=== PATIENT | female | born 1970 | race Caucasian/White ===

== ENCOUNTER 2016-12-03 06:58 | Day surgery (SDC) | payer OTHER ==
--- NOTE | 2016-11-29 01:25 | PREOPHP ---
DATE OF ADMISSION: 12/03/2016 The patient is coming in for surgery on 12/03/2016. HISTORY OF PRESENT ILLNESS: A 46-year-old female 4, para 2, abortions 2; with 3 living nirmall jedn, as she had twins. This patient has a history of having abnormal bleeding, repeated abnormal P ap smears, and she has been referred to me by her clinic due to endometrial hyperplasia. She had an endometrial biopsy with negative results. Her last period was 4 years ago and has started bleeding again heavily recently. She has lost 60 pounds. PAST MEDICAL HISTORY: She had 2 C-sections, left knee surgery, breast augmentation, gallbladder sanya mendy, 3 laparoscopies, liver biopsy, GI problems, brain surgery as she head trauma with bleeding, ps oriasis, and there is fatty liver, diverticulosis, and hiatal hernia. ALLERGIES: THE PATIENT IS NOT ALLERGIC TO ANY MEDICATIONS. The patient is to see her primary doctor for approval for this procedure due to abnormal INR. She h ad recently been treated with antibiotics due to a UTI. MEDICATIONS: She has been on different medications, given by her clinic. I do not have the list of medication that she has been on at this present time. The patient has been on: 1. Nortriptyline. 2. Benadryl. 3. Metoprolol. 4. Digitek. 5. Potassium. 6. Gabapentin. PAST SURGICAL HISTORY: The patient also has a history of 2 C-sections, tonsillectomy, LEEP cone, an d brain surgery in 2015. The patient is scheduled for a D and C to rule out malignancy. She is status post brain surgery. T here was cervical stenosis, abnormal uterine bleeding, and early fibroid. The patient will be place d on control pills after the D and C and the biopsy is negative for malignancy. SOCIAL HISTORY: She does smoke 3 cigarettes a day for the last 20 years. She drinks socially and p ossibly more than she is able to accept. FAMILY HISTORY: Hypertension. PHYSICAL EXAMINATION: VITAL SIGNS: Blood pressure 110/60, pulse is 80, she is afebrile, she weighs 183, she is 5 feet 2 i nches. HEAD AND NECK: Normal. BREASTS: With implants. HEART: Normal sinus rhythm with mild murmur. BACK: Normal. ABDOMEN: Soft, nontender, no masses. SKIN: With disseminated psoriatic lesions. GENITOURINARY: Genitalia is normal with atrophy. Uterus is retroverted and painful. Adnexa are ne gative. RECTAL: Negative. NEUROLOGIC: Negative. DIAGNOSES: 1. Abnormal uterine bleeding. 2. Previous section x2. 3. Endometrial hyperplasia. 4. Cervical stenosis. 5. Fibroid uterus. 6. Psoriasis. She is undergoing a fractional D and C to assess her endometrium and to further give her treatment f or her bleeding. She has been advised of the possible risks and possible complications of the surge ry with her alternatives and options. Written information was provided. She had no more questions and agreed to go ahead with the procedure with full understanding and no more questions. Dictated By: TERRENCE KRUSE/NTS Conf#: [id number] DID#: [id number]
[2016-12-02 09:38] VITALS: BMI 34.3
[~2016-12-03] VITALS: Ht 157.5 cm; Wt 82.0 kg
[2016-12-03] VITALS (20 sets, daily range): BP systolic 76–127; BP diastolic 42–74; PULSE 88–110; RESP 14–27; Ht 157.5 cm; Wt 82.0 kg
[~2016-12-03 06:58] MED LIST: AMIT50TA3 PO; DIAZ-90 PO; FURO20TA3 PO; IBUP400T22 PO; IBUP800T25 PO; LACT20SO2 PO; ONDA4TAB35 PO; OXYC5CAP17 PO; PANT40TA4 PO; POTA20TA8 PO; SPIR50TA PO; TRAM50TA2 PO
[2016-12-03] MEDS ORDERED: CEFAZOLIN 2 GM/50 ML (PMX) 50 ML IVPB ONE (07:00)
[2016-12-03] MEDS ORDERED: DIGO250T PO (08:01)
[2016-12-03] MEDS ORDERED: DOCU-159 PO (08:02)
[2016-12-03] MEDS ORDERED: GABA300C16 PO (08:03)
[2016-12-03] MEDS ORDERED: NORT50CA PO (08:03)
[2016-12-03] MEDS ORDERED: OMEP40CA6 PO (08:04)
[2016-12-03] MEDS ORDERED: LIDO15CR9 TP (08:05)
[2016-12-03] MEDS ORDERED: BEN50 PO (08:05)
[2016-12-03] MEDS ORDERED: DICL100G37 TOP (08:05)
[2016-12-03] MEDS ORDERED: KETOROLAC 30 MG INJ ONE (09:08)
[2016-12-03] MEDS ORDERED: METOCLOPRAMIDE 10 MG INJ ONE (09:08)
[2016-12-03] MEDS ORDERED: PROPOFOL 20 ML ONE (09:08)
[2016-12-03] MEDS ORDERED: MIDAZOLAM 1 MG/ML 2 ML INJ ONE (09:08)
--- NOTE | 2016-12-03 09:17 | HPN ---
Date/Time of Note Date/Time of Note DATE: 12/03/16 TIME: 09:16 Interval H&P Admission Note Pt. seen H&P reviewed: No system changes TERRENCE COLBERT MD Dec 03, 2016 09:17
[2016-12-03] MEDS ORDERED: CEFAZOLIN 1 GM INJ ONE (09:29)
[2016-12-03] MEDS ORDERED: FENTAnyl 50 MCG/ML VIAL ONE (09:30)
[2016-12-03] MEDS ORDERED: OXYCODONE/ACETAMINOPHEN (5/325) TAB PO PRN ×2 (10:00)
[2016-12-03] MEDS ORDERED: HYDROmorphONE (0.2 MG/ML) 10ML SYG IV PRN ×3 (10:00)
[2016-12-03] MEDS ORDERED: METOCLOPRAMIDE 10 MG INJ IV PRN (10:00)
[2016-12-03] MEDS ORDERED: DIPHENHYDRAMINE 50 MG INJ IV PRN (10:00)
[2016-12-03] MEDS ORDERED: ONDANSETRON 4 MG INJ IV PRN ×2 (10:00→10:30)
[2016-12-03] MEDS ORDERED: MEPERIDINE 25 MG INJ IV PRN (10:00)
--- NOTE | 2016-12-03 10:03 | PD.PPDC ---
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
--- NOTE | 2016-12-03 10:12 | OPR ---
Date/Time of Note Date/Time of Note DATE: 12/03/16 TIME: 10:04 Operative Report Free Text/Dictation Procedure The patient was placed in the lithotomy position, the perineal vaginal area were prepped and draped and confirmatory examination under anesthesia revealed that she had pelvic prolapse of the bladder and rectum to a grade 2 with marked atrophy of the vagina. The cervix was non-prolapsed and stenotic,the ECC was done and the uterus was sounded to a depth of 3 inches and dilated with dilators and a hysteroscope was placed in. Visualization of the cavity was clear with no obvious fibroids or polyps. The hysteroscope was removed then the endometrium was scraped anteriorly posteriorly, laterally and the fundal florian. A very scanty tissue was obtained. The patient tolerated the procedure well and left the OR awake and stable, sponge counts and instruments counts were correct and intravenous antibiotics were given for prophylaxis Procedure Date: Dec 03, 2016 Preoperative Diagnosis ABNORMAL UTERINE BLEEDING ENDOMETRIAL HYPERPLASIA CERVICAL STENOSIS FIBROID UTERUS PSORIASIS Postoperative Diagnosis SAME Operation Performed HYSTEROSCOPY D&C Surgeon: TERRENCE COLBERT MD Anesthesia: general Anesthesiologist: OBI BRIDGES MD Estimated Blood Loss: none Complications: None Pt Condition Post Procedure: stable Disposition: PACU TERRENCE COLBERT MD Dec 03, 2016 10:12
[2016-12-03] MEDS ORDERED: KETOROLAC 30 MG INJ IV PRN (10:30)
[2016-12-03] MEDS ORDERED: EPHEDrine SULFATE 50 MG/5 ML SYG ONE (10:56)
[2016-12-03] MEDS ORDERED: EPHEDrine SULFATE 50 MG/5 ML SYG IV PRN (11:00)
== END 2016-12-03 12:24 | disposition home or self-care (01) ==
LOC: SDS 06:58
PROVIDERS: ATTEND Obstetrics & Gynecology
DX: N85.00 Endometrial hyperplasia, unspecified (principal); N88.2 Stricture and stenosis of cervix uteri; D25.9 Leiomyoma of uterus, unspecified; L40.9 Psoriasis, unspecified
CPT/HCPCS: 58558; 84703; J0690; J2175; J2250; J2405; J2765; J3010; Z7512; Z7610; 88305; J1885

== ENCOUNTER 2017-08-16 11:20 | Emergency (ER) | END 2017-08-16 21:54 | disposition left against medical advice (07) ==

== ENCOUNTER 2017-11-26 22:26 | Inpatient (IN) | END 2017-12-04 15:25 | disposition home or self-care (01) | DRG 354 ==

== ENCOUNTER 2017-12-05 11:28 | Inpatient (IN) | END 2017-12-10 16:20 | disposition home or self-care (01) | DRG 920 ==

== ENCOUNTER 2018-04-09 18:11 | Inpatient (IN) | END 2018-04-16 13:30 | disposition home or self-care (01) | DRG 434 ==

== ENCOUNTER 2018-04-26 18:39 | Inpatient (IN) | END 2018-05-02 11:49 | disposition home or self-care (01) | DRG 372 ==

== ENCOUNTER 2018-05-15 12:55 | Emergency (ER) | END 2018-05-15 18:16 | disposition home or self-care (01) ==

== ENCOUNTER 2018-06-14 10:28 | Emergency (ER) | payer OTHER ==
[~2018-06-14] VITALS: Ht 157.5 cm; Wt 71.8 kg
[~2018-06-14 10:28] MED LIST changes: -AMIT50TA3 PO; +CARAS PO; -DIAZ-90 PO; -FURO20TA3 PO; -IBUP400T22 PO; -IBUP800T25 PO; -LACT20SO2 PO; +METO5TAB58 PO; +OMEP20CA16 PO; +ONDA4TAB13 PO; -ONDA4TAB35 PO; +OXYC-279 PO; -OXYC5CAP17 PO; -PANT40TA4 PO; +POTA20TA15 PO; -POTA20TA8 PO; +SPIR100T PO; +TRAM50TA PO; -TRAM50TA2 PO
[2018-06-14 10:36] VITALS: Ht 157.5 cm; Wt 71.8 kg
[2018-06-14 11:40] VITALS: BP 133/86; PULSE 117; RESP 20
--- NOTE | 2018-06-14 12:13 | ERD ---
ER Documentation Chief Complaint Chief Complaint liver cirrhosis sent by for paracentesis and possible uti HPI The patient is a 48-year-old female, presenting to the ER for abdominal pa racentesis and possible UTI. She has recurrent abdominal ascites for the last couple days, her last abdominal paracentesis was recently, denies fever, chills, neck pain, chest pain, dyspnea, complains of abdominal distention, complaint of dysuria, denies diarrhea. Medical history: Cirrhosis, bipolar, PTSD, OCD, hypertension, IBS Past surgical history: Cholecystectomy ROS All systems reviewed and are negative except as per history of present illness. Medications Home Meds Active Scripts Ondansetron (Ondansetron Odt) 4 Mg Tab.rapdis, 4 MG PO Q6H PRN for NAUSEA AND/OR VOMITING, #10 TAB Prov:ALEXANDRIA QUIROGA MD 06/14/18 Hydrocodone/Acetaminophen ([place] 5-325 Tablet) 1 Each Tablet, 1 TAB PO Q6H PRN for PAIN, #5 TAB Prov:ALEXANDRIA QUIROGA MD 06/14/18 Sucralfate* (Carafate*) 1 Gm/10 Ml Susp, 1 GM PO QID for 30 Days, EA Prov:RADHA MORALES MD 05/20/18 Metoclopramide* (Reglan*) 5 Mg Tablet, 5 MG PO DAILY PRN for NAUSEA AND/OR VOMITING for 30 Days, TAB Prov:RADHA MORALES MD 05/20/18 Reported Medications Oxycodone HCl/Acetaminophen (Percocet 5-325 mg Tablet) 1 Each Tablet, 1 EACH PO DAILY PRN for PAIN, TAB 05/15/18 Tramadol Hcl* (Ultram*) 50 Mg Tablet, 50 MG PO BID PRN for PAIN, TAB 05/15/18 Spironolactone* (Aldactone*) 100 Mg Tablet, 100 MG PO BID, #60 TAB 05/15/18 Spironolactone* (Aldactone*) 50 Mg Tablet, 50 MG PO DAILY, #30 TAB 05/15/18 Ondansetron Hcl* (Zofran*) 4 Mg Tab, 4 MG PO Q6H PRN for NAUSEA AND OR VOMITING, TAB 05/15/18 Omeprazole* (Omeprazole*) 20 Mg Capsule.dr, 20 MG PO BID, #60 CAP 05/15/18 Potassium Chloride* (K-Dur*) 20 Meq Tab.prt.sr, 20 MEQ PO BID, TAB.SA 05/15/18 Allergies Allergies: Coded Allergies: No Known Allergy (Unverified , 06/14/18) PMhx/Soc History of Surgery: No (brain surgery, tosillectomy, cholecystectomy, hernia surgery) Anesthesia Reaction: No Hx 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 Disorder: No Hx Respiratory Disorders: No Hx Cardiac Disorders: Yes (enlarged heart, hyperlipidemia) Hx Psychiatric Problems: Yes (Bipolar, PTSD, OCD) Hx Miscellaneous Medical Probl: Yes (LIVER CIRRHOSIS ) Hx Alcohol Use: No (last drink x 2 years ago) Hx Substance Use: No (denies) Hx Tobacco Use: Yes Smoking Status: Current some day smoker Physical Exam Vitals Vital Signs Date Temp Pulse Resp B/P (MAP) Pulse Ox O2 O2 Flow FiO2 Time Delivery Rate 06/14/18 98.0 117 20 133/86 99 Room Air 11:40 (102) 06/14/18 97.0 120 18 129/77 99 10:36 (94) Physical Exam Const: No acute distress. Head: Atraumatic. Eyes: Normal Conjunctiva. ENT: Normal External Ears, Nose and Mouth. Neck: Full range of motion. No meningismus. Resp: Clear to auscultation bilaterally. Cardio: Regular tachycardic Abd: Soft, normal bowel sounds, ascites, nontender Skin: No petechiae or rashes. Back: No midline or flank tenderness. Ext: No cyanosis, or edema. Neur: Awake and alert. No focal deficit Psych: Normal Mood and Affect. Results 24 hrs Laboratory Tests Test 06/14/18 11:35 Urine Color KALEB Urine Clarity SLIGHTLY CLOUDY Urine pH 5.0 Urine Specific [place] 1.031 Urine Ketones NEGATIVE mg/dL Urine Nitrite NEGATIVE mg/dL Urine Bilirubin 1+ mg/dL Urine Urobilinogen 2+ mg/dL Urine Leukocyte Esterase NEGATIVE Cindi/ul Urine Microscopic RBC 0 /HPF Urine Microscopic WBC 2 /HPF Urine Squamous Epithelial Cells FEW /HPF Urine Mucus MODERATE /HPF Urine Hemoglobin NEGATIVE mg/dL Urine Glucose NEGATIVE mg/dL Urine Total Protein 1+ mg/dl Urine Test NEGATIVE Current Medications Medications Dose Sig/Corey Start Time Status Last (Trade) Ordered Route PRN Stop Time Admin Dose Reason Admin Lidocaine 5 ml STK-MED 06/14/18 DC 06/14/18 (Xylocaine ONCE .ROUTE 12:29 06/14/18 12:30 1% (Mpf)) 12:30 Ondansetron 4 mg ONCE STAT 06/14/18 DC HCl (Zofran ODT 13:30 06/14/18 Odt) 13:35 Ondansetron 4 mg ONCE STAT 06/14/18 DC HCl (Zofran ODT 13:30 06/14/18 Odt) 13:35 Procedures/[place] [id number] Radiology Main Line: [phone] DIAGNOSTIC IMAGING REPORT Patient: ESTHER AGUILLON : 1970 Age: 48 Sex: F MR #: [id number] DOS: 06/14/18 1128 Ordering MD: ANDRIA PELAEZ MD Location: E/R Room/Bed: PROCEDURE: Ultrasound guided paracentesis. CLINICAL INDICATION: Ascites and shortness of breath. COMPARISON: May 20, 2018. TECHNIQUE: The risks, benefits, and alternatives were explained to the patient and/or the patient's family, including but not limited to bleeding, infection, pain, visceral or vascular damage, shock, and . The patient and/or the patient's family understood the risks and the alternatives and wished to proceed with the procedure. Informed written consent was obtained. A procedural time out was performed. The patient's name, date of , and procedure to be performed were verified. Utilizing ultrasound guidance, optimal location for entry to the peritoneal cavity was ascertained. The overlying skin was prepped and draped in the usual sterile fashion. Approximately 10 ml of 1% Xylocaine was injected locally for pain control. Using ultrasound guidance, an 8 Uzbek catheter was introduced into the peritoneal cavity in the right lower quadrant without difficulty. Specimens: None. Blood loss: 1 ml. Complications: None. Security Officer: None. Anesthesia: Local. Graft/Implant: None. FINDINGS: Initial images demonstrate ascites. Approximately 5 liters of serous fluid was aspirated and discarded. The patient tolerated the procedure well without complication. IMPRESSION: 1. Successful ultrasound-guided paracentesis. RPTAT: QQ .Gilson Buckner MD, MD Date Time Electronically viewed and signed by .Gilson Buckner MD, MD on 06/14/2018 15:37 .R/ CC: ANDRIA PELAEZ MD [id number] MEDICAL MAKING DECISION: The patient is a 48-year-old female, presenting to the ER for therapeutic abdominocentesis, she had abdominocentesis by radiologist with good response, stable for outpatient follow-up. I do not suspect SBP. She requested pain medications she was given [place] 5 mg p.o. and Zofran ODT The differential diagnoses considered include but are not limited to choledocho lithiasis, cholangitis, pancreatitis, hepatitis, gastritis, peptic ulcer disease, gastric ulcer, appendicitis, cystitis, diverticulitis, partial small bowel obstruction. Departure Diagnosis: Primary Impression: Ascites Condition: Good Comments She was discharge with 5 tablets of [place] and Zofran ODT I discussed the findings with the patient. I advised the patient to follow-up with the primary physician in about 1-2 days, sooner if needed and return if any concern. Disclaimer: Inadvertent spelling and grammatical errors are likely due to EHR/dictation software use and do not reflect on the overall quality of patient care. Also, please note that the electronic time recorded on this note does not necessarily reflect the actual time of the patient encounter. ALEXANDRIA QUIROGA MD Jun 14, 2018 12:13
[2018-06-14] MEDS ORDERED: LIDOCAINE 1% (MPF) 5 ML VIAL ONE (12:29)
--- NOTE | 2018-06-14 12:30 | NUR ---
ULTRASOUND GUIDED PARACENTESIS PERFORMED BY DR OVIEDO,5000ML FLUID ASPIRATED AND DISCARDED
[2018-06-14] MEDS ORDERED: ONDANSETRON (ODT) 4 MG TAB ODT STA ×2 (13:30)
[2018-06-14] MEDS ORDERED: ONDA4TAB14 PO (14:01)
[2018-06-14] MEDS ORDERED: HYDR-4011 PO (14:01)
== END 2018-06-14 13:50 | disposition home or self-care (01) ==
LOC: E/R 10:28
DX: R18.8 Other ascites (principal); F17.210 Nicotine dependence, cigarettes, uncomplicated
CPT/HCPCS: 49083; 81001; 84703; Z7502; Z7610

== ENCOUNTER 2018-06-28 17:29 | Emergency (ER) | payer OTHER ==
[~2018-06-28] VITALS: Ht 167.6 cm; Wt 80.0 kg
[~2018-06-28 17:29] MED LIST changes: +HYDR-4011 PO; +ONDA4TAB14 PO
[2018-06-28 17:35] VITALS: Ht 167.6 cm; Wt 80.0 kg
[2018-06-28] MEDS ORDERED: ONDANSETRON 4 MG INJ IM STA (17:47)
[2018-06-28] MEDS ORDERED: FENTAnyl 50 MCG/ML VIAL IV ONE (18:30)
[2018-06-28] MEDS ORDERED: MIDO5TAB PO (18:33)
[2018-06-28] MEDS ORDERED: LACT10SO53 PO (18:35)
[2018-06-28] MEDS ORDERED: ALBU18HF INHALATION (18:35)
[2018-06-28] MEDS ORDERED: LIDOCAINE 1% (MPF) 5 ML VIAL ONE (19:31)
--- NOTE | 2018-06-28 19:35 | ERD ---
ER Documentation Chief Complaint Chief Complaint BIB RA FOR EVAL OF [place] ASCITES HPI 48-year-old female with a history of cirrhosis with multiple previous visits for paracenteses brought in by ambulance from home complaining of worsening abdominal distention and pain. Her distention is worse than it usually is, causing her increasing pain. She always has pressure-like pain but she also has bilateral pain on the sides of her abdomen that feels like a stretching pain. She denies any fever, chills, diarrhea, constipation. She endorses nausea but no vomiting. She is currently taking spironolactone but not on Lasix. ROS All systems reviewed and are negative except as per history of present illness. Medications Home Meds Active Scripts Metoclopramide* (Reglan*) 10 Mg Tablet, 10 MG PO Q6 PRN for NAUSEA AND/OR VOMITING, #10 TAB Prov:RADHA MORALES MD 06/28/18 Hydrocodone/Acetaminophen ([place] 5-325 Tablet) 1 Each Tablet, 1 TAB PO Q6H PRN for PAIN, #7 TAB Prov:RADHA MORALES MD 06/28/18 Ondansetron (Ondansetron Odt) 4 Mg Tab.rapdis, 4 MG PO Q6H PRN for NAUSEA AND/OR VOMITING, #10 TAB Prov:ALEXANDRIA QUIROGA MD 06/14/18 Metoclopramide* (Reglan*) 5 Mg Tablet, 5 MG PO DAILY PRN for NAUSEA AND/OR VOMITING for 30 Days, TAB Prov:RADHA MORALES MD 05/20/18 Reported Medications Lactulose (Constulose) 10 Gm/15 Ml Solution, 10 GM PO NEEDED 06/28/18 Albuterol Sulfate* (Ventolin HFA*) 18 Gm Hfa.aer.ad, 2 PUFF INHALATION Q4H, #1 INHALER 06/28/18 Midodrine* (Midodrine*) 5 Mg Tablet, 5 MG PO TID, TAB 06/28/18 Spironolactone* (Aldactone*) 100 Mg Tablet, 100 MG PO BID, #60 TAB 05/15/18 Spironolactone* (Aldactone*) 50 Mg Tablet, 50 MG PO DAILY, #30 TAB 05/15/18 Omeprazole* (Omeprazole*) 20 Mg Capsule.dr, 20 MG PO BID, #60 CAP 05/15/18 Potassium Chloride* (K-Dur*) 20 Meq Tab.prt.sr, 20 MEQ PO BID, TAB.SA 05/15/18 Discontinued Reported Medications Oxycodone HCl/Acetaminophen (Percocet 5-325 mg Tablet) 1 Each Tablet, 1 EACH PO DAILY PRN for PAIN, TAB 05/15/18 Tramadol Hcl* (Ultram*) 50 Mg Tablet, 50 MG PO BID PRN for PAIN, TAB 05/15/18 Ondansetron Hcl* (Zofran*) 4 Mg Tab, 4 MG PO Q6H PRN for NAUSEA AND OR VOMITING, TAB 05/15/18 Discontinued Scripts Hydrocodone/Acetaminophen ([place] 5-325 Tablet) 1 Each Tablet, 1 TAB PO Q6H PRN for PAIN, #5 TAB Prov:ALEXANDRIA QUIROGA MD 06/14/18 Sucralfate* (Carafate*) 1 Gm/10 Ml Susp, 1 GM PO QID for 30 Days, EA Prov:RADHA MORALES MD 05/20/18 Allergies Allergies: Coded Allergies: No Known Allergy (Unverified , 06/28/18) PMhx/Soc History of Surgery: No (brain surgery, tosillectomy, cholecystectomy, hernia surgery, c section x 2) Anesthesia Reaction: No Hx 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 Disorder: No Hx Respiratory Disorders: No Hx Cardiac Disorders: Yes (enlarged heart, hyperlipidemia) Hx Psychiatric Problems: Yes (Bipolar, PTSD, OCD) Hx Miscellaneous Medical Probl: Yes (LIVER CIRRHOSIS ) Hx Alcohol Use: No (last drink x 2 years ago) Hx Substance Use: No (denies) Hx Tobacco Use: No (last smoke x 1 week ago) Smoking Status: Former smoker FmHx Family History: No diabetes Physical Exam Vitals Vital Signs Date Temp Pulse Resp B/P (MAP) Pulse Ox O2 O2 Flow FiO2 Time Delivery Rate 06/28/18 102 16 119/82 99 Room Air 20:30 (94) 06/28/18 115 11 130/92 99 Room Air 17:50 (105) 06/28/18 98.2 115 16 125/89 99 17:35 (101) Physical Exam Const: Appears to be in distress due to pain, nontoxic Head: Atraumatic Eyes: Normal Conjunctiva ENT: Normal External Ears, Nose and Mouth. Neck: Full range of motion. No meningismus. Resp: Clear to auscultation bilaterally Cardio: Regular rate and rhythm, no murmurs Abd: Soft, very distended, fluid wave. No hernias noted. No peritoneal signs normal bowel sounds Skin: No petechiae or rashes Back: No midline or flank tenderness Ext: No cyanosis, or edema Neur: Awake and alert Psych: Normal Mood and Affect Result Diagram: 06/28/18180706/28/181807 Results 24 hrs Laboratory Tests Test 06/28/18 18:08 White Blood Count 7.3 10^3/ul Red Blood Count 2.79 10^6/ul Hemoglobin 10.0 g/dl Hematocrit 29.3 % Mean Corpuscular Volume 105.0 fl Mean Corpuscular Hemoglobin 35.8 pg Mean Corpuscular Hemoglobin Concent 34.1 g/dl Red Cell Distribution Width 15.8 % Platelet Count 69 10^3/UL Mean Platelet Volume 9.0 fl Immature Granulocytes % 1.000 % Neutrophils % % Segmented Neutrophils % (Manual) 67 % Lymphocytes % % Lymphocytes % (Manual) 18 % Reactive Lymphocytes % (Manual) 4 % Monocytes % % Monocytes % (Manual) 7 % Eosinophils % % Eosinophils % (Manual) 4 % Basophils % % Nucleated Red Blood Cells % 0.0 /100WBC Immature Granulocytes # 0.070 10^3/ul Neutrophils # 10^3/ul Lymphocytes (Manual) 1.3 10^3/ul Lymphocytes # 10^3/ul Reactive Lymphocytes # 0.2 10^3/ul Monocytes # 10^3/ul Monocytes # (Manual) 0.5 10^3/ul Eosinophils # 10^3/ul Basophils # 10^3/ul Nucleated Red Blood Cells # 10^3/ul Platelet Estimate DECREASED Polychromasia 1+ Poikilocytosis 2+ Anisocytosis 1+ Macrocytosis 1+ Ovalocytes 2+ Prothrombin Time 24.6 Sec Prothrombin Time Ratio 1.9 INR International Normalized Ratio 2.21 Activated Partial Thromboplast Time 35.9 Sec Sodium Level 129 mmol/L Potassium Level 4.3 mmol/L Chloride Level 99 mmol/L Carbon Dioxide Level 22 mmol/L Anion Gap 8 Blood Urea Nitrogen 6 mg/dl Creatinine 0.44 mg/dl Est Glomerular Filtrat Rate mL/min > 60 mL/min Glucose Level 129 mg/dl Calcium Level 8.0 mg/dl Total Bilirubin 6.7 mg/dl Direct Bilirubin 0.60 mg/dl Indirect Bilirubin 6.1 mg/dl Aspartate Amino Transf (AST/SGOT) 88 IU/L Alanine Aminotransferase (ALT/SGPT) 55 IU/L Alkaline Phosphatase 143 IU/L Total Protein 7.1 g/dl Albumin 2.7 g/dl Globulin 4.40 g/dl Albumin/Globulin Ratio 0.61 Current Medications Medications Dose Sig/Corey Start Time Status Last (Trade) Ordered Route PRN Stop Time Admin Dose Reason Admin Ondansetron 4 mg ONCE STAT 06/28/18 DC 06/28/18 HCl (Zofran IM 17:47 18:10 Inj) 06/28/18 17:48 Fentanyl 50 mcg ONCE ONCE 06/28/18 DC 06/28/18 (Sublimaze) IV 18:30 18:27 06/28/18 18:31 Lidocaine 5 ml STK-MED 06/28/18 DC 06/28/18 (Xylocaine ONCE .ROUTE 19:31 19:35 1% (Mpf)) 06/28/18 19:32 1 tab ONCE ONCE 06/28/18 DC 06/28/18 Acetaminophen PO 20:00 20:28 / 06/28/18 20:01 Hydrocodone Bitart ([place] (5/325)) 10 mg ONCE ONCE 06/28/18 DC 06/28/18 Metoclopramid IV 20:00 20:28 e HCl 06/28/18 20:01 (Reglan) Procedures/[facility] EMERGENT LABS AND DIAGNOSTIC STUDIES: Lab Results above were reviewed and interpreted by me. CBC: Mild anemia, thrombocytopenia. No evidence of infection CMP: Hyponatremia, consistent with fluid overload due to ascites. Liver function tests abnormalities consistent with chronic liver disease. Coags abnormal, at patient's baseline, consistent with coagulopathy due to liver disease Initial Nursing notes reviewed. Previous Medical Records requested via the Electronic Health Record. EMERGENCY DEPARTMENT COURSE / MEDICAL DECISION MAKING: Procedure - Paracentesis by me: Patient consented, sterilely draped, full prep, gown, glove, mask, time out pe rformed. Anesthesia: 1% lidocaine locally Location: Left lower Quadrant Device: Needle aspiration with [id number] drainage Results: 5 liters clear fluid, without bleeding No complications. ED Ultrasound: Fluid pocket localized by technician plant and maintenance under concurrent ultrasound guidance. Real time image archived in the medical record confirming anatomy. Patient tolerated the procedure well. I do not suspect SBP or other cause of acute surgical abdomen. On repeat abdominal exam, she did not have any specific location of tenderness or any peritoneal signs. She was treated with pain medications and antiemetics for her symptoms. Prescription for pain medications and antiemetics given. I do not feel she needs hospitalization at this point. Discharge instructions discussed. Patient's blood pressure was elevated (>120/80) but appears stable without evidence of hypertensive emergency or urgency. The patient was counseled about the risks of hypertension and urged to pursue outpatient monitoring and therapy within a week with their primary care physician. Departure Diagnosis: Primary Impression: Ascites Ascites type: due to alcoholic cirrhosis Qualified Codes: K70.31 - Alcoholic cirrhosis of liver with ascites Additional Impressions: Nausea and vomiting Vomiting type: unspecified Vomiting Intractability: non-intractable Qualified Codes: R11.2 - Nausea with vomiting, unspecified Generalized abdominal pain Condition: Stable EKRADHA KAHN MD Jun 28, 2018 19:35
[2018-06-28] MEDS ORDERED: HYDR-4011 PO (19:48)
[2018-06-28] MEDS ORDERED: METO10TA92 PO (19:48)
[2018-06-28] MEDS ORDERED: HYDROCODONE/APAP (5/325) TAB PO ONE (20:00)
[2018-06-28] MEDS ORDERED: METOCLOPRAMIDE 10 MG INJ IV ONE (20:00)
[2018-06-28 20:30] VITALS: BP 119/82; PULSE 102; RESP 16
== END 2018-06-28 21:11 | disposition home or self-care (01) ==
LOC: E/R 17:29
DX: K70.31 Alcoholic cirrhosis of liver with ascites (principal); R40.2142 Coma scale, eyes open, spontaneous, at arrival to emergency department; R40.2252 Coma scale, best verbal response, oriented, at arrival to emergency department; R40.2362 Coma scale, best motor response, obeys commands, at arrival to emergency department; Z87.891 Personal history of nicotine dependence
CPT/HCPCS: 36415; 49083; 80053; 85025; 85610; 85730; 96372; 96374; J2405; J2765; J3010; Z7502; Z7610

== ENCOUNTER 2018-07-04 11:25 | Inpatient (IN) | payer OTHER ==
[~2018-07-04] VITALS: Ht 165.1 cm; Wt 68.0 kg
[~2018-07-04 11:25] MED LIST changes: +ALBU18HF INHALATION; -CARAS PO; +LACT10SO53 PO; +METO10TA92 PO; +MIDO5TAB PO; -ONDA4TAB13 PO; -OXYC-279 PO; -TRAM50TA PO
[2018-07-04 11:32] VITALS: Ht 165.1 cm; Wt 68.0 kg
[2018-07-04] MEDS ORDERED: PIPER-TAZO 3.375 GM IV (PMX) 100 ML IVPB STA (11:38)
[2018-07-04] MEDS ORDERED: HYDROmorphONE 2 MG/ML SYG IV STA ×2 (11:38→13:14)
[2018-07-04] MEDS ORDERED: VANCOMYCIN 1 GM (PMX) 250 ML IVPB STA (11:38)
[2018-07-04] MEDS ORDERED: ONDANSETRON 4 MG INJ IV STA (11:38)
[2018-07-04] MEDS ORDERED: SODIUM CHLORIDE 0.9% 1L BAG IV* STA (12:15)
[2018-07-04] MEDS ORDERED: LIDOCAINE 1% (MPF) 5 ML VIAL ONE (13:41)
[2018-07-04] MEDS ORDERED: ONDANSETRON 4 MG INJ IV PRN (14:30)
[2018-07-04] MEDS ORDERED: ACETAMINOPHEN 325 MG TAB PO PRN (14:30)
--- NOTE | 2018-07-04 14:56 | ERD ---
ER Documentation Chief Complaint Chief Complaint Left foot swelling reddness also distended abdomen HPI Patient is a 48-year-old female with cirrhosis who presents with swelling. The patient was brought in by ambulance. She had a recent paracentesis but was supposed to have more done. She has "edema in legs" bilaterally. The patient says that she cannot walk because of the pain. She has redness of the left leg and swelling as well. Her symptoms started 4 days ago and have worsened. She has had no treatment as of yet. Upon review of old medical records the patient has multiple visits to the ER for various complaints. She goes to the [facility]. ROS All systems reviewed and are negative except as per history of present illness. Medications Home Meds Active Scripts Hydrocodone/Acetaminophen ([place] 5-325 Tablet) 1 Each Tablet, 1 TAB PO Q6H PRN for PAIN, #7 TAB Prov:RADHA MORALES MD 06/28/18 Ondansetron (Ondansetron Odt) 4 Mg Tab.rapdis, 4 MG PO Q6H PRN for NAUSEA AND/OR VOMITING, #10 TAB Prov:ALEXANDRIA QUIROGA MD 06/14/18 Reported Medications Lactulose (Constulose) 10 Gm/15 Ml Solution, 10 GM PO NEEDED 06/28/18 Albuterol Sulfate* (Ventolin HFA*) 18 Gm Hfa.aer.ad, 2 PUFF INHALATION Q4H, #1 INHALER 06/28/18 Midodrine* (Midodrine*) 5 Mg Tablet, 5 MG PO TID, TAB 06/28/18 Spironolactone* (Aldactone*) 100 Mg Tablet, 100 MG PO BID, #60 TAB 05/15/18 Omeprazole* (Omeprazole*) 20 Mg Capsule.dr, 20 MG PO BID, #60 CAP 05/15/18 Potassium Chloride* (K-Dur*) 20 Meq Tab.prt.sr, 20 MEQ PO BID, TAB.SA 05/15/18 Discontinued Reported Medications Spironolactone* (Aldactone*) 50 Mg Tablet, 50 MG PO DAILY, #30 TAB 05/15/18 Oxycodone HCl/Acetaminophen (Percocet 5-325 mg Tablet) 1 Each Tablet, 1 EACH PO DAILY PRN for PAIN, TAB 05/15/18 Tramadol Hcl* (Ultram*) 50 Mg Tablet, 50 MG PO BID PRN for PAIN, TAB 05/15/18 Ondansetron Hcl* (Zofran*) 4 Mg Tab, 4 MG PO Q6H PRN for NAUSEA AND OR VOMITING, TAB 05/15/18 Discontinued Scripts Metoclopramide* (Reglan*) 10 Mg Tablet, 10 MG PO Q6 PRN for NAUSEA AND/OR VOMITING, #10 TAB Prov:RADHA MORALES MD 06/28/18 Metoclopramide* (Reglan*) 5 Mg Tablet, 5 MG PO DAILY PRN for NAUSEA AND/OR VOMITING for 30 Days, TAB Prov:RADHA MORALES MD 05/20/18 Hydrocodone/Acetaminophen ([place] 5-325 Tablet) 1 Each Tablet, 1 TAB PO Q6H PRN for PAIN, #5 TAB Prov:ALEXANDRIA QUIROGA MD 06/14/18 Sucralfate* (Carafate*) 1 Gm/10 Ml Susp, 1 GM PO QID for 30 Days, EA Prov:RADHA MORALES MD 05/20/18 Allergies Allergies: Coded Allergies: No Known Allergy (Unverified , 07/04/18) PMhx/Soc History of Surgery: No (brain surgery, tosillectomy, cholecystectomy, hernia surgery, c section x 2) Anesthesia Reaction: No Hx 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 Disorder: No Hx Respiratory Disorders: No Hx Cardiac Disorders: Yes (enlarged heart, hyperlipidemia) Hx Psychiatric Problems: Yes (Bipolar, PTSD, OCD) Hx Miscellaneous Medical Probl: Yes (LIVER CIRRHOSIS ) Hx Alcohol Use: Yes (last drink x 2 years ago) Hx Substance Use: No (denies) Hx Tobacco Use: Yes Smoking Status: Former smoker FmHx Family History: No diabetes Physical Exam Vitals Vital Signs Date Temp Pulse Resp B/P (MAP) Pulse Ox O2 O2 Flow FiO2 Time Delivery Rate 07/04/18 98.7 131 19 82/39 (53) 99 Room Air 14:42 07/04/18 134 19 114/64 98 Room Air 13:00 (81) 07/04/18 99.7 120 20 134/77 100 11:32 (96) Physical Exam Const: No acute distress Head: Atraumatic Eyes: Normal Conjunctiva ENT: Normal External Ears, Nose and Mouth. Neck: Full range of motion. No meningismus. Resp: Clear to auscultation bilaterally Cardio: Regular rate and rhythm, no murmurs Abd: Distended abdomen with positive fluid wave Skin: Redness to the left leg without crepitus consistent with cellulitis but doubt necrotizing fasciitis Back: No midline or flank tenderness Ext: Bilateral lower extremity edema with 2+ pitting Neur: Awake and alert Psych: Normal Mood and Affect Result Diagram: 07/04/18 1212 07/04/18 1212 Results 24 hrs Laboratory Tests Test 07/04/18 12:08 07/04/18 12:12 07/04/18 14:37 POC Venous Lactate 2.7 mmol/L 3.1 mmol/L White Blood Count 7.7 10^3/ul Red Blood Count 2.61 10^6/ul Hemoglobin 9.2 g/dl Hematocrit 27.6 % Mean Corpuscular Volume 105.7 fl Mean Corpuscular Hemoglobin 35.2 pg Mean Corpuscular 33.3 g/dl Hemoglobin Concent Red Cell Distribution Width 15.9 % Platelet Count 78 10^3/UL Mean Platelet Volume 9.7 fl Immature Granulocytes % 4.300 % Neutrophils % % Segmented Neutrophils % (Manual) 76 % Band Neutrophils % (Manual) 5 % Lymphocytes % % Lymphocytes % (Manual) 7 % Monocytes % % Monocytes % (Manual) 11 % Eosinophils % % Basophils % % Promyelocytes % (Manual) 1 % Nucleated Red Blood Cells % 0.0 /100WBC Immature Granulocytes # 0.330 10^3/ul Neutrophils # 10^3/ul Neutrophils # (Manual) 5.9 10^3/ul Band Neutrophils # 0.3 10^3/ul Lymphocytes (Manual) 0.5 10^3/ul Lymphocytes # 10^3/ul Monocytes # 10^3/ul Monocytes # (Manual) 0.8 10^3/ul Eosinophils # 10^3/ul Basophils # 10^3/ul Promyelocytes # 0.0 10^3/ul Nucleated Red Blood Cells # 10^3/ul Platelet Estimate SIG DECREASED Polychromasia 3+ Poikilocytosis 2+ Anisocytosis 1+ Macrocytosis 1+ Prothrombin Time 28.2 Sec Prothrombin Time Ratio 2.2 INR International Normalized Ratio 2.64 Activated Partial Thromboplast 37.4 Sec Time Sodium Level 127 mmol/L Potassium Level 5.6 mmol/L Chloride Level 95 mmol/L Carbon Dioxide Level 20 mmol/L Anion Gap 12 Blood Urea Nitrogen 23 mg/dl Creatinine 0.92 mg/dl Est Glomerular Filtrat Rate mL/min > 60 mL/min Glucose Level 98 mg/dl Lactic Acid Level 4.9 mmol/L Calcium Level 8.4 mg/dl Total Bilirubin 11.1 mg/dl Direct Bilirubin 4.70 mg/dl Indirect Bilirubin 6.4 mg/dl Aspartate Amino Transf (AST/SGOT) 58 IU/L Alanine 43 IU/L Aminotransferase (ALT/SGPT) Alkaline Phosphatase 104 IU/L Troponin I < 0.012 ng/ml Total Protein 6.7 g/dl Albumin 2.5 g/dl Globulin 4.20 g/dl Albumin/Globulin Ratio 0.59 Current Medications Medications Dose Sig/Corey Start Time Status Last (Trade) Ordered Route PRN Stop Time Admin Dose Reason Admin Vancomycin 250 ml @ ONCE STAT 07/04/18 DC 07/04/18 HCl 125 mls/hr IVPB 11:38 14:28 07/04/18 13:37 Piperacillin 100 ml @ ONCE STAT 07/04/18 DC 07/04/18 Sod/ 200 mls/hr IVPB 11:38 12:15 Tazobactam 07/04/18 12:07 Sod 1 mg ONCE STAT 07/04/18 DC 07/04/18 Hydromorphone IV 11:38 12:15 HCl 07/04/18 11:40 (Dilaudid) Ondansetron 4 mg ONCE STAT 07/04/18 DC 07/04/18 HCl (Zofran IV 11:38 12:15 Inj) 07/04/18 11:40 Sodium 2,040 ml BOLUS OVER 2 07/04/18 DC 07/04/18 Chloride HOURS STAT 12:15 12:15 (NS) IV* 07/04/18 12:16 1 mg ONCE STAT 07/04/18 DC 07/04/18 Hydromorphone IV 13:14 13:18 HCl 07/04/18 13:15 (Dilaudid) Lidocaine 5 ml STK-MED 07/04/18 DC 07/04/18 (Xylocaine ONCE .ROUTE 13:41 13:43 1% (Mpf)) 07/04/18 13:42 Ondansetron 4 mg BRIDGE ORDER 1/28/19 HCl (Zofran PRN IV 14:30 Inj) NAUSEA/VOMITI 07/05/18 14:29 NG 650 mg ER BRIDGE 07/04/18 Acetaminophen PRN PO 14:30 (Tylenol .MILD PAIN 07/05/18 14:29 Tab) 1-3 OR TEMP Procedures/MDM Sepsis Documentation: Patient's infectious symptoms have not stabilized and the patient is at risk of rapid decompensation. The patient will be admitted for careful hydration, antibiotic therapy, and infectious source control. SEVERE SEPSIS CRITERIA: Infectious source: Cellulitis End organ damage indicated by: Lactate greater than 2 SEPSIS MANAGEMENT Time of recognition of sepsis: 12:12 PM. Time of recognition of severe sepsis: 12:12 PM. Time of recognition of septic shock: No septic shock at this time. 3 HOUR BUNDLE Blood cultures x 2 before broad-spectrum antibiotics: Yes 30 ml/kg NS bolus completed Initial lactate 2.7 Repeat lactate 3.1 SEPTIC SHOCK ASSESSMENT: No lactic acid > 4.0, please note that the lactic acid of 4.9 was a mistake run by the lab No persistent hypotension (SBP < 90 or 40 mmHg drop, MAP < 65) despite 30 mL/kg IV fluid bolus VOLUME REASSESSMENT FOR SEPTIC SHOCK: No septic shock PERSISTENT HYPOTENSION TREATMENT: Comfort care no Central line not Required Vasopressor started not required I considered further perfusion assessment with CVP measurement, SCVO2, bedside ultrasound volume assessment, passive leg raise, trial of further fluid bolus. And proceeded with 30 ml/kg fluid bolus of NSS, broad spectrum antibiotics, and admission. The patient also had a paracentesis done. The patient was given broad-spectrum antibiotics and will be admitted to the care of the panel team. I spoke with Dr. Balbuena for admission to a medical surgical bed. CRITICAL CARE Critical care time 35 minutes Emergent fluid management while maintaining close respiratory support. Provision of immediate and broad-spectrum antibiotic therapy. Simultaneous assessment for possible sources in order to direct targeted therapy. Consideration for invasive and chemical support to prevent cardiopulmonary collapse. Critical care time is independent of procedures performed. Departure Diagnosis: Primary Impression: Severe sepsis Additional Impression: Cellulitis Site of cellulitis: extremity Site of cellulitis of extremity: lower extremity Laterality: left Qualified Codes: L03.116 - Cellulitis of left lower limb Condition: Serious ANDRIA PELAEZ MD Jul 04, 2018 14:56
--- NOTE | 2018-07-04 18:07 | HP ---
Date/Time of Note Date/Time of Note DATE: 07/04/18 TIME: 18:03 Assessment/Plan VTE Prophylaxis Pharmacological prophylaxis: NA/contraindicated Pharm contraindication: liver dx Lines/Catheters IV [facility] Saline Lock Assessment/Plan Hospital Course 1. Sepsis secondary to left lower extremity cellulitis Lactic acidosis secondary to sepsis and/or decreased clearance from liver disease IV antibiotics with cefepime 2. History of alcohol cirrhosis with persistent ascites Status post paracentesis in the ER Continue home meds Patient is on the transplant list 3. History of C. difficile No acute issues 4. Hyperkalemia IV fluids Monitor Prophylaxis: No SCDs secondary to cellulitis, no anticoagulation secondary liver disease Result Diagram: 07/04/18 1212 07/04/18 1212 Results 24hrs Laboratory Tests Test 07/04/18 12:08 07/04/18 12:12 07/04/18 14:37 07/04/18 16:40 POC Venous Lactate 2.7 *H 3.1 *H White Blood Count 7.7 Red Blood Count 2.61 L Hemoglobin 9.2 L Hematocrit 27.6 L Mean Corpuscular 105.7 H Volume Mean Corpuscular 35.2 H Hemoglobin Mean Corpuscular 33.3 Hemoglobin Concent Red Cell 15.9 H Distribution Width Platelet Count 78 L Mean Platelet 9.7 Volume Immature 4.300 H Granulocytes % Neutrophils % Segmented 76 Neutrophils % (Manual) Band Neutrophils % 5 H (Manual) Lymphocytes % Lymphocytes % 7 L (Manual) Monocytes % Monocytes % 11 (Manual) Eosinophils % Basophils % Promyelocytes % 1 H (Manual) Nucleated Red 0.0 Blood Cells % Immature 0.330 H Granulocytes # Neutrophils # Neutrophils # 5.9 (Manual) Band Neutrophils # 0.3 Lymphocytes 0.5 L (Manual) Lymphocytes # Monocytes # Monocytes # 0.8 (Manual) Eosinophils # Basophils # Promyelocytes # 0.0 Nucleated Red Blood Cells # Platelet Estimate SIG DECREASED Polychromasia 3+ Poikilocytosis 2+ Anisocytosis 1+ Macrocytosis 1+ Prothrombin Time 28.2 H Prothrombin Time 2.2 Ratio INR International 2.64 Normalized Ratio Activated 37.[address] Time Sodium Level 127 L Potassium Level 5.6 H Chloride Level 95 L Carbon Dioxide 20 L Level Anion Gap 12 Blood Urea 23 H Nitrogen Creatinine 0.92 Est Glomerular > 60 Filtrat Rate mL/min Glucose Level 98 Lactic Acid Level 4.9 *H Calcium Level 8.4 Total Bilirubin 11.1 H Direct Bilirubin 4.70 H Indirect Bilirubin 6.4 H Aspartate Amino 58 H Transf (AST/SGOT) Alanine 43 Aminotransferase ( ALT/SGPT) Alkaline 104 Phosphatase Troponin I < 0.012 Total Protein 6.7 Albumin 2.5 L Globulin 4.20 H Albumin/Globulin 0.59 Ratio Urine Color KALEB Urine Clarity CLEAR Urine pH 5.0 Urine Specific 1.016 Elizabeth Urine Ketones NEGATIVE Urine Nitrite NEGATIVE Urine Bilirubin 1+ H Urine Urobilinogen 2+ H Urine Leukocyte NEGATIVE Esterase Urine Hemoglobin NEGATIVE Urine Glucose NEGATIVE Urine Total NEGATIVE Protein HPI/ROS Admit Date/Time Admit Date/Time Patient is a 48-year-old female with a history of alcohol cirrhosis status post multiple paracenteses on the transplant list, C. difficile, hypertension, IBS. Patient presents with 4 days of worsening left lower extremity redness and swelling. Patient also reports abdominal distention and did receive a paracentesis in the ER. Patient has no other complaints at this time. ROS Constitutional: no complaints, improved Eyes: no complaints ENT: no complaints Respiratory: no complaints Cardiovascular: no complaints Gastrointestinal: pain Genitourinary: no complaints Musculoskeletal: no complaints Skin: erythema Neurologic: no complaints Endocrine: no complaints Lymphatic: no complaints Psychological: no complaints, nl mood/affect Immunologic: no complaints PMH/Family/Social Past Medical History As per HPI Medications Current Medications Ondansetron HCl (Zofran Inj) 4 mg BRIDGE ORDER PRN IV NAUSEA/VOMITING; Start 07/04/18 at 14:30; Stop 07/05/18 at 14:29 Acetaminophen (Tylenol Tab) 650 mg ER BRIDGE PRN PO .MILD PAIN 1-3 OR TEMP; Start 07/04/18 at 14:30; Stop 07/05/18 at 14:29 Coded Allergies: No Known Allergy (Unverified , 07/04/18) Past Surgical History Past Surgical Hx: cholecystectomy, endoscopy, other Family History Significant Family History: no pertinent family hx Social History Alcohol Use: sober Smoking Status: Former smoker Drug Use: none Exam/Review of Systems Vital Signs Vitals Vital Signs Date Temp Pulse Resp B/P (MAP) Pulse Ox O2 O2 Flow FiO2 Time Delivery Rate 07/04/18 131 18 96/48 (64) 98 Room Air 17:51 07/04/18 98.7 15:40 Exam Constitutional: alert, oriented Respiratory: clear to auscultation Cardiovascular: regular rate and rhythm Gastrointestinal: soft Musculoskeletal: No nl extremities to inspection Extremities: edema Skin: rash or lesions ANA SPICER Jul 04, 2018 18:07
[2018-07-04] MEDS ORDERED: NACL 0.9% 3 ML SYG IV SCH (18:30)
[2018-07-04] MEDS ORDERED: ALBUTEROL 0.083% (NEB) 2.5 MG/3 ML AMP HHN PRN (18:30)
[2018-07-04] MEDS: morphine 4 MG/ML VIAL IV PRN (19:24)
[2018-07-04 19:52] VITALS: PULSE 124
[2018-07-04 19:55] VITALS: BP 104/55; PULSE 123; RESP 16
[2018-07-04 20:00] VITALS: PULSE 125
[2018-07-04] MEDS ORDERED: CEFEPIME 2GM/50 ML (PMX) 50 ML IVPB SCH (21:00)
[2018-07-04 23:03] VITALS: BP 91/50; PULSE 125; RESP 18
[2018-07-05] VITALS (12 sets, daily range): BP systolic 81–109; BP diastolic 43–65; PULSE 66–128; RESP 18
[2018-07-05] MEDS: MIDODRINE 5 MG TAB PO SCH ×4 (00:30→20:12)
[2018-07-05] MEDS: CEFEPIME 2GM/50 ML (PMX) 50 ML IVPB SCH ×3 (01:42→21:42)
[2018-07-05] MEDS ORDERED: ALBUMIN HUMAN 25% 250 ML IV ONE (02:00)
[2018-07-05] MEDS ORDERED: ALBUMIN HUMAN 25% 100 ML INJ IV SCH (03:50)
[2018-07-05] MEDS ORDERED: KETOROLAC 30 MG INJ IV STA (04:18)
[2018-07-05] MEDS ORDERED: PANTOPRAZOLE (EC) 40 MG TAB PO SCH (06:00)
[2018-07-05] MEDS: METOCLOPRAMIDE 10 MG INJ IV PRN ×2 (10:16→19:21)
[2018-07-05] MEDS: HYDROCODONE/APAP (5/325) TAB PO PRN ×2 (12:21→19:21)
[2018-07-05] MEDS: KETOROLAC 15 MG INJ IV PRN (15:50)
--- NOTE | 2018-07-05 16:52 | PN ---
Date/Time of Note Date/Time of Note DATE: 07/05/18 TIME: 16:51 Assessment/Plan VTE Prophylaxis Risk score (from Nsg)>0 risk: 6 Pharmacological prophylaxis: NA/contraindicated Pharm contraindication: liver dx Lines/Catheters IV Catheter Type (from Nrsg): Saline Lock Assessment/Plan Hospital Course 1. Sepsis secondary to left lower extremity cellulitis-improving Lactic acidosis secondary to sepsis and/or decreased clearance from liver disease Continue IV antibiotics with cefepime 2. History of alcohol cirrhosis with persistent ascites Status post paracentesis in the ER Continue home meds Patient is on the transplant list 3. History of C. difficile No acute issues 4. Hyperkalemia IV fluids Monitor Prophylaxis: No SCDs secondary to cellulitis, no anticoagulation secondary liver disease Result Diagram: 07/05/18 0702 07/05/18 0701 Results 24hrs Laboratory Tests Test 07/05/18 07:01 07/05/18 07:02 Sodium Level 129 L Potassium Level 5.0 Chloride Level 93 L Carbon Dioxide Level 22 Anion Gap 14 H Blood Urea Nitrogen 20 Creatinine 0.89 Est Glomerular Filtrat Rate mL/min > 60 Glucose Level 76 Calcium Level 7.8 L Phosphorus Level 4.9 Magnesium Level 1.8 White Blood Count 9.3 # Red Blood Count 2.17 L Hemoglobin 7.3 #L Hematocrit 22.7 L Mean Corpuscular Volume 104.6 H Mean Corpuscular Hemoglobin 33.6 H Mean Corpuscular Hemoglobin Concent 32.2 Red Cell Distribution Width 16.0 H Platelet Count 61 #L Mean Platelet Volume 9.5 Immature Granulocytes % 2.300 H Neutrophils % Segmented Neutrophils % (Manual) 69 Band Neutrophils % (Manual) 12 H Lymphocytes % Lymphocytes % (Manual) 7 L Monocytes % Monocytes % (Manual) 11 Eosinophils % Basophils % Myelocytes % (Manual) 1 H Nucleated Red Blood Cells % 0.0 Immature Granulocytes # 0.210 H Neutrophils # Neutrophils # (Manual) 6.5 Band Neutrophils # 1.1 H Lymphocytes (Manual) 0.6 L Lymphocytes # Monocytes # Monocytes # (Manual) 1.0 H Eosinophils # Basophils # Myelocytes # 0.0 Nucleated Red Blood Cells # Platelet Estimate DECREASED Polychromasia 3+ Anisocytosis 1+ Macrocytosis 1+ Ovalocytes 1+ Subjective 24 Hr Interval Summary Musculoskeletal: bone/joint pain Exam/Review of Systems Exam Vitals Vital Signs Date Temp Pulse Resp B/P (MAP) Pulse Ox O2 O2 Flow FiO2 Time Delivery Rate 07/05/18 95 16:17 07/05/18 98.5 18 81/43 (56) 98 Room Air 15:28 Intake and Output 07/04/18 07/04/18 07/05/18 1515:00 23:00 07:00 IntakeIntake Total 150 ml BalanceBalance 150 ml Constitutional: alert, oriented Respiratory: clear to auscultation Cardiovascular: regular rate and rhythm Gastrointestinal: soft; No distended Musculoskeletal: No nl extremities to inspection Results Results 24hrs Laboratory Tests Test 07/05/18 07:01 07/05/18 07:02 Sodium Level 129 L Potassium Level 5.0 Chloride Level 93 L Carbon Dioxide Level 22 Anion Gap 14 H Blood Urea Nitrogen 20 Creatinine 0.89 Est Glomerular Filtrat Rate mL/min > 60 Glucose Level 76 Calcium Level 7.8 L Phosphorus Level 4.9 Magnesium Level 1.8 White Blood Count 9.3 # Red Blood Count 2.17 L Hemoglobin 7.3 #L Hematocrit 22.7 L Mean Corpuscular Volume 104.6 H Mean Corpuscular Hemoglobin 33.6 H Mean Corpuscular Hemoglobin Concent 32.2 Red Cell Distribution Width 16.0 H Platelet Count 61 #L Mean Platelet Volume 9.5 Immature Granulocytes % 2.300 H Neutrophils % Segmented Neutrophils % (Manual) 69 Band Neutrophils % (Manual) 12 H Lymphocytes % Lymphocytes % (Manual) 7 L Monocytes % Monocytes % (Manual) 11 Eosinophils % Basophils % Myelocytes % (Manual) 1 H Nucleated Red Blood Cells % 0.0 Immature Granulocytes # 0.210 H Neutrophils # Neutrophils # (Manual) 6.5 Band Neutrophils # 1.1 H Lymphocytes (Manual) 0.6 L Lymphocytes # Monocytes # Monocytes # (Manual) 1.0 H Eosinophils # Basophils # Myelocytes # 0.0 Nucleated Red Blood Cells # Platelet Estimate DECREASED Polychromasia 3+ Anisocytosis 1+ Macrocytosis 1+ Ovalocytes 1+ Medications Medication Current Medications IV Flush (NS 3 ml) 3 ml PER PROTOCOL IV ; Start 07/04/18 at 18:30 Ondansetron HCl (Zofran Inj) 4 mg Q6H PRN IV NAUSEA/VOMITING; Start 07/04/18 at 18:30 Morphine Sulfate (morphine) 2 mg Q4H PRN IV .SEVERE PAIN 7-10 Last administered on 07/04/18 19:24; Admin Dose 2 MG; Start 07/04/18 at 18:30 Docusate Sodium (Colace) 100 mg Q12H PRN PO .CONSTIPATION; Start 07/04/18 at 18:30 Zolpidem Tartrate (Ambien) 5 mg QHS PRN PO .INSOMNIA; Start 07/04/18 at 18:30 Midodrine (Proamatine) 5 mg TID PO Last administered on 07/05/18at 12:21; Admin Dose 5 MG; Start 07/04/18 at 21:00 Pantoprazole (Protonix Tab) 40 mg DAILY@06 PO Last administered on 07/05/18 05:43; Admin Dose 40 MG; Start 07/05/18 at 06:00 Albuterol (Proventil 0.083% (Neb)) 2.5 mg Q4H RESP THERAPY PRN HHN SHORTNESS OF BREATH; Start 07/04/18 at 18:30 Cefepime HCl 50 ml @ 100 mls/hr Q12 IVPB Last administered on 07/05/18at 08:46; Admin Dose 100 MLS/HR; Start 07/05/18 at 01:00 Metoclopramide HCl (Reglan) 5 mg Q6H PRN IV NAUSEA Last administered on 07/05/18 10:16; Admin Dose 5 MG; Start 07/05/18 at 10:00 Acetaminophen/ Hydrocodone Bitart ([place] (5/325)) 1 tab Q4H PRN PO MODERATE PAIN LEVEL 4-6 Last administered on 07/05/18at 12:21; Admin Dose 1 TAB; Start 07/05/18 at 12:30 Ketorolac Tromethamine (Toradol) 15 mg Q6H PRN IV PAIN Last administered on 07/05/18at 15:50; Admin Dose 15 MG; Start 07/05/18 at 15:30; Stop 07/08/18 at 15:29 ANA SPICER Jul 05, 2018 16:52
[2018-07-06] VITALS (67 sets, daily range): BP systolic 75–124; BP diastolic 41–95; PULSE 82–160; RESP 11–31
[2018-07-06] MEDS ORDERED: SOD CHLORIDE 0.9% 250 ML IV ONE (01:00)
[2018-07-06] MEDS ORDERED: MIDODRINE 5 MG TAB PO ONE (02:00)
[2018-07-06] MEDS ORDERED: ALBUMIN HUMAN 25% 100 ML IV ONE (02:00)
[2018-07-06] MEDS ORDERED: MIDODRINE 5 MG TAB ONE (02:01)
[2018-07-06] MEDS ORDERED: ALBUMIN HUMAN 25% 100 ML ONE (02:01)
[2018-07-06] MEDS ORDERED: HYDROCODONE/APAP (5/325) TAB PO PRN (04:00)
[2018-07-06] MEDS: ONDANSETRON 4 MG INJ IV PRN (04:47)
[2018-07-06] MEDS: KETOROLAC 15 MG INJ IV PRN ×3 (04:48→21:38)
[2018-07-06] MEDS: PANTOPRAZOLE (EC) 40 MG TAB PO SCH ×2 (05:59→17:22)
[2018-07-06] MEDS: POTASSIUM CHLORIDE (SR) 20 MEQ TAB PO SCH ×2 (08:12→21:31)
[2018-07-06] MEDS: CEFEPIME 2GM/50 ML (PMX) 50 ML IVPB SCH (08:12)
[2018-07-06] MEDS: HYDROCODONE/APAP (5/325) TAB PO PRN (08:12)
[2018-07-06] MEDS: MIDODRINE 5 MG TAB PO SCH ×3 (08:12→21:31)
[2018-07-06] MEDS ORDERED: SPIRONOLACTONE 50 MG TAB PO SCH (09:00)
[2018-07-06] MEDS ORDERED: NORepinephrine 8MG/250 ML (PMX 250 ML IV SCH (10:28)
[2018-07-06] MEDS: morphine 4 MG/ML VIAL IV PRN (15:54)
[2018-07-06] MEDS: traMADol 50 MG TAB PO PRN (16:00)
--- NOTE | 2018-07-06 16:05 | PN ---
Date/Time of Note Date/Time of Note DATE: 07/06/18 TIME: 16:02 Assessment/Plan VTE Prophylaxis Risk score (from Nsg)>0 risk: 6 Pharmacological prophylaxis: NA/contraindicated Pharm contraindication: liver dx Lines/Catheters IV Catheter Type (from Nrsg): Peripheral IV Assessment/Plan Hospital Course 1. Sepsis secondary to left lower extremity cellulitis-improving Lactic acidosis secondary to sepsis and/or decreased clearance from liver disease Blood cultures show Klebsiella pneumonia Continue IV antibiotics, de-escalate to Rocephin based on cultures and sensitivities 2. History of alcohol cirrhosis with persistent ascites Status post paracentesis in the ER Continue home meds Patient is on the transplant list 3. History of C. difficile No acute issues 4. Hyperkalemia IV fluids Monitor Prophylaxis: No SCDs secondary to cellulitis, no anticoagulation secondary liver disease Result Diagram: 07/06/18 0510 07/06/18 0510 Results 24hrs Laboratory Tests Test 07/06/18 05:10 White Blood Count 9.6 Red Blood Count 2.07 L Hemoglobin 7.2 L Hematocrit 22.2 L Mean Corpuscular Volume 107.2 H Mean Corpuscular Hemoglobin 34.8 H Mean Corpuscular Hemoglobin Concent 32.4 Red Cell Distribution Width 16.0 H Platelet Count 56 L Mean Platelet Volume 9.4 Immature Granulocytes % 2.400 H Neutrophils % Segmented Neutrophils % (Manual) 73 Band Neutrophils % (Manual) 12 H Lymphocytes % Lymphocytes % (Manual) 8 L Monocytes % Monocytes % (Manual) 3 Eosinophils % Eosinophils % (Manual) 1 Basophils % Metamyelocytes % (manual) 2 H Myelocytes % (Manual) 1 H Nucleated Red Blood Cells % 0.0 Immature Granulocytes # 0.230 H Neutrophils # Neutrophils # (Manual) 7.1 Band Neutrophils # 1.1 H Lymphocytes (Manual) 0.7 L Lymphocytes # Monocytes # Monocytes # (Manual) 0.2 L Eosinophils # Basophils # Metamyelocytes # 0.1 H Myelocytes # 0.0 Nucleated Red Blood Cells # Platelet Estimate DECREASED Polychromasia 3+ Poikilocytosis 2+ Anisocytosis 1+ Ovalocytes 1+ Acanthocytes 1+ Sodium Level 130 L Potassium Level 4.7 Chloride Level 96 L Carbon Dioxide Level 22 Anion Gap 12 Blood Urea Nitrogen 30 H Creatinine 1.37 H Est Glomerular Filtrat Rate mL/min 41 L Glucose Level 112 Calcium Level 7.9 L Subjective 24 Hr Interval Summary Musculoskeletal: bone/joint pain Exam/Review of Systems Exam Vitals Vital Signs Date Temp Pulse Resp B/P (MAP) Pulse Ox O2 O2 Flow FiO2 Time Delivery Rate 07/06/18 97.6 88 13 89/50 (63) 95 Room Air 12:00 Intake and Output 07/05/18 07/05/18 07/06/18 1515:00 23:00 07:00 IntakeIntake Total 50 ml 200 ml OutputOutput Total 110 ml BalanceBalance 50 ml 90 ml Constitutional: alert, oriented Respiratory: clear to auscultation Cardiovascular: regular rate and rhythm Gastrointestinal: soft, distended Musculoskeletal: No nl extremities to inspection Results Results 24hrs Laboratory Tests Test 07/06/18 05:10 White Blood Count 9.6 Red Blood Count 2.07 L Hemoglobin 7.2 L Hematocrit 22.2 L Mean Corpuscular Volume 107.2 H Mean Corpuscular Hemoglobin 34.8 H Mean Corpuscular Hemoglobin Concent 32.4 Red Cell Distribution Width 16.0 H Platelet Count 56 L Mean Platelet Volume 9.4 Immature Granulocytes % 2.400 H Neutrophils % Segmented Neutrophils % (Manual) 73 Band Neutrophils % (Manual) 12 H Lymphocytes % Lymphocytes % (Manual) 8 L Monocytes % Monocytes % (Manual) 3 Eosinophils % Eosinophils % (Manual) 1 Basophils % Metamyelocytes % (manual) 2 H Myelocytes % (Manual) 1 H Nucleated Red Blood Cells % 0.0 Immature Granulocytes # 0.230 H Neutrophils # Neutrophils # (Manual) 7.1 Band Neutrophils # 1.1 H Lymphocytes (Manual) 0.7 L Lymphocytes # Monocytes # Monocytes # (Manual) 0.2 L Eosinophils # Basophils # Metamyelocytes # 0.1 H Myelocytes # 0.0 Nucleated Red Blood Cells # Platelet Estimate DECREASED Polychromasia 3+ Poikilocytosis 2+ Anisocytosis 1+ Ovalocytes 1+ Acanthocytes 1+ Sodium Level 130 L Potassium Level 4.7 Chloride Level 96 L Carbon Dioxide Level 22 Anion Gap 12 Blood Urea Nitrogen 30 H Creatinine 1.37 H Est Glomerular Filtrat Rate mL/min 41 L Glucose Level 112 Calcium Level 7.9 L Medications Medication Current Medications IV Flush (NS 3 ml) 3 ml PER PROTOCOL IV ; Start 07/04/18 at 18:30 Ondansetron HCl (Zofran Inj) 4 mg Q6H PRN IV NAUSEA/VOMITING Last administered on 07/06/18 04:47; Admin Dose 4 MG; Start 07/04/18 at 18:30 Morphine Sulfate (morphine) 2 mg Q4H PRN IV .SEVERE PAIN 7-10 Last administered on 07/06/18at 15:54; Admin Dose 2 MG; Start 07/04/18 at 18:30 Docusate Sodium (Colace) 100 mg Q12H PRN PO .CONSTIPATION; Start 07/04/18 at 18:30 Zolpidem Tartrate (Ambien) 5 mg QHS PRN PO .INSOMNIA; Start 07/04/18 at 18:30 Albuterol (Proventil 0.083% (Neb)) 2.5 mg Q4H RESP THERAPY PRN HHN SHORTNESS OF BREATH; Start 07/04/18 at 18:30 Metoclopramide HCl (Reglan) 5 mg Q6H PRN IV NAUSEA Last administered on 07/05/18at 19:21; Admin Dose 5 MG; Start 07/05/18 at 10:00 Acetaminophen/ Hydrocodone Bitart ([place] (5/325)) 1 tab Q4H PRN PO MODERATE PAIN LEVEL 4-6 Last administered on 07/06/18 08:12; Admin Dose 1 TAB; Start 07/05/18 at 12:30 Ketorolac Tromethamine (Toradol) 15 mg Q6H PRN IV PAIN Last administered on 07/06/18at 13:15; Admin Dose 15 MG; Start 07/05/18 at 15:30; Stop 07/08/18 at 15:29 Midodrine (Proamatine) 10 mg TID PO Last administered on 07/06/18at 12:29; Admin Dose 10 MG; Start 07/06/18 at 09:00 Albuterol (Ventolin Hfa) 2 puff Q4 INH ; Start 07/06/18 at 04:30 Acetaminophen/ Hydrocodone Bitart ([place] (5/325)) 1 tab Q6H PRN PO PAIN; Start 07/06/18 at 04:00 Ondansetron HCl (Zofran Odt) 4 mg Q6H PRN ODT NAUSEA AND/OR VOMITING; Start 07/06/18 at 04:00 Potassium Chloride (Klor-Con 20) 20 meq BID PO Last administered on 07/06/18at 08:12; Admin Dose 20 MEQ; Start 07/06/18 at 09:00 Pantoprazole (Protonix Tab) 40 mg BID@0600,1800 PO Last administered on 07/06/18at 05:59; Admin Dose 40 MG; Start 07/06/18 at 06:00 Norepinephrine 250 ml @ 1.875 mls/ hr TITRATE IV ; Start 07/06/18 at 10:28 Tramadol HCl (Ultram) 100 mg Q4H PRN PO SEVERE PAIN LEVEL 7-10 Last administered on 07/06/18at 16:00; Admin Dose 100 MG; Start 07/06/18 at 11:00 Cefepime HCl 50 ml @ 100 mls/hr Q24H IVPB ; Start 07/07/18 at 09:00 ANA SPICER Jul 06, 2018 16:05
[2018-07-06] MEDS: CEFTRIAXONE 1 GM/50 ML (PMX) 50 ML IVPB SCH (17:22)
[2018-07-06] MEDS: ALBUTEROL HFA 8 GM INHALER INH SCH ×3 (21:17→22:13)
[2018-07-06] MEDS: METOCLOPRAMIDE 10 MG INJ IV PRN (21:38)
[2018-07-07] VITALS (12 sets, daily range): BP systolic 84–91; BP diastolic 44–91; PULSE 91–98; RESP 19–20
[2018-07-07] MEDS: ALBUTEROL HFA 8 GM INHALER INH SCH ×6 (01:00→20:35)
[2018-07-07] MEDS: PANTOPRAZOLE (EC) 40 MG TAB PO SCH ×2 (06:16→17:46)
[2018-07-07] MEDS: POTASSIUM CHLORIDE (SR) 20 MEQ TAB PO SCH (08:15)
[2018-07-07] MEDS: MIDODRINE 5 MG TAB PO SCH ×3 (08:15→20:33)
[2018-07-07] MEDS: KETOROLAC 15 MG INJ IV PRN ×2 (08:17→13:47)
[2018-07-07] MEDS ORDERED: CEFEPIME 2GM/50 ML (PMX) 50 ML IVPB SCH (09:00)
--- NOTE | 2018-07-07 14:21 | PN ---
Date/Time of Note Date/Time of Note DATE: 07/07/18 TIME: 14:16 Assessment/Plan VTE Prophylaxis Risk score (from Nsg)>0 risk: 3 Pharmacological prophylaxis: NA/contraindicated Pharm contraindication: liver dx Lines/Catheters IV Catheter Type (from Nrsg): Saline Lock Assessment/Plan Hospital Course 1. Sepsis secondary to left lower extremity cellulitis-improving Lactic acidosis secondary to sepsis and/or decreased clearance from liver disease Blood cultures show Klebsiella pneumonia Continue IV antibiotics, have de-escalated to Rocephin based on cultures and sensitivities ID consultation obtained 2. History of alcohol cirrhosis with persistent ascites Status post paracentesis in the ER Continue home meds Patient is on the transplant list 3. History of C. difficile No reports of diarrhea C. difficile is positive, unclear if this is from previous episode or is a new acute infection Start vancomycin p.o. ID consultation obtained 4. Oliguric acute kidney injury Rule out Hepatorenal Nephrology consultation obtained Monitor renal function 5. Hyperkalemia-resolved IV fluids Monitor Prophylaxis: No SCDs secondary to cellulitis, no anticoagulation secondary liver disease Result Diagram: 07/06/18 0510 07/06/18 0510 Subjective 24 Hr Interval Summary Musculoskeletal: bone/joint pain Exam/Review of Systems Exam Vitals Vital Signs Date Temp Pulse Resp B/P (MAP) Pulse Ox O2 O2 Flow FiO2 Time Delivery Rate 07/07/18 97 12:19 07/07/18 97.7 20 90/48 (62) 97 Room Air 11:11 Intake and Output 07/06/18 07/06/18 07/07/18 1515:00 23:00 07:00 IntakeIntake Total 300 ml 50 ml 150 ml OutputOutput Total 155 ml 25 ml 350 ml BalanceBalance 145 ml 25 ml -200 ml Constitutional: alert, oriented Respiratory: clear to auscultation Cardiovascular: regular rate and rhythm Gastrointestinal: soft; No distended Musculoskeletal: No nl extremities to inspection Medications Medication Current Medications IV Flush (NS 3 ml) 3 ml PER PROTOCOL IV ; Start 07/04/18 at 18:30 Ondansetron HCl (Zofran Inj) 4 mg Q6H PRN IV NAUSEA/VOMITING Last administered on 07/06/18at 04:47; Admin Dose 4 MG; Start 07/04/18 at 18:30 Docusate Sodium (Colace) 100 mg Q12H PRN PO .CONSTIPATION; Start 07/04/18 at 18:30 Zolpidem Tartrate (Ambien) 5 mg QHS PRN PO .INSOMNIA; Start 07/04/18 at 18:30 Albuterol (Proventil 0.083% (Neb)) 2.5 mg Q4H RESP THERAPY PRN HHN SHORTNESS OF BREATH; Start 07/04/18 at 18:30 Metoclopramide HCl (Reglan) 5 mg Q6H PRN IV NAUSEA Last administered on 07/06/18 21:38; Admin Dose 5 MG; Start 07/05/18 at 10:00 Acetaminophen/ Hydrocodone Bitart ([place] (5/325)) 1 tab Q4H PRN PO MODERATE PAIN LEVEL 4-6 Last administered on 07/06/18 08:12; Admin Dose 1 TAB; Start 07/05/18 at 12:30 Ketorolac Tromethamine (Toradol) 15 mg Q6H PRN IV PAIN Last administered on 07/07/18 13:47; Admin Dose 15 MG; Start 07/05/18 at 15:30; Stop 07/08/18 at 15:29 Midodrine (Proamatine) 10 mg TID PO Last administered on 07/07/18 12:49; Admin Dose 10 MG; Start 07/06/18 at 09:00 Albuterol (Ventolin Hfa) 2 puff Q4 INH Last administered on 07/07/18 12:48; Admin Dose 2 PUFF; Start 07/06/18 at 04:30 Acetaminophen/ Hydrocodone Bitart ([place] (5/325)) 1 tab Q6H PRN PO PAIN Last administered on 07/07/18 11:39; Admin Dose 1 TAB; Start 07/06/18 at 04:00 Ondansetron HCl (Zofran Odt) 4 mg Q6H PRN ODT NAUSEA AND/OR VOMITING; Start 07/06/18 at 04:00 Potassium Chloride (Klor-Con 20) 20 meq BID PO Last administered on 07/07/18 08:15; Admin Dose 20 MEQ; Start 07/06/18 at 09:00 Pantoprazole (Protonix Tab) 40 mg BID@0600,1800 PO Last administered on 07/07/18 06:16; Admin Dose 40 MG; Start 07/06/18 at 06:00 Norepinephrine 250 ml @ 1.875 mls/ hr TITRATE IV ; Start 07/06/18 at 10:28 Tramadol HCl (Ultram) 100 mg Q4H PRN PO SEVERE PAIN LEVEL 7-10 Last administered on 07/06/18at 16:00; Admin Dose 100 MG; Start 07/06/18 at 11:00 Ceftriaxone Sodium 50 ml @ 100 mls/hr Q24H IVPB Last administered on 07/06/18at 17:22; Admin Dose 100 MLS/HR; Start 07/06/18 at 16:30 Morphine Sulfate (morphine) 6 mg Q4H PRN PO SEVERE PAIN LEVEL 7-10; Start 07/06/18 at 22:00 Vancomycin HCl (Vancomycin Oral Syringe) 125 mg Q6 PO ; Start 07/07/18 at 18:00; Status ANA SIM Jul 07, 2018 14:21
--- NOTE | 2018-07-07 15:41 | CONS ---
Assessment/Plan Assessment/Plan Assessment/Plan 48 yo Female with 1) PATTIE in the setting of Sepsis and hemodynamic changes, ?HRS, More Likely Pre- renal azotemia and Intravascular Volume Depletion, R/o ATN 2) Hyponatremia in Chronic Liver disease, S/p Paracentesis 3) Hyperkalemia Resolved 4) CDiff Diarrhea 5) Lower extremity Cellulitis 6) Abdominal Pain At this time would recommend holding Toradol Rx Check Urine Na and Urine Cr Level Will order Albumin Infusion IV q8HR x 3 doses Pt is already on Midodrine due to hypotension...cont at this time. Pt is already on Transplant list at [facility] No acute indication for HD at this time Will cont to closely follow along with you Do not hesitate to contact me if you have any questions or concerns. Consultation Date/Type/Reason Date of Consultation: Jul 07, 2018 Type of Consult Nephrology Reason for Consultation PATTIE Requesting Provider: ANA SPICER Date/Time of Note DATE: 07/07/18 TIME: 15:27 Hx of Present Illness 48 yo female with no hx of PATTIE or CKD in past, Hx of Liver Disease Chronic on Transplant list at [facility], Hx of IBS and Recurrent Ascites, S/p Paracentesis during this admission who presented with lower extremity swelling and redness. Pt admitted for treatment and evaluation. Pt is not on Vancomycin IV, However recently started on PO for Cdiff postive diarrhea. Pt has had nausea and vomiting as well as diarrhea. She cont to complain of abdominal pain, although patient is on polypharmacy, Also received Ketoralac Rx in hospital. Pt was found to have worsening BUN, CR and borderline hypotension in the hospital. Nephrology consulted for PATTIE. Pt is making urine, has johnson catheter presented, concentrated urine outpt. No recent hx of dysuria or hematuria. Constitutional: No febrile, No requiring O2 Respiratory: No cough, No shortness of breath Cardiovascular: No chest pain Gastrointestinal: pain Musculoskeletal: swelling Skin: erythema Neurologic: confusion Past Medical History Medical History Nephrology: other (Liver disease, Anemia) Home Meds Active Scripts Hydrocodone/Acetaminophen ([place] 5-325 Tablet) 1 Each Tablet, 1 TAB PO Q6H PRN for PAIN, #7 TAB Prov:RADHA MORALES MD 06/28/18 Ondansetron (Ondansetron Odt) 4 Mg Tab.rapdis, 4 MG PO Q6H PRN for NAUSEA AND/OR VOMITING, #10 TAB Prov:ALEXANDRIA QUIROGA MD 06/14/18 Reported Medications Lactulose (Constulose) 10 Gm/15 Ml Solution, 10 GM PO NEEDED 06/28/18 Albuterol Sulfate* (Ventolin HFA*) 18 Gm Hfa.aer.ad, 2 PUFF INHALATION Q4H, #1 INHALER 06/28/18 Midodrine* (Midodrine*) 5 Mg Tablet, 5 MG PO TID, TAB 06/28/18 Spironolactone* (Aldactone*) 100 Mg Tablet, 100 MG PO BID, #60 TAB 05/15/18 Omeprazole* (Omeprazole*) 20 Mg Capsule.dr, 20 MG PO BID, #60 CAP 05/15/18 Potassium Chloride* (K-Dur*) 20 Meq Tab.prt.sr, 20 MEQ PO BID, TAB.SA 05/15/18 Discontinued Reported Medications Spironolactone* (Aldactone*) 50 Mg Tablet, 50 MG PO DAILY, #30 TAB 05/15/18 Discontinued Scripts Metoclopramide* (Reglan*) 10 Mg Tablet, 10 MG PO Q6 PRN for NAUSEA AND/OR VOMITING, #10 TAB Prov:RADHA MORALES MD 06/28/18 Metoclopramide* (Reglan*) 5 Mg Tablet, 5 MG PO DAILY PRN for NAUSEA AND/OR VOMITING for 30 Days, TAB Prov:RADHA MORALES MD 05/20/18 Medications Current Medications IV Flush (NS 3 ml) 3 ml PER PROTOCOL IV ; Start 07/04/18 at 18:30 Ondansetron HCl (Zofran Inj) 4 mg Q6H PRN IV NAUSEA/VOMITING Last administered on 07/06/18at 04:47; Admin Dose 4 MG; Start 07/04/18 at 18:30 Docusate Sodium (Colace) 100 mg Q12H PRN PO .CONSTIPATION; Start 07/04/18 at 18:30 Zolpidem Tartrate (Ambien) 5 mg QHS PRN PO .INSOMNIA; Start 07/04/18 at 18:30 Albuterol (Proventil 0.083% (Neb)) 2.5 mg Q4H RESP THERAPY PRN HHN SHORTNESS OF BREATH; Start 07/04/18 at 18:30 Metoclopramide HCl (Reglan) 5 mg Q6H PRN IV NAUSEA Last administered on 07/06/18 21:38; Admin Dose 5 MG; Start 07/05/18 at 10:00 Acetaminophen/ Hydrocodone Bitart ([place] (5/325)) 1 tab Q4H PRN PO MODERATE PAIN LEVEL 4-6 Last administered on 07/06/18 08:12; Admin Dose 1 TAB; Start 07/05/18 at 12:30 Midodrine (Proamatine) 10 mg TID PO Last administered on 07/07/18 12:49; Admin Dose 10 MG; Start 07/06/18 at 09:00 Albuterol (Ventolin Hfa) 2 puff Q4 INH Last administered on 07/07/18 12:48; Admin Dose 2 PUFF; Start 07/06/18 at 04:30 Acetaminophen/ Hydrocodone Bitart ([place] (5/325)) 1 tab Q6H PRN PO PAIN Last administered on 07/07/18 11:39; Admin Dose 1 TAB; Start 07/06/18 at 04:00 Ondansetron HCl (Zofran Odt) 4 mg Q6H PRN ODT NAUSEA AND/OR VOMITING; Start 07/06/18 at 04:00 Potassium Chloride (Klor-Con 20) 20 meq BID PO Last administered on 07/07/18 08:15; Admin Dose 20 MEQ; Start 07/06/18 at 09:00 Pantoprazole (Protonix Tab) 40 mg BID@0600,1800 PO Last administered on 07/07/18 06:16; Admin Dose 40 MG; Start 07/06/18 at 06:00 Norepinephrine 250 ml @ 1.875 mls/ hr TITRATE IV ; Start 07/06/18 at 10:28 Tramadol HCl (Ultram) 100 mg Q4H PRN PO SEVERE PAIN LEVEL 7-10 Last administered on 07/06/18 16:00; Admin Dose 100 MG; Start 07/06/18 at 11:00 Ceftriaxone Sodium 50 ml @ 100 mls/hr Q24H IVPB Last administered on 07/06/18 17:22; Admin Dose 100 MLS/HR; Start 07/06/18 at 16:30 Morphine Sulfate (morphine) 6 mg Q4H PRN PO SEVERE PAIN LEVEL 7-10; Start 07/06/18 at 22:00 Vancomycin HCl (Vancomycin Oral Syringe) 125 mg Q6 PO ; Start 07/07/18 at 18:00 Allergies: Coded Allergies: No Known Allergy (Unverified , 07/04/18) Past Surgical History Past Surgical Hx: cholecystectomy, endoscopy, other Family History Significant Family History: no pertinent family hx Social History Alcohol Use: sober Smoking Status: Former smoker Drug Use: none Exam/Review of Systems Vital Signs Vitals Vital Signs Date Temp Pulse Resp B/P (MAP) Pulse Ox O2 O2 Flow FiO2 Time Delivery Rate 07/07/18 98.0 91 20 84/46 (59) 96 Room Air 15:13 Intake and Output 07/06/18 07/06/18 07/07/18 1515:00 23:00 07:00 IntakeIntake Total 300 ml 50 ml 150 ml OutputOutput Total 155 ml 25 ml 350 ml BalanceBalance 145 ml 25 ml -200 ml Exam Constitutional: alert, oriented; No distress Head: normocephalic, atraumatic Eyes: EOMI, PERRL ENMT: No mucosa pink and moist Neck: No jvd Respiratory: clear to auscultation; No crackles/rales, No diminished breath sounds, No labored breathing Cardiovascular: regular rate and rhythm, edema Gastrointestinal: soft, non-tender, ascites, distended Extremities: pitting pedal edema 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: WEBBING SEAMER POUND NET II-XII intact, nl mental status, nl speech; No confused, No focal weakness, No lethargic Skin: other (Cellulitis improving); No diaphoresis Labs Result Diagram: 07/06/18 0510 07/06/18 0510 Imaging Imaging CXR IMPRESSION: No acute disease. Calcified aorta consistent with atherosclerotic disease. IMPRESSION: No sonographic evidence for deep venous thrombosis. FINDINGS: Initial images demonstrate ascites. Approximately 5 liters of serous fluid was aspirated and discarded. The patient tolerated the procedure well without complication. Medications Medications Current Medications IV Flush (NS 3 ml) 3 ml PER PROTOCOL IV ; Start 07/04/18 at 18:30 Ondansetron HCl (Zofran Inj) 4 mg Q6H PRN IV NAUSEA/VOMITING Last administered on 07/06/18at 04:47; Admin Dose 4 MG; Start 07/04/18 at 18:30 Docusate Sodium (Colace) 100 mg Q12H PRN PO .CONSTIPATION; Start 07/04/18 at 18:30 Zolpidem Tartrate (Ambien) 5 mg QHS PRN PO .INSOMNIA; Start 07/04/18 at 18:30 Albuterol (Proventil 0.083% (Neb)) 2.5 mg Q4H RESP THERAPY PRN HHN SHORTNESS OF BREATH; Start 07/04/18 at 18:30 Metoclopramide HCl (Reglan) 5 mg Q6H PRN IV NAUSEA Last administered on 07/06/18at 21:38; Admin Dose 5 MG; Start 07/05/18 at 10:00 Acetaminophen/ Hydrocodone Bitart ([place] (5/325)) 1 tab Q4H PRN PO MODERATE PAIN LEVEL 4-6 Last administered on 07/06/18at 08:12; Admin Dose 1 TAB; Start 07/05/18 at 12:30 Midodrine (Proamatine) 10 mg TID PO Last administered on 07/07/18at 12:49; Admin Dose 10 MG; Start 07/06/18 at 09:00 Albuterol (Ventolin Hfa) 2 puff Q4 INH Last administered on 07/07/18at 12:48; Admin Dose 2 PUFF; Start 07/06/18 at 04:30 Acetaminophen/ Hydrocodone Bitart ([place] (5/325)) 1 tab Q6H PRN PO PAIN Last administered on 07/07/18at 11:39; Admin Dose 1 TAB; Start 07/06/18 at 04:00 Ondansetron HCl (Zofran Odt) 4 mg Q6H PRN ODT NAUSEA AND/OR VOMITING; Start 07/06/18 at 04:00 Potassium Chloride (Klor-Con 20) 20 meq BID PO Last administered on 07/07/18at 08:15; Admin Dose 20 MEQ; Start 07/06/18 at 09:00 Pantoprazole (Protonix Tab) 40 mg BID@0600,1800 PO Last administered on 9at 06:16; Admin Dose 40 MG; Start 07/06/18 at 06:00 Norepinephrine 250 ml @ 1.875 mls/ hr TITRATE IV ; Start 07/06/18 at 10:28 Tramadol HCl (Ultram) 100 mg Q4H PRN PO SEVERE PAIN LEVEL 7-10 Last ad ministered on 07/06/18at 16:00; Admin Dose 100 MG; Start 07/06/18 at 11:00 Ceftriaxone Sodium 50 ml @ 100 mls/hr Q24H IVPB Last administered on 07/06/18at 17:22; Admin Dose 100 MLS/HR; Start 07/06/18 at 16:30 Morphine Sulfate (morphine) 6 mg Q4H PRN PO SEVERE PAIN LEVEL 7-10; Start 07/06/18 at 22:00 Vancomycin HCl (Vancomycin Oral Syringe) 125 mg Q6 PO ; Start 07/07/18 at 18:00 PARRIS THOMAS MD Jul 07, 2018 15:38
[2018-07-07] MEDS: ALBUMIN HUMAN 25% 100 ML IV SCH ×2 (16:10→22:58)
--- NOTE | 2018-07-07 16:56 | CONS ---
DATE OF ADMISSION: 07/04/2018 DATE OF CONSULTATION: 07/07/2018 TYPE OF CONSULTATION: Infectious disease. REASON FOR CONSULTATION: Antibiotic management. HISTORY OF PRESENT ILLNESS: Neli Cummings is a 48-year-old female who came to the emergency room wit h left foot swelling and distended abdomen. Her past problems include cirrhosis of the liver with as cites. She had a recent paracentesis. She also complains of edema of the legs. She cannot walk bec ause of the pain. She has redness of the left leg and swelling as well. The symptoms started 4 days prior to admission. She had no treatment as of yet. She had multiple visits to the ER for various complaints. She was at [facility]. Past problems include: 1. History of brain surgery. 2. Tonsillectomy. 3. Status post cholecystectomy. 4. Hernia surgery. 5. C-sections x2. 6. Alcoholic cirrhosis with ascites. 7. Bipolar affect. 8. PTSD. 9. OCD. FAMILY HISTORY: Noncontributory. SOCIAL HISTORY: She smokes, but she does not drink or abuse drugs. ALLERGIES: NONE TO PENICILLIN, SULFA OR FOODS. MEDICATIONS: Per chart. REVIEW OF SYSTEMS: Noncontributory. HOSPITAL COURSE: The patient seen by the hospitalist, sepsis secondary to left lower extremity cellu litis, lactic acidosis secondary to sepsis. The patient was placed on cefepime. She has a history o f Clostridium difficile. No acute issues. Her blood cultures were positive for Klebsiella pneumonia e, subspecies pneumoniae, sensitive to cefotaxime, Cipro, gentamicin, Levaquin, tobramycin and Bactri m. Urine shows no growth. Clostridium difficile is still positive. The patient was continued on ce ftriaxone, placed on oral vancomycin. She was on norepinephrine for time to maintain her blood press ure. On 07/06/2018, white count was 9.6. Her urine was negative for nitrite and leukocyte esterase. The patient was seen by Dr. Dennis for renal. Rule out ATN. She is on the transplant list at [facility] . PHYSICAL EXAMINATION: GENERAL: The patient is a well-developed, well-nourished female who is alert, responsive, in no acut e distress. VITAL SIGNS: Stable. She is afebrile. SKIN: Without generalized rash. HEENT: Within normal limits. NECK: Supple. LYMPH NODES: None palpable. CHEST: Decreased breath sounds at the bases. HEART: Without murmur or gallop. ABDOMEN: Soft, nontender. Ascites present. She is distended without organosplenomegaly or masses. EXTREMITIES: She has pitting edema. RECTAL AND GENITAL: Deferred. NEUROLOGICAL: No focal neurological abnormality. IMPRESSION AND PLAN: Cellulitis is now improving and is decreased in the left lower extremity. She has Clostridium difficile which is being treated with oral vancomycin and cefotaxime for positive blo od cultures with Klebsiella pneumoniae, subspecies pneumoniae. I will dictate my findings to the [facility] pitalist. I want to thank them for asking me to see this heidi lady in consultation. Dictated By: MONSERRAT BURGOS MD, JD/NTS Conf#: [id number] DID#: [id number] CC: ANA SPICER MD;*EndCC*
[2018-07-07] MEDS: morphine LIQ (10 MG/5 ML) CUP PO PRN ×2 (17:41→22:57)
[2018-07-07] MEDS: CEFTRIAXONE 1 GM/50 ML (PMX) 50 ML IVPB SCH (17:47)
[2018-07-07] MEDS: VANCOMYCIN HCL 250 MG/5ML POSYG PO SCH (20:34)
[2018-07-08] VITALS (13 sets, daily range): BP systolic 87–102; BP diastolic 46–52; PULSE 91–100; RESP 16–20
[2018-07-08] MEDS: ALBUTEROL HFA 8 GM INHALER INH SCH ×6 (01:00→21:00)
[2018-07-08] MEDS: VANCOMYCIN HCL 250 MG/5ML POSYG PO SCH ×5 (01:23→23:56)
[2018-07-08] MEDS: traMADol 50 MG TAB PO PRN (01:26)
[2018-07-08] MEDS: PANTOPRAZOLE (EC) 40 MG TAB PO SCH ×2 (05:30→17:27)
[2018-07-08] MEDS: morphine LIQ (10 MG/5 ML) CUP PO PRN ×3 (06:29→21:19)
[2018-07-08] MEDS: MIDODRINE 5 MG TAB PO SCH ×3 (08:10→21:08)
[2018-07-08] MEDS: ALBUMIN HUMAN 25% 100 ML IV SCH (08:11)
--- NOTE | 2018-07-08 12:07 | CONS ---
Assessment/Plan Assessment/Plan Assessment/Plan 48 yo Female with 1) PATTIE in the setting of Sepsis and hemodynamic changes, ?HRS, More Likely Pre- renal azotemia and Intravascular Volume Depletion, R/o ATN 2) Hyponatremia in Chronic Liver disease, S/p Paracentesis 3) Hyperkalemia Resolved 4) CDiff Diarrhea 5) Lower extremity Cellulitis 6) Abdominal Pain Urine Na <15, Pre Renal Picture cont albumin infusion, hold any diuretic Cont Midodrine Cr stable and improved Low K diet Kayexalate PRN For K+>5.5 Pt is already on Transplant list at [facility] No acute indication for HD at this time Will cont to closely follow along with you Do not hesitate to contact me if you have any questions or concerns. Consultation Date/Type/Reason Type of Consult Nephrology Date/Time of Note DATE: 07/08/18 TIME: 12:05 Hx of Present Illness No new complaints, Still with abdominal pain Barraza present BP improved Received Albumin infusion Constitutional: No requiring O2 Exam/Review of Systems Vital Signs Vitals Vital Signs Date Temp Pulse Resp B/P (MAP) Pulse Ox O2 O2 Flow FiO2 Time Delivery Rate 07/08/18 98/47 (64) 11:50 07/08/18 98.2 99 20 97 Room Air 11:02 Intake and Output 07/07/18 07/07/18 07/08/18 1515:00 23:00 07:00 IntakeIntake Total 300 ml 310 ml OutputOutput Total 700 ml 300 ml BalanceBalance -400 ml 10 ml Exam Constitutional: No distress Psych: anxiety Head: atraumatic Eyes: EOMI Neck: No jvd Respiratory: No labored breathing Cardiovascular: edema Genitourinary - Female: other (Barraza) Extremities: pitting pedal edema 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: [employer] II-XII intact; No lethargic Skin: No diaphoresis Labs Result Diagram: 07/06/18 0510 07/08/18 0621 Results 24hrs Laboratory Tests Test 07/07/18 20:40 07/08/18 06:21 07/08/18 08:12 07/08/18 09:21 Urine Random Creatinine 141.91 Urine Random Sodium < 13 L Sodium Level 130 L Potassium Level 5.7 H Chloride Level 103 Carbon Dioxide Level 22 Anion Gap 5 Blood Urea Nitrogen 36 H Creatinine 1.26 H Est Glomerular Filtrat 45 L Rate mL/min Glucose Level 42 *L Calcium Level 8.2 L Iron Level 46 Total Iron Binding 131 L Capacity Percent Iron Saturation 35 Bedside Glucose 49 *L 73 Medications Medications Current Medications IV Flush (NS 3 ml) 3 ml PER PROTOCOL IV ; Start 07/04/18 at 18:30 Ondansetron HCl (Zofran Inj) 4 mg Q6H PRN IV NAUSEA/VOMITING Last administered on 07/06/18at 04:47; Admin Dose 4 MG; Start 07/04/18 at 18:30 Docusate Sodium (Colace) 100 mg Q12H PRN PO .CONSTIPATION; Start 07/04/18 at 18:30 Zolpidem Tartrate (Ambien) 5 mg QHS PRN PO .INSOMNIA; Start 07/04/18 at 18:30 Albuterol (Proventil 0.083% (Neb)) 2.5 mg Q4H RESP THERAPY PRN HHN SHORTNESS OF BREATH; Start 07/04/18 at 18:30 Metoclopramide HCl (Reglan) 5 mg Q6H PRN IV NAUSEA Last administered on 07/06/18at 21:38; Admin Dose 5 MG; Start 07/05/18 at 10:00 Acetaminophen/ Hydrocodone Bitart ([place] (5/325)) 1 tab Q4H PRN PO MODERATE PAIN LEVEL 4-6 Last administered on 07/06/18at 08:12; Admin Dose 1 TAB; Start 07/05/18 at 12:30 Midodrine (Proamatine) 10 mg TID PO Last administered on 07/08/18at 08:10; Admin Dose 10 MG; Start 07/06/18 at 09:00 Albuterol (Ventolin Hfa) 2 puff Q4 INH Last administered on 07/08/18at 05:31; Admin Dose 2 PUFF; Start 07/06/18 at 04:30 Acetaminophen/ Hydrocodone Bitart ([place] (5/325)) 1 tab Q6H PRN PO PAIN Last administered on 07/07/18at 11:39; Admin Dose 1 TAB; Start 07/06/18 at 04:00 Ondansetron HCl (Zofran Odt) 4 mg Q6H PRN ODT NAUSEA AND/OR VOMITING; Start 07/06/18 at 04:00 Pantoprazole (Protonix Tab) 40 mg BID@0600,1800 PO Last administered on 07/08/18 05:30; Admin Dose 40 MG; Start 07/06/18 at 06:00 Norepinephrine 250 ml @ 1.875 mls/ hr TITRATE IV ; Start 07/06/18 at 10:28 Tramadol HCl (Ultram) 100 mg Q4H PRN PO SEVERE PAIN LEVEL 7-10 Last administered on 07/08/18 01:26; Admin Dose 100 MG; Start 07/06/18 at 11:00 Ceftriaxone Sodium 50 ml @ 100 mls/hr Q24H IVPB Last administered on 07/07/18 17:47; Admin Dose 100 MLS/HR; Start 07/06/18 at 16:30 Morphine Sulfate (morphine) 6 mg Q4H PRN PO SEVERE PAIN LEVEL 7-10 Last administered on 07/08/18 11:46; Admin Dose 6 MG; Start 07/06/18 at 22:00 Vancomycin HCl (Vancomycin Oral Syringe) 125 mg Q6 PO Last administered on 07/08/18 11:46; Admin Dose 125 MG; Start 07/07/18 at 18:00 PARRIS THOMAS MD Jul 08, 2018 12:07
[2018-07-08] MEDS ORDERED: SODIUM POLYSTYRENE 15 GM KIT (POWDER + SORBITOL) PO ONE (12:30)
--- NOTE | 2018-07-08 14:29 | PN ---
Date/Time of Note Date/Time of Note DATE: 07/08/18 TIME: 14:26 Assessment/Plan VTE Prophylaxis Risk score (from Nsg)>0 risk: 4 Pharmacological prophylaxis: NA/contraindicated Pharm contraindication: liver dx Lines/Catheters IV Catheter Type (from Nrsg): Saline Lock Assessment/Plan Hospital Course 1. Sepsis secondary to left lower extremity cellulitis-improving Lactic acidosis secondary to sepsis and/or decreased clearance from liver disease Blood cultures show Klebsiella pneumonia Continue IV antibiotics, have de-escalated to Rocephin based on cultures and sensitivities ID consultation appreciated 2. History of alcohol cirrhosis with persistent ascites Status post paracentesis in the ER Continue home meds Patient is on the transplant list 3. History of C. difficile No reports of diarrhea C. difficile is positive, unclear if this is from previous episode or is a new acute infection Start vancomycin p.o. ID consultation appreciated 4. Oliguric acute kidney injury Rule out Hepatorenal Nephrology consultation appreciated Monitor renal function Renal ultrasound is negative 5. Hyperkalemia-resolved IV fluids Monitor Prophylaxis: No SCDs secondary to cellulitis, no anticoagulation secondary liver disease Result Diagram: 07/06/18 0510 07/08/18 0621 Results 24hrs Laboratory Tests Test 07/07/18 20:40 07/08/18 06:21 07/08/18 08:12 07/08/18 09:21 Urine Random Creatinine 141.91 Urine Random Sodium < 13 L Sodium Level 130 L Potassium Level 5.7 H Chloride Level 103 Carbon Dioxide Level 22 Anion Gap 5 Blood Urea Nitrogen 36 H Creatinine 1.26 H Est Glomerular Filtrat 45 L Rate mL/min Glucose Level 42 *L Calcium Level 8.2 L Iron Level 46 Total Iron Binding 131 L Capacity Percent Iron Saturation 35 Bedside Glucose 49 *L 73 Subjective 24 Hr Interval Summary Musculoskeletal: bone/joint pain Exam/Review of Systems Exam Vitals Vital Signs Date Temp Pulse Resp B/P (MAP) Pulse Ox O2 O2 Flow FiO2 Time Delivery Rate 07/08/18 92 12:12 07/08/18 98/47 (64) 11:50 07/08/18 98.2 20 97 Room Air 11:02 Intake and Output 07/07/18 07/07/18 07/08/18 1515:00 23:00 07:00 IntakeIntake Total 300 ml 310 ml OutputOutput Total 700 ml 300 ml BalanceBalance -400 ml 10 ml Constitutional: alert, oriented Respiratory: clear to auscultation Cardiovascular: regular rate and rhythm Gastrointestinal: soft; No distended Musculoskeletal: No nl extremities to inspection Results Results 24hrs Laboratory Tests Test 07/07/18 20:40 07/08/18 06:21 07/08/18 08:12 07/08/18 09:21 Urine Random Creatinine 141.91 Urine Random Sodium < 13 L Sodium Level 130 L Potassium Level 5.7 H Chloride Level 103 Carbon Dioxide Level 22 Anion Gap 5 Blood Urea Nitrogen 36 H Creatinine 1.26 H Est Glomerular Filtrat 45 L Rate mL/min Glucose Level 42 *L Calcium Level 8.2 L Iron Level 46 Total Iron Binding 131 L Capacity Percent Iron Saturation 35 Bedside Glucose 49 *L 73 Medications Medication Current Medications IV Flush (NS 3 ml) 3 ml PER PROTOCOL IV ; Start 07/04/18 at 18:30 Ondansetron HCl (Zofran Inj) 4 mg Q6H PRN IV NAUSEA/VOMITING Last administered on 07/06/18at 04:47; Admin Dose 4 MG; Start 07/04/18 at 18:30 Docusate Sodium (Colace) 100 mg Q12H PRN PO .CONSTIPATION; Start 07/04/18 at 18:30 Zolpidem Tartrate (Ambien) 5 mg QHS PRN PO .INSOMNIA; Start 07/04/18 at 18:30 Albuterol (Proventil 0.083% (Neb)) 2.5 mg Q4H RESP THERAPY PRN HHN SHORTNESS OF BREATH; Start 07/04/18 at 18:30 Metoclopramide HCl (Reglan) 5 mg Q6H PRN IV NAUSEA Last administered on 07/06/18at 21:38; Admin Dose 5 MG; Start 07/05/18 at 10:00 Acetaminophen/ Hydrocodone Bitart ([place] (5/325)) 1 tab Q4H PRN PO MODERATE PAIN LEVEL 4-6 Last administered on 07/06/18at 08:12; Admin Dose 1 TAB; Start 07/05/18 at 12:30 Midodrine (Proamatine) 10 mg TID PO Last administered on 07/08/18at 13:43; Admin Dose 10 MG; Start 07/06/18 at 09:00 Albuterol (Ventolin Hfa) 2 puff Q4 INH Last administered on 07/08/18 05:31; Adm in Dose 2 PUFF; Start 07/06/18 at 04:30 Acetaminophen/ Hydrocodone Bitart ([place] (5/325)) 1 tab Q6H PRN PO PAIN Last administered on 07/07/18 11:39; Admin Dose 1 TAB; Start 07/06/18 at 04:00 Ondansetron HCl (Zofran Odt) 4 mg Q6H PRN ODT NAUSEA AND/OR VOMITING; Start 07/06/18 at 04:00 Pantoprazole (Protonix Tab) 40 mg BID@0600,1800 PO Last administered on 07/08/18 05:30; Admin Dose 40 MG; Start 07/06/18 at 06:00 Norepinephrine 250 ml @ 1.875 mls/ hr TITRATE IV ; Start 07/06/18 at 10:28 Tramadol HCl (Ultram) 100 mg Q4H PRN PO SEVERE PAIN LEVEL 7-10 Last administered on 07/08/18 01:26; Admin Dose 100 MG; Start 07/06/18 at 11:00 Ceftriaxone Sodium 50 ml @ 100 mls/hr Q24H IVPB Last administered on 07/07/18 17:47; Admin Dose 100 MLS/HR; Start 07/06/18 at 16:30 Morphine Sulfate (morphine) 6 mg Q4H PRN PO SEVERE PAIN LEVEL 7-10 Last administered on 07/08/18 11:46; Admin Dose 6 MG; Start 07/06/18 at 22:00 Vancomycin HCl (Vancomycin Oral Syringe) 125 mg Q6 PO Last administered on 11:46; Admin Dose 125 MG; Start 07/07/18 at 18:00 ANA SPICER Jul 08, 2018 14:29
--- NOTE | 2018-07-08 16:10 | CONS ---
Assessment/Plan Assessment/Plan Hospital Course (Demo Recall) Patient is lethargic arousable in no distress. She is afebrile. No labs today Microbiology: Blood culture grew Klebsiella pneumonia on July 04 susceptible to Cipro and Levaquin, stool for C. difficile positive, urine culture negative MRSA swab negative Antimicrobials: Rocephin oral vancomycin Physical examination: Chronically ill-appearing middle-aged woman who is in no distress. Head atraumatic normocephalic sclera nonicteric vehicle mucosa dry neck is supple chest rise symmetrical breath sounds diminished at bases. Heart: S1-S2. Abdomen soft bowel sounds present extremities with bilateral edema, left lower extremity dressing intact Assessment: 1. Sepsis with Klebsiella pneumonia bacteremia likely secondary to SBP 2. Left lower extremity cellulitis 3. C. difficile colitis 4. Alcoholic liver cirrhosis 5. Recurrent ascites 6. Anemia and thrombocytopenia Plan: Add doxycycline, continue other antibiotics, repeat blood cultures, send fluid cultures with next paracentesis Consultation Date/Type/Reason Admit Date/Time Jul 04, 2018 at 14:22 Initial Consult Date 07/07/18 Type of Consult id Requesting Provider: ANA SIPCER Date/Time of Note DATE: 07/08/18 TIME: 16:10 Exam/Review of Systems Exam Vitals Vital Signs Date Temp Pulse Resp B/P (MAP) Pulse Ox O2 O2 Flow FiO2 Time Delivery Rate 07/08/18 98.4 91 20 99/52 (68) 95 Room Air 15:32 Intake and Output 07/07/18 07/07/18 07/08/18 1515:00 23:00 07:00 IntakeIntake Total 300 ml 310 ml OutputOutput Total 700 ml 300 ml BalanceBalance -400 ml 10 ml Results Result Diagram: 07/06/18 0510 07/08/18 0621 Results 24hrs Laboratory Tests Test 07/07/18 20:40 07/08/18 06:21 07/08/18 08:12 07/08/18 09:21 Urine Random Creatinine 141.91 Urine Random Sodium < 13 L Sodium Level 130 L Potassium Level 5.7 H Chloride Level 103 Carbon Dioxide Level 22 Anion Gap 5 Blood Urea Nitrogen 36 H Creatinine 1.26 H Est Glomerular Filtrat 45 L Rate mL/min Glucose Level 42 *L Calcium Level 8.2 L Iron Level 46 Total Iron Binding 131 L Capacity Percent Iron Saturation 35 Bedside Glucose 49 *L 73 Medications Medication Current Medications IV Flush (NS 3 ml) 3 ml PER PROTOCOL IV ; Start 07/04/18 at 18:30 Ondansetron HCl (Zofran Inj) 4 mg Q6H PRN IV NAUSEA/VOMITING Last administered on 07/06/18at 04:47; Admin Dose 4 MG; Start 07/04/18 at 18:30 Docusate Sodium (Colace) 100 mg Q12H PRN PO .CONSTIPATION; Start 07/04/18 at 18:30 Zolpidem Tartrate (Ambien) 5 mg QHS PRN PO .INSOMNIA; Start 07/04/18 at 18:30 Albuterol (Proventil 0.083% (Neb)) 2.5 mg Q4H RESP THERAPY PRN HHN SHORTNESS OF BREATH; Start 07/04/18 at 18:30 Metoclopramide HCl (Reglan) 5 mg Q6H PRN IV NAUSEA Last administered on 9at 21:38; Admin Dose 5 MG; Start 07/05/18 at 10:00 Acetaminophen/ Hydrocodone Bitart ([place] (5/325)) 1 tab Q4H PRN PO MODERATE PAIN LEVEL 4-6 Last administered on 07/06/18at 08:12; Admin Dose 1 TAB; Start 07/05/18 at 12:30 Midodrine (Proamatine) 10 mg TID PO Last administered on 07/08/18at 13:43; Admin Dose 10 MG; Start 07/06/18 at 09:00 Albuterol (Ventolin Hfa) 2 puff Q4 INH Last administered on 07/08/18at 05:31; Admin Dose 2 PUFF; Start 07/06/18 at 04:30 Acetaminophen/ Hydrocodone Bitart ([place] (5/325)) 1 tab Q6H PRN PO PAIN Last administered on 07/07/18at 11:39; Admin Dose 1 TAB; Start 07/06/18 at 04:00 Ondansetron HCl (Zofran Odt) 4 mg Q6H PRN ODT NAUSEA AND/OR VOMITING; Start 07/06/18 at 04:00 Pantoprazole (Protonix Tab) 40 mg BID@0600,1800 PO Last administered on 07/08/18at 05:30; Admin Dose 40 MG; Start 07/06/18 at 06:00 Norepinephrine 250 ml @ 1.875 mls/ hr TITRATE IV ; Start 07/06/18 at 10:28 Tramadol HCl (Ultram) 100 mg Q4H PRN PO SEVERE PAIN LEVEL 7-10 Last administered on 07/08/18at 01:26; Admin Dose 100 MG; Start 07/06/18 at 11:00 Ceftriaxone Sodium 50 ml @ 100 mls/hr Q24H IVPB Last administered on 07/07/18at 17:47; Admin Dose 100 MLS/HR; Start 07/06/18 at 16:30 Morphine Sulfate (morphine) 6 mg Q4H PRN PO SEVERE PAIN LEVEL 7-10 Last administered on 07/08/18 11:46; Admin Dose 6 MG; Start 07/06/18 at 22:00 Vancomycin HCl (Vancomycin Oral Syringe) 125 mg Q6 PO Last administered on 07/08/18 11:46; Admin Dose 125 MG; Start 07/07/18 at 18:00 EMA MUELLER NP Jul 08, 2018 16:10
[2018-07-08] MEDS: CEFTRIAXONE 1 GM/50 ML (PMX) 50 ML IVPB SCH (17:27)
[2018-07-08] MEDS: DOXYCYCLINE 100 MG in SOD CHLORIDE 0.9% 250 ML IVPB SCH (21:08)
[2018-07-09] VITALS (12 sets, daily range): BP systolic 89–99; BP diastolic 46–53; PULSE 93–103; RESP 20
[2018-07-09] MEDS: METOCLOPRAMIDE 10 MG INJ IV PRN (00:27)
[2018-07-09] MEDS: ONDANSETRON 4 MG INJ IV PRN (00:28)
[2018-07-09] MEDS: ALBUTEROL HFA 8 GM INHALER INH SCH ×6 (01:00→21:43)
[2018-07-09] MEDS: PANTOPRAZOLE (EC) 40 MG TAB PO SCH ×2 (06:47→17:26)
[2018-07-09] MEDS: VANCOMYCIN HCL 250 MG/5ML POSYG PO SCH ×4 (06:47→23:13)
[2018-07-09] MEDS: DOXYCYCLINE 100 MG in SOD CHLORIDE 0.9% 250 ML IVPB SCH ×2 (08:35→21:56)
[2018-07-09] MEDS: MIDODRINE 5 MG TAB PO SCH ×3 (08:35→21:43)
--- NOTE | 2018-07-09 10:58 | PN ---
Date/Time of Note Date/Time of Note DATE: 07/09/18 TIME: 10:55 Assessment/Plan VTE Prophylaxis Risk score (from Nsg)>0 risk: 5 Pharmacological prophylaxis: NA/contraindicated Pharm contraindication: liver dx Lines/Catheters IV Catheter Type (from Nrsg): Peripheral IV Assessment/Plan Hospital Course 1. Sepsis secondary to left lower extremity cellulitis-improving Lactic acidosis secondary to sepsis and/or decreased clearance from liver disease Blood cultures show Klebsiella pneumonia Continue IV antibiotics, have de-escalated to Rocephin based on cultures and sensitivities ID consultation appreciated 2. History of alcohol cirrhosis with persistent ascites and encephalopathy Status post paracentesis in the ER Continue home meds Patient is on the transplant list Restarted lactulose as patient's mentation has worsened 3. History of C. difficile C. difficile is positive, unclear if this is from previous episode or is a new acute infection Start vancomycin p.o. ID consultation appreciated Patient does have reported diarrhea 4. Oliguric acute kidney injury Rule out Hepatorenal Nephrology consultation appreciated Monitor renal function Renal ultrasound is negative 5. Hyperkalemia-resolved IV fluids Monitor Prophylaxis: No SCDs secondary to cellulitis, no anticoagulation secondary liver disease Result Diagram: 07/09/18 0543 07/09/18 0543 Results 24hrs Laboratory Tests Test 07/09/18 05:43 White Blood Count 18.3 #H Red Blood Count 2.17 L Hemoglobin 7.6 L Hematocrit 23.4 L Mean Corpuscular Volume 107.8 H Mean Corpuscular Hemoglobin 35.0 H Mean Corpuscular Hemoglobin Concent 32.5 Red Cell Distribution Width 16.7 H Platelet Count 78 #L Mean Platelet Volume 9.6 Immature Granulocytes % 5.600 H Neutrophils % Segmented Neutrophils % (Manual) 74 Band Neutrophils % (Manual) 3 Lymphocytes % Lymphocytes % (Manual) 8 L Monocytes % Monocytes % (Manual) 6 Eosinophils % Eosinophils % (Manual) 2 Basophils % Myelocytes % (Manual) 5 H Promyelocytes % (Manual) 2 H Nucleated Red Blood Cells % 0.1 H Immature Granulocytes # 1.030 H Neutrophils # Neutrophils # (Manual) 13.6 H Band Neutrophils # 0.5 Lymphocytes (Manual) 1.4 Lymphocytes # Monocytes # Monocytes # (Manual) 1.0 H Eosinophils # Basophils # Myelocytes # 0.9 H Promyelocytes # 0.3 H Nucleated Red Blood Cells # Platelet Estimate SIG DECREASED Polychromasia 3+ Poikilocytosis 3+ Anisocytosis 1+ Macrocytosis 1+ Acanthocytes 1+ Sodium Level 131 L Potassium Level 5.4 H Chloride Level 104 Carbon Dioxide Level 22 Anion Gap 5 Blood Urea Nitrogen 38 H Creatinine 1.23 H Est Glomerular Filtrat Rate mL/min 46 L Glucose Level 58 #L Calcium Level 8.3 L Subjective 24 Hr Interval Summary Musculoskeletal: bone/joint pain Exam/Review of Systems Exam Vitals Vital Signs Date Temp Pulse Resp B/P (MAP) Pulse Ox O2 O2 Flow FiO2 Time Delivery Rate 07/09/18 99 08:00 07/09/18 98.4 20 89/48 (62) 96 Room Air 07:38 Intake and Output 07/08/18 07/08/18 07/09/18 1515:00 23:00 07:00 IntakeIntake Total 100 ml 550 ml 450 ml OutputOutput Total 400 ml 675 ml BalanceBalance 100 ml 150 ml -225 ml Psych: confusion Respiratory: clear to auscultation Cardiovascular: regular rate and rhythm Gastrointestinal: soft, distended Musculoskeletal: nl extremities to inspection Results Results 24hrs Laboratory Tests Test 07/09/18 05:43 White Blood Count 18.3 #H Red Blood Count 2.17 L Hemoglobin 7.6 L Hematocrit 23.4 L Mean Corpuscular Volume 107.8 H Mean Corpuscular Hemoglobin 35.0 H Mean Corpuscular Hemoglobin Concent 32.5 Red Cell Distribution Width 16.7 H Platelet Count 78 #L Mean Platelet Volume 9.6 Immature Granulocytes % 5.600 H Neutrophils % Segmented Neutrophils % (Manual) 74 Band Neutrophils % (Manual) 3 Lymphocytes % Lymphocytes % (Manual) 8 L Monocytes % Monocytes % (Manual) 6 Eosinophils % Eosinophils % (Manual) 2 Basophils % Myelocytes % (Manual) 5 H Promyelocytes % (Manual) 2 H Nucleated Red Blood Cells % 0.1 H Immature Granulocytes # 1.030 H Neutrophils # Neutrophils # (Manual) 13.6 H Band Neutrophils # 0.5 Lymphocytes (Manual) 1.4 Lymphocytes # Monocytes # Monocytes # (Manual) 1.0 H Eosinophils # Basophils # Myelocytes # 0.9 H Promyelocytes # 0.3 H Nucleated Red Blood Cells # Platelet Estimate SIG DECREASED Polychromasia 3+ Poikilocytosis 3+ Anisocytosis 1+ Macrocytosis 1+ Acanthocytes 1+ Sodium Level 131 L Potassium Level 5.4 H Chloride Level 104 Carbon Dioxide Level 22 Anion Gap 5 Blood Urea Nitrogen 38 H Creatinine 1.23 H Est Glomerular Filtrat Rate mL/min 46 L Glucose Level 58 #L Calcium Level 8.3 L Medications Medication Current Medications IV Flush (NS 3 ml) 3 ml PER PROTOCOL IV ; Start 07/04/18 at 18:30 Ondansetron HCl (Zofran Inj) 4 mg Q6H PRN IV NAUSEA/VOMITING Last administered on 07/09/18at 00:28; Admin Dose 4 MG; Start 07/04/18 at 18:30 Docusate Sodium (Colace) 100 mg Q12H PRN PO .CONSTIPATION; Start 07/04/18 at 18:30 Zolpidem Tartrate (Ambien) 5 mg QHS PRN PO .INSOMNIA; Start 07/04/18 at 18:30 Albuterol (Proventil 0.083% (Neb)) 2.5 mg Q4H RESP THERAPY PRN HHN SHORTNESS OF BREATH; Start 07/04/18 at 18:30 Metoclopramide HCl (Reglan) 5 mg Q6H PRN IV NAUSEA Last administered on 9at 00:27; Admin Dose 5 MG; Start 07/05/18 at 10:00 Acetaminophen/ Hydrocodone Bitart ([place] (5/325)) 1 tab Q4H PRN PO MODERATE PAIN LEVEL 4-6 Last administered on 07/06/18at 08:12; Admin Dose 1 TAB; Start 07/05/18 at 12:30 Midodrine (Proamatine) 10 mg TID PO Last administered on 07/09/18 08:35; Admin Dose 10 MG; Start 07/06/18 at 09:00 Albuterol (Ventolin Hfa) 2 puff Q4 INH Last administered on 07/09/18 08:36; Admin Dose 2 PUFF; Start 07/06/18 at 04:30 Acetaminophen/ Hydrocodone Bitart ([place] (5/325)) 1 tab Q6H PRN PO PAIN Last administered on 07/07/18at 11:39; Admin Dose 1 TAB; Start 07/06/18 at 04:00 Ondansetron HCl (Zofran Odt) 4 mg Q6H PRN ODT NAUSEA AND/OR VOMITING; Start 07/06/18 at 04:00 Pantoprazole (Protonix Tab) 40 mg BID@0600,1800 PO Last administered on 07/09/18 06:47; Admin Dose 40 MG; Start 07/06/18 at 06:00 Norepinephrine 250 ml @ 1.875 mls/ hr TITRATE IV ; Start 07/06/18 at 10:28 Tramadol HCl (Ultram) 100 mg Q4H PRN PO SEVERE PAIN LEVEL 7-10 Last administered on 07/08/18at 01:26; Admin Dose 100 MG; Start 07/06/18 at 11:00 Ceftriaxone Sodium 50 ml @ 100 mls/hr Q24H IVPB Last administered on 07/08/18 17:27; Admin Dose 100 MLS/HR; Start 07/06/18 at 16:30 Morphine Sulfate (morphine) 6 mg Q4H PRN PO SEVERE PAIN LEVEL 7-10 Last administered on 07/08/18 21:19; Admin Dose 6 MG; Start 07/06/18 at 22:00 Vancomycin HCl (Vancomycin Oral Syringe) 125 mg Q6 PO Last administered on 07/09/18at 06:47; Admin Dose 125 MG; Start 07/07/18 at 18:00 Doxycycline Hyclate 100 mg/ Sodium Chloride 250 ml @ 250 mls/hr Q12 IVPB Last administered on 07/09/18at 08:35; Admin Dose 250 MLS/HR; Start 07/08/18 at 21:00 ANA SPICER Jul 09, 2018 10:58
--- NOTE | 2018-07-09 11:10 | CONS ---
Assessment/Plan Assessment/Plan Hospital Course (Demo Recall) ID PROGRESS NOTE CURRENT ABX: DAY # => Doxycycline IV + Ceftriaxone + Vanco Liq PO 07/09/18 0543 07/09/18 0543 24H INTERVAL SUMMARY * Awake, alert, c/o severe pain in LLEXT which has DSG C/D/I * WBC elevated due to acute C.Diff Colitis, no fevers, VSS MICRO/OTHER * 07/07/18 (+)C.Diff * 07/06/18 Urine (-) * 07/04/18 BCx (+) GNR BLOOD CULTURE Final BCULT GRAM BOTTLE 1 Gram negative rods . seen on gram stain of the broth BCULT GRAM BOTTLE 2 Gram negative rods . seen on gram stain of the broth Organism 1 K.PNEUMONIAE SSP PNEUMONIAE K PNE SPP M.I.C. RX --------- --- CEFAZOLIN I CEFOTAXIME S CIPROFLOXACIN <=0.25 S GENTAMICIN <=1 S LEVOFLOXACIN <=0.12 S TOBRAMYCIN <=1 S TRIMETHOPRIM/SULFAMETHOXAZOLE <=20 S PHYSICAL EXAMINATION: GENERAL: Afebrile, VSS -- c/o severe LLEXT Pain HEENT: AT, NC, anicteric NECK: Supple, trach midline CHEST: Equal chest rise bilaterally, without dyspnea on observation HEART: Pulse RRR ABDOMEN: Distended EXTREMITIES: Warm, dry - LLEXT SHIRLEY wrapped SKIN: No rash, no diaphoresis ID ASSESSMENT 48 yo F admit with: 1. GNR Sepsis on admission w/lactic acidosis + BCx (+)GNR Kleb Pneumoniae 2. Acute cellulitis LLEXT 3. 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 Recurrent C.Diff colitis 5. Oliguric acute kidney injury ()MRSA Nares ABX ALLERGIES: KNDA INVASIVES: PIV CURRENT ABX: DAY # => Doxycycline IV + Ceftriaxone + Vanco Liq PO ID RECOMMENDATIONS/PLAN: 1. Continue current ABX + Add Rifaxamin due to combo Dx Ascites/encephalopathy + C.Diff Diarrhea . Consultation Date/Type/Reason Admit Date/Time Jul 04, 2018 at 14:22 Initial Consult Date 07/07/18 Requesting Provider: ANA SPICER Date/Time of Note DATE: 07/09/18 TIME: 11:10 Exam/Review of Systems Exam Vitals Vital Signs Date Temp Pulse Resp B/P (MAP) Pulse Ox O2 O2 Flow FiO2 Time Delivery Rate 07/09/18 99 08:00 07/09/18 98.4 20 89/48 (62) 96 Room Air 07:38 Intake and Output 07/08/18 07/08/18 07/09/18 1515:00 23:00 07:00 IntakeIntake Total 100 ml 550 ml 450 ml OutputOutput Total 400 ml 675 ml BalanceBalance 100 ml 150 ml -225 ml Results Result Diagram: 07/09/18 0543 07/09/18 0543 Results 24hrs Laboratory Tests Test 07/09/18 05:43 White Blood Count 18.3 #H Red Blood Count 2.17 L Hemoglobin 7.6 L Hematocrit 23.4 L Mean Corpuscular Volume 107.8 H Mean Corpuscular Hemoglobin 35.0 H Mean Corpuscular Hemoglobin Concent 32.5 Red Cell Distribution Width 16.7 H Platelet Count 78 #L Mean Platelet Volume 9.6 Immature Granulocytes % 5.600 H Neutrophils % Segmented Neutrophils % (Manual) 74 Band Neutrophils % (Manual) 3 Lymphocytes % Lymphocytes % (Manual) 8 L Monocytes % Monocytes % (Manual) 6 Eosinophils % Eosinophils % (Manual) 2 Basophils % Myelocytes % (Manual) 5 H Promyelocytes % (Manual) 2 H Nucleated Red Blood Cells % 0.1 H Immature Granulocytes # 1.030 H Neutrophils # Neutrophils # (Manual) 13.6 H Band Neutrophils # 0.5 Lymphocytes (Manual) 1.4 Lymphocytes # Monocytes # Monocytes # (Manual) 1.0 H Eosinophils # Basophils # Myelocytes # 0.9 H Promyelocytes # 0.3 H Nucleated Red Blood Cells # Platelet Estimate SIG DECREASED Polychromasia 3+ Poikilocytosis 3+ Anisocytosis 1+ Macrocytosis 1+ Acanthocytes 1+ Sodium Level 131 L Potassium Level 5.4 H Chloride Level 104 Carbon Dioxide Level 22 Anion Gap 5 Blood Urea Nitrogen 38 H Creatinine 1.23 H Est Glomerular Filtrat Rate mL/min 46 L Glucose Level 58 #L Calcium Level 8.3 L Medications Medication Current Medications IV Flush (NS 3 ml) 3 ml PER PROTOCOL IV ; Start 07/04/18 at 18:30 Ondansetron HCl (Zofran Inj) 4 mg Q6H PRN IV NAUSEA/VOMITING Last administered on 07/09/18 00:28; Admin Dose 4 MG; Start 07/04/18 at 18:30 Docusate Sodium (Colace) 100 mg Q12H PRN PO .CONSTIPATION; Start 07/04/18 at 18:30 Zolpidem Tartrate (Ambien) 5 mg QHS PRN PO .INSOMNIA; Start 07/04/18 at 18:30 Albuterol (Proventil 0.083% (Neb)) 2.5 mg Q4H RESP THERAPY PRN HHN SHORTNESS OF BREATH; Start 07/04/18 at 18:30 Metoclopramide HCl (Reglan) 5 mg Q6H PRN IV NAUSEA Last administered on 07/09/18 00:27; Admin Dose 5 MG; Start 07/05/18 at 10:00 Acetaminophen/ Hydrocodone Bitart ([place] (5/325)) 1 tab Q4H PRN PO MODERATE PAIN LEVEL 4-6 Last administered on 07/06/18 08:12; Admin Dose 1 TAB; Start 07/05/18 at 12:30 Midodrine (Proamatine) 10 mg TID PO Last administered on 07/09/18 08:35; Admin Dose 10 MG; Start 07/06/18 at 09:00 Albuterol (Ventolin Hfa) 2 puff Q4 INH Last administered on 07/09/18 08:36; Admin Dose 2 PUFF; Start 07/06/18 at 04:30 Acetaminophen/ Hydrocodone Bitart ([place] (5/325)) 1 tab Q6H PRN PO PAIN Last administered on 07/07/18 11:39; Admin Dose 1 TAB; Start 07/06/18 at 04:00 Ondansetron HCl (Zofran Odt) 4 mg Q6H PRN ODT NAUSEA AND/OR VOMITING; Start 07/06/18 at 04:00 Pantoprazole (Protonix Tab) 40 mg BID@0600,1800 PO Last administered on 07/09/18 06:47; Admin Dose 40 MG; Start 07/06/18 at 06:00 Norepinephrine 250 ml @ 1.875 mls/ hr TITRATE IV ; Start 07/06/18 at 10:28 Tramadol HCl (Ultram) 100 mg Q4H PRN PO SEVERE PAIN LEVEL 7-10 Last administer ed on 07/08/18at 01:26; Admin Dose 100 MG; Start 07/06/18 at 11:00 Ceftriaxone Sodium 50 ml @ 100 mls/hr Q24H IVPB Last administered on 07/08/18at 17:27; Admin Dose 100 MLS/HR; Start 07/06/18 at 16:30 Morphine Sulfate (morphine) 6 mg Q4H PRN PO SEVERE PAIN LEVEL 7-10 Last administered on 07/08/18at 21:19; Admin Dose 6 MG; Start 07/06/18 at 22:00 Vancomycin HCl (Vancomycin Oral Syringe) 125 mg Q6 PO Last administered on 07/09/18at 06:47; Admin Dose 125 MG; Start 07/07/18 at 18:00 Doxycycline Hyclate 100 mg/ Sodium Chloride 250 ml @ 250 mls/hr Q12 IVPB Last administered on 07/09/18at 08:35; Admin Dose 250 MLS/HR; Start 07/08/18 at 21:00 Lactulose (Enulose) 10 gm BID PO ; Start 07/09/18 at 11:00 CHRIS BOWEN NP Jul 09, 2018 11:10
[2018-07-09] MEDS: LACTULOSE 30ML CUP PO SCH ×2 (12:19→21:42)
[2018-07-09] MEDS: morphine LIQ (10 MG/5 ML) CUP PO PRN ×2 (13:50→21:56)
--- NOTE | 2018-07-09 15:39 | CONS ---
Assessment/Plan Assessment/Plan Assessment/Plan 48 yo Female with 1) PATTIE in the setting of Sepsis and hemodynamic changes, ?HRS, More Likely Pre- renal azotemia and Intravascular Volume Depletion, R/o ATN 2) Hyponatremia in Chronic Liver disease, S/p Paracentesis 3) Hyperkalemia Resolved 4) CDiff Diarrhea 5) Lower extremity Cellulitis 6) Abdominal Pain Urine Na <15, Pre Renal Picture, Stable S/p Albumin, hold any diuretic at this time Cont Midodrine Low K diet Kayexalate PRN For K+>5.5 Pt is already on Transplant list at [facility] No acute indication for HD at this time Will cont to closely follow along with you Do not hesitate to contact me if you have any questions or concerns. Consultation Date/Type/Reason Admit Date/Time Jul 04, 2018 at 14:22 Type of Consult Nephrology Reason for Consultation PATTIE Date/Time of Note DATE: 07/09/18 TIME: 15:36 Constitutional: No requiring O2 Exam/Review of Systems Vital Signs Vitals Vital Signs Date Temp Pulse Resp B/P (MAP) Pulse Ox O2 O2 Flow FiO2 Time Delivery Rate 07/09/18 98.5 94 20 94/46 (62) 95 15:00 07/09/18 Room Air 11:27 Intake and Output 07/08/18 07/08/18 07/09/18 1515:00 23:00 07:00 IntakeIntake Total 100 ml 550 ml 450 ml OutputOutput Total 400 ml 675 ml BalanceBalance 100 ml 150 ml -225 ml Exam Constitutional: No distress Head: atraumatic Neck: No jvd Respiratory: No labored breathing Cardiovascular: edema Gastrointestinal: ascites, distended Extremities: pitting pedal edema 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: [employer] II-XII intact, nl mental status, lethargic Skin: No diaphoresis Labs Result Diagram: 07/09/18 0543 07/09/18 0543 Results 24hrs Laboratory Tests Test 07/09/18 05:43 White Blood Count 18.3 #H Red Blood Count 2.17 L Hemoglobin 7.6 L Hematocrit 23.4 L Mean Corpuscular Volume 107.8 H Mean Corpuscular Hemoglobin 35.0 H Mean Corpuscular Hemoglobin Concent 32.5 Red Cell Distribution Width 16.7 H Platelet Count 78 #L Mean Platelet Volume 9.6 Immature Granulocytes % 5.600 H Neutrophils % Segmented Neutrophils % (Manual) 74 Band Neutrophils % (Manual) 3 Lymphocytes % Lymphocytes % (Manual) 8 L Monocytes % Monocytes % (Manual) 6 Eosinophils % Eosinophils % (Manual) 2 Basophils % Myelocytes % (Manual) 5 H Promyelocytes % (Manual) 2 H Nucleated Red Blood Cells % 0.1 H Immature Granulocytes # 1.030 H Neutrophils # Neutrophils # (Manual) 13.6 H Band Neutrophils # 0.5 Lymphocytes (Manual) 1.4 Lymphocytes # Monocytes # Monocytes # (Manual) 1.0 H Eosinophils # Basophils # Myelocytes # 0.9 H Promyelocytes # 0.3 H Nucleated Red Blood Cells # Platelet Estimate SIG DECREASED Polychromasia 3+ Poikilocytosis 3+ Anisocytosis 1+ Macrocytosis 1+ Acanthocytes 1+ Sodium Level 131 L Potassium Level 5.4 H Chloride Level 104 Carbon Dioxide Level 22 Anion Gap 5 Blood Urea Nitrogen 38 H Creatinine 1.23 H Est Glomerular Filtrat Rate mL/min 46 L Glucose Level 58 #L Calcium Level 8.3 L Medications Medications Current Medications IV Flush (NS 3 ml) 3 ml PER PROTOCOL IV ; Start 07/04/18 at 18:30 Ondansetron HCl (Zofran Inj) 4 mg Q6H PRN IV NAUSEA/VOMITING Last administered on 07/09/18at 00:28; Admin Dose 4 MG; Start 07/04/18 at 18:30 Docusate Sodium (Colace) 100 mg Q12H PRN PO .CONSTIPATION; Start 07/04/18 at 18:30 Zolpidem Tartrate (Ambien) 5 mg QHS PRN PO .INSOMNIA; Start 07/04/18 at 18:30 Albuterol (Proventil 0.083% (Neb)) 2.5 mg Q4H RESP THERAPY PRN HHN SHORTNESS OF BREATH; Start 07/04/18 at 18:30 Metoclopramide HCl (Reglan) 5 mg Q6H PRN IV NAUSEA Last administered on 07/09/18at 00:27; Admin Dose 5 MG; Start 07/05/18 at 10:00 Acetaminophen/ Hydrocodone Bitart ([place] (5/325)) 1 tab Q4H PRN PO MODERATE PAIN LEVEL 4-6 Last administered on 07/06/18at 08:12; Admin Dose 1 TAB; Start 07/05/18 at 12:30 Midodrine (Proamatine) 10 mg TID PO Last administered on 07/09/18 12:19; Admin Dose 10 MG; Start 07/06/18 at 09:00 Albuterol (Ventolin Hfa) 2 puff Q4 INH Last administered on 07/09/18 12:19; Admin Dose 2 PUFF; Start 07/06/18 at 04:30 Acetaminophen/ Hydrocodone Bitart ([place] (5/325)) 1 tab Q6H PRN PO PAIN Last administered on 07/07/18at 11:39; Admin Dose 1 TAB; Start 07/06/18 at 04:00 Ondansetron HCl (Zofran Odt) 4 mg Q6H PRN ODT NAUSEA AND/OR VOMITING; Start 07/06/18 at 04:00 Pantoprazole (Protonix Tab) 40 mg BID@0600,1800 PO Last administered on 07/09/18at 06:47; Admin Dose 40 MG; Start 07/06/18 at 06:00 Norepinephrine 250 ml @ 1.875 mls/ hr TITRATE IV ; Start 07/06/18 at 10:28 Tramadol HCl (Ultram) 100 mg Q4H PRN PO SEVERE PAIN LEVEL 7-10 Last administered on 07/08/18 01:26; Admin Dose 100 MG; Start 07/06/18 at 11:00 Ceftriaxone Sodium 50 ml @ 100 mls/hr Q24H IVPB Last administered on 07/08/18at 17:27; Admin Dose 100 MLS/HR; Start 07/06/18 at 16:30 Morphine Sulfate (morphine) 6 mg Q4H PRN PO SEVERE PAIN LEVEL 7-10 Last a dministered on 07/09/18 13:50; Admin Dose 6 MG; Start 07/06/18 at 22:00 Vancomycin HCl (Vancomycin Oral Syringe) 125 mg Q6 PO Last administered on 07/09/18 12:19; Admin Dose 125 MG; Start 07/07/18 at 18:00 Doxycycline Hyclate 100 mg/ Sodium Chloride 250 ml @ 250 mls/hr Q12 IVPB Last administered on 07/09/18 08:35; Admin Dose 250 MLS/HR; Start 07/08/18 at 21:00 Lactulose (Enulose) 10 gm BID PO Last administered on 07/09/18at 12:19; Admin Dose 10 GM; Start 07/09/18 at 11:00 Rifaximin (Xifaxan) 200 mg TID PO ; Start 07/09/18 at 21:00 PARRIS THOMAS MD Jul 09, 2018 15:39
[2018-07-09] MEDS ORDERED: SODIUM POLYSTYRENE 15 GM KIT (POWDER + SORBITOL) PO ONE (16:00)
[2018-07-09] MEDS: CEFTRIAXONE 1 GM/50 ML (PMX) 50 ML IVPB SCH (16:14)
[2018-07-09] MEDS: RIFAXIMIN 200 MG TAB PO SCH (21:42)
[2018-07-10] VITALS (12 sets, daily range): BP systolic 94–112; BP diastolic 45–61; PULSE 57–107; RESP 18–20
[2018-07-10] MEDS: ALBUTEROL HFA 8 GM INHALER INH SCH ×4 (00:16→21:23)
[2018-07-10] MEDS: VANCOMYCIN HCL 250 MG/5ML POSYG PO SCH ×4 (05:44→23:07)
[2018-07-10] MEDS: PANTOPRAZOLE (EC) 40 MG TAB PO SCH ×2 (05:44→18:01)
--- NOTE | 2018-07-10 07:41 | CONS ---
Assessment/Plan Assessment/Plan Assessment/Plan 48 yo Female with 1) DEBRA in the setting of Sepsis and hemodynamic changes, ?HRS, More Likely Pre- renal azotemia and Intravascular Volume Depletion, R/o ATN 2) Hyponatremia in Chronic Liver disease, S/p Paracentesis 3) Hyperkalemia Resolved 4) CDiff Diarrhea 5) Lower extremity Cellulitis 6) Abdominal Pain Cr stable and improved Cont current Rx and plan Hold diuretic at this time Will need to restart once Debra resolved Prevously: Urine Na <15, Pre Renal Picture, Stable S/p Albumin Low K diet Kayexalate PRN For K+>5.5 Pt is already on Transplant list at [facility] No acute indication for HD at this time Will cont to closely follow along with you Do not hesitate to contact me if you have any questions or concerns. Consultation Date/Type/Reason Admit Date/Time Jul 04, 2018 at 14:22 Type of Consult Nephrology Date/Time of Note DATE: 07/10/18 TIME: 07:39 Back pain Constitutional: No requiring O2 Exam/Review of Systems Vital Signs Vitals Vital Signs Date Temp Pulse Resp B/P (MAP) Pulse Ox O2 O2 Flow FiO2 Time Delivery Rate 07/10/18 98.6 61 18 104/58 98 07:26 (73) 07/09/18 Room Air 11:27 Intake and Output 07/09/18 07/09/18 07/10/18 1515:00 23:00 07:00 IntakeIntake Total 250 ml 410 ml 160 ml OutputOutput Total 400 ml 400 ml BalanceBalance 250 ml 10 ml -240 ml Exam Constitutional: distress Head: atraumatic Neck: No jvd Respiratory: clear to auscultation Cardiovascular: regular rate and rhythm, edema Gastrointestinal: ascites 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: lethargic Skin: No diaphoresis Labs Result Diagram: 07/10/18 0626 07/10/18 0625 Results 24hrs Laboratory Tests Test 07/10/18 06:25 07/10/18 06:26 Sodium Level 131 L Potassium Level 4.9 Chloride Level 101 Carbon Dioxide Level 20 L Anion Gap 10 # Blood Urea Nitrogen 37 H Creatinine 0.99 Est Glomerular Filtrat Rate mL/min 60 Glucose Level 72 Calcium Level 8.4 Magnesium Level 2.2 White Blood Count 17.4 H Red Blood Count 2.05 L Hemoglobin 7.1 L Hematocrit 22.1 L Mean Corpuscular Volume 107.8 H Mean Corpuscular Hemoglobin 34.6 H Mean Corpuscular Hemoglobin Concent 32.1 Red Cell Distribution Width 17.4 H Platelet Count 71 L Mean Platelet Volume 8.9 Immature Granulocytes % 6.000 H Neutrophils % Lymphocytes % Monocytes % Eosinophils % Basophils % Nucleated Red Blood Cells % 0.0 Immature Granulocytes # 1.040 H Neutrophils # Lymphocytes # Monocytes # Eosinophils # Basophils # Nucleated Red Blood Cells # Medications Medications Current Medications IV Flush (NS 3 ml) 3 ml PER PROTOCOL IV ; Start 07/04/18 at 18:30 Ondansetron HCl (Zofran Inj) 4 mg Q6H PRN IV NAUSEA/VOMITING Last administered on 07/09/18 00:28; Admin Dose 4 MG; Start 07/04/18 at 18:30 Docusate Sodium (Colace) 100 mg Q12H PRN PO .CONSTIPATION; Start 07/04/18 at 18:30 Zolpidem Tartrate (Ambien) 5 mg QHS PRN PO .INSOMNIA; Start 07/04/18 at 18:30 Albuterol (Proventil 0.083% (Neb)) 2.5 mg Q4H RESP THERAPY PRN HHN SHORTNESS OF BREATH; Start 07/04/18 at 18:30 Metoclopramide HCl (Reglan) 5 mg Q6H PRN IV NAUSEA Last administered on 07/09/18 00:27; Admin Dose 5 MG; Start 07/05/18 at 10:00 Acetaminophen/ Hydrocodone Bitart ([place] (5/325)) 1 tab Q4H PRN PO MODERATE PAIN LEVEL 4-6 Last administered on 07/06/18 08:12; Admin Dose 1 TAB; Start 07/05/18 at 12:30 Midodrine (Proamatine) 10 mg TID PO Last administered on 07/09/18 21:43; Admin Dose 10 MG; Start 07/06/18 at 09:00 Albuterol (Ventolin Hfa) 2 puff Q4 INH Last administered on 07/10/18 05:44; Admin Dose 2 PUFF; Start 07/06/18 at 04:30 Acetaminophen/ Hydrocodone Bitart ([place] (5/325)) 1 tab Q6H PRN PO PAIN Last administered on 07/07/18 11:39; Admin Dose 1 TAB; Start 07/06/18 at 04:00 Ondansetron HCl (Zofran Odt) 4 mg Q6H PRN ODT NAUSEA AND/OR VOMITING; Start 07/06/18 at 04:00 Pantoprazole (Protonix Tab) 40 mg BID@0600,1800 PO Last administered on 07/10/18 05:44; Admin Dose 40 MG; Start 07/06/18 at 06:00 Norepinephrine 250 ml @ 1.875 mls/ hr TITRATE IV ; Start 07/06/18 at 10:28 Tramadol HCl (Ultram) 100 mg Q4H PRN PO SEVERE PAIN LEVEL 7-10 Last administered on 07/08/18 01:26; Admin Dose 100 MG; Start 07/06/18 at 11:00 Ceftriaxone Sodium 50 ml @ 100 mls/hr Q24H IVPB Last administered on 07/09/18 16:14; Admin Dose 100 MLS/HR; Start 07/06/18 at 16:30 Morphine Sulfate (morphine) 6 mg Q4H PRN PO SEVERE PAIN LEVEL 7-10 Last administered on 07/09/18 21:56; Admin Dose 6 MG; Start 07/06/18 at 22:00 Vancomycin HCl (Vancomycin Oral Syringe) 125 mg Q6 PO Last administered on 07/10/18 05:44; Admin Dose 125 MG; Start 07/07/18 at 18:00 Doxycycline Hyclate 100 mg/ Sodium Chloride 250 ml @ 250 mls/hr Q12 IVPB Last administered on 07/09/18 21:56; Admin Dose 250 MLS/HR; Start 07/08/18 at 21:00 Lactulose (Enulose) 10 gm BID PO Last administered on 07/09/18 21:42; Admin Dose 10 GM; Start 07/09/18 at 11:00 Rifaximin (Xifaxan) 200 mg TID PO Last administered on 07/09/18 21:42; Admin Dose 200 MG; Start 07/09/18 at 21:00 PARRIS THOMAS MD Jul 10, 2018 07:41
[2018-07-10] MEDS: LACTULOSE 30ML CUP PO SCH ×2 (08:56→21:21)
[2018-07-10] MEDS: DOXYCYCLINE 100 MG in SOD CHLORIDE 0.9% 250 ML IVPB SCH ×2 (08:59→21:21)
[2018-07-10] MEDS: RIFAXIMIN 200 MG TAB PO SCH ×3 (09:00→21:22)
[2018-07-10] MEDS: MIDODRINE 5 MG TAB PO SCH ×3 (09:00→21:22)
[2018-07-10] MEDS: morphine LIQ (10 MG/5 ML) CUP PO PRN ×2 (09:09→18:01)
--- NOTE | 2018-07-10 12:13 | PN ---
Date/Time of Note Date/Time of Note DATE: 07/10/18 TIME: 12:08 Assessment/Plan VTE Prophylaxis Risk score (from Nsg)>0 risk: 5 Pharmacological prophylaxis: NA/contraindicated Pharm contraindication: liver dx Lines/Catheters IV Catheter Type (from Nrsg): Peripheral IV Urinary Cath still in place: No Assessment/Plan Hospital Course 1. Sepsis secondary to left lower extremity cellulitis-improving Lactic acidosis secondary to sepsis and/or decreased clearance from liver disease Blood cultures show Klebsiella pneumonia Continue IV antibiotics, have de-escalated to Rocephin based on cultures and sensitivities ID consultation appreciated Continue wound care for abrasion on left foot 2. 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 History of C. difficile C. difficile is positive, unclear if this is from previous episode or is a new acute infection Continue vancomycin p.o. ID consultation appreciated Patient does have reported diarrhea, of note patient is on lactulose 4. Oliguric acute kidney injury-improved Etiology was likely secondary to decreased intravascular volume Status post albumin Hepatorenal less likely Nephrology consultation appreciated Monitor renal function Renal ultrasound is negative 5. Hyperkalemia-resolved IV fluids Monitor 6. Likely psychiatric disorder Patient is very anxious and histrionic Consider psych eval Prophylaxis: No SCDs secondary to cellulitis, no anticoagulation secondary liver disease DC planning: Patient is very anxious and continues to report that she is in pain despite sufficient treatment, cellulitis and acute kidney injury are resolving, anticipate DC in the next several days with vancomycin p.o. for C. difficile, p ossible shelter placement if patient cannot ambulate Result Diagram: 07/10/18 0626 07/10/18 0625 Results 24hrs Laboratory Tests Test 07/10/18 06:25 07/10/18 06:26 Sodium Level 131 L Potassium Level 4.9 Chloride Level 101 Carbon Dioxide Level 20 L Anion Gap 10 # Blood Urea Nitrogen 37 H Creatinine 0.99 Est Glomerular Filtrat Rate mL/min 60 Glucose Level 72 Calcium Level 8.4 Magnesium Level 2.2 White Blood Count 17.4 H Red Blood Count 2.05 L Hemoglobin 7.1 L Hematocrit 22.1 L Mean Corpuscular Volume 107.8 H Mean Corpuscular Hemoglobin 34.6 H Mean Corpuscular Hemoglobin Concent 32.1 Red Cell Distribution Width 17.4 H Platelet Count 71 L Mean Platelet Volume 8.9 Immature Granulocytes % 6.000 H Neutrophils % Segmented Neutrophils % (Manual) 76 Band Neutrophils % (Manual) 3 Lymphocytes % Lymphocytes % (Manual) 7 L Monocytes % Monocytes % (Manual) 9 Eosinophils % Basophils % Metamyelocytes % (manual) 2 H Myelocytes % (Manual) 1 H Promyelocytes % (Manual) 2 H Nucleated Red Blood Cells % 0.0 Immature Granulocytes # 1.040 H Neutrophils # Neutrophils # (Manual) 13.3 H Band Neutrophils # 0.5 Lymphocytes (Manual) 1.2 Lymphocytes # Monocytes # Monocytes # (Manual) 1.5 H Eosinophils # Basophils # Metamyelocytes # 0.3 H Myelocytes # 0.1 H Promyelocytes # 0.3 H Nucleated Red Blood Cells # Toxic Granulation 1+ Platelet Estimate SIG DECREASED Polychromasia 1+ Poikilocytosis 1+ Anisocytosis 1+ Macrocytosis 1+ Subjective 24 Hr Interval Summary Musculoskeletal: bone/joint pain Exam/Review of Systems Exam Vitals Vital Signs Date Temp Pulse Resp B/P (MAP) Pulse Ox O2 O2 Flow FiO2 Time Delivery Rate 07/10/18 98.6 62 18 108/61 99 11:51 (77) 07/09/18 Room Air 11:27 Intake and Output 07/09/18 07/09/18 07/10/18 1515:00 23:00 07:00 IntakeIntake Total 250 ml 410 ml 160 ml OutputOutput Total 400 ml 400 ml BalanceBalance 250 ml 10 ml -240 ml Constitutional: alert Psych: anxiety Respiratory: clear to auscultation Gastrointestinal: soft, distended Musculoskeletal: nl extremities to inspection Results Results 24hrs Laboratory Tests Test 07/10/18 06:25 07/10/18 06:26 Sodium Level 131 L Potassium Level 4.9 Chloride Level 101 Carbon Dioxide Level 20 L Anion Gap 10 # Blood Urea Nitrogen 37 H Creatinine 0.99 Est Glomerular Filtrat Rate mL/min 60 Glucose Level 72 Calcium Level 8.4 Magnesium Level 2.2 White Blood Count 17.4 H Red Blood Count 2.05 L Hemoglobin 7.1 L Hematocrit 22.1 L Mean Corpuscular Volume 107.8 H Mean Corpuscular Hemoglobin 34.6 H Mean Corpuscular Hemoglobin Concent 32.1 Red Cell Distribution Width 17.4 H Platelet Count 71 L Mean Platelet Volume 8.9 Immature Granulocytes % 6.000 H Neutrophils % Segmented Neutrophils % (Manual) 76 Band Neutrophils % (Manual) 3 Lymphocytes % Lymphocytes % (Manual) 7 L Monocytes % Monocytes % (Manual) 9 Eosinophils % Basophils % Metamyelocytes % (manual) 2 H Myelocytes % (Manual) 1 H Promyelocytes % (Manual) 2 H Nucleated Red Blood Cells % 0.0 Immature Granulocytes # 1.040 H Neutrophils # Neutrophils # (Manual) 13.3 H Band Neutrophils # 0.5 Lymphocytes (Manual) 1.2 Lymphocytes # Monocytes # Monocytes # (Manual) 1.5 H Eosinophils # Basophils # Metamyelocytes # 0.3 H Myelocytes # 0.1 H Promyelocytes # 0.3 H Nucleated Red Blood Cells # Toxic Granulation 1+ Platelet Estimate SIG DECREASED Polychromasia 1+ Poikilocytosis 1+ Anisocytosis 1+ Macrocytosis 1+ Medications Medication Current Medications IV Flush (NS 3 ml) 3 ml PER PROTOCOL IV ; Start 07/04/18 at 18:30 Ondansetron HCl (Zofran Inj) 4 mg Q6H PRN IV NAUSEA/VOMITING Last administered on 07/09/18at 00:28; Admin Dose 4 MG; Start 07/04/18 at 18:30 Docusate Sodium (Colace) 100 mg Q12H PRN PO .CONSTIPATION; Start 07/04/18 at 18:30 Zolpidem Tartrate (Ambien) 5 mg QHS PRN PO .INSOMNIA; Start 07/04/18 at 18:30 Albuterol (Proventil 0.083% (Neb)) 2.5 mg Q4H RESP THERAPY PRN HHN SHORTNESS OF BREATH; Start 07/04/18 at 18:30 Metoclopramide HCl (Reglan) 5 mg Q6H PRN IV NAUSEA Last administered on 07/09/18at 00:27; Admin Dose 5 MG; Start 07/05/18 at 10:00 Acetaminophen/ Hydrocodone Bitart ([place] (5/325)) 1 tab Q4H PRN PO MODERATE PAIN LEVEL 4-6 Last administered on 07/06/18at 08:12; Admin Dose 1 TAB; Start 07/05/18 at 12:30 Midodrine (Proamatine) 10 mg TID PO Last administered on 07/10/18 09:00; Admin Dose 10 MG; Start 07/06/18 at 09:00 Albuterol (Ventolin Hfa) 2 puff Q4 INH Last administered on 07/10/18 05:44; Admin Dose 2 PUFF; Start 07/06/18 at 04:30 Acetaminophen/ Hydrocodone Bitart ([place] (5/325)) 1 tab Q6H PRN PO PAIN Last administered on 07/07/18 11:39; Admin Dose 1 TAB; Start 07/06/18 at 04:00 Ondansetron HCl (Zofran Odt) 4 mg Q6H PRN ODT NAUSEA AND/OR VOMITING; Start 07/06/18 at 04:00 Pantoprazole (Protonix Tab) 40 mg BID@0600,1800 PO Last administered on 07/10/18 05:44; Admin Dose 40 MG; Start 07/06/18 at 06:00 Norepinephrine 250 ml @ 1.875 mls/ hr TITRATE IV ; Start 07/06/18 at 10:28 Tramadol HCl (Ultram) 100 mg Q4H PRN PO SEVERE PAIN LEVEL 7-10 Last administered on 07/08/18 01:26; Admin Dose 100 MG; Start 07/06/18 at 11:00 Ceftriaxone Sodium 50 ml @ 100 mls/hr Q24H IVPB Last administered on 07/09/18 16:14; Admin Dose 100 MLS/HR; Start 07/06/18 at 16:30 Morphine Sulfate (morphine) 6 mg Q4H PRN PO SEVERE PAIN LEVEL 7-10 Last administered on 07/10/18 09:09; Admin Dose 6 MG; Start 07/06/18 at 22:00 Vancomycin HCl (Vancomycin Oral Syringe) 125 mg Q6 PO Last administered on 07/10/18 05:44; Admin Dose 125 MG; Start 07/07/18 at 18:00 Doxycycline Hyclate 100 mg/ Sodium Chloride 250 ml @ 250 mls/hr Q12 IVPB Last administered on 07/10/18 08:59; Admin Dose 250 MLS/HR; Start 07/08/18 at 21:00 Lactulose (Enulose) 10 gm BID PO Last administered on 07/10/18 08:56; Admin Dose 10 GM; Start 07/09/18 at 11:00 Rifaximin (Xifaxan) 200 mg TID PO Last administered on 07/10/18at 09:00; Admin Dose 200 MG; Start 07/09/18 at 21:00 ANA SPICER Jul 10, 2018 12:13
--- NOTE | 2018-07-10 13:34 | CONS ---
Assessment/Plan Assessment/Plan Hospital Course (Demo Recall) ID PROGRESS NOTE CURRENT ABX: DAY # => Doxycycline IV + Ceftriaxone + Vanco Liq PO + Rifaximin 07/10/18 0626 07/10/18 0625 24H INTERVAL SUMMARY * Clinically status quo -- Awake, alert, still reporting c/o severe pain in LLEXT which has DSG C/D/I * WBC elevated due to acute C.Diff Colitis, no fevers, VSS * Per notes -- intermittent agitation MICRO/OTHER * 07/07/18 (+)C.Diff * 07/06/18 Urine (-) * 07/04/18 BCx (+) GNR BLOOD CULTURE Final Organism 1 K.PNEUMONIAE SSP PNEUMONIAE K PNE SPP M.I.C. RX --------- --- CEFAZOLIN I CEFOTAXIME S CIPROFLOXACIN <=0.25 S GENTAMICIN <=1 S LEVOFLOXACIN <=0.12 S TOBRAMYCIN <=1 S TRIMETHOPRIM/SULFAMETHOXAZOLE <=20 S PHYSICAL EXAMINATION: GENERAL: Afebrile, VSS -- c/o severe LLEXT Pain HEENT: AT, NC, anicteric NECK: Supple, trach midline CHEST: Equal chest rise bilaterally, without dyspnea on observation HEART: Pulse RRR ABDOMEN: Distended EXTREMITIES: Warm, dry - LLEXT SHIRLEY wrapped SKIN: No rash, no diaphoresis ID ASSESSMENT 48 yo F admit with: 1. GNR Sepsis on admission w/lactic acidosis + BCx (+)GNR Kleb Pneumoniae * Leukocytosis due to C.Diff recurrence 2. Acute cellulitis LLEXT 3. ETOH Cirrhosis with persistent ascites and encephalopathy - improved w/lactulose * Status post paracentesis in the ER * Patient is on the transplant list 4. Recurrent C.Diff colitis 5. Oliguric acute kidney injury = improved (-)MRSA Nares ABX ALLERGIES: KNDA INVASIVES: PIV CURRENT ABX: DAY # => Doxycycline IV + Ceftriaxone + Vanco Liq PO + Rifaximin ID RECOMMENDATIONS/PLAN: 1. Continue current ABX + Added Rifaxamin due to combo Dx Ascites/encephalopathy + C.Diff Diarrhea 2. Avoid renal toxic ABX . Consultation Date/Type/Reason Admit Date/Time Jul 04, 2018 at 14:22 Initial Consult Date 07/07/18 Requesting Provider: ANA SPICER Date/Time of Note DATE: 07/10/18 TIME: 13:29 Exam/Review of Systems Exam Vitals Vital Signs Date Temp Pulse Resp B/P (MAP) Pulse Ox O2 O2 Flow FiO2 Time Delivery Rate 07/10/18 95 12:00 07/10/18 98.6 18 108/61 99 11:51 (77) 07/09/18 Room Air 11:27 Intake and Output 07/09/18 07/09/18 07/10/18 1515:00 23:00 07:00 IntakeIntake Total 250 ml 410 ml 160 ml OutputOutput Total 400 ml 400 ml BalanceBalance 250 ml 10 ml -240 ml Results Result Diagram: 07/10/18 0626 07/10/18 0625 Results 24hrs Laboratory Tests Test 07/10/18 06:25 07/10/18 06:26 Sodium Level 131 L Potassium Level 4.9 Chloride Level 101 Carbon Dioxide Level 20 L Anion Gap 10 # Blood Urea Nitrogen 37 H Creatinine 0.99 Est Glomerular Filtrat Rate mL/min 60 Glucose Level 72 Calcium Level 8.4 Magnesium Level 2.2 White Blood Count 17.4 H Red Blood Count 2.05 L Hemoglobin 7.1 L Hematocrit 22.1 L Mean Corpuscular Volume 107.8 H Mean Corpuscular Hemoglobin 34.6 H Mean Corpuscular Hemoglobin Concent 32.1 Red Cell Distribution Width 17.4 H Platelet Count 71 L Mean Platelet Volume 8.9 Immature Granulocytes % 6.000 H Neutrophils % Segmented Neutrophils % (Manual) 76 Band Neutrophils % (Manual) 3 Lymphocytes % Lymphocytes % (Manual) 7 L Monocytes % Monocytes % (Manual) 9 Eosinophils % Basophils % Metamyelocytes % (manual) 2 H Myelocytes % (Manual) 1 H Promyelocytes % (Manual) 2 H Nucleated Red Blood Cells % 0.0 Immature Granulocytes # 1.040 H Neutrophils # Neutrophils # (Manual) 13.3 H Band Neutrophils # 0.5 Lymphocytes (Manual) 1.2 Lymphocytes # Monocytes # Monocytes # (Manual) 1.5 H Eosinophils # Basophils # Metamyelocytes # 0.3 H Myelocytes # 0.1 H Promyelocytes # 0.3 H Nucleated Red Blood Cells # Toxic Granulation 1+ Platelet Estimate SIG DECREASED Polychromasia 1+ Poikilocytosis 1+ Anisocytosis 1+ Macrocytosis 1+ Medications Medication Current Medications IV Flush (NS 3 ml) 3 ml PER PROTOCOL IV ; Start 07/04/18 at 18:30 Ondansetron HCl (Zofran Inj) 4 mg Q6H PRN IV NAUSEA/VOMITING Last administered on 07/09/18 00:28; Admin Dose 4 MG; Start 07/04/18 at 18:30 Docusate Sodium (Colace) 100 mg Q12H PRN PO .CONSTIPATION; Start 07/04/18 at 18:30 Zolpidem Tartrate (Ambien) 5 mg QHS PRN PO .INSOMNIA; Start 07/04/18 at 18:30 Albuterol (Proventil 0.083% (Neb)) 2.5 mg Q4H RESP THERAPY PRN HHN SHORTNESS OF BREATH; Start 07/04/18 at 18:30 Metoclopramide HCl (Reglan) 5 mg Q6H PRN IV NAUSEA Last administered on 07/09/18at 00:27; Admin Dose 5 MG; Start 07/05/18 at 10:00 Acetaminophen/ Hydrocodone Bitart ([place] (5/325)) 1 tab Q4H PRN PO MODERATE PAIN LEVEL 4-6 Last administered on 07/06/18at 08:12; Admin Dose 1 TAB; Start 07/05/18 at 12:30 Midodrine (Proamatine) 10 mg TID PO Last administered on 07/10/18 12:30; Admin Dose 10 MG; Start 07/06/18 at 09:00 Albuterol (Ventolin Hfa) 2 puff Q4 INH Last administered on 07/10/18 05:44; Admin Dose 2 PUFF; Start 07/06/18 at 04:30 Acetaminophen/ Hydrocodone Bitart ([place] (5/325)) 1 tab Q6H PRN PO PAIN Last administered on 07/07/18at 11:39; Admin Dose 1 TAB; Start 07/06/18 at 04:00 Ondansetron HCl (Zofran Odt) 4 mg Q6H PRN ODT NAUSEA AND/OR VOMITING; Start 07/06/18 at 04:00 Pantoprazole (Protonix Tab) 40 mg BID@0600,1800 PO Last administered on 07/10/18 05:44; Admin Dose 40 MG; Start 07/06/18 at 06:00 Norepinephrine 250 ml @ 1.875 mls/ hr TITRATE IV ; Start 07/06/18 at 10:28 Tramadol HCl (Ultram) 100 mg Q4H PRN PO SEVERE PAIN LEVEL 7-10 Last administered on 07/08/18 01:26; Admin Dose 100 MG; Start 07/06/18 at 11:00 Ceftriaxone Sodium 50 ml @ 100 mls/hr Q24H IVPB Last administered on 07/09/18 16:14; Admin Dose 100 MLS/HR; Start 07/06/18 at 16:30 Morphine Sulfate (morphine) 6 mg Q4H PRN PO SEVERE PAIN LEVEL 7-10 Last administered on 07/10/18 09:09; Admin Dose 6 MG; Start 07/06/18 at 22:00 Vancomycin HCl (Vancomycin Oral Syringe) 125 mg Q6 PO Last administered on 07/10/18 12:33; Admin Dose 125 MG; Start 07/07/18 at 18:00 Doxycycline Hyclate 100 mg/ Sodium Chloride 250 ml @ 250 mls/hr Q12 IVPB Last administered on 07/10/18 08:59; Admin Dose 250 MLS/HR; Start 07/08/18 at 21:00 Lactulose (Enulose) 10 gm BID PO Last administered on 07/10/18 08:56; Admin Dose 10 GM; Start 07/09/18 at 11:00 Rifaximin (Xifaxan) 200 mg TID PO Last administered on 07/10/18 12:30; Admin Dose 200 MG; Start 07/09/18 at 21:00 CHRIS BOWEN NP Jul 10, 2018 13:34
[2018-07-10] MEDS: CEFTRIAXONE 1 GM/50 ML (PMX) 50 ML IVPB SCH (18:01)
[2018-07-11] VITALS (11 sets, daily range): BP systolic 92–110; BP diastolic 50–61; PULSE 79–92; RESP 18
[2018-07-11] MEDS: ALBUTEROL HFA 8 GM INHALER INH SCH ×6 (02:37→21:00)
[2018-07-11] MEDS: VANCOMYCIN HCL 250 MG/5ML POSYG PO SCH ×4 (06:30→23:28)
[2018-07-11] MEDS: PANTOPRAZOLE (EC) 40 MG TAB PO SCH ×2 (06:30→17:36)
[2018-07-11] MEDS: HYDROCODONE/APAP (5/325) TAB PO PRN ×4 (06:39→23:08)
[2018-07-11] MEDS: LACTULOSE 30ML CUP PO SCH ×2 (08:38→21:00)
[2018-07-11] MEDS: MIDODRINE 5 MG TAB PO SCH ×3 (08:39→21:40)
[2018-07-11] MEDS: RIFAXIMIN 200 MG TAB PO SCH ×3 (08:39→21:40)
[2018-07-11] MEDS: DOXYCYCLINE 100 MG in SOD CHLORIDE 0.9% 250 ML IVPB SCH ×2 (08:57→21:39)
--- NOTE | 2018-07-11 13:14 | CONS ---
Assessment/Plan Assessment/Plan Hospital Course (Demo Recall) Patient is alert in no distress, no fevers. WBC 15.4 Microbiology: Blood culture grew Klebsiella pneumonia on July 04 susceptible to Cipro and Levaquin, stool for C. difficile positive, urine culture negative MRSA swab negative Antimicrobials: Rocephin,Doxycycline, oral vancomycin Physical examination: Chronically ill-appearing middle-aged woman who is in no distress. Head atraumatic normocephalic sclera nonicteric vehicle mucosa dry neck is supple chest rise symmetrical breath sounds diminished at bases. Heart: S1-S2. Abdomen soft bowel sounds present extremities with bilateral edema, left lower extremity dressing intact Assessment: 1. Sepsis with Klebsiella pneumonia bacteremia likely secondary to SBP 2. Left lower extremity cellulitis 3. C. difficile colitis 4. Alcoholic liver cirrhosis 5. Recurrent ascites 6. Anemia and thrombocytopenia Plan: Stable, repeat blood cultures neg, consider repeat paracentesis with fluid cx Consultation Date/Type/Reason Admit Date/Time Jul 04, 2018 at 14:22 Initial Consult Date 07/07/18 Type of Consult id Requesting Provider: ANA SPICER Date/Time of Note DATE: 07/11/18 TIME: 13:11 Exam/Review of Systems Exam Vitals Vital Signs Date Temp Pulse Resp B/P (MAP) Pulse Ox O2 O2 Flow FiO2 Time Delivery Rate 07/11/18 87 12:12 07/11/18 98.0 18 101/57 98 11:45 (72) 07/09/18 Room Air 11:27 Intake and Output 07/10/18 07/10/18 07/11/18 1515:00 23:00 07:00 IntakeIntake Total 550 ml 500 ml OutputOutput Total 600 ml 700 ml BalanceBalance -50 ml -200 ml Results Result Diagram: 07/11/18 0559 07/11/18 0559 Results 24hrs Laboratory Tests Test 07/11/18 05:59 White Blood Count 15.4 H Red Blood Count 2.12 L Hemoglobin 7.4 L Hematocrit 23.1 L Mean Corpuscular Volume 109.0 H Mean Corpuscular Hemoglobin 34.9 H Mean Corpuscular Hemoglobin Concent 32.0 Red Cell Distribution Width 17.7 H Platelet Count 63 L Mean Platelet Volume 8.6 Immature Granulocytes % 6.200 H Neutrophils % Segmented Neutrophils % (Manual) 76 Lymphocytes % Lymphocytes % (Manual) 7 L Monocytes % Monocytes % (Manual) 8 Eosinophils % Eosinophils % (Manual) 2 Basophils % Metamyelocytes % (manual) 2 H Myelocytes % (Manual) 5 H Nucleated Red Blood Cells % 0.0 Immature Granulocytes # 0.960 H Neutrophils # Lymphocytes (Manual) 1.0 Lymphocytes # Monocytes # Monocytes # (Manual) 1.2 H Eosinophils # Basophils # Metamyelocytes # 0.3 H Myelocytes # 0.7 H Nucleated Red Blood Cells # Platelet Estimate DECREASED Polychromasia 3+ Poikilocytosis 1+ Anisocytosis 1+ Macrocytosis 1+ Sodium Level 132 L Potassium Level 4.0 Chloride Level 101 Carbon Dioxide Level 21 Anion Gap 10 Blood Urea Nitrogen 30 H Creatinine 0.71 Est Glomerular Filtrat Rate mL/min > 60 Glucose Level 138 # Calcium Level 8.3 L Magnesium Level 2.1 Ammonia < 9 #L Medications Medication Current Medications IV Flush (NS 3 ml) 3 ml PER PROTOCOL IV ; Start 07/04/18 at 18:30 Ondansetron HCl (Zofran Inj) 4 mg Q6H PRN IV NAUSEA/VOMITING Last administered on 07/09/18at 00:28; Admin Dose 4 MG; Start 07/04/18 at 18:30 Docusate Sodium (Colace) 100 mg Q12H PRN PO .CONSTIPATION; Start 07/04/18 at 18:30 Zolpidem Tartrate (Ambien) 5 mg QHS PRN PO .INSOMNIA; Start 07/04/18 at 18:30 Albuterol (Proventil 0.083% (Neb)) 2.5 mg Q4H RESP THERAPY PRN HHN SHORTNESS OF BREATH; Start 07/04/18 at 18:30 Metoclopramide HCl (Reglan) 5 mg Q6H PRN IV NAUSEA Last administered on 07/09/18at 00:27; Admin Dose 5 MG; Start 07/05/18 at 10:00 Acetaminophen/ Hydrocodone Bitart ([place] (5/325)) 1 tab Q4H PRN PO MODERATE PAIN LEVEL 4-6 Last administered on 07/11/18at 11:14; Admin Dose 1 TAB; Start 07/05/18 at 12:30 Midodrine (Proamatine) 10 mg TID PO Last administered on 07/11/18at 12:11; Admin Dose 10 MG; Start 07/06/18 at 09:00 Albuterol (Ventolin Hfa) 2 puff Q4 INH Last administered on 07/11/18 12:10; Admin Dose 2 PUFF; Start 07/06/18 at 04:30 Acetaminophen/ Hydrocodone Bitart ([place] (5/325)) 1 tab Q6H PRN PO PAIN Last administered on 07/07/18 11:39; Admin Dose 1 TAB; Start 07/06/18 at 04:00 Ondansetron HCl (Zofran Odt) 4 mg Q6H PRN ODT NAUSEA AND/OR VOMITING; Start 07/06/18 at 04:00 Pantoprazole (Protonix Tab) 40 mg BID@0600,1800 PO Last administered on 07/11/18 06:30; Admin Dose 40 MG; Start 07/06/18 at 06:00 Norepinephrine 250 ml @ 1.875 mls/ hr TITRATE IV ; Start 07/06/18 at 10:28 Tramadol HCl (Ultram) 100 mg Q4H PRN PO SEVERE PAIN LEVEL 7-10 Last administered on 07/08/18 01:26; Admin Dose 100 MG; Start 07/06/18 at 11:00 Ceftriaxone Sodium 50 ml @ 100 mls/hr Q24H IVPB Last administered on 07/10/18 18:01; Admin Dose 100 MLS/HR; Start 07/06/18 at 16:30 Morphine Sulfate (morphine) 6 mg Q4H PRN PO SEVERE PAIN LEVEL 7-10 Last administered on 07/10/18 18:01; Admin Dose 6 MG; Start 07/06/18 at 22:00 Vancomycin HCl (Vancomycin Oral Syringe) 125 mg Q6 PO Last administered on 07/11/18 11:14; Admin Dose 125 MG; Start 07/07/18 at 18:00 Doxycycline Hyclate 100 mg/ Sodium Chloride 250 ml @ 250 mls/hr Q12 IVPB Last administered on 07/11/18 08:57; Admin Dose 250 MLS/HR; Start 07/08/18 at 21:00 Lactulose (Enulose) 10 gm BID PO Last administered on 07/10/18 21:21; Admin Dose 10 GM; Start 07/09/18 at 11:00 Rifaximin (Xifaxan) 200 mg TID PO Last administered on 2/4/19at 12:11; Admin Dose 200 MG; Start 07/09/18 at 21:00 EMA MUELLER NP Jul 11, 2018 13:14
--- NOTE | 2018-07-11 14:25 | PN ---
Date/Time of Note Date/Time of Note DATE: 07/11/18 TIME: 14:23 Assessment/Plan VTE Prophylaxis Risk score (from Ns)>0 risk: 6 SCD applied (from Ns): Yes Pharmacological prophylaxis: heparin Lines/Catheters IV C[facility]ter Type [facility]from [facility]): Peripheral IV Urinary Cath still in place: No Assessment/Plan Hospital Course 48 yo female with cirrhosis, sepsis, cellulitis - Abx per ID - resume diuretics - PATTIE is resolved - rifaxamin/lactulose Result Diagram: 07/11/18 0559 07/11/18 0559 Results 24hrs Laboratory Tests Test 07/11/18 05:59 White Blood Count 15.4 H Red Blood Count 2.12 L Hemoglobin 7.4 L Hematocrit 23.1 L Mean Corpuscular Volume 109.0 H Mean Corpuscular Hemoglobin 34.9 H Mean Corpuscular Hemoglobin Concent 32.0 Red Cell Distribution Width 17.7 H Platelet Count 63 L Mean Platelet Volume 8.6 Immature Granulocytes % 6.200 H Neutrophils % Segmented Neutrophils % (Manual) 76 Lymphocytes % Lymphocytes % (Manual) 7 L Monocytes % Monocytes % (Manual) 8 Eosinophils % Eosinophils % (Manual) 2 Basophils % Metamyelocytes % (manual) 2 H Myelocytes % (Manual) 5 H Nucleated Red Blood Cells % 0.0 Immature Granulocytes # 0.960 H Neutrophils # Lymphocytes (Manual) 1.0 Lymphocytes # Monocytes # Monocytes # (Manual) 1.2 H Eosinophils # Basophils # Metamyelocytes # 0.3 H Myelocytes # 0.7 H Nucleated Red Blood Cells # Platelet Estimate DECREASED Polychromasia 3+ Poikilocytosis 1+ Anisocytosis 1+ Macrocytosis 1+ Sodium Level 132 L Potassium Level 4.0 Chloride Level 101 Carbon Dioxide Level 21 Anion Gap 10 Blood Urea Nitrogen 30 H Creatinine 0.71 Est Glomerular Filtrat Rate mL/min > 60 Glucose Level 138 # Calcium Level 8.3 L Magnesium Level 2.1 Ammonia < 9 #L Subjective 24 Hr Interval Summary Free Text/Dictation Tearful, obviously quiet sad about her station in life. Wants to go to [place] at discharge not home Exam/Review of Systems Exam Vitals Vital Signs Date Temp Pulse Resp B/P (MAP) Pulse Ox O2 O2 Flow FiO2 Time Delivery Rate 07/11/18 87 12:12 07/11/18 98.0 18 101/57 98 11:45 (72) 07/09/18 Room Air 11:27 Intake and Output 07/10/18 07/10/18 07/11/18 1515:00 23:00 07:00 IntakeIntake Total 550 ml 500 ml OutputOutput Total 600 ml 700 ml BalanceBalance -50 ml -200 ml Constitutional: alert, oriented, well developed Psych: no complaints, nl mood/affect Head: normocephalic, atraumatic Eyes: nl conjunctiva, EOMI, nl lids, nl sclera, PERRL ENMT: nl external ears & nose, nl lips & teeth, nl nasal mucosa & septum Neck: supple, non-tender Respiratory: clear to auscultation, normal air movement Cardiovascular: regular rate and rhythm, nl pulses Gastrointestinal: soft, nl liver, spleen, non-tender Musculoskeletal: nl extremities to inspection, nl gait and stance Extremities: normal pulses 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: PL[employer] II-XII intact, nl mental status, nl speech, nl strength Skin: nl turgor; No rash or lesions Lymph: nl lymph nodes Results Results 24hrs Laboratory Tests Test 07/11/18 05:59 White Blood Count 15.4 H Red Blood Count 2.12 L Hemoglobin 7.4 L Hematocrit 23.1 L Mean Corpuscular Volume 109.0 H Mean Corpuscular Hemoglobin 34.9 H Mean Corpuscular Hemoglobin Concent 32.0 Red Cell Distribution Width 17.7 H Platelet Count 63 L Mean Platelet Volume 8.6 Immature Granulocytes % 6.200 H Neutrophils % Segmented Neutrophils % (Manual) 76 Lymphocytes % Lymphocytes % (Manual) 7 L Monocytes % Monocytes % (Manual) 8 Eosinophils % Eosinophils % (Manual) 2 Basophils % Metamyelocytes % (manual) 2 H Myelocytes % (Manual) 5 H Nucleated Red Blood Cells % 0.0 Immature Granulocytes # 0.960 H Neutrophils # Lymphocytes (Manual) 1.0 Lymphocytes # Monocytes # Monocytes # (Manual) 1.2 H Eosinophils # Basophils # Metamyelocytes # 0.3 H Myelocytes # 0.7 H Nucleated Red Blood Cells # Platelet Estimate DECREASED Polychromasia 3+ Poikilocytosis 1+ Anisocytosis 1+ Macrocytosis 1+ Sodium Level 132 L Potassium Level 4.0 Chloride Level 101 Carbon Dioxide Level 21 Anion Gap 10 Blood Urea Nitrogen 30 H Creatinine 0.71 Est Glomerular Filtrat Rate mL/min > 60 Glucose Level 138 # Calcium Level 8.3 L Magnesium Level 2.1 Ammonia < 9 #L Medications Medication Current Medications IV Flush (NS 3 ml) 3 ml PER PROTOCOL IV ; Start 07/04/18 at 18:30 Ondansetron HCl (Zofran Inj) 4 mg Q6H PRN IV NAUSEA/VOMITING Last administered on 07/09/18 00:28; Admin Dose 4 MG; Start 07/04/18 at 18:30 Docusate Sodium (Colace) 100 mg Q12H PRN PO .CONSTIPATION; Start 07/04/18 at 18:30 Zolpidem Tartrate (Ambien) 5 mg QHS PRN PO .INSOMNIA; Start 07/04/18 at 18:30 Albuterol (Proventil 0.083% (Neb)) 2.5 mg Q4H RESP THERAPY PRN HHN SHORTNESS OF BREATH; Start 07/04/18 at 18:30 Metoclopramide HCl (Reglan) 5 mg Q6H PRN IV NAUSEA Last administered on 07/09/18 00:27; Admin Dose 5 MG; Start 07/05/18 at 10:00 Acetaminophen/ Hydrocodone Bitart ([place] (5/325)) 1 tab Q4H PRN PO MODERATE PAIN LEVEL 4-6 Last administered on 07/11/18 11:14; Admin Dose 1 TAB; Start 07/05/18 at 12:30 Midodrine (Proamatine) 10 mg TID PO Last administered on 07/11/18 12:11; Admin Dose 10 MG; Start 07/06/18 at 09:00 Albuterol (Ventolin Hfa) 2 puff Q4 INH Last administered on 07/11/18 12:10; Admin Dose 2 PUFF; Start 07/06/18 at 04:30 Acetaminophen/ Hydrocodone Bitart ([place] (5/325)) 1 tab Q6H PRN PO PAIN Last administered on 07/07/18 11:39; Admin Dose 1 TAB; Start 07/06/18 at 04:00 Ondansetron HCl (Zofran Odt) 4 mg Q6H PRN ODT NAUSEA AND/OR VOMITING; Start 07/06/18 at 04:00 Pantoprazole (Protonix Tab) 40 mg BID@0600,1800 PO Last administered on 07/11/18 06:30; Admin Dose 40 MG; Start 07/06/18 at 06:00 Norepinephrine 250 ml @ 1.875 mls/ hr TITRATE IV ; Start 07/06/18 at 10:28 Tramadol HCl (Ultram) 100 mg Q4H PRN PO SEVERE PAIN LEVEL 7-10 Last administered on 07/08/18 01:26; Admin Dose 100 MG; Start 07/06/18 at 11:00 Ceftriaxone Sodium 50 ml @ 100 mls/hr Q24H IVPB Last administered on 07/10/18 18:01; Admin Dose 100 MLS/HR; Start 07/06/18 at 16:30 Morphine Sulfate (morphine) 6 mg Q4H PRN PO SEVERE PAIN LEVEL 7-10 Last administered on 07/10/18 18:01; Admin Dose 6 MG; Start 07/06/18 at 22:00 Vancomycin HCl (Vancomycin Oral Syringe) 125 mg Q6 PO Last administered on 07/11/18 11:14; Admin Dose 125 MG; Start 07/07/18 at 18:00 Doxycycline Hyclate 100 mg/ Sodium Chloride 250 ml @ 250 mls/hr Q12 IVPB Last administered on 07/11/18 08:57; Admin Dose 250 MLS/HR; Start 07/08/18 at 21:00 Lactulose (Enulose) 10 gm BID PO Last administered on 07/10/18 21:21; Admin Dose 10 GM; Start 07/09/18 at 11:00 Rifaximin (Xifaxan) 200 mg TID PO Last administered on 07/11/18 12:11; Admin Dose 200 MG; Start 07/09/18 at 21:00 MARIA DEL CARMEN BENITES MD Jul 11, 2018 14:25
[2018-07-11] MEDS: CEFTRIAXONE 1 GM/50 ML (PMX) 50 ML IVPB SCH (15:35)
--- NOTE | 2018-07-11 15:52 | CONS ---
Assessment/Plan Assessment/Plan Assessment/Plan 48 yo Female with 1) DEBRA in the setting of Sepsis and hemodynamic changes, HRS, More Likely Pre- renal azotemia and Intravascular Volume Depletion, Not ATN 2) Hyponatremia in Chronic Liver disease, S/p Paracentesis 3) Hyperkalemia Resolved 4) CDiff Diarrhea 5) Lower extremity Cellulitis 6) Abdominal Pain Renal function continues to improved. Cont current Rx and plan Hold diuretic at this time Will need to restart once Debra resolved Prevously: Urine Na <15, Pre Renal Picture, Stable S/p Albumin Low K diet Kayexalate PRN For K+>5.5 Pt is already on Transplant list at [facility] No acute indication for HD at this time Will cont to closely follow along with you Do not hesitate to contact me if you have any questions or concerns. Consultation Date/Type/Reason Admit Date/Time Jul 04, 2018 at 14:22 Type of Consult Neurology Requesting Provider: ANA SPICER Date/Time of Note DATE: 07/11/18 TIME: 15:51 Exam Vital Signs Vitals Vital Signs Date Temp Pulse Resp B/P (MAP) Pulse Ox O2 O2 Flow FiO2 Time Delivery Rate 07/11/18 87 12:12 07/11/18 98.0 18 101/57 98 11:45 (72) 07/09/18 Room Air 11:27 Intake and Output 07/10/18 07/10/18 07/11/18 1515:00 23:00 07:00 IntakeIntake Total 550 ml 500 ml OutputOutput Total 600 ml 700 ml BalanceBalance -50 ml -200 ml Exam Constitutional: No distress Respiratory: No labored breathing Cardiovascular: edema Gastrointestinal: ascites, distended 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: lethargic Skin: No diaphoresis PARRIS THOMAS MD Jul 11, 2018 15:52
[2018-07-12] VITALS (11 sets, daily range): BP systolic 98–108; BP diastolic 53–57; PULSE 53–94; RESP 16–18
[2018-07-12] MEDS: ALBUTEROL HFA 8 GM INHALER INH SCH ×6 (01:00→21:29)
[2018-07-12] MEDS: morphine LIQ (10 MG/5 ML) CUP PO PRN (04:55)
[2018-07-12] MEDS: PANTOPRAZOLE (EC) 40 MG TAB PO SCH ×2 (05:52→17:14)
[2018-07-12] MEDS: VANCOMYCIN HCL 250 MG/5ML POSYG PO SCH ×4 (05:52→23:29)
[2018-07-12] MEDS: traMADol 50 MG TAB PO PRN ×3 (06:03→19:58)
[2018-07-12] MEDS: FUROSEMIDE 40 MG TAB PO SCH (08:53)
[2018-07-12] MEDS: SPIRONOLACTONE 50 MG TAB PO SCH (08:53)
[2018-07-12] MEDS: RIFAXIMIN 200 MG TAB PO SCH ×3 (08:53→21:28)
[2018-07-12] MEDS: MIDODRINE 5 MG TAB PO SCH ×3 (08:53→21:29)
[2018-07-12] MEDS: LACTULOSE 30ML CUP PO SCH ×2 (08:54→21:28)
[2018-07-12] MEDS: HYDROCODONE/APAP (5/325) TAB PO PRN (09:10)
[2018-07-12] MEDS: DOXYCYCLINE 100 MG in SOD CHLORIDE 0.9% 250 ML IVPB SCH ×2 (09:11→21:28)
--- NOTE | 2018-07-12 13:36 | PN ---
Date/Time of Note Date/Time of Note DATE: 07/12/18 TIME: 13:34 Assessment/Plan VTE Prophylaxis Risk score (from Ns)>0 risk: 5 SCD applied (from Ns): Yes Pharmacological prophylaxis: heparin Lines/Catheters IV Catheter Type (from Nrsg): Peripheral IV Urinary Cath still in place: No Assessment/Plan Hospital Course 48 yo female with cirrhosis, sepsis 2/2 cellulitis and large foot wound Foot wound - Abx per ID - Podiatry to consult Cirrhosis: - resume diuretics - PATTIE is resolved - Paracentesis if needed as an outpatinet - rifaxamin/lactulose PT/OT DIscharge to SNF Result Diagram: 07/11/1859 07/11/18 0559 Subjective 24 Hr Interval Summary Free Text/Dictation She feels more emotionally well today. Also less lethargy Major complaint is of L foot wound Exam/Review of Systems Exam Vitals Vital Signs Date Temp Pulse Resp B/P (MAP) Pulse Ox O2 O2 Flow FiO2 Time Delivery Rate 07/12/18 98.0 63 18 105/57 98 12:23 (73) 07/09/18 Room Air 11:27 Intake and Output 07/11/18 07/11/18 07/12/18 1515:00 23:00 07:00 IntakeIntake Total 250 ml 850 ml 1000 ml OutputOutput Total 510 ml 700 ml BalanceBalance 250 ml 340 ml 300 ml Exam Mild jaundice No sign of HE, AOx3 RRR CTAB Abd soft nt mildly disended Legs without edema L foot with large ulceration over dorsal surface with exudate Medications Medication Current Medications IV Flush (NS 3 ml) 3 ml PER PROTOCOL IV ; Start 07/04/18 at 18:30 Ondansetron HCl (Zofran Inj) 4 mg Q6H PRN IV NAUSEA/VOMITING Last administered on 07/09/18at 00:28; Admin Dose 4 MG; Start 07/04/18 at 18:30 Docusate Sodium (Colace) 100 mg Q12H PRN PO .CONSTIPATION; Start 07/04/18 at 18:30 Zolpidem Tartrate (Ambien) 5 mg QHS PRN PO .INSOMNIA; Start 07/04/18 at 18:30 Albuterol (Proventil 0.083% (Neb)) 2.5 mg Q4H RESP THERAPY PRN HHN SHORTNESS OF BREATH; Start 07/04/18 at 18:30 Metoclopramide HCl (Reglan) 5 mg Q6H PRN IV NAUSEA Last administered on 07/09/18 00:27; Admin Dose 5 MG; Start 07/05/18 at 10:00 Acetaminophen/ Hydrocodone Bitart ([place] (5/325)) 1 tab Q4H PRN PO MODERATE PAIN LEVEL 4-6 Last administered on 07/12/18 09:10; Admin Dose 1 TAB; Start 07/05/18 at 12:30 Midodrine (Proamatine) 10 mg TID PO Last administered on 07/12/18 12:10; Admin Dose 10 MG; Start 07/06/18 at 09:00 Albuterol (Ventolin Hfa) 2 puff Q4 INH Last administered on 07/12/18 12:10; Admin Dose 2 PUFF; Start 07/06/18 at 04:30 Acetaminophen/ Hydrocodone Bitart ([place] (5/325)) 1 tab Q6H PRN PO PAIN Last administered on 07/07/18 11:39; Admin Dose 1 TAB; Start 07/06/18 at 04:00 Ondansetron HCl (Zofran Odt) 4 mg Q6H PRN ODT NAUSEA AND/OR VOMITING; Start 07/06/18 at 04:00 Pantoprazole (Protonix Tab) 40 mg BID@0600,1800 PO Last administered on 07/12/18 05:52; Admin Dose 40 MG; Start 07/06/18 at 06:00 Norepinephrine 250 ml @ 1.875 mls/ hr TITRATE IV ; Start 07/06/18 at 10:28 Tramadol HCl (Ultram) 100 mg Q4H PRN PO SEVERE PAIN LEVEL 7-10 Last administered on 07/12/18 06:03; Admin Dose 100 MG; Start 07/06/18 at 11:00 Ceftriaxone Sodium 50 ml @ 100 mls/hr Q24H IVPB Last administered on 07/11/18 15:35; Admin Dose 100 MLS/HR; Start 07/06/18 at 16:30 Morphine Sulfate (morphine) 6 mg Q4H PRN PO SEVERE PAIN LEVEL 7-10 Last administered on 07/12/18 04:55; Admin Dose 6 MG; Start 07/06/18 at 22:00 Vancomycin HCl (Vancomycin Oral Syringe) 125 mg Q6 PO Last administered on 07/12/18 11:47; Admin Dose 125 MG; Start 07/07/18 at 18:00 Doxycycline Hyclate 100 mg/ Sodium Chloride 250 ml @ 250 mls/hr Q12 IVPB Last administered on 07/12/18 09:11; Admin Dose 250 MLS/HR; Start 07/08/18 at 21:00 Lactulose (Enulose) 10 gm BID PO Last administered on 07/12/18 08:54; Admin Dose 10 GM; Start 07/09/18 at 11:00 Rifaximin (Xifaxan) 200 mg TID PO Last administered on 07/12/18 12:10; Admin Dose 200 MG; Start 07/09/18 at 21:00 Furosemide (Lasix) 40 mg DAILY PO Last administered on 07/12/18 08:53; Admin Dose 40 MG; Start 07/12/18 at 09:00 Spironolactone (Aldactone) 100 mg DAILY PO Last administered on 07/12/18 08:53; Admin Dose 100 MG; Start 07/12/18 at 09:00 MARIA DEL CARMEN BENITES MD Jul 12, 2018 13:36
--- NOTE | 2018-07-12 14:24 | CONS ---
Assessment/Plan Assessment/Plan Hospital Course (Demo Recall) No acute changes. Patient is alert in no distress, no fevers. Microbiology: Blood culture grew Klebsiella pneumonia on July 04 susceptible to Cipro and Levaquin, stool for C. difficile positive, urine culture negative MRSA swab negative Antimicrobials: Rocephin, Doxycycline, oral vancomycin Physical examination: Chronically ill-appearing middle-aged woman who is in no distress. Head atraumatic normocephalic sclera nonicteric vehicle mucosa dry neck is supple chest rise symmetrical breath sounds diminished at bases. Heart: S1-S2. Abdomen soft bowel sounds present extremities with bilateral edema, left lower extremity dressing intact Assessment: 1. Sepsis with Klebsiella pneumonia bacteremia likely secondary to SBP 2. Left lower extremity cellulitis 3. C. difficile colitis 4. Alcoholic liver cirrhosis 5. Recurrent ascites 6. Anemia and thrombocytopenia Plan: Remains stable, repeat blood cultures neg, continue abx, consider repeat paracentesis with fluid cx Consultation Date/Type/Reason Admit Date/Time Jul 04, 2018 at 14:22 Initial Consult Date 07/07/18 Type of Consult id Requesting Provider: ANA SPICER Date/Time of Note DATE: 07/12/18 TIME: 14:23 Exam/Review of Systems Exam Vitals Vital Signs Date Temp Pulse Resp B/P (MAP) Pulse Ox O2 O2 Flow FiO2 Time Delivery Rate 07/12/18 98.0 63 18 105/57 98 12:23 (73) 07/09/18 Room Air 11:27 Intake and Output 07/11/18 07/11/18 07/12/18 1515:00 23:00 07:00 IntakeIntake Total 250 ml 850 ml 1000 ml OutputOutput Total 510 ml 700 ml BalanceBalance 250 ml 340 ml 300 ml Results Result Diagram: 07/11/18 0559 07/11/18 0559 Medications Medication Current Medications IV Flush (NS 3 ml) 3 ml PER PROTOCOL IV ; Start 07/04/18 at 18:30 Ondansetron HCl (Zofran Inj) 4 mg Q6H PRN IV NAUSEA/VOMITING Last administered on 07/09/18at 00:28; Admin Dose 4 MG; Start 07/04/18 at 18:30 Docusate Sodium (Colace) 100 mg Q12H PRN PO .CONSTIPATION; Start 07/04/18 at 18:30 Zolpidem Tartrate (Ambien) 5 mg QHS PRN PO .INSOMNIA; Start 07/04/18 at 18:30 Albuterol (Proventil 0.083% (Neb)) 2.5 mg Q4H RESP THERAPY PRN HHN SHORTNESS OF BREATH; Start 07/04/18 at 18:30 Metoclopramide HCl (Reglan) 5 mg Q6H PRN IV NAUSEA Last administered on 07/09/18 t 00:27; Admin Dose 5 MG; Start 07/05/18 at 10:00 Midodrine (Proamatine) 10 mg TID PO Last administered on 07/12/18 12:10; Admin Dose 10 MG; Start 07/06/18 at 09:00 Albuterol (Ventolin Hfa) 2 puff Q4 INH Last administered on 07/12/18 12:10; Admin Dose 2 PUFF; Start 07/06/18 at 04:30 Ondansetron HCl (Zofran Odt) 4 mg Q6H PRN ODT NAUSEA AND/OR VOMITING; Start 07/06/18 at 04:00 Pantoprazole (Protonix Tab) 40 mg BID@0600,1800 PO Last administered on 07/12/18 05:52; Admin Dose 40 MG; Start 07/06/18 at 06:00 Tramadol HCl (Ultram) 100 mg Q4H PRN PO SEVERE PAIN LEVEL 7-10 Last administered on 07/12/18 06:03; Admin Dose 100 MG; Start 07/06/18 at 11:00 Ceftriaxone Sodium 50 ml @ 100 mls/hr Q24H IVPB Last administered on 07/11/18 15:35; Admin Dose 100 MLS/HR; Start 07/06/18 at 16:30 Vancomycin HCl (Vancomycin Oral Syringe) 125 mg Q6 PO Last administered on 07/12/18 11:47; Admin Dose 125 MG; Start 07/07/18 at 18:00 Doxycycline Hyclate 100 mg/ Sodium Chloride 250 ml @ 250 mls/hr Q12 IVPB Last administered on 07/12/18 09:11; Admin Dose 250 MLS/HR; Start 07/08/18 at 21:00 Lactulose (Enulose) 10 gm BID PO Last administered on 07/12/18 08:54; Admin Dose 10 GM; Start 07/09/18 at 11:00 Rifaximin (Xifaxan) 200 mg TID PO Last administered on 07/12/18at 12:10; Admin Dose 200 MG; Start 07/09/18 at 21:00 Furosemide (Lasix) 40 mg DAILY PO Last administered on 07/12/18at 08:53; Admin Dose 40 MG; Start 07/12/18 at 09:00 Spironolactone (Aldactone) 100 mg DAILY PO Last administered on 07/12/18 08:53; Admin Dose 100 MG; Start 07/12/18 at 09:00 EMA MUELLER NP Jul 12, 2018 14:24
[2018-07-12] MEDS: CEFTRIAXONE 1 GM/50 ML (PMX) 50 ML IVPB SCH (16:25)
--- NOTE | 2018-07-12 16:59 | CONS ---
DATE OF ADMISSION: 07/04/2018 DATE OF CONSULTATION: 07/12/2018 REASON FOR CONSULTATION: Left foot ulceration. HISTORY OF PRESENT ILLNESS: This is a 48-year-old female admitted for sepsis secondary due to left l ower extremity cellulitis. She has had infected left foot ulceration, multiple comorbidities. She h as chronic ascites and requires periodic paracentesis. The patient is currently on Rocephin, doxycyc line and oral vancomycin and using a silver collagen dressing. PAST MEDICAL HISTORY: History of alcohol cirrhosis, history of C. diff, hyperkalemia, hyperlipidemia , bipolar, PTSD, OCD. ALLERGIES: NONE. MEDICATIONS: Reviewed. REVIEW OF SYSTEMS: Bilateral foot pain, ulceration of left foot. PAST SURGICAL HISTORY: Tonsillectomy, cholecystectomy, hernia surgery, x2. SOCIAL HISTORY: Relates former smoker. PHYSICAL EXAMINATION: VITAL SIGNS: Temperature is 98, pulse is 84, respiratory rate is 18, blood pressure is 108/53, pulse ox is 98%. GENERAL: The patient awake, alert, pleasant mood. HEENT: Has jaundice. Head is normocephalic. Trachea is midline. EXTREMITIES: Bilateral lower extremity 2+ pitting edema. Cellulitis on left lower extremity. Ulcer ation in left foot measuring approximately 5 x 4 cm with necrosis of skin and subcutaneous tissue, al so extending along the extensor tendon to the 4th toe. There is ulceration near the MPJ as well as t o the anterior ankle. She does have motion with extension, flexion of the toes. No signs of pressur e sore. Pedal pulses and popliteal pulse in left lower extremity are palpable. DIAGNOSTIC DATA: Chest x-ray: There is mild cardiomegaly with aortic atherosclerosis, mild congesti ve changes. Renal ultrasound is unremarkable, moderate ascites. Venous ultrasound: Negative for de ep vein thrombosis. LABORATORIES: WBC 15.4, hemoglobin 7.4, hematocrit 23.1, platelets of 63. Sodium 132, potassium 4, chloride is 101, CO2 of 21, BUN 30, creatinine 0.7. Ammonia is less than 9. Blood cultures have no growth. Nares culture is negative for MRSA. Blood cultures positive on 07/04/2018 of Klebsiella pne umoniae. ASSESSMENT: 1. Left foot abscess with tissue necrosis, left foot. 2. Cellulitis, left lower extremity. 3. Sepsis with Klebsiella pneumoniae bacteremia. 4. Clostridium difficile colitis. 5. Alcoholic liver cirrhosis with recurrent ascites. 6. Anemia and thrombocytopenia. PLAN: The patient would benefit from surgical debridement. I discussed planned procedure, possible application of wound VAC or allograft. The patient will be kept n.p.o. Further coordination of care and scheduling is pending. The patient does have MRI of the left foot pending which would be helpfu l with surgical planning. All questions were answered to her satisfaction. The patient is currently being followed by infectious disease. Dictated By: LULU KEY DPM RB/XAVIER Conf#: [id number] DID#: [id number] CC: MONSERRAT BURGOS MD; ANA SPICER MD; MARIA DEL CARMEN BENITES MD;*End*
--- NOTE | 2018-07-12 17:27 | CONS ---
Assessment/Plan Assessment/Plan Assessment/Plan 48 yo Female with 1) PATTIE in the setting of Sepsis and hemodynamic changes, HRS, More Likely Pre- renal azotemia and Intravascular Volume Depletion, Not ATN 2) Hyponatremia in Chronic Liver disease, S/p Paracentesis 3) Hyperkalemia Resolved 4) CDiff Diarrhea 5) Lower extremity Cellulitis 6) Abdominal Pain Renal function stable, PATTIE resolved. Restarted on Diuretic Rx's, including aldactone Will need to monitor renal function and especially K + Level Repeat BMP in am Low K and Hepatic Diet requested Prevously: Urine Na <15, Pre Renal Picture, Stable S/p Albumin Low K diet Kayexalate PRN For K+>5.5 Pt is already on Transplant list at [facility] No acute indication for HD at this time Will cont to closely follow along with you Do not hesitate to contact me if you have any questions or concerns. Consultation Date/Type/Reason Admit Date/Time Jul 04, 2018 at 14:22 Type of Consult Nephrology Date/Time of Note DATE: 07/12/18 TIME: 17:25 Constitutional: No requiring O2 Respiratory: other (no labored) Exam/Review of Systems Vital Signs Vitals Vital Signs Date Temp Pulse Resp B/P (MAP) Pulse Ox O2 O2 Flow FiO2 Time Delivery Rate 07/12/18 98.0 84 18 108/53 98 16:08 (71) 07/09/18 Room Air 11:27 Intake and Output 07/11/18 07/11/18 07/12/18 1515:00 23:00 07:00 IntakeIntake Total 250 ml 850 ml 1000 ml OutputOutput Total 510 ml 700 ml BalanceBalance 250 ml 340 ml 300 ml Exam Constitutional: alert; No distress Eyes: EOMI Respiratory: No labored breathing Genitourinary - Male: other (Barraza) 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: nl mental status, nl speech; No confused, No lethargic Skin: No diaphoresis Labs Result Diagram: 07/11/1855807/11/18558 Imaging Imaging IMPRESSION: Mild cardiomegaly with aortic atherosclerosis. Mild congestive change. RPTAT: [facility]ACC Gómez [place] Physician Date Time Electronically viewed and signed by Gómez Lima Physician on 07/11/2018 16:22 Medications Medications Current Medications IV Flush (NS 3 ml) 3 ml PER PROTOCOL IV ; Start 07/04/18 at 18:30 Ondansetron HCl (Zofran Inj) 4 mg Q6H PRN IV NAUSEA/VOMITING Last administered on 07/09/18 00:28; Admin Dose 4 MG; Start 07/04/18 at 18:30 Docusate Sodium (Colace) 100 mg Q12H PRN PO .CONSTIPATION; Start 07/04/18 at 18:30 Zolpidem Tartrate (Ambien) 5 mg QHS PRN PO .INSOMNIA; Start 07/04/18 at 18:30 Albuterol (Proventil 0.083% (Neb)) 2.5 mg Q4H RESP THERAPY PRN HHN SHORTNESS OF BREATH; Start 07/04/18 at 18:30 Metoclopramide HCl (Reglan) 5 mg Q6H PRN IV NAUSEA Last administered on 00:27; Admin Dose 5 MG; Start 07/05/18 at 10:00 Midodrine (Proamatine) 10 mg TID PO Last administered on 07/12/18 12:10; Admin Dose 10 MG; Start 07/06/18 at 09:00 Albuterol (Ventolin Hfa) 2 puff Q4 INH Last administered on 07/12/18 17:14; Admin Dose 2 PUFF; Start 07/06/18 at 04:30 Ondansetron HCl (Zofran Odt) 4 mg Q6H PRN ODT NAUSEA AND/OR VOMITING; Start 07/06/18 at 04:00 Pantoprazole (Protonix Tab) 40 mg BID@0600,1800 PO Last administered on 07/12/18 17:14; Admin Dose 40 MG; Start 07/06/18 at 06:00 Tramadol HCl (Ultram) 100 mg Q4H PRN PO SEVERE PAIN LEVEL 7-10 Last administered on 07/12/18 15:46; Admin Dose 100 MG; Start 07/06/18 at 11:00 Ceftriaxone Sodium 50 ml @ 100 mls/hr Q24H IVPB Last administered on 07/12/18 16:25; Admin Dose 100 MLS/HR; Start 07/06/18 at 16:30 Vancomycin HCl (Vancomycin Oral Syringe) 125 mg Q6 PO Last administered on 07/12/18 17:13; Admin Dose 125 MG; Start 07/07/18 at 18:00 Doxycycline Hyclate 100 mg/ Sodium Chloride 250 ml @ 250 mls/hr Q12 IVPB Last administered on 07/12/18 09:11; Admin Dose 250 MLS/HR; Start 07/08/18 at 21:00 Lactulose (Enulose) 10 gm BID PO Last administered on 07/12/18 08:54; Admin Dose 10 GM; Start 07/09/18 at 11:00 Rifaximin (Xifaxan) 200 mg TID PO Last administered on 07/12/18 12:10; Admin Dose 200 MG; Start 07/09/18 at 21:00 Furosemide (Lasix) 40 mg DAILY PO Last administered on 07/12/18 08:53; Admin Dose 40 MG; Start 07/12/18 at 09:00 Spironolactone (Aldactone) 100 mg DAILY PO Last administered on 07/12/18 08:53; Admin Dose 100 MG; Start 07/12/18 at 09:00 PARRIS THOMAS MD Jul 12, 2018 17:27
[2018-07-12] MEDS: ZOLPIDEM 5 MG TAB PO PRN (23:35)
[2018-07-13] MEDS: traMADol 50 MG TAB PO PRN ×5 (00:26→23:34)
[2018-07-13] MEDS: METOCLOPRAMIDE 10 MG INJ IV PRN (00:27)
[2018-07-13] MEDS: ALBUTEROL HFA 8 GM INHALER INH SCH ×6 (00:39→21:13)
[2018-07-13 03:19] VITALS: BP 103/58; PULSE 89; RESP 16
[2018-07-13] MEDS: VANCOMYCIN HCL 250 MG/5ML POSYG PO SCH ×3 (06:32→19:45)
[2018-07-13] MEDS: PANTOPRAZOLE (EC) 40 MG TAB PO SCH ×2 (06:32→19:45)
[2018-07-13 08:34] VITALS: BP 97/53; PULSE 95; RESP 18
[2018-07-13] MEDS: LACTULOSE 30ML CUP PO SCH ×2 (08:36→21:13)
[2018-07-13] MEDS: RIFAXIMIN 200 MG TAB PO SCH ×3 (08:37→21:13)
[2018-07-13] MEDS: FUROSEMIDE 40 MG TAB PO SCH (08:37)
[2018-07-13] MEDS: MIDODRINE 5 MG TAB PO SCH ×3 (08:37→21:13)
[2018-07-13] MEDS: DOXYCYCLINE 100 MG in SOD CHLORIDE 0.9% 250 ML IVPB SCH (08:39)
[2018-07-13] MEDS: SPIRONOLACTONE 50 MG TAB PO SCH (10:37)
--- NOTE | 2018-07-13 13:17 | CONS ---
Assessment/Plan Assessment/Plan Hospital Course (Demo Recall) No acute changes. Patient is in no distress, no fevers. Microbiology: Blood culture grew Klebsiella pneumonia on July 04 susceptible to Cipro and Levaquin, stool for C. difficile positive, urine culture negative MRSA swab negative Antimicrobials: Rocephin, Doxycycline, oral vancomycin Physical examination: Chronically ill-appearing middle-aged woman who is in no distress. Head atraumatic normocephalic sclera nonicteric vehicle mucosa dry neck is supple chest rise symmetrical breath sounds diminished at bases. Heart: S1-S2. Abdomen soft bowel sounds present extremities with bilateral edema, left lower extremity dressing intact Assessment: 1. Sepsis with Klebsiella pneumonia bacteremia likely secondary to SBP 2. Left lower extremity abscess/ cellulitis 3. C. difficile colitis 4. Alcoholic liver cirrhosis 5. Recurrent ascites 6. Anemia and thrombocytopenia Plan: Clinically unchanged, repeat blood cultures neg, plan for L foot debridement, continue abx, consider repeat paracentesis with fluid cx Consultation Date/Type/Reason Admit Date/Time Jul 04, 2018 at 14:22 Initial Consult Date 07/07/18 Type of Consult id Requesting Provider: ANA SPICER Date/Time of Note DATE: 07/13/18 TIME: 13:16 Exam/Review of Systems Exam Vitals Vital Signs Date Temp Pulse Resp B/P (MAP) Pulse Ox O2 O2 Flow FiO2 Time Delivery Rate 07/13/18 98.7 95 18 97/53 (68) 97 Room Air 08:34 Intake and Output 07/12/18 07/12/18 07/13/18 1515:00 23:00 07:00 IntakeIntake Total 500 ml 1850 ml 250 ml OutputOutput Total 1250 ml 5 ml BalanceBalance 500 ml 600 ml 245 ml Results Result Diagram: 07/13/18 0554 07/13/18 0554 Results 24hrs Laboratory Tests Test 07/13/18 05:54 White Blood Count 14.4 H Red Blood Count 2.34 L Hemoglobin 8.5 L Hematocrit 25.9 L Mean Corpuscular Volume 110.7 H Mean Corpuscular Hemoglobin 36.3 H Mean Corpuscular Hemoglobin Concent 32.8 Red Cell Distribution Width 19.1 H Platelet Count 42 #L Mean Platelet Volume 10.4 # Immature Granulocytes % 7.800 H Neutrophils % Segmented Neutrophils % (Manual) 72 Band Neutrophils % (Manual) 5 H Lymphocytes % Lymphocytes % (Manual) 13 L Reactive Lymphocytes % (Manual) 1 H Monocytes % Monocytes % (Manual) 6 Eosinophils % Basophils % Metamyelocytes % (manual) 2 H Myelocytes % (Manual) 1 H Nucleated Red Blood Cells % 0.0 Immature Granulocytes # 1.120 H Neutrophils # Neutrophils # (Manual) 10.5 H Band Neutrophils # 0.7 H Lymphocytes (Manual) 1.8 Lymphocytes # Reactive Lymphocytes # 0.1 H Monocytes # Monocytes # (Manual) 0.8 Eosinophils # Basophils # Metamyelocytes # 0.2 H Myelocytes # 0.1 H Nucleated Red Blood Cells # Platelet Estimate SIG DECREASED Polychromasia 2+ Poikilocytosis 2+ Anisocytosis 1+ Macrocytosis 1+ Prothrombin Time 27.4 H Prothrombin Time Ratio 2.1 INR International Normalized Ratio 2.54 Sodium Level 127 L Potassium Level 4.1 Chloride Level 97 Carbon Dioxide Level 20 L Anion Gap 10 Blood Urea Nitrogen 20 Creatinine 0.53 Est Glomerular Filtrat Rate mL/min > 60 Glucose Level 82 # Calcium Level 8.0 L Total Bilirubin 6.0 H Direct Bilirubin 1.90 H Indirect Bilirubin 4.1 H Aspartate Amino Transf (AST/SGOT) 94 H Alanine Aminotransferase (ALT/SGPT) 39 Alkaline Phosphatase 127 H Total Protein 6.4 Albumin 2.4 L Globulin 4.00 H Albumin/Globulin Ratio 0.60 Medications Medication Current Medications IV Flush (NS 3 ml) 3 ml PER PROTOCOL IV ; Start 07/04/18 at 18:30 Ondansetron HCl (Zofran Inj) 4 mg Q6H PRN IV NAUSEA/VOMITING Last administered on 07/09/18at 00:28; Admin Dose 4 MG; Start 07/04/18 at 18:30 Docusate Sodium (Colace) 100 mg Q12H PRN PO .CONSTIPATION; Start 07/04/18 at 18:30 Zolpidem Tartrate (Ambien) 5 mg QHS PRN PO .INSOMNIA Last administered on 07/12/18at 23:35; Admin Dose 5 MG; Start 07/04/18 at 18:30 Albuterol (Proventil 0.083% (Neb)) 2.5 mg Q4H RESP THERAPY PRN HHN SHORTNESS OF BREATH; Start 07/04/18 at 18:30 Metoclopramide HCl (Reglan) 5 mg Q6H PRN IV NAUSEA Last administered on 07/13/18 00:27; Admin Dose 5 MG; Start 07/05/18 at 10:00 Midodrine (Proamatine) 10 mg TID PO Last administered on 07/13/18 12:10; Admin Dose 10 MG; Start 07/06/18 at 09:00 Albuterol (Ventolin Hfa) 2 puff Q4 INH Last administered on 07/13/18 12:11; Admin Dose 2 PUFF; Start 07/06/18 at 04:30 Ondansetron HCl (Zofran Odt) 4 mg Q6H PRN ODT NAUSEA AND/OR VOMITING; Start 07/06/18 at 04:00 Pantoprazole (Protonix Tab) 40 mg BID@0600,1800 PO Last administered on 07/13/18 06:32; Admin Dose 40 MG; Start 07/06/18 at 06:00 Tramadol HCl (Ultram) 100 mg Q4H PRN PO SEVERE PAIN LEVEL 7-10 Last administered on 07/13/18 10:45; Admin Dose 100 MG; Start 07/06/18 at 11:00 Ceftriaxone Sodium 50 ml @ 100 mls/hr Q24H IVPB Last administered on 07/12/18 16:25; Admin Dose 100 MLS/HR; Start 07/06/18 at 16:30 Vancomycin HCl (Vancomycin Oral Syringe) 125 mg Q6 PO Last administered on 07/13/18 12:10; Admin Dose 125 MG; Start 07/07/18 at 18:00 Doxycycline Hyclate 100 mg/ Sodium Chloride 250 ml @ 250 mls/hr Q12 IVPB Last administered on 07/13/18 08:39; Admin Dose 250 MLS/HR; Start 07/08/18 at 21:00 Lactulose (Enulose) 10 gm BID PO Last administered on 07/13/18 08:36; Admin Dose 10 GM; Start 07/09/18 at 11:00 Rifaximin (Xifaxan) 200 mg TID PO Last administered on 07/13/18 12:10; Admin Dose 200 MG; Start 07/09/18 at 21:00 Furosemide (Lasix) 40 mg DAILY PO Last administered on 07/13/18 08:37; Admin Dose 40 MG; Start 2/5/19 at 09:00 Spironolactone (Aldactone) 100 mg DAILY PO Last administered on 07/13/18at 10:37; Admin Dose 100 MG; Start 07/12/18 at 09:00 EMA MUELLER NP Jul 13, 2018 13:17
[2018-07-13 14:42] VITALS: BP 106/58; PULSE 87; RESP 18
--- NOTE | 2018-07-13 15:32 | PN ---
Date/Time of Note Date/Time of Note DATE: 07/13/18 TIME: 15:31 Assessment/Plan VTE Prophylaxis Risk score (from Ns)>0 risk: 6 SCD applied (from Ns): Yes Pharmacological prophylaxis: heparin Lines/Catheters IV Catheter Type (from Nrsg): Saline [employer] line still needed: Yes Urinary Cath still in place: Yes Reason Cath still needed: urinary retention Assessment/Plan Hospital Course 48 yo female with cirrhosis, sepsis 2/2 cellulitis and large foot wound Foot wound - Abx per ID - Podiatry to debride tomorrow - MRI foot pending SBP with klebsiella bacteremia: - Abx course per ID Cirrhosis: - resume diuretics - PATTIE is resolved - Paracentesis if needed as an outpatinet - rifaxamin/lactulose Hyponatremia: - Hypervolemic Limit free water. Loop diuretics may help PT/OT DIscharge to SNF when stable Result Diagram: 07/13/18 0554 07/13/18 0554 Results 24hrs Laboratory Tests Test 07/13/18 05:54 White Blood Count 14.4 H Red Blood Count 2.34 L Hemoglobin 8.5 L Hematocrit 25.9 L Mean Corpuscular Volume 110.7 H Mean Corpuscular Hemoglobin 36.3 H Mean Corpuscular Hemoglobin Concent 32.8 Red Cell Distribution Width 19.1 H Platelet Count 42 #L Mean Platelet Volume 10.4 # Immature Granulocytes % 7.800 H Neutrophils % Segmented Neutrophils % (Manual) 72 Band Neutrophils % (Manual) 5 H Lymphocytes % Lymphocytes % (Manual) 13 L Reactive Lymphocytes % (Manual) 1 H Monocytes % Monocytes % (Manual) 6 Eosinophils % Basophils % Metamyelocytes % (manual) 2 H Myelocytes % (Manual) 1 H Nucleated Red Blood Cells % 0.0 Immature Granulocytes # 1.120 H Neutrophils # Neutrophils # (Manual) 10.5 H Band Neutrophils # 0.7 H Lymphocytes (Manual) 1.8 Lymphocytes # Reactive Lymphocytes # 0.1 H Monocytes # Monocytes # (Manual) 0.8 Eosinophils # Basophils # Metamyelocytes # 0.2 H Myelocytes # 0.1 H Nucleated Red Blood Cells # Platelet Estimate SIG DECREASED Polychromasia 2+ Poikilocytosis 2+ Anisocytosis 1+ Macrocytosis 1+ Prothrombin Time 27.4 H Prothrombin Time Ratio 2.1 INR International Normalized Ratio 2.54 Sodium Level 127 L Potassium Level 4.1 Chloride Level 97 Carbon Dioxide Level 20 L Anion Gap 10 Blood Urea Nitrogen 20 Creatinine 0.53 Est Glomerular Filtrat Rate mL/min > 60 Glucose Level 82 # Calcium Level 8.0 L Total Bilirubin 6.0 H Direct Bilirubin 1.90 H Indirect Bilirubin 4.1 H Aspartate Amino Transf (AST/SGOT) 94 H Alanine Aminotransferase (ALT/SGPT) 39 Alkaline Phosphatase 127 H Total Protein 6.4 Albumin 2.4 L Globulin 4.00 H Albumin/Globulin Ratio 0.60 Subjective 24 Hr Interval Summary Free Text/Dictation Patient feels well today She has no complaints and is in good spirits Awaiting debridement tomorrow Exam/Review of Systems Exam Vitals Vital Signs Date Temp Pulse Resp B/P (MAP) Pulse Ox O2 O2 Flow FiO2 Time Delivery Rate 07/13/18 97.5 87 18 106/58 96 Room Air 14:42 (74) Intake and Output 07/12/18 07/12/18 07/13/18 1515:00 23:00 07:00 IntakeIntake Total 500 ml 1850 ml 250 ml OutputOutput Total 1250 ml 5 ml BalanceBalance 500 ml 600 ml 245 ml Constitutional: alert, oriented, well developed Psych: no complaints, nl mood/affect Head: normocephalic, atraumatic Eyes: nl conjunctiva, EOMI, nl lids, nl sclera, PERRL ENMT: nl external ears & nose, nl lips & teeth, nl nasal mucosa & septum Neck: supple, non-tender Respiratory: clear to auscultation, normal air movement Cardiovascular: regular rate and rhythm, nl pulses Gastrointestinal: soft, nl liver, spleen, non-tender Musculoskeletal: nl extremities to inspection, nl gait and stance Extremities: normal pulses 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: LEAD PASTOR II-XII intact, nl mental status, nl speech, nl strength Skin: nl turgor; No rash or lesions Lymph: nl lymph nodes Results Results 24hrs Laboratory Tests Test 07/13/18 05:54 White Blood Count 14.4 H Red Blood Count 2.34 L Hemoglobin 8.5 L Hematocrit 25.9 L Mean Corpuscular Volume 110.7 H Mean Corpuscular Hemoglobin 36.3 H Mean Corpuscular Hemoglobin Concent 32.8 Red Cell Distribution Width 19.1 H Platelet Count 42 #L Mean Platelet Volume 10.4 # Immature Granulocytes % 7.800 H Neutrophils % Segmented Neutrophils % (Manual) 72 Band Neutrophils % (Manual) 5 H Lymphocytes % Lymphocytes % (Manual) 13 L Reactive Lymphocytes % (Manual) 1 H Monocytes % Monocytes % (Manual) 6 Eosinophils % Basophils % Metamyelocytes % (manual) 2 H Myelocytes % (Manual) 1 H Nucleated Red Blood Cells % 0.0 Immature Granulocytes # 1.120 H Neutrophils # Neutrophils # (Manual) 10.5 H Band Neutrophils # 0.7 H Lymphocytes (Manual) 1.8 Lymphocytes # Reactive Lymphocytes # 0.1 H Monocytes # Monocytes # (Manual) 0.8 Eosinophils # Basophils # Metamyelocytes # 0.2 H Myelocytes # 0.1 H Nucleated Red Blood Cells # Platelet Estimate SIG DECREASED Polychromasia 2+ Poikilocytosis 2+ Anisocytosis 1+ Macrocytosis 1+ Prothrombin Time 27.4 H Prothrombin Time Ratio 2.1 INR International Normalized Ratio 2.54 Sodium Level 127 L Potassium Level 4.1 Chloride Level 97 Carbon Dioxide Level 20 L Anion Gap 10 Blood Urea Nitrogen 20 Creatinine 0.53 Est Glomerular Filtrat Rate mL/min > 60 Glucose Level 82 # Calcium Level 8.0 L Total Bilirubin 6.0 H Direct Bilirubin 1.90 H Indirect Bilirubin 4.1 H Aspartate Amino Transf (AST/SGOT) 94 H Alanine Aminotransferase (ALT/SGPT) 39 Alkaline Phosphatase 127 H Total Protein 6.4 Albumin 2.4 L Globulin 4.00 H Albumin/Globulin Ratio 0.60 Medications Medication Current Medications IV Flush (NS 3 ml) 3 ml PER PROTOCOL IV ; Start 07/04/18 at 18:30 Ondansetron HCl (Zofran Inj) 4 mg Q6H PRN IV NAUSEA/VOMITING Last administered on 07/09/18at 00:28; Admin Dose 4 MG; Start 07/04/18 at 18:30 Docusate Sodium (Colace) 100 mg Q12H PRN PO .CONSTIPATION; Start 07/04/18 at 18:30 Zolpidem Tartrate (Ambien) 5 mg QHS PRN PO .INSOMNIA Last administered on 07/12/18at 23:35; Admin Dose 5 MG; Start 07/04/18 at 18:30 Albuterol (Proventil 0.083% (Neb)) 2.5 mg Q4H RESP THERAPY PRN HHN SHORTNESS OF BREATH; Start 07/04/18 at 18:30 Metoclopramide HCl (Reglan) 5 mg Q6H PRN IV NAUSEA Last administered on 07/13/18 00:27; Admin Dose 5 MG; Start 07/05/18 at 10:00 Midodrine (Proamatine) 10 mg TID PO Last administered on 07/13/18 12:10; Admin Dose 10 MG; Start 07/06/18 at 09:00 Albuterol (Ventolin Hfa) 2 puff Q4 INH Last administered on 07/13/18 12:11; Admin Dose 2 PUFF; Start 07/06/18 at 04:30 Ondansetron HCl (Zofran Odt) 4 mg Q6H PRN ODT NAUSEA AND/OR VOMITING; Start 07/06/18 at 04:00 Pantoprazole (Protonix Tab) 40 mg BID@0600,1800 PO Last administered on 07/13/18 06:32; Admin Dose 40 MG; Start 07/06/18 at 06:00 Tramadol HCl (Ultram) 100 mg Q4H PRN PO SEVERE PAIN LEVEL 7-10 Last administered on 07/13/18 10:45; Admin Dose 100 MG; Start 07/06/18 at 11:00 Ceftriaxone Sodium 50 ml @ 100 mls/hr Q24H IVPB Last administered on 07/12/18 16:25; Admin Dose 100 MLS/HR; Start 07/06/18 at 16:30 Vancomycin HCl (Vancomycin Oral Syringe) 125 mg Q6 PO Last administered on 07/13/18 12:10; Admin Dose 125 MG; Start 07/07/18 at 18:00 Doxycycline Hyclate 100 mg/ Sodium Chloride 250 ml @ 250 mls/hr Q12 IVPB Last administered on 07/13/18 08:39; Admin Dose 250 MLS/HR; Start 07/08/18 at 21:00 Lactulose (Enulose) 10 gm BID PO Last administered on 07/13/18 08:36; Admin Dose 10 GM; Start 07/09/18 at 11:00 Rifaximin (Xifaxan) 200 mg TID PO Last administered on 07/13/18 12:10; Admin Dose 200 MG; Start 07/09/18 at 21:00 Spironolactone (Aldactone) 100 mg DAILY PO Last administered on 2/6/19at 10:37; Admin Dose 100 MG; Start 07/12/18 at 09:00 MARIA DEL CARMEN BENITSE MD Jul 13, 2018 15:32
[2018-07-13] MEDS: CEFTRIAXONE 1 GM/50 ML (PMX) 50 ML IVPB SCH (16:20)
[2018-07-13 19:28] VITALS: BP 104/57; PULSE 89; RESP 18
[2018-07-13] MEDS: ZOLPIDEM 5 MG TAB PO PRN (21:14)
[2018-07-14] MEDS: VANCOMYCIN HCL 250 MG/5ML POSYG PO SCH ×5 (00:15→23:59)
[2018-07-14] MEDS: DOXYCYCLINE 100 MG in SOD CHLORIDE 0.9% 250 ML IVPB SCH ×3 (00:17→22:05)
[2018-07-14] MEDS: ALBUTEROL HFA 8 GM INHALER INH SCH ×6 (01:00→22:02)
[2018-07-14 01:55] VITALS: BP 103/65; PULSE 92; RESP 17
[2018-07-14] MEDS: traMADol 50 MG TAB PO PRN ×2 (05:42→12:45)
[2018-07-14] MEDS: PANTOPRAZOLE (EC) 40 MG TAB PO SCH ×2 (05:42→17:45)
[2018-07-14 07:50] VITALS: BP 107/65; PULSE 90; RESP 16
[2018-07-14] MEDS: RIFAXIMIN 200 MG TAB PO SCH ×3 (09:38→22:00)
[2018-07-14] MEDS: LACTULOSE 30ML CUP PO SCH ×2 (09:39→21:00)
[2018-07-14] MEDS: MIDODRINE 5 MG TAB PO SCH ×3 (09:39→22:06)
--- NOTE | 2018-07-14 10:06 | CONS ---
Assessment/Plan Assessment/Plan Assessment/Plan 48 yo Female with 1) PATTIE in the setting of Sepsis and hemodynamic changes, HRS, More Likely Pre- renal azotemia and Intravascular Volume Depletion, Not ATN 2) Hyponatremia in Chronic Liver disease, S/p Paracentesis 3) Hyperkalemia Resolved 4) CDiff Diarrhea 5) Lower extremity Cellulitis 6) Abdominal Pain 7) Hyponatremia Repeat BMP today Urine studies pending Will review and decide of further diuretic Rx Cont Fluid Restriction Consultation Date/Type/Reason Admit Date/Time Jul 04, 2018 at 14:22 Type of Consult Nephrology Date/Time of Note DATE: 07/14/18 TIME: 10:04 Currently NPO No new complaints Constitutional: No requiring O2 Exam/Review of Systems Vital Signs Vitals Vital Signs Date Temp Pulse Resp B/P (MAP) Pulse Ox O2 O2 Flow FiO2 Time Delivery Rate 07/14/18 97.8 90 16 107/65 95 07:50 (79) 07/13/18 Room Air 14:42 Intake and Output 07/13/18 07/13/18 07/14/18 1515:00 23:00 07:00 IntakeIntake Total 350 ml 100 ml 350 ml OutputOutput Total 600 ml 0 ml BalanceBalance -250 ml 100 ml 350 ml Exam Constitutional: No distress Head: atraumatic Eyes: EOMI Respiratory: No labored breathing Cardiovascular: edema Gastrointestinal: ascites, distended Extremities: edema 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: No confused, No lethargic Labs Result Diagram: 07/13/18 0554 07/13/18 0554 Medications Medications Current Medications IV Flush (NS 3 ml) 3 ml PER PROTOCOL IV ; Start 07/04/18 at 18:30 Ondansetron HCl (Zofran Inj) 4 mg Q6H PRN IV NAUSEA/VOMITING Last administered on 07/09/18at 00:28; Admin Dose 4 MG; Start 07/04/18 at 18:30 Docusate Sodium (Colace) 100 mg Q12H PRN PO .CONSTIPATION; Start 07/04/18 at 18:30 Zolpidem Tartrate (Ambien) 5 mg QHS PRN PO .INSOMNIA Last administered on 07/13/18at 21:14; Admin Dose 5 MG; Start 07/04/18 at 18:30 Albuterol (Proventil 0.083% (Neb)) 2.5 mg Q4H RESP THERAPY PRN HHN SHORTNESS OF BREATH; Start 07/04/18 at 18:30 Metoclopramide HCl (Reglan) 5 mg Q6H PRN IV NAUSEA Last administered on 07/13/18 00:27; Admin Dose 5 MG; Start 07/05/18 at 10:00 Midodrine (Proamatine) 10 mg TID PO Last administered on 07/14/18 09:39; Admin Dose 10 MG; Start 07/06/18 at 09:00 Albuterol (Ventolin Hfa) 2 puff Q4 INH Last administered on 07/14/18 09:39; Admin Dose 2 PUFF; Start 07/06/18 at 04:30 Ondansetron HCl (Zofran Odt) 4 mg Q6H PRN ODT NAUSEA AND/OR VOMITING; Start 07/06/18 at 04:00 Pantoprazole (Protonix Tab) 40 mg BID@0600,1800 PO Last administered on 07/14/18 05:42; Admin Dose 40 MG; Start 07/06/18 at 06:00 Tramadol HCl (Ultram) 100 mg Q4H PRN PO SEVERE PAIN LEVEL 7-10 Last administered on 07/14/18 05:42; Admin Dose 100 MG; Start 07/06/18 at 11:00 Ceftriaxone Sodium 50 ml @ 100 mls/hr Q24H IVPB Last administered on 07/13/18 16:20; Admin Dose 100 MLS/HR; Start 07/06/18 at 16:30 Vancomycin HCl (Vancomycin Oral Syringe) 125 mg Q6 PO Last administered on 07/14/18 05:42; Admin Dose 125 MG; Start 07/07/18 at 18:00 Doxycycline Hyclate 100 mg/ Sodium Chloride 250 ml @ 250 mls/hr Q12 IVPB Last administered on 07/14/18 09:38; Admin Dose 250 MLS/HR; Start 07/08/18 at 21:00 Lactulose (Enulose) 10 gm BID PO Last administered on 07/14/18 09:39; Admin Dose 10 GM; Start 07/09/18 at 11:00 Rifaximin (Xifaxan) 200 mg TID PO Last administered on 07/14/18 09:38; Admin Dose 200 MG; Start 07/09/18 at 21:00 PARRIS THOMAS MD Jul 14, 2018 10:06
--- NOTE | 2018-07-14 13:55 | CONS ---
Assessment/Plan Assessment/Plan Hospital Course (Demo Recall) No acute changes. Patient is sleeping, no fevers. Microbiology: Blood culture grew Klebsiella pneumonia on July 04 susceptible to Cipro and Levaquin, stool for C. difficile positive, urine culture negative MRSA swab negative Antimicrobials: Rocephin, Doxycycline, oral vancomycin Physical examination: Chronically ill-appearing middle-aged woman who is in no distress. Head atraumatic normocephalic sclera nonicteric vehicle mucosa dry neck is supple chest rise symmetrical breath sounds diminished at bases. Heart: S1-S2. Abdomen soft bowel sounds present extremities with bilateral edema, left lower extremity dressing intact Assessment: 1. Sepsis with Klebsiella pneumonia bacteremia likely secondary to SBP 2. Left lower extremity abscess/ cellulitis 3. C. difficile colitis 4. Alcoholic liver cirrhosis 5. Recurrent ascites 6. Anemia and thrombocytopenia Plan: Clinically unchanged, repeat blood cultures neg, MRI noted--> no OM, change Rocephin to Invanz, follow podiatry recommendations Consultation Date/Type/Reason Admit Date/Time Jul 04, 2018 at 14:22 Initial Consult Date 07/07/18 Type of Consult id Requesting Provider: ANA SPICER Date/Time of Note DATE: 07/14/18 TIME: 13:54 Exam/Review of Systems Exam Vitals Vital Signs Date Temp Pulse Resp B/P (MAP) Pulse Ox O2 O2 Flow FiO2 Time Delivery Rate 07/14/18 97.8 90 16 107/65 95 07:50 (79) 07/13/18 Room Air 14:42 Intake and Output 07/13/18 07/13/18 07/14/18 1515:00 23:00 07:00 IntakeIntake Total 350 ml 100 ml 350 ml OutputOutput Total 600 ml 0 ml BalanceBalance -250 ml 100 ml 350 ml Results Result Diagram: 07/13/18 0554 07/14/18 1024 Results 24hrs Laboratory Tests Test 07/14/18 10:21 07/14/18 10:24 Total Bilirubin 7.3 H Direct Bilirubin 2.40 #H Indirect Bilirubin 4.9 H Aspartate Amino Transf (AST/SGOT) 90 H Alanine Aminotransferase (ALT/SGPT) 46 Alkaline Phosphatase 95 Total Protein 6.1 Albumin 2.3 L Sodium Level 129 L Potassium Level 3.8 Chloride Level 98 Carbon Dioxide Level 22 Anion Gap 9 Blood Urea Nitrogen 18 Creatinine 0.49 Est Glomerular Filtrat Rate mL/min > 60 Glucose Level 75 Calcium Level 8.3 L Medications Medication Current Medications IV Flush (NS 3 ml) 3 ml PER PROTOCOL IV ; Start 07/04/18 at 18:30 Ondansetron HCl (Zofran Inj) 4 mg Q6H PRN IV NAUSEA/VOMITING Last administered on 07/09/18 00:28; Admin Dose 4 MG; Start 07/04/18 at 18:30 Docusate Sodium (Colace) 100 mg Q12H PRN PO .CONSTIPATION; Start 07/04/18 at 18:30 Zolpidem Tartrate (Ambien) 5 mg QHS PRN PO .INSOMNIA Last administered on 07/13/18 21:14; Admin Dose 5 MG; Start 07/04/18 at 18:30 Albuterol (Proventil 0.083% (Neb)) 2.5 mg Q4H RESP THERAPY PRN HHN SHORTNESS OF BREATH; Start 07/04/18 at 18:30 Metoclopramide HCl (Reglan) 5 mg Q6H PRN IV NAUSEA Last administered on 07/13/18 00:27; Admin Dose 5 MG; Start 07/05/18 at 10:00 Midodrine (Proamatine) 10 mg TID PO Last administered on 07/14/18 12:36; Admin Dose 10 MG; Start 07/06/18 at 09:00 Albuterol (Ventolin Hfa) 2 puff Q4 INH Last administered on 07/14/18 12:37; Admin Dose 2 PUFF; Start 07/06/18 at 04:30 Ondansetron HCl (Zofran Odt) 4 mg Q6H PRN ODT NAUSEA AND/OR VOMITING; Start 07/06/18 at 04:00 Pantoprazole (Protonix Tab) 40 mg BID@0600,1800 PO Last administered on 07/14/18 05:42; Admin Dose 40 MG; Start 07/06/18 at 06:00 Tramadol HCl (Ultram) 100 mg Q4H PRN PO SEVERE PAIN LEVEL 7-10 Last administered on 07/14/18 12:45; Admin Dose 100 MG; Start 07/06/18 at 11:00 Ceftriaxone Sodium 50 ml @ 100 mls/hr Q24H IVPB Last administered on 07/13/18 16:20; Admin Dose 100 MLS/HR; Start 07/06/18 at 16:30 Vancomycin HCl (Vancomycin Oral Syringe) 125 mg Q6 PO Last administered on 07/14/18 12:35; Admin Dose 125 MG; Start 07/07/18 at 18:00 Doxycycline Hyclate 100 mg/ Sodium Chloride 250 ml @ 250 mls/hr Q12 IVPB Last administered on 07/14/18 09:38; Admin Dose 250 MLS/HR; Start 07/08/18 at 21:00 Lactulose (Enulose) 10 gm BID PO Last administered on 07/14/18 09:39; Admin Dose 10 GM; Start 07/09/18 at 11:00 Rifaximin (Xifaxan) 200 mg TID PO Last administered on 07/14/18 12:35; Admin Dose 200 MG; Start 07/09/18 at 21:00 EMA MUELLER NP Jul 14, 2018 13:55
[2018-07-14 14:46] VITALS: BP 115/68; PULSE 95; RESP 18
[2018-07-14] MEDS ORDERED: LIDOCAINE 1% (MPF) 30 ML INJ ONE (15:00)
--- NOTE | 2018-07-14 15:39 | PN ---
Date/Time of Note Date/Time of Note DATE: 07/14/18 TIME: 15:37 Assessment/Plan VTE Prophylaxis Risk score (from Ns)>0 risk: 7 SCD applied (from Ns): Yes Pharmacological prophylaxis: heparin Lines/Catheters IV Catheter Type (from Nrs): Mid Line Urinary Cath still in place: No Assessment/Plan Hospital Course 48 yo female with cirrhosis, sepsis 2/2 cellulitis and large foot wound Foot wound - Abx per ID - Podiatry to debride tomorrow - MRI foot pending SBP with klebsiella bacteremia: - Abx course per ID Cirrhosis: - resume diuretics - PATTIE is resolved - Paracentesis if needed as an outpatinet - rifaxamin/lactulose C Diff diarrhea: - PO vanco course Hyponatremia: - Hypervolemic Limit free water. Loop diuretics may help PT/OT DIscharge to SNF when stable Result Diagram: 07/13/18 0554 07/14/18 1024 Results 24hrs Laboratory Tests Test 07/14/18 10:21 07/14/18 10:24 Total Bilirubin 7.3 H Direct Bilirubin 2.40 #H Indirect Bilirubin 4.9 H Aspartate Amino Transf (AST/SGOT) 90 H Alanine Aminotransferase (ALT/SGPT) 46 Alkaline Phosphatase 95 Total Protein 6.1 Albumin 2.3 L Sodium Level 129 L Potassium Level 3.8 Chloride Level 98 Carbon Dioxide Level 22 Anion Gap 9 Blood Urea Nitrogen 18 Creatinine 0.49 Est Glomerular Filtrat Rate mL/min > 60 Glucose Level 75 Calcium Level 8.3 L Subjective 24 Hr Interval Summary Free Text/Dictation A bit more somnulent and encephelopathic today. She says she slept very poorly Awiating foot debridement MRI shows no osteo Exam/Review of Systems Exam Vitals Vital Signs Date Temp Pulse Resp B/P (MAP) Pulse Ox O2 O2 Flow FiO2 Time Delivery Rate 07/14/18 98.0 95 18 115/68 95 Room Air 14:46 (84) Intake and Output 07/13/18 07/13/18 07/14/18 1414:59 22:59 06:59 IntakeIntake Total 350 ml 100 ml 350 ml OutputOutput Total 600 ml 0 ml BalanceBalance -250 ml 100 ml 350 ml Exam Drowsy, low grade HE on exam RRR Breathign comfortably Abdomen mildly distende L foot wrapped with clear serous drainage Results Results 24hrs Laboratory Tests Test 07/14/18 10:21 07/14/18 10:24 Total Bilirubin 7.3 H Direct Bilirubin 2.40 #H Indirect Bilirubin 4.9 H Aspartate Amino Transf (AST/SGOT) 90 H Alanine Aminotransferase (ALT/SGPT) 46 Alkaline Phosphatase 95 Total Protein 6.1 Albumin 2.3 L Sodium Level 129 L Potassium Level 3.8 Chloride Level 98 Carbon Dioxide Level 22 Anion Gap 9 Blood Urea Nitrogen 18 Creatinine 0.49 Est Glomerular Filtrat Rate mL/min > 60 Glucose Level 75 Calcium Level 8.3 L Medications Medication Current Medications IV Flush (NS 3 ml) 3 ml PER PROTOCOL IV ; Start 07/04/18 at 18:30 Ondansetron HCl (Zofran Inj) 4 mg Q6H PRN IV NAUSEA/VOMITING Last administered on 07/09/18at 00:28; Admin Dose 4 MG; Start 07/04/18 at 18:30 Docusate Sodium (Colace) 100 mg Q12H PRN PO .CONSTIPATION; Start 07/04/18 at 18:30 Zolpidem Tartrate (Ambien) 5 mg QHS PRN PO .INSOMNIA Last administered on 07/13/18at 21:14; Admin Dose 5 MG; Start 07/04/18 at 18:30 Albuterol (Proventil 0.083% (Neb)) 2.5 mg Q4H RESP THERAPY PRN HHN SHORTNESS OF BREATH; Start 07/04/18 at 18:30 Metoclopramide HCl (Reglan) 5 mg Q6H PRN IV NAUSEA Last administered on 07/13/18 at 00:27; Admin Dose 5 MG; Start 07/05/18 at 10:00 Midodrine (Proamatine) 10 mg TID PO Last administered on 07/14/18at 12:36; Admin Dose 10 MG; Start 07/06/18 at 09:00 Albuterol (Ventolin Hfa) 2 puff Q4 INH Last administered on 07/14/18at 12:37; Admin Dose 2 PUFF; Start 07/06/18 at 04:30 Ondansetron HCl (Zofran Odt) 4 mg Q6H PRN ODT NAUSEA AND/OR VOMITING; Start 07/06/18 at 04:00 Pantoprazole (Protonix Tab) 40 mg BID@0600,1800 PO Last administered on 07/14/18 05:42; Admin Dose 40 MG; Start 07/06/18 at 06:00 Tramadol HCl (Ultram) 100 mg Q4H PRN PO SEVERE PAIN LEVEL 7-10 Last administered on 07/14/18 12:45; Admin Dose 100 MG; Start 07/06/18 at 11:00 Vancomycin HCl (Vancomycin Oral Syringe) 125 mg Q6 PO Last administered on 07/14/18 12:35; Admin Dose 125 MG; Start 07/07/18 at 18:00 Doxycycline Hyclate 100 mg/ Sodium Chloride 250 ml @ 250 mls/hr Q12 IVPB Last administered on 07/14/18 09:38; Admin Dose 250 MLS/HR; Start 07/08/18 at 21:00 Lactulose (Enulose) 10 gm BID PO Last administered on 07/14/18 09:39; Admin Dose 10 GM; Start 07/09/18 at 11:00 Rifaximin (Xifaxan) 200 mg TID PO Last administered on 07/14/18 12:35; Admin Dose 200 MG; Start 07/09/18 at 21:00 Ertapenem 1 gm/ Sodium Chloride 100 ml @ 200 mls/hr Q24H IVPB ; Start 07/14/18 at 14:00 MARIA DEL CARMEN BENITES MD Jul 14, 2018 15:39
[2018-07-14] MEDS ORDERED: THROMBIN 5000 UNIT VIAL ONE (16:06)
[2018-07-14] MEDS ORDERED: GELATIN SIZE 100 SPONGE ONE (16:08)
[2018-07-14] MEDS: ERTAPENEM SODIUM 1 GM in SOD CHLORIDE 0.9% 100 ML IVPB SCH (16:16)
[2018-07-14] MEDS ORDERED: PHYTONADIONE (1 MG/ML PO SYG) PO ONE (17:30)
[2018-07-14] MEDS: HYDROCODONE/APAP (5/325) TAB PO PRN ×2 (17:54→23:59)
--- NOTE | 2018-07-14 18:18 | PN ---
Date/Time of Note Date/Time of Note DATE: 07/14/18 TIME: 18:18 Assessment/Plan VTE Prophylaxis Risk score (from Ns)>0 risk: 7 SCD applied (from Ns): Yes Pharmacological prophylaxis: other Lines/Catheters IV C[facility] Type [facility]from [facility] Mid Line Urinary Cath still in place: No Assessment/Plan Assessment/Plan 1. Left foot abscess with tissue necrosis, left foot. 2. Cellulitis, left lower extremity. 3. Sepsis with Klebsiella pneumoniae bacteremia. 4. Clostridium difficile colitis. 5. Alcoholic liver cirrhosis with recurrent ascites. 6. Anemia and thrombocytopenia. Plan Due to patient's elevated INR and low platelet count, case was cancelled and planned for Wednesday. Spoke to hospitalist and will medically optimize patient prior to surgery. Continue with daily dressing changes to the left foot with dakins irrigation and betadine 4x4 gauze and wrap with kerlix. Offload heels with pillow. Continue with IV abx as per recommendations. Patient will have planned OR excisional debridement. Result Diagram: 07/13/18 0554 07/14/18 1024 Results 24hrs Laboratory Tests Test 07/14/18 10:21 07/14/18 10:24 Total Bilirubin 7.3 H Direct Bilirubin 2.40 #H Indirect Bilirubin 4.9 H Aspartate Amino Transf (AST/SGOT) 90 H Alanine Aminotransferase (ALT/SGPT) 46 Alkaline Phosphatase 95 Total Protein 6.1 Albumin 2.3 L Sodium Level 129 L Potassium Level 3.8 Chloride Level 98 Carbon Dioxide Level 22 Anion Gap 9 Blood Urea Nitrogen 18 Creatinine 0.49 Est Glomerular Filtrat Rate mL/min > 60 Glucose Level 75 Calcium Level 8.3 L Subjective 24 Hr Interval Summary Free Text/Dictation No acute events overnight. Exam/Review of Systems Exam Vitals Vital Signs Date Temp Pulse Resp B/P (MAP) Pulse Ox O2 O2 Flow FiO2 Time Delivery Rate 07/14/18 98.0 95 18 115/68 95 Room Air 14:46 (84) Intake and Output 07/13/18 07/13/18 07/14/18 1515:00 23:00 07:00 IntakeIntake Total 350 ml 100 ml 350 ml OutputOutput Total 600 ml 0 ml BalanceBalance -250 ml 100 ml 350 ml Exam Bilateral lower extremity 2+ pitting edema. Cellulitis on left lower extremity. Ulceration in left foot measuring approximately 5 x 4 cm with necrosis of skin and subcutaneous tissue, also extending along the extensor tendon to the 4th toe. She does have motion with extension, flexion of the toes. No signs of pressure sore. Pedal pulses and popliteal pulse in left lower extremity are palpable Foot MRI IMPRESSION: 1. No evidence of osteomyelitis. 2. Diffuse subcutaneous edema as detailed above most prominent in the dorsal forefoot and midfoot, with focal skin irregularity in the lateral forefoot. 3. Diffuse edema in the intrinsic musculature of the foot. Results Results 24hrs Laboratory Tests Test 07/14/18 10:21 07/14/18 10:24 Total Bilirubin 7.3 H Direct Bilirubin 2.40 #H Indirect Bilirubin 4.9 H Aspartate Amino Transf (AST/SGOT) 90 H Alanine Aminotransferase (ALT/SGPT) 46 Alkaline Phosphatase 95 Total Protein 6.1 Albumin 2.3 L Sodium Level 129 L Potassium Level 3.8 Chloride Level 98 Carbon Dioxide Level 22 Anion Gap 9 Blood Urea Nitrogen 18 Creatinine 0.49 Est Glomerular Filtrat Rate mL/min > 60 Glucose Level 75 Calcium Level 8.3 L Medications Medication Current Medications IV Flush (NS 3 ml) 3 ml PER PROTOCOL IV ; Start 07/04/18 at 18:30 Ondansetron HCl (Zofran Inj) 4 mg Q6H PRN IV NAUSEA/VOMITING Last administered on 07/09/18at 00:28; Admin Dose 4 MG; Start 07/04/18 at 18:30 Docusate Sodium (Colace) 100 mg Q12H PRN PO .CONSTIPATION; Start 07/04/18 at 18:30 Albuterol (Proventil 0.083% (Neb)) 2.5 mg Q4H RESP THERAPY PRN HHN SHORTNESS OF BREATH; Start 07/04/18 at 18:30 Metoclopramide HCl (Reglan) 5 mg Q6H PRN IV NAUSEA Last administered on 07/13/18a t 00:27; Admin Dose 5 MG; Start 07/05/18 at 10:00 Midodrine (Proamatine) 10 mg TID PO Last administered on 07/14/18at 12:36; Admin Dose 10 MG; Start 07/06/18 at 09:00 Albuterol (Ventolin Hfa) 2 puff Q4 INH Last administered on 07/14/18at 17:44; Admin Dose 2 PUFF; Start 07/06/18 at 04:30 Ondansetron HCl (Zofran Odt) 4 mg Q6H PRN ODT NAUSEA AND/OR VOMITING; Start 07/06/18 at 04:00 Pantoprazole (Protonix Tab) 40 mg BID@0600,1800 PO Last administered on 07/14/18 17:45; Admin Dose 40 MG; Start 07/06/18 at 06:00 Vancomycin HCl (Vancomycin Oral Syringe) 125 mg Q6 PO Last administered on 07/14/18 17:45; Admin Dose 125 MG; Start 07/07/18 at 18:00 Doxycycline Hyclate 100 mg/ Sodium Chloride 250 ml @ 250 mls/hr Q12 IVPB Last administered on 07/14/18 09:38; Admin Dose 250 MLS/HR; Start 07/08/18 at 21:00 Lactulose (Enulose) 10 gm BID PO Last administered on 07/14/18 09:39; Admin Dose 10 GM; Start 07/09/18 at 11:00 Rifaximin (Xifaxan) 200 mg TID PO Last administered on 07/14/18 12:35; Admin Dose 200 MG; Start 07/09/18 at 21:00 Ertapenem 1 gm/ Sodium Chloride 100 ml @ 200 mls/hr Q24H IVPB Last administered on 07/14/18 16:16; Admin Dose 200 MLS/HR; Start 07/14/18 at 14:00 Acetaminophen/ Hydrocodone Bitart ([place] (5/325)) 1 tab Q6H PRN PO MODERATE PAIN LEVEL 4-6 Last administered on 07/14/18 17:54; Admin Dose 1 TAB; Start 07/14/18 at 17:30 JEANINE SAWYER DPM Jul 14, 2018 18:18
[2018-07-14 21:08] VITALS: BP 111/65; PULSE 99; RESP 20
[2018-07-15] VITALS (7 sets, daily range): BP systolic 87–111; BP diastolic 48–59; PULSE 87–94; RESP 18
[2018-07-15] MEDS: ALBUTEROL HFA 8 GM INHALER INH SCH ×6 (00:04→20:52)
[2018-07-15] MEDS: PANTOPRAZOLE (EC) 40 MG TAB PO SCH ×2 (05:21→17:09)
[2018-07-15] MEDS: VANCOMYCIN HCL 250 MG/5ML POSYG PO SCH ×4 (05:21→23:52)
[2018-07-15] MEDS: HYDROCODONE/APAP (5/325) TAB PO PRN ×2 (07:38→14:45)
[2018-07-15] MEDS: DOXYCYCLINE 100 MG in SOD CHLORIDE 0.9% 250 ML IVPB SCH ×2 (08:40→20:45)
[2018-07-15] MEDS: LACTULOSE 30ML CUP PO SCH ×2 (08:41→20:45)
[2018-07-15] MEDS: RIFAXIMIN 200 MG TAB PO SCH ×3 (08:41→20:52)
[2018-07-15] MEDS: MIDODRINE 5 MG TAB PO SCH ×3 (08:45→20:51)
--- NOTE | 2018-07-15 11:11 | PN ---
Date/Time of Note Date/Time of Note DATE: 07/15/18 TIME: 11:09 Assessment/Plan VTE Prophylaxis Risk score (from Ns)>0 risk: 5 SCD applied (from Ns): Yes Pharmacological prophylaxis: heparin Lines/Catheters IV Catheter Type (from Nrsg): Mid Line Urinary Cath still in place: No Assessment/Plan Hospital Course 48 yo female with cirrhosis, sepsis with bacteremia, C Diff colitis and large foot wound Foot wound - Abx per ID - Podiatry to debride on Wednesday. She will require FFP and platelets prior to OR - MRI foot pending SBP with klebsiella bacteremia: - Abx course per ID Cirrhosis: - Repeat paracentesis - resume diuretics - rifaxamin/lactulose C Diff diarrhea: - PO vanco course Hyponatremia: - Hypervolemic Limit free water. Loop diuretics may help PT/OT DIscharge to SNF when stable Result Diagram: 07/15/18 0435 07/15/18 0435 Results 24hrs Laboratory Tests Test 07/15/18 04:35 White Blood Count 12.9 H Red Blood Count 2.35 L Hemoglobin 8.5 L Hematocrit 25.8 L Mean Corpuscular Volume 109.8 H Mean Corpuscular Hemoglobin 36.2 H Mean Corpuscular Hemoglobin Concent 32.9 Red Cell Distribution Width 19.5 H Platelet Count 51 #L Mean Platelet Volume 10.2 Immature Granulocytes % 3.300 H Neutrophils % 69.5 Lymphocytes % 16.3 Monocytes % 9.3 Eosinophils % 1.2 Basophils % 0.4 Nucleated Red Blood Cells % 0.0 Immature Granulocytes # 0.430 H Neutrophils # 9.0 H Lymphocytes # 2.1 Monocytes # 1.2 H Eosinophils # 0.2 Basophils # 0.1 Nucleated Red Blood Cells # 0.0 Sodium Level 130 L Potassium Level 4.1 Chloride Level 98 Carbon Dioxide Level 22 Anion Gap 10 Blood Urea Nitrogen 19 Creatinine 0.51 Est Glomerular Filtrat Rate mL/min > 60 Glucose Level 63 #L Calcium Level 8.4 Total Bilirubin 7.8 H Direct Bilirubin 2.60 H Indirect Bilirubin 5.2 H Aspartate Amino Transf (AST/SGOT) 96 H Alanine Aminotransferase (ALT/SGPT) 46 Alkaline Phosphatase 101 Total Protein 6.3 Albumin 2.3 L Globulin 4.00 H Albumin/Globulin Ratio 0.57 Subjective 24 Hr Interval Summary Free Text/Dictation Complains of worsening abdominal distension and discomfort from size Otherwise stable Frequent stools Exam/Review of Systems Exam Vitals Vital Signs Date Temp Pulse Resp B/P (MAP) Pulse Ox O2 O2 Flow FiO2 Time Delivery Rate 07/15/18 98.0 93 18 101/55 98 Room Air 08:46 (70) Intake and Output 07/14/18 07/14/18 07/15/18 1515:00 23:00 07:00 IntakeIntake Total 300 ml 100 ml 250 ml OutputOutput Total 0 ml BalanceBalance 300 ml 100 ml 250 ml Exam Jaundiced Alert, mild HE on exam No asterixis RRR Abdomen distended, mildly tender in LLQ Edema of legs L foot wound dressed Results Results 24hrs Laboratory Tests Test 07/15/18 04:35 White Blood Count 12.9 H Red Blood Count 2.35 L Hemoglobin 8.5 L Hematocrit 25.8 L Mean Corpuscular Volume 109.8 H Mean Corpuscular Hemoglobin 36.2 H Mean Corpuscular Hemoglobin Concent 32.9 Red Cell Distribution Width 19.5 H Platelet Count 51 #L Mean Platelet Volume 10.2 Immature Granulocytes % 3.300 H Neutrophils % 69.5 Lymphocytes % 16.3 Monocytes % 9.3 Eosinophils % 1.2 Basophils % 0.4 Nucleated Red Blood Cells % 0.0 Immature Granulocytes # 0.430 H Neutrophils # 9.0 H Lymphocytes # 2.1 Monocytes # 1.2 H Eosinophils # 0.2 Basophils # 0.1 Nucleated Red Blood Cells # 0.0 Sodium Level 130 L Potassium Level 4.1 Chloride Level 98 Carbon Dioxide Level 22 Anion Gap 10 Blood Urea Nitrogen 19 Creatinine 0.51 Est Glomerular Filtrat Rate mL/min > 60 Glucose Level 63 #L Calcium Level 8.4 Total Bilirubin 7.8 H Direct Bilirubin 2.60 H Indirect Bilirubin 5.2 H Aspartate Amino Transf (AST/SGOT) 96 H Alanine Aminotransferase (ALT/SGPT) 46 Alkaline Phosphatase 101 Total Protein 6.3 Albumin 2.3 L Globulin 4.00 H Albumin/Globulin Ratio 0.57 Medications Medication Current Medications IV Flush (NS 3 ml) 3 ml PER PROTOCOL IV ; Start 07/04/18 at 18:30 Ondansetron HCl (Zofran Inj) 4 mg Q6H PRN IV NAUSEA/VOMITING Last administered on 07/09/18at 00:28; Admin Dose 4 MG; Start 07/04/18 at 18:30 Docusate Sodium (Colace) 100 mg Q12H PRN PO .CONSTIPATION; Start 07/04/18 at 18:30 Albuterol (Proventil 0.083% (Neb)) 2.5 mg Q4H RESP THERAPY PRN HHN SHORTNESS OF BREATH; Start 07/04/18 at 18:30 Metoclopramide HCl (Reglan) 5 mg Q6H PRN IV NAUSEA Last administered on 07/13/18 00:27; Admin Dose 5 MG; Start 07/05/18 at 10:00 Midodrine (Proamatine) 10 mg TID PO Last administered on 07/15/18 08:45; Admin Dose 10 MG; Start 07/06/18 at 09:00 Albuterol (Ventolin Hfa) 2 puff Q4 INH Last administered on 07/15/18 08:41; Admin Dose 2 PUFF; Start 07/06/18 at 04:30 Ondansetron HCl (Zofran Odt) 4 mg Q6H PRN ODT NAUSEA AND/OR VOMITING; Start 07/06/18 at 04:00 Pantoprazole (Protonix Tab) 40 mg BID@0600,1800 PO Last administered on 07/15/18 05:21; Admin Dose 40 MG; Start 07/06/18 at 06:00 Vancomycin HCl (Vancomycin Oral Syringe) 125 mg Q6 PO Last administered on 07/15/18 05:21; Admin Dose 125 MG; Start 07/07/18 at 18:00 Doxycycline Hyclate 100 mg/ Sodium Chloride 250 ml @ 250 mls/hr Q12 IVPB Last administered on 07/15/18 08:40; Admin Dose 250 MLS/HR; Start 07/08/18 at 21:00 Lactulose (Enulose) 10 gm BID PO Last administered on 07/15/18 08:41; Admin Dose 10 GM; Start 07/09/18 at 11:00 Rifaximin (Xifaxan) 200 mg TID PO Last administered on 07/15/18 08:41; Admin Dose 200 MG; Start 07/09/18 at 21:00 Ertapenem 1 gm/ Sodium Chloride 100 ml @ 200 mls/hr Q24H IVPB Last administered on 07/14/18 16:16; Admin Dose 200 MLS/HR; Start 07/14/18 at 14:00 Acetaminophen/ Hydrocodone Bitart ([place] (5/325)) 1 tab Q6H PRN PO MODERATE PAIN LEVEL 4-6 Last administered on 07/15/18at 07:38; Admin Dose 1 TAB; Start 07/14/18 at 17:30 MARIA DEL CARMEN BENITES MD Jul 15, 2018 11:11
--- NOTE | 2018-07-15 11:20 | CONS ---
Assessment/Plan Assessment/Plan Hospital Course (Demo Recall) All noted, no fevers, nad Microbiology: Blood culture grew Klebsiella pneumonia on July 04 susceptible to Cipro and Levaquin, stool for C. difficile positive, urine culture negative MRSA swab negative Antimicrobials: Invanz, Doxycycline, oral vancomycin Physical examination: Chronically ill-appearing middle-aged woman who is in no distress. Head atraumatic normocephalic sclera nonicteric vehicle mucosa dry neck is supple chest rise symmetrical breath sounds diminished at bases. Heart: S1-S2. Abdomen soft bowel sounds present extremities with bilateral edema, left lower extremity dressing intact Assessment: 1. Sepsis with Klebsiella pneumonia bacteremia likely secondary to SBP vs #2 2. Left lower extremity abscess/ cellulitis==> neg OM 3. C. difficile colitis 4. Alcoholic liver cirrhosis 5. Recurrent ascites 6. Anemia and thrombocytopenia Plan: Clinically unchanged, pending paracentesis, will order cultures and cytology, continue abx, wound care per podiatry recommendations Consultation Date/Type/Reason Admit Date/Time Jul 04, 2018 at 14:22 Initial Consult Date 07/07/18 Type of Consult id Requesting Provider: ANA SPICER Date/Time of Note DATE: 07/15/18 TIME: 11:19 Exam/Review of Systems Exam Vitals Vital Signs Date Temp Pulse Resp B/P (MAP) Pulse Ox O2 O2 Flow FiO2 Time Delivery Rate 07/15/18 98.0 93 18 101/55 98 Room Air 08:46 (70) Intake and Output 07/14/18 07/14/18 07/15/18 1414:59 22:59 06:59 IntakeIntake Total 300 ml 100 ml 250 ml OutputOutput Total 0 ml BalanceBalance 300 ml 100 ml 250 ml Results Result Diagram: 07/15/18 0435 07/15/18 0435 Results 24hrs Laboratory Tests Test 07/15/18 04:35 White Blood Count 12.9 H Red Blood Count 2.35 L Hemoglobin 8.5 L Hematocrit 25.8 L Mean Corpuscular Volume 109.8 H Mean Corpuscular Hemoglobin 36.2 H Mean Corpuscular Hemoglobin Concent 32.9 Red Cell Distribution Width 19.5 H Platelet Count 51 #L Mean Platelet Volume 10.2 Immature Granulocytes % 3.300 H Neutrophils % 69.5 Lymphocytes % 16.3 Monocytes % 9.3 Eosinophils % 1.2 Basophils % 0.4 Nucleated Red Blood Cells % 0.0 Immature Granulocytes # 0.430 H Neutrophils # 9.0 H Lymphocytes # 2.1 Monocytes # 1.2 H Eosinophils # 0.2 Basophils # 0.1 Nucleated Red Blood Cells # 0.0 Sodium Level 130 L Potassium Level 4.1 Chloride Level 98 Carbon Dioxide Level 22 Anion Gap 10 Blood Urea Nitrogen 19 Creatinine 0.51 Est Glomerular Filtrat Rate mL/min > 60 Glucose Level 63 #L Calcium Level 8.4 Total Bilirubin 7.8 H Direct Bilirubin 2.60 H Indirect Bilirubin 5.2 H Aspartate Amino Transf (AST/SGOT) 96 H Alanine Aminotransferase (ALT/SGPT) 46 Alkaline Phosphatase 101 Total Protein 6.3 Albumin 2.3 L Globulin 4.00 H Albumin/Globulin Ratio 0.57 Medications Medication Current Medications IV Flush (NS 3 ml) 3 ml PER PROTOCOL IV ; Start 07/04/18 at 18:30 Ondansetron HCl (Zofran Inj) 4 mg Q6H PRN IV NAUSEA/VOMITING Last administered on 07/09/18 00:28; Admin Dose 4 MG; Start 07/04/18 at 18:30 Docusate Sodium (Colace) 100 mg Q12H PRN PO .CONSTIPATION; Start 07/04/18 at 18:30 Albuterol (Proventil 0.083% (Neb)) 2.5 mg Q4H RESP THERAPY PRN HHN SHORTNESS OF BREATH; Start 07/04/18 at 18:30 Metoclopramide HCl (Reglan) 5 mg Q6H PRN IV NAUSEA Last administered on 00:27; Admin Dose 5 MG; Start 07/05/18 at 10:00 Midodrine (Proamatine) 10 mg TID PO Last administered on 07/15/18 08:45; Admin Dose 10 MG; Start 07/06/18 at 09:00 Albuterol (Ventolin Hfa) 2 puff Q4 INH Last administered on 07/15/18 08:41; Admin Dose 2 PUFF; Start 07/06/18 at 04:30 Ondansetron HCl (Zofran Odt) 4 mg Q6H PRN ODT NAUSEA AND/OR VOMITING; Start 07/06/18 at 04:00 Pantoprazole (Protonix Tab) 40 mg BID@0600,1800 PO Last administered on 07/15/18 05:21; Admin Dose 40 MG; Start 07/06/18 at 06:00 Vancomycin HCl (Vancomycin Oral Syringe) 125 mg Q6 PO Last administered on 07/15/18 05:21; Admin Dose 125 MG; Start 07/07/18 at 18:00 Doxycycline Hyclate 100 mg/ Sodium Chloride 250 ml @ 250 mls/hr Q12 IVPB Last administered on 07/15/18 08:40; Admin Dose 250 MLS/HR; Start 07/08/18 at 21:00 Lactulose (Enulose) 10 gm BID PO Last administered on 07/15/18 08:41; Admin Dose 10 GM; Start 07/09/18 at 11:00 Rifaximin (Xifaxan) 200 mg TID PO Last administered on 07/15/18 08:41; Admin Do se 200 MG; Start 07/09/18 at 21:00 Ertapenem 1 gm/ Sodium Chloride 100 ml @ 200 mls/hr Q24H IVPB Last administered on 07/14/18 16:16; Admin Dose 200 MLS/HR; Start 07/14/18 at 14:00 Acetaminophen/ Hydrocodone Bitart ([place] (5/325)) 1 tab Q6H PRN PO MODERATE PAIN LEVEL 4-6 Last administered on 07/15/18 07:38; Admin Dose 1 TAB; Start 07/14/18 at 17:30 Phytonadione (Vitamin K) 10 mg ONCE ONCE PO ; Start 07/15/18 at 11:30; Stop 07/15/18 at 11:31 EMA MUELLER NP Jul 15, 2018 11:20
[2018-07-15] MEDS ORDERED: PHYTONADIONE (1 MG/ML PO SYG) PO ONE (11:30)
--- NOTE | 2018-07-15 11:50 | CONS ---
Assessment/Plan Assessment/Plan Assessment/Plan 48 yo Female with 1) DEBRA in the setting of Sepsis and hemodynamic changes, HRS, More Likely Pre- renal azotemia and Intravascular Volume Depletion, Not ATN 2) Hyponatremia in Chronic Liver disease, S/p Paracentesis 3) Hyperkalemia Resolved 4) CDiff Diarrhea 5) Lower extremity Cellulitis 6) Abdominal Pain 7) Hyponatremia Improved Na Debra Resolved Cont current Rx and plan Free H20 Restricted diet Consultation Date/Type/Reason Admit Date/Time Jul 04, 2018 at 14:22 Type of Consult Nephrology Date/Time of Note DATE: 07/15/18 TIME: 11:44 Hx of Present Illness No new complaints, Constitutional: No requiring O2 Exam/Review of Systems Vital Signs Vitals Vital Signs Date Temp Pulse Resp B/P (MAP) Pulse Ox O2 O2 Flow FiO2 Time Delivery Rate 07/15/18 98.0 93 18 101/55 98 Room Air 08:46 (70) Intake and Output 07/14/18 07/14/18 07/15/18 1515:00 23:00 07:00 IntakeIntake Total 300 ml 100 ml 250 ml OutputOutput Total 0 ml BalanceBalance 300 ml 100 ml 250 ml Exam Constitutional: No distress ENMT: mucosa pink and moist Respiratory: No labored breathing Cardiovascular: edema Gastrointestinal: ascites Extremities: pitting pedal edema 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: No confused, No lethargic Skin: No diaphoresis Labs Result Diagram: 07/15/185 07/15/18 0435 Results 24hrs Laboratory Tests Test 07/15/18 04:35 White Blood Count 12.9 H Red Blood Count 2.35 L Hemoglobin 8.5 L Hematocrit 25.8 L Mean Corpuscular Volume 109.8 H Mean Corpuscular Hemoglobin 36.2 H Mean Corpuscular Hemoglobin Concent 32.9 Red Cell Distribution Width 19.5 H Platelet Count 51 #L Mean Platelet Volume 10.2 Immature Granulocytes % 3.300 H Neutrophils % 69.5 Lymphocytes % 16.3 Monocytes % 9.3 Eosinophils % 1.2 Basophils % 0.4 Nucleated Red Blood Cells % 0.0 Immature Granulocytes # 0.430 H Neutrophils # 9.0 H Lymphocytes # 2.1 Monocytes # 1.2 H Eosinophils # 0.2 Basophils # 0.1 Nucleated Red Blood Cells # 0.0 Sodium Level 130 L Potassium Level 4.1 Chloride Level 98 Carbon Dioxide Level 22 Anion Gap 10 Blood Urea Nitrogen 19 Creatinine 0.51 Est Glomerular Filtrat Rate mL/min > 60 Glucose Level 63 #L Calcium Level 8.4 Total Bilirubin 7.8 H Direct Bilirubin 2.60 H Indirect Bilirubin 5.2 H Aspartate Amino Transf (AST/SGOT) 96 H Alanine Aminotransferase (ALT/SGPT) 46 Alkaline Phosphatase 101 Total Protein 6.3 Albumin 2.3 L Globulin 4.00 H Albumin/Globulin Ratio 0.57 Medications Medications Current Medications IV Flush (NS 3 ml) 3 ml PER PROTOCOL IV ; Start 07/04/18 at 18:30 Ondansetron HCl (Zofran Inj) 4 mg Q6H PRN IV NAUSEA/VOMITING Last administered on 07/09/18 00:28; Admin Dose 4 MG; Start 07/04/18 at 18:30 Docusate Sodium (Colace) 100 mg Q12H PRN PO .CONSTIPATION; Start 07/04/18 at 18:30 Albuterol (Proventil 0.083% (Neb)) 2.5 mg Q4H RESP THERAPY PRN HHN SHORTNESS OF BREATH; Start 07/04/18 at 18:30 Metoclopramide HCl (Reglan) 5 mg Q6H PRN IV NAUSEA Last administered on 07/13/18 00:27; Admin Dose 5 MG; Start 07/05/18 at 10:00 Midodrine (Proamatine) 10 mg TID PO Last administered on 07/15/18 08:45; Admin Dose 10 MG; Start 07/06/18 at 09:00 Albuterol (Ventolin Hfa) 2 puff Q4 INH Last administered on 07/15/18 08:41; Admin Dose 2 PUFF; Start 07/06/18 at 04:30 Ondansetron HCl (Zofran Odt) 4 mg Q6H PRN ODT NAUSEA AND/OR VOMITING; Start 07/06/18 at 04:00 Pantoprazole (Protonix Tab) 40 mg BID@0600,1800 PO Last administered on 07/15/18 05:21; Admin Dose 40 MG; Start 07/06/18 at 06:00 Vancomycin HCl (Vancomycin Oral Syringe) 125 mg Q6 PO Last administered on 07/15/18 05:21; Admin Dose 125 MG; Start 07/07/18 at 18:00 Doxycycline Hyclate 100 mg/ Sodium Chloride 250 ml @ 250 mls/hr Q12 IVPB Last administered on 07/15/18 08:40; Admin Dose 250 MLS/HR; Start 07/08/18 at 21:00 Lactulose (Enulose) 10 gm BID PO Last administered on 07/15/18 08:41; Admin Dose 10 GM; Start 07/09/18 at 11:00 Rifaximin (Xifaxan) 200 mg TID PO Last administered on 07/15/18 08:41; Admin Dose 200 MG; Start 07/09/18 at 21:00 Ertapenem 1 gm/ Sodium Chloride 100 ml @ 200 mls/hr Q24H IVPB Last administered on 07/14/18at 16:16; Admin Dose 200 MLS/HR; Start 07/14/18 at 14:00 Acetaminophen/ Hydrocodone Bitart ([place] (5/325)) 1 tab Q6H PRN PO MODERATE PAIN LEVEL 4-6 Last administered on 07/15/18at 07:38; Admin Dose 1 TAB; Start 07/14/18 at 17:30 PARRIS THOMAS MD Jul 15, 2018 11:49
[2018-07-15] MEDS ORDERED: LIDOCAINE 1% (MPF) 5 ML VIAL ONE (14:10)
[2018-07-15] MEDS: ERTAPENEM SODIUM 1 GM in SOD CHLORIDE 0.9% 100 ML IVPB SCH (14:45)
[2018-07-16] MEDS: SODIUM HYPOCHLORITE (1/40) 1 APPLIC BTL IRR SCH ×2 (00:04→09:00)
[2018-07-16] MEDS: HYDROCODONE/APAP (5/325) TAB PO PRN ×3 (00:05→20:08)
[2018-07-16] MEDS: ALBUTEROL HFA 8 GM INHALER INH SCH ×6 (01:15→20:57)
[2018-07-16 02:00] VITALS: BP 86/56; PULSE 94; RESP 18
[2018-07-16 05:04] VITALS: BP 94/52
[2018-07-16] MEDS: PANTOPRAZOLE (EC) 40 MG TAB PO SCH ×2 (05:42→17:39)
[2018-07-16] MEDS: VANCOMYCIN HCL 250 MG/5ML POSYG PO SCH ×2 (05:43→11:56)
[2018-07-16 08:13] VITALS: BP 84/50; PULSE 96; RESP 18
[2018-07-16] MEDS: DOXYCYCLINE 100 MG in SOD CHLORIDE 0.9% 250 ML IVPB SCH ×2 (08:53→20:52)
[2018-07-16] MEDS: RIFAXIMIN 200 MG TAB PO SCH ×3 (08:54→20:52)
[2018-07-16] MEDS: LACTULOSE 30ML CUP PO SCH ×2 (08:54→20:51)
[2018-07-16] MEDS: MIDODRINE 5 MG TAB PO SCH ×3 (08:54→20:53)
[2018-07-16] MEDS ORDERED: SODIUM HYPOCHLORITE (1/40) 1 APPLIC BTL IRR SCH (09:00)
--- NOTE | 2018-07-16 11:23 | PN ---
Date/Time of Note Date/Time of Note DATE: 07/16/18 TIME: 11:21 Assessment/Plan VTE Prophylaxis Risk score (from [facility])>0 risk: 5 SCD applied (from [facility]): Yes Pharmacological prophylaxis: NA/contraindicated Pharm contraindication: other (pl see med list) Lines/Catheters IV C[facility]ter Type (from [facility] Mid Line Urinary Cath still in place: No Assessment/Plan Assessment/Plan 1) PATTIE in the setting of Sepsis and hemodynamic changes, HRS, More Likely Pre- renal azotemia and Intravascular Volume Depletion, Not ATN 2) Hyponatremia in Chronic Liver disease, S/p Paracentesis 3) Hyperkalemia Resolved 4) CDiff Diarrhea 5) Lower extremity Cellulitis 6) Abdominal Pain 7) Hyponatremia [id number] stable na non oliguric stable creat Result Diagram: 07/16/1853607/16/18536 Results 24hrs Laboratory Tests Test 07/15/18 14:00 07/16/18 00:52 07/16/18 05:37 Body Fluid Type PARACENTHESIS Body Fluid Volume 1050.0 Body Fluid Color YELLOW Body Fluid Appearance CLEAR Body Fluid WBC 49 Body Fluid RBC (Auto) 0 Body Fluid Polynuclear WBCs (%) 14.3 Body Fluid Mononuclear Cells % Auto 85.7 Urine Osmolality 625 Urine Random Sodium < 13 L White Blood Count 9.2 # Red Blood Count 2.03 L Hemoglobin 7.3 L Hematocrit 22.4 L Mean Corpuscular Volume 110.3 H Mean Corpuscular Hemoglobin 36.0 H Mean Corpuscular Hemoglobin Concent 32.6 Red Cell Distribution Width 19.5 H Platelet Count 43 L Mean Platelet Volume 11.6 H Immature Granulocytes % 2.400 H Neutrophils % 66.0 Lymphocytes % 18.2 Monocytes % 11.8 H Eosinophils % 1.1 Basophils % 0.5 Nucleated Red Blood Cells % 0.2 H Immature Granulocytes # 0.220 H Neutrophils # 6.1 Lymphocytes # 1.7 Monocytes # 1.1 H Eosinophils # 0.1 Basophils # 0.1 Nucleated Red Blood Cells # 0.0 Prothrombin Time 27.6 H Prothrombin Time Ratio 2.2 INR International Normalized Ratio 2.56 Sodium Level 129 L Potassium Level 4.2 Chloride Level 104 Carbon Dioxide Level 22 Anion Gap 3 L Blood Urea Nitrogen 17 Creatinine 0.44 Est Glomerular Filtrat Rate mL/min > 60 Glucose Level 111 # Calcium Level 7.6 L Total Bilirubin 6.0 H Direct Bilirubin 1.70 #H Indirect Bilirubin 4.3 H Aspartate Amino Transf (AST/SGOT) 80 H Alanine Aminotransferase (ALT/SGPT) 41 Alkaline Phosphatase 80 Total Protein 5.4 L Albumin 1.9 L Globulin 3.50 H Albumin/Globulin Ratio 0.54 Exam/Review of Systems Exam Vitals Vital Signs Date Temp Pulse Resp B/P (MAP) Pulse Ox O2 O2 Flow FiO2 Time Delivery Rate 07/16/18 98.7 96 18 84/50 (61) 95 Room Air 08:13 Intake and Output 07/15/18 07/15/18 07/16/18 1515:00 23:00 07:00 IntakeIntake Total 610 ml 670 ml OutputOutput Total 0 ml BalanceBalance 610 ml 670 ml Constitutional: alert, oriented Neck: supple, non-tender Respiratory: clear to auscultation, normal air movement Cardiovascular: regular rate and rhythm Gastrointestinal: soft, non-tender Extremities: edema Results Results 24hrs Laboratory Tests Test 07/15/18 14:00 07/16/18 00:52 07/16/18 05:37 Body Fluid Type PARACENTHESIS Body Fluid Volume 1050.0 Body Fluid Color YELLOW Body Fluid Appearance CLEAR Body Fluid WBC 49 Body Fluid RBC (Auto) 0 Body Fluid Polynuclear WBCs (%) 14.3 Body Fluid Mononuclear Cells % Auto 85.7 Urine Osmolality 625 Urine Random Sodium < 13 L White Blood Count 9.2 # Red Blood Count 2.03 L Hemoglobin 7.3 L Hematocrit 22.4 L Mean Corpuscular Volume 110.3 H Mean Corpuscular Hemoglobin 36.0 H Mean Corpuscular Hemoglobin Concent 32.6 Red Cell Distribution Width 19.5 H Platelet Count 43 L Mean Platelet Volume 11.6 H Immature Granulocytes % 2.400 H Neutrophils % 66.0 Lymphocytes % 18.2 Monocytes % 11.8 H Eosinophils % 1.1 Basophils % 0.5 Nucleated Red Blood Cells % 0.2 H Immature Granulocytes # 0.220 H Neutrophils # 6.1 Lymphocytes # 1.7 Monocytes # 1.1 H Eosinophils # 0.1 Basophils # 0.1 Nucleated Red Blood Cells # 0.0 Prothrombin Time 27.6 H Prothrombin Time Ratio 2.2 INR International Normalized Ratio 2.56 Sodium Level 129 L Potassium Level 4.2 Chloride Level 104 Carbon Dioxide Level 22 Anion Gap 3 L Blood Urea Nitrogen 17 Creatinine 0.44 Est Glomerular Filtrat Rate mL/min > 60 Glucose Level 111 # Calcium Level 7.6 L Total Bilirubin 6.0 H Direct Bilirubin 1.70 #H Indirect Bilirubin 4.3 H Aspartate Amino Transf (AST/SGOT) 80 H Alanine Aminotransferase (ALT/SGPT) 41 Alkaline Phosphatase 80 Total Protein 5.4 L Albumin 1.9 L Globulin 3.50 H Albumin/Globulin Ratio 0.54 Medications Medication Current Medications IV Flush (NS 3 ml) 3 ml PER PROTOCOL IV ; Start 07/04/18 at 18:30 Ondansetron HCl (Zofran Inj) 4 mg Q6H PRN IV NAUSEA/VOMITING Last administered on 07/09/18 00:28; Admin Dose 4 MG; Start 07/04/18 at 18:30 Docusate Sodium (Colace) 100 mg Q12H PRN PO .CONSTIPATION; Start 07/04/18 at 18:30 Albuterol (Proventil 0.083% (Neb)) 2.5 mg Q4H RESP THERAPY PRN HHN SHORTNESS OF BREATH; Start 07/04/18 at 18:30 Metoclopramide HCl (Reglan) 5 mg Q6H PRN IV NAUSEA Last administered on 07/13/18 00:27; Admin Dose 5 MG; Start 07/05/18 at 10:00 Midodrine (Proamatine) 10 mg TID PO Last administered on 07/16/18at 08:54; Admin Dose 10 MG; Start 07/06/18 at 09:00 Albuterol (Ventolin Hfa) 2 puff Q4 INH Last administered on 07/16/18 05:43; Admin Dose 2 PUFF; Start 07/06/18 at 04:30 Ondansetron HCl (Zofran Odt) 4 mg Q6H PRN ODT NAUSEA AND/OR VOMITING; Start 07/06/18 at 04:00 Pantoprazole (Protonix Tab) 40 mg BID@0600,1800 PO Last administered on 07/16/18 05:42; Admin Dose 40 MG; Start 07/06/18 at 06:00 Vancomycin HCl (Vancomycin Oral Syringe) 125 mg Q6 PO Last administered on 07/16/18 05:43; Admin Dose 125 MG; Start 07/07/18 at 18:00 Doxycycline Hyclate 100 mg/ Sodium Chloride 250 ml @ 250 mls/hr Q12 IVPB Last administered on 07/16/18 08:53; Admin Dose 250 MLS/HR; Start 07/08/18 at 21:00 Lactulose (Enulose) 10 gm BID PO Last administered on 07/16/18 08:54; Admin Dose 10 GM; Start 07/09/18 at 11:00 Rifaximin (Xifaxan) 200 mg TID PO Last administered on 07/16/18 08:54; Admin Dose 200 MG; Start 07/09/18 at 21:00 Ertapenem 1 gm/ Sodium Chloride 100 ml @ 200 mls/hr Q24H IVPB Last administered on 07/15/18 14:45; Admin Dose 200 MLS/HR; Start 07/14/18 at 14:00 Acetaminophen/ Hydrocodone Bitart ([place] (5/325)) 1 tab Q6H PRN PO MODERATE PAIN LEVEL 4-6 Last administered on 07/16/18 00:05; Admin Dose 1 TAB; Start 07/14/18 at 17:30 Sodium Hypochlorite ([place] ([place] 1/40)) 1 applic DAILY IRR Last administered on 07/16/18 00:04; Admin Dose 1 APPLIC; Start 07/15/18 at 23:45 NIMESH POE MD Jul 16, 2018 11:23
--- NOTE | 2018-07-16 12:12 | CONS ---
Assessment/Plan Assessment/Plan Hospital Course (Demo Recall) All noted, no fevers, nad Microbiology: Blood culture grew Klebsiella pneumonia on July 04 susceptible to Cipro and Levaquin, stool for C. difficile positive, urine culture negative MRSA swab negative Antimicrobials: Invanz, Doxycycline, oral vancomycin Physical examination: Chronically ill-appearing middle-aged woman who is in no distress. Head atraumatic normocephalic sclera nonicteric vehicle mucosa dry neck is supple chest rise symmetrical breath sounds diminished at bases. Heart: S1-S2. Abdomen soft bowel sounds present extremities with bilateral edema, left lower extremity dressing intact Assessment: 1. Sepsis with Klebsiella pneumonia bacteremia likely secondary to SBP vs #2 2. Left lower extremity abscess/ cellulitis==> neg OM 3. C. difficile colitis 4. Alcoholic liver cirrhosis 5. Recurrent ascites 6. Anemia and thrombocytopenia Plan: Clinically unchanged, s/p paracentesis yesterday==> no evidence for SBP per cytology, continue abx, wound care per podiatry recommendations Consultation Date/Type/Reason Admit Date/Time Jul 04, 2018 at 14:22 Initial Consult Date 07/07/18 Type of Consult id Requesting Provider: ANA SPICER Date/Time of Note DATE: 07/16/18 TIME: 12:11 Exam/Review of Systems Exam Vitals Vital Signs Date Temp Pulse Resp B/P (MAP) Pulse Ox O2 O2 Flow FiO2 Time Delivery Rate 07/16/18 98.7 96 18 84/50 (61) 95 Room Air 08:13 Intake and Output 07/15/18 07/15/18 07/16/18 1515:00 23:00 07:00 IntakeIntake Total 610 ml 670 ml OutputOutput Total 0 ml BalanceBalance 610 ml 670 ml Results Result Diagram: 07/16/18 0537 07/16/18 0537 Results 24hrs Laboratory Tests Test 07/15/18 14:00 07/16/18 00:52 07/16/18 05:37 Body Fluid Type PARACENTHESIS Body Fluid Volume 1050.0 Body Fluid Color YELLOW Body Fluid Appearance CLEAR Body Fluid WBC 49 Body Fluid RBC (Auto) 0 Body Fluid Polynuclear WBCs (%) 14.3 Body Fluid Mononuclear Cells % Auto 85.7 Urine Osmolality 625 Urine Random Sodium < 13 L White Blood Count 9.2 # Red Blood Count 2.03 L Hemoglobin 7.3 L Hematocrit 22.4 L Mean Corpuscular Volume 110.3 H Mean Corpuscular Hemoglobin 36.0 H Mean Corpuscular Hemoglobin Concent 32.6 Red Cell Distribution Width 19.5 H Platelet Count 43 L Mean Platelet Volume 11.6 H Immature Granulocytes % 2.400 H Neutrophils % 66.0 Lymphocytes % 18.2 Monocytes % 11.8 H Eosinophils % 1.1 Basophils % 0.5 Nucleated Red Blood Cells % 0.2 H Immature Granulocytes # 0.220 H Neutrophils # 6.1 Lymphocytes # 1.7 Monocytes # 1.1 H Eosinophils # 0.1 Basophils # 0.1 Nucleated Red Blood Cells # 0.0 Prothrombin Time 27.6 H Prothrombin Time Ratio 2.2 INR International Normalized Ratio 2.56 Sodium Level 129 L Potassium Level 4.2 Chloride Level 104 Carbon Dioxide Level 22 Anion Gap 3 L Blood Urea Nitrogen 17 Creatinine 0.44 Est Glomerular Filtrat Rate mL/min > 60 Glucose Level 111 # Calcium Level 7.6 L Total Bilirubin 6.0 H Direct Bilirubin 1.70 #H Indirect Bilirubin 4.3 H Aspartate Amino Transf (AST/SGOT) 80 H Alanine Aminotransferase (ALT/SGPT) 41 Alkaline Phosphatase 80 Total Protein 5.4 L Albumin 1.9 L Globulin 3.50 H Albumin/Globulin Ratio 0.54 Medications Medication Current Medications IV Flush (NS 3 ml) 3 ml PER PROTOCOL IV ; Start 07/04/18 at 18:30 Ondansetron HCl (Zofran Inj) 4 mg Q6H PRN IV NAUSEA/VOMITING Last administered on 07/09/18at 00:28; Admin Dose 4 MG; Start 07/04/18 at 18:30 Docusate Sodium (Colace) 100 mg Q12H PRN PO .CONSTIPATION; Start 07/04/18 at 18:30 Albuterol (Proventil 0.083% (Neb)) 2.5 mg Q4H RESP THERAPY PRN HHN SHORTNESS OF BREATH; Start 07/04/18 at 18:30 Metoclopramide HCl (Reglan) 5 mg Q6H PRN IV NAUSEA Last administered on 07/13/18at 00:27; Admin Dose 5 MG; Start 07/05/18 at 10:00 Midodrine (Proamatine) 10 mg TID PO Last administered on 07/16/18at 08:54; Admin Dose 10 MG; Start 07/06/18 at 09:00 Albuterol (Ventolin Hfa) 2 puff Q4 INH Last administered on 07/16/18 05:43; Admin Dose 2 PUFF; Start 07/06/18 at 04:30 Ondansetron HCl (Zofran Odt) 4 mg Q6H PRN ODT NAUSEA AND/OR VOMITING; Start 07/06/18 at 04:00 Pantoprazole (Protonix Tab) 40 mg BID@0600,1800 PO Last administered on 07/16/18 05:42; Admin Dose 40 MG; Start 07/06/18 at 06:00 Vancomycin HCl (Vancomycin Oral Syringe) 125 mg Q6 PO Last administered on 07/16/18 11:56; Admin Dose 125 MG; Start 07/07/18 at 18:00 Doxycycline Hyclate 100 mg/ Sodium Chloride 250 ml @ 250 mls/hr Q12 IVPB Last administered on 07/16/18 08:53; Admin Dose 250 MLS/HR; Start 07/08/18 at 21:00 Lactulose (Enulose) 10 gm BID PO Last administered on 07/16/18 08:54; Admin Dose 10 GM; Start 07/09/18 at 11:00 Rifaximin (Xifaxan) 200 mg TID PO Last administered on 07/16/18 08:54; Admin Dose 200 MG; Start 07/09/18 at 21:00 Ertapenem 1 gm/ Sodium Chloride 100 ml @ 200 mls/hr Q24H IVPB Last administered on 07/15/18 14:45; Admin Dose 200 MLS/HR; Start 07/14/18 at 14:00 Acetaminophen/ Hydrocodone Bitart ([place] (5/325)) 1 tab Q6H PRN PO MODERATE PAIN LEVEL 4-6 Last administered on 07/16/18 00:05; Admin Dose 1 TAB; Start 07/14/18 at 17:30 Sodium Hypochlorite ([place] ([place]il[place] 40)) 1 applic DAILY IRR Last administ ered on 07/16/18 00:04; Admin Dose 1 APPLIC; Start 07/15/18 at 23:45 EMA MUELLER NP Jul 16, 2018 12:12
[2018-07-16] MEDS: ERTAPENEM SODIUM 1 GM in SOD CHLORIDE 0.9% 100 ML IVPB SCH (13:18)
--- NOTE | 2018-07-16 14:21 | PN ---
Date/Time of Note Date/Time of Note DATE: 07/16/18 TIME: 14:19 Assessment/Plan VTE Prophylaxis Risk score (from Ns)>0 risk: 1 SCD applied (from Ns): Yes Pharmacological prophylaxis: heparin Lines/Catheters IV Catheter Type (from Nrs): Mid Line Urinary Cath still in place: No Assessment/Plan Hospital Course 48 yo female with cirrhosis, sepsis with bacteremia, C Diff colitis and large foot wound Foot wound - Podiatry to debride on Wednesday. She will require FFP and platelets prior to OR - MRI foot shows no evidence of OM SBP with klebsiella bacteremia: - Abx course per ID. Unclear duration recommended but seems ok to stop at this point Cirrhosis: - Repeat paracentesis - resume diuretics - rifaxamin/lactulose C Diff diarrhea: - s/p PO vanco course Hyponatremia: - Hypervolemic Limit free water. Loop diuretics may help PT/OT DIscharge to SNF when stable Result Diagram: 07/16/18 0537 07/16/18 0537 Results 24hrs Laboratory Tests Test 07/16/18 00:52 07/16/18 05:37 Urine Osmolality 625 Urine Random Sodium < 13 L White Blood Count 9.2 # Red Blood Count 2.03 L Hemoglobin 7.3 L Hematocrit 22.4 L Mean Corpuscular Volume 110.3 H Mean Corpuscular Hemoglobin 36.0 H Mean Corpuscular Hemoglobin Concent 32.6 Red Cell Distribution Width 19.5 H Platelet Count 43 L Mean Platelet Volume 11.6 H Immature Granulocytes % 2.400 H Neutrophils % 66.0 Lymphocytes % 18.2 Monocytes % 11.8 H Eosinophils % 1.1 Basophils % 0.5 Nucleated Red Blood Cells % 0.2 H Immature Granulocytes # 0.220 H Neutrophils # 6.1 Lymphocytes # 1.7 Monocytes # 1.1 H Eosinophils # 0.1 Basophils # 0.1 Nucleated Red Blood Cells # 0.0 Prothrombin Time 27.6 H Prothrombin Time Ratio 2.2 INR International Normalized Ratio 2.56 Sodium Level 129 L Potassium Level 4.2 Chloride Level 104 Carbon Dioxide Level 22 Anion Gap 3 L Blood Urea Nitrogen 17 Creatinine 0.44 Est Glomerular Filtrat Rate mL/min > 60 Glucose Level 111 # Calcium Level 7.6 L Total Bilirubin 6.0 H Direct Bilirubin 1.70 #H Indirect Bilirubin 4.3 H Aspartate Amino Transf (AST/SGOT) 80 H Alanine Aminotransferase (ALT/SGPT) 41 Alkaline Phosphatase 80 Total Protein 5.4 L Albumin 1.9 L Globulin 3.50 H Albumin/Globulin Ratio 0.54 Subjective 24 Hr Interval Summary Free Text/Dictation Underwent 5 L paracentesis yesterday Today feels well, no complaints Exam/Review of Systems Exam Vitals Vital Signs Date Temp Pulse Resp B/P (MAP) Pulse Ox O2 O2 Flow FiO2 Time Delivery Rate 07/16/18 98.7 96 18 84/50 (61) 95 Room Air 08:13 Intake and Output 07/15/18 07/15/18 07/16/18 1414:59 22:59 06:59 IntakeIntake Total 610 ml 670 ml OutputOutput Total 0 ml BalanceBalance 610 ml 670 ml Exam Alert and oriented No distress Abdomen less distended Jaundiced Mild edema Results Results 24hrs Laboratory Tests Test 07/16/18 00:52 07/16/18 05:37 Urine Osmolality 625 Urine Random Sodium < 13 L White Blood Count 9.2 # Red Blood Count 2.03 L Hemoglobin 7.3 L Hematocrit 22.4 L Mean Corpuscular Volume 110.3 H Mean Corpuscular Hemoglobin 36.0 H Mean Corpuscular Hemoglobin Concent 32.6 Red Cell Distribution Width 19.5 H Platelet Count 43 L Mean Platelet Volume 11.6 H Immature Granulocytes % 2.400 H Neutrophils % 66.0 Lymphocytes % 18.2 Monocytes % 11.8 H Eosinophils % 1.1 Basophils % 0.5 Nucleated Red Blood Cells % 0.2 H Immature Granulocytes # 0.220 H Neutrophils # 6.1 Lymphocytes # 1.7 Monocytes # 1.1 H Eosinophils # 0.1 Basophils # 0.1 Nucleated Red Blood Cells # 0.0 Prothrombin Time 27.6 H Prothrombin Time Ratio 2.2 INR International Normalized Ratio 2.56 Sodium Level 129 L Potassium Level 4.2 Chloride Level 104 Carbon Dioxide Level 22 Anion Gap 3 L Blood Urea Nitrogen 17 Creatinine 0.44 Est Glomerular Filtrat Rate mL/min > 60 Glucose Level 111 # Calcium Level 7.6 L Total Bilirubin 6.0 H Direct Bilirubin 1.70 #H Indirect Bilirubin 4.3 H Aspartate Amino Transf (AST/SGOT) 80 H Alanine Aminotransferase (ALT/SGPT) 41 Alkaline Phosphatase 80 Total Protein 5.4 L Albumin 1.9 L Globulin 3.50 H Albumin/Globulin Ratio 0.54 Medications Medication Current Medications IV Flush (NS 3 ml) 3 ml PER PROTOCOL IV ; Start 07/04/18 at 18:30 Ondansetron HCl (Zofran Inj) 4 mg Q6H PRN IV NAUSEA/VOMITING Last administered on 07/09/18 00:28; Admin Dose 4 MG; Start 07/04/18 at 18:30 Docusate Sodium (Colace) 100 mg Q12H PRN PO .CONSTIPATION; Start 07/04/18 at 18:30 Albuterol (Proventil 0.083% (Neb)) 2.5 mg Q4H RESP THERAPY PRN HHN SHORTNESS OF BREATH; Start 07/04/18 at 18:30 Metoclopramide HCl (Reglan) 5 mg Q6H PRN IV NAUSEA Last administered on 07/13/18 00:27; Admin Dose 5 MG; Start 07/05/18 at 10:00 Midodrine (Proamatine) 10 mg TID PO Last administered on 07/16/18 13:15; Admin Dose 10 MG; Start 07/06/18 at 09:00 Albuterol (Ventolin Hfa) 2 puff Q4 INH Last administered on 07/16/18 05:43; Admin Dose 2 PUFF; Start 07/06/18 at 04:30 Ondansetron HCl (Zofran Odt) 4 mg Q6H PRN ODT NAUSEA AND/OR VOMITING; Start 07/06/18 at 04:00 Pantoprazole (Protonix Tab) 40 mg BID@0600,1800 PO Last administered on 07/16/18 05:42; Admin Dose 40 MG; Start 07/06/18 at 06:00 Vancomycin HCl (Vancomycin Oral Syringe) 125 mg Q6 PO Last administered on 07/16/18 11:56; Admin Dose 125 MG; Start 07/07/18 at 18:00 Doxycycline Hyclate 100 mg/ Sodium Chloride 250 ml @ 250 mls/hr Q12 IVPB Last administered on 07/16/18 08:53; Admin Dose 250 MLS/HR; Start 07/08/18 at 21:00 Lactulose (Enulose) 10 gm BID PO Last administered on 07/16/18 08:54; Admin Dose 10 GM; Start 07/09/18 at 11:00 Rifaximin (Xifaxan) 200 mg TID PO Last administered on 07/16/18 13:16; Admin Dose 200 MG; Start 07/09/18 at 21:00 Ertapenem 1 gm/ Sodium Chloride 100 ml @ 200 mls/hr Q24H IVPB Last administered on 07/16/18 13:18; Admin Dose 200 MLS/HR; Start 07/14/18 at 14:00 Acetaminophen/ Hydrocodone Bitart ([place] (5/325)) 1 tab Q6H PRN PO MODERATE PAIN LEVEL 4-6 Last administered on 07/16/18at 13:15; Admin Dose 1 TAB; Start 07/14/18 at 17:30 Sodium Hypochlorite (Dakin'S (Dilute )) 1 applic DAILY IRR Last administer ed on 07/16/18 00:04; Admin Dose 1 APPLIC; Start 07/15/18 at 23:45 MARIA DEL CARMEN BENITES MD Jul 16, 2018 14:21
[2018-07-16 14:28] VITALS: BP 100/49; PULSE 96
[2018-07-16 20:00] VITALS: BP 100/49; PULSE 87
[2018-07-16] MEDS: ONDANSETRON 4 MG INJ IV PRN (20:08)
[2018-07-16] MEDS ORDERED: traZODone 50 MG TAB PO ONE (23:30)
[2018-07-17] VITALS (7 sets, daily range): BP systolic 85–93; BP diastolic 43–56; PULSE 86–93; RESP 17–18
[2018-07-17] MEDS: ALBUTEROL HFA 8 GM INHALER INH SCH ×6 (01:00→20:55)
[2018-07-17] MEDS ORDERED: SOD CHLORIDE 0.9% 1,000 ML IV ONE (01:30)
[2018-07-17] MEDS: PANTOPRAZOLE (EC) 40 MG TAB PO SCH ×2 (06:23→17:28)
[2018-07-17] MEDS: RIFAXIMIN 200 MG TAB PO SCH ×3 (09:06→20:55)
[2018-07-17] MEDS: HYDROCODONE/APAP (5/325) TAB PO PRN ×2 (09:06→15:03)
[2018-07-17] MEDS: DOXYCYCLINE 100 MG in SOD CHLORIDE 0.9% 250 ML IVPB SCH ×2 (09:07→20:51)
[2018-07-17] MEDS: MIDODRINE 5 MG TAB PO SCH ×3 (09:07→20:58)
[2018-07-17] MEDS: LACTULOSE 30ML CUP PO SCH ×2 (09:07→20:50)
[2018-07-17] MEDS: SODIUM HYPOCHLORITE (1/40) 1 APPLIC BTL IRR SCH (09:13)
--- NOTE | 2018-07-17 10:38 | PN ---
Date/Time of Note Date/Time of Note DATE: 07/17/18 TIME: 10:35 Assessment/Plan VTE Prophylaxis Risk score (from Ns)>0 risk: 1 Pharmacological prophylaxis: other (see list) Lines/Catheters Urinary Cath still in place: No Assessment/Plan Assessment/Plan 1) PATTIE in the setting of Sepsis and hemodynamic changes, HRS, More Likely Pre- renal azotemia and Intravascular Volume Depletion, Not ATN 2) Hyponatremia in Chronic Liver disease, S/p Paracentesis 3) Hyperkalemia Resolved 4) CDiff Diarrhea 5) Lower extremity Cellulitis 6) Abdominal Pain 7) Hyponatremia [id number] stable na no mentation change f/u labs Result Diagram: 07/16/1853607/16/18536 Exam/Review of Systems Exam Vitals Vital Signs Date Temp Pulse Resp B/P (MAP) Pulse Ox O2 O2 Flow FiO2 Time Delivery Rate 07/17/18 98.9 93 17 92/50 (64) 94 Room Air 08:48 Intake and Output 07/16/18 07/16/18 07/17/18 1515:00 23:00 07:00 IntakeIntake Total 650 ml 350 ml 200 ml OutputOutput Total 0 ml 0 ml 0 ml BalanceBalance 650 ml 350 ml 200 ml Constitutional: alert, oriented Psych: nl mood/affect Head: normocephalic Eyes: nl conjunctiva ENMT: nl external ears & nose Neck: supple, non-tender Respiratory: clear to auscultation, normal air movement Cardiovascular: regular rate and rhythm Gastrointestinal: soft Musculoskeletal: nl extremities to inspection Medications Medication Current Medications IV Flush (NS 3 ml) 3 ml PER PROTOCOL IV ; Start 07/04/18 at 18:30 Ondansetron HCl (Zofran Inj) 4 mg Q6H PRN IV NAUSEA/VOMITING Last administered on 07/16/18at 20:08; Admin Dose 4 MG; Start 07/04/18 at 18:30 Docusate Sodium (Colace) 100 mg Q12H PRN PO .CONSTIPATION; Start 07/04/18 at 18:30 Albuterol (Proventil 0.083% (Neb)) 2.5 mg Q4H RESP THERAPY PRN HHN SHORTNESS OF BREATH; Start 07/04/18 at 18:30 Metoclopramide HCl (Reglan) 5 mg Q6H PRN IV NAUSEA Last administered on 07/13/18 00:27; Admin Dose 5 MG; Start 07/05/18 at 10:00 Midodrine (Proamatine) 10 mg TID PO Last administered on 07/17/18 09:07; Admin Dose 10 MG; Start 07/06/18 at 09:00 Albuterol (Ventolin Hfa) 2 puff Q4 INH Last administered on 07/16/18 20:57; Admin Dose 2 PUFF; Start 07/06/18 at 04:30 Ondansetron HCl (Zofran Odt) 4 mg Q6H PRN ODT NAUSEA AND/OR VOMITING; Start 07/06/18 at 04:00 Pantoprazole (Protonix Tab) 40 mg BID@0600,1800 PO Last administered on 07/17/18 06:23; Admin Dose 40 MG; Start 07/06/18 at 06:00 Doxycycline Hyclate 100 mg/ Sodium Chloride 250 ml @ 250 mls/hr Q12 IVPB Last administered on 07/17/18 09:07; Admin Dose 250 MLS/HR; Start 07/08/18 at 21:00 Lactulose (Enulose) 10 gm BID PO Last administered on 07/17/18 09:07; Admin Dose 10 GM; Start 07/09/18 at 11:00 Rifaximin (Xifaxan) 200 mg TID PO Last administered on 07/17/18 09:06; Admin Dose 200 MG; Start 07/09/18 at 21:00 Ertapenem 1 gm/ Sodium Chloride 100 ml @ 200 mls/hr Q24H IVPB Last administered on 07/16/18 13:18; Admin Dose 200 MLS/HR; Start 07/14/18 at 14:00 Acetaminophen/ Hydrocodone Bitart ([place] (5/325)) 1 tab Q6H PRN PO MODERATE PAIN LEVEL 4-6 Last administered on 07/17/18 09:06; Admin Dose 1 TAB; Start 07/14/18 at 17:30 Sodium Hypochlorite (Dakin'S (Dilute 40)) 1 applic DAILY IRR Last administered on 07/17/18 09:13; Admin Dose 1 APPLIC; Start 07/15/18 at 23:45 Simethicone (Mylicon) 80 mg Q6H PRN PO DISTENSION/GAS/BLOATING Last administered on 07/16/18at 15:52; Admin Dose 80 MG; Start 07/16/18 at 15:30 NIMESH POE MD Jul 17, 2018 10:38
[2018-07-17] MEDS: ERTAPENEM SODIUM 1 GM in SOD CHLORIDE 0.9% 100 ML IVPB SCH (14:32)
--- NOTE | 2018-07-17 14:34 | PN ---
Date/Time of Note Date/Time of Note DATE: 07/17/18 TIME: 14:33 Assessment/Plan VTE Prophylaxis Risk score (from Ns)>0 risk: 1 Pharmacological prophylaxis: heparin Lines/Catheters Urinary Cath still in place: No Assessment/Plan Hospital Course 48 yo female with cirrhosis, sepsis with bacteremia, C Diff colitis and large foot wound Foot wound - Podiatry to debride on Wednesday. Will give FFP and platelets prior to OR tomorrow - MRI foot shows no evidence of OM SBP with klebsiella bacteremia: - Abx course per ID. Unclear duration recommended but seems ok to stop at this point Cirrhosis: - Repeat paracentesis - resume diuretics - rifaxamin/lactulose C Diff diarrhea: - s/p PO vanco course Hyponatremia: - Hypervolemic Limit free water. Loop diuretics may help PT/OT DIscharge to SNF when stable Result Diagram: 07/16/18 0537 07/16/1837 Subjective 24 Hr Interval Summary Free Text/Dictation No complaints Feels well Aware of plan for foot debridement tomorrow Exam/Review of Systems Exam Vitals Vital Signs Date Temp Pulse Resp B/P (MAP) Pulse Ox O2 O2 Flow FiO2 Time Delivery Rate 07/17/18 98.9 93 17 92/50 (64) 94 Room Air 08:48 Intake and Output 07/16/18 07/16/18 07/17/18 1515:00 23:00 07:00 IntakeIntake Total 650 ml 350 ml 200 ml OutputOutput Total 0 ml 0 ml 0 ml BalanceBalance 650 ml 350 ml 200 ml Exam Alert, no distress RRR Brehating comfortably Jaundiced Abdomen distended Foot wound wrapped Medications Medication Current Medications IV Flush (NS 3 ml) 3 ml PER PROTOCOL IV ; Start 07/04/18 at 18:30 Ondansetron HCl (Zofran Inj) 4 mg Q6H PRN IV NAUSEA/VOMITING Last administered on 07/16/18at 20:08; Admin Dose 4 MG; Start 07/04/18 at 18:30 Docusate Sodium (Colace) 100 mg Q12H PRN PO .CONSTIPATION; Start 07/04/18 at 18:30 Albuterol (Proventil 0.083% (Neb)) 2.5 mg Q4H RESP THERAPY PRN HHN SHORTNESS OF BREATH; Start 07/04/18 at 18:30 Metoclopramide HCl (Reglan) 5 mg Q6H PRN IV NAUSEA Last administered on 07/13/18 00:27; Admin Dose 5 MG; Start 07/05/18 at 10:00 Midodrine (Proamatine) 10 mg TID PO Last administered on 07/17/18 14:26; Admin Dose 10 MG; Start 07/06/18 at 09:00 Albuterol (Ventolin Hfa) 2 puff Q4 INH Last administered on 07/17/18 14:29; Admin Dose 2 PUFF; Start 07/06/18 at 04:30 Ondansetron HCl (Zofran Odt) 4 mg Q6H PRN ODT NAUSEA AND/OR VOMITING; Start at 04:00 Pantoprazole (Protonix Tab) 40 mg BID@0600,1800 PO Last administered on 07/17/18 06:23; Admin Dose 40 MG; Start 07/06/18 at 06:00 Doxycycline Hyclate 100 mg/ Sodium Chloride 250 ml @ 250 mls/hr Q12 IVPB Last administered on 07/17/18 09:07; Admin Dose 250 MLS/HR; Start 07/08/18 at 21:00 Lactulose (Enulose) 10 gm BID PO Last administered on 07/17/18 09:07; Admin Dose 10 GM; Start 07/09/18 at 11:00 Rifaximin (Xifaxan) 200 mg TID PO Last administered on 07/17/18 14:25; Admin Dose 200 MG; Start 07/09/18 at 21:00 Ertapenem 1 gm/ Sodium Chloride 100 ml @ 200 mls/hr Q24H IVPB Last administered on 07/17/18 14:32; Admin Dose 200 MLS/HR; Start 07/14/18 at 14:00 Acetaminophen/ Hydrocodone Bitart ([place] (5/325)) 1 tab Q6H PRN PO MODERATE PAIN LEVEL 4-6 Last administered on 07/17/18 09:06; Admin Dose 1 TAB; Start 07/14/18 at 17:30 Sodium Hypochlorite (Dakin'S (Dilute )) 1 applic DAILY IRR Last administered on 07/17/18 09:13; Admin Dose 1 APPLIC; Start 07/15/18 at 23:45 Simethicone (Mylicon) 80 mg Q6H PRN PO DISTENSION/GAS/BLOATING Last administered on 07/16/18at 15:52; Admin Dose 80 MG; Start 07/16/18 at 15:30 MARIA DEL CARMEN BENITES MD Jul 17, 2018 14:34
--- NOTE | 2018-07-17 19:18 | CONS ---
Assessment/Plan Assessment/Plan Hospital Course (Demo Recall) Patient is alert and feels better looks comfortable no fevers overnight no labs Microbiology: Blood culture grew Klebsiella pneumonia on July 04 susceptible to Cipro and Levaquin, stool for C. difficile positive, urine culture negative MRSA swab negative Antimicrobials: Invanz, Doxycycline, oral vancomycin Physical examination: Chronically ill-appearing middle-aged woman who is in no d istress. Head atraumatic normocephalic sclera nonicteric vehicle mucosa dry neck is supple chest rise symmetrical breath sounds diminished at bases. Heart: S1-S2. Abdomen soft bowel sounds present extremities with bilateral edema, left lower extremity dressing intact Assessment: 1. Sepsis with Klebsiella pneumonia bacteremia likely secondary to SBP vs #2 2. Left lower extremity abscess/ cellulitis==> neg OM 3. C. difficile colitis 4. Alcoholic liver cirrhosis 5. Recurrent ascites 6. Anemia and thrombocytopenia Plan: Stable, continue abx, wound care per podiatry recommendations==> pending debridement Consultation Date/Type/Reason Admit Date/Time Jul 04, 2018 at 14:22 Initial Consult Date 07/07/18 Type of Consult id Requesting Provider: ANA SPICER Date/Time of Note DATE: 07/17/18 TIME: 19:17 Exam/Review of Systems Exam Vitals Vital Signs Date Temp Pulse Resp B/P (MAP) Pulse Ox O2 O2 Flow FiO2 Time Delivery Rate 07/17/18 92/56 (68) 15:00 07/17/18 98.7 86 17 97 Room Air 14:00 Intake and Output 07/16/18 07/16/18 07/17/18 1515:00 23:00 07:00 IntakeIntake Total 650 ml 350 ml 200 ml OutputOutput Total 0 ml 0 ml 0 ml BalanceBalance 650 ml 350 ml 200 ml Results Result Diagram: 07/16/18 0537 07/16/18 0537 Medications Medication Current Medications IV Flush (NS 3 ml) 3 ml PER PROTOCOL IV ; Start 07/04/18 at 18:30 Ondansetron HCl (Zofran Inj) 4 mg Q6H PRN IV NAUSEA/VOMITING Last administered on 07/16/18at 20:08; Admin Dose 4 MG; Start 07/04/18 at 18:30 Docusate Sodium (Colace) 100 mg Q12H PRN PO .CONSTIPATION; Start 07/04/18 at 18:30 Albuterol (Proventil 0.083% (Neb)) 2.5 mg Q4H RESP THERAPY PRN HHN SHORTNESS OF BREATH; Start 07/04/18 at 18:30 Metoclopramide HCl (Reglan) 5 mg Q6H PRN IV NAUSEA Last administered on 07/13/18 00:27; Admin Dose 5 MG; Start 07/05/18 at 10:00 Midodrine (Proamatine) 10 mg TID PO Last administered on 07/17/18 14:26; Admin Dose 10 MG; Start 07/06/18 at 09:00 Albuterol (Ventolin Hfa) 2 puff Q4 INH Last administered on 07/17/18 14:29; Admin Dose 2 PUFF; Start 07/06/18 at 04:30 Ondansetron HCl (Zofran Odt) 4 mg Q6H PRN ODT NAUSEA AND/OR VOMITING; Start 07/06/18 at 04:00 Pantoprazole (Protonix Tab) 40 mg BID@0600,1800 PO Last administered on 07/17/18 17:28; Admin Dose 40 MG; Start 07/06/18 at 06:00 Doxycycline Hyclate 100 mg/ Sodium Chloride 250 ml @ 250 mls/hr Q12 IVPB Last administered on 07/17/18 09:07; Admin Dose 250 MLS/HR; Start 07/08/18 at 21:00 Lactulose (Enulose) 10 gm BID PO Last administered on 07/17/18 09:07; Admin D ose 10 GM; Start 07/09/18 at 11:00 Rifaximin (Xifaxan) 200 mg TID PO Last administered on 07/17/18 14:25; Admin Dose 200 MG; Start 07/09/18 at 21:00 Ertapenem 1 gm/ Sodium Chloride 100 ml @ 200 mls/hr Q24H IVPB Last administered on 07/17/18 14:32; Admin Dose 200 MLS/HR; Start 07/14/18 at 14:00 Acetaminophen/ Hydrocodone Bitart ([place] (5/325)) 1 tab Q6H PRN PO MODERATE PAIN LEVEL 4-6 Last administered on 07/17/18 15:03; Admin Dose 1 TAB; Start 07/14/18 at 17:30 Sodium Hypochlorite (Dakin'S (Dilute )) 1 applic DAILY IRR Last administered on 07/17/18at 09:13; Admin Dose 1 APPLIC; Start 07/15/18 at 23:45 Simethicone (Mylicon) 80 mg Q6H PRN PO DISTENSION/GAS/BLOATING Last administered on 07/16/18at 15:52; Admin Dose 80 MG; Start 07/16/18 at 15:30 EMA MUELLER NP Jul 17, 2018 19:18
[2018-07-17] MEDS: ONDANSETRON 4 MG INJ IV PRN (21:00)
[2018-07-18] VITALS (23 sets, daily range): BP systolic 81–100; BP diastolic 40–56; PULSE 78–93; RESP 10–24
[2018-07-18] MEDS: ALBUTEROL HFA 8 GM INHALER INH SCH ×6 (00:53→23:58)
[2018-07-18] MEDS: HYDROCODONE/APAP (5/325) TAB PO PRN (01:34)
[2018-07-18] MEDS: PANTOPRAZOLE (EC) 40 MG TAB PO SCH ×2 (06:04→18:00)
[2018-07-18] MEDS: LACTULOSE 30ML CUP PO SCH (08:37)
[2018-07-18] MEDS: RIFAXIMIN 200 MG TAB PO SCH ×3 (08:37→23:58)
[2018-07-18] MEDS: SODIUM HYPOCHLORITE (1/40) 1 APPLIC BTL IRR SCH (08:37)
[2018-07-18] MEDS: MIDODRINE 5 MG TAB PO SCH ×3 (08:37→23:58)
[2018-07-18] MEDS: DOXYCYCLINE 100 MG in SOD CHLORIDE 0.9% 250 ML IVPB SCH ×2 (10:42→23:42)
[2018-07-18] MEDS: ONDANSETRON 4 MG INJ IV PRN (11:33)
--- NOTE | 2018-07-18 11:37 | CONS ---
Assessment/Plan Assessment/Plan Hospital Course (Demo Recall) No acute events overnight per report. Patient is sleeping, looks comfortable, no fevers overnight Microbiology: Blood culture grew Klebsiella pneumonia on July 04 susceptible to Cipro and Levaquin, stool for C. difficile positive, urine culture negative MRSA swab negative Antimicrobials: Invanz, Doxycycline, oral vancomycin Physical examination: Chronically ill-appearing middle-aged woman who is in no distress. Head atraumatic normocephalic sclera nonicteric vehicle mucosa dry neck is supple chest rise symmetrical breath sounds diminished at bases. Heart: S1-S2. Abdomen soft bowel sounds present extremities with bilateral edema, left lower extremity dressing intact Assessment: 1. Sepsis with Klebsiella pneumonia bacteremia likely secondary to SBP vs #2 2. Left lower extremity abscess/ cellulitis==> neg OM 3. C. difficile colitis 4. Alcoholic liver cirrhosis 5. Recurrent ascites 6. Anemia and thrombocytopenia Plan: Stable, continue abx, wound care per podiatry recommendations==> pending debridement Consultation Date/Type/Reason Admit Date/Time Jul 04, 2018 at 14:22 Initial Consult Date 07/07/18 Type of Consult id Requesting Provider: ANA SPICER Date/Time of Note DATE: 07/18/18 TIME: 11:37 Exam/Review of Systems Exam Vitals Vital Signs Date Temp Pulse Resp B/P (MAP) Pulse Ox O2 O2 Flow FiO2 Time Delivery Rate 07/18/18 98.7 93 17 90/50 (63) 91 Room Air 08:11 Intake and Output 07/17/18 07/17/18 07/18/18 1414:59 22:59 06:59 IntakeIntake Total 550 ml 600 ml 1330 ml OutputOutput Total 0 ml 0 ml BalanceBalance 550 ml 600 ml 1330 ml Results Result Diagram: 07/16/18 0537 07/16/18 0537 Results 24hrs Laboratory Tests Test 07/18/18 11:11 White Blood Count Pending Red Blood Count Pending Hemoglobin Pending Hematocrit Pending Mean Corpuscular Volume Pending Mean Corpuscular Hemoglobin Pending Mean Corpuscular Hemoglobin Concent Pending Red Cell Distribution Width Pending Platelet Count Pending Mean Platelet Volume Pending Medications Medication Current Medications IV Flush (NS 3 ml) 3 ml PER PROTOCOL IV ; Start 07/04/18 at 18:30 Ondansetron HCl (Zofran Inj) 4 mg Q6H PRN IV NAUSEA/VOMITING Last administered on 07/17/18 21:00; Admin Dose 4 MG; Start 07/04/18 at 18:30 Docusate Sodium (Colace) 100 mg Q12H PRN PO .CONSTIPATION; Start 07/04/18 at 18:30 Albuterol (Proventil 0.083% (Neb)) 2.5 mg Q4H RESP THERAPY PRN HHN SHORTNESS OF BREATH; Start 07/04/18 at 18:30 Metoclopramide HCl (Reglan) 5 mg Q6H PRN IV NAUSEA Last administered on 07/13/18 00:27; Admin Dose 5 MG; Start 07/05/18 at 10:00 Midodrine (Proamatine) 10 mg TID PO Last administered on 07/18/18 08:37; Admin Dose 10 MG; Start 07/06/18 at 09:00 Albuterol (Ventolin Hfa) 2 puff Q4 INH Last administered on 07/17/18 20:55; Admin Dose 2 PUFF; Start 07/06/18 at 04:30 Ondansetron HCl (Zofran Odt) 4 mg Q6H PRN ODT NAUSEA AND/OR VOMITING; Start 07/06/18 at 04:00 Pantoprazole (Protonix Tab) 40 mg BID@0600,1800 PO Last administered on 07/18/18 06:04; Admin Dose 40 MG; Start 07/06/18 at 06:00 Doxycycline Hyclate 100 mg/ Sodium Chloride 250 ml @ 250 mls/hr Q12 IVPB Last administered on 07/18/18 10:42; Admin Dose 250 MLS/HR; Start 07/08/18 at 21:00 Lactulose (Enulose) 10 gm BID PO Last administered on 07/17/18 20:50; Admin Dose 10 GM; Start 07/09/18 at 11:00 Rifaximin (Xifaxan) 200 mg TID PO Last administered on 07/18/18 08:37; Admin Dose 200 MG; Start 07/09/18 at 21:00 Ertapenem 1 gm/ Sodium Chloride 100 ml @ 200 mls/hr Q24H IVPB Last administered on 07/17/18 14:32; Admin Dose 200 MLS/HR; Start 07/14/18 at 14:00 Acetaminophen/ Hydrocodone Bitart ([place] (5/)) 1 tab Q6H PRN PO MODERATE FLOYD N LEVEL 4-6 Last administered on 07/18/18at 01:34; Admin Dose 1 TAB; Start 07/14/18 at 17:30 Sodium Hypochlorite (Dakin'S (Dilute )) 1 applic DAILY IRR Last administered on 07/18/18at 08:37; Admin Dose 1 APPLIC; Start 07/15/18 at 23:45 Simethicone (Mylicon) 80 mg Q6H PRN PO DISTENSION/GAS/BLOATING Last administered on 07/16/18at 15:52; Admin Dose 80 MG; Start 07/16/18 at 15:30 EMA MUELLER NP Jul 18, 2018 11:37
[2018-07-18] MEDS ORDERED: SOD CHLORIDE 0.9% 250 ML IV* ONE ×2 (12:06→14:27)
--- NOTE | 2018-07-18 12:23 | PN ---
Date/Time of Note Date/Time of Note DATE: 07/18/18 TIME: 12:03 Assessment/Plan VTE Prophylaxis Risk score (from Nsg)>0 risk: 4 Pharmacological prophylaxis: NA/contraindicated Pharm contraindication: surgical contra Lines/Catheters IV Catheter Type (from Nrsg): Mid Line Urinary Cath still in place: No Assessment/Plan Hospital Course 48 yo female with cirrhosis, sepsis with bacteremia, C Diff colitis and large foot wound Foot wound - Podiatry to perform debridement today. FFP and platelets prior to OR - MRI foot shows no evidence of OM SBP with klebsiella bacteremia: - Abx course per ID. Unclear duration recommended but seems ok to stop at this point Cirrhosis: - Repeat paracentesis - resume diuretics - rifaxamin/lactulose, decrease lactulose frequency to daily C Diff diarrhea: - s/p PO vanco course -Patient with persistent diarrhea but likely secondary to lactulose, decrease frequency to daily Hyponatremia: - Hypervolemic Limit free water. Loop diuretics may help PT/OT DC planning: DC to SNF when stable Result Diagram: 07/18/18 1111 07/18/18 1111 Results 24hrs Laboratory Tests Test 07/18/18 11:11 White Blood Count 8.0 Red Blood Count 1.84 L Hemoglobin 6.5 *L Hematocrit 20.3 L Mean Corpuscular Volume 110.3 H Mean Corpuscular Hemoglobin 35.3 H Mean Corpuscular Hemoglobin Concent 32.0 Red Cell Distribution Width 19.0 H Platelet Count 64 #L Mean Platelet Volume 8.9 # Immature Granulocytes % 1.000 H Neutrophils % 73.8 Lymphocytes % 13.2 L Monocytes % 10.5 Eosinophils % 1.0 Basophils % 0.5 Nucleated Red Blood Cells % 0.0 Immature Granulocytes # 0.080 H Neutrophils # 5.9 Lymphocytes # 1.1 Monocytes # 0.8 Eosinophils # 0.1 Basophils # 0.0 Nucleated Red Blood Cells # 0.0 Prothrombin Time 24.7 H Prothrombin Time Ratio 1.9 INR International Normalized Ratio 2.22 Sodium Level 132 L Potassium Level 3.9 Chloride Level 106 Carbon Dioxide Level 25 Anion Gap 1 L Blood Urea Nitrogen 17 Creatinine 0.50 Est Glomerular Filtrat Rate mL/min > 60 Glucose Level 92 Calcium Level 7.7 L Total Bilirubin 4.8 H Direct Bilirubin 1.00 H Indirect Bilirubin 3.8 H Aspartate Amino Transf (AST/SGOT) 65 H Alanine Aminotransferase (ALT/SGPT) 45 Alkaline Phosphatase 105 Total Protein 5.5 L Albumin 2.0 L Globulin 3.50 H Albumin/Globulin Ratio 0.57 Subjective 24 Hr Interval Summary Musculoskeletal: bone/joint pain Exam/Review of Systems Exam Vitals Vital Signs Date Temp Pulse Resp B/P (MAP) Pulse Ox O2 O2 Flow FiO2 Time Delivery Rate 07/18/18 98.7 93 17 90/50 (63) 91 Room Air 08:11 Intake and Output 07/17/18 07/17/18 07/18/18 1414:59 22:59 06:59 IntakeIntake Total 550 ml 600 ml 1330 ml OutputOutput Total 0 ml 0 ml BalanceBalance 550 ml 600 ml 1330 ml Constitutional: alert Respiratory: clear to auscultation Cardiovascular: regular rate and rhythm Gastrointestinal: soft, distended Musculoskeletal: No nl extremities to inspection Results Results 24hrs Laboratory Tests Test 07/18/18 11:11 White Blood Count 8.0 Red Blood Count 1.84 L Hemoglobin 6.5 *L Hematocrit 20.3 L Mean Corpuscular Volume 110.3 H Mean Corpuscular Hemoglobin 35.3 H Mean Corpuscular Hemoglobin Concent 32.0 Red Cell Distribution Width 19.0 H Platelet Count 64 #L Mean Platelet Volume 8.9 # Immature Granulocytes % 1.000 H Neutrophils % 73.8 Lymphocytes % 13.2 L Monocytes % 10.5 Eosinophils % 1.0 Basophils % 0.5 Nucleated Red Blood Cells % 0.0 Immature Granulocytes # 0.080 H Neutrophils # 5.9 Lymphocytes # 1.1 Monocytes # 0.8 Eosinophils # 0.1 Basophils # 0.0 Nucleated Red Blood Cells # 0.0 Prothrombin Time 24.7 H Prothrombin Time Ratio 1.9 INR International Normalized Ratio 2.22 Sodium Level 132 L Potassium Level 3.9 Chloride Level 106 Carbon Dioxide Level 25 Anion Gap 1 L Blood Urea Nitrogen 17 Creatinine 0.50 Est Glomerular Filtrat Rate mL/min > 60 Glucose Level 92 Calcium Level 7.7 L Total Bilirubin 4.8 H Direct Bilirubin 1.00 H Indirect Bilirubin 3.8 H Aspartate Amino Transf (AST/SGOT) 65 H Alanine Aminotransferase (ALT/SGPT) 45 Alkaline Phosphatase 105 Total Protein 5.5 L Albumin 2.0 L Globulin 3.50 H Albumin/Globulin Ratio 0.57 Medications Medication Current Medications IV Flush (NS 3 ml) 3 ml PER PROTOCOL IV ; Start 07/04/18 at 18:30 Ondansetron HCl (Zofran Inj) 4 mg Q6H PRN IV NAUSEA/VOMITING Last administered on 07/18/18 11:33; Admin Dose 4 MG; Start 07/04/18 at 18:30 Docusate Sodium (Colace) 100 mg Q12H PRN PO .CONSTIPATION; Start 07/04/18 at 18:30 Albuterol (Proventil 0.083% (Neb)) 2.5 mg Q4H RESP THERAPY PRN HHN SHORTNESS OF BREATH; Start 07/04/18 at 18:30 Metoclopramide HCl (Reglan) 5 mg Q6H PRN IV NAUSEA Last administered on 07/13/18 00:27; Admin Dose 5 MG; Start 07/05/18 at 10:00 Midodrine (Proamatine) 10 mg TID PO Last administered on 07/18/18 08:37; Admin Dose 10 MG; Start 07/06/18 at 09:00 Albuterol (Ventolin Hfa) 2 puff Q4 INH Last administered on 07/17/18 20:55; Admin Dose 2 PUFF; Start 07/06/18 at 04:30 Ondansetron HCl (Zofran Odt) 4 mg Q6H PRN ODT NAUSEA AND/OR VOMITING; Start 07/06/18 at 04:00 Pantoprazole (Protonix Tab) 40 mg BID@0600,1800 PO Last administered on 06:04; Admin Dose 40 MG; Start 07/06/18 at 06:00 Doxycycline Hyclate 100 mg/ Sodium Chloride 250 ml @ 250 mls/hr Q12 IVPB Last administered on 07/18/18 10:42; Admin Dose 250 MLS/HR; Start 07/08/18 at 21:00 Lactulose (Enulose) 10 gm BID PO Last administered on 07/17/18 20:50; Admin Dose 10 GM; Start 07/09/18 at 11:00 Rifaximin (Xifaxan) 200 mg TID PO Last administered on 07/18/18 08:37; Admin Dose 200 MG; Start 07/09/18 at 21:00 Ertapenem 1 gm/ Sodium Chloride 100 ml @ 200 mls/hr Q24H IVPB Last administered on 07/17/18 14:32; Admin Dose 200 MLS/HR; Start 07/14/18 at 14:00 Acetaminophen/ Hydrocodone Bitart ([place] (5/325)) 1 tab Q6H PRN PO MODERATE PAIN LEVEL 4-6 Last administered on 07/18/18 01:34; Admin Dose 1 TAB; Start 07/14/18 at 17:30 Sodium Hypochlorite (Dakin'S (Dilute )) 1 applic DAILY IRR Last administered on 07/18/18 08:37; Admin Dose 1 APPLIC; Start 07/15/18 at 23:45 Simethicone (Mylicon) 80 mg Q6H PRN PO DISTENSION/GAS/BLOATING Last administered on 07/16/18 15:52; Admin Dose 80 MG; Start 07/16/18 at 15:30 ANA SPICER Jul 18, 2018 12:14
[2018-07-18] MEDS: ERTAPENEM SODIUM 1 GM in SOD CHLORIDE 0.9% 100 ML IVPB SCH (16:13)
--- NOTE | 2018-07-18 18:45 | HPN ---
Date/Time of Note Date/Time of Note DATE: 07/18/18 TIME: 18:45 Interval H&P Admission Note Pt. seen H&P reviewed: No system changes JEANINE SAWYER DPM Jul 18, 2018 18:45
--- NOTE | 2018-07-18 18:51 | PREAC ---
Date/Time of Note Date/Time of Note DATE: 07/18/18 TIME: 18:50 Anesthesia Eval and Record Evaluation Time Pre-Procedure Interview DATE: 07/18/18 TIME: 18:50 Age 48 Sex female NPO: 8 hrs Preoperative diagnosis left foot infection Planned procedure I&D under local and block Past Medical History Past Medical History: Includes Hepatic: Cirrhosis Heme: Anemia, Coagulation disorder, Thrombocytopenia Surgery & Anesthesia Issues No known issue Meds Anticoagulation: No Beta Dipak within 24 hr: No Reason Beta Dipak not given: Pt. not on B-Dipak Active Scripts Hydrocodone/Acetaminophen ([place] 5-325 Tablet) 1 Each Tablet, 1 TAB PO Q6H PRN for PAIN, #7 TAB Prov:RADHA MORALES MD 06/28/18 Ondansetron (Ondansetron Odt) 4 Mg Tab.rapdis, 4 MG PO Q6H PRN for NAUSEA AND/OR VOMITING, #10 TAB Prov:ALEXANDRIA QUIROGA MD 06/14/18 Reported Medications Lactulose (Constulose) 10 Gm/15 Ml Solution, 10 GM PO NEEDED 06/28/18 Albuterol Sulfate* (Ventolin HFA*) 18 Gm Hfa.aer.ad, 2 PUFF INHALATION Q4H, #1 INHALER 06/28/18 Midodrine* (Midodrine*) 5 Mg Tablet, 5 MG PO TID, TAB 06/28/18 Spironolactone* (Aldactone*) 100 Mg Tablet, 100 MG PO BID, #60 TAB 05/15/18 Omeprazole* (Omeprazole*) 20 Mg Capsule.dr, 20 MG PO BID, #60 CAP 05/15/18 Potassium Chloride* (K-Dur*) 20 Meq Tab.prt.sr, 20 MEQ PO BID, TAB.SA 05/15/18 Current Medications IV Flush (NS 3 ml) 3 ml PER PROTOCOL IV ; Start 07/04/18 at 18:30 Ondansetron HCl (Zofran Inj) 4 mg Q6H PRN IV NAUSEA/VOMITING Last administered on 07/18/18at 11:33; Admin Dose 4 MG; Start 07/04/18 at 18:30 Docusate Sodium (Colace) 100 mg Q12H PRN PO .CONSTIPATION; Start 07/04/18 at 18:30 Albuterol (Proventil 0.083% (Neb)) 2.5 mg Q4H RESP THERAPY PRN HHN SHORTNESS OF BREATH; Start 07/04/18 at 18:30 Metoclopramide HCl (Reglan) 5 mg Q6H PRN IV NAUSEA Last administered on 07/13/18 00:27; Admin Dose 5 MG; Start 07/05/18 at 10:00 Midodrine (Proamatine) 10 mg TID PO Last administered on 07/18/18 12:40; Admin Dose 10 MG; Start 07/06/18 at 09:00 Albuterol (Ventolin Hfa) 2 puff Q4 INH Last administered on 07/17/18 20:55; Admin Dose 2 PUFF; Start 07/06/18 at 04:30 Ondansetron HCl (Zofran Odt) 4 mg Q6H PRN ODT NAUSEA AND/OR VOMITING; Start 07/06/18 at 04:00 Pantoprazole (Protonix Tab) 40 mg BID@0600,1800 PO Last administered on 07/18/18 18:00; Admin Dose 40 MG; Start 07/06/18 at 06:00 Doxycycline Hyclate 100 mg/ Sodium Chloride 250 ml @ 250 mls/hr Q12 IVPB Last administered on 07/18/18 10:42; Admin Dose 250 MLS/HR; Start 07/08/18 at 21:00 Rifaximin (Xifaxan) 200 mg TID PO Last administered on 07/18/18 12:40; Admin Dose 200 MG; Start 07/09/18 at 21:00 Ertapenem 1 gm/ Sodium Chloride 100 ml @ 200 mls/hr Q24H IVPB Last administered on 07/18/18 16:13; Admin Dose 200 MLS/HR; Start 07/14/18 at 14:00 Acetaminophen/ Hydrocodone Bitart ([place] (5/325)) 1 tab Q6H PRN PO MODERATE PAIN LEVEL 4-6 Last administered on 07/18/18 01:34; Admin Dose 1 TAB; Start 07/14/18 at 17:30 Sodium Hypochlorite (Dakin'S (Dilute )) 1 applic DAILY IRR Last administered on 07/18/18 08:37; Admin Dose 1 APPLIC; Start 07/15/18 at 23:45 Simethicone (Mylicon) 80 mg Q6H PRN PO DISTENSION/GAS/BLOATING Last admin istered on 07/16/18at 15:52; Admin Dose 80 MG; Start 07/16/18 at 15:30 Lactulose (Enulose) 10 gm DAILY PO ; Start 07/19/18 at 09:00 Meds reviewed: Yes Allergies Coded Allergies: No Known Allergy (Unverified , 07/04/18) Allergies Reviewed: Yes Labs/Studies Labs Reviewed: Reviewed by anesthesiologist Result Diagram: 07/18/18 1111 07/18/18 1111 Laboratory Tests 07/18/18 11:11 test: Negative Pre-procedure Exam Last vitals Vital Signs Date Temp Pulse Resp B/P (MAP) Pulse Ox O2 O2 Flow FiO2 Time Delivery Rate 07/18/18 98.6 87 18 87/49 (62) 95 Room Air 14:50 Airway: Adequate mouth opening, Adequate thyromental dist Mallampati: Mallampati IV Teeth: Normal Lung: Normal Heart: Normal ASA Physical Status ASA physical status: 4 Emergency: None Pre-operative Attestations Prior to commencing anesthesia and surgery, the patient was re-evaluated, there was verification of: *The patient's identity *The results of appropriate recent lab work and preoperative vital signs *The above evaluation not changing prior to induction *Anesthetic plan, risk benefits, alternative and complications discussed with patient/family; questions answered; patient/family understands, accepts and wishes to proceed. LASHA CONWAY DO Jul 18, 2018 18:51
[2018-07-18] MEDS ORDERED: POLYMYXIN/BACITRACIN 1L IRRIG IRR ONE (19:20)
[2018-07-18] MEDS ORDERED: FENTAnyl 50 MCG/ML VIAL ONE (19:57)
[2018-07-18] MEDS ORDERED: MIDAZOLAM 1 MG/ML 2 ML INJ ONE ×2 (19:57→20:20)
[2018-07-18] MEDS ORDERED: ROPIVACAINE 0.5 % 30 ML VIAL ONE (19:58)
[2018-07-18] MEDS ORDERED: EPHEDrine 25 MG/5 ML SYG ONE (20:18)
[2018-07-18] MEDS ORDERED: BUPIVACAINE 0.5% (SDV) 30 ML INJ ONE (20:25)
[2018-07-18] MEDS ORDERED: LIDOCAINE 1% (MPF) 30 ML INJ ONE (20:26)
[2018-07-18] MEDS ORDERED: HYDROmorphONE 2 MG/ML SYG ONE (20:31)
[2018-07-18] MEDS ORDERED: PHENYLephrine (100 MCG/ML) 5ML SYG ONE (20:34)
[2018-07-18] MEDS ORDERED: FAMOTIDINE 20 MG INJ ONE (20:44)
[2018-07-18] MEDS ORDERED: DEXAMETHASONE 4 MG/ML 5 ML INJ ONE (20:44)
[2018-07-18] MEDS ORDERED: ONDANSETRON 4 MG INJ ONE (20:44)
[2018-07-18] MEDS ORDERED: GELATIN SIZE 100 SPONGE ONE (20:56)
[2018-07-18] MEDS ORDERED: THROMBIN (BOVINE) 5,000 UNIT VIAL TP ONE (20:56)
--- NOTE | 2018-07-18 21:00 | CONS ---
Assessment/Plan Assessment/Plan Problems: (1) Hyponatremia Comment: Dilutional, pt responding to fluid restriction (2) Cellulitis Status: Acute Comment: may be reason for sepsis Pt being followed by ID Pt awaiting Sx Qualifiers: Site of cellulitis: extremity Site of cellulitis of extremity: lower extremity Laterality: left Qualified Codes: L03.116 - Cellulitis of left lower limb (3) Ascites Status: Acute Comment: secondary to cirrhosis of liver (alcohol( May add Aldecetone (4) Anemia Comment: Prob multi-factorial Iron studies are nl Pt to get B Tx further plans per PMD Assessment/Plan (Daily) Overall pt doing quite well She's to get blood tx Consultation Date/Type/Reason Admit Date/Time Jul 04, 2018 at 14:22 Initial Consult Date 07/07/18 Type of Consult nephrology Reason for Consultation Hyponatremia Requesting Provider: ANA SPICER Date/Time of Note DATE: 07/18/18 TIME: 20:59 24 HR Interval Summary Free Text/Dictation Chart reviewed & pt examined Pt is lying in bed comfortably, awake & alert chart reviewed & pt examined Constitutional: improved Exam/Review of Systems Exam Vitals Vital Signs Date Temp Pulse Resp B/P (MAP) Pulse Ox O2 O2 Flow FiO2 Time Delivery Rate 07/18/18 98.6 87 18 87/49 (62) 95 Room Air 14:50 Intake and Output 07/17/18 07/17/18 07/18/18 1414:59 22:59 06:59 IntakeIntake Total 550 ml 600 ml 1330 ml OutputOutput Total 0 ml 0 ml BalanceBalance 550 ml 600 ml 1330 ml Exam cachectic looking Constitutional: alert, oriented Head: normocephalic Eyes: icteric Neck: supple Respiratory: clear to auscultation Cardiovascular: regular rate and rhythm Gastrointestinal: soft, ascites, distended Extremities: other (left foot dressing in place) 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: COPY DIRECTOR II-XII intact Skin: other (pale) Additional Comments SNa contiues to improve, renal; fn is normal Pt not able to ambulate Results Result Diagram: 07/18/18 1918 07/18/18 1111 Results 24hrs Laboratory Tests Test 07/18/18 11:11 07/18/18 19:18 White Blood Count 8.0 6.9 Red Blood Count 1.84 L 2.67 #L Hemoglobin 6.5 *L 9.1 #L Hematocrit 20.3 L 28.1 #L Mean Corpuscular Volume 110.3 H 105.2 H Mean Corpuscular Hemoglobin 35.3 H 34.1 H Mean Corpuscular Hemoglobin Concent 32.0 32.4 Red Cell Distribution Width 19.0 H 20.4 H Platelet Count 64 #L 66 L Mean Platelet Volume 8.9 # 8.8 Immature Granulocytes % 1.000 H 1.200 H Neutrophils % 73.8 72.6 Segmented Neutrophils % (Manual) 84 H Band Neutrophils % (Manual) 3 Lymphocytes % 13.2 L 15.2 Lymphocytes % (Manual) 4 L Monocytes % 10.5 9.7 Monocytes % (Manual) 5 Eosinophils % 1.0 0.6 Eosinophils % (Manual) 2 Basophils % 0.5 0.7 Promyelocytes % (Manual) 2 H Nucleated Red Blood Cells % 0.0 0.0 Immature Granulocytes # 0.080 H 0.080 H Neutrophils # 5.9 5.0 Neutrophils # (Manual) 6.7 Band Neutrophils # 0.2 Lymphocytes (Manual) 0.3 L Lymphocytes # 1.1 1.1 Monocytes # 0.8 0.7 Monocytes # (Manual) 0.4 Eosinophils # 0.1 0.0 Basophils # 0.0 0.1 Promyelocytes # 0.1 H Nucleated Red Blood Cells # 0.0 0.0 Platelet Estimate DECREASED Polychromasia 3+ Poikilocytosis 1+ Anisocytosis 1+ Microcytosis 1+ Prothrombin Time 24.7 H 23.8 H Prothrombin Time Ratio 1.9 1.9 INR International Normalized Ratio 2.22 2.12 Path Consult Signing Pathologist STEPHEN BOATENG MD Sodium Level 132 L Potassium Level 3.9 Chloride Level 106 Carbon Dioxide Level 25 Anion Gap 1 L Blood Urea Nitrogen 17 Creatinine 0.50 Est Glomerular Filtrat Rate mL/min > 60 Glucose Level 92 Calcium Level 7.7 L Total Bilirubin 4.8 H Direct Bilirubin 1.00 H Indirect Bilirubin 3.8 H Aspartate Amino Transf (AST/SGOT) 65 H Alanine Aminotransferase (ALT/SGPT) 45 Alkaline Phosphatase 105 Total Protein 5.5 L Albumin 2.0 L Globulin 3.50 H Albumin/Globulin Ratio 0.57 Medications Medication Current Medications IV Flush (NS 3 ml) 3 ml PER PROTOCOL IV ; Start 07/04/18 at 18:30 Ondansetron HCl (Zofran Inj) 4 mg Q6H PRN IV NAUSEA/VOMITING Last administered on 07/18/18 11:33; Admin Dose 4 MG; Start 07/04/18 at 18:30 Docusate Sodium (Colace) 100 mg Q12H PRN PO .CONSTIPATION; Start 07/04/18 at 18:30 Albuterol (Proventil 0.083% (Neb)) 2.5 mg Q4H RESP THERAPY PRN HHN SHORTNESS OF BREATH; Start 07/04/18 at 18:30 Metoclopramide HCl (Reglan) 5 mg Q6H PRN IV NAUSEA Last administered on 07/13/18 00:27; Admin Dose 5 MG; Start 07/05/18 at 10:00 Midodrine (Proamatine) 10 mg TID PO Last administered on 07/18/18 12:40; Admin Dose 10 MG; Start 07/06/18 at 09:00 Albuterol (Ventolin Hfa) 2 puff Q4 INH Last administered on 07/17/18 20:55; Admin Dose 2 PUFF; Start 07/06/18 at 04:30 Ondansetron HCl (Zofran Odt) 4 mg Q6H PRN ODT NAUSEA AND/OR VOMITING; Start 07/06/18 at 04:00 Pantoprazole (Protonix Tab) 40 mg BID@0600,1800 PO Last administered on 07/18/18 18:00; Admin Dose 40 MG; Start 07/06/18 at 06:00 Doxycycline Hyclate 100 mg/ Sodium Chloride 250 ml @ 250 mls/hr Q12 IVPB Last administered on 07/18/18 10:42; Admin Dose 250 MLS/HR; Start 07/08/18 at 21:00 Rifaximin (Xifaxan) 200 mg TID PO Last administered on 07/18/18 12:40; Admin Dose 200 MG; Start 07/09/18 at 21:00 Ertapenem 1 gm/ Sodium Chloride 100 ml @ 200 mls/hr Q24H IVPB Last administ ered on 07/18/18 16:13; Admin Dose 200 MLS/HR; Start 07/14/18 at 14:00 Acetaminophen/ Hydrocodone Bitart ([place] (5/325)) 1 tab Q6H PRN PO MODERATE PAIN LEVEL 4-6 Last administered on 07/18/18at 01:34; Admin Dose 1 TAB; Start 07/14/18 at 17:30 Sodium Hypochlorite (Dakin'S (Dilute )) 1 applic DAILY IRR Last administered on 07/18/18at 08:37; Admin Dose 1 APPLIC; Start 07/15/18 at 23:45 Simethicone (Mylicon) 80 mg Q6H PRN PO DISTENSION/GAS/BLOATING Last administered on 07/16/18at 15:52; Admin Dose 80 MG; Start 07/16/18 at 15:30 Lactulose (Enulose) 10 gm DAILY PO ; Start 07/19/18 at 09:00 PAMELA ORTIZ MD Jul 18, 2018 21:00
[2018-07-18] MEDS ORDERED: LIDOCAINE 2% (SDV) 5 ML INJ ONE (21:17)
[2018-07-18] MEDS ORDERED: ETOMIDATE 20 MG INJ ONE (21:18)
--- NOTE | 2018-07-18 21:21 | SIPON ---
Date/Time of Note Date/Time of Note DATE: 07/18/18 TIME: 21:21 Operative Report Preoperative Diagnosis Left foot infected ulceration Left foot abscess with tissue necrosis, left foot Cellulitis, left lower extremity Postoperative Diagnosis Left foot infected ulceration Left foot abscess with tissue necrosis, left foot Cellulitis, left lower extremity Operation/Procedure Performed Left foot excisional debridement Left foot incision and drainage Application of wound VAC left foot Surgeon Jack Sawyer DPM assistant signal maintainer none Anesthesia: general Estimated blood loss: 50 - 100 ml's Transfusion Required none Specimen Left foot wound culture Left foot wound biopsy Grafts/Implants none Complications none JACK SAWYER DPM Jul 18, 2018 21:21
--- NOTE | 2018-07-18 21:21 | OPR ---
Date/Time of Note Date/Time of Note DATE: 07/18/18 TIME: 21:21 Operative Report Preoperative Diagnosis Left foot infected ulceration Left foot abscess with tissue necrosis, left foot Cellulitis, left lower extremity Postoperative Diagnosis Left foot infected ulceration Left foot abscess with tissue necrosis, left foot Cellulitis, left lower extremity Operation/Procedure Performed Left foot excisional debridement Left foot incision and drainage Application of wound VAC left foot Surgeon Jack Sawyer DPM Television Repairer none Anesthesia Type: general Estimated Blood Loss: 50 - 100 ml's Transfusion none Specimen Left foot wound culture Left foot wound biopsy Grafts/Implants none Complications none Indications 48 y/o F patient with an infected left foot ulceration with abscess formation. Patient states the ulcer started two weeks ago and she is unsure of the etiology. Patient reports she may have been walking barefoot outside in her father's backyard. Patient noticed increased pain, swelling, and redness to the foot. She also has concurrent ascites and liver cirrhosis. Patient is amenable to surgical intervention of her left foot infected ulcer site. All of the patient's questions and concerns were addressed. No promises or guarantees were given. Procedure Description Patient was brought into the OR and kept in the OR bed in the supine position. A pre operative popliteal block was provided by anesthesia team. The left lower extremity was scrubbed, prepped, and draped in the usual aseptic manner. A well padded ankle pneumatic tourniquet was applied to the left lower extremity but was not inflated during the case. Local ankle block was also performed using a 1:1 mixture of lidocaine 1% plain and marcaine 0.5% plain. Attention was directed to the left foot ulceration site. There was a fibronecrotic wound base, approximately 8-10mL of purulence was expressed from the ulceration site. Using a pickup and scissor the necrotic ulcer edges were removed to allow further evacuation of the purulence. There was fat necrosis also appreciated to the left foot ulceration site. Excisional debridement of skin/subQ/adipose tissue was also performed of the left foot ulceration site. Necrotic fat, skin, and non-viable tissue was removed from the wound bed. 50cm2 of area was debrided. Wound dimensions were 10 x 5 x 0.8cm. There was undermining appreciated circumferentially around the wound edges and there was undermining into the lateral ankle aspect approximately 1.5cm. Wound cultures were obtained along with wound tissue biopsy for pathology. Copious pulse lavage with antibiotic infuse saline was used at the left foot ulceration site. Use of surgicel and gelfoam with thrombin was used for hemostasis. A wound VAC with black foam was applied to the left foot ulceration site with successful seal. 125mmHg and low continuous therapy settings were used. Patient was transferred to the PACU with vital signs stable and neurovascular status intact. JACK SAWYER DPM Jul 18, 2018 21:21
[2018-07-18] MEDS ORDERED: PROCHLORPERAZINE 10 MG INJ IV PRN (21:30)
[2018-07-18] MEDS ORDERED: DIPHENHYDRAMINE 50 MG INJ IV PRN (21:30)
[2018-07-18] MEDS ORDERED: MEPERIDINE 25 MG INJ IV PRN (21:30)
[2018-07-18] MEDS ORDERED: EPHEDrine SULFATE 50 MG/5 ML SYG IV PRN (21:30)
[2018-07-18] MEDS ORDERED: FENTAnyl 50 MCG/ML VIAL IV PRN ×3 (21:30)
[2018-07-18] MEDS ORDERED: HYDROmorphONE 1 MG/5 ML IV SYRINGE IV PRN ×3 (21:30)
[2018-07-18] MEDS ORDERED: ONDANSETRON 4 MG INJ IV PRN (21:30)
--- NOTE | 2018-07-18 21:32 | PAC ---
Date/Time of Note Date/Time of Note DATE: 07/18/18 TIME: 21:31 Post-Anesthesia Notes Post-Anesthesia Note Last documented vital signs Vital Signs Date Temp Pulse Resp B/P (MAP) Pulse Ox O2 O2 Flow FiO2 Time Delivery Rate 07/18/18 98.6 87 18 87/49 (62) 95 Room Air 14:50 Activity: WNL Respiratory function: WNL Cardiovascular function: WNL Mental status: Baseline Pain reasonably controlled: Yes Hydration appropriate: Yes Nausea/Vomiting absent: Yes Comments BP: 90/50 HR: 88 RR: 15 T: 98 SaO2: 100% DORINDA RM MD Jul 18, 2018 21:32
[2018-07-18] MEDS ORDERED: ALBUMIN HUMAN 5% 250 ML IV ONE (22:00)
[2018-07-19 00:15] VITALS: BP 91/55; RESP 18
[2018-07-19 00:30] VITALS: BP 102/50; PULSE 75; RESP 18
[2018-07-19] MEDS: ALBUTEROL HFA 8 GM INHALER INH SCH ×6 (01:00→21:03)
[2018-07-19 01:51] VITALS: BP 97/56; PULSE 74; RESP 15
[2018-07-19 02:10] VITALS: BP 96/55; PULSE 76; RESP 18
[2018-07-19] MEDS: PANTOPRAZOLE (EC) 40 MG TAB PO SCH ×2 (05:50→18:15)
[2018-07-19 08:00] VITALS: BP 95/54; PULSE 56; RESP 18
[2018-07-19] MEDS: RIFAXIMIN 200 MG TAB PO SCH ×3 (09:00→21:04)
[2018-07-19] MEDS: HYDROCODONE/APAP (5/325) TAB PO PRN (09:00)
[2018-07-19] MEDS: LACTULOSE 30ML CUP PO SCH (09:00)
[2018-07-19] MEDS: MIDODRINE 5 MG TAB PO SCH ×3 (09:01→21:04)
[2018-07-19] MEDS: SODIUM HYPOCHLORITE (1/40) 1 APPLIC BTL IRR SCH (09:01)
[2018-07-19] MEDS: DOXYCYCLINE 100 MG in SOD CHLORIDE 0.9% 250 ML IVPB SCH ×2 (10:41→21:04)
--- NOTE | 2018-07-19 10:59 | CONS ---
Assessment/Plan Assessment/Plan Hospital Course (Demo Recall) all noted. No acute events overnight per report. Patient looks comfortable, no fevers Microbiology: Blood culture grew Klebsiella pneumonia on July 04 susceptible to Cipro and Levaquin, stool for C. difficile positive, urine culture negative MRSA swab negative Antimicrobials: Invanz, Doxycycline, oral vancomycin Physical examination: Chronically ill-appearing middle-aged woman who is in no distress. Head atraumatic normocephalic sclera nonicteric vehicle mucosa dry neck is supple chest rise symmetrical breath sounds diminished at bases. Heart: S1-S2. Abdomen soft bowel sounds present extremities with bilateral edema, left lower extremity dressing intact Assessment: 1. Sepsis with Klebsiella pneumonia bacteremia likely secondary to SBP vs #2 2. Left lower extremity abscess/ cellulitis==> neg OM, s/p i/d 07/18/18 with wound vac 3. C. difficile colitis 4. Alcoholic liver cirrhosis 5. Recurrent ascites 6. Anemia and thrombocytopenia Plan: Remains stable, continue abx, wound care per podiatry recommendations==> pending cx's Consultation Date/Type/Reason Admit Date/Time Jul 04, 2018 at 14:22 Initial Consult Date 07/07/18 Type of Consult id Requesting Provider: ANA SPICER Date/Time of Note DATE: 07/19/18 TIME: 10:58 Exam/Review of Systems Exam Vitals Vital Signs Date Temp Pulse Resp B/P (MAP) Pulse Ox O2 O2 Flow FiO2 Time Delivery Rate 07/19/18 98.6 56 18 95/54 (68) 96 08:00 07/19/18 Nasal 2.0 01:51 Cannula Intake and Output 07/18/18 07/18/18 07/19/18 1515:00 23:00 07:00 IntakeIntake Total 270 ml 1400 ml 250 ml OutputOutput Total 50 ml BalanceBalance 270 ml 1350 ml 250 ml Results Result Diagram: 07/19/18 0534 07/19/18 0534 Results 24hrs Laboratory Tests Test 07/18/18 11:11 07/18/18 19:18 07/18/18 21:55 07/19/18 05:34 White Blood Count 8.0 6.9 6.6 6.1 Red Blood Count 1.84 L 2.67 #L 2.15 L 2.18 L Hemoglobin 6.5 *L 9.1 #L 7.4 L 7.7 L Hematocrit 20.3 L 28.1 #L 22.7 L 23.1 L Mean Corpuscular 110.3 H 105.2 H 105.6 H 106.0 H Volume Mean Corpuscular 35.3 H 34.1 H 34.4 H 35.3 H Hemoglobin Mean Corpuscular 32.0 32.4 32.6 33.3 Hemoglobin Concen t Red Cell 19.0 H 20.4 H 20.6 H 20.9 H Distribution Width Platelet Count 64 #L 66 L 56 L 52 L Mean Platelet 8.9 # 8.8 8.6 9.1 Volume Immature 1.000 H 1.200 H 1.400 H 1.100 H Granulocytes % Neutrophils % 73.8 72.6 76.3 86.7 H Segmented 84 H Neutrophils % (Manual) Band Neutrophils 3 % (Manual) Lymphocytes % 13.2 L 15.2 12.5 L 10.0 L Lymphocytes % 4 L (Manual) Monocytes % 10.5 9.7 8.5 1.8 Monocytes % 5 (Manual) Eosinophils % 1.0 0.6 0.8 0.2 Eosinophils % 2 (Manual) Basophils % 0.5 0.7 0.5 0.2 Promyelocytes % 2 H (Manual) Nucleated Red 0.0 0.0 0.0 0.0 Blood Cells % Immature 0.080 H 0.080 H 0.090 H 0.070 H Granulocytes # Neutrophils # 5.9 5.0 5.0 5.3 Neutrophils # 6.7 (Manual) Band Neutrophils 0.2 # Lymphocytes 0.3 L (Manual) Lymphocytes # 1.1 1.1 0.8 0.6 L Monocytes # 0.8 0.7 0.6 0.1 L Monocytes # 0.4 (Manual) Eosinophils # 0.1 0.0 0.1 0.0 Basophils # 0.0 0.1 0.0 0.0 Promyelocytes # 0.1 H Nucleated Red 0.0 0.0 0.0 0.0 Blood Cells # Platelet Estimate DECREASED Polychromasia 3+ Poikilocytosis 1+ Anisocytosis 1+ Microcytosis 1+ Prothrombin Time 24.7 H 23.8 H Prothrombin Time 1.9 1.9 Ratio INR International 2.22 2.12 Normalized Ratio Path Consult CHENDUEN BOATENG, Signing Pathologi MD linn Sodium Level 132 L 133 L Potassium Level 3.9 4.8 Chloride Level 106 103 Carbon Dioxide 25 22 Level Anion Gap 1 L 8 Blood Urea 17 21 H Nitrogen Creatinine 0.50 0.57 Est Glomerular > 60 > 60 Filtrat Rate mL/min Glucose Level 92 97 Calcium Level 7.7 L 8.4 Total Bilirubin 4.8 H Direct Bilirubin 1.00 H Indirect 3.8 H Bilirubin Aspartate Amino 65 H Transf (AST/SGOT) Alanine 45 Aminotransferase (ALT/SGPT) Alkaline 105 Phosphatase Total Protein 5.5 L Albumin 2.0 L Globulin 3.50 H Albumin/Globulin 0.57 Ratio Medications Medication Current Medications IV Flush (NS 3 ml) 3 ml PER PROTOCOL IV ; Start 07/04/18 at 18:30 Ondansetron HCl (Zofran Inj) 4 mg Q6H PRN IV NAUSEA/VOMITING Last administered on 07/18/18at 11:33; Admin Dose 4 MG; Start 07/04/18 at 18:30 Docusate Sodium (Colace) 100 mg Q12H PRN PO .CONSTIPATION; Start 07/04/18 at 18:30 Albuterol (Proventil 0.083% (Neb)) 2.5 mg Q4H RESP THERAPY PRN HHN SHORTNESS OF BREATH; Start 07/04/18 at 18:30 Metoclopramide HCl (Reglan) 5 mg Q6H PRN IV NAUSEA Last administered on 07/13/18at 00:27; Admin Dose 5 MG; Start 07/05/18 at 10:00 Midodrine (Proamatine) 10 mg TID PO Last administered on 07/19/18at 09:01; Admin Dose 10 MG; Start 07/06/18 at 09:00 Albuterol (Ventolin Hfa) 2 puff Q4 INH Last administered on 07/19/18at 05:51; Admin Dose 2 PUFF; Start 07/06/18 at 04:30 Ondansetron HCl (Zofran Odt) 4 mg Q6H PRN ODT NAUSEA AND/OR VOMITING; Start 07/06/18 at 04:00 Pantoprazole (Protonix Tab) 40 mg BID@0600,1800 PO Last administered on 07/19/18at 05:50; Admin Dose 40 MG; Start 07/06/18 at 06:00 Doxycycline Hyclate 100 mg/ Sodium Chloride 250 ml @ 250 mls/hr Q12 IVPB Last administered on 07/19/18 10:41; Admin Dose 250 MLS/HR; Start 07/08/18 at 21:00 Rifaximin (Xifaxan) 200 mg TID PO Last administered on 07/19/18 09:00; Admin Dose 200 MG; Start 07/09/18 at 21:00 Ertapenem 1 gm/ Sodium Chloride 100 ml @ 200 mls/hr Q24H IVPB Last administered on 07/18/18 16:13; Admin Dose 200 MLS/HR; Start 07/14/18 at 14:00 Acetaminophen/ Hydrocodone Bitart ([place] (5/325)) 1 tab Q6H PRN PO MODERATE PAIN LEVEL 4-6 Last administered on 07/19/18 09:00; Admin Dose 1 TAB; Start 07/14/18 at 17:30 Sodium Hypochlorite (Dakin'S (Dilute )) 1 applic DAILY IRR Last administered on 07/19/18 09:01; Admin Dose 1 APPLIC; Start 07/15/18 at 23:45 Simethicone (Mylicon) 80 mg Q6H PRN PO DISTENSION/GAS/BLOATING Last a dministered on 07/16/18 15:52; Admin Dose 80 MG; Start 07/16/18 at 15:30 Lactulose (Enulose) 10 gm DAILY PO Last administered on 07/19/18 09:00; Admin Dose 10 GM; Start 07/19/18 at 09:00 Morphine Sulfate (morphine) 2 mg Q4 PRN IV SEVERE PAIN LEVEL 7-10; Start 07/18/18 at 21:30 EMA MUELLER NP Jul 19, 2018 10:59
--- NOTE | 2018-07-19 14:47 | PN ---
Date/Time of Note Date/Time of Note DATE: 07/19/18 TIME: 14:46 Assessment/Plan VTE Prophylaxis Risk score (from Nsg)>0 risk: 4 Pharmacological prophylaxis: NA/contraindicated Pharm contraindication: liver dx Lines/Catheters IV Catheter Type (from Nrsg): Saline Lock Urinary Cath still in place: No Assessment/Plan Hospital Course 48 yo female with cirrhosis, sepsis with bacteremia, C Diff colitis and large foot wound Foot wound -Status post debridement with wound VAC placement - MRI foot shows no evidence of OM SBP with klebsiella bacteremia: - Abx course per ID Cirrhosis: - Repeat paracentesis - resume diuretics - rifaxamin/lactulose, decreased lactulose frequency to daily C Diff diarrhea: - s/p PO vanco course -Patient with persistent diarrhea but likely secondary to lactulose, decrease frequency to daily Hyponatremia: - Hypervolemic Limit free water. Loop diuretics may help PT/OT DC planning: DC to SNF when stable Result Diagram: 07/19/18 0534 07/19/18 0534 Results 24hrs Laboratory Tests Test 07/18/18 19:18 07/18/18 21:55 07/19/18 05:34 White Blood Count 6.9 6.6 6.1 Red Blood Count 2.67 #L 2.15 L 2.18 L Hemoglobin 9.1 #L 7.4 L 7.7 L Hematocrit 28.1 #L 22.7 L 23.1 L Mean Corpuscular Volume 105.2 H 105.6 H 106.0 H Mean Corpuscular Hemoglobin 34.1 H 34.4 H 35.3 H Mean Corpuscular Hemoglobin Concent 32.4 32.6 33.3 Red Cell Distribution Width 20.4 H 20.6 H 20.9 H Platelet Count 66 L 56 L 52 L Mean Platelet Volume 8.8 8.6 9.1 Immature Granulocytes % 1.200 H 1.400 H 1.100 H Neutrophils % 72.6 76.3 86.7 H Lymphocytes % 15.2 12.5 L 10.0 L Monocytes % 9.7 8.5 1.8 Eosinophils % 0.6 0.8 0.2 Basophils % 0.7 0.5 0.2 Nucleated Red Blood Cells % 0.0 0.0 0.0 Immature Granulocytes # 0.080 H 0.090 H 0.070 H Neutrophils # 5.0 5.0 5.3 Lymphocytes # 1.1 0.8 0.6 L Monocytes # 0.7 0.6 0.1 L Eosinophils # 0.0 0.1 0.0 Basophils # 0.1 0.0 0.0 Nucleated Red Blood Cells # 0.0 0.0 0.0 Prothrombin Time 23.8 H Prothrombin Time Ratio 1.9 INR International Normalized Ratio 2.12 Sodium Level 133 L Potassium Level 4.8 Chloride Level 103 Carbon Dioxide Level 22 Anion Gap 8 Blood Urea Nitrogen 21 H Creatinine 0.57 Est Glomerular Filtrat Rate mL/min > 60 Glucose Level 97 Calcium Level 8.4 Subjective 24 Hr Interval Summary Constitutional: no complaints Exam/Review of Systems Exam Vitals Vital Signs Date Temp Pulse Resp B/P (MAP) Pulse Ox O2 O2 Flow FiO2 Time Delivery Rate 07/19/18 98.6 56 18 95/54 (68) 96 08:00 07/19/18 Nasal 2.0 08:00 Cannula Intake and Output 07/18/18 07/18/18 07/19/18 1515:00 23:00 07:00 IntakeIntake Total 270 ml 1400 ml 250 ml OutputOutput Total 50 ml BalanceBalance 270 ml 1350 ml 250 ml Constitutional: alert, oriented Respiratory: clear to auscultation Cardiovascular: regular rate and rhythm Gastrointestinal: soft; No distended Musculoskeletal: No nl extremities to inspection Results Results 24hrs Laboratory Tests Test 07/18/18 19:18 07/18/18 21:55 07/19/18 05:34 White Blood Count 6.9 6.6 6.1 Red Blood Count 2.67 #L 2.15 L 2.18 L Hemoglobin 9.1 #L 7.4 L 7.7 L Hematocrit 28.1 #L 22.7 L 23.1 L Mean Corpuscular Volume 105.2 H 105.6 H 106.0 H Mean Corpuscular Hemoglobin 34.1 H 34.4 H 35.3 H Mean Corpuscular Hemoglobin Concent 32.4 32.6 33.3 Red Cell Distribution Width 20.4 H 20.6 H 20.9 H Platelet Count 66 L 56 L 52 L Mean Platelet Volume 8.8 8.6 9.1 Immature Granulocytes % 1.200 H 1.400 H 1.100 H Neutrophils % 72.6 76.3 86.7 H Lymphocytes % 15.2 12.5 L 10.0 L Monocytes % 9.7 8.5 1.8 Eosinophils % 0.6 0.8 0.2 Basophils % 0.7 0.5 0.2 Nucleated Red Blood Cells % 0.0 0.0 0.0 Immature Granulocytes # 0.080 H 0.090 H 0.070 H Neutrophils # 5.0 5.0 5.3 Lymphocytes # 1.1 0.8 0.6 L Monocytes # 0.7 0.6 0.1 L Eosinophils # 0.0 0.1 0.0 Basophils # 0.1 0.0 0.0 Nucleated Red Blood Cells # 0.0 0.0 0.0 Prothrombin Time 23.8 H Prothrombin Time Ratio 1.9 INR International Normalized Ratio 2.12 Sodium Level 133 L Potassium Level 4.8 Chloride Level 103 Carbon Dioxide Level 22 Anion Gap 8 Blood Urea Nitrogen 21 H Creatinine 0.57 Est Glomerular Filtrat Rate mL/min > 60 Glucose Level 97 Calcium Level 8.4 Medications Medication Current Medications IV Flush (NS 3 ml) 3 ml PER PROTOCOL IV ; Start 07/04/18 at 18:30 Ondansetron HCl (Zofran Inj) 4 mg Q6H PRN IV NAUSEA/VOMITING Last administered on 07/18/18at 11:33; Admin Dose 4 MG; Start 07/04/18 at 18:30 Docusate Sodium (Colace) 100 mg Q12H PRN PO .CONSTIPATION; Start 07/04/18 at 18:30 Albuterol (Proventil 0.083% (Neb)) 2.5 mg Q4H RESP THERAPY PRN HHN SHORTNESS OF BREATH; Start 07/04/18 at 18:30 Metoclopramide HCl (Reglan) 5 mg Q6H PRN IV NAUSEA Last administered on 07/13/18at 00:27; Admin Dose 5 MG; Start 07/05/18 at 10:00 Midodrine (Proamatine) 10 mg TID PO Last administered on 07/19/18at 12:24; Admin Dose 10 MG; Start 07/06/18 at 09:00 Albuterol (Ventolin Hfa) 2 puff Q4 INH Last administered on 07/19/18at 12:23; Admin Dose 2 PUFF; Start 07/06/18 at 04:30 Ondansetron HCl (Zofran Odt) 4 mg Q6H PRN ODT NAUSEA AND/OR VOMITING; Start 07/06/18 at 04:00 Pantoprazole (Protonix Tab) 40 mg BID@0600,1800 PO Last administered on 07/19/18 05:50; Admin Dose 40 MG; Start 07/06/18 at 06:00 Doxycycline Hyclate 100 mg/ Sodium Chloride 250 ml @ 250 mls/hr Q12 IVPB Last administered on 07/19/18 10:41; Admin Dose 250 MLS/HR; Start 07/08/18 at 21:00 Rifaximin (Xifaxan) 200 mg TID PO Last administered on 07/19/18 12:24; Admin Dose 200 MG; Start 07/09/18 at 21:00 Ertapenem 1 gm/ Sodium Chloride 100 ml @ 200 mls/hr Q24H IVPB Last administered on 07/18/18 16:13; Admin Dose 200 MLS/HR; Start 07/14/18 at 14:00 Acetaminophen/ Hydrocodone Bitart ([place] (5/325)) 1 tab Q6H PRN PO MODERATE PAIN LEVEL 4-6 Last administered on 07/19/18 09:00; Admin Dose 1 TAB; Start 07/14/18 at 17:30 Sodium Hypochlorite (Dakin'S (Dilute 40)) 1 applic DAILY IRR Last administered on 07/19/18 09:01; Admin Dose 1 APPLIC; Start 07/15/18 at 23:45 Simethicone (Mylicon) 80 mg Q6H PRN PO DISTENSION/GAS/BLOATING Last administered on 07/16/18 15:52; Admin Dose 80 MG; Start 07/16/18 at 15:30 Lactulose (Enulose) 10 gm DAILY PO Last administered on 07/19/18 09:00; Admin Dose 10 GM; Start 07/19/18 at 09:00 Morphine Sulfate (morphine) 2 mg Q4 PRN IV SEVERE PAIN LEVEL 7-10; Start 07/18/18 at 21:30 Spironolactone (Aldactone) 25 mg BID DIURETICS PO ; Start 07/19/18 at 13:00 ANA SPICER Jul 19, 2018 14:47
[2018-07-19] MEDS: ERTAPENEM SODIUM 1 GM in SOD CHLORIDE 0.9% 100 ML IVPB SCH (15:09)
[2018-07-19] MEDS: SPIRONOLACTONE 25 MG TAB PO SCH ×2 (15:09→18:15)
[2018-07-19] MEDS: morphine 2 MG INJ IV PRN ×2 (15:09→21:05)
--- NOTE | 2018-07-19 17:35 | PN ---
Date/Time of Note Date/Time of Note DATE: 07/19/18 TIME: 17:34 Assessment/Plan VTE Prophylaxis Risk score (from Nsg)>0 risk: 4 Pharmacological prophylaxis: other Lines/Catheters IV Catheter Type (from Nrsg): Saline Lock Urinary Cath still in place: No Assessment/Plan Assessment/Plan 1. Left foot abscess with tissue necrosis, left foot. s/p excisional debridement, I&D and application of wound VAC (DOS: 07/18/18) 2. Cellulitis, left lower extremity. 3. Sepsis with Klebsiella pneumoniae bacteremia. 4. Clostridium difficile colitis. 5. Alcoholic liver cirrhosis with recurrent ascites. 6. Anemia and thrombocytopenia. Plan Continue with wound VAC therapy and change dressings every 3 days. Irrigation with dakins solution at each dressing change. IntraOp foot cultures currently showing no organism - Pending. Awaiting intraOp pathology. Continue with IV abx as recommended. Offload heels with pillows. 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 She reports that she is on the list for a liver transplant. Recommend patient to have home VAC and continued VAC dressing changes upon discharge. Patient to follow up in [facility] in 1 week from discharge date. Result Diagram: 07/19/18 0534 07/19/18 0534 Results 24hrs Laboratory Tests Test 07/18/18 19:18 07/18/18 21:55 07/19/18 05:34 White Blood Count 6.9 6.6 6.1 Red Blood Count 2.67 #L 2.15 L 2.18 L Hemoglobin 9.1 #L 7.4 L 7.7 L Hematocrit 28.1 #L 22.7 L 23.1 L Mean Corpuscular Volume 105.2 H 105.6 H 106.0 H Mean Corpuscular Hemoglobin 34.1 H 34.4 H 35.3 H Mean Corpuscular Hemoglobin Concent 32.4 32.6 33.3 Red Cell Distribution Width 20.4 H 20.6 H 20.9 H Platelet Count 66 L 56 L 52 L Mean Platelet Volume 8.8 8.6 9.1 Immature Granulocytes % 1.200 H 1.400 H 1.100 H Neutrophils % 72.6 76.3 86.7 H Lymphocytes % 15.2 12.5 L 10.0 L Monocytes % 9.7 8.5 1.8 Eosinophils % 0.6 0.8 0.2 Basophils % 0.7 0.5 0.2 Nucleated Red Blood Cells % 0.0 0.0 0.0 Immature Granulocytes # 0.080 H 0.090 H 0.070 H Neutrophils # 5.0 5.0 5.3 Lymphocytes # 1.1 0.8 0.6 L Monocytes # 0.7 0.6 0.1 L Eosinophils # 0.0 0.1 0.0 Basophils # 0.1 0.0 0.0 Nucleated Red Blood Cells # 0.0 0.0 0.0 Prothrombin Time 23.8 H Prothrombin Time Ratio 1.9 INR International Normalized Ratio 2.12 Sodium Level 133 L Potassium Level 4.8 Chloride Level 103 Carbon Dioxide Level 22 Anion Gap 8 Blood Urea Nitrogen 21 H Creatinine 0.57 Est Glomerular Filtrat Rate mL/min > 60 Glucose Level 97 Calcium Level 8.4 Subjective 24 Hr Interval Summary Free Text/Dictation No acute events overnight. Exam/Review of Systems Exam Vitals Vital Signs Date Temp Pulse Resp B/P (MAP) Pulse Ox O2 O2 Flow FiO2 Time Delivery Rate 07/19/18 98.6 56 18 95/54 (68) 96 08:00 07/19/18 Nasal 2.0 08:00 Cannula Intake and Output 07/18/18 07/18/18 07/19/18 1515:00 23:00 07:00 IntakeIntake Total 270 ml 1400 ml 250 ml OutputOutput Total 50 ml BalanceBalance 270 ml 1350 ml 250 ml Exam Wound VAC dressings clean dry and intact. VAC operational at 125mmHg low continuous therapy with serosanguinous outptut to the canister. No strikethrough, no proximal streaking noted. Results Results 24hrs Laboratory Tests Test 07/18/18 19:18 07/18/18 21:55 07/19/18 05:34 White Blood Count 6.9 6.6 6.1 Red Blood Count 2.67 #L 2.15 L 2.18 L Hemoglobin 9.1 #L 7.4 L 7.7 L Hematocrit 28.1 #L 22.7 L 23.1 L Mean Corpuscular Volume 105.2 H 105.6 H 106.0 H Mean Corpuscular Hemoglobin 34.1 H 34.4 H 35.3 H Mean Corpuscular Hemoglobin Concent 32.4 32.6 33.3 Red Cell Distribution Width 20.4 H 20.6 H 20.9 H Platelet Count 66 L 56 L 52 L Mean Platelet Volume 8.8 8.6 9.1 Immature Granulocytes % 1.200 H 1.400 H 1.100 H Neutrophils % 72.6 76.3 86.7 H Lymphocytes % 15.2 12.5 L 10.0 L Monocytes % 9.7 8.5 1.8 Eosinophils % 0.6 0.8 0.2 Basophils % 0.7 0.5 0.2 Nucleated Red Blood Cells % 0.0 0.0 0.0 Immature Granulocytes # 0.080 H 0.090 H 0.070 H Neutrophils # 5.0 5.0 5.3 Lymphocytes # 1.1 0.8 0.6 L Monocytes # 0.7 0.6 0.1 L Eosinophils # 0.0 0.1 0.0 Basophils # 0.1 0.0 0.0 Nucleated Red Blood Cells # 0.0 0.0 0.0 Prothrombin Time 23.8 H Prothrombin Time Ratio 1.9 INR International Normalized Ratio 2.12 Sodium Level 133 L Potassium Level 4.8 Chloride Level 103 Carbon Dioxide Level 22 Anion Gap 8 Blood Urea Nitrogen 21 H Creatinine 0.57 Est Glomerular Filtrat Rate mL/min > 60 Glucose Level 97 Calcium Level 8.4 Medications Medication Current Medications IV Flush (NS 3 ml) 3 ml PER PROTOCOL IV ; Start 07/04/18 at 18:30 Ondansetron HCl (Zofran Inj) 4 mg Q6H PRN IV NAUSEA/VOMITING Last administered on 07/18/18at 11:33; Admin Dose 4 MG; Start 07/04/18 at 18:30 Docusate Sodium (Colace) 100 mg Q12H PRN PO .CONSTIPATION; Start 07/04/18 at 18:30 Albuterol (Proventil 0.083% (Neb)) 2.5 mg Q4H RESP THERAPY PRN HHN SHORTNESS OF BREATH; Start 07/04/18 at 18:30 Metoclopramide HCl (Reglan) 5 mg Q6H PRN IV NAUSEA Last administered on 9at 00:27; Admin Dose 5 MG; Start 07/05/18 at 10:00 Midodrine (Proamatine) 10 mg TID PO Last administered on 2/12/19at 12:24; Admin Dose 10 MG; Start 07/06/18 at 09:00 Albuterol (Ventolin Hfa) 2 puff Q4 INH Last administered on 07/19/18 12:23; Admin Dose 2 PUFF; Start 07/06/18 at 04:30 Ondansetron HCl (Zofran Odt) 4 mg Q6H PRN ODT NAUSEA AND/OR VOMITING; Start 07/06/18 at 04:00 Pantoprazole (Protonix Tab) 40 mg BID@0600,1800 PO Last administered on 07/19/18 05:50; Admin Dose 40 MG; Start 07/06/18 at 06:00 Doxycycline Hyclate 100 mg/ Sodium Chloride 250 ml @ 250 mls/hr Q12 IVPB Last administered on 07/19/18 10:41; Admin Dose 250 MLS/HR; Start 07/08/18 at 21:00 Rifaximin (Xifaxan) 200 mg TID PO Last administered on 07/19/18 12:24; Admin Dose 200 MG; Start 07/09/18 at 21:00 Ertapenem 1 gm/ Sodium Chloride 100 ml @ 200 mls/hr Q24H IVPB Last administered on 07/19/18 15:09; Admin Dose 200 MLS/HR; Start 07/14/18 at 14:00 Acetaminophen/ Hydrocodone Bitart ([place] (5/325)) 1 tab Q6H PRN PO MODERATE PAIN LEVEL 4-6 Last administered on 07/19/18 09:00; Admin Dose 1 TAB; Start 07/14/18 at 17:30 Sodium Hypochlorite (Dakin'S (Dilute 1/40)) 1 applic DAILY IRR Last administered on 07/19/18 09:01; Admin Dose 1 APPLIC; Start 07/15/18 at 23:45 Simethicone (Mylicon) 80 mg Q6H PRN PO DISTENSION/GAS/BLOATING Last administered on 07/16/18 15:52; Admin Dose 80 MG; Start 07/16/18 at 15:30 Lactulose (Enulose) 10 gm DAILY PO Last administered on 07/19/18 09:00; Admin Dose 10 GM; Start 07/19/18 at 09:00 Morphine Sulfate (morphine) 2 mg Q4 PRN IV SEVERE PAIN LEVEL 7-10 Last administered on 07/19/18at 15:09; Admin Dose 2 MG; Start 07/18/18 at 21:30 Spironolactone (Aldactone) 25 mg BID DIURETICS PO Last administered on 07/19/18at 15:09; Admin Dose 25 MG; Start 07/19/18 at 13:00 JEANINE SWAYER DPM Jul 19, 2018 17:35
--- NOTE | 2018-07-19 19:29 | CONS ---
Assessment/Plan Assessment/Plan Assessment/Plan 48 yo Female with 1) DEBRA in the setting of Sepsis and hemodynamic changes, HRS, More Likely Pre- renal azotemia and Intravascular Volume Depletion, Not ATN 2) Hyponatremia in Chronic Liver disease, S/p Paracentesis 3) Hyperkalemia Resolved 4) CDiff Diarrhea 5) Lower extremity Cellulitis 6) Abdominal Pain 7) Hyponatremia Improved Na Debra Resolved Cont current Rx and plan Free H20 Restricted diet Consultation Date/Type/Reason Admit Date/Time Jul 04, 2018 at 14:22 Type of Consult Nephrology Date/Time of Note DATE: 07/19/18 TIME: 19:28 Exam/Review of Systems Vital Signs Vitals Vital Signs Date Temp Pulse Resp B/P (MAP) Pulse Ox O2 O2 Flow FiO2 Time Delivery Rate 07/19/18 98.6 56 18 95/54 (68) 96 08:00 07/19/18 Nasal 2.0 08:00 Cannula Intake and Output 07/18/18 07/18/18 07/19/18 1414:59 22:59 06:59 IntakeIntake Total 270 ml 1400 ml 250 ml OutputOutput Total 50 ml BalanceBalance 270 ml 1350 ml 250 ml Exam ENMT: mucosa pink and moist Respiratory: No labored breathing Cardiovascular: edema Gastrointestinal: ascites Labs Result Diagram: 07/19/18 0534 07/19/18 0534 Results 24hrs Laboratory Tests Test 07/18/18 21:55 07/19/18 05:34 White Blood Count 6.6 6.1 Red Blood Count 2.15 L 2.18 L Hemoglobin 7.4 L 7.7 L Hematocrit 22.7 L 23.1 L Mean Corpuscular Volume 105.6 H 106.0 H Mean Corpuscular Hemoglobin 34.4 H 35.3 H Mean Corpuscular Hemoglobin Concent 32.6 33.3 Red Cell Distribution Width 20.6 H 20.9 H Platelet Count 56 L 52 L Mean Platelet Volume 8.6 9.1 Immature Granulocytes % 1.400 H 1.100 H Neutrophils % 76.3 86.7 H Lymphocytes % 12.5 L 10.0 L Monocytes % 8.5 1.8 Eosinophils % 0.8 0.2 Basophils % 0.5 0.2 Nucleated Red Blood Cells % 0.0 0.0 Immature Granulocytes # 0.090 H 0.070 H Neutrophils # 5.0 5.3 Lymphocytes # 0.8 0.6 L Monocytes # 0.6 0.1 L Eosinophils # 0.1 0.0 Basophils # 0.0 0.0 Nucleated Red Blood Cells # 0.0 0.0 Sodium Level 133 L Potassium Level 4.8 Chloride Level 103 Carbon Dioxide Level 22 Anion Gap 8 Blood Urea Nitrogen 21 H Creatinine 0.57 Est Glomerular Filtrat Rate mL/min > 60 Glucose Level 97 Calcium Level 8.4 Medications Medications Current Medications IV Flush (NS 3 ml) 3 ml PER PROTOCOL IV ; Start 07/04/18 at 18:30 Ondansetron HCl (Zofran Inj) 4 mg Q6H PRN IV NAUSEA/VOMITING Last administered on 07/18/18 11:33; Admin Dose 4 MG; Start 07/04/18 at 18:30 Docusate Sodium (Colace) 100 mg Q12H PRN PO .CONSTIPATION; Start 07/04/18 at 18:30 Albuterol (Proventil 0.083% (Neb)) 2.5 mg Q4H RESP THERAPY PRN HHN SHORTNESS OF BREATH; Start 07/04/18 at 18:30 Metoclopramide HCl (Reglan) 5 mg Q6H PRN IV NAUSEA Last administered on 07/13/18 00:27; Admin Dose 5 MG; Start 07/05/18 at 10:00 Midodrine (Proamatine) 10 mg TID PO Last administered on 07/19/18 12:24; Admin Dose 10 MG; Start 07/06/18 at 09:00 Albuterol (Ventolin Hfa) 2 puff Q4 INH Last administered on 07/19/18 12:23; Admin Dose 2 PUFF; Start 07/06/18 at 04:30 Ondansetron HCl (Zofran Odt) 4 mg Q6H PRN ODT NAUSEA AND/OR VOMITING; Start 07/06/18 at 04:00 Pantoprazole (Protonix Tab) 40 mg BID@0600,1800 PO Last administered on 07/19/18 18:15; Admin Dose 40 MG; Start 07/06/18 at 06:00 Doxycycline Hyclate 100 mg/ Sodium Chloride 250 ml @ 250 mls/hr Q12 IVPB Last administered on 07/19/18 10:41; Admin Dose 250 MLS/HR; Start 07/08/18 at 21:00 Rifaximin (Xifaxan) 200 mg TID PO Last administered on 07/19/18 12:24; Admin Dose 200 MG; Start 07/09/18 at 21:00 Ertapenem 1 gm/ Sodium Chloride 100 ml @ 200 mls/hr Q24H IVPB Last administered on 07/19/18 15:09; Admin Dose 200 MLS/HR; Start 07/14/18 at 14:00 Acetaminophen/ Hydrocodone Bitart ([place] (5/325)) 1 tab Q6H PRN PO MODERATE PAIN LEVEL 4-6 Last administered on 07/19/18 09:00; Admin Dose 1 TAB; Start 07/14/18 at 17:30 Sodium Hypochlorite (Dakin'S (Dilute )) 1 applic DAILY IRR Last administered on 07/19/18 09:01; Admin Dose 1 APPLIC; Start 07/15/18 at 23:45 Simethicone (Mylicon) 80 mg Q6H PRN PO DISTENSION/GAS/BLOATING Last administered on 07/16/18 15:52; Admin Dose 80 MG; Start 07/16/18 at 15:30 Lactulose (Enulose) 10 gm DAILY PO Last administered on 07/19/18 09:00; Admin Dose 10 GM; Start 07/19/18 at 09:00 Morphine Sulfate (morphine) 2 mg Q4 PRN IV SEVERE PAIN LEVEL 7-10 Last administered on 07/19/18 15:09; Admin Dose 2 MG; Start 07/18/18 at 21:30 Spironolactone (Aldactone) 25 mg BID DIURETICS PO Last administered on 07/19/18 18:15; Admin Dose 25 MG; Start 07/19/18 at 13:00 PARRIS THOMAS MD Jul 19, 2018 19:29
[2018-07-19 19:55] VITALS: BP 101/51; PULSE 77; RESP 18
[2018-07-20] MEDS: ALBUTEROL HFA 8 GM INHALER INH SCH ×6 (01:05→20:10)
[2018-07-20 02:30] VITALS: BP 93/50; PULSE 78; RESP 18
[2018-07-20] MEDS: SPIRONOLACTONE 25 MG TAB PO SCH ×2 (05:13→17:26)
[2018-07-20] MEDS: PANTOPRAZOLE (EC) 40 MG TAB PO SCH ×2 (05:13→17:30)
[2018-07-20 08:15] VITALS: BP 81/51; PULSE 92; RESP 18
[2018-07-20] MEDS: LACTULOSE 30ML CUP PO SCH (08:36)
[2018-07-20] MEDS: MIDODRINE 5 MG TAB PO SCH ×3 (08:36→20:10)
[2018-07-20] MEDS: SODIUM HYPOCHLORITE (1/40) 1 APPLIC BTL IRR SCH (08:36)
[2018-07-20] MEDS: RIFAXIMIN 200 MG TAB PO SCH ×3 (08:36→20:10)
[2018-07-20] MEDS: METOCLOPRAMIDE 10 MG INJ IV PRN ×2 (08:41→20:21)
[2018-07-20] MEDS: DOXYCYCLINE 100 MG in SOD CHLORIDE 0.9% 250 ML IVPB SCH ×2 (10:39→20:22)
--- NOTE | 2018-07-20 12:11 | CONS ---
Assessment/Plan Assessment/Plan Hospital Course (Demo Recall) No acute events overnight per report. Patient is sleeping, looks comfortable, no fevers Microbiology: Blood culture grew Klebsiella pneumonia on July 04 susceptible to Cipro and Levaquin, stool for C. difficile positive, urine culture negative MRSA swab negative, Left foot wound cultures growing gram-negative rods Antimicrobials: Invanz, Doxycycline Physical examination: Chronically ill-appearing middle-aged woman who is in no distress. Head atraumatic normocephalic sclera nonicteric vehicle mucosa dry neck is supple chest rise symmetrical breath sounds diminished at bases. Heart: S1-S2. Abdomen soft bowel sounds present extremities with bilateral edema, left lower extremity dressing intact Assessment: 1. Sepsis with Klebsiella pneumonia bacteremia likely secondary to SBP vs #2 2. Left lower extremity abscess/ cellulitis==> neg OM, s/p i/d 07/18/18 with wound vac 3. C. difficile colitis 4. Alcoholic liver cirrhosis 5. Recurrent ascites 6. Anemia and thrombocytopenia Plan: Remains stable, continue abx, wound care per podiatry recommendations, follow final cultures, repeat stool cultures Consultation Date/Type/Reason Admit Date/Time Jul 04, 2018 at 14:22 Initial Consult Date 07/07/18 Type of Consult id Requesting Provider: ANA SPICER Date/Time of Note DATE: 07/20/18 TIME: 12:10 Exam/Review of Systems Exam Vitals Vital Signs Date Temp Pulse Resp B/P (MAP) Pulse Ox O2 O2 Flow FiO2 Time Delivery Rate 07/20/18 98.2 92 18 81/51 (61) 97 Room Air 08:15 07/19/18 2.0 08:00 Intake and Output 07/19/18 07/19/18 07/20/18 1515:00 23:00 07:00 IntakeIntake Total 740 ml 1190 ml 200 ml OutputOutput Total 0 ml 200 ml BalanceBalance 740 ml 1190 ml 0 ml Results Result Diagram: 07/20/18 0458 07/20/18 0458 Results 24hrs Laboratory Tests Test 07/20/18 04:58 White Blood Count 6.7 Red Blood Count 2.30 L Hemoglobin 7.9 L Hematocrit 24.3 L Mean Corpuscular Volume 105.7 H Mean Corpuscular Hemoglobin 34.3 H Mean Corpuscular Hemoglobin Concent 32.5 Red Cell Distribution Width 20.6 H Platelet Count 61 L Mean Platelet Volume 9.7 Immature Granulocytes % 1.200 H Neutrophils % 73.0 Lymphocytes % 14.6 L Monocytes % 11.2 H Eosinophils % 0.0 Basophils % 0.0 Nucleated Red Blood Cells % 0.0 Immature Granulocytes # 0.080 H Neutrophils # 4.9 Lymphocytes # 1.0 Monocytes # 0.8 Eosinophils # 0.0 Basophils # 0.0 Nucleated Red Blood Cells # 0.0 Sodium Level 133 L Potassium Level 4.7 Chloride Level 103 Carbon Dioxide Level 22 Anion Gap 8 Blood Urea Nitrogen 26 H Creatinine 0.51 Est Glomerular Filtrat Rate mL/min > 60 Glucose Level 123 Calcium Level 8.5 Medications Medication Current Medications IV Flush (NS 3 ml) 3 ml PER PROTOCOL IV ; Start 07/04/18 at 18:30 Ondansetron HCl (Zofran Inj) 4 mg Q6H PRN IV NAUSEA/VOMITING Last administered on 07/18/18at 11:33; Admin Dose 4 MG; Start 07/04/18 at 18:30 Docusate Sodium (Colace) 100 mg Q12H PRN PO .CONSTIPATION; Start 07/04/18 at 18:30 Albuterol (Proventil 0.083% (Neb)) 2.5 mg Q4H RESP THERAPY PRN HHN SHORTNESS OF BREATH; Start 07/04/18 at 18:30 Metoclopramide HCl (Reglan) 5 mg Q6H PRN IV NAUSEA Last administered on 07/20/18at 08:41; Admin Dose 5 MG; Start 07/05/18 at 10:00 Midodrine (Proamatine) 10 mg TID PO Last administered on 07/20/18at 08:36; Admin Dose 10 MG; Start 07/06/18 at 09:00 Albuterol (Ventolin Hfa) 2 puff Q4 INH Last administered on 07/20/18 08:36; Admin Dose 2 PUFF; Start 07/06/18 at 04:30 Ondansetron HCl (Zofran Odt) 4 mg Q6H PRN ODT NAUSEA AND/OR VOMITING; Start 07/06/18 at 04:00 Pantoprazole (Protonix Tab) 40 mg BID@0600,1800 PO Last administered on 07/20/18at 05:13; Admin Dose 40 MG; Start 07/06/18 at 06:00 Doxycycline Hyclate 100 mg/ Sodium Chloride 250 ml @ 250 mls/hr Q12 IVPB Last administered on 07/20/18 10:39; Admin Dose 250 MLS/HR; Start 07/08/18 at 21:00 Rifaximin (Xifaxan) 200 mg TID PO Last administered on 07/20/18 08:36; Admin Dose 200 MG; Start 07/09/18 at 21:00 Ertapenem 1 gm/ Sodium Chloride 100 ml @ 200 mls/hr Q24H IVPB Last administered on 07/19/18 15:09; Admin Dose 200 MLS/HR; Start 07/14/18 at 14:00 Acetaminophen/ Hydrocodone Bitart ([place] (5/325)) 1 tab Q6H PRN PO MODERATE PAIN LEVEL 4-6 Last administered on 07/19/18 09:00; Admin Dose 1 TAB; Start 07/14/18 at 17:30 Sodium Hypochlorite (Dakin'S (Dilute )) 1 applic DAILY IRR Last admini stered on 07/19/18 09:01; Admin Dose 1 APPLIC; Start 07/15/18 at 23:45 Simethicone (Mylicon) 80 mg Q6H PRN PO DISTENSION/GAS/BLOATING Last administered on 07/16/18 15:52; Admin Dose 80 MG; Start 07/16/18 at 15:30 Lactulose (Enulose) 10 gm DAILY PO Last administered on 07/20/18 08:36; Admin Dose 10 GM; Start 07/19/18 at 09:00 Morphine Sulfate (morphine) 2 mg Q4 PRN IV SEVERE PAIN LEVEL 7-10 Last administered on 07/19/18 21:05; Admin Dose 2 MG; Start 07/18/18 at 21:30 Spironolactone (Aldactone) 25 mg BID DIURETICS PO Last administered on 07/20/18 05:13; Admin Dose 25 MG; Start 07/19/18 at 13:00 EMA MUELLER NP Jul 20, 2018 12:11
--- NOTE | 2018-07-20 13:07 | CONS ---
Assessment/Plan Assessment/Plan Assessment/Plan 48 yo Female with 1) DEBRA in the setting of Sepsis and hemodynamic changes, HRS, More Likely Pre- renal azotemia and Intravascular Volume Depletion, Not ATN 2) Hyponatremia in Chronic Liver disease, S/p Paracentesis 3) Hyperkalemia Resolved 4) CDiff Diarrhea 5) Lower extremity Cellulitis 6) Abdominal Pain 7) Hyponatremia Improved Na, stable at 133 Debra Resolved Cont current Rx and plan Free H20 Restricted diet No new recommendations Consultation Date/Type/Reason Admit Date/Time Jul 04, 2018 at 14:22 Type of Consult Nephrology Date/Time of Note DATE: 07/20/18 TIME: 13:06 Exam/Review of Systems Vital Signs Vitals Vital Signs Date Temp Pulse Resp B/P (MAP) Pulse Ox O2 O2 Flow FiO2 Time Delivery Rate 07/20/18 98.2 92 18 81/51 (61) 97 Room Air 08:15 07/19/18 2.0 08:00 Intake and Output 07/19/18 07/19/18 07/20/18 1515:00 23:00 07:00 IntakeIntake Total 740 ml 1190 ml 200 ml OutputOutput Total 0 ml 200 ml BalanceBalance 740 ml 1190 ml 0 ml Exam Constitutional: No distress ENMT: mucosa pink and moist Cardiovascular: edema Gastrointestinal: ascites 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: No lethargic Labs Result Diagram: 07/20/18 0458 07/20/18 0458 Results 24hrs Laboratory Tests Test 07/20/18 04:58 White Blood Count 6.7 Red Blood Count 2.30 L Hemoglobin 7.9 L Hematocrit 24.3 L Mean Corpuscular Volume 105.7 H Mean Corpuscular Hemoglobin 34.3 H Mean Corpuscular Hemoglobin Concent 32.5 Red Cell Distribution Width 20.6 H Platelet Count 61 L Mean Platelet Volume 9.7 Immature Granulocytes % 1.200 H Neutrophils % 73.0 Lymphocytes % 14.6 L Monocytes % 11.2 H Eosinophils % 0.0 Basophils % 0.0 Nucleated Red Blood Cells % 0.0 Immature Granulocytes # 0.080 H Neutrophils # 4.9 Lymphocytes # 1.0 Monocytes # 0.8 Eosinophils # 0.0 Basophils # 0.0 Nucleated Red Blood Cells # 0.0 Sodium Level 133 L Potassium Level 4.7 Chloride Level 103 Carbon Dioxide Level 22 Anion Gap 8 Blood Urea Nitrogen 26 H Creatinine 0.51 Est Glomerular Filtrat Rate mL/min > 60 Glucose Level 123 Calcium Level 8.5 Medications Medications Current Medications IV Flush (NS 3 ml) 3 ml PER PROTOCOL IV ; Start 07/04/18 at 18:30 Ondansetron HCl (Zofran Inj) 4 mg Q6H PRN IV NAUSEA/VOMITING Last administered on 07/18/18at 11:33; Admin Dose 4 MG; Start 07/04/18 at 18:30 Docusate Sodium (Colace) 100 mg Q12H PRN PO .CONSTIPATION; Start 07/04/18 at 18:30 Albuterol (Proventil 0.083% (Neb)) 2.5 mg Q4H RESP THERAPY PRN HHN SHORTNESS OF BREATH; Start 07/04/18 at 18:30 Metoclopramide HCl (Reglan) 5 mg Q6H PRN IV NAUSEA Last administered on 07/20/18 08:41; Admin Dose 5 MG; Start 07/05/18 at 10:00 Midodrine (Proamatine) 10 mg TID PO Last administered on 07/20/18at 12:42; Admin Dose 10 MG; Start 07/06/18 at 09:00 Albuterol (Ventolin Hfa) 2 puff Q4 INH Last administered on 07/20/18 12:42; Admin Dose 2 PUFF; Start 07/06/18 at 04:30 Ondansetron HCl (Zofran Odt) 4 mg Q6H PRN ODT NAUSEA AND/OR VOMITING; Start 07/06/18 at 04:00 Pantoprazole (Protonix Tab) 40 mg BID@0600,1800 PO Last administered on 9at 05:13; Admin Dose 40 MG; Start 07/06/18 at 06:00 Doxycycline Hyclate 100 mg/ Sodium Chloride 250 ml @ 250 mls/hr Q12 IVPB Last administered on 07/20/18at 10:39; Admin Dose 250 MLS/HR; Start 07/08/18 at 21:00 Rifaximin (Xifaxan) 200 mg TID PO Last administered on 07/20/18 12:42; Admin Dose 200 MG; Start 07/09/18 at 21:00 Ertapenem 1 gm/ Sodium Chloride 100 ml @ 200 mls/hr Q24H IVPB Last admi nistered on 07/19/18 15:09; Admin Dose 200 MLS/HR; Start 07/14/18 at 14:00 Acetaminophen/ Hydrocodone Bitart ([place] (5/325)) 1 tab Q6H PRN PO MODERATE PAIN LEVEL 4-6 Last administered on 07/19/18 09:00; Admin Dose 1 TAB; Start 07/14/18 at 17:30 Sodium Hypochlorite (Dakin'S (Dilute )) 1 applic DAILY IRR Last administered on 07/19/18 09:01; Admin Dose 1 APPLIC; Start 07/15/18 at 23:45 Simethicone (Mylicon) 80 mg Q6H PRN PO DISTENSION/GAS/BLOATING Last administered on 07/16/18 15:52; Admin Dose 80 MG; Start 07/16/18 at 15:30 Lactulose (Enulose) 10 gm DAILY PO Last administered on 07/20/18 08:36; Admin Dose 10 GM; Start 07/19/18 at 09:00 Morphine Sulfate (morphine) 2 mg Q4 PRN IV SEVERE PAIN LEVEL 7-10 Last administered on 07/19/18 21:05; Admin Dose 2 MG; Start 07/18/18 at 21:30 Spironolactone (Aldactone) 25 mg BID DIURETICS PO Last administered on 07/20/18 05:13; Admin Dose 25 MG; Start 07/19/18 at 13:00 Vancomycin HCl (Vancomycin Oral Syringe) 125 mg Q6 PO ; Start 07/20/18 at 18:00 PARRIS THOMAS MD Jul 20, 2018 13:06
[2018-07-20 14:53] VITALS: BP 95/56; PULSE 74; RESP 18
[2018-07-20] MEDS: ERTAPENEM SODIUM 1 GM in SOD CHLORIDE 0.9% 100 ML IVPB SCH (15:32)
--- NOTE | 2018-07-20 16:19 | PN ---
Date/Time of Note Date/Time of Note DATE: 07/20/18 TIME: 16:16 Assessment/Plan VTE Prophylaxis Risk score (from Nsg)>0 risk: 4 Pharmacological prophylaxis: NA/contraindicated Pharm contraindication: liver dx Lines/Catheters IV Catheter Type (from Nrsg): Saline Lock Urinary Cath still in place: No Assessment/Plan Hospital Course 48 yo female with cirrhosis, sepsis with bacteremia, C Diff colitis and large foot wound Foot wound -Status post debridement with wound VAC placement - MRI foot shows no evidence of OM SBP with klebsiella bacteremia: - Abx course per ID Cirrhosis: - Repeat paracentesis -Continue Aldactone, initiate Lasix if BP tolerates - rifaxamin/lactulose, decreased lactulose frequency to daily C Diff diarrhea: - s/p PO vanco course -Patient was having persistent diarrhea secondary to lactulose, have decreased frequency to daily and diarrhea is resolving Hyponatremia: - Hypervolemic Limit free water. Loop diuretics may help PT/OT DC planning: DC to SNF when stable Result Diagram: 07/20/18 0458 07/20/18 0458 Results 24hrs Laboratory Tests Test 07/20/18 04:58 White Blood Count 6.7 Red Blood Count 2.30 L Hemoglobin 7.9 L Hematocrit 24.3 L Mean Corpuscular Volume 105.7 H Mean Corpuscular Hemoglobin 34.3 H Mean Corpuscular Hemoglobin Concent 32.5 Red Cell Distribution Width 20.6 H Platelet Count 61 L Mean Platelet Volume 9.7 Immature Granulocytes % 1.200 H Neutrophils % 73.0 Lymphocytes % 14.6 L Monocytes % 11.2 H Eosinophils % 0.0 Basophils % 0.0 Nucleated Red Blood Cells % 0.0 Immature Granulocytes # 0.080 H Neutrophils # 4.9 Lymphocytes # 1.0 Monocytes # 0.8 Eosinophils # 0.0 Basophils # 0.0 Nucleated Red Blood Cells # 0.0 Sodium Level 133 L Potassium Level 4.7 Chloride Level 103 Carbon Dioxide Level 22 Anion Gap 8 Blood Urea Nitrogen 26 H Creatinine 0.51 Est Glomerular Filtrat Rate mL/min > 60 Glucose Level 123 Calcium Level 8.5 Subjective 24 Hr Interval Summary Constitutional: no complaints Exam/Review of Systems Exam Vitals Vital Signs Date Temp Pulse Resp B/P (MAP) Pulse Ox O2 O2 Flow FiO2 Time Delivery Rate 07/20/18 97.5 74 18 95/56 (69) 91 Room Air 14:53 07/19/18 2.0 08:00 Intake and Output 07/19/18 07/19/18 07/20/18 1515:00 23:00 07:00 IntakeIntake Total 740 ml 1190 ml 200 ml OutputOutput Total 0 ml 200 ml BalanceBalance 740 ml 1190 ml 0 ml Constitutional: alert, oriented Respiratory: clear to auscultation Cardiovascular: regular rate and rhythm Gastrointestinal: soft, distended Musculoskeletal: nl extremities to inspection Results Results 24hrs Laboratory Tests Test 07/20/18 04:58 White Blood Count 6.7 Red Blood Count 2.30 L Hemoglobin 7.9 L Hematocrit 24.3 L Mean Corpuscular Volume 105.7 H Mean Corpuscular Hemoglobin 34.3 H Mean Corpuscular Hemoglobin Concent 32.5 Red Cell Distribution Width 20.6 H Platelet Count 61 L Mean Platelet Volume 9.7 Immature Granulocytes % 1.200 H Neutrophils % 73.0 Lymphocytes % 14.6 L Monocytes % 11.2 H Eosinophils % 0.0 Basophils % 0.0 Nucleated Red Blood Cells % 0.0 Immature Granulocytes # 0.080 H Neutrophils # 4.9 Lymphocytes # 1.0 Monocytes # 0.8 Eosinophils # 0.0 Basophils # 0.0 Nucleated Red Blood Cells # 0.0 Sodium Level 133 L Potassium Level 4.7 Chloride Level 103 Carbon Dioxide Level 22 Anion Gap 8 Blood Urea Nitrogen 26 H Creatinine 0.51 Est Glomerular Filtrat Rate mL/min > 60 Glucose Level 123 Calcium Level 8.5 Medications Medication Current Medications IV Flush (NS 3 ml) 3 ml PER PROTOCOL IV ; Start 07/04/18 at 18:30 Ondansetron HCl (Zofran Inj) 4 mg Q6H PRN IV NAUSEA/VOMITING Last administered on 07/18/18at 11:33; Admin Dose 4 MG; Start 07/04/18 at 18:30 Docusate Sodium (Colace) 100 mg Q12H PRN PO .CONSTIPATION; Start 07/04/18 at 18:30 Albuterol (Proventil 0.083% (Neb)) 2.5 mg Q4H RESP THERAPY PRN HHN SHORTNESS OF BREATH; Start 07/04/18 at 18:30 Metoclopramide HCl (Reglan) 5 mg Q6H PRN IV NAUSEA Last administered on 07/20/18 08:41; Admin Dose 5 MG; Start 07/05/18 at 10:00 Midodrine (Proamatine) 10 mg TID PO Last administered on 07/20/18 12:42; Admin Dose 10 MG; Start 07/06/18 at 09:00 Albuterol (Ventolin Hfa) 2 puff Q4 INH Last administered on 07/20/18 12:42; Admin Dose 2 PUFF; Start 07/06/18 at 04:30 Ondansetron HCl (Zofran Odt) 4 mg Q6H PRN ODT NAUSEA AND/OR VOMITING; Start 07/06/18 at 04:00 Pantoprazole (Protonix Tab) 40 mg BID@0600,1800 PO Last administered on 07/20/18 05:13; Admin Dose 40 MG; Start 07/06/18 at 06:00 Doxycycline Hyclate 100 mg/ Sodium Chloride 250 ml @ 250 mls/hr Q12 IVPB Last administered on 07/20/18 10:39; Admin Dose 250 MLS/HR; Start 07/08/18 at 21:00 Rifaximin (Xifaxan) 200 mg TID PO Last administered on 07/20/18 12:42; Admin Dose 200 MG; Start 07/09/18 at 21:00 Ertapenem 1 gm/ Sodium Chloride 100 ml @ 200 mls/hr Q24H IVPB Last administered on 07/20/18 15:32; Admin Dose 200 MLS/HR; Start 07/14/18 at 14:00 Acetaminophen/ Hydrocodone Bitart ([place] (5/325)) 1 tab Q6H PRN PO MODERATE PAIN LEVEL 4-6 Last administered on 07/19/18 09:00; Admin Dose 1 TAB; Start 07/14/18 at 17:30 Sodium Hypochlorite (Dakin'S (Dilute 40)) 1 applic DAILY IRR Last administered on 07/19/18 09:01; Admin Dose 1 APPLIC; Start 07/15/18 at 23:45 Simethicone (Mylicon) 80 mg Q6H PRN PO DISTENSION/GAS/BLOATING Last administered on 07/16/18 15:52; Admin Dose 80 MG; Start 07/16/18 at 15:30 Lactulose (Enulose) 10 gm DAILY PO Last administered on 07/20/18at 08:36; Admin Dose 10 GM; Start 07/19/18 at 09:00 Morphine Sulfate (morphine) 2 mg Q4 PRN IV SEVERE PAIN LEVEL 7-10 Last administered on 07/19/18at 21:05; Admin Dose 2 MG; Start 07/18/18 at 21:30 Spironolactone (Aldactone) 25 mg BID DIURETICS PO Last administered on 07/20/18at 05:13; Admin Dose 25 MG; Start 07/19/18 at 13:00 Vancomycin HCl (Vancomycin Oral Syringe) 125 mg Q6 PO ; Start 07/20/18 at 18:00 ANA SPICER Jul 20, 2018 16:19
[2018-07-20] MEDS: HYDROCODONE/APAP (5/325) TAB PO PRN (17:26)
[2018-07-20] MEDS: ONDANSETRON (ODT) 4 MG TAB ODT PRN (17:26)
[2018-07-20] MEDS: VANCOMYCIN HCL 250 MG/5ML POSYG PO SCH (17:29)
[2018-07-20] MEDS: morphine 2 MG INJ IV PRN (20:09)
[2018-07-20] MEDS: DIPHENHYDRAMINE 50 MG INJ IV PRN (20:21)
[2018-07-20 20:58] VITALS: BP 102/60; PULSE 89; RESP 18
[2018-07-21] MEDS: ALBUTEROL HFA 8 GM INHALER INH SCH ×7 (00:03→21:00)
[2018-07-21] MEDS: VANCOMYCIN HCL 250 MG/5ML POSYG PO SCH ×5 (00:03→23:38)
[2018-07-21 02:00] VITALS: BP 105/59; PULSE 60; RESP 19
[2018-07-21] MEDS: PANTOPRAZOLE (EC) 40 MG TAB PO SCH ×2 (05:45→17:46)
[2018-07-21] MEDS: SPIRONOLACTONE 25 MG TAB PO SCH ×2 (05:45→17:44)
[2018-07-21 08:00] VITALS: BP 88/57; PULSE 74; RESP 18
[2018-07-21] MEDS: SODIUM HYPOCHLORITE (1/40) 1 APPLIC BTL IRR SCH (09:00)
[2018-07-21] MEDS: HYDROCODONE/APAP (5/325) TAB PO PRN (09:27)
[2018-07-21] MEDS: DOXYCYCLINE 100 MG in SOD CHLORIDE 0.9% 250 ML IVPB SCH (09:28)
[2018-07-21] MEDS: LACTULOSE 30ML CUP PO SCH (09:29)
[2018-07-21] MEDS: RIFAXIMIN 200 MG TAB PO SCH ×3 (09:29→21:20)
[2018-07-21] MEDS: MIDODRINE 5 MG TAB PO SCH ×3 (09:30→21:17)
--- NOTE | 2018-07-21 11:41 | CONS ---
Assessment/Plan Assessment/Plan Assessment/Plan 48 yo Female with 1) DEBRA in the setting of Sepsis and hemodynamic changes, HRS, More Likely Pre- renal azotemia and Intravascular Volume Depletion, Not ATN 2) Hyponatremia in Chronic Liver disease, S/p Paracentesis 3) Hyperkalemia Resolved 4) CDiff Diarrhea 5) Lower extremity Cellulitis 6) Abdominal Pain 7) Hyponatremia Improved Na, stable at 133 No new labs today Debra Resolved Cont current Rx and plan Free H20 Restricted diet No new recommendations Consultation Date/Type/Reason Admit Date/Time Jul 04, 2018 at 14:22 Type of Consult Nephrology Date/Time of Note DATE: 07/21/18 TIME: 11:41 Exam/Review of Systems Vital Signs Vitals Vital Signs Date Temp Pulse Resp B/P (MAP) Pulse Ox O2 O2 Flow FiO2 Time Delivery Rate 07/21/18 98.0 74 18 88/57 (67) 94 08:00 07/20/18 Room Air 14:53 07/19/18 2.0 08:00 Intake and Output 07/20/18 07/20/18 07/21/18 1515:00 23:00 07:00 IntakeIntake Total 560 ml 420 ml 240 ml OutputOutput Total 800 ml 350 ml 750 ml BalanceBalance -240 ml 70 ml -510 ml Exam Constitutional: No distress ENMT: mucosa pink and moist Gastrointestinal: ascites Extremities: pitting pedal edema 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: No lethargic Labs Result Diagram: 07/20/18 0458 07/20/18 0458 Medications Medications Current Medications IV Flush (NS 3 ml) 3 ml PER PROTOCOL IV ; Start 07/04/18 at 18:30 Ondansetron HCl (Zofran Inj) 4 mg Q6H PRN IV NAUSEA/VOMITING Last administered on 07/18/18at 11:33; Admin Dose 4 MG; Start 07/04/18 at 18:30 Docusate Sodium (Colace) 100 mg Q12H PRN PO .CONSTIPATION; Start 07/04/18 at 18:30 Albuterol (Proventil 0.083% (Neb)) 2.5 mg Q4H RESP THERAPY PRN HHN SHORTNESS OF BREATH; Start 07/04/18 at 18:30 Metoclopramide HCl (Reglan) 5 mg Q6H PRN IV NAUSEA Last administered on 2/13/19at 20:21; Admin Dose 5 MG; Start 07/05/18 at 10:00 Midodrine (Proamatine) 10 mg TID PO Last administered on 07/21/18 09:30; Admin Dose 10 MG; Start 07/06/18 at 09:00 Albuterol (Ventolin Hfa) 2 puff Q4 INH Last administered on 07/21/18 09:29; Admin Dose 2 PUFF; Start 07/06/18 at 04:30 Ondansetron HCl (Zofran Odt) 4 mg Q6H PRN ODT NAUSEA AND/OR VOMITING Last administered on 07/20/18 17:26; Admin Dose 4 MG; Start 07/06/18 at 04:00 Pantoprazole (Protonix Tab) 40 mg BID@0600,1800 PO Last administered on 07/21/18 05:45; Admin Dose 40 MG; Start 07/06/18 at 06:00 Doxycycline Hyclate 100 mg/ Sodium Chloride 250 ml @ 250 mls/hr Q12 IVPB Last administered on 07/21/18 09:28; Admin Dose 250 MLS/HR; Start 07/08/18 at 21:00 Rifaximin (Xifaxan) 200 mg TID PO Last administered on 07/21/18 09:29; Admin Dose 200 MG; Start 07/09/18 at 21:00 Ertapenem 1 gm/ Sodium Chloride 100 ml @ 200 mls/hr Q24H IVPB Last administered on 07/20/18 15:32; Admin Dose 200 MLS/HR; Start 07/14/18 at 14:00 Acetaminophen/ Hydrocodone Bitart ([place] (5/325)) 1 tab Q6H PRN PO MODERATE PAIN LEVEL 4-6 Last administered on 07/21/18 09:27; Admin Dose 1 TAB; Start 07/14/18 at 17:30 Sodium Hypochlorite ([place]akin'S (Dilute )) 1 applic DAILY IRR Last administered on 07/19/18 09:01; Admin Dose 1 APPLIC; Start 07/15/18 at 23:45 Simethicone (Mylicon) 80 mg Q6H PRN PO DISTENSION/GAS/BLOATING Last administered on 07/16/18 15:52; Admin Dose 80 MG; Start 07/16/18 at 15:30 Lactulose (Enulose) 10 gm DAILY PO Last administered on 07/21/18 09:29; Admin Dose 10 GM; Start 07/19/18 at 09:00 Spironolactone (Aldactone) 25 mg BID DIURETICS PO Last administered on 07/21/18 05:45; Admin Dose 25 MG; Start 07/19/18 at 13:00 Vancomycin HCl (Vancomycin Oral Syringe) 125 mg Q6 PO Last administered on 07/21/18 05:45; Admin Dose 125 MG; Start 07/20/18 at 18:00 Diphenhydramine HCl (Benadryl) 25 mg Q8H PRN IV PRURITUS/ITCHING Last admi nistered on 07/20/18 20:21; Admin Dose 25 MG; Start 07/20/18 at 18:30 Morphine Sulfate (morphine) 6 mg Q4H PRN PO SEVERE PAIN LEVEL 7-10; Start 07/20/18 at 23:30 PARRIS THOMAS MD Jul 21, 2018 11:41
[2018-07-21] MEDS: ERTAPENEM SODIUM 1 GM in SOD CHLORIDE 0.9% 100 ML IVPB SCH (13:55)
--- NOTE | 2018-07-21 14:17 | CONS ---
Assessment/Plan Assessment/Plan Hospital Course (Demo Recall) No acute events overnight per report. Patient is awake, looks comfortable, no fevers Microbiology: Blood culture grew Klebsiella pneumonia on July 04 susceptible to Cipro and Levaquin, stool for C. difficile positive, urine culture negative MRSA swab negative, L foot wound culture grew Klebsiella pneumoniae susceptible to ming quinolones and staph species Antimicrobials: Invanz, Doxycycline PO Vanco Physical examination: Chronically ill-appearing middle-aged woman who is in no distress. Head atraumatic normocephalic sclera nonicteric vehicle mucosa dry ne ck is supple chest rise symmetrical breath sounds diminished at bases. Heart: S1-S2. Abdomen soft bowel sounds present extremities with bilateral edema, left lower extremity dressing intact Assessment: 1. S/p sepsis with Klebsiella pneumonia bacteremia likely secondary to SBP vs #2 2. Left lower extremity abscess/ cellulitis==> neg OM, s/p i/d 07/18/18 with wound vac 3. C. difficile colitis 4. Alcoholic liver cirrhosis 5. Recurrent ascites 6. Anemia and thrombocytopenia Plan: Remains stable, change antibiotics to oral Cipro and doxycycline, continue oral vancomycin, await for repeat stool cultures, wound care per podiatry recommendations Consultation Date/Type/Reason Admit Date/Time Jul 04, 2018 at 14:22 Initial Consult Date 07/07/18 Type of Consult id Requesting Provider: ANA SPICER Date/Time of Note DATE: 07/21/18 TIME: 14:16 Exam/Review of Systems Exam Vitals Vital Signs Date Temp Pulse Resp B/P (MAP) Pulse Ox O2 O2 Flow FiO2 Time Delivery Rate 07/21/18 98.0 74 18 88/57 (67) 94 08:00 07/20/18 Room Air 14:53 07/19/18 2.0 08:00 Intake and Output 07/20/18 07/20/18 07/21/18 1515:00 23:00 07:00 IntakeIntake Total 560 ml 420 ml 240 ml OutputOutput Total 800 ml 350 ml 750 ml BalanceBalance -240 ml 70 ml -510 ml Results Result Diagram: 07/20/18 0458 07/20/18 0458 Medications Medication Current Medications IV Flush (NS 3 ml) 3 ml PER PROTOCOL IV ; Start 07/04/18 at 18:30 Ondansetron HCl (Zofran Inj) 4 mg Q6H PRN IV NAUSEA/VOMITING Last administered on 07/18/18 11:33; Admin Dose 4 MG; Start 07/04/18 at 18:30 Docusate Sodium (Colace) 100 mg Q12H PRN PO .CONSTIPATION; Start 07/04/18 at 18:30 Albuterol (Proventil 0.083% (Neb)) 2.5 mg Q4H RESP THERAPY PRN HHN SHORTNESS OF BREATH; Start 07/04/18 at 18:30 Metoclopramide HCl (Reglan) 5 mg Q6H PRN IV NAUSEA Last administered on 07/20/18 20:21; Admin Dose 5 MG; Start 07/05/18 at 10:00 Midodrine (Proamatine) 10 mg TID PO Last administered on 07/21/18 13:57; Admin Dose 10 MG; Start 07/06/18 at 09:00 Albuterol (Ventolin Hfa) 2 puff Q4 INH Last administered on 07/21/18 13:58; Admin Dose 2 PUFF; Start 07/06/18 at 04:30 Ondansetron HCl (Zofran Odt) 4 mg Q6H PRN ODT NAUSEA AND/OR VOMITING Last administered on 07/20/18 17:26; Admin Dose 4 MG; Start 07/06/18 at 04:00 Pantoprazole (Protonix Tab) 40 mg BID@0600,1800 PO Last administered on 07/21/18 05:45; Admin Dose 40 MG; Start 07/06/18 at 06:00 Doxycycline Hyclate 100 mg/ Sodium Chloride 250 ml @ 250 mls/hr Q12 IVPB Last administered on 07/21/18 09:28; Admin Dose 250 MLS/HR; Start 07/08/18 at 21:00 Rifaximin (Xifaxan) 200 mg TID PO Last administered on 07/21/18 13:55; Admin Dose 200 MG; Start 07/09/18 at 21:00 Ertapenem 1 gm/ Sodium Chloride 100 ml @ 200 mls/hr Q24H IVPB Last administered on 07/21/18 13:55; Admin Dose 200 MLS/HR; Start 07/14/18 at 14:00 Acetaminophen/ Hydrocodone Bitart ([place] (5/325)) 1 tab Q6H PRN PO MODERATE PAIN LEVEL 4-6 Last administered on 07/21/18 09:27; Admin Dose 1 TAB; Start 07/14/18 at 17:30 Sodium Hypochlorite (Dakin'S (Dilute )) 1 applic DAILY IRR Last administered on 07/19/18 09:01; Admin Dose 1 APPLIC; Start 07/15/18 at 23:45 Simethicone (Mylicon) 80 mg Q6H PRN PO DISTENSION/GAS/BLOATING Last administered on 07/16/18 15:52; Admin Dose 80 MG; Start 07/16/18 at 15:30 Lactulose (Enulose) 10 gm DAILY PO Last administered on 07/21/18 09:29; Admin Dose 10 GM; Start 07/19/18 at 09:00 Spironolactone (Aldactone) 25 mg BID DIURETICS PO Last administered on 07/21/18 05:45; Admin Dose 25 MG; Start 07/19/18 at 13:00 Vancomycin HCl (Vancomycin Oral Syringe) 125 mg Q6 PO Last administered on 07/21/18 12:40; Admin Dose 125 MG; Start 07/20/18 at 18:00 Diphenhydramine HCl (Benadryl) 25 mg Q8H PRN IV PRURITUS/ITCHING Last administered on 07/20/18 20:21; Admin Dose 25 MG; Start 07/20/18 at 18:30 Morphine Sulfate (morphine) 6 mg Q4H PRN PO SEVERE PAIN LEVEL 7-10; Start 07/20/18 at 23:30 EMA MUELLER NP Jul 21, 2018 14:17
[2018-07-21 14:40] VITALS: BP 108/53; PULSE 74; RESP 18
--- NOTE | 2018-07-21 15:31 | PN ---
Date/Time of Note Date/Time of Note DATE: 07/21/18 TIME: 15:27 Assessment/Plan VTE Prophylaxis Risk score (from Nsg)>0 risk: 7 Pharmacological prophylaxis: NA/contraindicated Pharm contraindication: liver dx Lines/Catheters IV Catheter Type (from Nrsg): Saline Lock Urinary Cath still in place: No Assessment/Plan Hospital Course 48 yo female with cirrhosis, sepsis with bacteremia, C Diff colitis and large foot wound Foot wound -Status post debridement with wound VAC placement - MRI foot shows no evidence of OM SBP with klebsiella bacteremia: - Abx course per ID Cirrhosis: -Status post paracentesis x2 during his hospital stay -Continue Aldactone, no indication for Lasix at this time - rifaxamin/lactulose, decreased lactulose frequency to daily C Diff diarrhea: - s/p PO vanco course -Patient was having persistent diarrhea secondary to lactulose, have decreased frequency to daily and diarrhea is resolving Hyponatremia: - Hypervolemic Limit free water. Loop diuretics may help Acute kidney injury likely secondary to hemodynamics and intravascular volume depletion-resolved -Nephrology consultation appreciated PT/OT DC planning: DC to SNF when stable Result Diagram: 07/20/18 0458 07/20/18 0458 Subjective 24 Hr Interval Summary Constitutional: no complaints Exam/Review of Systems Exam Vitals Vital Signs Date Temp Pulse Resp B/P (MAP) Pulse Ox O2 O2 Flow FiO2 Time Delivery Rate 07/21/18 98.0 74 18 108/53 94 14:40 (71) 07/20/18 Room Air 14:53 07/19/18 2.0 08:00 Intake and Output 07/20/18 07/20/18 07/21/18 1515:00 23:00 07:00 IntakeIntake Total 560 ml 420 ml 240 ml OutputOutput Total 800 ml 350 ml 750 ml BalanceBalance -240 ml 70 ml -510 ml Constitutional: alert, oriented Respiratory: clear to auscultation Cardiovascular: regular rate and rhythm Gastrointestinal: soft; No distended Musculoskeletal: nl extremities to inspection Medications Medication Current Medications IV Flush (NS 3 ml) 3 ml PER PROTOCOL IV ; Start 07/04/18 at 18:30 Ondansetron HCl (Zofran Inj) 4 mg Q6H PRN IV NAUSEA/VOMITING Last administered on 07/18/18at 11:33; Admin Dose 4 MG; Start 07/04/18 at 18:30 Docusate Sodium (Colace) 100 mg Q12H PRN PO .CONSTIPATION; Start 07/04/18 at 18:30 Albuterol (Proventil 0.083% (Neb)) 2.5 mg Q4H RESP THERAPY PRN HHN SHORTNESS OF BREATH; Start 07/04/18 at 18:30 Metoclopramide HCl (Reglan) 5 mg Q6H PRN IV NAUSEA Last administered on 07/20/18 20:21; Admin Dose 5 MG; Start 07/05/18 at 10:00 Midodrine (Proamatine) 10 mg TID PO Last administered on 07/21/18 13:57; Admin Dose 10 MG; Start 07/06/18 at 09:00 Albuterol (Ventolin Hfa) 2 puff Q4 INH Last administered on 07/21/18 13:58; Admin Dose 2 PUFF; Start 07/06/18 at 04:30 Ondansetron HCl (Zofran Odt) 4 mg Q6H PRN ODT NAUSEA AND/OR VOMITING Last administered on 07/20/18 17:26; Admin Dose 4 MG; Start 07/06/18 at 04:00 Pantoprazole (Protonix Tab) 40 mg BID@0600,1800 PO Last administered on 07/21/18 05:45; Admin Dose 40 MG; Start 07/06/18 at 06:00 Rifaximin (Xifaxan) 200 mg TID PO Last administered on 07/21/18 13:55; Admin Dose 200 MG; Start 07/09/18 at 21:00 Acetaminophen/ Hydrocodone Bitart ([place] (5/325)) 1 tab Q6H PRN PO MODERATE PAIN LEVEL 4-6 Last administered on 07/21/18 09:27; Admin Dose 1 TAB; Start 07/14/18 at 17:30 Sodium Hypochlorite (Dakin'S (Dilute )) 1 applic DAILY IRR Last administered on 07/19/18 09:01; Admin Dose 1 APPLIC; Start 07/15/18 at 23:45 Simethicone (Mylicon) 80 mg Q6H PRN PO DISTENSION/GAS/BLOATING Last administered on 07/16/18 15:52; Admin Dose 80 MG; Start 07/16/18 at 15:30 Lactulose (Enulose) 10 gm DAILY PO Last administered on 07/21/18at 09:29; Admin Dose 10 GM; Start 07/19/18 at 09:00 Spironolactone (Aldactone) 25 mg BID DIURETICS PO Last administered on 07/21/18at 05:45; Admin Dose 25 MG; Start 07/19/18 at 13:00 Vancomycin HCl (Vancomycin Oral Syringe) 125 mg Q6 PO Last administered on 07/08 09/23at 12:40; Admin Dose 125 MG; Start 07/20/18 at 18:00 Diphenhydramine HCl (Benadryl) 25 mg Q8H PRN IV PRURITUS/ITCHING Last administered on 07/20/18at 20:21; Admin Dose 25 MG; Start 07/20/18 at 18:30 Morphine Sulfate (morphine) 6 mg Q4H PRN PO SEVERE PAIN LEVEL 7-10; Start 07/20/18 at 23:30 Ciprofloxacin (Cipro) 500 mg BID@06,18 PO ; Start 07/21/18 at 18:00 Doxycycline Hyclate (Vibramycin) 100 mg BID PO ; Start 07/21/18 at 21:00 ANA SPICER Jul 21, 2018 15:31
[2018-07-21] MEDS: CIPROFLOXACIN 500 MG TAB PO SCH (17:44)
[2018-07-21 20:00] VITALS: BP 107/53; PULSE 81; RESP 18
[2018-07-21] MEDS: ONDANSETRON (ODT) 4 MG TAB ODT PRN (21:17)
[2018-07-21] MEDS: DOXYCYCLINE 100 MG TAB PO SCH (21:17)
[2018-07-21] MEDS: morphine LIQ (10 MG/5 ML) CUP PO PRN (21:21)
[2018-07-21] MEDS: METOCLOPRAMIDE 10 MG INJ IV PRN (23:39)
[2018-07-21] MEDS: traZODone 50 MG TAB PO PRN (23:40)
[2018-07-22] MEDS: ALBUTEROL HFA 8 GM INHALER INH SCH ×6 (01:00→20:56)
[2018-07-22 02:00] VITALS: BP 99/49; PULSE 77; RESP 18
[2018-07-22] MEDS: HYDROCODONE/APAP (5/325) TAB PO PRN ×3 (06:00→20:55)
[2018-07-22] MEDS: SPIRONOLACTONE 25 MG TAB PO SCH ×2 (06:00→17:26)
[2018-07-22] MEDS: CIPROFLOXACIN 500 MG TAB PO SCH ×2 (06:00→17:26)
[2018-07-22] MEDS: VANCOMYCIN HCL 250 MG/5ML POSYG PO SCH ×4 (06:01→23:03)
[2018-07-22] MEDS: PANTOPRAZOLE (EC) 40 MG TAB PO SCH ×2 (06:05→17:26)
[2018-07-22 08:37] VITALS: BP 100/49; PULSE 66; RESP 18
[2018-07-22] MEDS: DOXYCYCLINE 100 MG TAB PO SCH ×2 (08:39→20:55)
[2018-07-22] MEDS: SODIUM HYPOCHLORITE (1/40) 1 APPLIC BTL IRR SCH (08:39)
[2018-07-22] MEDS: RIFAXIMIN 200 MG TAB PO SCH ×3 (08:39→20:55)
[2018-07-22] MEDS: MIDODRINE 5 MG TAB PO SCH ×3 (08:39→20:55)
[2018-07-22] MEDS: LACTULOSE 30ML CUP PO SCH (08:40)
[2018-07-22] MEDS: morphine LIQ (10 MG/5 ML) CUP PO PRN ×2 (09:17→17:27)
--- NOTE | 2018-07-22 11:15 | CONS ---
Assessment/Plan Assessment/Plan Hospital Course (Demo Recall) No acute events overnight per report. Patient looks comfortable, no fevers Microbiology: Blood culture grew Klebsiella pneumonia on July 04 susceptible to Cipro and Levaquin, stool for C. difficile positive, urine culture negative MRSA swab negative, L foot wound culture grew Klebsiella pneumoniae susceptible to ming quinolones and staph species Antimicrobials: Cipro, Doxycycline PO Vanco Physical examination: Chronically ill-appearing middle-aged woman who is in no distress. Head atraumatic normocephalic sclera nonicteric vehicle mucosa dry neck is supple chest rise symmetrical breath sounds diminished at bases. Heart: S1-S2. Abdomen soft bowel sounds present extremities with bilateral edema, left lower extremity dressing intact Assessment: 1. S/p sepsis with Klebsiella pneumonia bacteremia likely secondary to SBP vs #2 2. Left lower extremity abscess/ cellulitis==> neg OM, s/p i/d 07/18/18 with wound vac 3. C. difficile colitis 4. Alcoholic liver cirrhosis 5. Recurrent ascites 6. Anemia and thrombocytopenia Plan: Remains stable, continue present care, abx, await for repeat stool cultures, wound care per podiatry recommendations Consultation Date/Type/Reason Admit Date/Time Jul 04, 2018 at 14:22 Initial Consult Date 07/07/18 Type of Consult id Requesting Provider: ANA SPICER Date/Time of Note DATE: 07/22/18 TIME: 11:14 Exam/Review of Systems Exam Vitals Vital Signs Date Temp Pulse Resp B/P (MAP) Pulse Ox O2 O2 Flow FiO2 Time Delivery Rate 07/22/18 98.2 66 18 100/49 98 Room Air 08:37 (66) 07/19/18 2.0 08:00 Intake and Output 07/21/18 07/21/18 07/22/18 1515:00 23:00 07:00 IntakeIntake Total 350 ml 800 ml OutputOutput Total 0 ml BalanceBalance 350 ml 800 ml Results Result Diagram: 07/20/18 0458 07/20/188 Results 24hrs Laboratory Tests Test 07/22/18 06:38 Lab Scanned Report BLOOD TRANSFUSION Medications Medication Current Medications IV Flush (NS 3 ml) 3 ml PER PROTOCOL IV ; Start 07/04/18 at 18:30 Ondansetron HCl (Zofran Inj) 4 mg Q6H PRN IV NAUSEA/VOMITING Last administered on 07/18/18 11:33; Admin Dose 4 MG; Start 07/04/18 at 18:30 Docusate Sodium (Colace) 100 mg Q12H PRN PO .CONSTIPATION; Start 07/04/18 at 18:30 Albuterol (Proventil 0.083% (Neb)) 2.5 mg Q4H RESP THERAPY PRN HHN SHORTNESS OF BREATH; Start 07/04/18 at 18:30 Metoclopramide HCl (Reglan) 5 mg Q6H PRN IV NAUSEA Last administered on 07/21/18 23:39; Admin Dose 5 MG; Start 07/05/18 at 10:00 Midodrine (Proamatine) 10 mg TID PO Last administered on 07/22/18 08:39; Admin Dose 10 MG; Start 07/06/18 at 09:00 Albuterol (Ventolin Hfa) 2 puff Q4 INH Last administered on 07/21/18 17:45; Admin Dose 2 PUFF; Start 07/06/18 at 04:30 Ondansetron HCl (Zofran Odt) 4 mg Q6H PRN ODT NAUSEA AND/OR VOMITING Last administered on 07/21/18 21:17; Admin Dose 4 MG; Start 07/06/18 at 04:00 Pantoprazole (Protonix Tab) 40 mg BID@0600,1800 PO Last administered on 07/22/18 06:05; Admin Dose 40 MG; Start 07/06/18 at 06:00 Rifaximin (Xifaxan) 200 mg TID PO Last administered on 07/22/18 08:39; Admin Dose 200 MG; Start 07/09/18 at 21:00 Acetaminophen/ Hydrocodone Bitart ([place] (5/325)) 1 tab Q6H PRN PO MODERATE PAIN LEVEL 4-6 Last administered on 07/22/18 06:00; Admin Dose 1 TAB; Start 07/14/18 at 17:30 Sodium Hypochlorite (Dakin'S (Dilute )) 1 applic DAILY IRR Last administered on 07/19/18 09:01; Admin Dose 1 APPLIC; Start 07/15/18 at 23:45 Simethicone (Mylicon) 80 mg Q6H PRN PO DISTENSION/GAS/BLOATING Last administered on 07/16/18 15:52; Admin Dose 80 MG; Start 07/16/18 at 15:30 Lactulose (Enulose) 10 gm DAILY PO Last administered on 07/22/18 08:40; Admin Dose 10 GM; Start 07/19/18 at 09:00 Spironolactone (Aldactone) 25 mg BID DIURETICS PO Last administered on 07/22/18 06:00; Admin Dose 25 MG; Start 07/19/18 at 13:00 Vancomycin HCl (Vancomycin Oral Syringe) 125 mg Q6 PO Last administered on 07/22/18 06:01; Admin Dose 125 MG; Start 07/20/18 at 18:00 Diphenhydramine HCl (Benadryl) 25 mg Q8H PRN IV PRURITUS/ITCHING Last administered on 07/20/18 20:21; Admin Dose 25 MG; Start 07/20/18 at 18:30 Morphine Sulfate (morphine) 6 mg Q4H PRN PO SEVERE PAIN LEVEL 7-10 Last administered on 07/22/18 09:17; Admin Dose 6 MG; Start 07/20/18 at 23:30 Ciprofloxacin (Cipro) 500 mg BID@06,18 PO Last administered on 07/22/18 06:00; Admin Dose 500 MG; Start 07/21/18 at 18:00 Doxycycline Hyclate (Vibramycin) 100 mg BID PO Last administered on 07/22/18 0 8:39; Admin Dose 100 MG; Start 07/21/18 at 21:00 Trazodone HCl (Desyrel) 50 mg HS PRN PO insomnia Last administered on 07/21/18 23:40; Admin Dose 50 MG; Start 07/21/18 at 23:30 EMA MUELLER NP Jul 22, 2018 11:15
--- NOTE | 2018-07-22 11:43 | PN ---
Date/Time of Note Date/Time of Note DATE: 07/22/18 TIME: 11:42 Assessment/Plan VTE Prophylaxis Risk score (from Nsg)>0 risk: 6 Pharmacological prophylaxis: NA/contraindicated Pharm contraindication: liver dx Lines/Catheters IV Catheter Type (from Nrsg): Saline Lock Urinary Cath still in place: No Assessment/Plan Hospital Course 48 yo female with cirrhosis, sepsis with bacteremia, C Diff colitis and large foot wound Foot wound -Status post debridement with wound VAC placement - MRI foot shows no evidence of OM SBP with klebsiella bacteremia: - Abx course per ID Cirrhosis: -Status post paracentesis x2 during his hospital stay -Continue Aldactone, no indication for Lasix at this time - rifaxamin/lactulose, decreased lactulose frequency to daily C Diff diarrhea: - s/p PO vanco course -Patient was having persistent diarrhea secondary to lactulose, have decreased frequency to daily and diarrhea is resolving Hyponatremia: - Hypervolemic Limit free water. Loop diuretics may help Acute kidney injury likely secondary to hemodynamics and intravascular volume depletion-resolved -Nephrology consultation appreciated PT/OT DC planning: DC to SNF when stable Result Diagram: 07/20/18 0458 07/20/18 0458 Results 24hrs Laboratory Tests Test 07/22/18 06:38 Lab Scanned Report BLOOD TRANSFUSION Subjective 24 Hr Interval Summary Constitutional: no complaints Exam/Review of Systems Exam Vitals Vital Signs Date Temp Pulse Resp B/P (MAP) Pulse Ox O2 O2 Flow FiO2 Time Delivery Rate 07/22/18 98.2 66 18 100/49 98 Room Air 08:37 (66) 07/19/18 2.0 08:00 Intake and Output 07/21/18 07/21/18 07/22/18 1414:59 22:59 06:59 IntakeIntake Total 350 ml 800 ml OutputOutput Total 0 ml BalanceBalance 350 ml 800 ml Constitutional: alert, oriented Respiratory: clear to auscultation Cardiovascular: regular rate and rhythm Gastrointestinal: soft; No distended Musculoskeletal: nl extremities to inspection Results Results 24hrs Laboratory Tests Test 07/22/18 06:38 Lab Scanned Report BLOOD TRANSFUSION Medications Medication Current Medications IV Flush (NS 3 ml) 3 ml PER PROTOCOL IV ; Start 07/04/18 at 18:30 Ondansetron HCl (Zofran Inj) 4 mg Q6H PRN IV NAUSEA/VOMITING Last administered on 07/18/18 11:33; Admin Dose 4 MG; Start 07/04/18 at 18:30 Docusate Sodium (Colace) 100 mg Q12H PRN PO .CONSTIPATION; Start 07/04/18 at 18:30 Albuterol (Proventil 0.083% (Neb)) 2.5 mg Q4H RESP THERAPY PRN HHN SHORTNESS OF BREATH; Start 07/04/18 at 18:30 Metoclopramide HCl (Reglan) 5 mg Q6H PRN IV NAUSEA Last administered on 07/21/18 23:39; Admin Dose 5 MG; Start 07/05/18 at 10:00 Midodrine (Proamatine) 10 mg TID PO Last administered on 07/22/18 08:39; Admin Dose 10 MG; Start 07/06/18 at 09:00 Albuterol (Ventolin Hfa) 2 puff Q4 INH Last administered on 07/21/18 17:45; Admin Dose 2 PUFF; Start 07/06/18 at 04:30 Ondansetron HCl (Zofran Odt) 4 mg Q6H PRN ODT NAUSEA AND/OR VOMITING Last administered on 07/21/18 21:17; Admin Dose 4 MG; Start 07/06/18 at 04:00 Pantoprazole (Protonix Tab) 40 mg BID@0600,1800 PO Last administered on 07/22/18 06:05; Admin Dose 40 MG; Start 07/06/18 at 06:00 Rifaximin (Xifaxan) 200 mg TID PO Last administered on 07/22/18 08:39; Admin Dose 200 MG; Start 07/09/18 at 21:00 Acetaminophen/ Hydrocodone Bitart ([place] (5/325)) 1 tab Q6H PRN PO MODERATE PAIN LEVEL 4-6 Last administered on 07/22/18 06:00; Admin Dose 1 TAB; Start 07/14/18 at 17:30 Sodium Hypochlorite (Dakin'S (Dilute )) 1 applic DAILY IRR Last a dministered on 07/19/18 09:01; Admin Dose 1 APPLIC; Start 07/15/18 at 23:45 Simethicone (Mylicon) 80 mg Q6H PRN PO DISTENSION/GAS/BLOATING Last administered on 07/16/18 15:52; Admin Dose 80 MG; Start 07/16/18 at 15:30 Lactulose (Enulose) 10 gm DAILY PO Last administered on 07/22/18 08:40; Admin Dose 10 GM; Start 07/19/18 at 09:00 Spironolactone (Aldactone) 25 mg BID DIURETICS PO Last administered on 07/22/18 06:00; Admin Dose 25 MG; Start 07/19/18 at 13:00 Vancomycin HCl (Vancomycin Oral Syringe) 125 mg Q6 PO Last administered on 07/22/18 06:01; Admin Dose 125 MG; Start 07/20/18 at 18:00 Diphenhydramine HCl (Benadryl) 25 mg Q8H PRN IV PRURITUS/ITCHING Last administered on 07/20/18 20:21; Admin Dose 25 MG; Start 07/20/18 at 18:30 Morphine Sulfate (morphine) 6 mg Q4H PRN PO SEVERE PAIN LEVEL 7-10 Last administered on 07/22/18 09:17; Admin Dose 6 MG; Start 07/20/18 at 23:30 Ciprofloxacin (Cipro) 500 mg BID@06,18 PO Last administered on 07/22/18 06:00; Admin Dose 500 MG; Start 07/21/18 at 18:00 Doxycycline Hyclate (Vibramycin) 100 mg BID PO Last administered on 07/22/18 08:39; Admin Dose 100 MG; Start 07/21/18 at 21:00 Trazodone HCl (Desyrel) 50 mg HS PRN PO insomnia Last administered on 07/21/18 23:40; Admin Dose 50 MG; Start 07/21/18 at 23:30 ANA SPICER Jul 22, 2018 11:43
[2018-07-22] MEDS: ONDANSETRON (ODT) 4 MG TAB ODT PRN ×2 (14:01→20:53)
[2018-07-22 14:04] VITALS: BP 112/56; PULSE 71; RESP 18
[2018-07-22] MEDS: METOCLOPRAMIDE 10 MG INJ IV PRN (17:26)
[2018-07-22 20:00] VITALS: BP 98/48; PULSE 74; RESP 18
[2018-07-22] MEDS: traZODone 50 MG TAB PO PRN (23:01)
[2018-07-23] MEDS: morphine LIQ (10 MG/5 ML) CUP PO PRN ×2 (00:10→13:01)
[2018-07-23] MEDS: ALBUTEROL HFA 8 GM INHALER INH SCH ×7 (01:00→20:21)
[2018-07-23 02:00] VITALS: BP 102/52; PULSE 75; RESP 18
[2018-07-23] MEDS: HYDROCODONE/APAP (5/325) TAB PO PRN ×3 (02:57→20:21)
[2018-07-23] MEDS: PANTOPRAZOLE (EC) 40 MG TAB PO SCH ×2 (05:23→17:24)
[2018-07-23] MEDS: VANCOMYCIN HCL 250 MG/5ML POSYG PO SCH ×4 (05:23→23:47)
[2018-07-23] MEDS: SPIRONOLACTONE 25 MG TAB PO SCH ×2 (05:23→17:24)
[2018-07-23] MEDS: CIPROFLOXACIN 500 MG TAB PO SCH ×2 (05:23→17:24)
[2018-07-23] MEDS: METOCLOPRAMIDE 10 MG INJ IV PRN ×3 (05:24→20:21)
[2018-07-23 08:26] VITALS: BP 106/55; PULSE 79; RESP 17
[2018-07-23] MEDS: DOXYCYCLINE 100 MG TAB PO SCH ×2 (08:56→20:20)
[2018-07-23] MEDS: LACTULOSE 30ML CUP PO SCH (08:56)
[2018-07-23] MEDS: RIFAXIMIN 200 MG TAB PO SCH ×3 (08:56→20:20)
[2018-07-23] MEDS: MIDODRINE 5 MG TAB PO SCH ×3 (08:57→20:19)
[2018-07-23] MEDS: SODIUM HYPOCHLORITE (1/40) 1 APPLIC BTL IRR SCH (09:00)
[2018-07-23] MEDS: ONDANSETRON (ODT) 4 MG TAB ODT PRN ×2 (09:03→17:24)
--- NOTE | 2018-07-23 11:00 | PN ---
Date/Time of Note Date/Time of Note DATE: 07/23/18 TIME: 10:59 Assessment/Plan VTE Prophylaxis Risk score (from Nsg)>0 risk: 6 Pharmacological prophylaxis: NA/contraindicated Pharm contraindication: liver dx Lines/Catheters IV Catheter Type (from Nrsg): Mid Line Urinary Cath still in place: No Assessment/Plan Hospital Course 48 yo female with cirrhosis, sepsis with bacteremia, C Diff colitis and large foot wound Foot wound -Status post debridement with wound VAC placement - MRI foot shows no evidence of OM SBP with klebsiella bacteremia: - Abx course per ID Cirrhosis: -Status post paracentesis x2 during his hospital stay -Continue Aldactone, no indication for Lasix at this time - rifaxamin/lactulose, decreased lactulose frequency to daily C Diff diarrhea: - s/p PO vanco course -Patient was having persistent diarrhea secondary to lactulose, have decreased frequency to daily and diarrhea is resolving Hyponatremia: - Hypervolemic Limit free water. Loop diuretics may help Acute kidney injury likely secondary to hemodynamics and intravascular volume depletion-resolved -Nephrology consultation appreciated PT/OT DC planning: DC to SNF when stable Result Diagram: 07/20/18 0458 07/20/18 0458 Subjective 24 Hr Interval Summary Constitutional: no complaints Exam/Review of Systems Exam Vitals Vital Signs Date Temp Pulse Resp B/P (MAP) Pulse Ox O2 O2 Flow FiO2 Time Delivery Rate 07/23/18 98.4 79 17 106/55 97 08:26 (72) 07/22/18 Room Air 14:04 07/19/18 2.0 08:00 Intake and Output 07/22/18 07/22/18 07/23/18 1515:00 23:00 07:00 IntakeIntake Total 480 ml 240 ml 420 ml OutputOutput Total 300 ml 250 ml 50 ml BalanceBalance 180 ml -10 ml 370 ml Constitutional: alert, oriented Respiratory: clear to auscultation Cardiovascular: regular rate and rhythm Gastrointestinal: soft; No distended Musculoskeletal: nl extremities to inspection Medications Medication Current Medications IV Flush (NS 3 ml) 3 ml PER PROTOCOL IV ; Start 07/04/18 at 18:30 Ondansetron HCl (Zofran Inj) 4 mg Q6H PRN IV NAUSEA/VOMITING Last administered on 07/18/18at 11:33; Admin Dose 4 MG; Start 07/04/18 at 18:30 Docusate Sodium (Colace) 100 mg Q12H PRN PO .CONSTIPATION; Start 07/04/18 at 18:30 Albuterol (Proventil 0.083% (Neb)) 2.5 mg Q4H RESP THERAPY PRN HHN SHORTNESS OF BREATH; Start 07/04/18 at 18:30 Metoclopramide HCl (Reglan) 5 mg Q6H PRN IV NAUSEA Last administered on 07/23/18 05:24; Admin Dose 5 MG; Start 07/05/18 at 10:00 Midodrine (Proamatine) 10 mg TID PO Last administered on 07/23/18 08:57; Admin Dose 10 MG; Start 07/06/18 at 09:00 Albuterol (Ventolin Hfa) 2 puff Q4 INH Last administered on 07/22/18 20:56; Admin Dose 2 PUFF; Start 07/06/18 at 04:30 Ondansetron HCl (Zofran Odt) 4 mg Q6H PRN ODT NAUSEA AND/OR VOMITING Last administered on 07/23/18 09:03; Admin Dose 4 MG; Start 07/06/18 at 04:00 Pantoprazole (Protonix Tab) 40 mg BID@0600,1800 PO Last administered on 07/23/18 05:23; Admin Dose 40 MG; Start 07/06/18 at 06:00 Rifaximin (Xifaxan) 200 mg TID PO Last administered on 07/23/18 08:56; Admin Dose 200 MG; Start 07/09/18 at 21:00 Acetaminophen/ Hydrocodone Bitart ([place] (5/325)) 1 tab Q6H PRN PO MODERATE PAIN LEVEL 4-6 Last administered on 07/23/18 02:57; Admin Dose 1 TAB; Start 07/14/18 at 17:30 Sodium Hypochlorite (Dakin'S (Dilute )) 1 applic DAILY IRR Last administered on 07/19/18 09:01; Admin Dose 1 APPLIC; Start 07/15/18 at 23:45 Simethicone (Mylicon) 80 mg Q6H PRN PO DISTENSION/GAS/BLOATING Last admin istered on 07/16/18 15:52; Admin Dose 80 MG; Start 07/16/18 at 15:30 Lactulose (Enulose) 10 gm DAILY PO Last administered on 07/23/18 08:56; Admin Dose 10 GM; Start 07/19/18 at 09:00 Spironolactone (Aldactone) 25 mg BID DIURETICS PO Last administered on 07/23/18 05:23; Admin Dose 25 MG; Start 07/19/18 at 13:00 Vancomycin HCl (Vancomycin Oral Syringe) 125 mg Q6 PO Last administered on 07/23/18 05:23; Admin Dose 125 MG; Start 07/20/18 at 18:00 Diphenhydramine HCl (Benadryl) 25 mg Q8H PRN IV PRURITUS/ITCHING Last administered on 07/20/18 20:21; Admin Dose 25 MG; Start 07/20/18 at 18:30 Morphine Sulfate (morphine) 6 mg Q4H PRN PO SEVERE PAIN LEVEL 7-10 Last administered on 07/23/18 00:10; Admin Dose 6 MG; Start 07/20/18 at 23:30 Ciprofloxacin (Cipro) 500 mg BID@06,18 PO Last administered on 07/23/18 05:23; Admin Dose 500 MG; Start 07/21/18 at 18:00 Doxycycline Hyclate (Vibramycin) 100 mg BID PO Last administered on 07/23/18 08:56; Admin Dose 100 MG; Start 07/21/18 at 21:00 Trazodone HCl (Desyrel) 50 mg HS PRN PO insomnia Last administered on 07/22/18 23:01; Admin Dose 50 MG; Start 07/21/18 at 23:30 ANA SPICER Jul 23, 2018 11:00
[2018-07-23 14:00] VITALS: BP 102/50; PULSE 80; RESP 17
--- NOTE | 2018-07-23 15:52 | CONS ---
Assessment/Plan Assessment/Plan Hospital Course (Demo Recall) ID PROGRESS NOTE CURRENT ABX: DAY # => Doxycycline IV + CIPRO + Vanco Liq PO + Rifaximin 24H INTERVAL SUMMARY * currently napping w/eyes closed, VSS, no fevers, NAD, without dyspnea, LLEXT which has DSG C/D/I * WBC elevated due to acute C.Diff Colitis, no fevers, VSS MICRO/OTHER * 07/18/2018 LEFT FOOT WOUND CX: TISSUE (BIOPSY) CULTURE Final Organism 1 K.PNEUMONIAE SSP PNEUMONIAE QUANTITY SCANT GROWTH Organism 2 COAGULASE NEGATIVE STAPH QUANTITY SCANT GROWTH K PNE SPP COAG NEG M.I.C. RX M.I.C. RX --------- --- --------- --- CEFAZOLIN I S CEFOTAXIME S CIPROFLOXACIN <=0.25 S <=0.5 S CLINDAMYCIN <=0.25 S DOXYCYCLINE S ERYTHROMYCIN >=8 R GENTAMICIN <=1 S LEVOFLOXACIN <=0.12 S 0.25 S OXACILLIN <=0.25 S PENICILLIN-G R RIFAMPIN <=0.5 S VANCOMYCIN <=0.5 S TOBRAMYCIN <=1 S TRIMETHOPRIM/SULFAMETHOXAZOLE <=20 S <=10 S * 07/15/18 Wound Cx: WOUND CULTURE Final Organism 1 K.PNEUMONIAE SSP PNEUMONIAE QUANTITY ISOLATED FROM BROTH ONLY * 07/15/18 PARA (-) * 07/08/18 BCx (-) * 07/07/18 (+)C.Diff * 07/06/18 Urine (-) * 07/04/18 BCx (+) GNR BLOOD CULTURE Final Organism 1 K.PNEUMONIAE SSP PNEUMONIAE K PNE SPP M.I.C. RX --------- --- CEFAZOLIN I CEFOTAXIME S CIPROFLOXACIN <=0.25 S GENTAMICIN <=1 S LEVOFLOXACIN <=0.12 S TOBRAMYCIN <=1 S TRIMETHOPRIM/SULFAMETHOXAZOLE <=20 S PHYSICAL EXAMINATION: GENERAL: Afebrile, VSS --NAD HEENT: AT, NC, anicteric NECK: Supple, trach midline CHEST: Equal chest rise bilaterally, without dyspnea on observation HEART: Pulse RRR ABDOMEN: Distended EXTREMITIES: Warm, dry - LLEXT SHIRLEY wrapped SKIN: No rash, no diaphoresis ID ASSESSMENT 48 yo F admit with: 1. GNR Sepsis on admission w/lactic acidosis + BCx (+)GNR Kleb Pneumoniae due to #2 * Leukocytosis due to C.Diff recurrence 2. Acute cellulitis LLEXT w/ left foot wound == >NO OSTEOMYELITIS * s/p I&D 07/18/28 with wound vac * 07/18/2018 LEFT FOOT WOUND CX: TISSUE (BIOPSY) CULTURE Final Organism 1 K.PNEUMONIAE SSP PNEUMONIAE QUANTITY SCANT GROWTH Organism 2 COAGULASE NEGATIVE STAPH QUANTITY SCANT GROWTH 3. ETOH Cirrhosis with persistent ascites and encephalopathy - improved w/lactulose * Status post paracentesis in the ER * Patient is on the transplant list 4. Recurrent C.Diff colitis 5. Oliguric acute kidney injury = improved (-)MRSA Nares ABX ALLERGIES: KNDA INVASIVES: PIV CURRENT ABX: DAY # => Doxycycline IV + CIPRO + Vanco Liq PO + Rifaximin ID RECOMMENDATIONS/PLAN: 1. Continue current ABX until infection resolves 2. Avoid renal toxic ABX 3. May DC on current ABX to OP APC follow up . Consultation Date/Type/Reason Admit Date/Time Jul 04, 2018 at 14:22 Initial Consult Date 07/07/18 Requesting Provider: ANA SPICER Date/Time of Note DATE: 07/23/18 TIME: 15:45 Exam/Review of Systems Exam Vitals Vital Signs Date Temp Pulse Resp B/P (MAP) Pulse Ox O2 O2 Flow FiO2 Time Delivery Rate 07/23/18 98.5 80 17 102/50 96 Room Air 14:00 (67) 07/19/18 2.0 08:00 Intake and Output 07/22/18 07/22/18 07/23/18 1515:00 23:00 07:00 IntakeIntake Total 480 ml 240 ml 420 ml OutputOutput Total 300 ml 250 ml 50 ml BalanceBalance 180 ml -10 ml 370 ml Results Result Diagram: 07/20/18 0458 07/20/18 0458 Medications Medication Current Medications IV Flush (NS 3 ml) 3 ml PER PROTOCOL IV ; Start 07/04/18 at 18:30 Ondansetron HCl (Zofran Inj) 4 mg Q6H PRN IV NAUSEA/VOMITING Last administered on 07/18/18 11:33; Admin Dose 4 MG; Start 07/04/18 at 18:30 Docusate Sodium (Colace) 100 mg Q12H PRN PO .CONSTIPATION; Start 07/04/18 at 18:30 Albuterol (Proventil 0.083% (Neb)) 2.5 mg Q4H RESP THERAPY PRN HHN SHORTNESS OF BREATH; Start 07/04/18 at 18:30 Metoclopramide HCl (Reglan) 5 mg Q6H PRN IV NAUSEA Last administered on 07/23/18 11:49; Admin Dose 5 MG; Start 07/05/18 at 10:00 Midodrine (Proamatine) 10 mg TID PO Last administered on 07/23/18 12:53; Admin Dose 10 MG; Start 07/06/18 at 09:00 Albuterol (Ventolin Hfa) 2 puff Q4 INH Last administered on 07/22/18 20:56; Admin Dose 2 PUFF; Start 07/06/18 at 04:30 Ondansetron HCl (Zofran Odt) 4 mg Q6H PRN ODT NAUSEA AND/OR VOMITING Last administered on 07/23/18 09:03; Admin Dose 4 MG; Start 07/06/18 at 04:00 Pantoprazole (Protonix Tab) 40 mg BID@0600,1800 PO Last administered on 07/23/18 05:23; Admin Dose 40 MG; Start 07/06/18 at 06:00 Rifaximin (Xifaxan) 200 mg TID PO Last administered on 07/23/18 12:52; Admin Dose 200 MG; Start 07/09/18 at 21:00 Acetaminophen/ Hydrocodone Bitart ([place] (5/325)) 1 tab Q6H PRN PO MODERATE PAIN LEVEL 4-6 Last administered on 07/23/18 11:49; Admin Dose 1 TAB; Start 07/14/18 at 17:30 Sodium Hypochlorite (Dakin'S (Dilute )) 1 applic DAILY IRR Last administered on 07/19/18 09:01; Admin Dose 1 APPLIC; Start 07/15/18 at 23:45 Simethicone (Mylicon) 80 mg Q6H PRN PO DISTENSION/GAS/BLOATING Last administered on 07/16/18 15:52; Admin Dose 80 MG; Start 07/16/18 at 15:30 Lactulose (Enulose) 10 gm DAILY PO Last administered on 07/23/18 08:56; Admin Dose 10 GM; Start 07/19/18 at 09:00 Spironolactone (Aldactone) 25 mg BID DIURETICS PO Last administered on 07/23/18 05:23; Admin Dose 25 MG; Start 07/19/18 at 13:00 Vancomycin HCl (Vancomycin Oral Syringe) 125 mg Q6 PO Last administered on 07/23/18 11:48; Admin Dose 125 MG; Start 07/20/18 at 18:00 Diphenhydramine HCl (Benadryl) 25 mg Q8H PRN IV PRURITUS/ITCHING Last administered on 07/20/18 20:21; Admin Dose 25 MG; Start 07/20/18 at 18:30 Morphine Sulfate (morphine) 6 mg Q4H PRN PO SEVERE PAIN LEVEL 7-10 Last administered on 07/23/18 13:01; Admin Dose 6 MG; Start 07/20/18 at 23:30 Ciprofloxacin (Cipro) 500 mg BID@06,18 PO Last administered on 07/23/18 05:23; Admin Dose 500 MG; Start 07/21/18 at 18:00 Doxycycline Hyclate (Vibramycin) 100 mg BID PO Last administered on 07/23/18 08:56; Admin Dose 100 MG; Start 07/21/18 at 21:00 Trazodone HCl (Desyrel) 50 mg HS PRN PO insomnia Last administered on 07/22/18 23:01; Admin Dose 50 MG; Start 07/21/18 at 23:30 CHRIS BOWEN NP Jul 23, 2018 15:52
[2018-07-23 20:00] VITALS: BP 100/52; PULSE 81; RESP 17
[2018-07-23] MEDS: traZODone 50 MG TAB PO PRN (23:45)
[2018-07-24] MEDS: ALBUTEROL HFA 8 GM INHALER INH SCH ×6 (01:58→20:35)
[2018-07-24] MEDS: morphine LIQ (10 MG/5 ML) CUP PO PRN ×4 (01:58→20:35)
[2018-07-24 02:00] VITALS: BP 102/50; PULSE 84; RESP 18
[2018-07-24] MEDS: CIPROFLOXACIN 500 MG TAB PO SCH ×2 (05:23→18:13)
[2018-07-24] MEDS: PANTOPRAZOLE (EC) 40 MG TAB PO SCH ×2 (05:23→18:13)
[2018-07-24] MEDS: SPIRONOLACTONE 25 MG TAB PO SCH ×2 (05:23→18:13)
[2018-07-24] MEDS: VANCOMYCIN HCL 250 MG/5ML POSYG PO SCH ×4 (05:24→23:38)
[2018-07-24] MEDS: HYDROCODONE/APAP (5/325) TAB PO PRN ×2 (05:32→23:38)
[2018-07-24 08:33] VITALS: BP 97/54; PULSE 81; RESP 17
[2018-07-24] MEDS: SODIUM HYPOCHLORITE (1/40) 1 APPLIC BTL IRR SCH (08:35)
[2018-07-24] MEDS: RIFAXIMIN 200 MG TAB PO SCH ×3 (08:36→20:34)
[2018-07-24] MEDS: DOXYCYCLINE 100 MG TAB PO SCH ×2 (08:36→20:34)
[2018-07-24] MEDS: LACTULOSE 30ML CUP PO SCH (08:36)
[2018-07-24] MEDS: MIDODRINE 5 MG TAB PO SCH ×3 (08:36→20:35)
[2018-07-24] MEDS: METOCLOPRAMIDE 10 MG INJ IV PRN (10:54)
[2018-07-24 14:39] VITALS: BP 95/54; PULSE 71; RESP 17
[2018-07-24 15:04] VITALS: BP 103/59; PULSE 77
[2018-07-24] MEDS: ONDANSETRON 4 MG INJ IV PRN (15:14)
--- NOTE | 2018-07-24 16:32 | CONS ---
Assessment/Plan Assessment/Plan Hospital Course (Demo Recall) ID PROGRESS NOTE CURRENT ABX: DAY # => Doxycycline IV + CIPRO + Vanco Liq PO + Rifaximin Hospital Course * 48 yo female with cirrhosis, sepsis with bacteremia, C Diff colitis and large foot wound 24H INTERVAL SUMMARY * No new issues -- she has ongoing foot pain receiving pain meds -- Left foot wound vac in place * VSS, no fevers, NAD, without dyspnea MICRO/OTHER * 07/18/2018 LEFT FOOT WOUND CX: TISSUE (BIOPSY) CULTURE Final Organism 1 K.PNEUMONIAE SSP PNEUMONIAE QUANTITY SCANT GROWTH Organism 2 COAGULASE NEGATIVE STAPH QUANTITY SCANT GROWTH K PNE SPP COAG NEG M.I.C. RX M.I.C. RX --------- --- --------- --- CEFAZOLIN I S CEFOTAXIME S CIPROFLOXACIN <=0.25 S <=0.5 S CLINDAMYCIN <=0.25 S DOXYCYCLINE S ERYTHROMYCIN >=8 R GENTAMICIN <=1 S LEVOFLOXACIN <=0.12 S 0.25 S OXACILLIN <=0.25 S PENICILLIN-G R RIFAMPIN <=0.5 S VANCOMYCIN <=0.5 S TOBRAMYCIN <=1 S TRIMETHOPRIM/SULFAMETHOXAZOLE <=20 S <=10 S * 07/15/18 Wound Cx: WOUND CULTURE Final Organism 1 K.PNEUMONIAE SSP PNEUMONIAE QUANTITY ISOLATED FROM BROTH ONLY * 07/15/18 PARA (-) * 07/08/18 BCx (-) * 07/07/18 (+)C.Diff * 07/06/18 Urine (-) * 07/04/18 BCx (+) GNR BLOOD CULTURE Final Organism 1 K.PNEUMONIAE SSP PNEUMONIAE K PNE SPP M.I.C. RX --------- --- CEFAZOLIN I CEFOTAXIME S CIPROFLOXACIN <=0.25 S GENTAMICIN <=1 S LEVOFLOXACIN <=0.12 S TOBRAMYCIN <=1 S TRIMETHOPRIM/SULFAMETHOXAZOLE <=20 S PHYSICAL EXAMINATION: GENERAL: Afebrile, VSS --NAD HEENT: AT, NC, anicteric NECK: Supple, trach midline CHEST: Equal chest rise bilaterally, without dyspnea on observation HEART: Pulse RRR ABDOMEN: Distended EXTREMITIES: Warm, dry - LLEXT SHIRLEY wrapped SKIN: No rash, no diaphoresis ID ASSESSMENT 48 yo F admit with: 1. GNR Sepsis on admission w/lactic acidosis + BCx (+)GNR Kleb Pneumoniae due to #2 * Leukocytosis due to C.Diff recurrence 2. Acute cellulitis LLEXT w/ left foot wound == >NO OSTEOMYELITIS * s/p I&D 07/18/28 with wound vac * 07/18/2018 LEFT FOOT WOUND CX: TISSUE (BIOPSY) CULTURE Final Organism 1 K.PNEUMONIAE SSP PNEUMONIAE QUANTITY SCANT GROWTH Organism 2 COAGULASE NEGATIVE STAPH QUANTITY SCANT GROWTH 3. ETOH Cirrhosis with persistent ascites and encephalopathy - improved w/lactulose * Status post paracentesis in the ER * Patient is on the transplant list 4. Recurrent C.Diff colitis 5. Oliguric acute kidney injury = improved (-)MRSA Nares ABX ALLERGIES: KNDA INVASIVES: PIV CURRENT ABX: DAY # => Doxycycline IV + CIPRO + Vanco Liq PO + Rifaximin ID RECOMMENDATIONS/PLAN: 1. Continue current ABX until infection resolves -- anticipate 21-28 days course 2. Avoid renal toxic ABX 3. May DC on current ABX to OP APC follow up . Consultation Date/Type/Reason Admit Date/Time Jul 04, 2018 at 14:22 Initial Consult Date 07/07/18 Requesting Provider: ANA SPICER Date/Time of Note DATE: 07/24/18 TIME: 16:28 Exam/Review of Systems Exam Vitals Vital Signs Date Temp Pulse Resp B/P (MAP) Pulse Ox O2 O2 Flow FiO2 Time Delivery Rate 07/24/18 77 103/59 95 15:04 (74) 07/24/18 98.0 17 Room Air 14:39 Intake and Output 07/23/18 07/23/18 07/24/18 1414:59 22:59 06:59 IntakeIntake Total 500 ml 200 ml 200 ml OutputOutput Total 400 ml 200 ml 300 ml BalanceBalance 100 ml 0 ml -100 ml Results Result Diagram: 07/20/18 0458 07/20/18 0458 Medications Medication Current Medications IV Flush (NS 3 ml) 3 ml PER PROTOCOL IV ; Start 07/04/18 at 18:30 Ondansetron HCl (Zofran Inj) 4 mg Q6H PRN IV NAUSEA/VOMITING Last administered on 07/24/18at 15:14; Admin Dose 4 MG; Start 07/04/18 at 18:30 Docusate Sodium (Colace) 100 mg Q12H PRN PO .CONSTIPATION; Start 07/04/18 at 18:30 Albuterol (Proventil 0.083% (Neb)) 2.5 mg Q4H RESP THERAPY PRN HHN SHORTNESS OF BREATH; Start 07/04/18 at 18:30 Metoclopramide HCl (Reglan) 5 mg Q6H PRN IV NAUSEA Last administered on 07/24/18at 10:54; Admin Dose 5 MG; Start 07/05/18 at 10:00 Midodrine (Proamatine) 10 mg TID PO Last administered on 07/24/18at 13:02; Admin Dose 10 MG; Start 07/06/18 at 09:00 Albuterol (Ventolin Hfa) 2 puff Q4 INH Last administered on 07/24/18at 05:24; Admin Dose 2 PUFF; Start 07/06/18 at 04:30 Ondansetron HCl (Zofran Odt) 4 mg Q6H PRN ODT NAUSEA AND/OR VOMITING Last administered on 07/23/18at 17:24; Admin Dose 4 MG; Start 07/06/18 at 04:00 Pantoprazole (Protonix Tab) 40 mg BID@0600,1800 PO Last administered on 07/24/18at 05:23; Admin Dose 40 MG; Start 07/06/18 at 06:00 Rifaximin (Xifaxan) 200 mg TID PO Last administered on 07/24/18at 13:02; Admin Dose 200 MG; Start 07/09/18 at 21:00 Acetaminophen/ Hydrocodone Bitart ([place] (5/325)) 1 tab Q6H PRN PO MODERATE PAIN LEVEL 4-6 Last administered on 07/24/18 05:32; Admin Dose 1 TAB; Start 07/14/18 at 17:30 Sodium Hypochlorite (Dakin'S (Dilute )) 1 applic DAILY IRR Last administered on 07/19/18 09:01; Admin Dose 1 APPLIC; Start 07/15/18 at 23:45 Simethicone (Mylicon) 80 mg Q6H PRN PO DISTENSION/GAS/BLOATING Last administered on 07/24/18 02:02; Admin Dose 80 MG; Start 07/16/18 at 15:30 Lactulose (Enulose) 10 gm DAILY PO Last administered on 07/24/18 08:36; Admin Dose 10 GM; Start 07/19/18 at 09:00 Spironolactone (Aldactone) 25 mg BID DIURETICS PO Last administered on 07/24/18 05:23; Admin Dose 25 MG; Start 07/19/18 at 13:00 Vancomycin HCl (Vancomycin Oral Syringe) 125 mg Q6 PO Last administered on 07/24/18 13:02; Admin Dose 125 MG; Start 07/20/18 at 18:00 Diphenhydramine HCl (Benadryl) 25 mg Q8H PRN IV PRURITUS/ITCHING Last administered on 07/20/18 20:21; Admin Dose 25 MG; Start 07/20/18 at 18:30 Morphine Sulfate (morphine) 6 mg Q4H PRN PO SEVERE PAIN LEVEL 7-10 Last administered on 07/24/18 15:14; Admin Dose 6 MG; Start 07/20/18 at 23:30 Ciprofloxacin (Cipro) 500 mg BID@06,18 PO Last administered on 07/24/18 05:23; Admin Dose 500 MG; Start 07/21/18 at 18:00 Doxycycline Hyclate (Vibramycin) 100 mg BID PO Last administered on 07/24/18 08:36; Admin Dose 100 MG; Start 07/21/18 at 21:00 Trazodone HCl (Desyrel) 50 mg HS PRN PO insomnia Last administered on 07/23/18 23:45; Admin Dose 50 MG; Start 07/21/18 at 23:30 CHRIS BOWEN TESTING LEAD Jul 24, 2018 16:32
--- NOTE | 2018-07-24 16:39 | PN ---
Date/Time of Note Date/Time of Note DATE: 07/24/18 TIME: 16:39 Assessment/Plan VTE Prophylaxis Risk score (from Nsg)>0 risk: 6 Pharmacological prophylaxis: NA/contraindicated Pharm contraindication: liver dx Lines/Catheters IV Catheter Type (from Nrsg): Mid Line Urinary Cath still in place: No Assessment/Plan Hospital Course 48 yo female with cirrhosis, sepsis with bacteremia, C Diff colitis and large foot wound Foot wound -Status post debridement with wound VAC placement - MRI foot shows no evidence of OM SBP with klebsiella bacteremia: - Abx course per ID Cirrhosis: -Status post paracentesis x2 during his hospital stay -Continue Aldactone, no indication for Lasix at this time - rifaxamin/lactulose, decreased lactulose frequency to daily C Diff diarrhea: - s/p PO vanco course -Patient was having persistent diarrhea secondary to lactulose, have decreased frequency to daily and diarrhea is resolving Hyponatremia: - Hypervolemic Limit free water. Loop diuretics may help Acute kidney injury likely secondary to hemodynamics and intravascular volume depletion-resolved -Nephrology consultation appreciated PT/OT DC planning: DC to SNF when stable Result Diagram: 07/20/18 0458 07/20/18 0458 Subjective 24 Hr Interval Summary Constitutional: no complaints Exam/Review of Systems Exam Vitals Vital Signs Date Temp Pulse Resp B/P (MAP) Pulse Ox O2 O2 Flow FiO2 Time Delivery Rate 07/24/18 77 103/59 95 15:04 (74) 07/24/18 98.0 17 Room Air 14:39 Intake and Output 07/23/18 07/23/18 07/24/18 1515:00 23:00 07:00 IntakeIntake Total 500 ml 200 ml 200 ml OutputOutput Total 400 ml 200 ml 300 ml BalanceBalance 100 ml 0 ml -100 ml Constitutional: alert, oriented Respiratory: clear to auscultation Cardiovascular: regular rate and rhythm Gastrointestinal: soft; No distended Musculoskeletal: nl extremities to inspection Medications Medication Current Medications IV Flush (NS 3 ml) 3 ml PER PROTOCOL IV ; Start 07/04/18 at 18:30 Ondansetron HCl (Zofran Inj) 4 mg Q6H PRN IV NAUSEA/VOMITING Last administered on 07/24/18at 15:14; Admin Dose 4 MG; Start 07/04/18 at 18:30 Docusate Sodium (Colace) 100 mg Q12H PRN PO .CONSTIPATION; Start 07/04/18 at 18 :30 Albuterol (Proventil 0.083% (Neb)) 2.5 mg Q4H RESP THERAPY PRN HHN SHORTNESS OF BREATH; Start 07/04/18 at 18:30 Metoclopramide HCl (Reglan) 5 mg Q6H PRN IV NAUSEA Last administered on 07/24/18 10:54; Admin Dose 5 MG; Start 07/05/18 at 10:00 Midodrine (Proamatine) 10 mg TID PO Last administered on 07/24/18 13:02; Admin Dose 10 MG; Start 07/06/18 at 09:00 Albuterol (Ventolin Hfa) 2 puff Q4 INH Last administered on 07/24/18 05:24; Admin Dose 2 PUFF; Start 07/06/18 at 04:30 Ondansetron HCl (Zofran Odt) 4 mg Q6H PRN ODT NAUSEA AND/OR VOMITING Last administered on 07/23/18 17:24; Admin Dose 4 MG; Start 07/06/18 at 04:00 Pantoprazole (Protonix Tab) 40 mg BID@0600,1800 PO Last administered on 07/24/18 05:23; Admin Dose 40 MG; Start 07/06/18 at 06:00 Rifaximin (Xifaxan) 200 mg TID PO Last administered on 07/24/18 13:02; Admin Dose 200 MG; Start 07/09/18 at 21:00 Acetaminophen/ Hydrocodone Bitart ([place] (5/325)) 1 tab Q6H PRN PO MODERATE PAIN LEVEL 4-6 Last administered on 07/24/18 05:32; Admin Dose 1 TAB; Start 07/14/18 at 17:30 Sodium Hypochlorite (Dakin'S (Dilute 40)) 1 applic DAILY IRR Last administered on 07/19/18 09:01; Admin Dose 1 APPLIC; Start 07/15/18 at 23:45 Simethicone (Mylicon) 80 mg Q6H PRN PO DISTENSION/GAS/BLOATING Last administered on 07/24/18 02:02; Admin Dose 80 MG; Start 07/16/18 at 15:30 Lactulose (Enulose) 10 gm DAILY PO Last administered on 07/24/18 08:36; Admin Dose 10 GM; Start 07/19/18 at 09:00 Spironolactone (Aldactone) 25 mg BID DIURETICS PO Last administered on 07/24/18 05:23; Admin Dose 25 MG; Start 07/19/18 at 13:00 Vancomycin HCl (Vancomycin Oral Syringe) 125 mg Q6 PO Last administered on 07/24/18 13:02; Admin Dose 125 MG; Start 07/20/18 at 18:00 Diphenhydramine HCl (Benadryl) 25 mg Q8H PRN IV PRURITUS/ITCHING Last adm inistered on 07/20/18 20:21; Admin Dose 25 MG; Start 07/20/18 at 18:30 Morphine Sulfate (morphine) 6 mg Q4H PRN PO SEVERE PAIN LEVEL 7-10 Last administered on 07/24/18 15:14; Admin Dose 6 MG; Start 07/20/18 at 23:30 Ciprofloxacin (Cipro) 500 mg BID@06,18 PO Last administered on 07/24/18 05:23; Admin Dose 500 MG; Start 07/21/18 at 18:00 Doxycycline Hyclate (Vibramycin) 100 mg BID PO Last administered on 07/24/18 08:36; Admin Dose 100 MG; Start 07/21/18 at 21:00 Trazodone HCl (Desyrel) 50 mg HS PRN PO insomnia Last administered on 07/23/18 23:45; Admin Dose 50 MG; Start 07/21/18 at 23:30 ANA SPICER Jul 24, 2018 16:39
[2018-07-24 20:00] VITALS: BP 104/55; PULSE 80; RESP 20
[2018-07-24] MEDS: traZODone 50 MG TAB PO PRN (22:43)
[2018-07-25] MEDS: ALBUTEROL HFA 8 GM INHALER INH SCH ×6 (00:37→21:09)
[2018-07-25] MEDS: morphine LIQ (10 MG/5 ML) CUP PO PRN ×4 (00:37→23:02)
[2018-07-25 02:00] VITALS: BP 95/50; PULSE 86; RESP 18
[2018-07-25] MEDS: PANTOPRAZOLE (EC) 40 MG TAB PO SCH ×2 (05:28→17:25)
[2018-07-25] MEDS: VANCOMYCIN HCL 250 MG/5ML POSYG PO SCH ×4 (05:28→23:10)
[2018-07-25] MEDS: CIPROFLOXACIN 500 MG TAB PO SCH ×2 (05:28→17:25)
[2018-07-25] MEDS: METOCLOPRAMIDE 10 MG INJ IV PRN ×2 (05:29→21:10)
[2018-07-25] MEDS: SPIRONOLACTONE 25 MG TAB PO SCH ×2 (05:40→17:25)
[2018-07-25] MEDS: HYDROCODONE/APAP (5/325) TAB PO PRN ×3 (05:40→19:56)
[2018-07-25 07:50] VITALS: BP 103/51; PULSE 79; RESP 18
[2018-07-25] MEDS: DOXYCYCLINE 100 MG TAB PO SCH ×2 (08:26→21:09)
[2018-07-25] MEDS: RIFAXIMIN 200 MG TAB PO SCH ×3 (08:26→21:10)
[2018-07-25] MEDS: MIDODRINE 5 MG TAB PO SCH ×3 (08:26→21:12)
[2018-07-25] MEDS: LACTULOSE 30ML CUP PO SCH (08:26)
[2018-07-25] MEDS: SODIUM HYPOCHLORITE (1/40) 1 APPLIC BTL IRR SCH (08:27)
[2018-07-25] MEDS: ONDANSETRON (ODT) 4 MG TAB ODT PRN (11:10)
--- NOTE | 2018-07-25 12:08 | PN ---
Date/Time of Note Date/Time of Note DATE: 07/25/18 TIME: 12:07 Assessment/Plan VTE Prophylaxis Risk score (from Nsg)>0 risk: 4 Pharmacological prophylaxis: NA/contraindicated Pharm contraindication: liver dx Lines/Catheters IV Catheter Type (from Nrsg): Mid Line Urinary Cath still in place: No Assessment/Plan Hospital Course 48 yo female with cirrhosis, sepsis with bacteremia, C Diff colitis and large foot wound Foot wound -Status post debridement with wound VAC placement - MRI foot shows no evidence of OM SBP with klebsiella bacteremia: - Abx course per ID Cirrhosis: -Status post paracentesis x2 during his hospital stay -Continue Aldactone, no indication for Lasix at this time - rifaxamin/lactulose, decreased lactulose frequency to daily C Diff diarrhea: - s/p PO vanco course -Patient was having persistent diarrhea secondary to lactulose, have decreased frequency to daily and diarrhea is resolving Hyponatremia: - Hypervolemic Limit free water. Loop diuretics may help Acute kidney injury likely secondary to hemodynamics and intravascular volume depletion-resolved -Nephrology consultation appreciated PT/OT DC planning: Patient is medically stable for DC to long term, child welfare caseworker arranging for long term placement Subjective 24 Hr Interval Summary Constitutional: no complaints Exam/Review of Systems Exam Vitals Vital Signs Date Temp Pulse Resp B/P (MAP) Pulse Ox O2 O2 Flow FiO2 Time Delivery Rate 07/25/18 97.9 79 18 103/51 99 Room Air 07:50 (68) Intake and Output 07/24/18 07/24/18 07/25/18 1515:00 23:00 07:00 IntakeIntake Total 790 ml 240 ml OutputOutput Total 50 ml 1 ml BalanceBalance 790 ml -50 ml 239 ml Constitutional: alert, oriented Respiratory: clear to auscultation Cardiovascular: regular rate and rhythm Gastrointestinal: soft Musculoskeletal: No nl extremities to inspection Medications Medication Current Medications IV Flush (NS 3 ml) 3 ml PER PROTOCOL IV ; Start 07/04/18 at 18:30 Ondansetron HCl (Zofran Inj) 4 mg Q6H PRN IV NAUSEA/VOMITING Last administered on 07/24/18at 15:14; Admin Dose 4 MG; Start 07/04/18 at 18:30 Docusate Sodium (Colace) 100 mg Q12H PRN PO .CONSTIPATION; Start 07/04/18 at 18:30 Albuterol (Proventil 0.083% (Neb)) 2.5 mg Q4H RESP THERAPY PRN HHN SHORTNESS OF BREATH; Start 07/04/18 at 18:30 Metoclopramide HCl (Reglan) 5 mg Q6H PRN IV NAUSEA Last administered on 07/25/18 05:29; Admin Dose 5 MG; Start 07/05/18 at 10:00 Midodrine (Proamatine) 10 mg TID PO Last administered on 07/25/18 08:26; Admin Dose 10 MG; Start 07/06/18 at 09:00 Albuterol (Ventolin Hfa) 2 puff Q4 INH Last administered on 07/25/18 08:26; Admin Dose 2 PUFF; Start 07/06/18 at 04:30 Ondansetron HCl (Zofran Odt) 4 mg Q6H PRN ODT NAUSEA AND/OR VOMITING Last administered on 07/25/18 11:10; Admin Dose 4 MG; Start 07/06/18 at 04:00 Pantoprazole (Protonix Tab) 40 mg BID@0600,1800 PO Last administered on 07/25/18 05:28; Admin Dose 40 MG; Start 07/06/18 at 06:00 Rifaximin (Xifaxan) 200 mg TID PO Last administered on 07/25/18 08:26; Admin Dose 200 MG; Start 07/09/18 at 21:00 Acetaminophen/ Hydrocodone Bitart ([place] (5/325)) 1 tab Q6H PRN PO MODERATE PAIN LEVEL 4-6 Last administered on 07/25/18 05:40; Admin Dose 1 TAB; Start 07/14/18 at 17:30 Sodium Hypochlorite (Dakin'S (Dilute )) 1 applic DAILY IRR Last administered on 07/25/18 08:27; Admin Dose 1 APPLIC; Start 07/15/18 at 23:45 Simethicone (Mylicon) 80 mg Q6H PRN PO DISTENSION/GAS/BLOATING Last administered on 07/25/18 05:28; Admin Dose 80 MG; Start 07/16/18 at 15:30 Lactulose (Enulose) 10 gm DAILY PO Last administered on 07/25/18 08:26; Admin Dose 10 GM; Start 07/19/18 at 09:00 Spironolactone (Aldactone) 25 mg BID DIURETICS PO Last administered on 07/25/18 05:40; Admin Dose 25 MG; Start 07/19/18 at 13:00 Vancomycin HCl (Vancomycin Oral Syringe) 125 mg Q6 PO Last administered on 05:28; Admin Dose 125 MG; Start 07/20/18 at 18:00 Diphenhydramine HCl (Benadryl) 25 mg Q8H PRN IV PRURITUS/ITCHING Last administered on 07/20/18 20:21; Admin Dose 25 MG; Start 07/20/18 at 18:30 Morphine Sulfate (morphine) 6 mg Q4H PRN PO SEVERE PAIN LEVEL 7-10 Last administered on 07/25/18 11:11; Admin Dose 6 MG; Start 07/20/18 at 23:30 Ciprofloxacin (Cipro) 500 mg BID@06,18 PO Last administered on 07/25/18 05:28; Admin Dose 500 MG; Start 07/21/18 at 18:00 Doxycycline Hyclate (Vibramycin) 100 mg BID PO Last administered on 07/25/18 08:26; Admin Dose 100 MG; Start 07/21/18 at 21:00 Trazodone HCl (Desyrel) 50 mg HS PRN PO insomnia Last administered on 07/24/18 22:43; Admin Dose 50 MG; Start 07/21/18 at 23:30 ANA SPICER Jul 25, 2018 12:08
[2018-07-25 14:50] VITALS: BP 102/51; PULSE 82; RESP 18
--- NOTE | 2018-07-25 17:09 | CONS ---
Assessment/Plan Assessment/Plan Hospital Course (Demo Recall) ID PROGRESS NOTE CURRENT ABX: DAY # => Doxycycline IV + CIPRO + Vanco Liq PO + Rifaximin Hospital Course * 48 yo female with cirrhosis, sepsis with bacteremia, C Diff colitis and large foot wound 24H INTERVAL SUMMARY * A/A/O--VSS, no fevers, NAD, without dyspnea No new issues--she has ongoing foot pain receiving pain meds--Left foot wound vac in place MICRO/OTHER * 07/18/2018 LEFT FOOT WOUND CX: TISSUE (BIOPSY) CULTURE Final Organism 1 K.PNEUMONIAE SSP PNEUMONIAE QUANTITY SCANT GROWTH Organism 2 COAGULASE NEGATIVE STAPH QUANTITY SCANT GROWTH K PNE SPP COAG NEG M.I.C. RX M.I.C. RX --------- --- --------- --- CEFAZOLIN I S CEFOTAXIME S CIPROFLOXACIN <=0.25 S <=0.5 S CLINDAMYCIN <=0.25 S DOXYCYCLINE S ERYTHROMYCIN >=8 R GENTAMICIN <=1 S LEVOFLOXACIN <=0.12 S 0.25 S OXACILLIN <=0.25 S PENICILLIN-G R RIFAMPIN <=0.5 S VANCOMYCIN <=0.5 S TOBRAMYCIN <=1 S TRIMETHOPRIM/SULFAMETHOXAZOLE <=20 S <=10 S * 07/15/18 Wound Cx: WOUND CULTURE Final Organism 1 K.PNEUMONIAE SSP PNEUMONIAE QUANTITY ISOLATED FROM BROTH ONLY * 07/15/18 PARA (-) * 07/08/18 BCx (-) * 07/07/18 (+)C.Diff * 07/06/18 Urine (-) * 07/04/18 BCx (+) GNR BLOOD CULTURE Final Organism 1 K.PNEUMONIAE SSP PNEUMONIAE K PNE SPP M.I.C. RX --------- --- CEFAZOLIN I CEFOTAXIME S CIPROFLOXACIN <=0.25 S GENTAMICIN <=1 S LEVOFLOXACIN <=0.12 S TOBRAMYCIN <=1 S TRIMETHOPRIM/SULFAMETHOXAZOLE <=20 S PHYSICAL EXAMINATION: GENERAL: Afebrile, VSS --NAD HEENT: AT, NC, anicteric NECK: Supple, trach midline CHEST: Equal chest rise bilaterally, without dyspnea on observation HEART: Pulse RRR ABDOMEN: Distended EXTREMITIES: Warm, dry - LLEXT SHIRLEY wrapped SKIN: No rash, no diaphoresis ID ASSESSMENT 48 yo F admit with: 1. GNR Sepsis on admission w/lactic acidosis + BCx (+)GNR Kleb Pneumoniae due to #2 * Leukocytosis due to C.Diff recurrence 2. Acute cellulitis LLEXT w/ left foot wound == >NO OSTEOMYELITIS * s/p I&D 07/18/28 with wound vac * 07/18/2018 LEFT FOOT WOUND CX: TISSUE (BIOPSY) CULTURE Final Organism 1 K.PNEUMONIAE SSP PNEUMONIAE QUANTITY SCANT GROWTH Organism 2 COAGULASE NEGATIVE STAPH QUANTITY SCANT GROWTH 3. ETOH Cirrhosis with persistent ascites and encephalopathy - improved w/lactulose * Status post paracentesis in the ER * Patient is on the transplant list 4. Recurrent C.Diff colitis 5. Oliguric acute kidney injury = improved (-)MRSA Nares ABX ALLERGIES: KNDA INVASIVES: PIV CURRENT ABX: DAY # => Doxycycline IV + CIPRO + Vanco Liq PO + Rifaximin ID RECOMMENDATIONS/PLAN: 1. Continue current ABX until infection resolves -- anticipate 21-28 days course 2. Avoid renal toxic ABX 3. May DC on current ABX to OP APC follow up . Consultation Date/Type/Reason Admit Date/Time Jul 04, 2018 at 14:22 Initial Consult Date 07/07/18 Requesting Provider: ANA SPICER Date/Time of Note DATE: 07/25/18 TIME: 17:04 Exam/Review of Systems Exam Vitals Vital Signs Date Temp Pulse Resp B/P (MAP) Pulse Ox O2 O2 Flow FiO2 Time Delivery Rate 07/25/18 98.3 82 18 102/51 99 Room Air 14:50 (68) Intake and Output 07/24/18 07/24/18 07/25/18 1515:00 23:00 07:00 IntakeIntake Total 790 ml 240 ml OutputOutput Total 50 ml 1 ml BalanceBalance 790 ml -50 ml 239 ml Medications Medication Current Medications IV Flush (NS 3 ml) 3 ml PER PROTOCOL IV ; Start 07/04/18 at 18:30 Ondansetron HCl (Zofran Inj) 4 mg Q6H PRN IV NAUSEA/VOMITING Last administered on 07/24/18 15:14; Admin Dose 4 MG; Start 07/04/18 at 18:30 Docusate Sodium (Colace) 100 mg Q12H PRN PO .CONSTIPATION; Start 07/04/18 at 18:30 Albuterol (Proventil 0.083% (Neb)) 2.5 mg Q4H RESP THERAPY PRN HHN SHORTNESS OF BREATH; Start 07/04/18 at 18:30 Metoclopramide HCl (Reglan) 5 mg Q6H PRN IV NAUSEA Last administered on 07/25/18 05:29; Admin Dose 5 MG; Start 07/05/18 at 10:00 Midodrine (Proamatine) 10 mg TID PO Last administered on 07/25/18 12:28; Admin Dose 10 MG; Start 07/06/18 at 09:00 Albuterol (Ventolin Hfa) 2 puff Q4 INH Last administered on 07/25/18 16:31; Admin Dose 2 PUFF; Start 07/06/18 at 04:30 Ondansetron HCl (Zofran Odt) 4 mg Q6H PRN ODT NAUSEA AND/OR VOMITING Last administered on 07/25/18 11:10; Admin Dose 4 MG; Start 07/06/18 at 04:00 Pantoprazole (Protonix Tab) 40 mg BID@0600,1800 PO Last administered on 07/25/18 05:28; Admin Dose 40 MG; Start 07/06/18 at 06:00 Rifaximin (Xifaxan) 200 mg TID PO Last administered on 07/25/18 13:06; Admin Dose 200 MG; Start 07/09/18 at 21:00 Acetaminophen/ Hydrocodone Bitart ([place] (5/325)) 1 tab Q6H PRN PO MODERATE PAIN LEVEL 4-6 Last administered on 07/25/18 13:06; Admin Dose 1 TAB; Start 07/14/18 at 17:30 Sodium Hypochlorite (Dakin'S (Dilute )) 1 applic DAILY IRR Last admi nistered on 07/25/18 08:27; Admin Dose 1 APPLIC; Start 07/15/18 at 23:45 Simethicone (Mylicon) 80 mg Q6H PRN PO DISTENSION/GAS/BLOATING Last administered on 07/25/18 16:28; Admin Dose 80 MG; Start 07/16/18 at 15:30 Lactulose (Enulose) 10 gm DAILY PO Last administered on 07/25/18 08:26; Admin Dose 10 GM; Start 07/19/18 at 09:00 Spironolactone (Aldactone) 25 mg BID DIURETICS PO Last administered on 07/25/18 05:40; Admin Dose 25 MG; Start 07/19/18 at 13:00 Vancomycin HCl (Vancomycin Oral Syringe) 125 mg Q6 PO Last administered on 07/25/18 12:26; Admin Dose 125 MG; Start 07/20/18 at 18:00 Diphenhydramine HCl (Benadryl) 25 mg Q8H PRN IV PRURITUS/ITCHING Last administered on 07/20/18 20:21; Admin Dose 25 MG; Start 07/20/18 at 18:30 Morphine Sulfate (morphine) 6 mg Q4H PRN PO SEVERE PAIN LEVEL 7-10 Last administered on 07/25/18 16:31; Admin Dose 6 MG; Start 07/20/18 at 23:30 Ciprofloxacin (Cipro) 500 mg BID@,18 PO Last administered on 07/25/18 05:28; Admin Dose 500 MG; Start 07/21/18 at 18:00 Doxycycline Hyclate (Vibramycin) 100 mg BID PO Last administered on 07/25/18 08:26; Admin Dose 100 MG; Start 07/21/18 at 21:00 Trazodone HCl (Desyrel) 50 mg HS PRN PO insomnia Last administered on 07/24/18 22:43; Admin Dose 50 MG; Start 07/21/18 at 23:30 Nystatin (Nystatin Powder) 1 applic BID TOP ; Start 07/25/18 at 21:00 CHRIS BOWEN NP Jul 25, 2018 17:09
[2018-07-25 20:00] VITALS: BP 99/44; PULSE 81; RESP 17
[2018-07-25] MEDS: NYSTATIN 30 GM POWDER BTL TOP SCH (21:09)
[2018-07-25] MEDS: traZODone 50 MG TAB PO PRN (21:10)
[2018-07-26] MEDS: ALBUTEROL HFA 8 GM INHALER INH SCH ×6 (01:00→20:07)
[2018-07-26 02:00] VITALS: BP 100/59; PULSE 90; RESP 18
[2018-07-26] MEDS: VANCOMYCIN HCL 250 MG/5ML POSYG PO SCH ×4 (05:50→23:53)
[2018-07-26] MEDS: CIPROFLOXACIN 500 MG TAB PO SCH ×2 (05:50→17:10)
[2018-07-26] MEDS: PANTOPRAZOLE (EC) 40 MG TAB PO SCH ×2 (05:50→17:10)
[2018-07-26] MEDS: HYDROCODONE/APAP (5/325) TAB PO PRN ×3 (06:01→20:20)
[2018-07-26] MEDS: SPIRONOLACTONE 25 MG TAB PO SCH ×2 (06:01→17:10)
[2018-07-26] MEDS: METOCLOPRAMIDE 10 MG INJ IV PRN ×3 (06:03→17:13)
[2018-07-26 08:00] VITALS: BP 91/52; PULSE 80; RESP 18
[2018-07-26] MEDS: NYSTATIN 30 GM POWDER BTL TOP SCH ×2 (09:00→20:08)
[2018-07-26] MEDS: SODIUM HYPOCHLORITE (1/40) 1 APPLIC BTL IRR SCH (09:00)
[2018-07-26] MEDS: LACTULOSE 30ML CUP PO SCH (09:00)
[2018-07-26] MEDS: MIDODRINE 5 MG TAB PO SCH ×3 (09:01→20:07)
[2018-07-26] MEDS: DOXYCYCLINE 100 MG TAB PO SCH ×2 (09:01→20:06)
[2018-07-26] MEDS: RIFAXIMIN 200 MG TAB PO SCH ×3 (09:03→20:07)
[2018-07-26] MEDS: morphine LIQ (10 MG/5 ML) CUP PO PRN ×3 (09:03→21:49)
--- NOTE | 2018-07-26 11:28 | PN ---
Date/Time of Note Date/Time of Note DATE: 07/26/18 TIME: 11:24 Assessment/Plan VTE Prophylaxis Risk score (from Nsg)>0 risk: 5 SCD applied (from Nsg): Yes Pharmacological prophylaxis: other Lines/Catheters IV Catheter Type (from Nrsg): Mid Line Urinary Cath still in place: No Assessment/Plan Hospital Course A/P: 48 yo female with cirrhosis, sepsis with bacteremia, C Diff colitis and large foot wound. Foot wound-Status post debridement with wound VAC placement- MRI foot shows no evidence of OM -Continue current antibiotics, wound care, cautious pain control SBP with klebsiella bacteremia: -Continue Abx course per ID -they anticipate 21-28 days of coverage Cirrhosis:-Status post paracentesis x2 during his hospital stay -Continue Aldactone, no indication for Lasix at this time -Continue rifaxamin/lactulose, decreased lactulose frequency to daily C Diff diarrhea:- s/p PO vanco course, Patient was having persistent diarrhea secondary to lactulose, have decreased frequency to daily and diarrhea is resolving -Monitor for now Hyponatremia- Hypervolemic - Limit free water. 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 Exam/Review of Systems Exam Vitals Vital Signs Date Temp Pulse Resp B/P (MAP) Pulse Ox O2 O2 Flow FiO2 Time Delivery Rate 07/26/18 98.6 80 18 91/52 (65) 96 08:00 07/25/18 Room Air 14:50 Intake and Output 07/25/18 07/25/18 07/26/18 1515:00 23:00 07:00 IntakeIntake Total 620 ml 260 ml OutputOutput Total 151 ml 110 ml BalanceBalance 469 ml 150 ml Exam Constitutional: alert, oriented Respiratory: clear to auscultation Cardiovascular: regular rate and rhythm Gastrointestinal: soft Musculoskeletal: No nl extremities to inspection Medications Medication Current Medications IV Flush (NS 3 ml) 3 ml PER PROTOCOL IV ; Start 07/04/18 at 18:30 Ondansetron HCl (Zofran Inj) 4 mg Q6H PRN IV NAUSEA/VOMITING Last administered on 07/24/18 15:14; Admin Dose 4 MG; Start 07/04/18 at 18:30 Docusate Sodium (Colace) 100 mg Q12H PRN PO .CONSTIPATION; Start 07/04/18 at 18:30 Albuterol (Proventil 0.083% (Neb)) 2.5 mg Q4H RESP THERAPY PRN HHN SHORTNESS OF BREATH; Start 07/04/18 at 18:30 Metoclopramide HCl (Reglan) 5 mg Q6H PRN IV NAUSEA Last administered on 07/26/18 09:00; Admin Dose 5 MG; Start 07/05/18 at 10:00 Midodrine (Proamatine) 10 mg TID PO Last administered on 07/26/18 09:01; Admin Dose 10 MG; Start 07/06/18 at 09:00 Albuterol (Ventolin Hfa) 2 puff Q4 INH Last administered on 07/26/18 09:05; Admin Dose 2 PUFF; Start 07/06/18 at 04:30 Ondansetron HCl (Zofran Odt) 4 mg Q6H PRN ODT NAUSEA AND/OR VOMITING Last administered on 07/25/18 11:10; Admin Dose 4 MG; Start 07/06/18 at 04:00 Pantoprazole (Protonix Tab) 40 mg BID@0600,1800 PO Last administered on 07/26/18 05:50; Admin Dose 40 MG; Start 07/06/18 at 06:00 Rifaximin (Xifaxan) 200 mg TID PO Last administered on 07/26/18 09:03; Admin D ose 200 MG; Start 07/09/18 at 21:00 Acetaminophen/ Hydrocodone Bitart ([place] (5/325)) 1 tab Q6H PRN PO MODERATE PAIN LEVEL 4-6 Last administered on 07/26/18 06:01; Admin Dose 1 TAB; Start 07/14/18 at 17:30 Sodium Hypochlorite (Dakin'S (Dilute 40)) 1 applic DAILY IRR Last administered on 07/25/18 08:27; Admin Dose 1 APPLIC; Start 07/15/18 at 23:45 Simethicone (Mylicon) 80 mg Q6H PRN PO DISTENSION/GAS/BLOATING Last administered on 07/26/18 05:58; Admin Dose 80 MG; Start 07/16/18 at 15:30 Lactulose (Enulose) 10 gm DAILY PO Last administered on 07/26/18 09:00; Admin Dose 10 GM; Start 07/19/18 at 09:00 Spironolactone (Aldactone) 25 mg BID DIURETICS PO Last administered on 07/26/18 06:01; Admin Dose 25 MG; Start 07/19/18 at 13:00 Vancomycin HCl (Vancomycin Oral Syringe) 125 mg Q6 PO Last administered on 07/26/18 05:50; Admin Dose 125 MG; Start 07/20/18 at 18:00 Diphenhydramine HCl (Benadryl) 25 mg Q8H PRN IV PRURITUS/ITCHING Last administered on 07/20/18 20:21; Admin Dose 25 MG; Start 07/20/18 at 18:30 Morphine Sulfate (morphine) 6 mg Q4H PRN PO SEVERE PAIN LEVEL 7-10 Last administered on 07/26/18 09:03; Admin Dose 6 MG; Start 07/20/18 at 23:30 Ciprofloxacin (Cipro) 500 mg BID@,18 PO Last administered on 07/26/18 05:50; Admin Dose 500 MG; Start 07/21/18 at 18:00 Doxycycline Hyclate (Vibramycin) 100 mg BID PO Last administered on 07/26/18 09:01; Admin Dose 100 MG; Start 07/21/18 at 21:00 Trazodone HCl (Desyrel) 50 mg HS PRN PO insomnia Last administered on 07/25/18 21:10; Admin Dose 50 MG; Start 07/21/18 at 23:30 Nystatin (Nystatin Powder) 1 applic BID TOP Last administered on 07/25/18 21:09; Admin Dose 1 APPLIC; Start 07/25/18 at 21:00 SHANELLE LUDWIG Jul 26, 2018 11:28
[2018-07-26 14:00] VITALS: BP 97/50; PULSE 76; RESP 20
--- NOTE | 2018-07-26 16:21 | CONS ---
Assessment/Plan Assessment/Plan Hospital Course (Demo Recall) ID PROGRESS NOTE CURRENT ABX: DAY # => Doxycycline IV + CIPRO + Vanco Liq PO + Rifaximin Hospital Course * 48 yo female with cirrhosis, sepsis with bacteremia, C Diff colitis and large foot wound 24H INTERVAL SUMMARY * Clinically stable for DC to [facility] wound care -- --Left foot wound vac in place --DC PLANNING pending accepting facility * She has pleasant affect, polite, expresses gratitude for care * No new issues -- A/A/O--VSS, no fevers, NAD, without dyspnea-she has ongoing foot pain receiving pain meds MICRO/OTHER * 07/18/2018 LEFT FOOT WOUND CX: TISSUE (BIOPSY) CULTURE Final Organism 1 K.PNEUMONIAE SSP PNEUMONIAE QUANTITY SCANT GROWTH Organism 2 COAGULASE NEGATIVE STAPH QUANTITY SCANT GROWTH K PNE SPP COAG NEG M.I.C. RX M.I.C. RX --------- --- --------- --- CEFAZOLIN I S CEFOTAXIME S CIPROFLOXACIN <=0.25 S <=0.5 S CLINDAMYCIN <=0.25 S DOXYCYCLINE S ERYTHROMYCIN >=8 R GENTAMICIN <=1 S LEVOFLOXACIN <=0.12 S 0.25 S OXACILLIN <=0.25 S PENICILLIN-G R RIFAMPIN <=0.5 S VANCOMYCIN <=0.5 S TOBRAMYCIN <=1 S TRIMETHOPRIM/SULFAMETHOXAZOLE <=20 S <=10 S * 07/15/18 Wound Cx: WOUND CULTURE Final Organism 1 K.PNEUMONIAE SSP PNEUMONIAE QUANTITY ISOLATED FROM BROTH ONLY * 07/15/18 PARA (-) * 07/08/18 BCx (-) * 07/07/18 (+)C.Diff * 07/06/18 Urine (-) * 07/04/18 BCx (+) GNR BLOOD CULTURE Final Organism 1 K.PNEUMONIAE SSP PNEUMONIAE K PNE SPP M.I.C. RX --------- --- CEFAZOLIN I CEFOTAXIME S CIPROFLOXACIN <=0.25 S GENTAMICIN <=1 S LEVOFLOXACIN <=0.12 S TOBRAMYCIN <=1 S TRIMETHOPRIM/SULFAMETHOXAZOLE <=20 S PHYSICAL EXAMINATION: GENERAL: Afebrile, VSS --NAD HEENT: AT, NC, anicteric NECK: Supple, trach midline CHEST: Equal chest rise bilaterally, without dyspnea on observation HEART: Pulse RRR ABDOMEN: Distended EXTREMITIES: Warm, dry - LLEXT SHIRLEY wrapped SKIN: No rash, no diaphoresis ID ASSESSMENT 48 yo F admit with: 1. GNR Sepsis on admission w/lactic acidosis + BCx (+)GNR Kleb Pneumoniae due to #2 * Leukocytosis due to C.Diff recurrence 2. Acute cellulitis LLEXT w/ left foot wound == >NO OSTEOMYELITIS * s/p I&D 07/18/28 with wound vac * 07/18/2018 LEFT FOOT WOUND CX: TISSUE (BIOPSY) CULTURE Final Organism 1 K.PNEUMONIAE SSP PNEUMONIAE QUANTITY SCANT GROWTH Organism 2 COAGULASE NEGATIVE STAPH QUANTITY SCANT GROWTH 3. ETOH Cirrhosis with persistent ascites and encephalopathy - improved w/lactulose * Status post paracentesis in the ER * Patient is on the transplant list 4. Recurrent C.Diff colitis 5. Oliguric acute kidney injury = improved (-)MRSA Nares ABX ALLERGIES: KNDA INVASIVES: PIV CURRENT ABX: DAY # => Doxycycline IV + CIPRO + Vanco Liq PO + Rifaximin ID RECOMMENDATIONS/PLAN: 1. Continue current ABX until infection resolves -- anticipate 21-28 days course 2. Avoid renal toxic ABX 3. May DC on current ABX to OP APC follow up . Consultation Date/Type/Reason Admit Date/Time Jul 04, 2018 at 14:22 Initial Consult Date 07/07/18 Requesting Provider: ANA SPICER Date/Time of Note DATE: 07/26/18 TIME: 16:19 Exam/Review of Systems Exam Vitals Vital Signs Date Temp Pulse Resp B/P (MAP) Pulse Ox O2 O2 Flow FiO2 Time Delivery Rate 07/26/18 98.6 80 18 91/52 (65) 96 08:00 07/25/18 Room Air 14:50 Intake and Output 07/25/18 07/25/18 07/26/18 1515:00 23:00 07:00 IntakeIntake Total 620 ml 260 ml OutputOutput Total 151 ml 110 ml BalanceBalance 469 ml 150 ml Medications Medication Current Medications IV Flush (NS 3 ml) 3 ml PER PROTOCOL IV ; Start 07/04/18 at 18:30 Ondansetron HCl (Zofran Inj) 4 mg Q6H PRN IV NAUSEA/VOMITING Last administered on 07/24/18 15:14; Admin Dose 4 MG; Start 07/04/18 at 18:30 Docusate Sodium (Colace) 100 mg Q12H PRN PO .CONSTIPATION; Start 07/04/18 at 18:30 Albuterol (Proventil 0.083% (Neb)) 2.5 mg Q4H RESP THERAPY PRN HHN SHORTNESS OF BREATH; Start 07/04/18 at 18:30 Metoclopramide HCl (Reglan) 5 mg Q6H PRN IV NAUSEA Last administered on 07/26/18 09:00; Admin Dose 5 MG; Start 07/05/18 at 10:00 Midodrine (Proamatine) 10 mg TID PO Last administered on 07/26/18 12:25; Admin Dose 10 MG; Start 07/06/18 at 09:00 Albuterol (Ventolin Hfa) 2 puff Q4 INH Last administered on 07/26/18 12:26; Admin Dose 2 PUFF; Start 07/06/18 at 04:30 Ondansetron HCl (Zofran Odt) 4 mg Q6H PRN ODT NAUSEA AND/OR VOMITING Last administered on 07/25/18 11:10; Admin Dose 4 MG; Start 07/06/18 at 04:00 Pantoprazole (Protonix Tab) 40 mg BID@0600,1800 PO Last administered on 07/26/18 05:50; Admin Dose 40 MG; Start 07/06/18 at 06:00 Rifaximin (Xifaxan) 200 mg TID PO Last administered on 07/26/18 12:25; Admin Dose 200 MG; Start 07/09/18 at 21:00 Acetaminophen/ Hydrocodone Bitart ([place] (5/325)) 1 tab Q6H PRN PO MODERATE PAIN LEVEL 4-6 Last administered on 07/26/18 12:25; Admin Dose 1 TAB; Start 07/14/18 at 17:30 Sodium Hypochlorite (Dakin'S (Dilute )) 1 applic DAILY IRR Last administered on 07/25/18 08:27; Admin Dose 1 APPLIC; Start 07/15/18 at 23:45 Simethicone (Mylicon) 80 mg Q6H PRN PO DISTENSION/GAS/BLOATING Last administered on 07/26/18 12:25; Admin Dose 80 MG; Start 07/16/18 at 15:30 Lactulose (Enulose) 10 gm DAILY PO Last administered on 07/26/18 09:00; Admin Dose 10 GM; Start 07/19/18 at 09:00 Spironolactone (Aldactone) 25 mg BID DIURETICS PO Last administered on 07/26/18 06:01; Admin Dose 25 MG; Start 07/19/18 at 13:00 Vancomycin HCl (Vancomycin Oral Syringe) 125 mg Q6 PO Last administered on 07/26/18 12:26; Admin Dose 125 MG; Start 07/20/18 at 18:00 Diphenhydramine HCl (Benadryl) 25 mg Q8H PRN IV PRURITUS/ITCHING Last administered on 07/20/18 20:21; Admin Dose 25 MG; Start 07/20/18 at 18:30 Morphine Sulfate (morphine) 6 mg Q4H PRN PO SEVERE PAIN LEVEL 7-10 Last administered on 07/26/18 09:03; Admin Dose 6 MG; Start 07/20/18 at 23:30 Ciprofloxacin (Cipro) 500 mg BID@06,18 PO Last administered on 07/26/18 05:50; Admin Dose 500 MG; Start 07/21/18 at 18:00 Doxycycline Hyclate (Vibramycin) 100 mg BID PO Last administered on 07/26/18 09:01; Admin Dose 100 MG; Start 07/21/18 at 21:00 Trazodone HCl (Desyrel) 50 mg HS PRN PO insomnia Last administered on 07/25/18 21:10; Admin Dose 50 MG; Start 07/21/18 at 23:30 Nystatin (Nystatin Powder) 1 applic BID TOP Last administered on 07/25/18at 21:09; Admin Dose 1 APPLIC; Start 07/25/18 at 21:00 CHRIS BOWEN NP Jul 26, 2018 16:21
--- NOTE | 2018-07-26 16:59 | PSY ---
Date/Time of Note Date/Time of Note DATE: 07/26/18 TIME: 16:57 Psychiatric Subjective Eval Consent Pt consented to telemedicine: No Subjective Evaluation Patient location: inpatient Chief Complaint: Left foot swelling reddness also distended abdomen History of present illness Patient is a 48-year-old female with a history of alcohol cirrhosis C. diffic ile, hypertension and IBS. Patient has history mental illness, but states she has been off medication for almost 15years. She denies feeling hopeless, denies suicidal thought and contracted for safety. Past psychiatric history Long history of mental illness Hospitalization: other Medical history Problems Medical Problems: (1) Abdominal pain Status: Acute (2) Abdominal pain Status: Acute (3) Abdominal pain Status: Acute (4) Abdominal pain Status: Acute (5) Abdominal pain Status: Acute (6) Acute hypokalemia Status: Acute (7) Acute subdural hematoma Status: Acute (8) Alcoholic liver disease Status: Acute (9) Ascites Status: Acute (10) Back strain Status: Acute (11) Cellulitis Status: Acute (12) Cirrhosis Status: Acute (13) Cirrhosis of liver Status: Acute (14) Dehydration Status: Acute (15) Dehydration with hypernatremia Status: Acute (16) Diarrhea Status: Acute (17) Elevated INR Status: Acute (18) Fall Status: Acute (19) Generalized abdominal pain Status: Acute (20) Hyperbilirubinemia Status: Acute (21) Hypokalemia Status: Acute (22) Hypokalemia, gastrointestinal losses Status: Acute (23) Hyponatremia Status: Acute (24) Hyponatremia Status: Acute (25) Intractable nausea and vomiting Status: Acute (26) Intractable nausea and vomiting Status: Acute (27) Jaundice Status: Acute (28) Laceration Status: Acute (29) Macrocytosis Status: Acute (30) Metabolic alkalosis Status: Acute (31) Nausea Status: Acute (32) Nausea Status: Acute (33) Nausea and vomiting Status: Acute (34) Obstructive cholestatic liver disease Status: Acute (35) Patient left without being seen Status: Acute (36) Postoperative seroma Status: Acute (37) Severe sepsis Status: Acute (38) Thrombocytopenia Status: Acute (39) Thrombocytopenia Status: Acute (40) Transaminitis Status: Acute (41) UTI (urinary tract infection) Status: Acute Allergies: Coded Allergies: No Known Allergy (Unverified , 07/04/18) Substance Abuse Substance abuse history: Yes Social History DPA/Conservatorship: No Psychiatric Objective Eval Review of Systems: Review of Systems: Not Applicable Physical Examination: Physical Examination: Not Applicable Energy: Adequate Interest: Adequate Mental Status Examination: Appearance: Poor Hygiene Eye Contact: Good Psychomotor Activity: Slow Behavior: Cooperative Speech: Clear AFFECT: Constricted Mood: Anxious Though Process: Linear Orientation: x4 Insight: Intact Judgement: Intact Attention Span: Distractible Assessment and Plan Assessment/Diagnosis Diagnosis Cyclothymic Disorder Recommendation/Plan Medication Management Refused meds Discharge Disposition: Other Legal Status: Voluntary (Does not meet criteria for 5150 hold) TAMMI GRANT NP Jul 26, 2018 16:59
[2018-07-26 20:00] VITALS: BP 115/63; PULSE 87; RESP 18
--- NOTE | 2018-07-26 20:08 | CONS ---
DATE OF ADMISSION: 07/04/2018 DATE OF CONSULTATION: 07/26/2018 SUBJECTIVE FINDINGS: The patient being followed for ulceration on the left foot, status post debride ment and application of a wound VAC with significant improvement. The last cultures revealed Klebsie lla pneumoniae coag-negative staph. The patient with moderate sanguineous drainage. The wound VAC c kiko denies any fever, nausea, vomiting. The patient is likely to be discharged to a skilled nurs ing facility. OBJECTIVE FINDINGS: VITAL SIGNS: Temperature 98.8, pulse is 76, respiratory rate is 20, blood pressure is 97/50, pulse o x is 96%. EXTREMITIES: Wound VAC, left foot, approximately 200 mL of serosanguineous drainage. No malodor. T he patient has good active flexion and extension of the toes. The wound VAC is a function and 125 mm Hg continuous setting. LABORATORIES: WBC 6.7, hemoglobin 7.9, hematocrit is 24.3, platelets 61. ASSESSMENT: 1. Left foot surgical ulceration. 2. Gram-negative sepsis. 3. Cellulitis, resolving. 4. Recurrent Clostridium difficile colitis. PLAN: Improved wound condition. She would benefit from debridement and allograft application to hel p shorten the time to wound healing. The patient may ultimately require skin grafting in the future and currently antibiotics recommended for additional 3 to 4 weeks, and discuss with the patient plann ed procedure is amenable further coordination of care with the operating room team obtained a consent for left foot debridement and allograft application and wound VAC application. Dictated By: LULU HARPER/XAVIER Conf#: [id number] DID#: [id number] CC: ANA SPICER MD;*EndCC*
[2018-07-26] MEDS: ONDANSETRON (ODT) 4 MG TAB ODT PRN (20:21)
[2018-07-26] MEDS: traZODone 50 MG TAB PO PRN (23:53)
[2018-07-27] VITALS (18 sets, daily range): BP systolic 87–106; BP diastolic 28–57; PULSE 76–100; RESP 14–28
[2018-07-27] MEDS: ALBUTEROL HFA 8 GM INHALER INH SCH ×6 (00:01→22:33)
[2018-07-27] MEDS: PANTOPRAZOLE (EC) 40 MG TAB PO SCH ×2 (05:21→18:00)
[2018-07-27] MEDS: VANCOMYCIN HCL 250 MG/5ML POSYG PO SCH ×3 (05:21→18:00)
[2018-07-27] MEDS: SPIRONOLACTONE 25 MG TAB PO SCH ×2 (05:21→18:00)
[2018-07-27] MEDS: CIPROFLOXACIN 500 MG TAB PO SCH ×2 (05:21→18:00)
[2018-07-27] MEDS ORDERED: SEVOFLURANE 15 MIN ONE (07:00)
[2018-07-27] MEDS ORDERED: EPHEDrine SULFATE 50 MG/5 ML SYG ONE (07:00)
[2018-07-27] MEDS: SODIUM HYPOCHLORITE (1/40) 1 APPLIC BTL IRR SCH (09:00)
[2018-07-27] MEDS: RIFAXIMIN 200 MG TAB PO SCH ×3 (09:35→22:32)
[2018-07-27] MEDS: morphine LIQ (10 MG/5 ML) CUP PO PRN (09:35)
[2018-07-27] MEDS: DOXYCYCLINE 100 MG TAB PO SCH ×2 (09:35→22:32)
[2018-07-27] MEDS: LACTULOSE 30ML CUP PO SCH (09:36)
[2018-07-27] MEDS: ONDANSETRON 4 MG INJ IV PRN (09:36)
[2018-07-27] MEDS: MIDODRINE 5 MG TAB PO SCH ×3 (09:36→22:32)
[2018-07-27] MEDS: NYSTATIN 30 GM POWDER BTL TOP SCH ×2 (09:37→22:34)
--- NOTE | 2018-07-27 13:53 | CONS ---
Assessment/Plan Assessment/Plan Hospital Course (Demo Recall) ID PROGRESS NOTE CURRENT ABX: DAY # => Doxycycline IV + CIPRO + Vanco Liq PO + Rifaximin Hospital Course * 48 yo female with cirrhosis, sepsis with bacteremia, C Diff colitis and large foot wound 24H INTERVAL SUMMARY * A/A/O -- pleasant affect, optimistic mood -- she tells me her foot wound is healing well - new plan to proceed to skin graft this admission -- pending OR * DC PLANNING pending accepting facility == now on hold for planned left foot revision w/skin graft MICRO/OTHER * 07/18/2018 LEFT FOOT WOUND CX: TISSUE (BIOPSY) CULTURE Final Organism 1 K.PNEUMONIAE SSP PNEUMONIAE QUANTITY SCANT GROWTH Organism 2 COAGULASE NEGATIVE STAPH QUANTITY SCANT GROWTH K PNE SPP COAG NEG M.I.C. RX M.I.C. RX --------- --- --------- --- CEFAZOLIN I S CEFOTAXIME S CIPROFLOXACIN <=0.25 S <=0.5 S CLINDAMYCIN <=0.25 S DOXYCYCLINE S ERYTHROMYCIN >=8 R GENTAMICIN <=1 S LEVOFLOXACIN <=0.12 S 0.25 S OXACILLIN <=0.25 S PENICILLIN-G R RIFAMPIN <=0.5 S VANCOMYCIN <=0.5 S TOBRAMYCIN <=1 S TRIMETHOPRIM/SULFAMETHOXAZOLE <=20 S <=10 S * 07/15/18 Wound Cx: WOUND CULTURE Final Organism 1 K.PNEUMONIAE SSP PNEUMONIAE QUANTITY ISOLATED FROM BROTH ONLY * 07/15/18 PARA (-) * 07/08/18 BCx (-) * 07/07/18 (+)C.Diff * 07/06/18 Urine (-) * 07/04/18 BCx (+) GNR BLOOD CULTURE Final Organism 1 K.PNEUMONIAE SSP PNEUMONIAE K PNE SPP M.I.C. RX --------- --- CEFAZOLIN I CEFOTAXIME S CIPROFLOXACIN <=0.25 S GENTAMICIN <=1 S LEVOFLOXACIN <=0.12 S TOBRAMYCIN <=1 S TRIMETHOPRIM/SULFAMETHOXAZOLE <=20 S PHYSICAL EXAMINATION: GENERAL: Afebrile, VSS --NAD HEENT: AT, NC, anicteric NECK: Supple, trach midline CHEST: Equal chest rise bilaterally, without dyspnea on observation HEART: Pulse RRR ABDOMEN: Distended EXTREMITIES: Warm, dry - LLEXT SHIRLEY wrapped SKIN: No rash, no diaphoresis ID ASSESSMENT 48 yo F admit with: 1. GNR Sepsis on admission w/lactic acidosis + BCx (+)GNR Kleb Pneumoniae due to #2 * Leukocytosis due to C.Diff recurrence 2. Acute cellulitis LLEXT w/ left foot wound == >NO OSTEOMYELITIS * s/p I&D 07/18/28 with wound vac * 07/18/2018 LEFT FOOT WOUND CX: TISSUE (BIOPSY) CULTURE Final Organism 1 K.PNEUMONIAE SSP PNEUMONIAE QUANTITY SCANT GROWTH Organism 2 COAGULASE NEGATIVE STAPH QUANTITY SCANT GROWTH 3. ETOH Cirrhosis with persistent ascites and encephalopathy - improved w/lactulose * Status post paracentesis in the ER * Patient is on the transplant list 4. Recurrent C.Diff colitis 5. Oliguric acute kidney injury = improved (-)MRSA Nares ABX ALLERGIES: KNDA INVASIVES: PIV CURRENT ABX: DAY # => Doxycycline IV + CIPRO + Vanco Liq PO + Rifaximin ID RECOMMENDATIONS/PLAN: 1. Continue current ABX until infection resolves -- anticipate 21-28 days course 2. Avoid renal toxic ABX 3. DC PLANNING pending accepting facility == now on hold for planned left foot revision w/skin graft . Consultation Date/Type/Reason Admit Date/Time Jul 04, 2018 at 14:22 Initial Consult Date 07/07/18 Requesting Provider: ANA SPICER Date/Time of Note DATE: 07/27/18 TIME: 13:48 Exam/Review of Systems Exam Vitals Vital Signs Date Temp Pulse Resp B/P (MAP) Pulse Ox O2 O2 Flow FiO2 Time Delivery Rate 07/27/18 98.8 76 18 96/51 (66) 96 08:00 07/27/18 Room Air 02:48 Intake and Output 07/26/18 07/26/18 07/27/18 1515:00 23:00 07:00 IntakeIntake Total 600 ml 240 ml BalanceBalance 600 ml 240 ml Results Result Diagram: 07/27/18 1049 07/27/18 1049 Results 24hrs Laboratory Tests Test 07/27/18 10:49 White Blood Count 3.4 #L Red Blood Count 2.37 L Hemoglobin 7.9 L Hematocrit 24.8 L Mean Corpuscular Volume 104.6 H Mean Corpuscular Hemoglobin 33.3 H Mean Corpuscular Hemoglobin Concent 31.9 L Red Cell Distribution Width 18.4 H Platelet Count 37 #L Mean Platelet Volume 10.7 H Immature Granulocytes % 0.900 H Neutrophils % 50.2 Segmented Neutrophils % (Manual) 68 Band Neutrophils % (Manual) 3 Lymphocytes % 24.3 Lymphocytes % (Manual) 12 L Monocytes % 21.1 H Monocytes % (Manual) 13 H Eosinophils % 2.9 Eosinophils % (Manual) 4 Basophils % 0.6 Nucleated Red Blood Cells % 0.0 Immature Granulocytes # 0.030 Neutrophils # 1.7 Neutrophils # (Manual) 2.3 Band Neutrophils # 0.1 Lymphocytes (Manual) 0.4 L Lymphocytes # 0.8 Monocytes # 0.7 Monocytes # (Manual) 0.4 Eosinophils # 0.1 Basophils # 0.0 Nucleated Red Blood Cells # 0.0 Pathologist Review (Hematology) YES Platelet Estimate SIG DECREASED Polychromasia 3+ Poikilocytosis 2+ Anisocytosis 1+ Macrocytosis 1+ Target Cells 1+ Ovalocytes 1+ Echinocytes 1+ Prothrombin Time 27.8 H Prothrombin Time Ratio 2.2 INR International Normalized Ratio 2.59 Activated Partial Thromboplast Time 43.1 H Thrombin Time 16.6 Sodium Level 134 L Potassium Level 3.9 Chloride Level 98 Carbon Dioxide Level 24 Anion Gap 12 Blood Urea Nitrogen 15 Creatinine 0.43 L Est Glomerular Filtrat Rate mL/min > 60 Glucose Level 84 Calcium Level 7.8 L Medications Medication Current Medications IV Flush (NS 3 ml) 3 ml PER PROTOCOL IV Last administered on 07/26/18at 20:08; Admin Dose 3 ML; Start 07/04/18 at 18:30 Ondansetron HCl (Zofran Inj) 4 mg Q6H PRN IV NAUSEA/VOMITING Last administered on 07/27/18 09:36; Admin Dose 4 MG; Start 07/04/18 at 18:30 Docusate Sodium (Colace) 100 mg Q12H PRN PO .CONSTIPATION; Start 07/04/18 at 18:30 Albuterol (Proventil 0.083% (Neb)) 2.5 mg Q4H RESP THERAPY PRN HHN SHORTNESS OF BREATH; Start 07/04/18 at 18:30 Metoclopramide HCl (Reglan) 5 mg Q6H PRN IV NAUSEA Last administered on 07/26/18 17:13; Admin Dose 5 MG; Start 07/05/18 at 10:00 Midodrine (Proamatine) 10 mg TID PO Last administered on 07/27/18 12:13; Admin Dose 10 MG; Start 07/06/18 at 09:00 Albuterol (Ventolin Hfa) 2 puff Q4 INH Last administered on 07/27/18 12:13; Admin Dose 2 PUFF; Start 07/06/18 at 04:30 Ondansetron HCl (Zofran Odt) 4 mg Q6H PRN ODT NAUSEA AND/OR VOMITING Last administered on 07/26/18 20:21; Admin Dose 4 MG; Start 07/06/18 at 04:00 Pantoprazole (Protonix Tab) 40 mg BID@0600,1800 PO Last administered on 07/26/18 17:10; Admin Dose 40 MG; Start 07/06/18 at 06:00 Rifaximin (Xifaxan) 200 mg TID PO Last administered on 07/27/18 12:12; Admin Dose 200 MG; Start 07/09/18 at 21:00 Acetaminophen/ Hydrocodone Bitart ([place] (5/325)) 1 tab Q6H PRN PO MODERATE PAIN LEVEL 4-6 Last administered on 07/26/18 20:20; Admin Dose 1 TAB; Start 07/14/18 at 17:30 Sodium Hypochlorite (Dakin'S (Dilute )) 1 applic DAILY IRR Last administered on 07/25/18 08:27; Admin Dose 1 APPLIC; Start 07/15/18 at 23:45 Simethicone (Mylicon) 80 mg Q6H PRN PO DISTENSION/GAS/BLOATING Last administered on 07/27/18 09:36; Admin Dose 80 MG; Start 07/16/18 at 15:30 Lactulose (Enulose) 10 gm DAILY PO Last administered on 07/27/18 09:36; Admin Dose 10 GM; Start 07/19/18 at 09:00 Spironolactone (Aldactone) 25 mg BID DIURETICS PO Last administered on 07/26/18 17:10; Admin Dose 25 MG; Start 07/19/18 at 13:00 Vancomycin HCl (Vancomycin Oral Syringe) 125 mg Q6 PO Last administered on 07/27/18 12:12; Admin Dose 125 MG; Start 07/20/18 at 18:00 Diphenhydramine HCl (Benadryl) 25 mg Q8H PRN IV PRURITUS/ITCHING Last administered on 07/20/18 20:21; Admin Dose 25 MG; Start 07/20/18 at 18:30 Morphine Sulfate (morphine) 6 mg Q4H PRN PO SEVERE PAIN LEVEL 7-10 Last administered on 07/27/18 09:35; Admin Dose 6 MG; Start 07/20/18 at 23:30 Ciprofloxacin (Cipro) 500 mg BID@,18 PO Last administered on 07/26/18 17:10; Admin Dose 500 MG; Start 07/21/18 at 18:00 Doxycycline Hyclate (Vibramycin) 100 mg BID PO Last administered on 07/27/18 09:35; Admin Dose 100 MG; Start 07/21/18 at 21:00 Trazodone HCl (Desyrel) 50 mg HS PRN PO insomnia Last administered on 07/26/18 23:53; Admin Dose 50 MG; Start 07/21/18 at 23:30 Nystatin (Nystatin Powder) 1 applic BID TOP Last administered on 07/27/18 09:37; Admin Dose 1 APPLIC; Start 07/25/18 at 21:00 CHRIS BOWEN NP Jul 27, 2018 13:53
[2018-07-27] MEDS: METOCLOPRAMIDE 10 MG INJ IV PRN (14:14)
[2018-07-27] MEDS: HYDROCODONE/APAP (5/325) TAB PO PRN (15:11)
--- NOTE | 2018-07-27 16:29 | PN ---
Date/Time of Note Date/Time of Note DATE: 07/27/18 TIME: 16:23 Assessment/Plan VTE [place] [facility] [place]: 6 [place] [facility] [place] contraindicated: patient refusal Pharmacological prophylaxis: NA/contraindicated Pharm contraindication: surgical contra Lines/Catheters [facility] Mid Line Urinary Cath still in place: No Assessment/Plan Assessment/Plan 1. Left foot wound s/p debridement with wound VAC - MRI foot shows no evidence of OM - Podiatry on board and appreciate recommendations. Plans for left foot debridement and allograft application and wound VAC application - Continue current antibiotics and pain control 2. SBP with klebsiella bacteremia: - Continue Abx course per ID 3. Cirrhosis with ascites - Status post paracentesis - Continue Aldactone, no indication for Lasix at this time - Continue rifaximin/lactulose, d 4. C Diff diarrhea - s/p PO vanco course - resolving 5. Acute kidney injury likely secondary to hemodynamics and intravascular volume depletion-resolved - Nephrology consultation appreciated 6. Anemia of chronic disease - stable 7. Disposition - OR today and CM on board for placement given need for IV antibiotics and wound vac care Result Diagram: 07/27/18 1049 07/27/18 1049 Results 24hrs Laboratory Tests Test 07/27/18 10:49 White Blood Count 3.4 #L Red Blood Count 2.37 L Hemoglobin 7.9 L Hematocrit 24.8 L Mean Corpuscular Volume 104.6 H Mean Corpuscular Hemoglobin 33.3 H Mean Corpuscular Hemoglobin Concent 31.9 L Red Cell Distribution Width 18.4 H Platelet Count 37 #L Mean Platelet Volume 10.7 H Immature Granulocytes % 0.900 H Neutrophils % 50.2 Segmented Neutrophils % (Manual) 68 Band Neutrophils % (Manual) 3 Lymphocytes % 24.3 Lymphocytes % (Manual) 12 L Monocytes % 21.1 H Monocytes % (Manual) 13 H Eosinophils % 2.9 Eosinophils % (Manual) 4 Basophils % 0.6 Nucleated Red Blood Cells % 0.0 Immature Granulocytes # 0.030 Neutrophils # 1.7 Neutrophils # (Manual) 2.3 Band Neutrophils # 0.1 Lymphocytes (Manual) 0.4 L Lymphocytes # 0.8 Monocytes # 0.7 Monocytes # (Manual) 0.4 Eosinophils # 0.1 Basophils # 0.0 Nucleated Red Blood Cells # 0.0 Pathologist Review (Hematology) YES Platelet Estimate SIG DECREASED Polychromasia 3+ Poikilocytosis 2+ Anisocytosis 1+ Macrocytosis 1+ Target Cells 1+ Ovalocytes 1+ Echinocytes 1+ Prothrombin Time 27.8 H Prothrombin Time Ratio 2.2 INR International Normalized Ratio 2.59 Activated Partial Thromboplast Time 43.1 H Thrombin Time 16.6 Sodium Level 134 L Potassium Level 3.9 Chloride Level 98 Carbon Dioxide Level 24 Anion Gap 12 Blood Urea Nitrogen 15 Creatinine 0.43 L Est Glomerular Filtrat Rate mL/min > 60 Glucose Level 84 Calcium Level 7.8 L Subjective 24 Hr Interval Summary Free Text/Dictation Patient is doing well but feels as if her abdomen is very distended. No acute overnight events. Plans for skin flap per podiatry today. Exam/Review of Systems Exam Vitals Vital Signs Date Temp Pulse Resp B/P (MAP) Pulse Ox O2 O2 Flow FiO2 Time Delivery Rate 07/27/18 98.8 76 18 96/51 (66) 96 08:00 07/27/18 Room Air 02:48 Intake and Output 07/26/18 07/26/18 07/27/18 1515:00 23:00 07:00 IntakeIntake Total 600 ml 240 ml BalanceBalance 600 ml 240 ml Exam General: Patient is a pleasant female, currently lying in bed HEENT: scleral icterus Neck: Supple Chest: Nontender Lungs: Clear to auscultation bilaterally no crackles rales or wheezing Heart: Normal S1-S2, Regular rate and rhythm, no murmurs Abdomen: Distended, tender diffusely, bowel sounds are present. Extremities: Normal to inspection, no edema no cyanosis Results Results 24hrs Laboratory Tests Test 07/27/18 10:49 White Blood Count 3.4 #L Red Blood Count 2.37 L Hemoglobin 7.9 L Hematocrit 24.8 L Mean Corpuscular Volume 104.6 H Mean Corpuscular Hemoglobin 33.3 H Mean Corpuscular Hemoglobin Concent 31.9 L Red Cell Distribution Width 18.4 H Platelet Count 37 #L Mean Platelet Volume 10.7 H Immature Granulocytes % 0.900 H Neutrophils % 50.2 Segmented Neutrophils % (Manual) 68 Band Neutrophils % (Manual) 3 Lymphocytes % 24.3 Lymphocytes % (Manual) 12 L Monocytes % 21.1 H Monocytes % (Manual) 13 H Eosinophils % 2.9 Eosinophils % (Manual) 4 Basophils % 0.6 Nucleated Red Blood Cells % 0.0 Immature Granulocytes # 0.030 Neutrophils # 1.7 Neutrophils # (Manual) 2.3 Band Neutrophils # 0.1 Lymphocytes (Manual) 0.4 L Lymphocytes # 0.8 Monocytes # 0.7 Monocytes # (Manual) 0.4 Eosinophils # 0.1 Basophils # 0.0 Nucleated Red Blood Cells # 0.0 Pathologist Review (Hematology) YES Platelet Estimate SIG DECREASED Polychromasia 3+ Poikilocytosis 2+ Anisocytosis 1+ Macrocytosis 1+ Target Cells 1+ Ovalocytes 1+ Echinocytes 1+ Prothrombin Time 27.8 H Prothrombin Time Ratio 2.2 INR International Normalized Ratio 2.59 Activated Partial Thromboplast Time 43.1 H Thrombin Time 16.6 Sodium Level 134 L Potassium Level 3.9 Chloride Level 98 Carbon Dioxide Level 24 Anion Gap 12 Blood Urea Nitrogen 15 Creatinine 0.43 L Est Glomerular Filtrat Rate mL/min > 60 Glucose Level 84 Calcium Level 7.8 L Medications Medication Current Medications IV Flush (NS 3 ml) 3 ml PER PROTOCOL IV Last administered on 07/26/18 20:08; Admin Dose 3 ML; Start 07/04/18 at 18:30 Ondansetron HCl (Zofran Inj) 4 mg Q6H PRN IV NAUSEA/VOMITING Last administered on 07/27/18 09:36; Admin Dose 4 MG; Start 07/04/18 at 18:30 Docusate Sodium (Colace) 100 mg Q12H PRN PO .CONSTIPATION; Start 07/04/18 at 18:30 Albuterol (Proventil 0.083% (Neb)) 2.5 mg Q4H RESP THERAPY PRN HHN SHORTNESS OF BREATH; Start 07/04/18 at 18:30 Metoclopramide HCl (Reglan) 5 mg Q6H PRN IV NAUSEA Last administered on 07/27/18 14:14; Admin Dose 5 MG; Start 07/05/18 at 10:00 Midodrine (Proamatine) 10 mg TID PO Last administered on 07/27/18 12:13; Admin Dose 10 MG; Start 07/06/18 at 09:00 Albuterol (Ventolin Hfa) 2 puff Q4 INH Last administered on 07/27/18 12:13; Admin Dose 2 PUFF; Start 07/06/18 at 04:30 Ondansetron HCl (Zofran Odt) 4 mg Q6H PRN ODT NAUSEA AND/OR VOMITING Last administered on 07/26/18 20:21; Admin Dose 4 MG; Start 07/06/18 at 04:00 Pantoprazole (Protonix Tab) 40 mg BID@0600,1800 PO Last administered on 07/26/18 17:10; Admin Dose 40 MG; Start 07/06/18 at 06:00 Rifaximin (Xifaxan) 200 mg TID PO Last administered on 07/27/18 12:12; Admin Dose 200 MG; Start 07/09/18 at 21:00 Acetaminophen/ Hydrocodone Bitart ([place] (5/325)) 1 tab Q6H PRN PO MODERATE PAIN LEVEL 4-6 Last administered on 07/27/18 15:11; Admin Dose 1 TAB; Start 07/14/18 at 17:30 Sodium Hypochlorite (Dakin'S (Dilute )) 1 applic DAILY IRR Last administered on 07/25/18 08:27; Admin Dose 1 APPLIC; Start 07/15/18 at 23:45 Simethicone (Mylicon) 80 mg Q6H PRN PO DISTENSION/GAS/BLOATING Last administered on 07/27/18 09:36; Admin Dose 80 MG; Start 07/16/18 at 15:30 Lactulose (Enulose) 10 gm DAILY PO Last administered on 07/27/18 09:36; Admin Dose 10 GM; Start 07/19/18 at 09:00 Spironolactone (Aldactone) 25 mg BID DIURETICS PO Last administered on 07/26/18 17:10; Admin Dose 25 MG; Start 07/19/18 at 13:00 Vancomycin HCl (Vancomycin Oral Syringe) 125 mg Q6 PO Last administered on 07/27/18 12:12; Admin Dose 125 MG; Start 07/20/18 at 18:00 Diphenhydramine HCl (Benadryl) 25 mg Q8H PRN IV PRURITUS/ITCHING Last administered on 07/20/18 20:21; Admin Dose 25 MG; Start 07/20/18 at 18:30 Morphine Sulfate (morphine) 6 mg Q4H PRN PO SEVERE PAIN LEVEL 7-10 Last administered on 07/27/18 09:35; Admin Dose 6 MG; Start 07/20/18 at 23:30 Ciprofloxacin (Cipro) 500 mg BID@,18 PO Last administered on 07/26/18 17:10; Admin Dose 500 MG; Start 07/21/18 at 18:00 Doxycycline Hyclate (Vibramycin) 100 mg BID PO Last administered on 07/27/18 09:35; Admin Dose 100 MG; Start 07/21/18 at 21:00 Trazodone HCl (Desyrel) 50 mg HS PRN PO insomnia Last administered on 07/26/18at 23:53; Admin Dose 50 MG; Start 07/21/18 at 23:30 Nystatin (Nystatin Powder) 1 applic BID TOP Last administered on 07/27/18 09:37; Admin Dose 1 APPLIC; Start 07/25/18 at 21:00 LOUIE RUIZ MD Jul 27, 2018 16:29
--- NOTE | 2018-07-27 18:31 | PREAC ---
Date/Time of Note Date/Time of Note DATE: 07/27/18 TIME: 18:28 Anesthesia Eval and Record Evaluation Time Pre-Procedure Interview DATE: 07/27/18 TIME: 18:28 Age 48 Sex female NPO: 8 hrs Preoperative diagnosis Lt foot skin necrosis Planned procedure Lt foot Debridement Past Medical History Past Medical History: Includes Cardio: HTN Hepatic: Hepatitis Heme: Anemia Surgery & Anesthesia Issues No known issue Meds Anticoagulation: No Beta Dipak within 24 hr: No Reason Beta Dipak not given: Pt. not on B-Dipak Active Scripts Hydrocodone/Acetaminophen ([place] 5-325 Tablet) 1 Each Tablet, 1 TAB PO Q6H PRN for PAIN, #7 TAB Prov:RADHA MORALES MD 06/28/18 Ondansetron (Ondansetron Odt) 4 Mg Tab.rapdis, 4 MG PO Q6H PRN for NAUSEA AND/OR VOMITING, #10 TAB Prov:ALEXANDRIA QUIROGA MD 06/14/18 Reported Medications Lactulose (Constulose) 10 Gm/15 Ml Solution, 10 GM PO NEEDED 06/28/18 Albuterol Sulfate* (Ventolin HFA*) 18 Gm Hfa.aer.ad, 2 PUFF INHALATION Q4H, #1 INHALER 06/28/18 Midodrine* (Midodrine*) 5 Mg Tablet, 5 MG PO TID, TAB 06/28/18 Spironolactone* (Aldactone*) 100 Mg Tablet, 100 MG PO BID, #60 TAB 05/15/18 Omeprazole* (Omeprazole*) 20 Mg Capsule.dr, 20 MG PO BID, #60 CAP 05/15/18 Potassium Chloride* (K-Dur*) 20 Meq Tab.prt.sr, 20 MEQ PO BID, TAB.SA 05/15/18 Current Medications IV Flush (NS 3 ml) 3 ml PER PROTOCOL IV Last administered on 07/26/18at 20:08; Admin Dose 3 ML; Start 07/04/18 at 18:30 Ondansetron HCl (Zofran Inj) 4 mg Q6H PRN IV NAUSEA/VOMITING Last administered on 07/27/18at 09:36; Admin Dose 4 MG; Start 07/04/18 at 18:30 Docusate Sodium (Colace) 100 mg Q12H PRN PO .CONSTIPATION; Start 07/04/18 at 18:30 Albuterol (Proventil 0.083% (Neb)) 2.5 mg Q4H RESP THERAPY PRN HHN SHORTNESS OF BREATH; Start 07/04/18 at 18:30 Metoclopramide HCl (Reglan) 5 mg Q6H PRN IV NAUSEA Last administered on 07/27/18 14:14; Admin Dose 5 MG; Start 07/05/18 at 10:00 Midodrine (Proamatine) 10 mg TID PO Last administered on 07/27/18 12:13; Admin Dose 10 MG; Start 07/06/18 at 09:00 Albuterol (Ventolin Hfa) 2 puff Q4 INH Last administered on 07/27/18 12:13; Admin Dose 2 PUFF; Start 07/06/18 at 04:30 Ondansetron HCl (Zofran Odt) 4 mg Q6H PRN ODT NAUSEA AND/OR VOMITING Last administered on 07/26/18 20:21; Admin Dose 4 MG; Start 07/06/18 at 04:00 Pantoprazole (Protonix Tab) 40 mg BID@0600,1800 PO Last administered on 07/26/18 17:10; Admin Dose 40 MG; Start 07/06/18 at 06:00 Rifaximin (Xifaxan) 200 mg TID PO Last administered on 07/27/18 12:12; Admin Dose 200 MG; Start 07/09/18 at 21:00 Acetaminophen/ Hydrocodone Bitart ([place] (5/325)) 1 tab Q6H PRN PO MODERATE PAIN LEVEL 4-6 Last administered on 07/27/18 15:11; Admin Dose 1 TAB; Start 07/14/18 at 17:30 Sodium Hypochlorite (Dakin'S (Dilute 40)) 1 applic DAILY IRR Last administered on 07/25/18 08:27; Admin Dose 1 APPLIC; Start 07/15/18 at 23:45 Simethicone (Mylicon) 80 mg Q6H PRN PO DISTENSION/GAS/BLOATING Last administered on 07/27/18 09:36; Admin Dose 80 MG; Start 07/16/18 at 15:30 Lactulose (Enulose) 10 gm DAILY PO Last administered on 07/27/18 09:36; Admin Dose 10 GM; Start 07/19/18 at 09:00 Spironolactone (Aldactone) 25 mg BID DIURETICS PO Last administered on 07/26/18 17:10; Admin Dose 25 MG; Start 07/19/18 at 13:00 Vancomycin HCl (Vancomycin Oral Syringe) 125 mg Q6 PO Last administered on 07/27/18 12:12; Admin Dose 125 MG; Start 07/20/18 at 18:00 Diphenhydramine HCl (Benadryl) 25 mg Q8H PRN IV PRURITUS/ITCHING Last administered on 07/20/18 20:21; Admin Dose 25 MG; Start 07/20/18 at 18:30 Morphine Sulfate (morphine) 6 mg Q4H PRN PO SEVERE PAIN LEVEL 7-10 Last administered on 07/27/18 09:35; Admin Dose 6 MG; Start 07/20/18 at 23:30 Ciprofloxacin (Cipro) 500 mg BID@,18 PO Last administered on 07/26/18 17:10; Admin Dose 500 MG; Start 07/21/18 at 18:00 Doxycycline Hyclate (Vibramycin) 100 mg BID PO Last administered on 07/27/18 09:35; Admin Dose 100 MG; Start 07/21/18 at 21:00 Trazodone HCl (Desyrel) 50 mg HS PRN PO insomnia Last administered on 07/26/18 23:53; Admin Dose 50 MG; Start 07/21/18 at 23:30 Nystatin (Nystatin Powder) 1 applic BID TOP Last administered on 07/27/18 09: 37; Admin Dose 1 APPLIC; Start 07/25/18 at 21:00 Nystatin (Nystatin Oint) 1 applic TID TOP ; Start 07/27/18 at 21:00 Miconazole (Monistat-3) 1 supp HS VAG ; Start 07/27/18 at 21:00; Stop 07/29/18 at 21:01 Meds reviewed: Yes Allergies Coded Allergies: No Known Allergy (Unverified , 07/04/18) Allergies Reviewed: Yes Labs/Studies Labs Reviewed: Reviewed by anesthesiologist Result Diagram: 07/27/18 1049 07/27/18 1049 Laboratory Tests 07/27/18 10:49 test: N/A Studies: ECG Pre-procedure Exam Last vitals Vital Signs Date Temp Pulse Resp B/P (MAP) Pulse Ox O2 O2 Flow FiO2 Time Delivery Rate 07/27/18 98.6 80 20 106/57 96 08:00 (73) 07/27/18 Room Air 02:48 Airway: Adequate mouth opening, Adequate thyromental dist Mallampati: Mallampati II Teeth: Normal Lung: Normal Heart: Normal ASA Physical Status ASA physical status: 3 Emergency: None Planned Anesthetic General/MAC: LMA Planned Pain Management Parenteral pain med Pre-operative Attestations Prior to commencing anesthesia and surgery, the patient was re-evaluated, there was verification of: *The patient's identity *The results of appropriate recent lab work and preoperative vital signs *The above evaluation not changing prior to induction *Anesthetic plan, risk benefits, alternative and complications discussed with patient/family; questions answered; patient/family understands, accepts and wishes to proceed. HOLLY CRESPO MD Jul 27, 2018 18:30
--- NOTE | 2018-07-27 18:38 | HPN ---
Date/Time of Note Date/Time of Note DATE: 07/27/18 TIME: 18:38 Interval H&P Admission Note Pt. seen H&P reviewed: No system changes JEANINE SAWYER DPM Jul 27, 2018 18:38
[2018-07-27] MEDS ORDERED: MIDAZOLAM 1 MG/ML 2 ML INJ ONE (18:42)
[2018-07-27] MEDS ORDERED: FENTAnyl 50 MCG/ML VIAL ONE (18:43)
[2018-07-27] MEDS ORDERED: POLYMYXIN/BACITRACIN 1L IRRIG IRR ONE (19:18)
[2018-07-27] MEDS ORDERED: LIDOCAINE 2% (SDV) 5 ML INJ ONE (19:46)
[2018-07-27] MEDS ORDERED: ETOMIDATE 20 MG INJ ONE (19:46)
[2018-07-27] MEDS ORDERED: ONDANSETRON 4 MG INJ ONE (19:47)
--- NOTE | 2018-07-27 20:07 | OPR ---
Date/Time of Note Date/Time of Note DATE: 07/27/18 TIME: 20:07 Operative Report Preoperative Diagnosis Left foot non pressure ulceration Liver cirrhosis Cellulitis Edema Postoperative Diagnosis Left foot non pressure ulceration Liver cirrhosis Cellulitis Edema Operation/Procedure Performed Left foot excisional debridement application of skin allograft to left foot application of wound VAC to left foot Surgeon Jack Sawyer DPM Organ Grinder none Anesthesia Type: general Estimated Blood Loss: 0 - 10 ml's Transfusion none Specimen none Grafts/Implants integra primatrix Ag Complications none Indications 48 y/o F patient with previously infected left ulceration and abscess formation which had undergone excisional debridement and incision and drainage. Patient had a wound VAC applied which had improved the ulceration site with granulation tissue. Patient is amenable for skin grafting with further wound VAC intervention. All of the patient's questions and concerns were addressed. No promises or guarantees were given. Procedure Description Patient was brought into the OR and kept in the supine position. The left lower extremity was scrubbed, prepped, and draped in the usual aseptic manner. Attention was directed to the left foot ulceration site. There was a 100% granular wound base, no purulence was expressed from the ulceration site. Excisional debridement of skin/subQ was performed of the left foot ulceration site. Biofilm and non-viable tissue was removed from the wound bed. 50cm2 of area was debrided. Wound dimensions were 10 x 5 x 0.2cm. No undermining appreciated to the wound edges. Copious pulse lavage with antibiotic infuse saline was used at the left foot ulceration site. An integra skin allograft was applied to the ulceration site and secured with skin [place]. A wound VAC with non-adherent dressing and black foam was applied to the left foot ulceration site with successful seal. 125mmHg and low continuous therapy settings were used. Patient was transferred to the PACU with vital signs stable and neurovascular status intact. JACK SAWYER DPM Jul 27, 2018 20:07
--- NOTE | 2018-07-27 20:07 | SIPON ---
Date/Time of Note Date/Time of Note DATE: 07/27/18 TIME: 20:05 Operative Report Preoperative Diagnosis Left foot non pressure ulceration Liver cirrhosis Cellulitis Edema Postoperative Diagnosis Left foot non pressure ulceration Liver cirrhosis Cellulitis Edema Operation/Procedure Performed Left foot excisional debridement application of skin allograft to left foot application of wound VAC to left foot Surgeon Jack Sawyer DPM geriatric nurse assistant none Anesthesia: general Estimated blood loss: 0 - 10 ml's Transfusion Required none Specimen none Grafts/Implants Integra Primatrix Ag Complications none JACK SAWYER DPM Jul 27, 2018 20:07
--- NOTE | 2018-07-27 20:09 | PAC ---
Date/Time of Note Date/Time of Note DATE: 07/27/18 TIME: 20:09 Post-Anesthesia Notes Post-Anesthesia Note Last documented vital signs Vital Signs Date Temp Pulse Resp B/P (MAP) Pulse Ox O2 O2 Flow FiO2 Time Delivery Rate 07/27/18 98.6 80 20 106/57 96 08:00 (73) 07/27/18 Room Air 02:48 Activity: WNL Respiratory function: WNL Cardiovascular function: WNL Mental status: Baseline Pain reasonably controlled: Yes Hydration appropriate: Yes Nausea/Vomiting absent: Yes Comments BP:98,54, P:88, Spo2:100%, T:98,4 HOLLY CRESPO MD Jul 27, 2018 20:09
[2018-07-27] MEDS ORDERED: MEPERIDINE 25 MG INJ IV PRN (20:30)
[2018-07-27] MEDS ORDERED: HYDROmorphONE 1 MG/5 ML IV SYRINGE IV PRN (20:30)
[2018-07-27] MEDS ORDERED: DIPHENHYDRAMINE 50 MG INJ IV PRN (20:30)
[2018-07-27] MEDS ORDERED: FENTAnyl 50 MCG/ML VIAL IV PRN (20:30)
[2018-07-27] MEDS ORDERED: ONDANSETRON 4 MG INJ IV PRN (20:30)
[2018-07-27] MEDS: NYSTATIN 15 GM OINT TOP SCH (22:32)
[2018-07-27] MEDS: MICONAZOLE 200 MG VAG SUPP VAG SCH (22:33)
[2018-07-28] MEDS: VANCOMYCIN HCL 250 MG/5ML POSYG PO SCH ×4 (00:20→17:04)
[2018-07-28] MEDS: HYDROCODONE/APAP (5/325) TAB PO PRN ×2 (01:26→08:29)
[2018-07-28] MEDS: ALBUTEROL HFA 8 GM INHALER INH SCH ×6 (01:34→20:41)
[2018-07-28] MEDS: METOCLOPRAMIDE 10 MG INJ IV PRN ×3 (01:34→17:04)
[2018-07-28 03:00] VITALS: BP 99/48; PULSE 88; RESP 20
[2018-07-28] MEDS: CIPROFLOXACIN 500 MG TAB PO SCH ×2 (05:45→17:04)
[2018-07-28] MEDS: SPIRONOLACTONE 25 MG TAB PO SCH ×2 (05:45→17:04)
[2018-07-28] MEDS: PANTOPRAZOLE (EC) 40 MG TAB PO SCH ×2 (05:48→17:08)
[2018-07-28] MEDS: morphine LIQ (10 MG/5 ML) CUP PO PRN (05:52)
[2018-07-28 08:00] VITALS: BP 91/50; PULSE 56; RESP 20
[2018-07-28] MEDS: DOXYCYCLINE 100 MG TAB PO SCH ×2 (08:28→20:41)
[2018-07-28] MEDS: LACTULOSE 30ML CUP PO SCH (08:28)
[2018-07-28] MEDS: RIFAXIMIN 200 MG TAB PO SCH ×3 (08:28→20:41)
[2018-07-28] MEDS: MIDODRINE 5 MG TAB PO SCH ×3 (08:28→20:40)
[2018-07-28] MEDS: SODIUM HYPOCHLORITE (1/40) 1 APPLIC BTL IRR SCH (08:31)
[2018-07-28] MEDS: NYSTATIN 30 GM POWDER BTL TOP SCH ×2 (08:31→20:42)
[2018-07-28] MEDS: NYSTATIN 15 GM OINT TOP SCH ×3 (08:31→20:42)
--- NOTE | 2018-07-28 09:05 | PN ---
Date/Time of Note Date/Time of Note DATE: 07/28/18 TIME: 09:04 Assessment/Plan VTE Prophylaxis Risk score (from [facility])>0 risk: 6 SCD applied (from [facility]): No SCD contraindicated: other Pharmacological prophylaxis: NA/contraindicated Pharm contraindication: liver dx, thrombocytopenia Lines/Catheters IV C[facility]ter Type (from [facility] Mid Line Urinary Cath still in place: No Assessment/Plan Assessment/Plan 1. Left foot wound s/p debridement with wound VAC - s/p skin allograft and wound vac placement 07/27/18 - MRI foot shows no evidence of OM - Podiatry on board and appreciate recommendations. - Continue current antibiotics and pain control 2. SBP with klebsiella bacteremia: - Continue Abx course per ID 3. Cirrhosis with ascites - Status post paracentesis x2 - will schedule another paracentesis tomorrow if possible for comfort - Continue Aldactone - Continue rifaximin/lactulose 4. C Diff diarrhea - s/p PO vanco course - resolving 5. Acute kidney injury likely secondary to hemodynamics and intravascular volume depletion-resolved - Nephrology consultation appreciated 6. Anemia of chronic disease - stable 7. Disposition - Paracentesis ordered for tomorrow if possible for comfort. Awaiting placement for wound care, IV antibiotics and wound vac management Result Diagram: 07/28/18 0533 07/28/18 0533 Results 24hrs Laboratory Tests Test 07/27/18 10:49 07/28/18 05:33 White Blood Count 3.4 #L 4.6 #L Red Blood Count 2.37 L 2.39 L Hemoglobin 7.9 L 8.0 L Hematocrit 24.8 L 25.6 L Mean Corpuscular Volume 104.6 H 107.1 H Mean Corpuscular Hemoglobin 33.3 H 33.5 H Mean Corpuscular Hemoglobin Concent 31.9 L 31.3 L Red Cell Distribution Width 18.4 H 18.5 H Platelet Count 37 #L 41 L Mean Platelet Volume 10.7 H 10.2 Immature Granulocytes % 0.900 H 0.900 H Neutrophils % 50.2 44.7 Segmented Neutrophils % (Manual) 68 Band Neutrophils % (Manual) 3 Lymphocytes % 24.3 30.8 Lymphocytes % (Manual) 12 L Monocytes % 21.1 H 20.5 H Monocytes % (Manual) 13 H Eosinophils % 2.9 2.4 Eosinophils % (Manual) 4 Basophils % 0.6 0.7 Nucleated Red Blood Cells % 0.0 0.0 Immature Granulocytes # 0.030 0.040 H Neutrophils # 1.7 2.1 Neutrophils # (Manual) 2.3 Band Neutrophils # 0.1 Lymphocytes (Manual) 0.4 L Lymphocytes # 0.8 1.4 Monocytes # 0.7 0.9 Monocytes # (Manual) 0.4 Eosinophils # 0.1 0.1 Basophils # 0.0 0.0 Nucleated Red Blood Cells # 0.0 0.0 Pathologist Review (Hematology) Platelet Estimate SIG DECREASED Polychromasia 3+ Poikilocytosis 2+ Anisocytosis 1+ Macrocytosis 1+ Target Cells 1+ Ovalocytes 1+ Echinocytes 1+ Prothrombin Time 27.8 H Prothrombin Time Ratio 2.2 INR International Normalized Ratio 2.59 Activated Partial Thromboplast Time 43.1 H Thrombin Time 16.6 Path Consult Signing Pathologist DIANE ZARATE MD Sodium Level 134 L 135 Potassium Level 3.9 4.3 Chloride Level 98 103 Carbon Dioxide Level 24 25 Anion Gap 12 7 Blood Urea Nitrogen 15 18 Creatinine 0.43 L 0.49 Est Glomerular Filtrat Rate mL/min > 60 > 60 Glucose Level 84 88 Calcium Level 7.8 L 8.0 L Magnesium Level 1.7 Total Bilirubin 8.3 H Direct Bilirubin 1.60 H Indirect Bilirubin 6.7 H Aspartate Amino Transf (AST/SGOT) 78 H Alanine Aminotransferase (ALT/SGPT) 54 Alkaline Phosphatase 98 Total Protein 5.3 L Albumin 2.0 L Globulin 3.30 H Albumin/Globulin Ratio 0.60 Subjective 24 Hr Interval Summary Free Text/Dictation Patient states shes experiencing more pain in left foot following this surgery. She also is very uncomfortable, abdominal smith given increase in fluid collec tion and distension Exam/Review of Systems Exam Vitals Vital Signs Date Temp Pulse Resp B/P (MAP) Pulse Ox O2 O2 Flow FiO2 Time Delivery Rate 07/28/18 97.8 56 20 91/50 (64) 96 08:00 07/27/18 Nasal 2.0 21:06 Cannula Intake and Output 07/27/18 07/27/18 07/28/18 1515:00 23:00 07:00 IntakeIntake Total 150 ml OutputOutput Total 30 ml BalanceBalance 120 ml Exam General: Patient is a pleasant female, currently lying in bed. mild distress secondary to pain HEENT: scleral icterus Neck: Supple Chest: Nontender Lungs: Clear to auscultation bilaterally, diminished. no wheezing Heart: Normal S1-S2, Regular rate and rhythm, no murmurs Abdomen: Soft, tender diffusely, distended with +fluid shift, bowel sounds are present. Extremities: Normal to inspection, no edema no cyanosis Results Results 24hrs Laboratory Tests Test 07/27/18 10:49 07/28/18 05:33 White Blood Count 3.4 #L 4.6 #L Red Blood Count 2.37 L 2.39 L Hemoglobin 7.9 L 8.0 L Hematocrit 24.8 L 25.6 L Mean Corpuscular Volume 104.6 H 107.1 H Mean Corpuscular Hemoglobin 33.3 H 33.5 H Mean Corpuscular Hemoglobin Concent 31.9 L 31.3 L Red Cell Distribution Width 18.4 H 18.5 H Platelet Count 37 #L 41 L Mean Platelet Volume 10.7 H 10.2 Immature Granulocytes % 0.900 H 0.900 H Neutrophils % 50.2 44.7 Segmented Neutrophils % (Manual) 68 Band Neutrophils % (Manual) 3 Lymphocytes % 24.3 30.8 Lymphocytes % (Manual) 12 L Monocytes % 21.1 H 20.5 H Monocytes % (Manual) 13 H Eosinophils % 2.9 2.4 Eosinophils % (Manual) 4 Basophils % 0.6 0.7 Nucleated Red Blood Cells % 0.0 0.0 Immature Granulocytes # 0.030 0.040 H Neutrophils # 1.7 2.1 Neutrophils # (Manual) 2.3 Band Neutrophils # 0.1 Lymphocytes (Manual) 0.4 L Lymphocytes # 0.8 1.4 Monocytes # 0.7 0.9 Monocytes # (Manual) 0.4 Eosinophils # 0.1 0.1 Basophils # 0.0 0.0 Nucleated Red Blood Cells # 0.0 0.0 Pathologist Review (Hematology) Platelet Estimate SIG DECREASED Polychromasia 3+ Poikilocytosis 2+ Anisocytosis 1+ Macrocytosis 1+ Target Cells 1+ Ovalocytes 1+ Echinocytes 1+ Prothrombin Time 27.8 H Prothrombin Time Ratio 2.2 INR International Normalized Ratio 2.59 Activated Partial Thromboplast Time 43.1 H Thrombin Time 16.6 Path Consult Signing Pathologist DIANE ZARATE MD Sodium Level 134 L 135 Potassium Level 3.9 4.3 Chloride Level 98 103 Carbon Dioxide Level 24 25 Anion Gap 12 7 Blood Urea Nitrogen 15 18 Creatinine 0.43 L 0.49 Est Glomerular Filtrat Rate mL/min > 60 > 60 Glucose Level 84 88 Calcium Level 7.8 L 8.0 L Magnesium Level 1.7 Total Bilirubin 8.3 H Direct Bilirubin 1.60 H Indirect Bilirubin 6.7 H Aspartate Amino Transf (AST/SGOT) 78 H Alanine Aminotransferase (ALT/SGPT) 54 Alkaline Phosphatase 98 Total Protein 5.3 L Albumin 2.0 L Globulin 3.30 H Albumin/Globulin Ratio 0.60 Medications Medication Current Medications IV Flush (NS 3 ml) 3 ml PER PROTOCOL IV Last administered on 07/26/18 20:08; Admin Dose 3 ML; Start 07/04/18 at 18:30 Ondansetron HCl (Zofran Inj) 4 mg Q6H PRN IV NAUSEA/VOMITING Last administered on 07/27/18 09:36; Admin Dose 4 MG; Start 07/04/18 at 18:30 Docusate Sodium (Colace) 100 mg Q12H PRN PO .CONSTIPATION; Start 07/04/18 at 18:30 Albuterol (Proventil 0.083% (Neb)) 2.5 mg Q4H RESP THERAPY PRN HHN SHORTNESS OF BREATH; Start 07/04/18 at 18:30 Metoclopramide HCl (Reglan) 5 mg Q6H PRN IV NAUSEA Last administered on 07/28/18 08:29; Admin Dose 5 MG; Start 07/05/18 at 10:00 Midodrine (Proamatine) 10 mg TID PO Last administered on 07/28/18 08:28; Admin Dose 10 MG; Start 07/06/18 at 09:00 Albuterol (Ventolin Hfa) 2 puff Q4 INH Last administered on 07/28/18 08:29; Admin Dose 2 PUFF; Start 07/06/18 at 04:30 Ondansetron HCl (Zofran Odt) 4 mg Q6H PRN ODT NAUSEA AND/OR VOMITING Last administered on 07/26/18 20:21; Admin Dose 4 MG; Start 07/06/18 at 04:00 Pantoprazole (Protonix Tab) 40 mg BID@0600,1800 PO Last administered on 07/28/18 05:48; Admin Dose 40 MG; Start 07/06/18 at 06:00 Rifaximin (Xifaxan) 200 mg TID PO Last administered on 07/28/18 08:28; Admin Dose 200 MG; Start 07/09/18 at 21:00 Acetaminophen/ Hydrocodone Bitart ([place] (5/325)) 1 tab Q6H PRN PO MODERATE PAIN LEVEL 4-6 Last administered on 07/28/18 08:29; Admin Dose 1 TAB; Start 07/14/18 at 17:30 Sodium Hypochlorite ([place]akin'S (Dilute )) 1 applic DAILY IRR Last administered on 07/25/18 08:27; Admin Dose 1 APPLIC; Start 07/15/18 at 23:45 Simethicone (Mylicon) 80 mg Q6H PRN PO DISTENSION/GAS/BLOATING Last administered on 07/28/18 08:28; Admin Dose 80 MG; Start 07/16/18 at 15:30 Lactulose (Enulose) 10 gm DAILY PO Last administered on 07/28/18 08:28; Admin Dose 10 GM; Start 07/19/18 at 09:00 Spironolactone (Aldactone) 25 mg BID DIURETICS PO Last administered on 07/28/18 05:45; Admin Dose 25 MG; Start 07/19/18 at 13:00 Vancomycin HCl (Vancomycin Oral Syringe) 125 mg Q6 PO Last administered on 07/28/18 05:45; Admin Dose 125 MG; Start 07/20/18 at 18:00 Diphenhydramine HCl (Benadryl) 25 mg Q8H PRN IV PRURITUS/ITCHING Last administered on 07/20/18 20:21; Admin Dose 25 MG; Start 07/20/18 at 18:30 Morphine Sulfate (morphine) 6 mg Q4H PRN PO SEVERE PAIN LEVEL 7-10 Last administered on 07/28/18 05:52; Admin Dose 6 MG; Start 07/20/18 at 23:30 Ciprofloxacin (Cipro) 500 mg BID@,18 PO Last administered on 07/28/18 05:45; Admin Dose 500 MG; Start 07/21/18 at 18:00 Doxycycline Hyclate (Vibramycin) 100 mg BID PO Last administered on 07/28/18 08:28; Admin Dose 100 MG; Start 07/21/18 at 21:00 Trazodone HCl (Desyrel) 50 mg HS PRN PO insomnia Last administered on 07/26/18 23:53; Admin Dose 50 MG; Start 07/21/18 at 23:30 Nystatin (Nystatin Powder) 1 applic BID TOP Last administered on 07/28/18 08:3 1; Admin Dose 1 APPLIC; Start 07/25/18 at 21:00 Nystatin (Nystatin Oint) 1 applic TID TOP Last administered on 07/28/18 08:31; Admin Dose 1 APPLIC; Start 07/27/18 at 21:00 Miconazole (Monistat-3) 1 supp HS VAG Last administered on 07/27/18 22:33; Admin Dose 1 SUPP; Start 07/27/18 at 21:00; Stop 07/29/18 at 21:01 LOUIE RUIZ MD Jul 28, 2018 09:04
[2018-07-28] MEDS: ONDANSETRON 4 MG INJ IV PRN (12:12)
[2018-07-28 14:00] VITALS: BP 100/51; PULSE 62; RESP 18
--- NOTE | 2018-07-28 14:49 | CONS ---
Assessment/Plan Assessment/Plan Hospital Course (Demo Recall) ID PROGRESS NOTE CURRENT ABX: DAY # => Doxycycline IV + CIPRO + Vanco Liq PO + Rifaximin 07/28/[id number] Hospital Course * 48 yo female with cirrhosis, sepsis with bacteremia, C Diff colitis and large foot wound 24H INTERVAL SUMMARY * POD#1 07/27/18-> s/p LEFT FOOT revision surgery w/application of skin graft last night ~1999 * She reports worse pain in left foot than prior surgery; yet is coping well * Left foot ACEI wrap dressing intact -- toes are visible without edema, no infection noted * No fevers, VSS, WBC stable MICRO/OTHER * 07/18/2018 LEFT FOOT WOUND CX: TISSUE (BIOPSY) CULTURE Final Organism 1 K.PNEUMONIAE SSP PNEUMONIAE QUANTITY SCANT GROWTH Organism 2 COAGULASE NEGATIVE STAPH QUANTITY SCANT GROWTH K PNE SPP COAG NEG M.I.C. RX M.I.C. RX --------- --- --------- --- CEFAZOLIN I S CEFOTAXIME S CIPROFLOXACIN <=0.25 S <=0.5 S CLINDAMYCIN <=0.25 S DOXYCYCLINE S ERYTHROMYCIN >=8 R GENTAMICIN <=1 S LEVOFLOXACIN <=0.12 S 0.25 S OXACILLIN <=0.25 S PENICILLIN-G R RIFAMPIN <=0.5 S VANCOMYCIN <=0.5 S TOBRAMYCIN <=1 S TRIMETHOPRIM/SULFAMETHOXAZOLE <=20 S <=10 S * 07/15/18 Wound Cx: WOUND CULTURE Final Organism 1 K.PNEUMONIAE SSP PNEUMONIAE QUANTITY ISOLATED FROM BROTH ONLY * 07/15/18 PARA (-) * 07/08/18 BCx (-) * 07/07/18 (+)C.Diff * 07/06/18 Urine (-) * 07/04/18 BCx (+) GNR BLOOD CULTURE Final Organism 1 K.PNEUMONIAE SSP PNEUMONIAE K PNE SPP M.I.C. RX --------- --- CEFAZOLIN I CEFOTAXIME S CIPROFLOXACIN <=0.25 S GENTAMICIN <=1 S LEVOFLOXACIN <=0.12 S TOBRAMYCIN <=1 S TRIMETHOPRIM/SULFAMETHOXAZOLE <=20 S PHYSICAL EXAMINATION: GENERAL: Afebrile, VSS --NAD HEENT: AT, NC, anicteric NECK: Supple, trach midline CHEST: Equal chest rise bilaterally, without dyspnea on observation HEART: Pulse RRR ABDOMEN: Distended EXTREMITIES: Warm, dry - LLEXT SHIRLEY wrapped SKIN: No rash, no diaphoresis ID ASSESSMENT 48 yo F admit with: 1. GNR Sepsis on admission w/lactic acidosis + BCx (+)GNR Kleb Pneumoniae due to #2 * Leukocytosis due to C.Diff recurrence 2. Acute cellulitis LLEXT w/ left foot wound == >NO OSTEOMYELITIS * POD#1 07/27/18-> s/p LEFT FOOT revision surgery w/application of skin graft last night ~1999 * s/p I&D 07/18/28 with wound vac * 07/18/2018 LEFT FOOT WOUND CX: TISSUE (BIOPSY) CULTURE Final Organism 1 K.PNEUMONIAE SSP PNEUMONIAE QUANTITY SCANT GROWTH Organism 2 COAGULASE NEGATIVE STAPH QUANTITY SCANT GROWTH 3. ETOH Cirrhosis with persistent ascites and encephalopathy - improved w/lactulose * Status post paracentesis in the ER * Patient is on the transplant list 4. Recurrent C.Diff colitis 5. Oliguric acute kidney injury = improved (-)MRSA Nares ABX ALLERGIES: KNDA INVASIVES: PIV CURRENT ABX: DAY # => Doxycycline IV + CIPRO + Vanco Liq PO + Rifaximin ID RECOMMENDATIONS/PLAN: 1. Continue current ABX until infection resolves -- anticipate 21-28 days course 2. Avoid renal toxic ABX 3. Await DPM post op 07/27/18 recommendations . Consultation Date/Type/Reason Admit Date/Time Jul 04, 2018 at 14:22 Initial Consult Date 07/07/18 Requesting Provider: ANA SPICER Date/Time of Note DATE: 07/28/18 TIME: 14:44 Exam/Review of Systems Exam Vitals Vital Signs Date Temp Pulse Resp B/P (MAP) Pulse Ox O2 O2 Flow FiO2 Time Delivery Rate 07/28/18 97.8 56 20 91/50 (64) 96 08:00 07/27/18 Nasal 2.0 21:06 Cannula Intake and Output 07/27/18 07/27/18 07/28/18 1515:00 23:00 07:00 IntakeIntake Total 150 ml OutputOutput Total 30 ml BalanceBalance 120 ml Results Result Diagram: 07/28/18 0533 07/28/18 0533 Results 24hrs Laboratory Tests Test 07/28/18 05:33 White Blood Count 4.6 #L Red Blood Count 2.39 L Hemoglobin 8.0 L Hematocrit 25.6 L Mean Corpuscular Volume 107.1 H Mean Corpuscular Hemoglobin 33.5 H Mean Corpuscular Hemoglobin Concent 31.3 L Red Cell Distribution Width 18.5 H Platelet Count 41 L Mean Platelet Volume 10.2 Immature Granulocytes % 0.900 H Neutrophils % 44.7 Lymphocytes % 30.8 Monocytes % 20.5 H Eosinophils % 2.4 Basophils % 0.7 Nucleated Red Blood Cells % 0.0 Immature Granulocytes # 0.040 H Neutrophils # 2.1 Lymphocytes # 1.4 Monocytes # 0.9 Eosinophils # 0.1 Basophils # 0.0 Nucleated Red Blood Cells # 0.0 Sodium Level 135 Potassium Level 4.3 Chloride Level 103 Carbon Dioxide Level 25 Anion Gap 7 Blood Urea Nitrogen 18 Creatinine 0.49 Est Glomerular Filtrat Rate mL/min > 60 Glucose Level 88 Calcium Level 8.0 L Magnesium Level 1.7 Total Bilirubin 8.3 H Direct Bilirubin 1.60 H Indirect Bilirubin 6.7 H Aspartate Amino Transf (AST/SGOT) 78 H Alanine Aminotransferase (ALT/SGPT) 54 Alkaline Phosphatase 98 Total Protein 5.3 L Albumin 2.0 L Globulin 3.30 H Albumin/Globulin Ratio 0.60 Medications Medication Current Medications IV Flush (NS 3 ml) 3 ml PER PROTOCOL IV Last administered on 07/26/18at 20:08; Admin Dose 3 ML; Start 07/04/18 at 18:30 Ondansetron HCl (Zofran Inj) 4 mg Q6H PRN IV NAUSEA/VOMITING Last administered on 07/28/18at 12:12; Admin Dose 4 MG; Start 07/04/18 at 18:30 Docusate Sodium (Colace) 100 mg Q12H PRN PO .CONSTIPATION; Start 07/04/18 at 18:30 Albuterol (Proventil 0.083% (Neb)) 2.5 mg Q4H RESP THERAPY PRN HHN SHORTNESS OF BREATH; Start 07/04/18 at 18:30 Metoclopramide HCl (Reglan) 5 mg Q6H PRN IV NAUSEA Last administered on 07/28/18 08:29; Admin Dose 5 MG; Start 07/05/18 at 10:00 Midodrine (Proamatine) 10 mg TID PO Last administered on 07/28/18 12:12; Admin Dose 10 MG; Start 07/06/18 at 09:00 Albuterol (Ventolin Hfa) 2 puff Q4 INH Last administered on 07/28/18 12:13; Admin Dose 2 PUFF; Start 07/06/18 at 04:30 Ondansetron HCl (Zofran Odt) 4 mg Q6H PRN ODT NAUSEA AND/OR VOMITING Last administered on 07/26/18 20:21; Admin Dose 4 MG; Start 07/06/18 at 04:00 Pantoprazole (Protonix Tab) 40 mg BID@0600,1800 PO Last administered on 07/28/18 05:48; Admin Dose 40 MG; Start 07/06/18 at 06:00 Rifaximin (Xifaxan) 200 mg TID PO Last administered on 07/28/18 12:12; Admin Dose 200 MG; Start 07/09/18 at 21:00 Acetaminophen/ Hydrocodone Bitart ([place] (5/325)) 1 tab Q6H PRN PO MODERATE PAIN LEVEL 4-6 Last administered on 07/28/18 08:29; Admin Dose 1 TAB; Start 07/14/18 at 17:30 Sodium Hypochlorite (Dakin'S (Dilute )) 1 applic DAILY IRR Last administered on 07/25/18 08:27; Admin Dose 1 APPLIC; Start 07/15/18 at 23:45 Simethicone (Mylicon) 80 mg Q6H PRN PO DISTENSION/GAS/BLOATING Last administered on 07/28/18 08:28; Admin Dose 80 MG; Start 07/16/18 at 15:30 Lactulose (Enulose) 10 gm DAILY PO Last administered on 07/28/18 08:28; Admin Dose 10 GM; Start 07/19/18 at 09:00 Spironolactone (Aldactone) 25 mg BID DIURETICS PO Last administered on 07/09 05:45; Admin Dose 25 MG; Start 07/19/18 at 13:00 Vancomycin HCl (Vancomycin Oral Syringe) 125 mg Q6 PO Last administered on 07/28/18 12:12; Admin Dose 125 MG; Start 07/20/18 at 18:00 Diphenhydramine HCl (Benadryl) 25 mg Q8H PRN IV PRURITUS/ITCHING Last administered on 07/20/18 20:21; Admin Dose 25 MG; Start 07/20/18 at 18:30 Morphine Sulfate (morphine) 6 mg Q4H PRN PO SEVERE PAIN LEVEL 7-10 Last administered on 07/28/18 05:52; Admin Dose 6 MG; Start 07/20/18 at 23:30 Ciprofloxacin (Cipro) 500 mg BID@06,18 PO Last administered on 07/28/18 05:45; Admin Dose 500 MG; Start 07/21/18 at 18:00 Doxycycline Hyclate (Vibramycin) 100 mg BID PO Last administered on 07/28/18 08:28; Admin Dose 100 MG; Start 07/21/18 at 21:00 Trazodone HCl (Desyrel) 50 mg HS PRN PO insomnia Last administered on 07/26/18 23:53; Admin Dose 50 MG; Start 07/21/18 at 23:30 Nystatin (Nystatin Powder) 1 applic BID TOP Last administered on 07/28/18 08:31; Admin Dose 1 APPLIC; Start 07/25/18 at 21:00 Nystatin (Nystatin Oint) 1 applic TID TOP Last administered on 07/28/18 12:13; Admin Dose 1 APPLIC; Start 07/27/18 at 21:00 Miconazole (Monistat-3) 1 supp HS VAG Last administered on 07/27/18 22:33; A dmin Dose 1 SUPP; Start 07/27/18 at 21:00; Stop 07/29/18 at 21:01 Hydromorphone HCl (Dilaudid) 0.5 mg Q3H PRN IV SEVERE PAIN LEVEL 7-10; Start 07/28/18 at 13:00 CHRIS BOWEN NP Jul 28, 2018 14:49
[2018-07-28] MEDS: HYDROmorphONE 0.5 MG/0.5 ML SYG IV PRN ×2 (17:05→21:38)
[2018-07-28 19:50] VITALS: BP 94/50; PULSE 88; RESP 17
[2018-07-28] MEDS: ONDANSETRON (ODT) 4 MG TAB ODT PRN (20:41)
[2018-07-28 21:36] VITALS: BP 102/67; PULSE 94; RESP 18
[2018-07-28] MEDS: traZODone 50 MG TAB PO PRN (22:50)
[2018-07-28] MEDS: MICONAZOLE 200 MG VAG SUPP VAG SCH (22:51)
[2018-07-29] MEDS: VANCOMYCIN HCL 250 MG/5ML POSYG PO SCH ×5 (00:12→23:44)
[2018-07-29] MEDS: HYDROmorphONE 0.5 MG/0.5 ML SYG IV PRN ×6 (00:45→23:48)
[2018-07-29] MEDS: ALBUTEROL HFA 8 GM INHALER INH SCH ×6 (00:50→20:39)
[2018-07-29 01:49] VITALS: BP 97/45; RESP 18
[2018-07-29] MEDS: ONDANSETRON (ODT) 4 MG TAB ODT PRN ×3 (04:03→20:39)
[2018-07-29] MEDS: CIPROFLOXACIN 500 MG TAB PO SCH ×2 (05:15→17:28)
[2018-07-29] MEDS: PANTOPRAZOLE (EC) 40 MG TAB PO SCH ×2 (05:15→17:28)
[2018-07-29] MEDS ORDERED: ALBUMIN HUMAN 25% 100 ML IV ONE (05:30)
[2018-07-29] MEDS: SPIRONOLACTONE 25 MG TAB PO SCH ×2 (05:44→17:28)
[2018-07-29 07:01] VITALS: BP 102/56; PULSE 94
[2018-07-29] MEDS: RIFAXIMIN 200 MG TAB PO SCH ×3 (08:27→20:37)
[2018-07-29] MEDS: LACTULOSE 30ML CUP PO SCH (08:27)
[2018-07-29] MEDS: MIDODRINE 5 MG TAB PO SCH ×3 (08:27→20:37)
[2018-07-29] MEDS: DOXYCYCLINE 100 MG TAB PO SCH ×2 (08:27→20:37)
[2018-07-29] MEDS: NYSTATIN 15 GM OINT TOP SCH ×3 (08:28→20:47)
[2018-07-29] MEDS: NYSTATIN 30 GM POWDER BTL TOP SCH ×2 (08:29→20:46)
[2018-07-29 08:55] VITALS: BP 99/49; PULSE 92; RESP 18
[2018-07-29] MEDS: SODIUM HYPOCHLORITE (1/40) 1 APPLIC BTL IRR SCH (09:00)
[2018-07-29] MEDS ORDERED: LIDOCAINE 1% (MPF) 5 ML VIAL ONE (11:43)
--- NOTE | 2018-07-29 12:53 | CONS ---
Assessment/Plan Assessment/Plan Hospital Course (Demo Recall) ID PROGRESS NOTE 07/29/18 0455 07/29/18 0455 Hospital Course * 48 yo female with cirrhosis, sepsis with bacteremia, C Diff colitis and large foot wound * s/p Paracentesis today ~1100: 5000 cc of clear yellow fluid was obtained. The fluid was not sent to the lab for further analysis. * POD#2 07/27/18-> s/p LEFT FOOT revision surgery w/application of skin graft last night ~1999 * She reports worse pain in left foot than prior surgery; yet is coping well * Left foot ACEI wrap dressing intact -- toes are visible without edema, no infection noted * No fevers, VSS, WBC stable 24H INTERVAL SUMMARY * Feeling well post paracentesis today, no fevers, VSS, foot is painful post- operatively -- she is coping well. MICRO/OTHER * 07/18/2018 LEFT FOOT WOUND CX: TISSUE (BIOPSY) CULTURE Final Organism 1 K.PNEUMONIAE SSP PNEUMONIAE QUANTITY SCANT GROWTH Organism 2 COAGULASE NEGATIVE STAPH QUANTITY SCANT GROWTH K PNE SPP COAG NEG M.I.C. RX M.I.C. RX --------- --- --------- --- CEFAZOLIN I S CEFOTAXIME S CIPROFLOXACIN <=0.25 S <=0.5 S CLINDAMYCIN <=0.25 S DOXYCYCLINE S ERYTHROMYCIN >=8 R GENTAMICIN <=1 S LEVOFLOXACIN <=0.12 S 0.25 S OXACILLIN <=0.25 S PENICILLIN-G R RIFAMPIN <=0.5 S VANCOMYCIN <=0.5 S TOBRAMYCIN <=1 S TRIMETHOPRIM/SULFAMETHOXAZOLE <=20 S <=10 S * 07/15/18 Wound Cx: WOUND CULTURE Final Organism 1 K.PNEUMONIAE SSP PNEUMONIAE QUANTITY ISOLATED FROM BROTH ONLY * 07/15/18 PARA (-) * 07/08/18 BCx (-) * 07/07/18 (+)C.Diff * 07/06/18 Urine (-) * 07/04/18 BCx (+) GNR BLOOD CULTURE Final Organism 1 K.PNEUMONIAE SSP PNEUMONIAE K PNE SPP M.I.C. RX --------- --- CEFAZOLIN I CEFOTAXIME S CIPROFLOXACIN <=0.25 S GENTAMICIN <=1 S LEVOFLOXACIN <=0.12 S TOBRAMYCIN <=1 S TRIMETHOPRIM/SULFAMETHOXAZOLE <=20 S PHYSICAL EXAMINATION: GENERAL: Afebrile, VSS --NAD HEENT: AT, NC, anicteric NECK: Supple, trach midline CHEST: Equal chest rise bilaterally, without dyspnea on observation HEART: Pulse RRR ABDOMEN: Distended EXTREMITIES: Warm, dry - LLEXT SHIRLEY wrapped SKIN: No rash, no diaphoresis ID ASSESSMENT 48 yo F admit with: 1. GNR Sepsis on admission w/lactic acidosis + BCx (+)GNR Kleb Pneumoniae due to #2 * Leukocytosis due to C.Diff recurrence 2. Acute cellulitis LLEXT w/ left foot wound == >NO OSTEOMYELITIS * POD#1 07/27/18-> s/p LEFT FOOT revision surgery w/application of skin graft last night ~1999 * s/p I&D 07/18/28 with wound vac * 07/18/2018 LEFT FOOT WOUND CX: TISSUE (BIOPSY) CULTURE Final Organism 1 K.PNEUMONIAE SSP PNEUMONIAE QUANTITY SCANT GROWTH Organism 2 COAGULASE NEGATIVE STAPH QUANTITY SCANT GROWTH 3. 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 Recurrent C.Diff colitis 5. Oliguric acute kidney injury = improved (-)MRSA Nares ABX ALLERGIES: KNDA INVASIVES: PIV CURRENT ABX: DAY # => Doxycycline IV + CIPRO + Vanco Liq PO + Rifaximin ID RECOMMENDATIONS/PLAN: 1. Continue current ABX until infection resolves -- anticipate 21-28 days course 2. Avoid renal toxic ABX 3. Await DPM post op 07/27/18 recommendations . Consultation Date/Type/Reason Admit Date/Time Jul 04, 2018 at 14:22 Initial Consult Date 07/07/18 Requesting Provider: ANA SPICER Date/Time of Note DATE: 07/29/18 TIME: 12:49 Exam/Review of Systems Exam Vitals Vital Signs Date Temp Pulse Resp B/P (MAP) Pulse Ox O2 O2 Flow FiO2 Time Delivery Rate 07/29/18 98.6 92 18 99/49 (66) 95 08:55 07/27/18 Nasal 2.0 21:06 Cannula Intake and Output 07/28/18 07/28/18 07/29/18 1515:00 23:00 07:00 IntakeIntake Total 200 ml 350 ml 100 ml OutputOutput Total 50 ml 10 ml BalanceBalance 200 ml 300 ml 90 ml Results Result Diagram: 07/29/18 0455 07/29/18 0455 Results 24hrs Laboratory Tests Test 07/29/18 04:55 White Blood Count 4.0 L Red Blood Count 2.27 L Hemoglobin 7.6 L Hematocrit 24.0 L Mean Corpuscular Volume 105.7 H Mean Corpuscular Hemoglobin 33.5 H Mean Corpuscular Hemoglobin Concent 31.7 L Red Cell Distribution Width 17.7 H Platelet Count 39 L Mean Platelet Volume 10.7 H Immature Granulocytes % 0.500 H Neutrophils % 49.7 Lymphocytes % 26.3 Monocytes % 21.0 H Eosinophils % 2.0 Basophils % 0.5 Nucleated Red Blood Cells % 0.0 Immature Granulocytes # 0.020 Neutrophils # 2.0 Lymphocytes # 1.0 Monocytes # 0.8 Eosinophils # 0.1 Basophils # 0.0 Nucleated Red Blood Cells # 0.0 Sodium Level 134 L Potassium Level 3.9 Chloride Level 103 Carbon Dioxide Level 26 Anion Gap 5 Blood Urea Nitrogen 15 Creatinine 0.55 Est Glomerular Filtrat Rate mL/min > 60 Glucose Level 96 Calcium Level 7.8 L Magnesium Level 1.7 Total Bilirubin 5.6 #H Direct Bilirubin 0.70 #H Indirect Bilirubin 4.9 H Aspartate Amino Transf (AST/SGOT) 66 H Alanine Aminotransferase (ALT/SGPT) 52 Alkaline Phosphatase 127 H Total Protein 5.0 L Albumin 1.9 L Globulin 3.10 Albumin/Globulin Ratio 0.61 Medications Medication Current Medications IV Flush (NS 3 ml) 3 ml PER PROTOCOL IV Last administered on 07/26/18 20:08; Admin Dose 3 ML; Start 07/04/18 at 18:30 Ondansetron HCl (Zofran Inj) 4 mg Q6H PRN IV NAUSEA/VOMITING Last administered on 07/28/18 12:12; Admin Dose 4 MG; Start 07/04/18 at 18:30 Docusate Sodium (Colace) 100 mg Q12H PRN PO .CONSTIPATION; Start 07/04/18 at 18:30 Albuterol (Proventil 0.083% (Neb)) 2.5 mg Q4H RESP THERAPY PRN HHN SHORTNESS OF BREATH; Start 07/04/18 at 18:30 Metoclopramide HCl (Reglan) 5 mg Q6H PRN IV NAUSEA Last administered on 07/28/18 17:04; Admin Dose 5 MG; Start 07/05/18 at 10:00 Midodrine (Proamatine) 10 mg TID PO Last administered on 07/29/18 08:27; Admin Dose 10 MG; Start 07/06/18 at 09:00 Albuterol (Ventolin Hfa) 2 puff Q4 INH Last administered on 07/29/18 08:28; Admin Dose 2 PUFF; Start 07/06/18 at 04:30 Ondansetron HCl (Zofran Odt) 4 mg Q6H PRN ODT NAUSEA AND/OR VOMITING Last administered on 07/29/18 04:03; Admin Dose 4 MG; Start 07/06/18 at 04:00 Pantoprazole (Protonix Tab) 40 mg BID@0600,1800 PO Last administered on 07/29/18 05:15; Admin Dose 40 MG; Start 07/06/18 at 06:00 Rifaximin (Xifaxan) 200 mg TID PO Last administered on 07/29/18 08:27; Admin Dose 200 MG; Start 07/09/18 at 21:00 Acetaminophen/ Hydrocodone Bitart ([place] (5/325)) 1 tab Q6H PRN PO MODERATE PAIN LEVEL 4-6 Last administered on 07/28/18 08:29; Admin Dose 1 TAB; Start 07/14/18 at 17:30 Sodium Hypochlorite ([place]akin'S (Dilute )) 1 applic DAILY IRR Last administered on 07/25/18 08:27; Admin Dose 1 APPLIC; Start 07/15/18 at 23:45 Simethicone (Mylicon) 80 mg Q6H PRN PO DISTENSION/GAS/BLOATING Last admin istered on 07/29/18 04:03; Admin Dose 80 MG; Start 07/16/18 at 15:30 Lactulose (Enulose) 10 gm DAILY PO Last administered on 07/29/18 08:27; Admin Dose 10 GM; Start 07/19/18 at 09:00 Spironolactone (Aldactone) 25 mg BID DIURETICS PO Last administered on 07/28/18 17:04; Admin Dose 25 MG; Start 07/19/18 at 13:00 Vancomycin HCl (Vancomycin Oral Syringe) 125 mg Q6 PO Last administered on 07/29/18 06:04; Admin Dose 125 MG; Start 07/20/18 at 18:00 Diphenhydramine HCl (Benadryl) 25 mg Q8H PRN IV PRURITUS/ITCHING Last administered on 07/20/18 20:21; Admin Dose 25 MG; Start 07/20/18 at 18:30 Morphine Sulfate (morphine) 6 mg Q4H PRN PO SEVERE PAIN LEVEL 7-10 Last administered on 07/28/18 05:52; Admin Dose 6 MG; Start 07/20/18 at 23:30 Ciprofloxacin (Cipro) 500 mg BID@06,18 PO Last administered on 07/29/18 05:15; Admin Dose 500 MG; Start 07/21/18 at 18:00 Doxycycline Hyclate (Vibramycin) 100 mg BID PO Last administered on 07/29/18 08:27; Admin Dose 100 MG; Start 07/21/18 at 21:00 Trazodone HCl (Desyrel) 50 mg HS PRN PO insomnia Last administered on 07/28/18 22:50; Admin Dose 50 MG; Start 07/21/18 at 23:30 Nystatin (Nystatin Powder) 1 applic BID TOP Last administered on 07/29/18 08:29; Admin Dose 1 APPLIC; Start 07/25/18 at 21:00 Nystatin (Nystatin Oint) 1 applic TID TOP Last administered on 07/29/18 08:28; Admin Dose 1 APPLIC; Start 2/20/19 at 21:00 Miconazole (Monistat-3) 1 supp HS VAG Last administered on 07/28/18at 22:51; Admin Dose 1 SUPP; Start 07/27/18 at 21:00; Stop 07/29/18 at 21:01 Hydromorphone HCl (Dilaudid) 0.5 mg Q3H PRN IV SEVERE PAIN LEVEL 7-10 Last administered on 07/29/18at 07:02; Admin Dose 0.5 MG; Start 07/28/18 at 13:00 CHRIS BOWEN NP Jul 29, 2018 12:53
[2018-07-29 14:20] VITALS: BP 88/43; PULSE 86; RESP 18
--- NOTE | 2018-07-29 15:58 | PN ---
Date/Time of Note Date/Time of Note DATE: 07/29/18 TIME: 15:55 Assessment/Plan VTE Prophylaxis [place] [facility] [place]: 5 [place] applied [place] [facility] [place] SCD contraindicated: other Pharmacological prophylaxis: NA/contraindicated Pharm contraindication: liver dx, thrombocytopenia Lines/Catheters IV Catheter Type (from [facility]): Mid Line Urinary Cath still in place: No Assessment/Plan Assessment/Plan 1. Left foot wound s/p debridement with wound VAC- stable - s/p skin allograft and wound vac placement 07/27/18 - MRI foot shows no evidence of OM - Podiatry on board and appreciate recommendations. continue wound care, IV antibiotics and wound vac - Continue current antibiotics and pain control 2. SBP with klebsiella bacteremia: - Continue Abx course per ID 3. Cirrhosis with ascites - Status post paracentesis x3 - 5L removed today and will give albumin given low BP - Continue Aldactone - Continue rifaximin/lactulose 4. C Diff diarrhea - s/p PO vanco course - resolving 5. Acute kidney injury likely secondary to hemodynamics and intravascular volume depletion-resolved - Nephrology consultation appreciated 6. Anemia of chronic disease - stable 7. Disposition - continue awaiting placement Result Diagram: 07/29/18 0455 07/29/18 0455 Results 24hrs Laboratory Tests Test 07/29/18 04:55 White Blood Count 4.0 L Red Blood Count 2.27 L Hemoglobin 7.6 L Hematocrit 24.0 L Mean Corpuscular Volume 105.7 H Mean Corpuscular Hemoglobin 33.5 H Mean Corpuscular Hemoglobin Concent 31.7 L Red Cell Distribution Width 17.7 H Platelet Count 39 L Mean Platelet Volume 10.7 H Immature Granulocytes % 0.500 H Neutrophils % 49.7 Lymphocytes % 26.3 Monocytes % 21.0 H Eosinophils % 2.0 Basophils % 0.5 Nucleated Red Blood Cells % 0.0 Immature Granulocytes # 0.020 Neutrophils # 2.0 Lymphocytes # 1.0 Monocytes # 0.8 Eosinophils # 0.1 Basophils # 0.0 Nucleated Red Blood Cells # 0.0 Sodium Level 134 L Potassium Level 3.9 Chloride Level 103 Carbon Dioxide Level 26 Anion Gap 5 Blood Urea Nitrogen 15 Creatinine 0.55 Est Glomerular Filtrat Rate mL/min > 60 Glucose Level 96 Calcium Level 7.8 L Magnesium Level 1.7 Total Bilirubin 5.6 #H Direct Bilirubin 0.70 #H Indirect Bilirubin 4.9 H Aspartate Amino Transf (AST/SGOT) 66 H Alanine Aminotransferase (ALT/SGPT) 52 Alkaline Phosphatase 127 H Total Protein 5.0 L Albumin 1.9 L Globulin 3.10 Albumin/Globulin Ratio 0.61 Subjective 24 Hr Interval Summary Free Text/Dictation Patient doing well and feeling better after paracentesis but still with pain in left ankle after dressing change. Exam/Review of Systems Exam Vitals Vital Signs Date Temp Pulse Resp B/P (MAP) Pulse Ox O2 O2 Flow FiO2 Time Delivery Rate 07/29/18 98.6 92 18 99/49 (66) 95 08:55 07/27/18 Nasal 2.0 21:06 Cannula Intake and Output 07/28/18 07/28/18 07/29/18 1414:59 22:59 06:59 IntakeIntake Total 200 ml 350 ml OutputOutput Total 50 ml BalanceBalance 200 ml 300 ml Exam General: Patient is a pleasant female, currently lying in bed. HEENT: scleral icterus Neck: Supple Chest: Nontender Lungs: Clear to auscultation bilaterally, diminished. no wheezing Heart: Normal S1-S2, Regular rate and rhythm, no murmurs Abdomen: Soft, mildly tender, distended. bowel sounds are present. Extremities: Normal to inspection, no edema no cyanosis Results Results 24hrs Laboratory Tests Test 07/29/18 04:55 White Blood Count 4.0 L Red Blood Count 2.27 L Hemoglobin 7.6 L Hematocrit 24.0 L Mean Corpuscular Volume 105.7 H Mean Corpuscular Hemoglobin 33.5 H Mean Corpuscular Hemoglobin Concent 31.7 L Red Cell Distribution Width 17.7 H Platelet Count 39 L Mean Platelet Volume 10.7 H Immature Granulocytes % 0.500 H Neutrophils % 49.7 Lymphocytes % 26.3 Monocytes % 21.0 H Eosinophils % 2.0 Basophils % 0.5 Nucleated Red Blood Cells % 0.0 Immature Granulocytes # 0.020 Neutrophils # 2.0 Lymphocytes # 1.0 Monocytes # 0.8 Eosinophils # 0.1 Basophils # 0.0 Nucleated Red Blood Cells # 0.0 Sodium Level 134 L Potassium Level 3.9 Chloride Level 103 Carbon Dioxide Level 26 Anion Gap 5 Blood Urea Nitrogen 15 Creatinine 0.55 Est Glomerular Filtrat Rate mL/min > 60 Glucose Level 96 Calcium Level 7.8 L Magnesium Level 1.7 Total Bilirubin 5.6 #H Direct Bilirubin 0.70 #H Indirect Bilirubin 4.9 H Aspartate Amino Transf (AST/SGOT) 66 H Alanine Aminotransferase (ALT/SGPT) 52 Alkaline Phosphatase 127 H Total Protein 5.0 L Albumin 1.9 L Globulin 3.10 Albumin/Globulin Ratio 0.61 Medications Medication Current Medications IV Flush (NS 3 ml) 3 ml PER PROTOCOL IV Last administered on 07/26/18 20:08; Admin Dose 3 ML; Start 07/04/18 at 18:30 Ondansetron HCl (Zofran Inj) 4 mg Q6H PRN IV NAUSEA/VOMITING Last administered on 07/28/18 12:12; Admin Dose 4 MG; Start 07/04/18 at 18:30 Docusate Sodium (Colace) 100 mg Q12H PRN PO .CONSTIPATION; Start 07/04/18 at 18:30 Albuterol (Proventil 0.083% (Neb)) 2.5 mg Q4H RESP THERAPY PRN HHN SHORTNESS OF BREATH; Start 07/04/18 at 18:30 Metoclopramide HCl (Reglan) 5 mg Q6H PRN IV NAUSEA Last administered on 07/28/18 17:04; Admin Dose 5 MG; Start 07/05/18 at 10:00 Midodrine (Proamatine) 10 mg TID PO Last administered on 07/29/18 12:52; Admin Dose 10 MG; Start 07/06/18 at 09:00 Albuterol (Ventolin Hfa) 2 puff Q4 INH Last administered on 07/29/18 12:49; Admin Dose 2 PUFF; Start 07/06/18 at 04:30 Ondansetron HCl (Zofran Odt) 4 mg Q6H PRN ODT NAUSEA AND/OR VOMITING Last administered on 07/29/18 12:52; Admin Dose 4 MG; Start 07/06/18 at 04:00 Pantoprazole (Protonix Tab) 40 mg BID@0600,1800 PO Last administered on 07/29/18 05:15; Admin Dose 40 MG; Start 07/06/18 at 06:00 Rifaximin (Xifaxan) 200 mg TID PO Last administered on 07/29/18 12:49; Admin Dose 200 MG; Start 07/09/18 at 21:00 Acetaminophen/ Hydrocodone Bitart ([place] (5/325)) 1 tab Q6H PRN PO MODERATE PAIN LEVEL 4-6 Last administered on 07/28/18 08:29; Admin Dose 1 TAB; Start 07/14/18 at 17:30 Sodium Hypochlorite (Dakin'S (Dilute )) 1 applic DAILY IRR Last administered on 07/25/18 08:27; Admin Dose 1 APPLIC; Start 07/15/18 at 23:45 Simethicone (Mylicon) 80 mg Q6H PRN PO DISTENSION/GAS/BLOATING Last ad ministered on 07/29/18 04:03; Admin Dose 80 MG; Start 07/16/18 at 15:30 Lactulose (Enulose) 10 gm DAILY PO Last administered on 07/29/18 08:27; Admin Dose 10 GM; Start 07/19/18 at 09:00 Spironolactone (Aldactone) 25 mg BID DIURETICS PO Last administered on 07/28/18 17:04; Admin Dose 25 MG; Start 07/19/18 at 13:00 Vancomycin HCl (Vancomycin Oral Syringe) 125 mg Q6 PO Last administered on 07/29 12:49; Admin Dose 125 MG; Start 07/20/18 at 18:00 Diphenhydramine HCl (Benadryl) 25 mg Q8H PRN IV PRURITUS/ITCHING Last administered on 07/20/18 20:21; Admin Dose 25 MG; Start 07/20/18 at 18:30 Morphine Sulfate (morphine) 6 mg Q4H PRN PO SEVERE PAIN LEVEL 7-10 Last administered on 07/28/18 05:52; Admin Dose 6 MG; Start 07/20/18 at 23:30 Ciprofloxacin (Cipro) 500 mg BID@,18 PO Last administered on 07/29/18 05:15; Admin Dose 500 MG; Start 07/21/18 at 18:00 Doxycycline Hyclate (Vibramycin) 100 mg BID PO Last administered on 07/29/18 08:27; Admin Dose 100 MG; Start 07/21/18 at 21:00 Trazodone HCl (Desyrel) 50 mg HS PRN PO insomnia Last administered on 07/28/18 22:50; Admin Dose 50 MG; Start 07/21/18 at 23:30 Nystatin (Nystatin Powder) 1 applic BID TOP Last administered on 07/29/18 08:29; Admin Dose 1 APPLIC; Start 07/25/18 at 21:00 Nystatin (Nystatin Oint) 1 applic TID TOP Last administered on 07/29/18 12:50; Admin Dose 1 APPLIC; Start 07/27/18 at 21:00 Miconazole (Monistat-3) 1 supp HS VAG Last administered on 07/28/18at 22:51; Admin Dose 1 SUPP; Start 07/27/18 at 21:00; Stop 07/29/18 at 21:01 Hydromorphone HCl (Dilaudid) 0.5 mg Q3H PRN IV SEVERE PAIN LEVEL 7-10 Last administered on 07/29/18 12:50; Admin Dose 0.5 MG; Start 07/28/18 at 13:00 LOUIE RUIZ MD Jul 29, 2018 15:58
[2018-07-29] MEDS ORDERED: ALBUMIN HUMAN 25% 50 ML IV ONE (16:00)
[2018-07-29 16:15] VITALS: BP 95/46; PULSE 87
[2018-07-29] MEDS: METOCLOPRAMIDE 10 MG INJ IV PRN ×2 (16:22→23:49)
--- NOTE | 2018-07-29 16:31 | PN ---
Date/Time of Note Date/Time of Note DATE: 07/29/18 TIME: 16:31 Assessment/Plan VTE Prophylaxis Risk score (from Nsg)>0 risk: 5 Pharmacological prophylaxis: other Lines/Catheters IV Catheter Type (from Nrsg): Mid Line Urinary Cath still in place: No Assessment/Plan Assessment/Plan 1. Left foot abscess with tissue necrosis, left foot. s/p excisional debridement, skin allograft and application of wound VAC (DOS: 07/27/18) 2. Cellulitis, left lower extremity. 3. Sepsis with Klebsiella pneumoniae bacteremia. 4. Clostridium difficile colitis. 5. Alcoholic liver cirrhosis with recurrent ascites. 6. Anemia and thrombocytopenia. Plan Continue with wound VAC therapy and change dressings every 3 days. Previous cultures showing klebsiel pna and coag staph (-). IntraOp pathology showing necrotic tissue no malignancy. Continue with IV abx as recommended. Offload heels with pillows. 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 She reports that she is on the list for a liver transplant. Recommend patient to have home VAC and continued VAC dressing changes upon discharge. Patient to follow up in [facility] in 1 week from discharge date. Result Diagram: 07/29/18 0455 07/29/18 0455 Results 24hrs Laboratory Tests Test 07/29/18 04:55 White Blood Count 4.0 L Red Blood Count 2.27 L Hemoglobin 7.6 L Hematocrit 24.0 L Mean Corpuscular Volume 105.7 H Mean Corpuscular Hemoglobin 33.5 H Mean Corpuscular Hemoglobin Concent 31.7 L Red Cell Distribution Width 17.7 H Platelet Count 39 L Mean Platelet Volume 10.7 H Immature Granulocytes % 0.500 H Neutrophils % 49.7 Lymphocytes % 26.3 Monocytes % 21.0 H Eosinophils % 2.0 Basophils % 0.5 Nucleated Red Blood Cells % 0.0 Immature Granulocytes # 0.020 Neutrophils # 2.0 Lymphocytes # 1.0 Monocytes # 0.8 Eosinophils # 0.1 Basophils # 0.0 Nucleated Red Blood Cells # 0.0 Sodium Level 134 L Potassium Level 3.9 Chloride Level 103 Carbon Dioxide Level 26 Anion Gap 5 Blood Urea Nitrogen 15 Creatinine 0.55 Est Glomerular Filtrat Rate mL/min > 60 Glucose Level 96 Calcium Level 7.8 L Magnesium Level 1.7 Total Bilirubin 5.6 #H Direct Bilirubin 0.70 #H Indirect Bilirubin 4.9 H Aspartate Amino Transf (AST/SGOT) 66 H Alanine Aminotransferase (ALT/SGPT) 52 Alkaline Phosphatase 127 H Total Protein 5.0 L Albumin 1.9 L Globulin 3.10 Albumin/Globulin Ratio 0.61 Subjective 24 Hr Interval Summary Free Text/Dictation No acute events overnight. Exam/Review of Systems Exam Vitals Vital Signs Date Temp Pulse Resp B/P (MAP) Pulse Ox O2 O2 Flow FiO2 Time Delivery Rate 07/29/18 87 95/46 (62) 16:15 07/29/18 98.6 18 95 08:55 07/27/18 Nasal 2.0 21:06 Cannula Intake and Output 07/28/18 07/28/18 07/29/18 1515:00 23:00 07:00 IntakeIntake Total 200 ml 350 ml 100 ml OutputOutput Total 50 ml 10 ml BalanceBalance 200 ml 300 ml 90 ml Exam wound VAC dressings clean dry and intact with serosanguinous output noted to canister. Vac operating at 125mmHg low continuous therapy Results Results 24hrs Laboratory Tests Test 07/29/18 04:55 White Blood Count 4.0 L Red Blood Count 2.27 L Hemoglobin 7.6 L Hematocrit 24.0 L Mean Corpuscular Volume 105.7 H Mean Corpuscular Hemoglobin 33.5 H Mean Corpuscular Hemoglobin Concent 31.7 L Red Cell Distribution Width 17.7 H Platelet Count 39 L Mean Platelet Volume 10.7 H Immature Granulocytes % 0.500 H Neutrophils % 49.7 Lymphocytes % 26.3 Monocytes % 21.0 H Eosinophils % 2.0 Basophils % 0.5 Nucleated Red Blood Cells % 0.0 Immature Granulocytes # 0.020 Neutrophils # 2.0 Lymphocytes # 1.0 Monocytes # 0.8 Eosinophils # 0.1 Basophils # 0.0 Nucleated Red Blood Cells # 0.0 Sodium Level 134 L Potassium Level 3.9 Chloride Level 103 Carbon Dioxide Level 26 Anion Gap 5 Blood Urea Nitrogen 15 Creatinine 0.55 Est Glomerular Filtrat Rate mL/min > 60 Glucose Level 96 Calcium Level 7.8 L Magnesium Level 1.7 Total Bilirubin 5.6 #H Direct Bilirubin 0.70 #H Indirect Bilirubin 4.9 H Aspartate Amino Transf (AST/SGOT) 66 H Alanine Aminotransferase (ALT/SGPT) 52 Alkaline Phosphatase 127 H Total Protein 5.0 L Albumin 1.9 L Globulin 3.10 Albumin/Globulin Ratio 0.61 Medications Medication Current Medications IV Flush (NS 3 ml) 3 ml PER PROTOCOL IV Last administered on 07/26/18 20:08; Admin Dose 3 ML; Start 07/04/18 at 18:30 Ondansetron HCl (Zofran Inj) 4 mg Q6H PRN IV NAUSEA/VOMITING Last administered on 07/28/18 12:12; Admin Dose 4 MG; Start 07/04/18 at 18:30 Docusate Sodium (Colace) 100 mg Q12H PRN PO .CONSTIPATION; Start 07/04/18 at 18:30 Albuterol (Proventil 0.083% (Neb)) 2.5 mg Q4H RESP THERAPY PRN HHN SHORTNESS OF BREATH; Start 07/04/18 at 18:30 Metoclopramide HCl (Reglan) 5 mg Q6H PRN IV NAUSEA Last administered on 07/29/18 16:22; Admin Dose 5 MG; Start 07/05/18 at 10:00 Midodrine (Proamatine) 10 mg TID PO Last administered on 07/29/18 12:52; Admin Dose 10 MG; Start 07/06/18 at 09:00 Albuterol (Ventolin Hfa) 2 puff Q4 INH Last administered on 07/29/18 12:49; Admin Dose 2 PUFF; Start 07/06/18 at 04:30 Ondansetron HCl (Zofran Odt) 4 mg Q6H PRN ODT NAUSEA AND/OR VOMITING Last administered on 07/29/18 12:52; Admin Dose 4 MG; Start 07/06/18 at 04:00 Pantoprazole (Protonix Tab) 40 mg BID@0600,1800 PO Last administered on 07/29/18 05:15; Admin Dose 40 MG; Start 07/06/18 at 06:00 Rifaximin (Xifaxan) 200 mg TID PO Last administered on 07/29/18 12:49; Admin Dose 200 MG; Start 07/09/18 at 21:00 Acetaminophen/ Hydrocodone Bitart ([place] (5/325)) 1 tab Q6H PRN PO MODERATE PAIN LEVEL 4-6 Last administered on 07/28/18 08:29; Admin Dose 1 TAB; Start 07/14/18 at 17:30 Sodium Hypochlorite (Dakin'S (Dilute )) 1 applic DAILY IRR Last administered on 07/25/18 08:27; Admin Dose 1 APPLIC; Start 07/15/18 at 23:45 Simethicone (Mylicon) 80 mg Q6H PRN PO DISTENSION/GAS/BLOATING Last administered on 07/29/18 04:03; Admin Dose 80 MG; Start 07/16/18 at 15:30 Lactulose (Enulose) 10 gm DAILY PO Last administered on 07/29/18 08:27; Admin Dose 10 GM; Start 07/19/18 at 09:00 Spironolactone (Aldactone) 25 mg BID DIURETICS PO Last administered on 07/28/18 17:04; Admin Dose 25 MG; Start 07/19/18 at 13:00 Vancomycin HCl (Vancomycin Oral Syringe) 125 mg Q6 PO Last administered on 07/29/18 12:49; Admin Dose 125 MG; Start 07/20/18 at 18:00 Diphenhydramine HCl (Benadryl) 25 mg Q8H PRN IV PRURITUS/ITCHING Last administered on 07/20/18 20:21; Admin Dose 25 MG; Start 07/20/18 at 18:30 Morphine Sulfate (morphine) 6 mg Q4H PRN PO SEVERE PAIN LEVEL 7-10 Last administered on 07/28/18 05:52; Admin Dose 6 MG; Start 07/20/18 at 23:30 Ciprofloxacin (Cipro) 500 mg BID@06,18 PO Last administered on 07/29/18 05:15; Admin Dose 500 MG; Start 07/21/18 at 18:00 Doxycycline Hyclate (Vibramycin) 100 mg BID PO Last administered on 07/29/18 08:27; Admin Dose 100 MG; Start 07/21/18 at 21:00 Trazodone HCl (Desyrel) 50 mg HS PRN PO insomnia Last administered on 07/28/18 22:50; Admin Dose 50 MG; Start 07/21/18 at 23:30 Nystatin (Nystatin Powder) 1 applic BID TOP Last administered on 07/29/18 08:29; Admin Dose 1 APPLIC; Start 07/25/18 at 21:00 Nystatin (Nystatin Oint) 1 applic TID TOP Last administered on 07/29/18at 12:50; Admin Dose 1 APPLIC; Start 07/27/18 at 21:00 Miconazole (Monistat-3) 1 supp HS VAG Last administered on 07/28/18at 22:51; Admin Dose 1 SUPP; Start 07/27/18 at 21:00; Stop 07/29/18 at 21:01 Hydromorphone HCl (Dilaudid) 0.5 mg Q3H PRN IV SEVERE PAIN LEVEL 7-10 Last administered on 07/29/18at 16:10; Admin Dose 0.5 MG; Start 07/28/18 at 13:00 JEANINE SAWYER DPM Jul 29, 2018 16:31
[2018-07-29 20:00] VITALS: BP 98/47; PULSE 91; RESP 18
[2018-07-29] MEDS: traZODone 50 MG TAB PO PRN (23:07)
[2018-07-29] MEDS: MICONAZOLE 200 MG VAG SUPP VAG SCH (23:44)
[2018-07-30 02:00] VITALS: BP 105/51; PULSE 93; RESP 18
[2018-07-30] MEDS: HYDROmorphONE 0.5 MG/0.5 ML SYG IV PRN ×2 (02:59→10:56)
[2018-07-30] MEDS: ONDANSETRON (ODT) 4 MG TAB ODT PRN ×3 (02:59→23:40)
[2018-07-30] MEDS: ALBUTEROL HFA 8 GM INHALER INH SCH ×6 (02:59→21:20)
[2018-07-30] MEDS: VANCOMYCIN HCL 250 MG/5ML POSYG PO SCH ×4 (05:38→23:32)
[2018-07-30] MEDS: CIPROFLOXACIN 500 MG TAB PO SCH ×2 (05:39→17:27)
[2018-07-30] MEDS: PANTOPRAZOLE (EC) 40 MG TAB PO SCH ×2 (05:39→17:27)
[2018-07-30] MEDS: SPIRONOLACTONE 25 MG TAB PO SCH ×2 (05:41→17:28)
[2018-07-30] MEDS: HYDROCODONE/APAP (5/325) TAB PO PRN (05:42)
[2018-07-30] MEDS: METOCLOPRAMIDE 10 MG INJ IV PRN ×2 (05:42→18:15)
[2018-07-30 08:00] VITALS: BP 92/51; PULSE 85; RESP 16
[2018-07-30] MEDS: DOXYCYCLINE 100 MG TAB PO SCH ×2 (08:20→20:34)
[2018-07-30] MEDS: MIDODRINE 5 MG TAB PO SCH ×3 (08:20→20:34)
[2018-07-30] MEDS: LACTULOSE 30ML CUP PO SCH (08:20)
[2018-07-30] MEDS: NYSTATIN 15 GM OINT TOP SCH ×3 (08:21→20:35)
[2018-07-30] MEDS: RIFAXIMIN 200 MG TAB PO SCH ×3 (08:21→20:34)
[2018-07-30] MEDS: NYSTATIN 30 GM POWDER BTL TOP SCH ×2 (08:21→20:35)
[2018-07-30] MEDS: SODIUM HYPOCHLORITE (1/40) 1 APPLIC BTL IRR SCH (08:21)
--- NOTE | 2018-07-30 09:48 | PN ---
Date/Time of Note Date/Time of Note DATE: 07/30/18 TIME: 09:48 Assessment/Plan VTE [place]axis [place] [facility] [place]: 5 [place] [facility] [place] SCD contraindicated: other Pharmacological prophylaxis: NA/contraindicated Pharm contraindication: liver dx, thrombocytopenia Lines/Catheters IV [facility]ter Type (from [facility] Mid Line Urinary Cath still in place: No Assessment/Plan Assessment/Plan 1. Left foot wound s/p debridement with wound VAC- stable - s/p skin allograft and wound vac placement 07/27/18 - pain control adjusted for better comfort - MRI foot shows no evidence of OM - Podiatry on board and appreciate recommendations. continue wound care, IV antibiotics and wound vac - Continue current antibiotics 2. SBP with klebsiella bacteremia: - Continue Abx course per ID 3. Cirrhosis with ascites - Status post paracentesis x3 - Continue Aldactone - Continue rifaximin/lactulose 4. Anemia - most likely 2/2 liver dz - Hgb 6.9 this am and will transfuse 1 unit 5. Acute kidney injury likely secondary to hemodynamics and intravascular volume depletion-resolved - Nephrology consultation appreciated 6. Anemia of chronic disease - stable 7. C Diff diarrhea - s/p PO vanco course - resolving 8. Disposition - Hgb low this am and will transfuse 1 PRBC - Pending SNF placement for wound vac and IV antibiotic management Result Diagram: 07/30/186 07/30/186 Results 24hrs Laboratory Tests Test 07/30/18 04:46 White Blood Count 4.7 L Red Blood Count 2.08 L Hemoglobin 7.1 L Hematocrit 22.2 L Mean Corpuscular Volume 106.7 H Mean Corpuscular Hemoglobin 34.1 H Mean Corpuscular Hemoglobin Concent 32.0 Red Cell Distribution Width 17.9 H Platelet Count 35 L Mean Platelet Volume 10.3 Immature Granulocytes % 0.400 Neutrophils % 49.3 Lymphocytes % 29.7 Monocytes % 18.3 H Eosinophils % 1.9 Basophils % 0.4 Nucleated Red Blood Cells % 0.0 Immature Granulocytes # 0.020 Neutrophils # 2.3 Lymphocytes # 1.4 Monocytes # 0.9 Eosinophils # 0.1 Basophils # 0.0 Nucleated Red Blood Cells # 0.0 Sodium Level 132 L Potassium Level 4.0 Chloride Level 102 Carbon Dioxide Level 25 Anion Gap 5 Blood Urea Nitrogen 13 Creatinine 0.48 Est Glomerular Filtrat Rate mL/min > 60 Glucose Level 103 Calcium Level 7.8 L Magnesium Level 1.6 L Total Bilirubin 4.5 H Direct Bilirubin 0.50 #H Indirect Bilirubin 4.0 H Aspartate Amino Transf (AST/SGOT) 51 H Alanine Aminotransferase (ALT/SGPT) 49 Alkaline Phosphatase 143 H Total Protein 5.1 L Albumin 2.0 L Globulin 3.10 Albumin/Globulin Ratio 0.64 Subjective 24 Hr Interval Summary Free Text/Dictation Patient working with PT this am and having difficulty. Patient still complaining of pain in left foot and counseled need to stay off foot. Requesting to meet Dr. Gómez if possible given she missed her outpatient appt with him due to hospital admission. Exam/Review of Systems Exam Vitals Vital Signs Date Temp Pulse Resp B/P (MAP) Pulse Ox O2 O2 Flow FiO2 Time Delivery Rate 07/30/18 98.4 85 16 92/51 (65) 96 Room Air 08:00 07/27/18 2.0 21:06 Intake and Output 07/29/18 07/29/18 07/30/18 1515:00 23:00 07:00 IntakeIntake Total 240 ml 530 ml OutputOutput Total 0 ml 1730 ml BalanceBalance 240 ml 530 ml -1730 ml Exam General: Patient is a pleasant female, currently lying in bed. HEENT: scleral icterus Neck: Supple Chest: Nontender Lungs: Clear to auscultation bilaterally, diminished. no wheezing Heart: Normal S1-S2, Regular rate and rhythm, no murmurs Abdomen: Soft, nontender, distended. bowel sounds are present. no rebound or guarding Extremities: Normal to inspection, no edema no cyanosis Results Results 24hrs Laboratory Tests Test 07/30/18 04:46 White Blood Count 4.7 L Red Blood Count 2.08 L Hemoglobin 7.1 L Hematocrit 22.2 L Mean Corpuscular Volume 106.7 H Mean Corpuscular Hemoglobin 34.1 H Mean Corpuscular Hemoglobin Concent 32.0 Red Cell Distribution Width 17.9 H Platelet Count 35 L Mean Platelet Volume 10.3 Immature Granulocytes % 0.400 Neutrophils % 49.3 Lymphocytes % 29.7 Monocytes % 18.3 H Eosinophils % 1.9 Basophils % 0.4 Nucleated Red Blood Cells % 0.0 Immature Granulocytes # 0.020 Neutrophils # 2.3 Lymphocytes # 1.4 Monocytes # 0.9 Eosinophils # 0.1 Basophils # 0.0 Nucleated Red Blood Cells # 0.0 Sodium Level 132 L Potassium Level 4.0 Chloride Level 102 Carbon Dioxide Level 25 Anion Gap 5 Blood Urea Nitrogen 13 Creatinine 0.48 Est Glomerular Filtrat Rate mL/min > 60 Glucose Level 103 Calcium Level 7.8 L Magnesium Level 1.6 L Total Bilirubin 4.5 H Direct Bilirubin 0.50 #H Indirect Bilirubin 4.0 H Aspartate Amino Transf (AST/SGOT) 51 H Alanine Aminotransferase (ALT/SGPT) 49 Alkaline Phosphatase 143 H Total Protein 5.1 L Albumin 2.0 L Globulin 3.10 Albumin/Globulin Ratio 0.64 Medications Medication Current Medications IV Flush (NS 3 ml) 3 ml PER PROTOCOL IV Last administered on 07/26/18 20:08; Admin Dose 3 ML; Start 07/04/18 at 18:30 Ondansetron HCl (Zofran Inj) 4 mg Q6H PRN IV NAUSEA/VOMITING Last administered on 07/28/18 12:12; Admin Dose 4 MG; Start 07/04/18 at 18:30 Docusate Sodium (Colace) 100 mg Q12H PRN PO .CONSTIPATION; Start 07/04/18 at 18:30 Albuterol (Proventil 0.083% (Neb)) 2.5 mg Q4H RESP THERAPY PRN HHN SHORTNESS OF BREATH; Start 07/04/18 at 18:30 Metoclopramide HCl (Reglan) 5 mg Q6H PRN IV NAUSEA Last administered on 07/30/18 05:42; Admin Dose 5 MG; Start 07/05/18 at 10:00 Midodrine (Proamatine) 10 mg TID PO Last administered on 07/30/18 08:20; Admin Dose 10 MG; Start 07/06/18 at 09:00 Albuterol (Ventolin Hfa) 2 puff Q4 INH Last administered on 07/30/18 08:21; Admin Dose 2 PUFF; Start 07/06/18 at 04:30 Ondansetron HCl (Zofran Odt) 4 mg Q6H PRN ODT NAUSEA AND/OR VOMITING Last administered on 07/30/18 02:59; Admin Dose 4 MG; Start 07/06/18 at 04:00 Pantoprazole (Protonix Tab) 40 mg BID@0600,1800 PO Last administered on 07/30/18 05:39; Admin Dose 40 MG; Start 07/06/18 at 06:00 Rifaximin (Xifaxan) 200 mg TID PO Last administered on 07/30/18 08:21; Admin Dose 200 MG; Start 07/09/18 at 21:00 Acetaminophen/ Hydrocodone Bitart ([place] (5/325)) 1 tab Q6H PRN PO MODERATE PAIN LEVEL 4-6 Last administered on 07/30/18 05:42; Admin Dose 1 TAB; Start 07/14/18 at 17:30 Sodium Hypochlorite (Dakin'S (Dilute )) 1 applic DAILY IRR Last administered on 07/25/18 08:27; Admin Dose 1 APPLIC; Start 07/15/18 at 23:45 Simethicone (Mylicon) 80 mg Q6H PRN PO DISTENSION/GAS/BLOATING Last administered on 07/29/18 04:03; Admin Dose 80 MG; Start 07/16/18 at 15:30 Lactulose (Enulose) 10 gm DAILY PO Last administered on 07/30/18 08:20; Admin Dose 10 GM; Start 07/19/18 at 09:00 Spironolactone (Aldactone) 25 mg BID DIURETICS PO Last administered on 07/30/18 05:41; Admin Dose 25 MG; Start 07/19/18 at 13:00 Vancomycin HCl (Vancomycin Oral Syringe) 125 mg Q6 PO Last administered on 05:38; Admin Dose 125 MG; Start 07/20/18 at 18:00 Diphenhydramine HCl (Benadryl) 25 mg Q8H PRN IV PRURITUS/ITCHING Last administered on 07/20/18 20:21; Admin Dose 25 MG; Start 07/20/18 at 18:30 Morphine Sulfate (morphine) 6 mg Q4H PRN PO SEVERE PAIN LEVEL 7-10 Last administered on 07/28/18 05:52; Admin Dose 6 MG; Start 07/20/18 at 23:30 Ciprofloxacin (Cipro) 500 mg BID@,18 PO Last administered on 07/30/18 05:39; Admin Dose 500 MG; Start 07/21/18 at 18:00 Doxycycline Hyclate (Vibramycin) 100 mg BID PO Last administered on 07/30/18 08:20; Admin Dose 100 MG; Start 07/21/18 at 21:00 Trazodone HCl (Desyrel) 50 mg HS PRN PO insomnia Last administered on 07/29/18 23:07; Admin Dose 50 MG; Start 07/21/18 at 23:30 Nystatin (Nystatin Powder) 1 applic BID TOP Last administered on 07/30/18 08:21; Admin Dose 1 APPLIC; Start 07/25/18 at 21:00 Nystatin (Nystatin Oint) 1 applic TID TOP Last administered on 07/30/18 08:21; Admin Dose 1 APPLIC; Start 07/27/18 at 21:00 Hydromorphone HCl (Dilaudid) 0.5 mg Q3H PRN IV SEVERE PAIN LEVEL 7-10 Last administered on 07/30/18 02:59; Admin Dose 0.5 MG; Start 07/28/18 at 13:00 LOUIE RUIZ MD Jul 30, 2018 09:48
[2018-07-30] MEDS ORDERED: MAGNESIUM SULFATE 2 GM/50 ML 50 ML IVPB ONE (10:00)
[2018-07-30 14:06] VITALS: BP 95/54; PULSE 89; RESP 17
[2018-07-30] MEDS: HYDROmorphONE 1 MG/ML SYG IV PRN ×3 (14:50→23:33)
[2018-07-30 20:00] VITALS: BP 91/53; PULSE 81
[2018-07-30 20:20] VITALS: BP 124/55; PULSE 86
[2018-07-30] MEDS: morphine LIQ (10 MG/5 ML) CUP PO PRN (20:34)
[2018-07-30] MEDS: traZODone 50 MG TAB PO PRN (22:07)
--- NOTE | 2018-07-30 22:44 | CONS ---
Assessment/Plan Assessment/Plan Hospital Course (Demo Recall) ID PROGRESS NOTE Hospital Course * 48 yo female with cirrhosis, sepsis with bacteremia, C Diff colitis and large foot wound * s/p Paracentesis 07/29~1100: 5000 cc of clear yellow fluid was obtained. The fluid was not sent to the lab for further analysis. * POD#3=> 07/27/18-> s/p LEFT FOOT revision surgery w/application of skin graft last night ~2000 24H INTERVAL SUMMARY * She is sleeping w/eyes closed and not disturbed, no fevers, VSS MICRO/OTHER * 07/18/2018 LEFT FOOT WOUND CX: TISSUE (BIOPSY) CULTURE Final Organism 1 K.PNEUMONIAE SSP PNEUMONIAE QUANTITY SCANT GROWTH Organism 2 COAGULASE NEGATIVE STAPH QUANTITY SCANT GROWTH K PNE SPP COAG NEG M.I.C. RX M.I.C. RX --------- --- --------- --- CEFAZOLIN I S CEFOTAXIME S CIPROFLOXACIN <=0.25 S <=0.5 S CLINDAMYCIN <=0.25 S DOXYCYCLINE S ERYTHROMYCIN >=8 R GENTAMICIN <=1 S LEVOFLOXACIN <=0.12 S 0.25 S OXACILLIN <=0.25 S PENICILLIN-G R RIFAMPIN <=0.5 S VANCOMYCIN <=0.5 S TOBRAMYCIN <=1 S TRIMETHOPRIM/SULFAMETHOXAZOLE <=20 S <=10 S * 07/15/18 Wound Cx: WOUND CULTURE Final Organism 1 K.PNEUMONIAE SSP PNEUMONIAE QUANTITY ISOLATED FROM BROTH ONLY * 07/15/18 PARA (-) * 07/08/18 BCx (-) * 07/07/18 (+)C.Diff * 07/06/18 Urine (-) * 07/04/18 BCx (+) GNR BLOOD CULTURE Final Organism 1 K.PNEUMONIAE SSP PNEUMONIAE K PNE SPP M.I.C. RX --------- --- CEFAZOLIN I CEFOTAXIME S CIPROFLOXACIN <=0.25 S GENTAMICIN <=1 S LEVOFLOXACIN <=0.12 S TOBRAMYCIN <=1 S TRIMETHOPRIM/SULFAMETHOXAZOLE <=20 S PHYSICAL EXAMINATION: GENERAL: Afebrile, VSS --NAD HEENT: AT, NC, anicteric NECK: Supple, trach midline CHEST: Equal chest rise bilaterally, without dyspnea on observation HEART: Pulse RRR ABDOMEN: Distended EXTREMITIES: Warm, dry - LLEXT SHIRLEY wrapped SKIN: No rash, no diaphoresis ID ASSESSMENT 48 yo F admit with: 1. GNR Sepsis on admission w/lactic acidosis + BCx (+)GNR Kleb Pneumoniae due to #2 * Leukocytosis due to C.Diff recurrence 2. Acute cellulitis LLEXT w/ left foot wound == >NO OSTEOMYELITIS * POD#3 07/27/18-> s/p LEFT FOOT revision surgery w/application of skin graft last night ~1999 * s/p I&D 07/18/28 with wound vac * 07/18/2018 LEFT FOOT WOUND CX: TISSUE (BIOPSY) CULTURE Final Organism 1 K.PNEUMONIAE SSP PNEUMONIAE Organism 2 COAGULASE NEGATIVE STAPH 3. 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 Recurrent C.Diff colitis 5. Oliguric acute kidney injury = improved (-)MRSA Nares ABX ALLERGIES: KNDA INVASIVES: PIV CURRENT ABX: DAY # => Doxycycline IV + CIPRO + Vanco Liq PO + Rifaximin ID RECOMMENDATIONS/PLAN: 1. Continue current ABX until infection resolves -- anticipate 21-28 days course 2. Avoid renal toxic ABX . Consultation Date/Type/Reason Admit Date/Time Jul 04, 2018 at 14:22 Initial Consult Date 07/07/18 Requesting Provider: ANA SPICER Date/Time of Note DATE: 07/30/18 TIME: 22:41 Exam/Review of Systems Exam Vitals Vital Signs Date Temp Pulse Resp B/P (MAP) Pulse Ox O2 O2 Flow FiO2 Time Delivery Rate 07/30/18 98.3 81 91/53 (86) 100 20:00 07/30/18 17 Room Air 14:06 07/27/18 2.0 21:06 Intake and Output 07/29/18 07/29/18 07/30/18 1515:00 23:00 07:00 IntakeIntake Total 240 ml 530 ml OutputOutput Total 0 ml 1730 ml BalanceBalance 240 ml 530 ml -1730 ml Results Result Diagram: 07/30/18 1130 07/30/18 0446 Results 24hrs Laboratory Tests Test 07/30/18 04:46 07/30/18 11:30 White Blood Count 4.7 L 4.4 L Red Blood Count 2.08 L 2.02 L Hemoglobin 7.1 L 6.9 *L Hematocrit 22.2 L 21.3 L Mean Corpuscular Volume 106.7 H 105.4 H Mean Corpuscular Hemoglobin 34.1 H 34.2 H Mean Corpuscular Hemoglobin Concent 32.0 32.4 Red Cell Distribution Width 17.9 H 17.8 H Platelet Count 35 L 40 L Mean Platelet Volume 10.3 10.9 H Immature Granulocytes % 0.400 0.700 H Neutrophils % 49.3 53.2 Lymphocytes % 29.7 27.6 Monocytes % 18.3 H 16.4 H Eosinophils % 1.9 1.6 Basophils % 0.4 0.5 Nucleated Red Blood Cells % 0.0 0.0 Immature Granulocytes # 0.020 0.030 Neutrophils # 2.3 2.3 Lymphocytes # 1.4 1.2 Monocytes # 0.9 0.7 Eosinophils # 0.1 0.1 Basophils # 0.0 0.0 Nucleated Red Blood Cells # 0.0 0.0 Sodium Level 132 L Potassium Level 4.0 Chloride Level 102 Carbon Dioxide Level 25 Anion Gap 5 Blood Urea Nitrogen 13 Creatinine 0.48 Est Glomerular Filtrat Rate mL/min > 60 Glucose Level 103 Calcium Level 7.8 L Magnesium Level 1.6 L Total Bilirubin 4.5 H Direct Bilirubin 0.50 #H Indirect Bilirubin 4.0 H Aspartate Amino Transf (AST/SGOT) 51 H Alanine Aminotransferase (ALT/SGPT) 49 Alkaline Phosphatase 143 H Total Protein 5.1 L Albumin 2.0 L Globulin 3.10 Albumin/Globulin Ratio 0.64 Medications Medication Current Medications IV Flush (NS 3 ml) 3 ml PER PROTOCOL IV Last administered on 07/26/18 20:08; Admin Dose 3 ML; Start 07/04/18 at 18:30 Ondansetron HCl (Zofran Inj) 4 mg Q6H PRN IV NAUSEA/VOMITING Last administered on 07/28/18 12:12; Admin Dose 4 MG; Start 07/04/18 at 18:30 Docusate Sodium (Colace) 100 mg Q12H PRN PO .CONSTIPATION; Start 07/04/18 at 18:30 Albuterol (Proventil 0.083% (Neb)) 2.5 mg Q4H RESP THERAPY PRN HHN SHORTNESS OF BREATH; Start 07/04/18 at 18:30 Metoclopramide HCl (Reglan) 5 mg Q6H PRN IV NAUSEA Last administered on 07/30/18 18:15; Admin Dose 5 MG; Start 07/05/18 at 10:00 Midodrine (Proamatine) 10 mg TID PO Last administered on 07/30/18 20:34; Admin Dose 10 MG; Start 07/06/18 at 09:00 Albuterol (Ventolin Hfa) 2 puff Q4 INH Last administered on 07/30/18 21:20; Admin Dose 2 PUFF; Start 07/06/18 at 04:30 Ondansetron HCl (Zofran Odt) 4 mg Q6H PRN ODT NAUSEA AND/OR VOMITING Last administered on 07/30/18 10:56; Admin Dose 4 MG; Start 07/06/18 at 04:00 Pantoprazole (Protonix Tab) 40 mg BID@0600,1800 PO Last administered on 07/30/18 17:27; Admin Dose 40 MG; Start 07/06/18 at 06:00 Rifaximin (Xifaxan) 200 mg TID PO Last administered on 07/30/18 20:34; Admin Dose 200 MG; Start 07/09/18 at 21:00 Acetaminophen/ Hydrocodone Bitart ([place] (5/325)) 1 tab Q6H PRN PO MODERATE PAIN LEVEL 4-6 Last administered on 07/30/18 05:42; Admin Dose 1 TAB; Start 07/14/18 at 17:30 Sodium Hypochlorite (Dakin'S (Dilute 1/40)) 1 applic DAILY IRR Last administered on 07/25/18 08:27; Admin Dose 1 APPLIC; Start 07/15/18 at 23:45 Simethicone (Mylicon) 80 mg Q6H PRN PO DISTENSION/GAS/BLOATING Last administered on 07/29/18 04:03; Admin Dose 80 MG; Start 07/16/18 at 15:30 Lactulose (Enulose) 10 gm DAILY PO Last administered on 07/30/18 08:20; Admin Dose 10 GM; Start 07/19/18 at 09:00 Spironolactone (Aldactone) 25 mg BID DIURETICS PO Last administered on 07/30/18 17:28; Admin Dose 25 MG; Start 07/19/18 at 13:00 Vancomycin HCl (Vancomycin Oral Syringe) 125 mg Q6 PO Last administered on 07/30/18 17:27; Admin Dose 125 MG; Start 07/20/18 at 18:00 Diphenhydramine HCl (Benadryl) 25 mg Q8H PRN IV PRURITUS/ITCHING Last administered on 07/20/18 20:21; Admin Dose 25 MG; Start 07/20/18 at 18:30 Morphine Sulfate (morphine) 6 mg Q4H PRN PO SEVERE PAIN LEVEL 7-10 Last administered on 07/30/18 20:34; Admin Dose 6 MG; Start 07/20/18 at 23:30 Ciprofloxacin (Cipro) 500 mg BID@06,18 PO Last administered on 07/30/18 17:27; Admin Dose 500 MG; Start 07/21/18 at 18:00 Doxycycline Hyclate (Vibramycin) 100 mg BID PO Last administered on 07/30/18 20:34; Admin Dose 100 MG; Start 07/21/18 at 21:00 Trazodone HCl (Desyrel) 50 mg HS PRN PO insomnia Last administered on 07/30/18 22:07; Admin Dose 50 MG; Start 07/21/18 at 23:30 Nystatin (Nystatin Powder) 1 applic BID TOP Last administered on 07/30/18 20:35; Admin Dose 1 APPLIC; Start 07/25/18 at 21:00 Nystatin (Nystatin Oint) 1 applic TID TOP Last administered on 07/30/18 20:35; Admin Dose 1 APPLIC; Start 07/27/18 at 21:00 Hydromorphone HCl (Dilaudid) 1 mg Q3H PRN IV SEVERE PAIN LEVEL 7-10 Last administered on 07/30/18at 18:15; Admin Dose 1 MG; Start 07/30/18 at 13:00 CHRIS BOWEN NP Jul 30, 2018 22:44
[2018-07-31] MEDS: ALBUTEROL HFA 8 GM INHALER INH SCH ×6 (00:23→20:38)
[2018-07-31 02:00] VITALS: BP 96/52; PULSE 88; RESP 18
[2018-07-31] MEDS: PANTOPRAZOLE (EC) 40 MG TAB PO SCH ×2 (05:28→17:27)
[2018-07-31] MEDS: CIPROFLOXACIN 500 MG TAB PO SCH ×2 (05:28→17:19)
[2018-07-31] MEDS: SPIRONOLACTONE 25 MG TAB PO SCH ×2 (05:29→17:19)
[2018-07-31] MEDS: VANCOMYCIN HCL 250 MG/5ML POSYG PO SCH ×4 (05:29→23:40)
[2018-07-31] MEDS: HYDROmorphONE 1 MG/ML SYG IV PRN ×6 (06:10→23:40)
[2018-07-31] MEDS: ONDANSETRON (ODT) 4 MG TAB ODT PRN ×3 (06:10→20:37)
[2018-07-31 08:15] VITALS: BP 95/52; PULSE 80; RESP 18
--- NOTE | 2018-07-31 08:49 | PN ---
Date/Time of Note Date/Time of Note DATE: 07/31/18 TIME: 08:49 Assessment/Plan VTE Prophylaxis Risk score (from [facility] [place])>0 risk: 11 SCD applied (from [facility] [place]): No SCD contraindicated: other Pharmacological prophylaxis: NA/contraindicated Pharm contraindication: liver dx, thrombocytopenia Lines/Catheters [facility]from [facility] Mid Line Urinary Cath still in place: No Assessment/Plan Assessment/Plan 1. Left foot wound s/p debridement with wound VAC- stable - s/p skin allograft and wound vac placement 07/27/18 - pain control effective - MRI foot shows no evidence of OM - Podiatry on board and appreciate recommendations. continue wound care, IV antibiotics and wound vac - Continue current antibiotics 2. SBP with klebsiella bacteremia: - Continue Abx course per ID 3. Cirrhosis with ascites - Status post paracentesis x3 - Continue Aldactone - Continue rifaximin/lactulose - has follow up with Dr. Gómez as outpatient 4. Anemia - most likely 2/2 liver dz 5. Acute kidney injury likely secondary to hemodynamics and intravascular volume depletion-resolved - Nephrology consultation appreciated 6. Anemia of chronic disease - stable 7. C Diff diarrhea - s/p PO vanco course - resolving 8. Disposition - Continue current care. Pending placement to SNF for wound care, wound vac, and IV antibiotics - May need another paracentesis prior to discharge Result Diagram: 07/30/18 1130 07/30/18 0446 Results 24hrs Laboratory Tests Test 07/30/18 11:30 White Blood Count 4.4 L Red Blood Count 2.02 L Hemoglobin 6.9 *L Hematocrit 21.3 L Mean Corpuscular Volume 105.4 H Mean Corpuscular Hemoglobin 34.2 H Mean Corpuscular Hemoglobin Concent 32.4 Red Cell Distribution Width 17.8 H Platelet Count 40 L Mean Platelet Volume 10.9 H Immature Granulocytes % 0.700 H Neutrophils % 53.2 Lymphocytes % 27.6 Monocytes % 16.4 H Eosinophils % 1.6 Basophils % 0.5 Nucleated Red Blood Cells % 0.0 Immature Granulocytes # 0.030 Neutrophils # 2.3 Lymphocytes # 1.2 Monocytes # 0.7 Eosinophils # 0.1 Basophils # 0.0 Nucleated Red Blood Cells # 0.0 Subjective 24 Hr Interval Summary Free Text/Dictation Patient states shes feeling better today and Dilaudid is helping with abdominal discomfort. States abdominal pain is worse than left foot pain now. no acute overnight events. Requesting to say hi to [place] since has outpatient follow up scheduled Exam/Review of Systems Exam Vitals Vital Signs Date Temp Pulse Resp B/P (MAP) Pulse Ox O2 O2 Flow FiO2 Time Delivery Rate 07/31/18 98.6 80 18 95/52 (66) 96 08:15 07/30/18 Room Air 14:06 07/27/18 2.0 21:06 Intake and Output 07/30/18 07/30/18 07/31/18 1515:00 23:00 07:00 IntakeIntake Total 170 ml 660 ml 590 ml OutputOutput Total 1320 ml 1000 ml BalanceBalance 170 ml -660 ml -410 ml Exam General: Patient is a pleasant female, currently lying in bed. HEENT: scleral icterus Chest: Nontender Lungs: Clear to auscultation bilaterally, diminished. no wheezing Heart: Normal S1-S2, Regular rate and rhythm, no murmurs Abdomen: Soft, nontender, distended. bowel sounds are present. no rebound or guarding Extremities: left foot dressing in place with wound vac. swelling of LE bilaterally with no pitting edema Results Results 24hrs Laboratory Tests Test 07/30/18 11:30 White Blood Count 4.4 L Red Blood Count 2.02 L Hemoglobin 6.9 *L Hematocrit 21.3 L Mean Corpuscular Volume 105.4 H Mean Corpuscular Hemoglobin 34.2 H Mean Corpuscular Hemoglobin Concent 32.4 Red Cell Distribution Width 17.8 H Platelet Count 40 L Mean Platelet Volume 10.9 H Immature Granulocytes % 0.700 H Neutrophils % 53.2 Lymphocytes % 27.6 Monocytes % 16.4 H Eosinophils % 1.6 Basophils % 0.5 Nucleated Red Blood Cells % 0.0 Immature Granulocytes # 0.030 Neutrophils # 2.3 Lymphocytes # 1.2 Monocytes # 0.7 Eosinophils # 0.1 Basophils # 0.0 Nucleated Red Blood Cells # 0.0 Medications Medication Current Medications IV Flush (NS 3 ml) 3 ml PER PROTOCOL IV Last administered on 07/26/18at 20:08; Admin Dose 3 ML; Start 07/04/18 at 18:30 Ondansetron HCl (Zofran Inj) 4 mg Q6H PRN IV NAUSEA/VOMITING Last administered on 07/28/18 12:12; Admin Dose 4 MG; Start 07/04/18 at 18:30 Docusate Sodium (Colace) 100 mg Q12H PRN PO .CONSTIPATION; Start 07/04/18 at 18:30 Albuterol (Proventil 0.083% (Neb)) 2.5 mg Q4H RESP THERAPY PRN HHN SHORTNESS OF BREATH; Start 07/04/18 at 18:30 Metoclopramide HCl (Reglan) 5 mg Q6H PRN IV NAUSEA Last administered on 07/30/18 18:15; Admin Dose 5 MG; Start 07/05/18 at 10:00 Midodrine (Proamatine) 10 mg TID PO Last administered on 07/30/18 20:34; Admin Dose 10 MG; Start 07/06/18 at 09:00 Albuterol (Ventolin Hfa) 2 puff Q4 INH Last administered on 07/31/18 05:28; Admin Dose 2 PUFF; Start 07/06/18 at 04:30 Ondansetron HCl (Zofran Odt) 4 mg Q6H PRN ODT NAUSEA AND/OR VOMITING Last administered on 07/31/18 06:10; Admin Dose 4 MG; Start 07/06/18 at 04:00 Pantoprazole (Protonix Tab) 40 mg BID@0600,1800 PO Last administered on 07/31/18 05:28; Admin Dose 40 MG; Start 07/06/18 at 06:00 Rifaximin (Xifaxan) 200 mg TID PO Last administered on 07/30/18 20:34; Admin Dose 200 MG; Start 07/09/18 at 21:00 Acetaminophen/ Hydrocodone Bitart ([place] (5/325)) 1 tab Q6H PRN PO MODERATE PAIN LEVEL 4-6 Last administered on 07/30/18 05:42; Admin Dose 1 TAB; Start 07/14/18 at 17:30 Sodium Hypochlorite (Dakin'S (Dilute )) 1 applic DAILY IRR Last administered on 07/25/18 08:27; Admin Dose 1 APPLIC; Start 07/15/18 at 23:45 Simethicone (Mylicon) 80 mg Q6H PRN PO DISTENSION/GAS/BLOATING Last administered on 07/29/18 04:03; Admin Dose 80 MG; Start 07/16/18 at 15:30 Lactulose (Enulose) 10 gm DAILY PO Last administered on 07/30/18 08:20; Admin Dose 10 GM; Start 07/19/18 at 09:00 Spironolactone (Aldactone) 25 mg BID DIURETICS PO Last administered on 07/31/18 05:29; Admin Dose 25 MG; Start 07/19/18 at 13:00 Vancomycin HCl (Vancomycin Oral Syringe) 125 mg Q6 PO Last administered on 07/31/18 05:29; Admin Dose 125 MG; Start 07/20/18 at 18:00 Diphenhydramine HCl (Benadryl) 25 mg Q8H PRN IV PRURITUS/ITCHING Last admini stered on 07/20/18 20:21; Admin Dose 25 MG; Start 07/20/18 at 18:30 Morphine Sulfate (morphine) 6 mg Q4H PRN PO SEVERE PAIN LEVEL 7-10 Last administered on 07/30/18 20:34; Admin Dose 6 MG; Start 07/20/18 at 23:30 Ciprofloxacin (Cipro) 500 mg BID@06,18 PO Last administered on 07/31/18 05:28; Admin Dose 500 MG; Start 07/21/18 at 18:00 Doxycycline Hyclate (Vibramycin) 100 mg BID PO Last administered on 07/30/18 20:34; Admin Dose 100 MG; Start 07/21/18 at 21:00 Trazodone HCl (Desyrel) 50 mg HS PRN PO insomnia Last administered on 07/30/18 22:07; Admin Dose 50 MG; Start 07/21/18 at 23:30 Nystatin (Nystatin Powder) 1 applic BID TOP Last administered on 07/30/18 20:35; Admin Dose 1 APPLIC; Start 07/25/18 at 21:00 Nystatin (Nystatin Oint) 1 applic TID TOP Last administered on 07/30/18 20:35; Admin Dose 1 APPLIC; Start 07/27/18 at 21:00 Hydromorphone HCl (Dilaudid) 1 mg Q3H PRN IV SEVERE PAIN LEVEL 7-10 Last administered on 07/31/18 06:10; Admin Dose 1 MG; Start 07/30/18 at 13:00 LOUIE RUIZ MD Jul 31, 2018 08:49
[2018-07-31] MEDS: SODIUM HYPOCHLORITE (1/40) 1 APPLIC BTL IRR SCH (09:00)
[2018-07-31] MEDS: DOXYCYCLINE 100 MG TAB PO SCH ×2 (09:53→20:38)
[2018-07-31] MEDS: RIFAXIMIN 200 MG TAB PO SCH ×3 (09:53→20:38)
[2018-07-31] MEDS: MIDODRINE 5 MG TAB PO SCH ×3 (09:54→20:37)
[2018-07-31] MEDS: NYSTATIN 30 GM POWDER BTL TOP SCH ×2 (09:56→20:44)
[2018-07-31] MEDS: NYSTATIN 15 GM OINT TOP SCH ×3 (09:56→20:44)
[2018-07-31] MEDS: LACTULOSE 30ML CUP PO SCH (09:56)
[2018-07-31] MEDS: METOCLOPRAMIDE 10 MG INJ IV PRN ×3 (09:58→23:46)
[2018-07-31 13:25] VITALS: BP 94/52; PULSE 78; RESP 18
--- NOTE | 2018-07-31 14:51 | CONS ---
Assessment/Plan Assessment/Plan Hospital Course (Demo Recall) ID PROGRESS NOTE CURRENT ABX: DAY # => Doxycycline IV + CIPRO + Vanco Liq PO + Rifaximin EVENTS * 48 yo female with cirrhosis, sepsis with bacteremia, C Diff colitis and large foot wound * s/p Paracentesis 07/29~1100: 5000 cc of clear yellow fluid was obtained. The fluid was not sent to the lab for further analysis. * POD#4=> 07/27/18-> s/p LEFT FOOT revision surgery w/application of skin graft last night ~2000 24H INTERVAL SUMMARY * Pain in left foot post op improved -- still has pain in ABD -- EGD/COLO planned for tomorrow w/GI * She will need another para prior to DC after EGD, colo. No fevers, VSS MICRO/OTHER * 07/18/2018 LEFT FOOT WOUND CX: TISSUE (BIOPSY) CULTURE Final Organism 1 K.PNEUMONIAE SSP PNEUMONIAE QUANTITY SCANT GROWTH Organism 2 COAGULASE NEGATIVE STAPH QUANTITY SCANT GROWTH K PNE SPP COAG NEG M.I.C. RX M.I.C. RX --------- --- --------- --- CEFAZOLIN I S CEFOTAXIME S CIPROFLOXACIN <=0.25 S <=0.5 S CLINDAMYCIN <=0.25 S DOXYCYCLINE S ERYTHROMYCIN >=8 R GENTAMICIN <=1 S LEVOFLOXACIN <=0.12 S 0.25 S OXACILLIN <=0.25 S PENICILLIN-G R RIFAMPIN <=0.5 S VANCOMYCIN <=0.5 S TOBRAMYCIN <=1 S TRIMETHOPRIM/SULFAMETHOXAZOLE <=20 S <=10 S * 07/15/18 Wound Cx: WOUND CULTURE Final Organism 1 K.PNEUMONIAE SSP PNEUMONIAE QUANTITY ISOLATED FROM BROTH ONLY * 07/15/18 PARA (-) * 07/08/18 BCx (-) * 07/07/18 (+)C.Diff * 07/06/18 Urine (-) * 07/04/18 BCx (+) GNR BLOOD CULTURE Final Organism 1 K.PNEUMONIAE SSP PNEUMONIAE K PNE SPP M.I.C. RX --------- --- CEFAZOLIN I CEFOTAXIME S CIPROFLOXACIN <=0.25 S GENTAMICIN <=1 S LEVOFLOXACIN <=0.12 S TOBRAMYCIN <=1 S TRIMETHOPRIM/SULFAMETHOXAZOLE <=20 S PHYSICAL EXAMINATION: GENERAL: Afebrile, VSS --NAD HEENT: AT, NC, anicteric NECK: Supple, trach midline CHEST: Equal chest rise bilaterally, without dyspnea on observation HEART: Pulse RRR ABDOMEN: Distended EXTREMITIES: Warm, dry - LLEXT SHIRLEY wrapped SKIN: No rash, no diaphoresis ID ASSESSMENT 48 yo F admit with: 1. GNR Sepsis on admission w/lactic acidosis + BCx (+)GNR Kleb Pneumoniae due to #2 * Leukocytosis due to C.Diff recurrence 2. Acute cellulitis LLEXT w/ left foot wound == >NO OSTEOMYELITIS * POD#3 07/27/18-> s/p LEFT FOOT revision surgery w/application of skin graft last night ~1999 * s/p I&D 07/18/28 with wound vac * 07/18/2018 LEFT FOOT WOUND CX: TISSUE (BIOPSY) CULTURE Final Organism 1 K.PNEUMONIAE SSP PNEUMONIAE Organism 2 COAGULASE NEGATIVE STAPH 3. 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 Recurrent C.Diff colitis 5. Oliguric acute kidney injury = improved (-)MRSA Nares ABX ALLERGIES: KNDA INVASIVES: PIV CURRENT ABX: DAY # => Doxycycline IV + CIPRO + Vanco Liq PO + Rifaximin ID RECOMMENDATIONS/PLAN: 1. Continue current ABX until infection resolves -- anticipate 21-28 days course 2. Avoid renal toxic ABX . Consultation Date/Type/Reason Admit Date/Time Jul 04, 2018 at 14:22 Initial Consult Date 07/07/18 Requesting Provider: ANA SPICER Date/Time of Note DATE: 07/31/18 TIME: 14:47 Exam/Review of Systems Exam Vitals Vital Signs Date Temp Pulse Resp B/P (MAP) Pulse Ox O2 O2 Flow FiO2 Time Delivery Rate 07/31/18 98.4 78 18 94/52 (66) 97 13:25 07/30/18 Room Air 14:06 07/27/18 2.0 21:06 Intake and Output 07/30/18 07/30/18 07/31/18 1515:00 23:00 07:00 IntakeIntake Total 170 ml 660 ml 590 ml OutputOutput Total 1320 ml 1000 ml BalanceBalance 170 ml -660 ml -410 ml Results Result Diagram: 07/30/18 1130 07/30/18 0446 Medications Medication Current Medications IV Flush (NS 3 ml) 3 ml PER PROTOCOL IV Last administered on 07/26/18 20:08; Admin Dose 3 ML; Start 07/04/18 at 18:30 Ondansetron HCl (Zofran Inj) 4 mg Q6H PRN IV NAUSEA/VOMITING Last administered on 07/28/18at 12:12; Admin Dose 4 MG; Start 07/04/18 at 18:30 Docusate Sodium (Colace) 100 mg Q12H PRN PO .CONSTIPATION; Start 07/04/18 at 18:30 Albuterol (Proventil 0.083% (Neb)) 2.5 mg Q4H RESP THERAPY PRN HHN SHORTNESS OF BREATH; Start 07/04/18 at 18:30 Metoclopramide HCl (Reglan) 5 mg Q6H PRN IV NAUSEA Last administered on 07/31/18 09:58; Admin Dose 5 MG; Start 07/05/18 at 10:00 Midodrine (Proamatine) 10 mg TID PO Last administered on 07/31/18 13:23; Admin Dose 10 MG; Start 07/06/18 at 09:00 Albuterol (Ventolin Hfa) 2 puff Q4 INH Last administered on 07/31/18 13:31; Admin Dose 2 PUFF; Start 07/06/18 at 04:30 Ondansetron HCl (Zofran Odt) 4 mg Q6H PRN ODT NAUSEA AND/OR VOMITING Last administered on 07/31/18 13:29; Admin Dose 4 MG; Start 07/06/18 at 04:00 Pantoprazole (Protonix Tab) 40 mg BID@0600,1800 PO Last administered on 07/31/18 05:28; Admin Dose 40 MG; Start 07/06/18 at 06:00 Rifaximin (Xifaxan) 200 mg TID PO Last administered on 07/31/18 13:19; Admin Dose 200 MG; Start 07/09/18 at 21:00 Acetaminophen/ Hydrocodone Bitart ([place] (5/325)) 1 tab Q6H PRN PO MODERATE PAIN LEVEL 4-6 Last administered on 07/30/18 05:42; Admin Dose 1 TAB; Start 07/14/18 at 17:30 Sodium Hypochlorite (Dakin'S (Dilute )) 1 applic DAILY IRR Last administered on 07/25/18 08:27; Admin Dose 1 APPLIC; Start 07/15/18 at 23:45 Simethicone (Mylicon) 80 mg Q6H PRN PO DISTENSION/GAS/BLOATING Last administe red on 07/29/18 04:03; Admin Dose 80 MG; Start 07/16/18 at 15:30 Lactulose (Enulose) 10 gm DAILY PO Last administered on 07/31/18 09:56; Admin Dose 10 GM; Start 07/19/18 at 09:00 Spironolactone (Aldactone) 25 mg BID DIURETICS PO Last administered on 07/31/18 05:29; Admin Dose 25 MG; Start 07/19/18 at 13:00 Vancomycin HCl (Vancomycin Oral Syringe) 125 mg Q6 PO Last administered on 07/31/18 13:30; Admin Dose 125 MG; Start 07/20/18 at 18:00 Diphenhydramine HCl (Benadryl) 25 mg Q8H PRN IV PRURITUS/ITCHING Last administered on 07/20/18 20:21; Admin Dose 25 MG; Start 07/20/18 at 18:30 Morphine Sulfate (morphine) 6 mg Q4H PRN PO SEVERE PAIN LEVEL 7-10 Last administered on 07/30/18 20:34; Admin Dose 6 MG; Start 07/20/18 at 23:30 Ciprofloxacin (Cipro) 500 mg BID@18 PO Last administered on 07/31/18 05:28; Admin Dose 500 MG; Start 07/21/18 at 18:00 Doxycycline Hyclate (Vibramycin) 100 mg BID PO Last administered on 07/31/18 09:53; Admin Dose 100 MG; Start 07/21/18 at 21:00 Trazodone HCl (Desyrel) 50 mg HS PRN PO insomnia Last administered on 07/30/18 22:07; Admin Dose 50 MG; Start 07/21/18 at 23:30 Nystatin (Nystatin Powder) 1 applic BID TOP Last administered on 07/31/18 09:56; Admin Dose 1 APPLIC; Start 07/25/18 at 21:00 Nystatin (Nystatin Oint) 1 applic TID TOP Last administered on 07/31/18 13:30; Admin Dose 1 APPLIC; Start 07/27/18 at 21:00 Hydromorphone HCl (Dilaudid) 1 mg Q3H PRN IV SEVERE PAIN LEVEL 7-10 Last administered on 07/31/18 13:30; Admin Dose 1 MG; Start 07/30/18 at 13:00 CHRIS BOWEN NP Jul 31, 2018 14:51
[2018-07-31 14:55] VITALS: BP 100/49; PULSE 78; RESP 21
--- NOTE | 2018-07-31 15:05 | CONS ---
DATE OF ADMISSION: 07/04/2018 DATE OF CONSULTATION: TYPE OF CONSULTATION: Gastroenterology. REASON FOR CONSULTATION: Anemia and cirrhosis of liver. HISTORY OF PRESENT ILLNESS: A 48-year-old female with a history of cirrhosis of liver, status post m ultiple paracenteses, C. difficile colitis, hypertension, IBS, came to the ER a few weeks ago complai lamberto of pain and the redness in the left lower extremity, also abdominal distention. The patient was evaluated. Diagnosis of cellulitis entertained. She required a skin graft and also wound VAC. The patient is a lso on multiple antibiotics. She had multiple paracenteses and now is being treated for spontaneous bacterial peritonitis, last paracentesis, the WBC count was normal. She is also anemic. No melena, no hematochezia, no evidence of active GI bleeding. The patient is on liver transplant and as per [facility] transplant team, she was advised to have both EGD and colonoscopy to be done, so GI consult was willy led in. PAST MEDICAL HISTORY: Cirrhosis of liver. PAST SURGICAL HISTORY: Cholecystectomy, colonoscopy done by [facility] few years ago. 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 Former smoker. PHYSICAL EXAMINATION: GENERAL: Alert, awake, not in distress. VITAL SIGNS: Stable. HEENT: Unremarkable. NECK: Supple, no thyromegaly, no lymphadenopathy. CARDIOVASCULAR: No murmur, gallop or click. LUNGS: Clear. ABDOMEN: Soft, mild distention. EXTREMITIES: No edema. Left leg is good, has wound VAC. CENTRAL NERVOUS SYSTEM: Grossly within normal limits. LABORATORY DATA: Her INR is 2.2. Bilirubin is elevated to 4.5. Indeed, it was 8.3, slowly coming d own. BUN and creatinine all within normal limits. Albumin is 2. IMPRESSION: 1. Cirrhosis of liver. The patient is on transplant list, the cause of cirrhosis is alcohol. The p atient is sober for the last many years. 2. Anemia, no evidence of active bleeding, may be anemia of chronic disease. 3. Thrombocytopenia, again, due to the cirrhosis of liver with splenomegaly. 4. 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 5. Cellulitis, status post skin graft and wound VAC. 6. Clostridium difficile colitis. PLAN: At this point, stop Protonix since the patient is positive for Clostridium difficile colitis. Continue rifaximin, Lactulose. Will send for alpha fetoprotein as hepatocellular cancer screening a nd she will require also ultrasound of the liver if it is not done in the last 6 months and when doug ent is more stable, will proceed with EGD and colonoscopy as requirement by the transplant team befor e accepting her for the surgery. Dictated By: TRISTIAN NAIDU MD PJ/NTS Conf#: [id number] DID#: [id number] CC: LOUIE RUIZ MD; ANA SPICER MD;*EndCC*
[2018-07-31 21:12] VITALS: BP 103/50; PULSE 96; RESP 18
[2018-07-31] MEDS: traZODone 50 MG TAB PO PRN (22:19)
[2018-08-01] VITALS (8 sets, daily range): BP systolic 90–99; BP diastolic 46–63; PULSE 76–89; RESP 18–19
[2018-08-01] MEDS: ALBUTEROL HFA 8 GM INHALER INH SCH ×6 (01:15→20:33)
[2018-08-01] MEDS: HYDROmorphONE 1 MG/ML SYG IV PRN ×2 (03:37→08:59)
[2018-08-01] MEDS: ONDANSETRON (ODT) 4 MG TAB ODT PRN (03:37)
[2018-08-01] MEDS: PANTOPRAZOLE (EC) 40 MG TAB PO SCH ×2 (05:41→17:36)
[2018-08-01] MEDS: VANCOMYCIN HCL 250 MG/5ML POSYG PO SCH ×4 (05:41→23:42)
[2018-08-01] MEDS: CIPROFLOXACIN 500 MG TAB PO SCH (05:41)
[2018-08-01] MEDS: SPIRONOLACTONE 25 MG TAB PO SCH ×2 (06:00→18:59)
[2018-08-01] MEDS ORDERED: ALBUMIN HUMAN 25% 100 ML IV ONE (06:30)
[2018-08-01] MEDS: MIDODRINE 5 MG TAB PO SCH ×4 (08:05→20:33)
[2018-08-01] MEDS: SODIUM HYPOCHLORITE (1/40) 1 APPLIC BTL IRR SCH (08:05)
[2018-08-01] MEDS: DOXYCYCLINE 100 MG TAB PO SCH (08:05)
[2018-08-01] MEDS: LACTULOSE 30ML CUP PO SCH (08:05)
[2018-08-01] MEDS: RIFAXIMIN 200 MG TAB PO SCH ×3 (08:05→20:33)
[2018-08-01] MEDS: NYSTATIN 30 GM POWDER BTL TOP SCH ×2 (08:06→20:38)
[2018-08-01] MEDS: NYSTATIN 15 GM OINT TOP SCH ×3 (08:06→20:38)
[2018-08-01] MEDS: METOCLOPRAMIDE 10 MG INJ IV PRN (08:59)
--- NOTE | 2018-08-01 09:49 | CONS ---
Assessment/Plan Assessment/Plan Hospital Course (Demo Recall) 48 yo female presents with left foot cellulitis Interval hx: ABD is edematous, continues to leak clear yellow fluid from paracentesis site. C/O abd pain when palpated. Continues to have diarrhea. Nausea controlled with anti emetics. So far, ascitic fluid cx are unremarkable. WBC in ascitic fluid wnl. 1. Alcoholic Cirrhosis of liver. -on transplant list at [facility] 2. Anemia, no evidence of active bleeding, may be anemia of chronic disease. 3. Pancytopenia secondary to #1 4. 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 5. Cellulitis, status post skin graft and wound VAC. -K. pneumoniae and coagulase neg staph in wound 6. Clostridium difficile colitis. PLAN: Continue rifaximin, Lactulose AFP US of liver to r/o HCC. EGD and colonoscopy once pt is more stable. Pt examined and plan of care discussed with Dr. Gómez Consultation Date/Type/Reason Admit Date/Time Jul 04, 2018 at 14:22 Initial Consult Date 07/07/18 Requesting Provider: ANA SPICER Date/Time of Note DATE: 08/01/18 TIME: 09:33 24 HR Interval Summary Free Text/Dictation Pt continues to drain clear yellow fluid from paracentesis site. Exam/Review of Systems Exam Vitals Vital Signs Date Temp Pulse Resp B/P (MAP) Pulse Ox O2 O2 Flow FiO2 Time Delivery Rate 08/01/18 83 99/53 (68) 08:52 08/01/18 98.0 19 99 08:38 07/30/18 Room Air 14:06 Intake and Output 07/31/18 07/31/18 08/01/18 1515:00 23:00 07:00 IntakeIntake Total 360 ml 120 ml OutputOutput Total 800 ml 1800 ml BalanceBalance 360 ml -680 ml -1800 ml Constitutional: alert, oriented Psych: no complaints Head: normocephalic Eyes: PERRL, icteric Respiratory: clear to auscultation Cardiovascular: regular rate and rhythm Gastrointestinal: ascites, distended, other (edema, PTP in all quadrants) Musculoskeletal: other (RLE warm, with normal pulse, LLE wrapped in gauze and to wound vac) 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: nl mental status Results Result Diagram: 2/25/19 0525 2/25/19 0525 Results 24hrs Laboratory Tests Test 08/01/18 05:25 White Blood Count 4.7 L Red Blood Count 2.47 #L Hemoglobin 8.3 #L Hematocrit 25.4 L Mean Corpuscular Volume 102.8 H Mean Corpuscular Hemoglobin 33.6 H Mean Corpuscular Hemoglobin Concent 32.7 Red Cell Distribution Width 18.7 H Platelet Count 41 L Mean Platelet Volume 10.9 H Immature Granulocytes % 0.900 H Neutrophils % 55.3 Lymphocytes % 26.3 Monocytes % 14.3 H Eosinophils % 2.6 Basophils % 0.6 Nucleated Red Blood Cells % 0.0 Immature Granulocytes # 0.040 H Neutrophils # 2.6 Lymphocytes # 1.2 Monocytes # 0.7 Eosinophils # 0.1 Basophils # 0.0 Nucleated Red Blood Cells # 0.0 Sodium Level 135 Potassium Level 3.8 Chloride Level 102 Carbon Dioxide Level 25 Anion Gap 8 Blood Urea Nitrogen 9 Creatinine 0.44 Est Glomerular Filtrat Rate mL/min > 60 Glucose Level 80 Calcium Level 7.5 L Magnesium Level 1.8 Total Bilirubin 4.2 H Direct Bilirubin 0.40 H Indirect Bilirubin 3.8 H Aspartate Amino Transf (AST/SGOT) 51 H Alanine Aminotransferase (ALT/SGPT) 44 Alkaline Phosphatase 137 H Total Protein 4.7 L Albumin 1.9 L Globulin 2.80 Albumin/Globulin Ratio 0.67 Medications Medication Current Medications IV Flush (NS 3 ml) 3 ml PER PROTOCOL IV Last administered on 07/26/18at 20:08; Admin Dose 3 ML; Start 07/04/18 at 18:30 Ondansetron HCl (Zofran Inj) 4 mg Q6H PRN IV NAUSEA/VOMITING Last administered on 07/28/18at 12:12; Admin Dose 4 MG; Start 07/04/18 at 18:30 Docusate Sodium (Colace) 100 mg Q12H PRN PO .CONSTIPATION; Start 07/04/18 at 18:30 Albuterol (Proventil 0.083% (Neb)) 2.5 mg Q4H RESP THERAPY PRN HHN SHORTNESS OF BREATH; Start 07/04/18 at 18:30 Metoclopramide HCl (Reglan) 5 mg Q6H PRN IV NAUSEA Last administered on 08/01/18at 08:59; Admin Dose 5 MG; Start 07/05/18 at 10:00 Midodrine (Proamatine) 10 mg TID PO Last administered on 08/01/18 08:05; Admin Dose 10 MG; Start 07/06/18 at 09:00 Albuterol (Ventolin Hfa) 2 puff Q4 INH Last administered on 08/01/18 05:40; Admin Dose 2 PUFF; Start 07/06/18 at 04:30 Ondansetron HCl (Zofran Odt) 4 mg Q6H PRN ODT NAUSEA AND/OR VOMITING Last ad ministered on 08/01/18 03:37; Admin Dose 4 MG; Start 07/06/18 at 04:00 Pantoprazole (Protonix Tab) 40 mg BID@0600,1800 PO Last administered on 08/01/18 05:41; Admin Dose 40 MG; Start 07/06/18 at 06:00 Rifaximin (Xifaxan) 200 mg TID PO Last administered on 08/01/18 08:05; Admin Dose 200 MG; Start 07/09/18 at 21:00 Acetaminophen/ Hydrocodone Bitart ([place] (5/325)) 1 tab Q6H PRN PO MODERATE PAIN LEVEL 4-6 Last administered on 07/30/18 05:42; Admin Dose 1 TAB; Start 07/14/18 at 17:30 Sodium Hypochlorite (Dakin'S (Dilute )) 1 applic DAILY IRR Last administered on 07/25/18 08:27; Admin Dose 1 APPLIC; Start 07/15/18 at 23:45 Simethicone (Mylicon) 80 mg Q6H PRN PO DISTENSION/GAS/BLOATING Last administered on 07/31/18 20:37; Admin Dose 80 MG; Start 07/16/18 at 15:30 Lactulose (Enulose) 10 gm DAILY PO Last administered on 08/01/18 08:05; Admin Dose 10 GM; Start 07/19/18 at 09:00 Spironolactone (Aldactone) 25 mg BID DIURETICS PO Last administered on 07/31/18 17:19; Admin Dose 25 MG; Start 07/19/18 at 13:00 Vancomycin HCl (Vancomycin Oral Syringe) 125 mg Q6 PO Last administered on 08/01/18 05:41; Admin Dose 125 MG; Start 07/20/18 at 18:00 Diphenhydramine HCl (Benadryl) 25 mg Q8H PRN IV PRURITUS/ITCHING Last administered on 07/20/18 20:21; Admin Dose 25 MG; Start 07/20/18 at 18:30 Morphine Sulfate (morphine) 6 mg Q4H PRN PO SEVERE PAIN LEVEL 7-10 Last administered on 07/30/18 20:34; Admin Dose 6 MG; Start 07/20/18 at 23:30 Ciprofloxacin (Cipro) 500 mg BID@06,18 PO Last administered on 08/01/18 05:41; Admin Dose 500 MG; Start 07/21/18 at 18:00 Doxycycline Hyclate (Vibramycin) 100 mg BID PO Last administered on 08/01/18 08:05; Admin Dose 100 MG; Start 07/21/18 at 21:00 Trazodone HCl (Desyrel) 50 mg HS PRN PO insomnia Last administered on 07/31/18 22:19; Admin Dose 50 MG; Start 07/21/18 at 23:30 Nystatin (Nystatin Powder) 1 applic BID TOP Last administered on 08/01/18 08:06; Admin Dose 1 APPLIC; Start 07/25/18 at 21:00 Nystatin (Nystatin Oint) 1 applic TID TOP Last administered on 08/01/18 08:06; Admin Dose 1 APPLIC; Start 07/27/18 at 21:00 Hydromorphone HCl (Dilaudid) 1 mg Q3H PRN IV SEVERE PAIN LEVEL 7-10 Last administered on 08/01/18 08:59; Admin Dose 1 MG; Start 07/30/18 at 13:00 SARA EISENBERG Aug 01, 2018 09:46
[2018-08-01] MEDS ORDERED: morphine 2 MG INJ IV STA (14:20)
--- NOTE | 2018-08-01 15:53 | CONS ---
Assessment/Plan Assessment/Plan Hospital Course (Demo Recall) Stable no acute events overnight. Patient is alert feels good, looks comfortable, no fevers Microbiology: Blood culture grew Klebsiella pneumonia on July 04 susceptible to Cipro and Levaquin, stool for C. difficile positive, urine culture negative MRSA swab negative, L foot wound culture grew Klebsiella pneumoniae susceptible to ming quinolones and staph species Antimicrobials: Cipro, Doxycycline PO Vanco Physical examination: Chronically ill-appearing middle-aged woman who is in no distress. Head atraumatic normocephalic sclera nonicteric vehicle mucosa dry neck is supple chest rise symmetrical breath sounds diminished at bases. Heart: S1-S2. Abdomen soft bowel sounds present extremities with bilateral edema, left lower extremity dressing intact Assessment: 1. S/p sepsis with Klebsiella pneumonia bacteremia likely secondary to SBP vs #2 2. Left lower extremity abscess/ cellulitis==> neg OM, s/p i/d 07/18/18 with wound vac 3. C. difficile colitis 4. Alcoholic liver cirrhosis 5. Recurrent ascites 6. Anemia and thrombocytopenia Plan: Remains stable, continue oral vancomycin, DC other antibiotics, continue wound care per podiatry recommendations Consultation Date/Type/Reason Admit Date/Time Jul 04, 2018 at 14:22 Initial Consult Date 07/07/18 Type of Consult id Requesting Provider: ANA SPICER Date/Time of Note DATE: 08/01/18 TIME: 15:52 Exam/Review of Systems Exam Vitals Vital Signs Date Temp Pulse Resp B/P (MAP) Pulse Ox O2 O2 Flow FiO2 Time Delivery Rate 08/01/18 93.8 76 18 93/63 (73) 92 14:58 07/30/18 Room Air 14:06 Intake and Output 07/31/18 07/31/18 08/01/18 1515:00 23:00 07:00 IntakeIntake Total 360 ml 120 ml OutputOutput Total 800 ml 1800 ml BalanceBalance 360 ml -680 ml -1800 ml Results Result Diagram: 08/01/18 0525 08/01/18 0525 Results 24hrs Laboratory Tests Test 08/01/18 05:25 White Blood Count 4.7 L Red Blood Count 2.47 #L Hemoglobin 8.3 #L Hematocrit 25.4 L Mean Corpuscular Volume 102.8 H Mean Corpuscular Hemoglobin 33.6 H Mean Corpuscular Hemoglobin Concent 32.7 Red Cell Distribution Width 18.7 H Platelet Count 41 L Mean Platelet Volume 10.9 H Immature Granulocytes % 0.900 H Neutrophils % 55.3 Lymphocytes % 26.3 Monocytes % 14.3 H Eosinophils % 2.6 Basophils % 0.6 Nucleated Red Blood Cells % 0.0 Immature Granulocytes # 0.040 H Neutrophils # 2.6 Lymphocytes # 1.2 Monocytes # 0.7 Eosinophils # 0.1 Basophils # 0.0 Nucleated Red Blood Cells # 0.0 Sodium Level 135 Potassium Level 3.8 Chloride Level 102 Carbon Dioxide Level 25 Anion Gap 8 Blood Urea Nitrogen 9 Creatinine 0.44 Est Glomerular Filtrat Rate mL/min > 60 Glucose Level 80 Calcium Level 7.5 L Magnesium Level 1.8 Total Bilirubin 4.2 H Direct Bilirubin 0.40 H Indirect Bilirubin 3.8 H Aspartate Amino Transf (AST/SGOT) 51 H Alanine Aminotransferase (ALT/SGPT) 44 Alkaline Phosphatase 137 H Total Protein 4.7 L Albumin 1.9 L Globulin 2.80 Albumin/Globulin Ratio 0.67 Alpha Fetoprotein 2.15 Medications Medication Current Medications IV Flush (NS 3 ml) 3 ml PER PROTOCOL IV Last administered on 07/26/18 20:08; Admin Dose 3 ML; Start 07/04/18 at 18:30 Ondansetron HCl (Zofran Inj) 4 mg Q6H PRN IV NAUSEA/VOMITING Last administered on 07/28/18 12:12; Admin Dose 4 MG; Start 07/04/18 at 18:30 Docusate Sodium (Colace) 100 mg Q12H PRN PO .CONSTIPATION; Start 07/04/18 at 18:30 Albuterol (Proventil 0.083% (Neb)) 2.5 mg Q4H RESP THERAPY PRN HHN SHORTNESS OF BREATH; Start 07/04/18 at 18:30 Metoclopramide HCl (Reglan) 5 mg Q6H PRN IV NAUSEA Last administered on 08/01/18 08:59; Admin Dose 5 MG; Start 07/05/18 at 10:00 Midodrine (Proamatine) 10 mg TID PO Last administered on 08/01/18 08:05; Admin Dose 10 MG; Start 07/06/18 at 09:00 Albuterol (Ventolin Hfa) 2 puff Q4 INH Last administered on 08/01/18 05:40; Admin Dose 2 PUFF; Start 07/06/18 at 04:30 Ondansetron HCl (Zofran Odt) 4 mg Q6H PRN ODT NAUSEA AND/OR VOMITING Last administered on 08/01/18 03:37; Admin Dose 4 MG; Start 07/06/18 at 04:00 Pantoprazole (Protonix Tab) 40 mg BID@0600,1800 PO Last administered on 08/01/18 05:41; Admin Dose 40 MG; Start 07/06/18 at 06:00 Rifaximin (Xifaxan) 200 mg TID PO Last administered on 08/01/18 08:05; Admin Dose 200 MG; Start 07/09/18 at 21:00 Acetaminophen/ Hydrocodone Bitart ([place] (5/325)) 1 tab Q6H PRN PO MODERATE PAIN LEVEL 4-6 Last administered on 07/30/18 05:42; Admin Dose 1 TAB; Start 07/14/18 at 17:30 Sodium Hypochlorite (Dakin'S (Dilute )) 1 applic DAILY IRR Last administere d on 07/25/18 08:27; Admin Dose 1 APPLIC; Start 07/15/18 at 23:45 Simethicone (Mylicon) 80 mg Q6H PRN PO DISTENSION/GAS/BLOATING Last administered on 07/31/18 20:37; Admin Dose 80 MG; Start 07/16/18 at 15:30 Lactulose (Enulose) 10 gm DAILY PO Last administered on 08/01/18 08:05; Admin Dose 10 GM; Start 07/19/18 at 09:00 Spironolactone (Aldactone) 25 mg BID DIURETICS PO Last administered on 17:19; Admin Dose 25 MG; Start 07/19/18 at 13:00 Vancomycin HCl (Vancomycin Oral Syringe) 125 mg Q6 PO Last administered on 08/01/18 05:41; Admin Dose 125 MG; Start 07/20/18 at 18:00 Diphenhydramine HCl (Benadryl) 25 mg Q8H PRN IV PRURITUS/ITCHING Last administered on 07/20/18 20:21; Admin Dose 25 MG; Start 07/20/18 at 18:30 Morphine Sulfate (morphine) 6 mg Q4H PRN PO SEVERE PAIN LEVEL 7-10 Last administered on 07/30/18 20:34; Admin Dose 6 MG; Start 07/20/18 at 23:30 Ciprofloxacin (Cipro) 500 mg BID@06,18 PO Last administered on 08/01/18 05:41; Admin Dose 500 MG; Start 07/21/18 at 18:00 Doxycycline Hyclate (Vibramycin) 100 mg BID PO Last administered on 08/01/18 08:05; Admin Dose 100 MG; Start 07/21/18 at 21:00 Trazodone HCl (Desyrel) 50 mg HS PRN PO insomnia Last administered on 07/31/18 22:19; Admin Dose 50 MG; Start 07/21/18 at 23:30 Nystatin (Nystatin Powder) 1 applic BID TOP Last administered on 08/01/18 08:06; Admin Dose 1 APPLIC; Start 07/25/18 at 21:00 Nystatin (Nystatin Oint) 1 applic TID TOP Last administered on 08/01/18 12:29; Admin Dose 1 APPLIC; Start 07/27/18 at 21:00 Hydromorphone HCl (Dilaudid) 1 mg Q3H PRN IV SEVERE PAIN LEVEL 7-10 Last adm inistered on 08/01/18 08:59; Admin Dose 1 MG; Start 07/30/18 at 13:00 EMA MUELLER NP Aug 01, 2018 15:53
--- NOTE | 2018-08-01 17:31 | PN ---
Date/Time of Note Date/Time of Note DATE: 08/01/18 TIME: 17:30 Assessment/Plan VTE Prophylaxis Risk score (from Nsg)>0 risk: 9 Pharmacological prophylaxis: NA/contraindicated Pharm contraindication: liver dx Lines/Catheters IV Catheter Type (from Nrsg): Mid Line Urinary Cath still in place: No Assessment/Plan Hospital Course 1. Left foot wound s/p debridement with wound VAC- stable - s/p skin allograft and wound vac placement 07/27/18 - pain control effective - MRI foot shows no evidence of OM - Podiatry on board and appreciate recommendations. continue wound care, IV antibiotics and wound vac - Continue current antibiotics 2. SBP with klebsiella bacteremia: - Continue Abx course per ID 3. Cirrhosis with ascites - Status post paracentesis x3 - Continue Aldactone - Continue rifaximin/lactulose - has follow up with Dr. Gómez as outpatient 4. Anemia - most likely 2/2 liver dz 5. Acute kidney injury likely secondary to hemodynamics and intravascular volume depletion-resolved - Nephrology consultation appreciated 6. Anemia of chronic disease - stable 7. C Diff diarrhea - s/p PO vanco course - resolving 8. Disposition - Continue current care. Pending placement to SNF for wound care, wound vac, and IV antibiotics - May need another paracentesis prior to discharge Result Diagram: 08/01/18 0525 08/01/18 0525 Results 24hrs Laboratory Tests Test 08/01/18 05:25 White Blood Count 4.7 L Red Blood Count 2.47 #L Hemoglobin 8.3 #L Hematocrit 25.4 L Mean Corpuscular Volume 102.8 H Mean Corpuscular Hemoglobin 33.6 H Mean Corpuscular Hemoglobin Concent 32.7 Red Cell Distribution Width 18.7 H Platelet Count 41 L Mean Platelet Volume 10.9 H Immature Granulocytes % 0.900 H Neutrophils % 55.3 Lymphocytes % 26.3 Monocytes % 14.3 H Eosinophils % 2.6 Basophils % 0.6 Nucleated Red Blood Cells % 0.0 Immature Granulocytes # 0.040 H Neutrophils # 2.6 Lymphocytes # 1.2 Monocytes # 0.7 Eosinophils # 0.1 Basophils # 0.0 Nucleated Red Blood Cells # 0.0 Sodium Level 135 Potassium Level 3.8 Chloride Level 102 Carbon Dioxide Level 25 Anion Gap 8 Blood Urea Nitrogen 9 Creatinine 0.44 Est Glomerular Filtrat Rate mL/min > 60 Glucose Level 80 Calcium Level 7.5 L Magnesium Level 1.8 Total Bilirubin 4.2 H Direct Bilirubin 0.40 H Indirect Bilirubin 3.8 H Aspartate Amino Transf (AST/SGOT) 51 H Alanine Aminotransferase (ALT/SGPT) 44 Alkaline Phosphatase 137 H Total Protein 4.7 L Albumin 1.9 L Globulin 2.80 Albumin/Globulin Ratio 0.67 Alpha Fetoprotein 2.15 Subjective 24 Hr Interval Summary Constitutional: no complaints Exam/Review of Systems Exam Vitals Vital Signs Date Temp Pulse Resp B/P (MAP) Pulse Ox O2 O2 Flow FiO2 Time Delivery Rate 08/01/18 93.8 76 18 93/63 (73) 92 14:58 07/30/18 Room Air 14:06 Intake and Output 07/31/18 07/31/18 08/01/18 1414:59 22:59 06:59 IntakeIntake Total 360 ml 120 ml OutputOutput Total 800 ml 1800 ml BalanceBalance 360 ml -680 ml -1800 ml Constitutional: alert, oriented Respiratory: clear to auscultation Cardiovascular: regular rate and rhythm Gastrointestinal: soft; No distended Musculoskeletal: nl extremities to inspection Results Results 24hrs Laboratory Tests Test 08/01/18 05:25 White Blood Count 4.7 L Red Blood Count 2.47 #L Hemoglobin 8.3 #L Hematocrit 25.4 L Mean Corpuscular Volume 102.8 H Mean Corpuscular Hemoglobin 33.6 H Mean Corpuscular Hemoglobin Concent 32.7 Red Cell Distribution Width 18.7 H Platelet Count 41 L Mean Platelet Volume 10.9 H Immature Granulocytes % 0.900 H Neutrophils % 55.3 Lymphocytes % 26.3 Monocytes % 14.3 H Eosinophils % 2.6 Basophils % 0.6 Nucleated Red Blood Cells % 0.0 Immature Granulocytes # 0.040 H Neutrophils # 2.6 Lymphocytes # 1.2 Monocytes # 0.7 Eosinophils # 0.1 Basophils # 0.0 Nucleated Red Blood Cells # 0.0 Sodium Level 135 Potassium Level 3.8 Chloride Level 102 Carbon Dioxide Level 25 Anion Gap 8 Blood Urea Nitrogen 9 Creatinine 0.44 Est Glomerular Filtrat Rate mL/min > 60 Glucose Level 80 Calcium Level 7.5 L Magnesium Level 1.8 Total Bilirubin 4.2 H Direct Bilirubin 0.40 H Indirect Bilirubin 3.8 H Aspartate Amino Transf (AST/SGOT) 51 H Alanine Aminotransferase (ALT/SGPT) 44 Alkaline Phosphatase 137 H Total Protein 4.7 L Albumin 1.9 L Globulin 2.80 Albumin/Globulin Ratio 0.67 Alpha Fetoprotein 2.15 Medications Medication Current Medications IV Flush (NS 3 ml) 3 ml PER PROTOCOL IV Last administered on 07/26/18 20:08; Admin Dose 3 ML; Start 07/04/18 at 18:30 Ondansetron HCl (Zofran Inj) 4 mg Q6H PRN IV NAUSEA/VOMITING Last administered on 07/28/18 12:12; Admin Dose 4 MG; Start 07/04/18 at 18:30 Docusate Sodium (Colace) 100 mg Q12H PRN PO .CONSTIPATION; Start 07/04/18 at 18:30 Albuterol (Proventil 0.083% (Neb)) 2.5 mg Q4H RESP THERAPY PRN HHN SHORTNESS OF BREATH; Start 07/04/18 at 18:30 Metoclopramide HCl (Reglan) 5 mg Q6H PRN IV NAUSEA Last administered on 08:59; Admin Dose 5 MG; Start 07/05/18 at 10:00 Midodrine (Proamatine) 10 mg TID PO Last administered on 08/01/18 08:05; Admin Dose 10 MG; Start 07/06/18 at 09:00 Albuterol (Ventolin Hfa) 2 puff Q4 INH Last administered on 08/01/18 05:40; Admin Dose 2 PUFF; Start 07/06/18 at 04:30 Ondansetron HCl (Zofran Odt) 4 mg Q6H PRN ODT NAUSEA AND/OR VOMITING Last administered on 08/01/18 03:37; Admin Dose 4 MG; Start 07/06/18 at 04:00 Pantoprazole (Protonix Tab) 40 mg BID@0600,1800 PO Last administered on 08/01/18 05:41; Admin Dose 40 MG; Start 07/06/18 at 06:00 Rifaximin (Xifaxan) 200 mg TID PO Last administered on 08/01/18 08:05; Admin Dose 200 MG; Start 07/09/18 at 21:00 Acetaminophen/ Hydrocodone Bitart ([place] (5/325)) 1 tab Q6H PRN PO MODERATE PAIN LEVEL 4-6 Last administered on 07/30/18 05:42; Admin Dose 1 TAB; Start 07/14/18 at 17:30 Sodium Hypochlorite (Dakin'S (Dilute )) 1 applic DAILY IRR Last administered on 07/25/18 08:27; Admin Dose 1 APPLIC; Start 07/15/18 at 23:45 Simethicone (Mylicon) 80 mg Q6H PRN PO DISTENSION/GAS/BLOATING Last administered on 07/31/18 20:37; Admin Dose 80 MG; Start 07/16/18 at 15:30 Lactulose (Enulose) 10 gm DAILY PO Last administered on 08/01/18 08:05; Admin Dose 10 GM; Start 07/19/18 at 09:00 Spironolactone (Aldactone) 25 mg BID DIURETICS PO Last administered on 07/31/18 17:19; Admin Dose 25 MG; Start 07/19/18 at 13:00 Vancomycin HCl (Vancomycin Oral Syringe) 125 mg Q6 PO Last administered on 08/01/18 05:41; Admin Dose 125 MG; Start 07/20/18 at 18:00 Diphenhydramine HCl (Benadryl) 25 mg Q8H PRN IV PRURITUS/ITCHING Last administered on 07/20/18 20:21; Admin Dose 25 MG; Start 07/20/18 at 18:30 Morphine Sulfate (morphine) 6 mg Q4H PRN PO SEVERE PAIN LEVEL 7-10 Last administered on 07/30/18 20:34; Admin Dose 6 MG; Start 07/20/18 at 23:30 Trazodone HCl (Desyrel) 50 mg HS PRN PO insomnia Last administered on 07/31/18 22:19; Admin Dose 50 MG; Start 07/21/18 at 23:30 Nystatin (Nystatin Powder) 1 applic BID TOP Last administered on 08/01/18 08:06; Admin Dose 1 APPLIC; Start 07/25/18 at 21:00 Nystatin (Nystatin Oint) 1 applic TID TOP Last administered on 08/01/18 12:29; Admin Dose 1 APPLIC; Start 07/27/18 at 21:00 Hydromorphone HCl (Dilaudid) 1 mg Q3H PRN IV SEVERE PAIN LEVEL 7-10 Last administered on 08/01/18at 08:59; Admin Dose 1 MG; Start 07/30/18 at 13:00 ANA SPICER Aug 01, 2018 17:31
[2018-08-01] MEDS: morphine LIQ (10 MG/5 ML) CUP PO PRN (22:21)
[2018-08-01] MEDS: traZODone 50 MG TAB PO PRN (23:42)
[2018-08-02] MEDS: ALBUTEROL HFA 8 GM INHALER INH SCH ×6 (01:05→21:26)
[2018-08-02 02:00] VITALS: BP 101/50; PULSE 86; RESP 19
[2018-08-02] MEDS: METOCLOPRAMIDE 10 MG INJ IV PRN ×3 (05:22→21:27)
[2018-08-02] MEDS: PANTOPRAZOLE (EC) 40 MG TAB PO SCH ×2 (05:26→17:28)
[2018-08-02] MEDS: VANCOMYCIN HCL 250 MG/5ML POSYG PO SCH ×4 (05:27→23:50)
[2018-08-02] MEDS: SPIRONOLACTONE 25 MG TAB PO SCH ×2 (05:27→17:28)
[2018-08-02] MEDS: morphine LIQ (10 MG/5 ML) CUP PO PRN (05:56)
[2018-08-02 07:00] VITALS: BP 85/49; PULSE 83; RESP 18
[2018-08-02 09:35] VITALS: BP 94/52; PULSE 82
[2018-08-02] MEDS: HYDROmorphONE 1 MG/ML SYG IV PRN ×3 (09:44→21:27)
[2018-08-02] MEDS: LACTULOSE 30ML CUP PO SCH (09:46)
--- NOTE | 2018-08-02 09:46 | CONS ---
Assessment/Plan Assessment/Plan Hospital Course (Demo Recall) 48 yo female presents with left foot cellulitis Interval hx: ABD is edematous, continues to leak clear yellow fluid from paracentesis site. C/O abd pain, particularly on sides of abdomen. Continues to have diarrhea but improved. Nausea controlled with anti emetics. So far, ascitic fluid cx are unremarkable. WBC in ascitic fluid wnl. SBP has been in 80s. This am bp noted as 85/49. 1. Alcoholic Cirrhosis of liver. -on transplant list at [facility] -AFP wnl 2. Anemia, no evidence of active bleeding, may be anemia of chronic disease. 3. Pancytopenia secondary to #1 4. 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 5. Cellulitis, status post skin graft and wound VAC. -K. pneumoniae and coagulase neg staph in wound -followed by podiatry 6. Clostridium difficile colitis. US of abd 08/01: 1. Coarse nodular liver consistent with cirrhosis. No focal hepatic masses. 2. Status post cholecystectomy. No biliary duct dilatation. 3. Patent portal vein with pulsatile hepatopetal flow. 4. Suspect portal hypertension as demonstrated by moderate ascites. 5. Moderate size right pleural effusion as well. 6. Increased right renal cortical echogenicity suggest medical renal disease PLAN: Check INR, consider vitamin K and or FFP prior to procedures Pt is only on Vanco PO now Continue rifaximin, Lactulose AFP EGD and colonoscopy once pt is stable Pt examined and plan of care discussed with Dr. Gómez Consultation Date/Type/Reason Admit Date/Time Jul 04, 2018 at 14:22 Initial Consult Date 07/07/18 Requesting Provider: ANA SPICER Date/Time of Note DATE: 08/02/18 TIME: 09:40 Exam/Review of Systems Exam Vitals Vital Signs Date Temp Pulse Resp B/P (MAP) Pulse Ox O2 O2 Flow FiO2 Time Delivery Rate 08/02/18 82 94/52 (66) 09:35 08/02/18 98.8 18 94 Room Air 07:00 Intake and Output 08/01/18 08/01/18 08/02/18 1515:00 23:00 07:00 IntakeIntake Total 320 ml 360 ml OutputOutput Total 650 ml 1000 ml BalanceBalance 320 ml -290 ml -1000 ml Constitutional: alert, oriented Psych: no complaints Head: normocephalic Eyes: PERRL, icteric Respiratory: clear to auscultation Cardiovascular: regular rate and rhythm Gastrointestinal: ascites, tender, other (edema) Musculoskeletal: other (rt foot has dressing and wound vac) 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: nl mental status, nl speech Results Result Diagram: 08/01/18 0525 08/02/18 0630 Results 24hrs Laboratory Tests Test 08/02/18 06:30 Sodium Level 135 Potassium Level 3.8 Chloride Level 106 Carbon Dioxide Level 25 Anion Gap 4 L Blood Urea Nitrogen 9 Creatinine 0.40 L Est Glomerular Filtrat Rate mL/min > 60 Glucose Level 88 Calcium Level 7.5 L Total Bilirubin 5.4 H Direct Bilirubin 0.40 H Indirect Bilirubin 5.0 H Aspartate Amino Transf (AST/SGOT) 61 H Alanine Aminotransferase (ALT/SGPT) 48 Alkaline Phosphatase 116 Total Protein 4.6 L Albumin 2.0 L Globulin 2.60 Albumin/Globulin Ratio 0.76 Medications Medication Current Medications IV Flush (NS 3 ml) 3 ml PER PROTOCOL IV Last administered on 07/26/18at 20:08; Admin Dose 3 ML; Start 07/04/18 at 18:30 Ondansetron HCl (Zofran Inj) 4 mg Q6H PRN IV NAUSEA/VOMITING Last administered on 07/28/18at 12:12; Admin Dose 4 MG; Start 07/04/18 at 18:30 Docusate Sodium (Colace) 100 mg Q12H PRN PO .CONSTIPATION; Start 07/04/18 at 18:30 Albuterol (Proventil 0.083% (Neb)) 2.5 mg Q4H RESP THERAPY PRN HHN SHORTNESS OF BREATH; Start 07/04/18 at 18:30 Metoclopramide HCl (Reglan) 5 mg Q6H PRN IV NAUSEA Last administered on 08/02/18 05:22; Admin Dose 5 MG; Start 07/05/18 at 10:00 Midodrine (Proamatine) 10 mg TID PO Last administered on 08/01/18at 20:33; Admin Dose 10 MG; Start 07/06/18 at 09:00 Albuterol (Ventolin Hfa) 2 puff Q4 INH Last administered on 08/02/18at 05:18; Admin Dose 2 PUFF; Start 07/06/18 at 04:30 Ondansetron HCl (Zofran Odt) 4 mg Q6H PRN ODT NAUSEA AND/OR VOMITING Last administered on 08/01/18 03:37; Admin Dose 4 MG; Start 07/06/18 at 04:00 Pantoprazole (Protonix Tab) 40 mg BID@0600,1800 PO Last administered on 08/02/18 05:26; Admin Dose 40 MG; Start 07/06/18 at 06:00 Rifaximin (Xifaxan) 200 mg TID PO Last administered on 08/01/18 20:33; Admin Dose 200 MG; Start 07/09/18 at 21:00 Acetaminophen/ Hydrocodone Bitart ([place] (5/325)) 1 tab Q6H PRN PO MODERATE PAIN LEVEL 4-6 Last administered on 07/30/18 05:42; Admin Dose 1 TAB; Start 07/14/18 at 17:30 Sodium Hypochlorite (Dakin'S (Dilute )) 1 applic DAILY IRR Last administered on 07/25/18 08:27; Admin Dose 1 APPLIC; Start 07/15/18 at 23:45 Simethicone (Mylicon) 80 mg Q6H PRN PO DISTENSION/GAS/BLOATING Last administered on 08/01/18 17:39; Admin Dose 80 MG; Start 07/16/18 at 15:30 Lactulose (Enulose) 10 gm DAILY PO Last administered on 08/01/18 08:05; Admin Dose 10 GM; Start 07/19/18 at 09:00 Spironolactone (Aldactone) 25 mg BID DIURETICS PO Last administered on 08/01/18 18:59; Admin Dose 25 MG; Start 07/19/18 at 13:00 Vancomycin HCl (Vancomycin Oral Syringe) 125 mg Q6 PO Last administered on 08/02/18 05:27; Admin Dose 125 MG; Start 07/20/18 at 18:00 Diphenhydramine HCl (Benadryl) 25 mg Q8H PRN IV PRURITUS/ITCHING Last administered on 07/20/18 20:21; Admin Dose 25 MG; Start 07/20/18 at 18:30 Morphine Sulfate (morphine) 6 mg Q4H PRN PO SEVERE PAIN LEVEL 7-10 Last administered on 08/02/18 05:56; Admin Dose 6 MG; Start 07/20/18 at 23:30 Trazodone HCl (Desyrel) 50 mg HS PRN PO insomnia Last administered on 08/01/18 23:42; Admin Dose 50 MG; Start 07/21/18 at 23:30 Nystatin (Nystatin Powder) 1 applic BID TOP Last administered on 08/01/18 20:38; Admin Dose 1 APPLIC; Start 07/25/18 at 21:00 Nystatin (Nystatin Oint) 1 applic TID TOP Last administered on 08/01/18 20:38; Admin Dose 1 APPLIC; Start 07/27/18 at 21:00 Hydromorphone HCl (Dilaudid) 1 mg Q3H PRN IV SEVERE PAIN LEVEL 7-10 Last administered on 08/01/18 08:59; Admin Dose 1 MG; Start 07/30/18 at 13:00 SARA EISENBERG Aug 02, 2018 09:46
[2018-08-02] MEDS: ONDANSETRON 4 MG INJ IV PRN ×2 (09:47→17:28)
[2018-08-02] MEDS: MIDODRINE 5 MG TAB PO SCH ×3 (09:47→23:50)
[2018-08-02] MEDS: RIFAXIMIN 200 MG TAB PO SCH ×3 (09:47→21:27)
[2018-08-02] MEDS: SODIUM HYPOCHLORITE (1/40) 1 APPLIC BTL IRR SCH (09:49)
[2018-08-02] MEDS: NYSTATIN 15 GM OINT TOP SCH ×3 (09:50→21:26)
[2018-08-02] MEDS: NYSTATIN 30 GM POWDER BTL TOP SCH ×2 (09:50→21:26)
[2018-08-02] MEDS: HYDROCODONE/APAP (5/325) TAB PO PRN (12:24)
[2018-08-02 14:00] VITALS: BP 97/53; PULSE 89; RESP 18
--- NOTE | 2018-08-02 15:04 | CONS ---
Assessment/Plan Assessment/Plan Hospital Course (Demo Recall) Patient is alert feels good, looks comfortable, no fevers Microbiology: Blood culture grew Klebsiella pneumonia on July 04 susceptible to Cipro and Levaquin, stool for C. difficile positive, urine culture negative MRSA swab negative, L foot wound culture grew Klebsiella pneumoniae susceptible to ming quinolones and staph species Antimicrobials: PO Vanco Physical examination: Chronically ill-appearing middle-aged woman who is in no distress. Head atraumatic normocephalic sclera nonicteric vehicle mucosa dry neck is supple chest rise symmetrical breath sounds diminished at bases. Heart: S1-S2. Abdomen soft bowel sounds present extremities with bilateral edema, left lower extremity dressing intact Assessment: 1. S/p sepsis with Klebsiella pneumonia bacteremia likely secondary to SBP vs #2 2. Left lower extremity abscess/ cellulitis==> neg OM, s/p i/d 07/18/18 with wound vac 3. C. difficile colitis 4. Alcoholic liver cirrhosis 5. Recurrent ascites 6. Anemia and thrombocytopenia Plan: Remains stable, continue oral vancomycin, wound care per podiatry recommendations Consultation Date/Type/Reason Admit Date/Time Jul 04, 2018 at 14:22 Initial Consult Date 07/07/18 Type of Consult id Requesting Provider: ANA SPICER Date/Time of Note DATE: 08/02/18 TIME: 15:04 Exam/Review of Systems Exam Vitals Vital Signs Date Temp Pulse Resp B/P (MAP) Pulse Ox O2 O2 Flow FiO2 Time Delivery Rate 08/02/18 82 94/52 (66) 09:35 08/02/18 98.8 18 94 Room Air 07:00 Intake and Output 08/01/18 08/01/18 08/02/18 1414:59 22:59 06:59 IntakeIntake Total 320 ml 360 ml OutputOutput Total 650 ml 1000 ml BalanceBalance 320 ml -290 ml -1000 ml Results Result Diagram: 08/01/18 0525 08/02/18 0630 Results 24hrs Laboratory Tests Test 08/02/18 06:30 08/02/18 10:37 Sodium Level 135 Potassium Level 3.8 Chloride Level 106 Carbon Dioxide Level 25 Anion Gap 4 L Blood Urea Nitrogen 9 Creatinine 0.40 L Est Glomerular Filtrat Rate mL/min > 60 Glucose Level 88 Calcium Level 7.5 L Total Bilirubin 5.4 H Direct Bilirubin 0.40 H Indirect Bilirubin 5.0 H Aspartate Amino Transf (AST/SGOT) 61 H Alanine Aminotransferase (ALT/SGPT) 48 Alkaline Phosphatase 116 Total Protein 4.6 L Albumin 2.0 L Globulin 2.60 Albumin/Globulin Ratio 0.76 Prothrombin Time 27.2 H Prothrombin Time Ratio 2.1 INR International Normalized Ratio 2.52 Medications Medication Current Medications IV Flush (NS 3 ml) 3 ml PER PROTOCOL IV Last administered on 07/26/18 20:08; Admin Dose 3 ML; Start 07/04/18 at 18:30 Ondansetron HCl (Zofran Inj) 4 mg Q6H PRN IV NAUSEA/VOMITING Last administered on 08/02/18 09:47; Admin Dose 4 MG; Start 07/04/18 at 18:30 Docusate Sodium (Colace) 100 mg Q12H PRN PO .CONSTIPATION; Start 07/04/18 at 18:30 Albuterol (Proventil 0.083% (Neb)) 2.5 mg Q4H RESP THERAPY PRN HHN SHORTNESS OF BREATH; Start 07/04/18 at 18:30 Metoclopramide HCl (Reglan) 5 mg Q6H PRN IV NAUSEA Last administered on 14:56; Admin Dose 5 MG; Start 07/05/18 at 10:00 Midodrine (Proamatine) 10 mg TID PO Last administered on 08/02/18 12:24; Admin Dose 10 MG; Start 07/06/18 at 09:00 Albuterol (Ventolin Hfa) 2 puff Q4 INH Last administered on 08/02/18 12:25; Admin Dose 2 PUFF; Start 07/06/18 at 04:30 Ondansetron HCl (Zofran Odt) 4 mg Q6H PRN ODT NAUSEA AND/OR VOMITING Last administered on 08/01/18 03:37; Admin Dose 4 MG; Start 07/06/18 at 04:00 Pantoprazole (Protonix Tab) 40 mg BID@0600,1800 PO Last administered on 08/02/18 05:26; Admin Dose 40 MG; Start 07/06/18 at 06:00 Rifaximin (Xifaxan) 200 mg TID PO Last administered on 08/02/18 12:24; Admin Dose 200 MG; Start 07/09/18 at 21:00 Acetaminophen/ Hydrocodone Bitart ([place] (5/325)) 1 tab Q6H PRN PO MODERATE PAIN LEVEL 4-6 Last administered on 08/02/18 12:24; Admin Dose 1 TAB; Start 07/14/18 at 17:30 Sodium Hypochlorite (Dakin'S (Dilute )) 1 applic DAILY IRR Last administered on 08/02/18 09:49; Admin Dose 1 APPLIC; Start 07/15/18 at 23:45 Simethicone (Mylicon) 80 mg Q6H PRN PO DISTENSION/GAS/BLOATING Last administered on 08/02/18 09:46; Admin Dose 80 MG; Start 07/16/18 at 15:30 Lactulose (Enulose) 10 gm DAILY PO Last administered on 08/02/18 09:46; Admin Dose 10 GM; Start 07/19/18 at 09:00 Spironolactone (Aldactone) 25 mg BID DIURETICS PO Last administered on 08/01/18 18:59; Admin Dose 25 MG; Start 07/19/18 at 13:00 Vancomycin HCl (Vancomycin Oral Syringe) 125 mg Q6 PO Last administered on 08/02/18 12:23; Admin Dose 125 MG; Start 07/20/18 at 18:00 Diphenhydramine HCl (Benadryl) 25 mg Q8H PRN IV PRURITUS/ITCHING Last administered on 07/20/18 20:21; Admin Dose 25 MG; Start 07/20/18 at 18:30 Morphine Sulfate (morphine) 6 mg Q4H PRN PO SEVERE PAIN LEVEL 7-10 Last administered on 08/02/18 05:56; Admin Dose 6 MG; Start 07/20/18 at 23:30 Trazodone HCl (Desyrel) 50 mg HS PRN PO insomnia Last administered on 08/01/18 23:42; Admin Dose 50 MG; Start 07/21/18 at 23:30 Nystatin (Nystatin Powder) 1 applic BID TOP Last administered on 08/02/18 09:50; Admin Dose 1 APPLIC; Start 07/25/18 at 21:00 Nystatin (Nystatin Oint) 1 applic TID TOP Last administered on 08/02/18 12:25; Admin Dose 1 APPLIC; Start 07/27/18 at 21:00 Hydromorphone HCl (Dilaudid) 1 mg Q3H PRN IV SEVERE PAIN LEVEL 7-10 Last administered on 08/02/18at 14:56; Admin Dose 1 MG; Start 07/30/18 at 13:00 EMA MUELLER NP Aug 02, 2018 15:04
--- NOTE | 2018-08-02 16:04 | PN ---
Date/Time of Note Date/Time of Note DATE: 08/02/18 TIME: 16:03 Assessment/Plan VTE Prophylaxis Risk score (from Nsg)>0 risk: 6 Pharmacological prophylaxis: NA/contraindicated Pharm contraindication: liver dx Lines/Catheters IV Catheter Type (from Nrsg): Mid Line Urinary Cath still in place: No Assessment/Plan Hospital Course 1. Left foot wound s/p debridement with wound VAC- stable - s/p skin allograft and wound vac placement 07/27/18 - pain control effective - MRI foot shows no evidence of OM - Podiatry on board and appreciate recommendations. continue wound care, IV antibiotics and wound vac - Continue current antibiotics 2. SBP with klebsiella bacteremia: - Continue Abx course per ID 3. Cirrhosis with ascites - Status post paracentesis x3 - Continue Aldactone - Continue rifaximin/lactulose - has follow up with Dr. Gómez as outpatient 4. Anemia - most likely 2/2 liver dz 5. Acute kidney injury likely secondary to hemodynamics and intravascular volume depletion-resolved - Nephrology consultation appreciated 6. Anemia of chronic disease - stable 7. C Diff diarrhea - s/p PO vanco course - resolving 8. Disposition - Continue current care. Pending placement to SNF for wound care, wound vac, and IV antibiotics - May need another paracentesis prior to discharge Result Diagram: 08/01/18 0525 08/02/18 0630 Results 24hrs Laboratory Tests Test 08/02/18 06:30 08/02/18 10:37 Sodium Level 135 Potassium Level 3.8 Chloride Level 106 Carbon Dioxide Level 25 Anion Gap 4 L Blood Urea Nitrogen 9 Creatinine 0.40 L Est Glomerular Filtrat Rate mL/min > 60 Glucose Level 88 Calcium Level 7.5 L Total Bilirubin 5.4 H Direct Bilirubin 0.40 H Indirect Bilirubin 5.0 H Aspartate Amino Transf (AST/SGOT) 61 H Alanine Aminotransferase (ALT/SGPT) 48 Alkaline Phosphatase 116 Total Protein 4.6 L Albumin 2.0 L Globulin 2.60 Albumin/Globulin Ratio 0.76 Prothrombin Time 27.2 H Prothrombin Time Ratio 2.1 INR International Normalized Ratio 2.52 Subjective 24 Hr Interval Summary Constitutional: no complaints Exam/Review of Systems Exam Vitals Vital Signs Date Temp Pulse Resp B/P (MAP) Pulse Ox O2 O2 Flow FiO2 Time Delivery Rate 08/02/18 99.2 89 18 97/53 (68) 97 Room Air 14:00 Intake and Output 08/01/18 08/01/18 08/02/18 1515:00 23:00 07:00 IntakeIntake Total 320 ml 360 ml OutputOutput Total 650 ml 1000 ml BalanceBalance 320 ml -290 ml -1000 ml Constitutional: alert, oriented Respiratory: clear to auscultation Cardiovascular: regular rate and rhythm Gastrointestinal: soft; No distended Musculoskeletal: nl extremities to inspection Results Results 24hrs Laboratory Tests Test 08/02/18 06:30 08/02/18 10:37 Sodium Level 135 Potassium Level 3.8 Chloride Level 106 Carbon Dioxide Level 25 Anion Gap 4 L Blood Urea Nitrogen 9 Creatinine 0.40 L Est Glomerular Filtrat Rate mL/min > 60 Glucose Level 88 Calcium Level 7.5 L Total Bilirubin 5.4 H Direct Bilirubin 0.40 H Indirect Bilirubin 5.0 H Aspartate Amino Transf (AST/SGOT) 61 H Alanine Aminotransferase (ALT/SGPT) 48 Alkaline Phosphatase 116 Total Protein 4.6 L Albumin 2.0 L Globulin 2.60 Albumin/Globulin Ratio 0.76 Prothrombin Time 27.2 H Prothrombin Time Ratio 2.1 INR International Normalized Ratio 2.52 Medications Medication Current Medications IV Flush (NS 3 ml) 3 ml PER PROTOCOL IV Last administered on 07/26/18at 20:08; Admin Dose 3 ML; Start 07/04/18 at 18:30 Ondansetron HCl (Zofran Inj) 4 mg Q6H PRN IV NAUSEA/VOMITING Last administered on 08/02/18at 09:47; Admin Dose 4 MG; Start 07/04/18 at 18:30 Docusate Sodium (Colace) 100 mg Q12H PRN PO .CONSTIPATION; Start 07/04/18 at 18:30 Albuterol (Proventil 0.083% (Neb)) 2.5 mg Q4H RESP THERAPY PRN HHN SHORTNESS OF BREATH; Start 07/04/18 at 18:30 Metoclopramide HCl (Reglan) 5 mg Q6H PRN IV NAUSEA Last administered on 08/02/18at 14:56; Admin Dose 5 MG; Start 07/05/18 at 10:00 Midodrine (Proamatine) 10 mg TID PO Last administered on 08/02/18at 12:24; Admin Dose 10 MG; Start 07/06/18 at 09:00 Albuterol (Ventolin Hfa) 2 puff Q4 INH Last administered on 08/02/18 12:25; Admin Dose 2 PUFF; Start 07/06/18 at 04:30 Ondansetron HCl (Zofran Odt) 4 mg Q6H PRN ODT NAUSEA AND/OR VOMITING Last administered on 08/01/18 03:37; Admin Dose 4 MG; Start 07/06/18 at 04:00 Pantoprazole (Protonix Tab) 40 mg BID@0600,1800 PO Last administered on 08/02/18 05:26; Admin Dose 40 MG; Start 07/06/18 at 06:00 Rifaximin (Xifaxan) 200 mg TID PO Last administered on 08/02/18 12:24; Admin Dose 200 MG; Start 07/09/18 at 21:00 Acetaminophen/ Hydrocodone Bitart ([place] (5/325)) 1 tab Q6H PRN PO MODERATE PAIN LEVEL 4-6 Last administered on 08/02/18 12:24; Admin Dose 1 TAB; Start 07/14/18 at 17:30 Sodium Hypochlorite ([place] (Dilute 1/40)) 1 applic DAILY IRR Last administered on 08/02/18 09:49; Admin Dose 1 APPLIC; Start 07/15/18 at 23:45 Simethicone (Mylicon) 80 mg Q6H PRN PO DISTENSION/GAS/BLOATING Last administered on 08/02/18 09:46; Admin Dose 80 MG; Start 07/16/18 at 15:30 Lactulose (Enulose) 10 gm DAILY PO Last administered on 08/02/18 09:46; Admin Dose 10 GM; Start 07/19/18 at 09:00 Spironolactone (Aldactone) 25 mg BID DIURETICS PO Last administered on 08/01/18 18:59; Admin Dose 25 MG; Start 07/19/18 at 13:00 Vancomycin HCl (Vancomycin Oral Syringe) 125 mg Q6 PO Last administered on 08/02/18 12:23; Admin Dose 125 MG; Start 07/20/18 at 18:00 Diphenhydramine HCl (Benadryl) 25 mg Q8H PRN IV PRURITUS/ITCHING Last administered on 07/20/18 20:21; Admin Dose 25 MG; Start 07/20/18 at 18:30 Morphine Sulfate (morphine) 6 mg Q4H PRN PO SEVERE PAIN LEVEL 7-10 Last administered on 08/02/18 05:56; Admin Dose 6 MG; Start 07/20/18 at 23:30 Trazodone HCl (Desyrel) 50 mg HS PRN PO insomnia Last administered on 08/01/18 23:42; Admin Dose 50 MG; Start 07/21/18 at 23:30 Nystatin (Nystatin Powder) 1 applic BID TOP Last administered on 08/02/18 09:50; Admin Dose 1 APPLIC; Start 07/25/18 at 21:00 Nystatin (Nystatin Oint) 1 applic TID TOP Last administered on 08/02/18 12:25; Admin Dose 1 APPLIC; Start 07/27/18 at 21:00 Hydromorphone HCl (Dilaudid) 1 mg Q3H PRN IV SEVERE PAIN LEVEL 7-10 Last administered on 08/02/18 14:56; Admin Dose 1 MG; Start 07/30/18 at 13:00 ANA SPICER Aug 02, 2018 16:04
[2018-08-02 21:28] VITALS: BP 107/51; PULSE 92; RESP 18
[2018-08-02] MEDS: traZODone 50 MG TAB PO PRN (22:32)
[2018-08-03] MEDS: ALBUTEROL HFA 8 GM INHALER INH SCH ×6 (00:56→20:44)
[2018-08-03] MEDS: HYDROmorphONE 1 MG/ML SYG IV PRN ×6 (00:56→20:44)
[2018-08-03] MEDS: ONDANSETRON 4 MG INJ IV PRN ×3 (01:02→20:44)
[2018-08-03 02:18] VITALS: BP 109/56; PULSE 85; RESP 16
[2018-08-03] MEDS: VANCOMYCIN HCL 250 MG/5ML POSYG PO SCH ×3 (05:51→17:14)
[2018-08-03] MEDS: PANTOPRAZOLE (EC) 40 MG TAB PO SCH ×2 (05:52→17:14)
[2018-08-03] MEDS: SPIRONOLACTONE 25 MG TAB PO SCH ×2 (05:53→17:14)
[2018-08-03] MEDS: METOCLOPRAMIDE 10 MG INJ IV PRN ×3 (06:01→18:33)
[2018-08-03 08:00] VITALS: BP 102/54; PULSE 85; RESP 18
[2018-08-03] MEDS: MIDODRINE 5 MG TAB PO SCH ×3 (09:25→20:43)
[2018-08-03] MEDS: RIFAXIMIN 200 MG TAB PO SCH ×3 (09:26→20:43)
[2018-08-03] MEDS: SODIUM HYPOCHLORITE (1/40) 1 APPLIC BTL IRR SCH (09:27)
[2018-08-03] MEDS: NYSTATIN 15 GM OINT TOP SCH ×3 (09:27→21:51)
[2018-08-03] MEDS: NYSTATIN 30 GM POWDER BTL TOP SCH ×2 (09:27→21:51)
[2018-08-03] MEDS: LACTULOSE 30ML CUP PO SCH (09:27)
[2018-08-03] MEDS: PHYTONADIONE 10 MG/ML INJ SC SCH (10:11)
--- NOTE | 2018-08-03 11:33 | CONS ---
Assessment/Plan Assessment/Plan Hospital Course (Demo Recall) No events per report, looks comfortable, no fevers Microbiology: Blood culture grew Klebsiella pneumonia on July 04 susceptible to Cipro and Levaquin, stool for C. difficile positive, urine culture negative MRSA swab negative, L foot wound culture grew Klebsiella pneumoniae susceptible to ming quinolones and staph species Antimicrobials: PO Vanco Physical examination: Chronically ill-appearing middle-aged woman who is in no distress. Head atraumatic normocephalic sclera nonicteric vehicle mucosa dry neck is supple chest rise symmetrical breath sounds diminished at bases. Heart: S1-S2. Abdomen soft bowel sounds present extremities with bilateral edema, left lower extremity dressing intact Assessment: 1. S/p sepsis with Klebsiella pneumonia bacteremia likely secondary to SBP vs #2 2. Left lower extremity abscess/ cellulitis==> neg OM, s/p i/d 07/18/18 with wound vac 3. C. difficile colitis 4. Alcoholic liver cirrhosis 5. Recurrent ascites 6. Anemia and thrombocytopenia Plan: Remains stable, continue oral vancomycin, wound care per podiatry recommendations Consultation Date/Type/Reason Admit Date/Time Jul 04, 2018 at 14:22 Initial Consult Date 07/07/18 Type of Consult id Requesting Provider: ANA SPICER Date/Time of Note DATE: 08/03/18 TIME: 11:32 Exam/Review of Systems Exam Vitals Vital Signs Date Temp Pulse Resp B/P (MAP) Pulse Ox O2 O2 Flow FiO2 Time Delivery Rate 08/03/18 97.8 85 18 102/54 96 08:00 (70) 08/02/18 Room Air 14:00 Intake and Output 08/02/18 08/02/18 08/03/18 1515:00 23:00 07:00 IntakeIntake Total 1220 ml 50 ml OutputOutput Total 600 ml 300 ml BalanceBalance 620 ml -250 ml Results Result Diagram: 08/03/1852208/03/18522 Results 24hrs Laboratory Tests Test 08/03/18 05:23 White Blood Count 6.6 # Red Blood Count 2.68 L Hemoglobin 8.8 L Hematocrit 27.3 L Mean Corpuscular Volume 101.9 H Mean Corpuscular Hemoglobin 32.8 Mean Corpuscular Hemoglobin Concent 32.2 Red Cell Distribution Width 18.7 H Platelet Count 42 L Mean Platelet Volume 9.9 Immature Granulocytes % 0.800 H Neutrophils % 63.7 Lymphocytes % 19.3 Monocytes % 14.2 H Eosinophils % 1.5 Basophils % 0.5 Nucleated Red Blood Cells % 0.0 Immature Granulocytes # 0.050 H Neutrophils # 4.2 Lymphocytes # 1.3 Monocytes # 0.9 Eosinophils # 0.1 Basophils # 0.0 Nucleated Red Blood Cells # 0.0 Sodium Level 134 L Potassium Level 3.8 Chloride Level 103 Carbon Dioxide Level 25 Anion Gap 6 Blood Urea Nitrogen 10 Creatinine 0.38 L Est Glomerular Filtrat Rate mL/min > 60 Glucose Level 95 Calcium Level 7.4 L Total Bilirubin 5.1 H Direct Bilirubin 0.40 H Indirect Bilirubin 4.7 H Aspartate Amino Transf (AST/SGOT) 47 H Alanine Aminotransferase (ALT/SGPT) 48 Alkaline Phosphatase 134 H Total Protein 4.7 L Albumin 1.9 L Globulin 2.80 Albumin/Globulin Ratio 0.67 Medications Medication Current Medications IV Flush (NS 3 ml) 3 ml PER PROTOCOL IV Last administered on 07/26/18at 20:08; Admin Dose 3 ML; Start 07/04/18 at 18:30 Ondansetron HCl (Zofran Inj) 4 mg Q6H PRN IV NAUSEA/VOMITING Last administered on 08/03/18at 09:26; Admin Dose 4 MG; Start 07/04/18 at 18:30 Docusate Sodium (Colace) 100 mg Q12H PRN PO .CONSTIPATION; Start 07/04/18 at 18:30 Albuterol (Proventil 0.083% (Neb)) 2.5 mg Q4H RESP THERAPY PRN HHN SHORTNESS OF BREATH; Start 07/04/18 at 18:30 Metoclopramide HCl (Reglan) 5 mg Q6H PRN IV NAUSEA Last administered on 08/03/18at 06:01; Admin Dose 5 MG; Start 07/05/18 at 10:00 Midodrine (Proamatine) 10 mg TID PO Last administered on 08/03/18at 09:25; Admin Dose 10 MG; Start 07/06/18 at 09:00 Albuterol (Ventolin Hfa) 2 puff Q4 INH Last administered on 08/03/18at 09:28; Admin Dose 2 PUFF; Start 07/06/18 at 04:30 Ondansetron HCl (Zofran Odt) 4 mg Q6H PRN ODT NAUSEA AND/OR VOMITING Last administered on 08/01/18 03:37; Admin Dose 4 MG; Start 07/06/18 at 04:00 Pantoprazole (Protonix Tab) 40 mg BID@0600,1800 PO Last administered on 08/03/18 05:52; Admin Dose 40 MG; Start 07/06/18 at 06:00 Rifaximin (Xifaxan) 200 mg TID PO Last administered on 08/03/18 09:26; Admin Dose 200 MG; Start 07/09/18 at 21:00 Acetaminophen/ Hydrocodone Bitart ([place] (5/325)) 1 tab Q6H PRN PO MODERATE PAIN LEVEL 4-6 Last administered on 08/02/18 12:24; Admin Dose 1 TAB; Start 07/14/18 at 17:30 Sodium Hypochlorite ([place]akin'S (Dilute )) 1 applic DAILY IRR Last administered on 08/03/18 09:27; Admin Dose 1 APPLIC; Start 07/15/18 at 23:45 Simethicone (Mylicon) 80 mg Q6H PRN PO DISTENSION/GAS/BLOATING Last administered on 08/03/18 09:26; Admin Dose 80 MG; Start 07/16/18 at 15:30 Lactulose (Enulose) 10 gm DAILY PO Last administered on 08/03/18 09:27; Admin Dose 10 GM; Start 07/19/18 at 09:00 Spironolactone (Aldactone) 25 mg BID DIURETICS PO Last administered on 08/03/18 05:53; Admin Dose 25 MG; Start 07/19/18 at 13:00 Vancomycin HCl (Vancomycin Oral Syringe) 125 mg Q6 PO Last administered on 08/03/18 05:51; Admin Dose 125 MG; Start 07/20/18 at 18:00 Diphenhydramine HCl (Benadryl) 25 mg Q8H PRN IV PRURITUS/ITCHING Last administered on 07/20/18 20:21; Admin Dose 25 MG; Start 07/20/18 at 18:30 Morphine Sulfate (morphine) 6 mg Q4H PRN PO SEVERE PAIN LEVEL 7-10 Last administered on 08/02/18 05:56; Admin Dose 6 MG; Start 07/20/18 at 23:30 Trazodone HCl (Desyrel) 50 mg HS PRN PO insomnia Last administered on 08/02/18 22:32; Admin Dose 50 MG; Start 07/21/18 at 23:30 Nystatin (Nystatin Powder) 1 applic BID TOP Last administered on 08/03/18 09:27; Admin Dose 1 APPLIC; Start 07/25/18 at 21:00 Nystatin (Nystatin Oint) 1 applic TID TOP Last administered on 08/03/18 09:27; Admin Dose 1 APPLIC; Start 07/27/18 at 21:00 Hydromorphone HCl (Dilaudid) 1 mg Q3H PRN IV SEVERE PAIN LEVEL 7-10 Last administered on 08/03/18 09:26; Admin Dose 1 MG; Start 07/30/18 at 13:00 Phytonadione (Vitamin K) 10 mg QAM SC Last administered on 08/03/18 10:11; Admin Dose 10 MG; Start 08/03/18 at 09:00; Stop 08/06/18 at 08:59 MEA MUELLER [employer] Aug 03, 2018 11:33
[2018-08-03 14:00] VITALS: BP 117/59; PULSE 83; RESP 18
[2018-08-03] MEDS ORDERED: PEG/ELECTROLYTES 4L BTL PO ONE ×2 (14:00→18:00)
[2018-08-03] MEDS ORDERED: BISACODYL (EC) 5 MG TAB PO ONE ×2 (14:00→20:00)
--- NOTE | 2018-08-03 14:46 | PN ---
Date/Time of Note Date/Time of Note DATE: 08/03/18 TIME: 14:45 Assessment/Plan VTE Prophylaxis Risk score (from Nsg)>0 risk: 5 Pharmacological prophylaxis: NA/contraindicated Pharm contraindication: liver dx Lines/Catheters IV Catheter Type (from Nrsg): Mid Line Urinary Cath still in place: No Assessment/Plan Hospital Course 1. Left foot wound s/p debridement with wound VAC- stable - s/p skin allograft and wound vac placement 07/27/18 - pain control effective - MRI foot shows no evidence of OM - Podiatry on board and appreciate recommendations. continue wound care, IV antibiotics and wound vac - Continue current antibiotics 2. SBP with klebsiella bacteremia: - Continue Abx course per ID 3. Cirrhosis with ascites - Status post paracentesis x3 - Continue Aldactone - Continue rifaximin/lactulose - has follow up with Dr. Gómez as outpatient may have a preop eval with endoscopy while in-house 4. Anemia - most likely 2/2 liver dz 5. Acute kidney injury likely secondary to hemodynamics and intravascular volume depletion-resolved - Nephrology consultation appreciated 6. Anemia of chronic disease - stable 7. C Diff diarrhea - s/p PO vanco course - resolving 8. Disposition - Continue current care. Pending placement to SNF for wound care, wound vac, and IV antibiotics - May need another paracentesis prior to discharge Result Diagram: 08/03/1852208/03/18 0523 Results 24hrs Laboratory Tests Test 08/03/18 05:23 White Blood Count 6.6 # Red Blood Count 2.68 L Hemoglobin 8.8 L Hematocrit 27.3 L Mean Corpuscular Volume 101.9 H Mean Corpuscular Hemoglobin 32.8 Mean Corpuscular Hemoglobin Concent 32.2 Red Cell Distribution Width 18.7 H Platelet Count 42 L Mean Platelet Volume 9.9 Immature Granulocytes % 0.800 H Neutrophils % 63.7 Lymphocytes % 19.3 Monocytes % 14.2 H Eosinophils % 1.5 Basophils % 0.5 Nucleated Red Blood Cells % 0.0 Immature Granulocytes # 0.050 H Neutrophils # 4.2 Lymphocytes # 1.3 Monocytes # 0.9 Eosinophils # 0.1 Basophils # 0.0 Nucleated Red Blood Cells # 0.0 Sodium Level 134 L Potassium Level 3.8 Chloride Level 103 Carbon Dioxide Level 25 Anion Gap 6 Blood Urea Nitrogen 10 Creatinine 0.38 L Est Glomerular Filtrat Rate mL/min > 60 Glucose Level 95 Calcium Level 7.4 L Total Bilirubin 5.1 H Direct Bilirubin 0.40 H Indirect Bilirubin 4.7 H Aspartate Amino Transf (AST/SGOT) 47 H Alanine Aminotransferase (ALT/SGPT) 48 Alkaline Phosphatase 134 H Total Protein 4.7 L Albumin 1.9 L Globulin 2.80 Albumin/Globulin Ratio 0.67 Subjective 24 Hr Interval Summary Constitutional: no complaints Exam/Review of Systems Exam Vitals Vital Signs Date Temp Pulse Resp B/P (MAP) Pulse Ox O2 O2 Flow FiO2 Time Delivery Rate 08/03/18 97.8 85 18 102/54 96 08:00 (70) 08/02/18 Room Air 14:00 Intake and Output 08/02/18 08/02/18 08/03/18 1515:00 23:00 07:00 IntakeIntake Total 1220 ml 50 ml OutputOutput Total 600 ml 300 ml BalanceBalance 620 ml -250 ml Constitutional: alert, oriented Respiratory: clear to auscultation Cardiovascular: regular rate and rhythm Gastrointestinal: soft; No distended Musculoskeletal: nl extremities to inspection Results Results 24hrs Laboratory Tests Test 08/03/18 05:23 White Blood Count 6.6 # Red Blood Count 2.68 L Hemoglobin 8.8 L Hematocrit 27.3 L Mean Corpuscular Volume 101.9 H Mean Corpuscular Hemoglobin 32.8 Mean Corpuscular Hemoglobin Concent 32.2 Red Cell Distribution Width 18.7 H Platelet Count 42 L Mean Platelet Volume 9.9 Immature Granulocytes % 0.800 H Neutrophils % 63.7 Lymphocytes % 19.3 Monocytes % 14.2 H Eosinophils % 1.5 Basophils % 0.5 Nucleated Red Blood Cells % 0.0 Immature Granulocytes # 0.050 H Neutrophils # 4.2 Lymphocytes # 1.3 Monocytes # 0.9 Eosinophils # 0.1 Basophils # 0.0 Nucleated Red Blood Cells # 0.0 Sodium Level 134 L Potassium Level 3.8 Chloride Level 103 Carbon Dioxide Level 25 Anion Gap 6 Blood Urea Nitrogen 10 Creatinine 0.38 L Est Glomerular Filtrat Rate mL/min > 60 Glucose Level 95 Calcium Level 7.4 L Total Bilirubin 5.1 H Direct Bilirubin 0.40 H Indirect Bilirubin 4.7 H Aspartate Amino Transf (AST/SGOT) 47 H Alanine Aminotransferase (ALT/SGPT) 48 Alkaline Phosphatase 134 H Total Protein 4.7 L Albumin 1.9 L Globulin 2.80 Albumin/Globulin Ratio 0.67 Medications Medication Current Medications IV Flush (NS 3 ml) 3 ml PER PROTOCOL IV Last administered on 07/26/18 20:08; Admin Dose 3 ML; Start 07/04/18 at 18:30 Ondansetron HCl (Zofran Inj) 4 mg Q6H PRN IV NAUSEA/VOMITING Last administered on 08/03/18 09:26; Admin Dose 4 MG; Start 07/04/18 at 18:30 Docusate Sodium (Colace) 100 mg Q12H PRN PO .CONSTIPATION; Start 07/04/18 at 18:30 Albuterol (Proventil 0.083% (Neb)) 2.5 mg Q4H RESP THERAPY PRN HHN SHORTNESS OF BREATH; Start 07/04/18 at 18:30 Metoclopramide HCl (Reglan) 5 mg Q6H PRN IV NAUSEA Last administered on 08/03/18 12:09; Admin Dose 5 MG; Start 07/05/18 at 10:00 Midodrine (Proamatine) 10 mg TID PO Last administered on 08/03/18 13:36; Admin Dose 10 MG; Start 07/06/18 at 09:00 Albuterol (Ventolin Hfa) 2 puff Q4 INH Last administered on 08/03/18 12:10; Admin Dose 2 PUFF; Start 07/06/18 at 04:30 Ondansetron HCl (Zofran Odt) 4 mg Q6H PRN ODT NAUSEA AND/OR VOMITING Last administered on 08/01/18 03:37; Admin Dose 4 MG; Start 07/06/18 at 04:00 Pantoprazole (Protonix Tab) 40 mg BID@0600,1800 PO Last administered on 08/03/18 05:52; Admin Dose 40 MG; Start 07/06/18 at 06:00 Rifaximin (Xifaxan) 200 mg TID PO Last administered on 08/03/18 12:09; Admin Dose 200 MG; Start 07/09/18 at 21:00 Acetaminophen/ Hydrocodone Bitart ([place] (5/325)) 1 tab Q6H PRN PO MODERATE PAIN LEVEL 4-6 Last administered on 08/02/18 12:24; Admin Dose 1 TAB; Start 07/14/18 at 17:30 Sodium Hypochlorite ([place]akin'S (Dilute )) 1 applic DAILY IRR Last administered on 08/03/18 09:27; Admin Dose 1 APPLIC; Start 07/15/18 at 23:45 Simethicone (Mylicon) 80 mg Q6H PRN PO DISTENSION/GAS/BLOATING Last administered on 08/03/18 09:26; Admin Dose 80 MG; Start 07/16/18 at 15:30 Lactulose (Enulose) 10 gm DAILY PO Last administered on 08/03/18 09:27; Admin Dose 10 GM; Start 07/19/18 at 09:00 Spironolactone (Aldactone) 25 mg BID DIURETICS PO Last administered on 08/03/18 05:53; Admin Dose 25 MG; Start 07/19/18 at 13:00 Vancomycin HCl (Vancomycin Oral Syringe) 125 mg Q6 PO Last administered on 08/03/18 12:09; Admin Dose 125 MG; Start 07/20/18 at 18:00 Diphenhydramine HCl (Benadryl) 25 mg Q8H PRN IV PRURITUS/ITCHING Last administered on 07/20/18 20:21; Admin Dose 25 MG; Start 07/20/18 at 18:30 Morphine Sulfate (morphine) 6 mg Q4H PRN PO SEVERE PAIN LEVEL 7-10 Last administered on 08/02/18 05:56; Admin Dose 6 MG; Start 07/20/18 at 23:30 Trazodone HCl (Desyrel) 50 mg HS PRN PO insomnia Last administered on 08/02/18 22:32; Admin Dose 50 MG; Start 07/21/18 at 23:30 Nystatin (Nystatin Powder) 1 applic BID TOP Last administered on 08/03/18 09:27; Admin Dose 1 APPLIC; Start 07/25/18 at 21:00 Nystatin (Nystatin Oint) 1 applic TID TOP Last administered on 08/03/18 12:10; Admin Dose 1 APPLIC; Start 07/27/18 at 21:00 Hydromorphone HCl (Dilaudid) 1 mg Q3H PRN IV SEVERE PAIN LEVEL 7-10 Last administered on 08/03/18 13:35; Admin Dose 1 MG; Start 07/30/18 at 13:00 Phytonadione (Vitamin K) 10 mg QAM SC Last administered on 08/03/18at 10:11; Admin Dose 10 MG; Start 08/03/18 at 09:00; Stop 08/06/18 at 08:59 Polyethylene Glycol/ Electrolytes (Golytely) 2,000 ml 2nd Dose (GI Prep) ONCE PO ; Start 08/03/18 at 18:00; Stop 08/03/18 at 18:01 Bisacodyl (Dulcolax) 10 mg 2nd Dose (GI Prep) ONCE PO ; Start 08/03/18 at 20:00; Stop 08/03/18 at 20:01 ANA SPICER Aug 03, 2018 14:46
--- NOTE | 2018-08-03 16:20 | CONS ---
Assessment/Plan Assessment/Plan Assessment/Plan (Daily) Nausea controlled with anti emetics. So far, ascitic fluid cx are unremarkable. WBC in ascitic fluid wnl. SBP has been in 80s. This am bp noted as 85/49. 1. Alcoholic Cirrhosis of liver. -on transplant list at [facility] -AFP wnl 2. Anemia, no evidence of active bleeding, may be anemia of chronic disease. 3. Pancytopenia secondary to #1 4. 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 5. Cellulitis, status post skin graft and wound VAC. -K. pneumoniae and coagulase neg staph in wound -followed by podiatry 6. Clostridium difficile colitis. US of abd 08/01: 1. Coarse nodular liver consistent with cirrhosis. No focal hepatic masses. 2. Status post cholecystectomy. No biliary duct dilatation. 3. Patent portal vein with pulsatile hepatopetal flow. 4. Suspect portal hypertension as demonstrated by moderate ascites. 5. Moderate size right pleural effusion as well. 6. Increased right renal cortical echogenicity suggest medical renal disease PLAN: Check INR, consider vitamin K and or FFP prior to procedures Pt is only on Vanco PO now Continue rifaximin, Lactulose AFP within normal limit Ultrasound of the liver is also normal no evidence of any tumor EGD and colonoscopy tomorrow Consultation Date/Type/Reason Admit Date/Time Jul 04, 2018 at 14:22 Initial Consult Date 07/07/18 Requesting Provider: ANA SPICER Date/Time of Note DATE: 08/03/18 TIME: 16:19 24 HR Interval Summary Constitutional: no complaints Exam/Review of Systems Exam Vitals Vital Signs Date Temp Pulse Resp B/P (MAP) Pulse Ox O2 O2 Flow FiO2 Time Delivery Rate 08/03/18 98.8 83 18 117/59 96 14:00 (78) 08/02/18 Room Air 14:00 Intake and Output 08/02/18 08/02/18 08/03/18 1414:59 22:59 06:59 IntakeIntake Total 1220 ml 50 ml OutputOutput Total 600 ml 300 ml BalanceBalance 620 ml -250 ml Constitutional: alert, oriented, well developed Psych: no complaints, nl mood/affect Head: normocephalic, atraumatic Eyes: nl conjunctiva, EOMI, nl lids, nl sclera, PERRL ENMT: nl external ears & nose, nl lips & teeth, nl nasal mucosa & septum Neck: supple, non-tender Respiratory: clear to auscultation, normal air movement Cardiovascular: regular rate and rhythm, nl pulses Gastrointestinal: soft, nl liver, spleen, non-tender Musculoskeletal: nl extremities to inspection, nl gait and stance Extremities: normal pulses 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: [employer] II-XII intact, nl mental status, nl speech, nl strength Skin: nl turgor; No rash or lesions Lymph: nl lymph nodes Results Result Diagram: 08/03/1852208/03/18522 Results 24hrs Laboratory Tests Test 08/03/18 05:23 White Blood Count 6.6 # Red Blood Count 2.68 L Hemoglobin 8.8 L Hematocrit 27.3 L Mean Corpuscular Volume 101.9 H Mean Corpuscular Hemoglobin 32.8 Mean Corpuscular Hemoglobin Concent 32.2 Red Cell Distribution Width 18.7 H Platelet Count 42 L Mean Platelet Volume 9.9 Immature Granulocytes % 0.800 H Neutrophils % 63.7 Lymphocytes % 19.3 Monocytes % 14.2 H Eosinophils % 1.5 Basophils % 0.5 Nucleated Red Blood Cells % 0.0 Immature Granulocytes # 0.050 H Neutrophils # 4.2 Lymphocytes # 1.3 Monocytes # 0.9 Eosinophils # 0.1 Basophils # 0.0 Nucleated Red Blood Cells # 0.0 Sodium Level 134 L Potassium Level 3.8 Chloride Level 103 Carbon Dioxide Level 25 Anion Gap 6 Blood Urea Nitrogen 10 Creatinine 0.38 L Est Glomerular Filtrat Rate mL/min > 60 Glucose Level 95 Calcium Level 7.4 L Total Bilirubin 5.1 H Direct Bilirubin 0.40 H Indirect Bilirubin 4.7 H Aspartate Amino Transf (AST/SGOT) 47 H Alanine Aminotransferase (ALT/SGPT) 48 Alkaline Phosphatase 134 H Total Protein 4.7 L Albumin 1.9 L Globulin 2.80 Albumin/Globulin Ratio 0.67 Medications Medication Current Medications IV Flush (NS 3 ml) 3 ml PER PROTOCOL IV Last administered on 07/26/18at 20:08; Admin Dose 3 ML; Start 07/04/18 at 18:30 Ondansetron HCl (Zofran Inj) 4 mg Q6H PRN IV NAUSEA/VOMITING Last administered on 08/03/18at 09:26; Admin Dose 4 MG; Start 07/04/18 at 18:30 Docusate Sodium (Colace) 100 mg Q12H PRN PO .CONSTIPATION; Start 07/04/18 at 18:30 Albuterol (Proventil 0.083% (Neb)) 2.5 mg Q4H RESP THERAPY PRN HHN SHORTNESS OF BREATH; Start 07/04/18 at 18:30 Metoclopramide HCl (Reglan) 5 mg Q6H PRN IV NAUSEA Last administered on 08/03/18 12:09; Admin Dose 5 MG; Start 07/05/18 at 10:00 Midodrine (Proamatine) 10 mg TID PO Last administered on 08/03/18 13:36; Admin Dose 10 MG; Start 07/06/18 at 09:00 Albuterol (Ventolin Hfa) 2 puff Q4 INH Last administered on 08/03/18 12:10; Admin Dose 2 PUFF; Start 07/06/18 at 04:30 Ondansetron HCl (Zofran Odt) 4 mg Q6H PRN ODT NAUSEA AND/OR VOMITING Last administered on 08/01/18 03:37; Admin Dose 4 MG; Start 07/06/18 at 04:00 Pantoprazole (Protonix Tab) 40 mg BID@0600,1800 PO Last administered on 08/03/18 05:52; Admin Dose 40 MG; Start 07/06/18 at 06:00 Rifaximin (Xifaxan) 200 mg TID PO Last administered on 08/03/18 12:09; Admin Dose 200 MG; Start 07/09/18 at 21:00 Acetaminophen/ Hydrocodone Bitart ([place] (5/325)) 1 tab Q6H PRN PO MODERATE PAIN LEVEL 4-6 Last administered on 08/02/18 12:24; Admin Dose 1 TAB; Start 07/14/18 at 17:30 Sodium Hypochlorite (Dakin'S (Dilute 40)) 1 applic DAILY IRR Last administered on 08/03/18 09:27; Admin Dose 1 APPLIC; Start 07/15/18 at 23:45 Simethicone (Mylicon) 80 mg Q6H PRN PO DISTENSION/GAS/BLOATING Last administered on 08/03/18 09:26; Admin Dose 80 MG; Start 07/16/18 at 15:30 Lactulose (Enulose) 10 gm DAILY PO Last administered on 08/03/18 09:27; Admin Dose 10 GM; Start 07/19/18 at 09:00 Spironolactone (Aldactone) 25 mg BID DIURETICS PO Last administered on 08/03/18 05:53; Admin Dose 25 MG; Start 07/19/18 at 13:00 Vancomycin HCl (Vancomycin Oral Syringe) 125 mg Q6 PO Last administered on 08/03/18 12:09; Admin Dose 125 MG; Start 07/20/18 at 18:00 Diphenhydramine HCl (Benadryl) 25 mg Q8H PRN IV PRURITUS/ITCHING Last administered on 07/20/18 20:21; Admin Dose 25 MG; Start 07/20/18 at 18:30 Morphine Sulfate (morphine) 6 mg Q4H PRN PO SEVERE PAIN LEVEL 7-10 Last administered on 08/02/18 05:56; Admin Dose 6 MG; Start 07/20/18 at 23:30 Trazodone HCl (Desyrel) 50 mg HS PRN PO insomnia Last administered on 08/02/18 22:32; Admin Dose 50 MG; Start 07/21/18 at 23:30 Nystatin (Nystatin Powder) 1 applic BID TOP Last administered on 08/03/18 09:27; Admin Dose 1 APPLIC; Start 07/25/18 at 21:00 Nystatin (Nystatin Oint) 1 applic TID TOP Last administered on 08/03/18 12:10; Admin Dose 1 APPLIC; Start 07/27/18 at 21:00 Hydromorphone HCl (Dilaudid) 1 mg Q3H PRN IV SEVERE PAIN LEVEL 7-10 Last administered on 08/03/18 13:35; Admin Dose 1 MG; Start 07/30/18 at 13:00 Phytonadione (Vitamin K) 10 mg QAM SC Last administered on 08/03/18 10:11; Admin Dose 10 MG; Start 08/03/18 at 09:00; Stop 08/06/18 at 08:59 Polyethylene Glycol/ Electrolytes (Golytely) 2,000 ml 2nd Dose (GI Prep) ONCE PO ; Start 08/03/18 at 18:00; Stop 08/03/18 at 18:01 Bisacodyl (Dulcolax) 10 mg 2nd Dose (GI Prep) ONCE PO ; Start 08/03/18 at 20:00; Stop 08/03/18 at 20:01 TRISTIAN NAIDU MD Aug 03, 2018 16:20
--- NOTE | 2018-08-03 17:13 | PREAC ---
Date/Time of Note Date/Time of Note DATE: 08/03/18 TIME: 17:13 Anesthesia Eval and Record Evaluation Time Pre-Procedure Interview DATE: 08/03/18 TIME: 17:13 Age 48 Sex female NPO: 8 hrs Preoperative diagnosis Anemia and cirrhosis of liver Planned procedure EGD / Colonoscopy Past Medical History Past Medical History: Includes Cardio: HTN Hepatic: Hepatitis Heme: Anemia Surgery & Anesthesia Issues No known issue Meds Anticoagulation: No Beta Dipak within 24 hr: No Reason Beta Dipak not given: Pt. not on B-Dipak Active Scripts Hydrocodone/Acetaminophen ([place] 5-325 Tablet) 1 Each Tablet, 1 TAB PO Q6H PRN for PAIN, #7 TAB Prov:RADHA MORALES MD 06/28/18 Ondansetron (Ondansetron Odt) 4 Mg Tab.rapdis, 4 MG PO Q6H PRN for NAUSEA AND/OR VOMITING, #10 TAB Prov:ALEXANDRIA QUIROGA MD 06/14/18 Reported Medications Lactulose (Constulose) 10 Gm/15 Ml Solution, 10 GM PO NEEDED 06/28/18 Albuterol Sulfate* (Ventolin HFA*) 18 Gm Hfa.aer.ad, 2 PUFF INHALATION Q4H, #1 INHALER 06/28/18 Midodrine* (Midodrine*) 5 Mg Tablet, 5 MG PO TID, TAB 06/28/18 Spironolactone* (Aldactone*) 100 Mg Tablet, 100 MG PO BID, #60 TAB 05/15/18 Omeprazole* (Omeprazole*) 20 Mg Capsule.dr, 20 MG PO BID, #60 CAP 05/15/18 Potassium Chloride* (K-Dur*) 20 Meq Tab.prt.sr, 20 MEQ PO BID, TAB.SA 05/15/18 Current Medications IV Flush (NS 3 ml) 3 ml PER PROTOCOL IV Last administered on 07/26/18at 20:08; Admin Dose 3 ML; Start 07/04/18 at 18:30 Ondansetron HCl (Zofran Inj) 4 mg Q6H PRN IV NAUSEA/VOMITING Last administered on 08/03/18at 09:26; Admin Dose 4 MG; Start 07/04/18 at 18:30 Docusate Sodium (Colace) 100 mg Q12H PRN PO .CONSTIPATION; Start 07/04/18 at 18:30 Albuterol (Proventil 0.083% (Neb)) 2.5 mg Q4H RESP THERAPY PRN HHN SHORTNESS OF BREATH; Start 07/04/18 at 18:30 Metoclopramide HCl (Reglan) 5 mg Q6H PRN IV NAUSEA Last administered on 08/03/18 12:09; Admin Dose 5 MG; Start 07/05/18 at 10:00 Midodrine (Proamatine) 10 mg TID PO Last administered on 08/03/18 13:36; Admin Dose 10 MG; Start 07/06/18 at 09:00 Albuterol (Ventolin Hfa) 2 puff Q4 INH Last administered on 08/03/18 12:10; Admin Dose 2 PUFF; Start 07/06/18 at 04:30 Ondansetron HCl (Zofran Odt) 4 mg Q6H PRN ODT NAUSEA AND/OR VOMITING Last administered on 08/01/18 03:37; Admin Dose 4 MG; Start 07/06/18 at 04:00 Pantoprazole (Protonix Tab) 40 mg BID@0600,1800 PO Last administered on 08/03/18 05:52; Admin Dose 40 MG; Start 07/06/18 at 06:00 Rifaximin (Xifaxan) 200 mg TID PO Last administered on 08/03/18 12:09; Admin Dose 200 MG; Start 07/09/18 at 21:00 Acetaminophen/ Hydrocodone Bitart ([place] (5/325)) 1 tab Q6H PRN PO MODERATE PAIN LEVEL 4-6 Last administered on 08/02/18 12:24; Admin Dose 1 TAB; Start 07/14/18 at 17:30 Sodium Hypochlorite (Dakin'S (Dilute 40)) 1 applic DAILY IRR Last administered on 08/03/18 09:27; Admin Dose 1 APPLIC; Start 07/15/18 at 23:45 Simethicone (Mylicon) 80 mg Q6H PRN PO DISTENSION/GAS/BLOATING Last adminis tered on 08/03/18 09:26; Admin Dose 80 MG; Start 07/16/18 at 15:30 Lactulose (Enulose) 10 gm DAILY PO Last administered on 08/03/18 09:27; Admin Dose 10 GM; Start 07/19/18 at 09:00 Spironolactone (Aldactone) 25 mg BID DIURETICS PO Last administered on 08/03/18 05:53; Admin Dose 25 MG; Start 07/19/18 at 13:00 Vancomycin HCl (Vancomycin Oral Syringe) 125 mg Q6 PO Last administered on 08/03/18 12:09; Admin Dose 125 MG; Start 07/20/18 at 18:00 Diphenhydramine HCl (Benadryl) 25 mg Q8H PRN IV PRURITUS/ITCHING Last administered on 07/20/18 20:21; Admin Dose 25 MG; Start 07/20/18 at 18:30 Morphine Sulfate (morphine) 6 mg Q4H PRN PO SEVERE PAIN LEVEL 7-10 Last administered on 08/02/18 05:56; Admin Dose 6 MG; Start 07/20/18 at 23:30 Trazodone HCl (Desyrel) 50 mg HS PRN PO insomnia Last administered on 08/02/18 22:32; Admin Dose 50 MG; Start 07/21/18 at 23:30 Nystatin (Nystatin Powder) 1 applic BID TOP Last administered on 08/03/18 09:27; Admin Dose 1 APPLIC; Start 07/25/18 at 21:00 Nystatin (Nystatin Oint) 1 applic TID TOP Last administered on 08/03/18 12:10; Admin Dose 1 APPLIC; Start 07/27/18 at 21:00 Hydromorphone HCl (Dilaudid) 1 mg Q3H PRN IV SEVERE PAIN LEVEL 7-10 Last administered on 08/03/18 13:35; Admin Dose 1 MG; Start 07/30/18 at 13:00 Phytonadione (Vitamin K) 10 mg QAM SC Last administered on 08/03/18 10:11; Admin Dose 10 MG; Start 08/03/18 at 09:00; Stop 08/06/18 at 08:59 Polyethylene Glycol/ Electrolytes (Golytely) 2,000 ml 2nd Dose (GI Prep) ONCE PO ; Start 08/03/18 at 18:00; Stop 08/03/18 at 18:01 Bisacodyl (Dulcolax) 10 mg 2nd Dose (GI Prep) ONCE PO ; Start 08/03/18 at 20:00; Stop 08/03/18 at 20:01 Meds reviewed: Yes Allergies Coded Allergies: No Known Allergy (Unverified , 07/04/18) Allergies Reviewed: Yes Labs/Studies Labs Reviewed: Reviewed by anesthesiologist Result Diagram: 08/03/18 0523 08/03/18 0523 Laboratory Tests 08/03/18 05:23 test: N/A Pre-procedure Exam Last vitals Vital Signs Date Temp Pulse Resp B/P (MAP) Pulse Ox O2 O2 Flow FiO2 Time Delivery Rate 08/03/18 98.8 83 18 117/59 96 14:00 (78) 08/02/18 Room Air 14:00 Airway: Adequate mouth opening Mallampati: Mallampati II Teeth: Normal Lung: Normal Heart: Normal ASA Physical Status ASA physical status: 3 Emergency: None Planned Anesthetic General/MAC: MAC Pre-operative Attestations Prior to commencing anesthesia and surgery, the patient was re-evaluated, there was verification of: *The patient's identity *The results of appropriate recent lab work and preoperative vital signs *The above evaluation not changing prior to induction *Anesthetic plan, risk benefits, alternative and complications discussed with patient/family; questions answered; patient/family understands, accepts and wishes to proceed. ADRIAN SALDAÑA Aug 03, 2018 17:13
[2018-08-03 21:33] VITALS: BP 113/53; PULSE 80; RESP 16
[2018-08-03] MEDS: traZODone 50 MG TAB PO PRN (21:51)
[2018-08-04] VITALS (15 sets, daily range): BP systolic 86–114; BP diastolic 45–59; PULSE 70–88; RESP 13–18
[2018-08-04] MEDS: VANCOMYCIN HCL 250 MG/5ML POSYG PO SCH ×4 (00:12→17:26)
[2018-08-04] MEDS: ALBUTEROL HFA 8 GM INHALER INH SCH ×6 (00:12→20:28)
[2018-08-04] MEDS: HYDROmorphONE 1 MG/ML SYG IV PRN ×5 (00:16→20:29)
[2018-08-04] MEDS: METOCLOPRAMIDE 10 MG INJ IV PRN ×3 (00:41→17:26)
[2018-08-04] MEDS: ONDANSETRON 4 MG INJ IV PRN ×2 (05:16→20:24)
[2018-08-04] MEDS: PANTOPRAZOLE (EC) 40 MG TAB PO SCH ×2 (05:37→17:27)
[2018-08-04] MEDS: SPIRONOLACTONE 25 MG TAB PO SCH ×2 (05:37→17:27)
[2018-08-04] MEDS: DIPHENHYDRAMINE 50 MG INJ IV PRN (07:15)
[2018-08-04] MEDS: SODIUM HYPOCHLORITE (1/40) 1 APPLIC BTL IRR SCH (09:00)
[2018-08-04] MEDS: LACTULOSE 30ML CUP PO SCH (09:46)
[2018-08-04] MEDS: MIDODRINE 5 MG TAB PO SCH ×3 (09:47→21:54)
[2018-08-04] MEDS: RIFAXIMIN 200 MG TAB PO SCH ×3 (09:47→20:19)
[2018-08-04] MEDS: NYSTATIN 30 GM POWDER BTL TOP SCH ×2 (09:48→20:28)
[2018-08-04] MEDS: PHYTONADIONE 10 MG/ML INJ SC SCH (09:48)
[2018-08-04] MEDS: NYSTATIN 15 GM OINT TOP SCH ×3 (09:49→20:28)
--- NOTE | 2018-08-04 12:41 | PREAC ---
Date/Time of Note Date/Time of Note DATE: 08/04/18 TIME: 12:40 Anesthesia Eval and Record Evaluation Time Pre-Procedure Interview DATE: 08/04/18 TIME: 12:40 Age 48 Sex female NPO: 8 hrs Preoperative diagnosis cirrhosis Planned procedure egd with colonoscopy Past Medical History Past Medical History: Includes Hepatic: Alcohol abuse, Cirrhosis Surgery & Anesthesia Issues No known issue Meds Anticoagulation: No Beta Dipak within 24 hr: No Reason Beta Dipak not given: Pt. not on B-Dipak Active Scripts Hydrocodone/Acetaminophen ([place] 5-325 Tablet) 1 Each Tablet, 1 TAB PO Q6H PRN for PAIN, #7 TAB Prov:RADHA MORALES MD 06/28/18 Ondansetron (Ondansetron Odt) 4 Mg Tab.rapdis, 4 MG PO Q6H PRN for NAUSEA AND/OR VOMITING, #10 TAB Prov:ALEXANDRIA QUIROGA MD 06/14/18 Reported Medications Lactulose (Constulose) 10 Gm/15 Ml Solution, 10 GM PO NEEDED 06/28/18 Albuterol Sulfate* (Ventolin HFA*) 18 Gm Hfa.aer.ad, 2 PUFF INHALATION Q4H, #1 INHALER 06/28/18 Midodrine* (Midodrine*) 5 Mg Tablet, 5 MG PO TID, TAB 06/28/18 Spironolactone* (Aldactone*) 100 Mg Tablet, 100 MG PO BID, #60 TAB 05/15/18 Omeprazole* (Omeprazole*) 20 Mg Capsule.dr, 20 MG PO BID, #60 CAP 05/15/18 Potassium Chloride* (K-Dur*) 20 Meq Tab.prt.sr, 20 MEQ PO BID, TAB.SA 05/15/18 Current Medications IV Flush (NS 3 ml) 3 ml PER PROTOCOL IV Last administered on 07/26/18at 20:08; Admin Dose 3 ML; Start 07/04/18 at 18:30 Ondansetron HCl (Zofran Inj) 4 mg Q6H PRN IV NAUSEA/VOMITING Last administered on 08/04/18at 05:16; Admin Dose 4 MG; Start 07/04/18 at 18:30 Docusate Sodium (Colace) 100 mg Q12H PRN PO .CONSTIPATION; Start 07/04/18 at 18:30 Albuterol (Proventil 0.083% (Neb)) 2.5 mg Q4H RESP THERAPY PRN HHN SHORTNESS OF BREATH; Start 07/04/18 at 18:30 Metoclopramide HCl (Reglan) 5 mg Q6H PRN IV NAUSEA Last administered on 08/04/18 09:47; Admin Dose 5 MG; Start 07/05/18 at 10:00 Midodrine (Proamatine) 10 mg TID PO Last administered on 08/04/18 09:47; Admin Dose 10 MG; Start 07/06/18 at 09:00 Albuterol (Ventolin Hfa) 2 puff Q4 INH Last administered on 08/04/18 09:49; Admin Dose 2 PUFF; Start 07/06/18 at 04:30 Ondansetron HCl (Zofran Odt) 4 mg Q6H PRN ODT NAUSEA AND/OR VOMITING Last administered on 08/01/18 03:37; Admin Dose 4 MG; Start 07/06/18 at 04:00 Pantoprazole (Protonix Tab) 40 mg BID@0600,1800 PO Last administered on 08/03/18 17:14; Admin Dose 40 MG; Start 07/06/18 at 06:00 Rifaximin (Xifaxan) 200 mg TID PO Last administered on 08/04/18 09:47; Admin Dose 200 MG; Start 07/09/18 at 21:00 Acetaminophen/ Hydrocodone Bitart ([place] (5/325)) 1 tab Q6H PRN PO MODERATE PAIN LEVEL 4-6 Last administered on 08/02/18 12:24; Admin Dose 1 TAB; Start 07/14/18 at 17:30 Sodium Hypochlorite (Dakin'S (Dilute 1/40)) 1 applic DAILY IRR Last administered on 08/03/18 09:27; Admin Dose 1 APPLIC; Start 07/15/18 at 23:45 Simethicone (Mylicon) 80 mg Q6H PRN PO DISTENSION/GAS/BLOATING Last administered on 08/04/18 09:47; Admin Dose 80 MG; Start 07/16/18 at 15:30 Lactulose (Enulose) 10 gm DAILY PO Last administered on 08/04/18 09:46; Admin Dose 10 GM; Start 07/19/18 at 09:00 Spironolactone (Aldactone) 25 mg BID DIURETICS PO Last administered on 08/03/18 17:14; Admin Dose 25 MG; Start 07/19/18 at 13:00 Vancomycin HCl (Vancomycin Oral Syringe) 125 mg Q6 PO Last administered on 08/04/18 00:12; Admin Dose 125 MG; Start 07/20/18 at 18:00 Diphenhydramine HCl (Benadryl) 25 mg Q8H PRN IV PRURITUS/ITCHING Last administered on 08/04/18 07:15; Admin Dose 25 MG; Start 07/20/18 at 18:30 Morphine Sulfate (morphine) 6 mg Q4H PRN PO SEVERE PAIN LEVEL 7-10 Last a dministered on 08/02/18 05:56; Admin Dose 6 MG; Start 07/20/18 at 23:30 Trazodone HCl (Desyrel) 50 mg HS PRN PO insomnia Last administered on 08/03/18 21:51; Admin Dose 50 MG; Start 07/21/18 at 23:30 Nystatin (Nystatin Powder) 1 applic BID TOP Last administered on 08/04/18 09:48; Admin Dose 1 APPLIC; Start 07/25/18 at 21:00 Nystatin (Nystatin Oint) 1 applic TID TOP Last administered on 08/04/18 09:49; Admin Dose 1 APPLIC; Start 07/27/18 at 21:00 Hydromorphone HCl (Dilaudid) 1 mg Q3H PRN IV SEVERE PAIN LEVEL 7-10 Last administered on 08/04/18 09:47; Admin Dose 1 MG; Start 07/30/18 at 13:00 Phytonadione (Vitamin K) 10 mg QAM SC Last administered on 08/04/18 09:48; Admin Dose 10 MG; Start 08/03/18 at 09:00; Stop 08/06/18 at 08:59 Meds reviewed: Yes Allergies Coded Allergies: No Known Allergy (Unverified , 07/04/18) Allergies Reviewed: Yes Labs/Studies Labs Reviewed: Reviewed by anesthesiologist Result Diagram: 08/03/1852208/03/18522 Blood Bank Test 08/04/18 04:25 2/28/19 08:16 Antibody Screen NEGATIVE Blood Product Summary Counts Blood Type A NEGATIVE Transfusion Reaction Date 08/04/18 @0710 Transfusion Reaction Symptoms HIVES Tx Reaction Implicated Unit 1 FP / [id number] test: N/A Pre-procedure Exam Last vitals Vital Signs Date Temp Pulse Resp B/P (MAP) Pulse Ox O2 O2 Flow FiO2 Time Delivery Rate 08/04/18 98.1 84 16 98/53 (68) 98 Room Air 07:45 Airway: Adequate mouth opening, Adequate thyromental dist Mallampati: Mallampati IV Teeth: Normal Lung: Normal Heart: Normal ASA Physical Status ASA physical status: 4 Emergency: None Pre-operative Attestations Prior to commencing anesthesia and surgery, the patient was re-evaluated, there was verification of: *The patient's identity *The results of appropriate recent lab work and preoperative vital signs *The above evaluation not changing prior to induction *Anesthetic plan, risk benefits, alternative and complications discussed with patient/family; questions answered; patient/family understands, accepts and wishes to proceed. LASHA CONWAY DO Aug 04, 2018 12:41
[2018-08-04] MEDS ORDERED: PROPOFOL 20 ML ONE (12:48)
[2018-08-04] MEDS ORDERED: LIDOCAINE 2% (SDV) 5 ML INJ ONE (12:48)
[2018-08-04] MEDS ORDERED: MIDAZOLAM 1 MG/ML 2 ML INJ ONE (12:48)
--- NOTE | 2018-08-04 13:18 | PAC ---
Date/Time of Note Date/Time of Note DATE: 08/04/18 TIME: 13:18 Post-Anesthesia Notes Post-Anesthesia Note Last documented vital signs Vital Signs Date Temp Pulse Resp B/P (MAP) Pulse Ox O2 O2 Flow FiO2 Time Delivery Rate 08/04/18 98.1 75 16 93/62) 98 Room Air 1318 Activity: WNL Respiratory function: WNL Cardiovascular function: WNL Mental status: Baseline Pain reasonably controlled: Yes Hydration appropriate: Yes Nausea/Vomiting absent: Yes LASHA CONWAY DO Aug 04, 2018 13:18
--- NOTE | 2018-08-04 13:55 | PN ---
Date/Time of Note Date/Time of Note DATE: 08/04/18 TIME: 13:53 Assessment/Plan VTE Prophylaxis Risk score (from Nsg)>0 risk: 6 Pharmacological prophylaxis: NA/contraindicated Pharm contraindication: liver dx Lines/Catheters IV Catheter Type (from Nrsg): Peripheral IV Urinary Cath still in place: No Assessment/Plan Hospital Course 1. Left foot wound s/p debridement with wound VAC- stable - s/p skin allograft and wound vac placement 07/27/18 - pain control effective - MRI foot shows no evidence of OM - Podiatry on board and appreciate recommendations. continue wound care, IV antibiotics and wound vac - Continue current antibiotics 2. SBP with klebsiella bacteremia: - Continue Abx course per ID 3. Cirrhosis with ascites - Status post paracentesis x3 - Continue Aldactone - Continue rifaximin/lactulose - has follow up with Dr. Gómez as outpatient, will have a preop eval with EGD and colonoscopy today 4. Anemia - most likely 2/2 liver dz 5. Acute kidney injury likely secondary to hemodynamics and intravascular volume depletion-resolved - Nephrology consultation appreciated 6. Anemia of chronic disease - stable 7. C Diff diarrhea - s/p PO vanco course - resolving 8. Disposition - Continue current care. Pending placement to SNF for wound care, wound vac, and IV antibiotics - May need another paracentesis prior to discharge Result Diagram: 08/03/1852208/03/18522 Subjective 24 Hr Interval Summary Constitutional: no complaints Exam/Review of Systems Exam Vitals Vital Signs Date Temp Pulse Resp B/P (MAP) Pulse Ox O2 O2 Flow FiO2 Time Delivery Rate 08/04/18 98.1 84 16 98/53 (68) 98 Room Air 07:45 Intake and Output 08/03/18 08/03/18 08/04/18 1414:59 22:59 06:59 IntakeIntake Total 450 ml BalanceBalance 450 ml Constitutional: alert, oriented Respiratory: clear to auscultation Cardiovascular: regular rate and rhythm Gastrointestinal: soft; No distended Musculoskeletal: nl extremities to inspection Medications Medication Current Medications IV Flush (NS 3 ml) 3 ml PER PROTOCOL IV Last administered on 07/26/18at 20:08; Admin Dose 3 ML; Start 07/04/18 at 18:30 Ondansetron HCl (Zofran Inj) 4 mg Q6H PRN IV NAUSEA/VOMITING Last administered on 08/04/18 05:16; Admin Dose 4 MG; Start 07/04/18 at 18:30 Docusate Sodium (Colace) 100 mg Q12H PRN PO .CONSTIPATION; Start 07/04/18 at 18:30 Albuterol (Proventil 0.083% (Neb)) 2.5 mg Q4H RESP THERAPY PRN HHN SHORTNESS OF BREATH; Start 07/04/18 at 18:30 Metoclopramide HCl (Reglan) 5 mg Q6H PRN IV NAUSEA Last administered on 08/04/18 09:47; Admin Dose 5 MG; Start 07/05/18 at 10:00 Midodrine (Proamatine) 10 mg TID PO Last administered on 08/04/18 09:47; Admin Dose 10 MG; Start 07/06/18 at 09:00 Albuterol (Ventolin Hfa) 2 puff Q4 INH Last administered on 08/04/18 09:49; Admin Dose 2 PUFF; Start 07/06/18 at 04:30 Ondansetron HCl (Zofran Odt) 4 mg Q6H PRN ODT NAUSEA AND/OR VOMITING Last administered on 08/01/18 03:37; Admin Dose 4 MG; Start 07/06/18 at 04:00 Pantoprazole (Protonix Tab) 40 mg BID@0600,1800 PO Last administered on 08/03/18 17:14; Admin Dose 40 MG; Start 07/06/18 at 06:00 Rifaximin (Xifaxan) 200 mg TID PO Last administered on 08/04/18 09:47; Admin Dose 200 MG; Start 07/09/18 at 21:00 Acetaminophen/ Hydrocodone Bitart ([place] (5/325)) 1 tab Q6H PRN PO MODERATE PAIN LEVEL 4-6 Last administered on 08/02/18 12:24; Admin Dose 1 TAB; Start 07/14/18 at 17:30 Sodium Hypochlorite (Dakin'S (Dilute )) 1 applic DAILY IRR Last ad ministered on 08/03/18 09:27; Admin Dose 1 APPLIC; Start 07/15/18 at 23:45 Simethicone (Mylicon) 80 mg Q6H PRN PO DISTENSION/GAS/BLOATING Last administered on 08/04/18 09:47; Admin Dose 80 MG; Start 07/16/18 at 15:30 Lactulose (Enulose) 10 gm DAILY PO Last administered on 08/04/18 09:46; Admin Dose 10 GM; Start 07/19/18 at 09:00 Spironolactone (Aldactone) 25 mg BID DIURETICS PO Last administered on 08/03/18 17:14; Admin Dose 25 MG; Start 07/19/18 at 13:00 Vancomycin HCl (Vancomycin Oral Syringe) 125 mg Q6 PO Last administered on 08/04/18 00:12; Admin Dose 125 MG; Start 07/20/18 at 18:00 Diphenhydramine HCl (Benadryl) 25 mg Q8H PRN IV PRURITUS/ITCHING Last administered on 08/04/18 07:15; Admin Dose 25 MG; Start 07/20/18 at 18:30 Morphine Sulfate (morphine) 6 mg Q4H PRN PO SEVERE PAIN LEVEL 7-10 Last administered on 08/02/18 05:56; Admin Dose 6 MG; Start 07/20/18 at 23:30 Trazodone HCl (Desyrel) 50 mg HS PRN PO insomnia Last administered on 08/03/18 21:51; Admin Dose 50 MG; Start 07/21/18 at 23:30 Nystatin (Nystatin Powder) 1 applic BID TOP Last administered on 08/04/18 09:48; Admin Dose 1 APPLIC; Start 07/25/18 at 21:00 Nystatin (Nystatin Oint) 1 applic TID TOP Last administered on 08/04/18 09:49; Admin Dose 1 APPLIC; Start 07/27/18 at 21:00 Hydromorphone HCl (Dilaudid) 1 mg Q3H PRN IV SEVERE PAIN LEVEL 7-10 Last administered on 08/04/18 09:47; Admin Dose 1 MG; Start 07/30/18 at 13:00 Phytonadione (Vitamin K) 10 mg QAM SC Last administered on 08/04/18 09:48; Admin Dose 10 MG; Start 08/03/18 at 09:00; Stop 08/06/18 at 08:59 ANA SPICER Aug 04, 2018 13:54
--- NOTE | 2018-08-04 16:36 | CONS ---
Assessment/Plan Assessment/Plan Hospital Course (Demo Recall) No events per report, sleeping, looks comfortable, no fevers Microbiology: Blood culture grew Klebsiella pneumonia on July 04 susceptible to Cipro and Levaquin, stool for C. difficile positive, urine culture negative MRSA swab negative, L foot wound culture grew Klebsiella pneumoniae susceptible to ming quinolones and staph species Antimicrobials: PO Vanco Physical examination: Chronically ill-appearing middle-aged woman who is in no distress. Head atraumatic normocephalic sclera nonicteric vehicle mucosa dry neck is supple chest rise symmetrical breath sounds diminished at bases. Heart: S1-S2. Abdomen soft bowel sounds present extremities with bilateral edema, left lower extremity dressing intact Assessment: 1. S/p sepsis with Klebsiella pneumonia bacteremia likely secondary to SBP vs #2 2. Left lower extremity abscess/ cellulitis==> neg OM, s/p i/d 07/18/18 with wound vac 3. C. difficile colitis 4. Alcoholic liver cirrhosis 5. Recurrent ascites 6. Anemia and thrombocytopenia Plan: Remains stable, dc oral vancomycin, continue wound care per podiatry recommendations, pending SNF Consultation Date/Type/Reason Admit Date/Time Jul 04, 2018 at 14:22 Initial Consult Date 07/07/18 Type of Consult id Requesting Provider: ANA SPICER Date/Time of Note DATE: 08/04/18 TIME: 16:35 Exam/Review of Systems Exam Vitals Vital Signs Date Temp Pulse Resp B/P (MAP) Pulse Ox O2 O2 Flow FiO2 Time Delivery Rate 08/04/18 98.3 78 16 111/52 97 Room Air 14:40 (71) 08/04/18 2.0 14:10 Intake and Output 08/03/18 08/03/18 08/04/18 1414:59 22:59 06:59 IntakeIntake Total 450 ml BalanceBalance 450 ml Results Result Diagram: 08/03/1852208/03/18522 Medications Medication Current Medications IV Flush (NS 3 ml) 3 ml PER PROTOCOL IV Last administered on 07/26/18at 20:08; Admin Dose 3 ML; Start 07/04/18 at 18:30 Ondansetron HCl (Zofran Inj) 4 mg Q6H PRN IV NAUSEA/VOMITING Last administered on 08/04/18at 05:16; Admin Dose 4 MG; Start 07/04/18 at 18:30 Docusate Sodium (Colace) 100 mg Q12H PRN PO .CONSTIPATION; Start 07/04/18 at 18:30 Albuterol (Proventil 0.083% (Neb)) 2.5 mg Q4H RESP THERAPY PRN HHN SHORTNESS OF BREATH; Start 07/04/18 at 18:30 Metoclopramide HCl (Reglan) 5 mg Q6H PRN IV NAUSEA Last administered on 08/04/18 at 09:47; Admin Dose 5 MG; Start 07/05/18 at 10:00 Midodrine (Proamatine) 10 mg TID PO Last administered on 08/04/18 09:47; Admin Dose 10 MG; Start 07/06/18 at 09:00 Albuterol (Ventolin Hfa) 2 puff Q4 INH Last administered on 08/04/18 09:49; Admin Dose 2 PUFF; Start 07/06/18 at 04:30 Ondansetron HCl (Zofran Odt) 4 mg Q6H PRN ODT NAUSEA AND/OR VOMITING Last administered on 08/01/18 03:37; Admin Dose 4 MG; Start 07/06/18 at 04:00 Pantoprazole (Protonix Tab) 40 mg BID@0600,1800 PO Last administered on 08/03/18 17:14; Admin Dose 40 MG; Start 07/06/18 at 06:00 Rifaximin (Xifaxan) 200 mg TID PO Last administered on 08/04/18 09:47; Admin Dose 200 MG; Start 07/09/18 at 21:00 Acetaminophen/ Hydrocodone Bitart ([place] (5/325)) 1 tab Q6H PRN PO MODERATE PAIN LEVEL 4-6 Last administered on 08/02/18 12:24; Admin Dose 1 TAB; Start 07/14/18 at 17:30 Sodium Hypochlorite ([place]akin[place] (Dilute )) 1 applic DAILY IRR Last administered on 08/03/18 09:27; Admin Dose 1 APPLIC; Start 07/15/18 at 23:45 Simethicone (Mylicon) 80 mg Q6H PRN PO DISTENSION/GAS/BLOATING Last administered on 08/04/18 09:47; Admin Dose 80 MG; Start 07/16/18 at 15:30 Lactulose (Enulose) 10 gm DAILY PO Last administered on 08/04/18 09:46; Admin Dose 10 GM; Start 07/19/18 at 09:00 Spironolactone (Aldactone) 25 mg BID DIURETICS PO Last administered on 08/03/18 17:14; Admin Dose 25 MG; Start 07/19/18 at 13:00 Vancomycin HCl (Vancomycin Oral Syringe) 125 mg Q6 PO Last administered on 08/04/18 00:12; Admin Dose 125 MG; Start 07/20/18 at 18:00 Diphenhydramine HCl (Benadryl) 25 mg Q8H PRN IV PRURITUS/ITCHING Last administered on 08/04/18 07:15; Admin Dose 25 MG; Start 07/20/18 at 18:30 Morphine Sulfate (morphine) 6 mg Q4H PRN PO SEVERE PAIN LEVEL 7-10 Last administered on 08/02/18 05:56; Admin Dose 6 MG; Start 07/20/18 at 23:30 Trazodone HCl (Desyrel) 50 mg HS PRN PO insomnia Last administered on 08/03/18 21:51; Admin Dose 50 MG; Start 07/21/18 at 23:30 Nystatin (Nystatin Powder) 1 applic BID TOP Last administered on 08/04/18 09:48; Admin Dose 1 APPLIC; Start 07/25/18 at 21:00 Nystatin (Nystatin Oint) 1 applic TID TOP Last administered on 08/04/18 09:49; Admin Dose 1 APPLIC; Start 07/27/18 at 21:00 Hydromorphone HCl (Dilaudid) 1 mg Q3H PRN IV SEVERE PAIN LEVEL 7-10 Last administered on 08/04/18 09:47; Admin Dose 1 MG; Start 07/30/18 at 13:00 Phytonadione (Vitamin K) 10 mg QAM SC Last administered on 08/04/18 09:48; Admin Dose 10 MG; Start 08/03/18 at 09:00; Stop 08/06/18 at 08:59 EMA MUELLER NP Aug 04, 2018 16:36
[2018-08-04] MEDS: traZODone 50 MG TAB PO PRN (22:58)
[2018-08-05] MEDS: ALBUTEROL HFA 8 GM INHALER INH SCH ×6 (00:45→21:05)
[2018-08-05] MEDS: VANCOMYCIN HCL 250 MG/5ML POSYG PO SCH ×3 (00:45→11:48)
[2018-08-05] MEDS: METOCLOPRAMIDE 10 MG INJ IV PRN ×4 (00:46→22:35)
[2018-08-05] MEDS: HYDROmorphONE 1 MG/ML SYG IV PRN ×7 (00:47→22:34)
[2018-08-05 01:45] VITALS: BP_SYST 122; BP_SYST 93; BP_DIAS 52; BP_DIAS 64; PULSE 81; RESP 20
[2018-08-05] MEDS: ONDANSETRON 4 MG INJ IV PRN ×3 (04:10→19:00)
[2018-08-05] MEDS: morphine LIQ (10 MG/5 ML) CUP PO PRN (05:23)
[2018-08-05] MEDS: SPIRONOLACTONE 25 MG TAB PO SCH ×2 (05:23→19:01)
[2018-08-05] MEDS: PANTOPRAZOLE (EC) 40 MG TAB PO SCH (05:25)
[2018-08-05 08:00] VITALS: BP 108/51; PULSE 86; RESP 20
[2018-08-05] MEDS: SODIUM HYPOCHLORITE (1/40) 1 APPLIC BTL IRR SCH (08:51)
[2018-08-05] MEDS: PHYTONADIONE 10 MG/ML INJ SC SCH (08:52)
[2018-08-05] MEDS: RIFAXIMIN 200 MG TAB PO SCH ×3 (09:02→20:58)
[2018-08-05] MEDS: MIDODRINE 5 MG TAB PO SCH ×3 (09:06→20:58)
[2018-08-05] MEDS: LACTULOSE 30ML CUP PO SCH (09:07)
[2018-08-05] MEDS: NYSTATIN 30 GM POWDER BTL TOP SCH ×2 (09:09→21:01)
[2018-08-05] MEDS: NYSTATIN 15 GM OINT TOP SCH ×3 (09:09→21:01)
--- NOTE | 2018-08-05 13:00 | CONS ---
Assessment/Plan Assessment/Plan Assessment/Plan (Daily) 1. Alcoholic Cirrhosis of liver. -on transplant list at [facility] -AFP wnl 2. Anemia, no evidence of active bleeding, may be anemia of chronic disease. 3. Pancytopenia secondary to #1 4. 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 5. Cellulitis, status post skin graft and wound VAC. -K. pneumoniae and coagulase neg staph in wound -followed by podiatry 6. Clostridium difficile colitis. US of abd 08/01: 1. Coarse nodular liver consistent with cirrhosis. No focal hepatic masses. 2. Status post cholecystectomy. No biliary duct dilatation. 3. Patent portal vein with pulsatile hepatopetal flow. 4. Suspect portal hypertension as demonstrated by moderate ascites. 5. Moderate size right pleural effusion as well. 6. Increased right renal cortical echogenicity suggest medical renal disease PLAN: Check INR, consider vitamin K and or FFP prior to procedures Pt is only on Vanco PO now Continue rifaximin, Lactulose AFP within normal limit Ultrasound of the liver is also normal no evidence of any tumor Patient is no evidence of C. difficile colitis, we should stop vancomycin and also PPI. Consultation Date/Type/Reason Admit Date/Time Jul 04, 2018 at 14:22 Initial Consult Date 07/07/18 Requesting Provider: ANA SPICER Date/Time of Note DATE: 08/05/18 TIME: 12:59 24 HR Interval Summary Constitutional: no complaints, improved Exam/Review of Systems Exam Vitals Vital Signs Date Temp Pulse Resp B/P (MAP) Pulse Ox O2 O2 Flow FiO2 Time Delivery Rate 08/05/18 98.8 86 20 108/51 96 08:00 (70) 08/04/18 Nasal 20:16 Cannula 08/04/18 2.0 14:10 Intake and Output 08/04/18 08/04/18 08/05/18 1515:00 23:00 07:00 IntakeIntake Total 200 ml 250 ml BalanceBalance 200 ml 250 ml Constitutional: alert, oriented, well developed Psych: no complaints, nl mood/affect Head: normocephalic, atraumatic Eyes: nl conjunctiva, EOMI, nl lids, nl sclera, PERRL ENMT: nl external ears & nose, nl lips & teeth, nl nasal mucosa & septum Neck: supple, non-tender Respiratory: clear to auscultation, normal air movement Cardiovascular: regular rate and rhythm, nl pulses Gastrointestinal: soft, nl liver, spleen, non-tender Musculoskeletal: nl extremities to inspection, nl gait and stance Extremities: normal pulses 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: WO[employer]ER II-XII intact, nl mental status, nl speech, nl strength Skin: nl turgor; No rash or lesions Lymph: nl lymph nodes Results Result Diagram: 08/03/1852208/03/18522 Medications Medication Current Medications IV Flush (NS 3 ml) 3 ml PER PROTOCOL IV Last administered on 07/26/18 20:08; Admin Dose 3 ML; Start 07/04/18 at 18:30 Ondansetron HCl (Zofran Inj) 4 mg Q6H PRN IV NAUSEA/VOMITING Last administered on 08/05/18 11:49; Admin Dose 4 MG; Start 07/04/18 at 18:30 Docusate Sodium (Colace) 100 mg Q12H PRN PO .CONSTIPATION; Start 07/04/18 at 18:30 Albuterol (Proventil 0.083% (Neb)) 2.5 mg Q4H RESP THERAPY PRN HHN SHORTNESS OF BREATH; Start 07/04/18 at 18:30 Metoclopramide HCl (Reglan) 5 mg Q6H PRN IV NAUSEA Last administered on 08/05/18 08:32; Admin Dose 5 MG; Start 07/05/18 at 10:00 Midodrine (Proamatine) 10 mg TID PO Last administered on 08/05/18 12:17; Admin Dose 10 MG; Start 07/06/18 at 09:00 Albuterol (Ventolin Hfa) 2 puff Q4 INH Last administered on 08/05/18 11:51; Admin Dose 2 PUFF; Start 07/06/18 at 04:30 Ondansetron HCl (Zofran Odt) 4 mg Q6H PRN ODT NAUSEA AND/OR VOMITING Last administered on 08/01/18 03:37; Admin Dose 4 MG; Start 07/06/18 at 04:00 Pantoprazole (Protonix Tab) 40 mg BID@0600,1800 PO Last administered on 05:25; Admin Dose 40 MG; Start 07/06/18 at 06:00 Rifaximin (Xifaxan) 200 mg TID PO Last administered on 08/05/18 12:12; Admin Dose 200 MG; Start 07/09/18 at 21:00 Acetaminophen/ Hydrocodone Bitart ([place] (5/325)) 1 tab Q6H PRN PO MODERATE PAIN LEVEL 4-6 Last administered on 08/02/18 12:24; Admin Dose 1 TAB; Start 07/14/18 at 17:30 Sodium Hypochlorite (Dakin'S (Dilute )) 1 applic DAILY IRR Last administered on 08/05/18 08:51; Admin Dose 1 APPLIC; Start 07/15/18 at 23:45 Simethicone (Mylicon) 80 mg Q6H PRN PO DISTENSION/GAS/BLOATING Last administered on 08/05/18 09:09; Admin Dose 80 MG; Start 07/16/18 at 15:30 Lactulose (Enulose) 10 gm DAILY PO Last administered on 08/05/18 09:07; Admin Dose 10 GM; Start 07/19/18 at 09:00 Spironolactone (Aldactone) 25 mg BID DIURETICS PO Last administered on 08/05/18 05:23; Admin Dose 25 MG; Start 07/19/18 at 13:00 Vancomycin HCl (Vancomycin Oral Syringe) 125 mg Q6 PO Last administered on 08/05/18 11:48; Admin Dose 125 MG; Start 07/20/18 at 18:00 Diphenhydramine HCl (Benadryl) 25 mg Q8H PRN IV PRURITUS/ITCHING Last administered on 08/04/18 07:15; Admin Dose 25 MG; Start 07/20/18 at 18:30 Morphine Sulfate (morphine) 6 mg Q4H PRN PO SEVERE PAIN LEVEL 7-10 Last administered on 08/05/18 05:23; Admin Dose 6 MG; Start 07/20/18 at 23:30 Trazodone HCl (Desyrel) 50 mg HS PRN PO insomnia Last administered on 08/04/18 22:58; Admin Dose 50 MG; Start 07/21/18 at 23:30 Nystatin (Nystatin Powder) 1 applic BID TOP Last administered on 08/05/18 09:09; Admin Dose 1 APPLIC; Start 07/25/18 at 21:00 Nystatin (Nystatin Oint) 1 applic TID TOP Last administered on 08/05/18 12:18; Admin Dose 1 APPLIC; Start 07/27/18 at 21:00 Hydromorphone HCl (Dilaudid) 1 mg Q3H PRN IV SEVERE PAIN LEVEL 7-10 Last administered on 08/05/18 11:50; Admin Dose 1 MG; Start 07/30/18 at 13:00 Phytonadione (Vitamin K) 10 mg QAM SC Last administered on 08/05/18 08:52; Admin Dose 10 MG; Start 08/03/18 at 09:00; Stop 08/06/18 at 08:59 TRISTIAN NAIDU MD Aug 05, 2018 13:00
[2018-08-05 14:00] VITALS: BP 98/57; PULSE 88; RESP 18
--- NOTE | 2018-08-05 14:48 | PN ---
Date/Time of Note Date/Time of Note DATE: 08/05/18 TIME: 14:47 Assessment/Plan VTE Prophylaxis Risk score (from Ns)>0 risk: 4 Pharmacological prophylaxis: NA/contraindicated Pharm contraindication: liver dx Lines/Catheters Urinary Cath still in place: No Assessment/Plan Hospital Course 1. Left foot wound s/p debridement with wound VAC- stable - s/p skin allograft and wound vac placement 07/27/18 - pain control effective - MRI foot shows no evidence of OM - Podiatry on board and appreciate recommendations. continue wound care, IV antibiotics and wound vac - Continue current antibiotics 2. SBP with klebsiella bacteremia: - Continue Abx course per ID 3. Cirrhosis with ascites - Status post paracentesis x3, another one will be ordered - Continue Aldactone - Continue rifaximin/lactulose - has follow up with Dr. Gómez as outpatient, liver transplant preop EGD and colonoscopy shows nonbleeding varices and diverticulosis 4. Anemia - most likely 2/2 liver dz 5. Acute kidney injury likely secondary to hemodynamics and intravascular volume depletion-resolved - Nephrology consultation appreciated 6. Anemia of chronic disease - stable 7. C Diff diarrhea - s/p PO vanco course - resolving 8. Disposition - Continue current care. Pending placement to SNF for wound care, wound vac, and IV antibiotics - May need another paracentesis prior to discharge Result Diagram: 08/03/1852208/03/18522 Subjective 24 Hr Interval Summary Constitutional: no complaints Exam/Review of Systems Exam Vitals Vital Signs Date Temp Pulse Resp B/P (MAP) Pulse Ox O2 O2 Flow FiO2 Time Delivery Rate 08/05/18 98.8 86 20 108/51 96 08:00 (70) 08/04/18 Nasal 20:16 Cannula 08/04/18 2.0 14:10 Intake and Output 08/04/18 08/04/18 08/05/18 1515:00 23:00 07:00 IntakeIntake Total 200 ml 250 ml BalanceBalance 200 ml 250 ml Constitutional: alert, oriented Respiratory: clear to auscultation Cardiovascular: regular rate and rhythm Gastrointestinal: soft, distended Musculoskeletal: nl extremities to inspection Medications Medication Current Medications IV Flush (NS 3 ml) 3 ml PER PROTOCOL IV Last administered on 07/26/18at 20:08; Admin Dose 3 ML; Start 07/04/18 at 18:30 Ondansetron HCl (Zofran Inj) 4 mg Q6H PRN IV NAUSEA/VOMITING Last administered on 08/05/18 11:49; Admin Dose 4 MG; Start 07/04/18 at 18:30 Docusate Sodium (Colace) 100 mg Q12H PRN PO .CONSTIPATION; Start 07/04/18 at 18:30 Albuterol (Proventil 0.083% (Neb)) 2.5 mg Q4H RESP THERAPY PRN HHN SHORTNESS OF BREATH; Start 07/04/18 at 18:30 Metoclopramide HCl (Reglan) 5 mg Q6H PRN IV NAUSEA Last administered on 08/05/18 08:32; Admin Dose 5 MG; Start 07/05/18 at 10:00 Midodrine (Proamatine) 10 mg TID PO Last administered on 08/05/18 12:17; Admin Dose 10 MG; Start 07/06/18 at 09:00 Albuterol (Ventolin Hfa) 2 puff Q4 INH Last administered on 08/05/18 11:51; Admin Dose 2 PUFF; Start 07/06/18 at 04:30 Ondansetron HCl (Zofran Odt) 4 mg Q6H PRN ODT NAUSEA AND/OR VOMITING Last administered on 08/01/18 03:37; Admin Dose 4 MG; Start 07/06/18 at 04:00 Rifaximin (Xifaxan) 200 mg TID PO Last administered on 08/05/18 12:12; Admin Dose 200 MG; Start 07/09/18 at 21:00 Acetaminophen/ Hydrocodone Bitart ([place] (5/325)) 1 tab Q6H PRN PO MODERATE PAIN LEVEL 4-6 Last administered on 08/02/18 12:24; Admin Dose 1 TAB; Start 07/14/18 at 17:30 Sodium Hypochlorite (Dakin'S (Dilute )) 1 applic DAILY IRR Last administered on 08/05/18 08:51; Admin Dose 1 APPLIC; Start 07/15/18 at 23:45 Simethicone (Mylicon) 80 mg Q6H PRN PO DISTENSION/GAS/BLOATING Last administered on 08/05/18 09:09; Admin Dose 80 MG; Start 07/16/18 at 15:30 Lactulose (Enulose) 10 gm DAILY PO Last administered on 08/05/18 09:07; Admin Dose 10 GM; Start 07/19/18 at 09:00 Spironolactone (Aldactone) 25 mg BID DIURETICS PO Last administered on 08/05/18 05:23; Admin Dose 25 MG; Start 07/19/18 at 13:00 Diphenhydramine HCl (Benadryl) 25 mg Q8H PRN IV PRURITUS/ITCHING Last administered on 08/04/18 07:15; Admin Dose 25 MG; Start 07/20/18 at 18:30 Morphine Sulfate (morphine) 6 mg Q4H PRN PO SEVERE PAIN LEVEL 7-10 Last administered on 08/05/18 05:23; Admin Dose 6 MG; Start 07/20/18 at 23:30 Trazodone HCl (Desyrel) 50 mg HS PRN PO insomnia Last administered on 08/04/18 22:58; Admin Dose 50 MG; Start 07/21/18 at 23:30 Nystatin (Nystatin Powder) 1 applic BID TOP Last administered on 08/05/18 09:09; Admin Dose 1 APPLIC; Start 07/25/18 at 21:00 Nystatin (Nystatin Oint) 1 applic TID TOP Last administered on 08/05/18 12:18; Admin Dose 1 APPLIC; Start 07/27/18 at 21:00 Hydromorphone HCl (Dilaudid) 1 mg Q3H PRN IV SEVERE PAIN LEVEL 7-10 Last administered on 08/05/18 11:50; Admin Dose 1 MG; Start 07/30/18 at 13:00 Phytonadione (Vitamin K) 10 mg QAM SC Last administered on 08/05/18 08:52; Admin Dose 10 MG; Start 08/03/18 at 09:00; Stop 08/06/18 at 08:59 ANA SPICER Aug 05, 2018 14:48
[2018-08-05] MEDS ORDERED: LIDOCAINE 1% (MPF) 5 ML VIAL ONE (18:02)
--- NOTE | 2018-08-05 19:57 | CONS ---
Assessment/Plan Assessment/Plan Hospital Course (Demo Recall) 1330 Alert, feels good, no fevers Microbiology: Blood culture grew Klebsiella pneumonia on July 04 susceptible to Cipro and Levaquin, stool for C. difficile positive, urine culture negative MRSA swab negative, L foot wound culture grew Klebsiella pneumoniae susceptible to ming quinolones and staph species Physical examination: Chronically ill-appearing middle-aged woman who is in no distress. Head atraumatic normocephalic sclera nonicteric vehicle mucosa dry neck is supple chest rise symmetrical breath sounds diminished at bases. Heart: S1-S2. Abdomen soft bowel sounds present extremities with bilateral edema, left lower extremity dressing intact Assessment: 1. S/p sepsis with Klebsiella pneumonia bacteremia likely secondary to SBP vs #2 2. Left lower extremity abscess/ cellulitis==> neg OM, s/p i/d 07/18/18 with wound vac 3. C. difficile colitis==> treated 4. Alcoholic liver cirrhosis==> on tx list at [facility] 5. Recurrent ascites 6. Anemia and thrombocytopenia Plan: Remains stable, off abx, continue wound care per podiatry recommendations, pending SNF Consultation Date/Type/Reason Admit Date/Time Jul 04, 2018 at 14:22 Initial Consult Date 07/07/18 Type of Consult id Requesting Provider: ANA SPICER Date/Time of Note DATE: 08/05/18 TIME: 19:57 Exam/Review of Systems Exam Vitals Vital Signs Date Temp Pulse Resp B/P (MAP) Pulse Ox O2 O2 Flow FiO2 Time Delivery Rate 08/05/18 98.6 88 18 98/57 (71) 96 14:00 08/04/18 Nasal 20:16 Cannula 08/04/18 2.0 14:10 Intake and Output 08/04/18 08/04/18 08/05/18 1414:59 22:59 06:59 IntakeIntake Total 200 ml 250 ml BalanceBalance 200 ml 250 ml Results Result Diagram: 08/03/18 0523 08/03/18522 Medications Medication Current Medications IV Flush (NS 3 ml) 3 ml PER PROTOCOL IV Last administered on 07/26/18at 20:08; Admin Dose 3 ML; Start 07/04/18 at 18:30 Ondansetron HCl (Zofran Inj) 4 mg Q6H PRN IV NAUSEA/VOMITING Last administered on 08/05/18 19:00; Admin Dose 4 MG; Start 07/04/18 at 18:30 Docusate Sodium (Colace) 100 mg Q12H PRN PO .CONSTIPATION; Start 07/04/18 at 18:30 Albuterol (Proventil 0.083% (Neb)) 2.5 mg Q4H RESP THERAPY PRN HHN SHORTNESS OF BREATH; Start 07/04/18 at 18:30 Metoclopramide HCl (Reglan) 5 mg Q6H PRN IV NAUSEA Last administered on 08/05/18 15:08; Admin Dose 5 MG; Start 07/05/18 at 10:00 Midodrine (Proamatine) 10 mg TID PO Last administered on 08/05/18 12:17; Admin Dose 10 MG; Start 07/06/18 at 09:00 Albuterol (Ventolin Hfa) 2 puff Q4 INH Last administered on 08/05/18 19:01; Admin Dose 2 PUFF; Start 07/06/18 at 04:30 Ondansetron HCl (Zofran Odt) 4 mg Q6H PRN ODT NAUSEA AND/OR VOMITING Last administered on 08/01/18 03:37; Admin Dose 4 MG; Start 07/06/18 at 04:00 Rifaximin (Xifaxan) 200 mg TID PO Last administered on 08/05/18 12:12; Admin Dose 200 MG; Start 07/09/18 at 21:00 Acetaminophen/ Hydrocodone Bitart ([place] (5/325)) 1 tab Q6H PRN PO MODERATE PAIN LEVEL 4-6 Last administered on 08/02/18 12:24; Admin Dose 1 TAB; Start 07/14/18 at 17:30 Sodium Hypochlorite (Dakin'S (Dilute )) 1 applic DAILY IRR Last administered on 08/05/18 08:51; Admin Dose 1 APPLIC; Start 07/15/18 at 23:45 Simethicone (Mylicon) 80 mg Q6H PRN PO DISTENSION/GAS/BLOATING Last admin istered on 08/05/18 15:08; Admin Dose 80 MG; Start 07/16/18 at 15:30 Lactulose (Enulose) 10 gm DAILY PO Last administered on 08/05/18 09:07; Admin Dose 10 GM; Start 07/19/18 at 09:00 Spironolactone (Aldactone) 25 mg BID DIURETICS PO Last administered on 08/05/18 19:01; Admin Dose 25 MG; Start 07/19/18 at 13:00 Diphenhydramine HCl (Benadryl) 25 mg Q8H PRN IV PRURITUS/ITCHING Last administered on 08/04/18 07:15; Admin Dose 25 MG; Start 07/20/18 at 18:30 Morphine Sulfate (morphine) 6 mg Q4H PRN PO SEVERE PAIN LEVEL 7-10 Last administered on 08/05/18 05:23; Admin Dose 6 MG; Start 07/20/18 at 23:30 Trazodone HCl (Desyrel) 50 mg HS PRN PO insomnia Last administered on 08/04/18 22:58; Admin Dose 50 MG; Start 07/21/18 at 23:30 Nystatin (Nystatin Powder) 1 applic BID TOP Last administered on 08/05/18 09:09; Admin Dose 1 APPLIC; Start 07/25/18 at 21:00 Nystatin (Nystatin Oint) 1 applic TID TOP Last administered on 08/05/18 12:18; Admin Dose 1 APPLIC; Start 07/27/18 at 21:00 Hydromorphone HCl (Dilaudid) 1 mg Q3H PRN IV SEVERE PAIN LEVEL 7-10 Last administered on 08/05/18 19:01; Admin Dose 1 MG; Start 07/30/18 at 13:00 Phytonadione (Vitamin K) 10 mg QAM SC Last administered on 08/05/18 08:52; Admin Dose 10 MG; Start 08/03/18 at 09:00; Stop 08/06/18 at 08:59 EMA MUELLER NP Aug 05, 2018 19:57
[2018-08-05 20:25] VITALS: BP 96/54; PULSE 89; RESP 18
[2018-08-05] MEDS: HYDROCODONE/APAP (5/325) TAB PO PRN (21:04)
[2018-08-06] MEDS: traZODone 50 MG TAB PO PRN ×2 (01:56→22:37)
[2018-08-06] MEDS: ALBUTEROL HFA 8 GM INHALER INH SCH ×6 (01:59→20:23)
[2018-08-06 02:18] VITALS: BP 109/57; PULSE 87; RESP 18
[2018-08-06] MEDS: ONDANSETRON 4 MG INJ IV PRN ×3 (05:36→21:28)
[2018-08-06] MEDS: SPIRONOLACTONE 25 MG TAB PO SCH ×2 (05:37→18:16)
[2018-08-06] MEDS: HYDROmorphONE 1 MG/ML SYG IV PRN ×5 (05:49→21:27)
[2018-08-06 08:00] VITALS: BP 97/48; PULSE 82; RESP 18
[2018-08-06] MEDS: SODIUM HYPOCHLORITE (1/40) 1 APPLIC BTL IRR SCH (08:47)
[2018-08-06] MEDS: NYSTATIN 15 GM OINT TOP SCH ×3 (09:16→20:24)
[2018-08-06] MEDS: NYSTATIN 30 GM POWDER BTL TOP SCH ×2 (09:16→20:24)
[2018-08-06] MEDS: LACTULOSE 30ML CUP PO SCH (09:17)
[2018-08-06] MEDS: RIFAXIMIN 200 MG TAB PO SCH ×3 (09:17→20:22)
[2018-08-06] MEDS: METOCLOPRAMIDE 10 MG INJ IV PRN ×2 (09:18→18:16)
[2018-08-06] MEDS: MIDODRINE 5 MG TAB PO SCH ×3 (09:19→20:22)
--- NOTE | 2018-08-06 12:01 | CONS ---
Assessment/Plan Assessment/Plan Hospital Course (Demo Recall) Interval HX-no acute events overnight, tolerating diet well, s/p repeat paracentesis on 08/05/18 Alcoholic Cirrhosis of liver. -on transplant list at [facility] -AFP wnl 2. Anemia, no evidence of active bleeding, may be anemia of chronic disease. 3. Pancytopenia secondary to #1 4. 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 5. Cellulitis, status post skin graft and wound VAC. -followed by podiatry 6. Clostridium difficile colitis. US of abd 08/01: 1. Coarse nodular liver consistent with cirrhosis. No focal hepatic masses. 2. Status post cholecystectomy. No biliary duct dilatation. 3. Patent portal vein with pulsatile hepatopetal flow. 4. Suspect portal hypertension as demonstrated by moderate ascites. 5. Moderate size right pleural effusion as well. 6. Increased right renal cortical echogenicity suggest medical renal disease PLAN: Check INR, consider vitamin K and or FFP prior to procedures Continue rifaximin, Lactulose AFP within normal limit Ultrasound of the liver is also normal no evidence of any tumor Patient with no evidence of C. difficile colitis, remains stable off antibiotics Patient examined and plan of care discussed with Dr Gómez Consultation Date/Type/Reason Admit Date/Time Jul 04, 2018 at 14:22 Initial Consult Date 07/07/18 Requesting Provider: ANA SPICER Date/Time of Note DATE: 08/06/18 TIME: 11:53 Exam/Review of Systems Exam Vitals Vital Signs Date Temp Pulse Resp B/P (MAP) Pulse Ox O2 O2 Flow FiO2 Time Delivery Rate 08/06/18 97.8 82 18 97/48 (64) 94 08:00 08/04/18 Nasal 20:16 Cannula 08/04/18 2.0 14:10 Intake and Output 08/05/18 08/05/18 08/06/18 1515:00 23:00 07:00 IntakeIntake Total 240 ml 350 ml BalanceBalance 240 ml 350 ml Constitutional: alert, oriented (chronically ill appearing) Head: normocephalic, atraumatic Eyes: EOMI, nl lids ENMT: nl external ears & nose, nl lips & teeth, nl nasal mucosa & septum Neck: supple, non-tender Respiratory: clear to auscultation Cardiovascular: regular rate and rhythm, nl pulses Gastrointestinal: soft, non-tender (s/p repeat paracentesis on 08/05/18 with drainage bags) Extremities: edema (trace to BLE) 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: [employer] II-XII intact Results Result Diagram: 08/03/1852208/03/18522 Medications Medication Current Medications IV Flush (NS 3 ml) 3 ml PER PROTOCOL IV Last administered on 07/26/18 20:08; Admin Dose 3 ML; Start 07/04/18 at 18:30 Ondansetron HCl (Zofran Inj) 4 mg Q6H PRN IV NAUSEA/VOMITING Last administered on 08/06/18 11:44; Admin Dose 4 MG; Start 07/04/18 at 18:30 Docusate Sodium (Colace) 100 mg Q12H PRN PO .CONSTIPATION; Start 07/04/18 at 18:30 Albuterol (Proventil 0.083% (Neb)) 2.5 mg Q4H RESP THERAPY PRN HHN SHORTNESS OF BREATH; Start 07/04/18 at 18:30 Metoclopramide HCl (Reglan) 5 mg Q6H PRN IV NAUSEA Last administered on 08/06/18 09:18; Admin Dose 5 MG; Start 07/05/18 at 10:00 Midodrine (Proamatine) 10 mg TID PO Last administered on 08/06/18 09:19; Admin Dose 10 MG; Start 07/06/18 at 09:00 Albuterol (Ventolin Hfa) 2 puff Q4 INH Last administered on 08/06/18 09:17; Admin Dose 2 PUFF; Start 07/06/18 at 04:30 Ondansetron HCl (Zofran Odt) 4 mg Q6H PRN ODT NAUSEA AND/OR VOMITING Last administered on 08/01/18 03:37; Admin Dose 4 MG; Start 07/06/18 at 04:00 Rifaximin (Xifaxan) 200 mg TID PO Last administered on 08/06/18 09:17; Admin Dose 200 MG; Start 07/09/18 at 21:00 Acetaminophen/ Hydrocodone Bitart ([place] (5/325)) 1 tab Q6H PRN PO MODERATE PAIN LEVEL 4-6 Last administered on 08/05/18 21:04; Admin Dose 1 TAB; Start 07/14/18 at 17:30 Sodium Hypochlorite (Dakin'S (Dilute )) 1 applic DAILY IRR Last administered on 08/05/18 08:51; Admin Dose 1 APPLIC; Start 07/15/18 at 23:45 Simethicone (Mylicon) 80 mg Q6H PRN PO DISTENSION/GAS/BLOATING Last administered on 08/06/18 11:44; Admin Dose 80 MG; Start 07/16/18 at 15:30 Lactulose (Enulose) 10 gm DAILY PO Last administered on 08/06/18 09:17; Admin Dose 10 GM; Start 07/19/18 at 09:00 Spironolactone (Aldactone) 25 mg BID DIURETICS PO Last administered on 08/06/18 05:37; Admin Dose 25 MG; Start 07/19/18 at 13:00 Diphenhydramine HCl (Benadryl) 25 mg Q8H PRN IV PRURITUS/ITCHING Last administered on 08/04/18 07:15; Admin Dose 25 MG; Start 07/20/18 at 18:30 Morphine Sulfate (morphine) 6 mg Q4H PRN PO SEVERE PAIN LEVEL 7-10 Last administered on 08/05/18 05:23; Admin Dose 6 MG; Start 07/20/18 at 23:30 Trazodone HCl (Desyrel) 50 mg HS PRN PO insomnia Last administered on 08/06/18 01:56; Admin Dose 50 MG; Start 07/21/18 at 23:30 Nystatin (Nystatin Powder) 1 applic BID TOP Last administered on 08/06/18 09:16; Admin Dose 1 APPLIC; Start 07/25/18 at 21:00 Nystatin (Nystatin Oint) 1 applic TID TOP Last administered on 08/06/18 09:16; Admin Dose 1 APPLIC; Start 07/27/18 at 21:00 Hydromorphone HCl (Dilaudid) 1 mg Q3H PRN IV SEVERE PAIN LEVEL 7-10 Last administered on 08/06/18 09:18; Admin Dose 1 MG; Start 07/30/18 at 13:00 CATARINO JONES NP Aug 06, 2018 12:01
--- NOTE | 2018-08-06 12:11 | PN ---
Date/Time of Note Date/Time of Note DATE: 08/06/18 TIME: 12:11 Assessment/Plan VTE Prophylaxis Risk score (from Nsg)>0 risk: 6 Pharmacological prophylaxis: NA/contraindicated Pharm contraindication: liver dx Lines/Catheters IV Catheter Type (from Nrsg): Mid Line Urinary Cath still in place: No Assessment/Plan Hospital Course 1. Left foot wound s/p debridement with wound VAC- stable - s/p skin allograft and wound vac placement 07/27/18 - pain control effective - MRI foot shows no evidence of OM - Podiatry on board and appreciate recommendations. continue wound care, IV antibiotics and wound vac - Continue current antibiotics 2. SBP with klebsiella bacteremia: - Continue Abx course per ID 3. Cirrhosis with ascites - Status post paracentesis x4 - Continue Aldactone - Continue rifaximin/lactulose - has follow up with Dr. Gómez as outpatient, liver transplant preop EGD and colonoscopy shows nonbleeding varices and diverticulosis 4. Anemia - most likely 2/2 liver dz 5. Acute kidney injury likely secondary to hemodynamics and intravascular volume depletion-resolved - Nephrology consultation appreciated 6. Anemia of chronic disease - stable 7. C Diff diarrhea - s/p PO vanco course - resolving 8. Disposition - Continue current care. Pending placement to SNF for wound care, wound vac, and IV antibiotics - May need another paracentesis prior to discharge Result Diagram: 08/03/1852208/03/18 05 Subjective 24 Hr Interval Summary Constitutional: no complaints Exam/Review of Systems Exam Vitals Vital Signs Date Temp Pulse Resp B/P (MAP) Pulse Ox O2 O2 Flow FiO2 Time Delivery Rate 08/06/18 97.8 82 18 97/48 (64) 94 08:00 08/04/18 Nasal 20:16 Cannula 08/04/18 2.0 14:10 Intake and Output 08/05/18 08/05/18 08/06/18 1515:00 23:00 07:00 IntakeIntake Total 240 ml 350 ml BalanceBalance 240 ml 350 ml Constitutional: alert, oriented Respiratory: clear to auscultation Cardiovascular: regular rate and rhythm Gastrointestinal: soft; No distended Musculoskeletal: nl extremities to inspection Medications Medication Current Medications IV Flush (NS 3 ml) 3 ml PER PROTOCOL IV Last administered on 07/26/18at 20:08; Admin Dose 3 ML; Start 1/28/19 at 18:30 Ondansetron HCl (Zofran Inj) 4 mg Q6H PRN IV NAUSEA/VOMITING Last administered on 08/06/18 11:44; Admin Dose 4 MG; Start 07/04/18 at 18:30 Docusate Sodium (Colace) 100 mg Q12H PRN PO .CONSTIPATION; Start 07/04/18 at 18:30 Albuterol (Proventil 0.083% (Neb)) 2.5 mg Q4H RESP THERAPY PRN HHN SHORTNESS OF BREATH; Start 07/04/18 at 18:30 Metoclopramide HCl (Reglan) 5 mg Q6H PRN IV NAUSEA Last administered on 08/06/18 09:18; Admin Dose 5 MG; Start 07/05/18 at 10:00 Midodrine (Proamatine) 10 mg TID PO Last administered on 08/06/18 09:19; Admin Dose 10 MG; Start 07/06/18 at 09:00 Albuterol (Ventolin Hfa) 2 puff Q4 INH Last administered on 08/06/18 09:17; Admin Dose 2 PUFF; Start 07/06/18 at 04:30 Ondansetron HCl (Zofran Odt) 4 mg Q6H PRN ODT NAUSEA AND/OR VOMITING Last administered on 08/01/18 03:37; Admin Dose 4 MG; Start 07/06/18 at 04:00 Rifaximin (Xifaxan) 200 mg TID PO Last administered on 08/06/18 09:17; Admin Dose 200 MG; Start 07/09/18 at 21:00 Acetaminophen/ Hydrocodone Bitart ([place] (5/325)) 1 tab Q6H PRN PO MODERATE PAIN LEVEL 4-6 Last administered on 08/05/18 21:04; Admin Dose 1 TAB; Start 07/14/18 at 17:30 Sodium Hypochlorite (Dakin'S (Dilute )) 1 applic DAILY IRR Last administered on 08/05/18 08:51; Admin Dose 1 APPLIC; Start 07/15/18 at 23:45 Simethicone (Mylicon) 80 mg Q6H PRN PO DISTENSION/GAS/BLOATING Last adm inistered on 08/06/18 11:44; Admin Dose 80 MG; Start 07/16/18 at 15:30 Lactulose (Enulose) 10 gm DAILY PO Last administered on 08/06/18 09:17; Admin Dose 10 GM; Start 07/19/18 at 09:00 Spironolactone (Aldactone) 25 mg BID DIURETICS PO Last administered on 08/06/18 05:37; Admin Dose 25 MG; Start 07/19/18 at 13:00 Diphenhydramine HCl (Benadryl) 25 mg Q8H PRN IV PRURITUS/ITCHING Last administered on 08/04/18 07:15; Admin Dose 25 MG; Start 07/20/18 at 18:30 Morphine Sulfate (morphine) 6 mg Q4H PRN PO SEVERE PAIN LEVEL 7-10 Last administered on 08/05/18 05:23; Admin Dose 6 MG; Start 07/20/18 at 23:30 Trazodone HCl (Desyrel) 50 mg HS PRN PO insomnia Last administered on 08/06/18 01:56; Admin Dose 50 MG; Start 07/21/18 at 23:30 Nystatin (Nystatin Powder) 1 applic BID TOP Last administered on 08/06/18 09:16; Admin Dose 1 APPLIC; Start 07/25/18 at 21:00 Nystatin (Nystatin Oint) 1 applic TID TOP Last administered on 08/06/18 09:16; Admin Dose 1 APPLIC; Start 07/27/18 at 21:00 Hydromorphone HCl (Dilaudid) 1 mg Q3H PRN IV SEVERE PAIN LEVEL 7-10 Last administered on 08/06/18 09:18; Admin Dose 1 MG; Start 07/30/18 at 13:00 ANA SPICER Aug 06, 2018 12:11
[2018-08-06 12:51] VITALS: BP 106/57; PULSE 78
--- NOTE | 2018-08-06 13:47 | CONS ---
Assessment/Plan Assessment/Plan Hospital Course (Demo Recall) ID PROGRESS NOTE CURRENT ABX: DAY # => OFF ABX s/p Doxycycline IV + CIPRO + Vanco Liq PO + Rifaximin EVENTS * 48 yo female with cirrhosis, sepsis with bacteremia, C Diff colitis and large foot wound * s/p Paracentesis 07/29~1100: 5000 cc of clear yellow fluid was obtained. The fluid was not sent to the lab for further analysis. * POD#07/27/18-> s/p LEFT FOOT revision surgery w/application of skin graft last night ~1999 * s/p Paracentesis 08/06/18 ~5L removed 24H INTERVAL SUMMARY * Napping, awakens, POD #1 -- s/p para yesterday, No fevers, VSS MICRO/OTHER * 07/18/2018 LEFT FOOT WOUND CX: TISSUE (BIOPSY) CULTURE Final Organism 1 K.PNEUMONIAE SSP PNEUMONIAE QUANTITY SCANT GROWTH Organism 2 COAGULASE NEGATIVE STAPH QUANTITY SCANT GROWTH K PNE SPP COAG NEG M.I.C. RX M.I.C. RX --------- --- --------- --- CEFAZOLIN I S CEFOTAXIME S CIPROFLOXACIN <=0.25 S <=0.5 S CLINDAMYCIN <=0.25 S DOXYCYCLINE S ERYTHROMYCIN >=8 R GENTAMICIN <=1 S LEVOFLOXACIN <=0.12 S 0.25 S OXACILLIN <=0.25 S PENICILLIN-G R RIFAMPIN <=0.5 S VANCOMYCIN <=0.5 S TOBRAMYCIN <=1 S TRIMETHOPRIM/SULFAMETHOXAZOLE <=20 S <=10 S * 07/15/18 Wound Cx: WOUND CULTURE Final Organism 1 K.PNEUMONIAE SSP PNEUMONIAE QUANTITY ISOLATED FROM BROTH ONLY * 07/15/18 PARA (-) * 07/08/18 BCx (-) * 07/07/18 (+)C.Diff * 07/06/18 Urine (-) * 07/04/18 BCx (+) GNR BLOOD CULTURE Final Organism 1 K.PNEUMONIAE SSP PNEUMONIAE K PNE SPP M.I.C. RX --------- --- CEFAZOLIN I CEFOTAXIME S CIPROFLOXACIN <=0.25 S GENTAMICIN <=1 S LEVOFLOXACIN <=0.12 S TOBRAMYCIN <=1 S TRIMETHOPRIM/SULFAMETHOXAZOLE <=20 S PHYSICAL EXAMINATION: GENERAL: Afebrile, VSS --NAD HEENT: AT, NC, anicteric NECK: Supple, trach midline CHEST: Equal chest rise bilaterally, without dyspnea on observation HEART: Pulse RRR ABDOMEN: Distended EXTREMITIES: Warm, dry - LLEXT SHIRLEY wrapped SKIN: No rash, no diaphoresis ID ASSESSMENT 48 yo F admit with: 1. GNR Sepsis on admission w/lactic acidosis + BCx (+)GNR Kleb Pneumoniae due to #2 => RESOLVED * Leukocytosis due to C.Diff recurrence 2. Acute cellulitis LLEXT w/ left foot wound == >NO OSTEOMYELITIS * POD# 07/27/18-> s/p LEFT FOOT revision surgery w/application of skin graft * s/p I&D 07/18/28 with wound vac * 07/18/2018 LEFT FOOT WOUND CX: TISSUE (BIOPSY) CULTURE Final Organism 1 K.PNEUMONIAE SSP PNEUMONIAE Organism 2 COAGULASE NEGATIVE STAPH 3. ETOH Cirrhosis with persistent ascites and encephalopathy - improved w/lactulose * Status post paracentesis 07/29/18 & 08/06/18 * Patient is on the transplant list 4. Recurrent C.Diff colitis 5. Oliguric acute kidney injury = improved (-)MRSA Nares ABX ALLERGIES: KNDA INVASIVES: PIV CURRENT ABX: DAY # =>OFF ABX s/p Doxycycline IV + CIPRO + Vanco Liq PO + Rifaximin ID RECOMMENDATIONS/PLAN: 1. Continue to monitor patient OFF ABX 2. Avoid renal toxic ABX . Consultation Date/Type/Reason Admit Date/Time Jul 04, 2018 at 14:22 Initial Consult Date 07/07/18 Requesting Provider: ANA SPICER Date/Time of Note DATE: 08/06/18 TIME: 13:43 Exam/Review of Systems Exam Vitals Vital Signs Date Temp Pulse Resp B/P (MAP) Pulse Ox O2 O2 Flow FiO2 Time Delivery Rate 08/06/18 78 106/57 12:51 (73) 08/06/18 97.8 18 94 08:00 08/04/18 Nasal 20:16 Cannula 08/04/18 2.0 14:10 Intake and Output 08/05/18 08/05/18 08/06/18 1515:00 23:00 07:00 IntakeIntake Total 240 ml 350 ml BalanceBalance 240 ml 350 ml Results Result Diagram: 08/03/1852208/03/18522 Medications Medication Current Medications IV Flush (NS 3 ml) 3 ml PER PROTOCOL IV Last administered on 07/26/18 20:08; Admin Dose 3 ML; Start 07/04/18 at 18:30 Ondansetron HCl (Zofran Inj) 4 mg Q6H PRN IV NAUSEA/VOMITING Last administered on 08/06/18 11:44; Admin Dose 4 MG; Start 07/04/18 at 18:30 Docusate Sodium (Colace) 100 mg Q12H PRN PO .CONSTIPATION; Start 07/04/18 at 18:30 Albuterol (Proventil 0.083% (Neb)) 2.5 mg Q4H RESP THERAPY PRN HHN SHORTNESS OF BREATH; Start 07/04/18 at 18:30 Metoclopramide HCl (Reglan) 5 mg Q6H PRN IV NAUSEA Last administered on 08/06/18 09:18; Admin Dose 5 MG; Start 07/05/18 at 10:00 Midodrine (Proamatine) 10 mg TID PO Last administered on 08/06/18 12:45; Admin Dose 10 MG; Start 07/06/18 at 09:00 Albuterol (Ventolin Hfa) 2 puff Q4 INH Last administered on 08/06/18 12:45; Admin Dose 2 PUFF; Start 07/06/18 at 04:30 Ondansetron HCl (Zofran Odt) 4 mg Q6H PRN ODT NAUSEA AND/OR VOMITING Last administered on 08/01/18 03:37; Admin Dose 4 MG; Start 07/06/18 at 04:00 Rifaximin (Xifaxan) 200 mg TID PO Last administered on 08/06/18 12:45; Admin Dose 200 MG; Start 07/09/18 at 21:00 Acetaminophen/ Hydrocodone Bitart ([place] (5/325)) 1 tab Q6H PRN PO MODERATE PAIN LEVEL 4-6 Last administered on 08/05/18 21:04; Admin Dose 1 TAB; Start 07/14/18 at 17:30 Sodium Hypochlorite (Dakin'S (Dilute )) 1 applic DAILY IRR Last administered on 08/05/18 08:51; Admin Dose 1 APPLIC; Start 07/15/18 at 23:45 Simethicone (Mylicon) 80 mg Q6H PRN PO DISTENSION/GAS/BLOATING Last adminis tered on 08/06/18 11:44; Admin Dose 80 MG; Start 07/16/18 at 15:30 Lactulose (Enulose) 10 gm DAILY PO Last administered on 08/06/18 09:17; Admin Dose 10 GM; Start 07/19/18 at 09:00 Spironolactone (Aldactone) 25 mg BID DIURETICS PO Last administered on 08/06/18 05:37; Admin Dose 25 MG; Start 07/19/18 at 13:00 Diphenhydramine HCl (Benadryl) 25 mg Q8H PRN IV PRURITUS/ITCHING Last administered on 08/04/18 07:15; Admin Dose 25 MG; Start 07/20/18 at 18:30 Morphine Sulfate (morphine) 6 mg Q4H PRN PO SEVERE PAIN LEVEL 7-10 Last administered on 08/05/18 05:23; Admin Dose 6 MG; Start 07/20/18 at 23:30 Trazodone HCl (Desyrel) 50 mg HS PRN PO insomnia Last administered on 08/06/18 01:56; Admin Dose 50 MG; Start 07/21/18 at 23:30 Nystatin (Nystatin Powder) 1 applic BID TOP Last administered on 08/06/18 09:16; Admin Dose 1 APPLIC; Start 07/25/18 at 21:00 Nystatin (Nystatin Oint) 1 applic TID TOP Last administered on 08/06/18 12:52; Admin Dose 1 APPLIC; Start 07/27/18 at 21:00 Hydromorphone HCl (Dilaudid) 1 mg Q3H PRN IV SEVERE PAIN LEVEL 7-10 Last administered on 08/06/18at 12:44; Admin Dose 1 MG; Start 07/30/18 at 13:00 CHRIS BOWEN NP Aug 06, 2018 13:47
[2018-08-06 14:00] VITALS: BP 105/62; PULSE 79; RESP 20
[2018-08-06] MEDS: HYDROCODONE/APAP (5/325) TAB PO PRN (14:18)
[2018-08-06 20:00] VITALS: BP 102/53; PULSE 80; RESP 19
[2018-08-07] MEDS: HYDROmorphONE 1 MG/ML SYG IV PRN ×7 (01:44→21:08)
[2018-08-07] MEDS: METOCLOPRAMIDE 10 MG INJ IV PRN ×4 (01:44→21:07)
[2018-08-07] MEDS: ALBUTEROL HFA 8 GM INHALER INH SCH ×6 (01:55→21:05)
[2018-08-07 02:00] VITALS: BP 105/64; PULSE 80; RESP 19
[2018-08-07] MEDS: SPIRONOLACTONE 25 MG TAB PO SCH ×2 (05:24→17:51)
[2018-08-07] MEDS: ONDANSETRON 4 MG INJ IV PRN ×3 (05:26→18:08)
[2018-08-07 07:53] VITALS: BP 119/57; PULSE 83; RESP 16
[2018-08-07] MEDS: LACTULOSE 30ML CUP PO SCH (08:52)
[2018-08-07] MEDS: MIDODRINE 5 MG TAB PO SCH ×3 (08:53→21:04)
[2018-08-07] MEDS: RIFAXIMIN 200 MG TAB PO SCH ×3 (08:53→21:05)
[2018-08-07] MEDS: NYSTATIN 30 GM POWDER BTL TOP SCH ×2 (08:58→21:06)
[2018-08-07] MEDS: NYSTATIN 15 GM OINT TOP SCH ×3 (08:58→21:06)
[2018-08-07] MEDS: SODIUM HYPOCHLORITE (1/40) 1 APPLIC BTL IRR SCH (08:59)
[2018-08-07 14:52] VITALS: BP 102/50; PULSE 79; RESP 16
--- NOTE | 2018-08-07 16:30 | CONS ---
Assessment/Plan Assessment/Plan Hospital Course (Demo Recall) Alert, feels good, no fevers Microbiology: Blood culture grew Klebsiella pneumonia on July 04 susceptible to Cipro and Levaquin, stool for C. difficile positive, urine culture negative MRSA swab negative, L foot wound culture grew Klebsiella pneumoniae susceptible to ming quinolones and staph species Physical examination: Chronically ill-appearing middle-aged woman who is in no distress. Head atraumatic normocephalic sclera nonicteric vehicle mucosa dry neck is supple chest rise symmetrical breath sounds diminished at bases. Heart: S1-S2. Abdomen soft bowel sounds present extremities with bilateral edema, left lower extremity dressing intact Assessment: 1. S/p sepsis with Klebsiella pneumonia bacteremia likely secondary to SBP vs #2 2. Left lower extremity abscess/ cellulitis==> neg OM, s/p i/d 07/18/18 with wound vac 3. C. difficile colitis==> treated 4. Alcoholic liver cirrhosis==> on tx list at [facility] 5. Recurrent ascites 6. Anemia and thrombocytopenia Plan: Remains stable, off abx, continue wound care per podiatry recommendations, pending SNF Consultation Date/Type/Reason Admit Date/Time Jul 04, 2018 at 14:22 Initial Consult Date 07/07/18 Type of Consult id Requesting Provider: ANA SPICER Date/Time of Note DATE: 08/07/18 TIME: 16:30 Exam/Review of Systems Exam Vitals Vital Signs Date Temp Pulse Resp B/P (MAP) Pulse Ox O2 O2 Flow FiO2 Time Delivery Rate 08/07/18 97.9 79 16 102/50 96 14:52 (67) 08/04/18 Nasal 20:16 Cannula 08/04/18 2.0 14:10 Intake and Output 08/06/18 08/06/18 08/07/18 1515:00 23:00 07:00 IntakeIntake Total 710 ml 250 ml BalanceBalance 710 ml 250 ml Results Result Diagram: 08/03/1852208/03/18522 Medications Medication Current Medications IV Flush (NS 3 ml) 3 ml PER PROTOCOL IV Last administered on 07/26/18at 20:08; Admin Dose 3 ML; Start 07/04/18 at 18:30 Ondansetron HCl (Zofran Inj) 4 mg Q6H PRN IV NAUSEA/VOMITING Last administered on 3/3/19at 11:48; Admin Dose 4 MG; Start 07/04/18 at 18:30 Docusate Sodium (Colace) 100 mg Q12H PRN PO .CONSTIPATION; Start 07/04/18 at 18:30 Albuterol (Proventil 0.083% (Neb)) 2.5 mg Q4H RESP THERAPY PRN HHN SHORTNESS OF BREATH; Start 07/04/18 at 18:30 Metoclopramide HCl (Reglan) 5 mg Q6H PRN IV NAUSEA Last administered on 08/07/18 15:05; Admin Dose 5 MG; Start 07/05/18 at 10:00 Midodrine (Proamatine) 10 mg TID PO Last administered on 08/07/18 13:08; Admin Dose 10 MG; Start 07/06/18 at 09:00 Albuterol (Ventolin Hfa) 2 puff Q4 INH Last administered on 08/07/18 13:07; Ad min Dose 2 PUFF; Start 07/06/18 at 04:30 Ondansetron HCl (Zofran Odt) 4 mg Q6H PRN ODT NAUSEA AND/OR VOMITING Last administered on 08/01/18 03:37; Admin Dose 4 MG; Start 07/06/18 at 04:00 Rifaximin (Xifaxan) 200 mg TID PO Last administered on 08/07/18 13:04; Admin Dose 200 MG; Start 07/09/18 at 21:00 Acetaminophen/ Hydrocodone Bitart ([place] (5/325)) 1 tab Q6H PRN PO MODERATE PAIN LEVEL 4-6 Last administered on 08/06/18 14:18; Admin Dose 1 TAB; Start 07/14/18 at 17:30 Sodium Hypochlorite (Dakin'S (Dilute 40)) 1 applic DAILY IRR Last administered on 08/05/18 08:51; Admin Dose 1 APPLIC; Start 07/15/18 at 23:45 Simethicone (Mylicon) 80 mg Q6H PRN PO DISTENSION/GAS/BLOATING Last administered on 08/07/18 15:05; Admin Dose 80 MG; Start 07/16/18 at 15:30 Lactulose (Enulose) 10 gm DAILY PO Last administered on 3/3/19at 08:52; Admin Dose 10 GM; Start 07/19/18 at 09:00 Spironolactone (Aldactone) 25 mg BID DIURETICS PO Last administered on 08/07/18 05:24; Admin Dose 25 MG; Start 07/19/18 at 13:00 Diphenhydramine HCl (Benadryl) 25 mg Q8H PRN IV PRURITUS/ITCHING Last administered on 08/04/18 07:15; Admin Dose 25 MG; Start 07/20/18 at 18:30 Morphine Sulfate (morphine) 6 mg Q4H PRN PO SEVERE PAIN LEVEL 7-10 Last administered on 08/05/18 05:23; Admin Dose 6 MG; Start 07/20/18 at 23:30 Trazodone HCl (Desyrel) 50 mg HS PRN PO insomnia Last administered on 08/06/18 22:37; Admin Dose 50 MG; Start 07/21/18 at 23:30 Nystatin (Nystatin Powder) 1 applic BID TOP Last administered on 08/07/18 08:58; Admin Dose 1 APPLIC; Start 07/25/18 at 21:00 Nystatin (Nystatin Oint) 1 applic TID TOP Last administered on 08/07/18 13:06; Admin Dose 1 APPLIC; Start 07/27/18 at 21:00 Hydromorphone HCl (Dilaudid) 1 mg Q3H PRN IV SEVERE PAIN LEVEL 7-10 Last administered on 08/07/18 15:05; Admin Dose 1 MG; Start 07/30/18 at 13:00 EMA MUELLER NP Aug 07, 2018 16:30
--- NOTE | 2018-08-07 17:14 | CONS ---
Assessment/Plan Assessment/Plan Hospital Course (Demo Recall) Interval HX- no acute events overnight, tolerating diet well, s/p repeat paracentesis on 08/05/18 Alcoholic Cirrhosis of liver. -on transplant list at [facility] -AFP wnl 2. Anemia, no evidence of active bleeding, may be anemia of chronic disease. 3. Pancytopenia secondary to #1 4. 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 5. Cellulitis, status post skin graft and wound VAC. -followed by podiatry 6. Clostridium difficile colitis. US of abd 08/01: 1. Coarse nodular liver consistent with cirrhosis. No focal hepatic masses. 2. Status post cholecystectomy. No biliary duct dilatation. 3. Patent portal vein with pulsatile hepatopetal flow. 4. Suspect portal hypertension as demonstrated by moderate ascites. 5. Moderate size right pleural effusion as well. 6. Increased right renal cortical echogenicity suggest medical renal disease PLAN: Consider vitamin K and or FFP prior to procedures Continue rifaximin, Lactulose AFP within normal limit Ultrasound of the liver is also normal no evidence of any tumor Patient with no evidence of C. difficile colitis, remains stable off antibiotics Per nursing staff plan is for SNF Patient examined and plan of care discussed with Dr Gómez Consultation Date/Type/Reason Admit Date/Time Jul 04, 2018 at 14:22 Initial Consult Date 07/07/18 Requesting Provider: ANA SPICER Date/Time of Note DATE: 08/07/18 TIME: 17:11 Exam/Review of Systems Exam Vitals Vital Signs Date Temp Pulse Resp B/P (MAP) Pulse Ox O2 O2 Flow FiO2 Time Delivery Rate 08/07/18 97.9 79 16 102/50 96 14:52 (67) 08/04/18 Nasal 20:16 Cannula 08/04/18 2.0 14:10 Intake and Output 08/06/18 08/06/18 08/07/18 1515:00 23:00 07:00 IntakeIntake Total 710 ml 250 ml BalanceBalance 710 ml 250 ml Constitutional: alert, oriented Psych: no complaints Head: normocephalic, atraumatic Eyes: nl conjunctiva ENMT: nl external ears & nose Neck: supple Respiratory: clear to auscultation Cardiovascular: regular rate and rhythm Gastrointestinal: soft, non-tender, other (obese, with paracentesis drains with minimal drainage) Musculoskeletal: nl extremities to inspection Extremities: normal pulses 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: LEGAL OPERATIONS MANAGER II-XII intact Results Result Diagram: 08/03/1852208/03/18522 Medications Medication Current Medications IV Flush (NS 3 ml) 3 ml PER PROTOCOL IV Last administered on 07/26/18 20:08; Admin Dose 3 ML; Start 07/04/18 at 18:30 Ondansetron HCl (Zofran Inj) 4 mg Q6H PRN IV NAUSEA/VOMITING Last administered on 08/07/18 11:48; Admin Dose 4 MG; Start 07/04/18 at 18:30 Docusate Sodium (Colace) 100 mg Q12H PRN PO .CONSTIPATION; Start 07/04/18 at 18:30 Albuterol (Proventil 0.083% (Neb)) 2.5 mg Q4H RESP THERAPY PRN HHN SHORTNESS OF BREATH; Start 07/04/18 at 18:30 Metoclopramide HCl (Reglan) 5 mg Q6H PRN IV NAUSEA Last administered on 08/07/18 15:05; Admin Dose 5 MG; Start 07/05/18 at 10:00 Midodrine (Proamatine) 10 mg TID PO Last administered on 08/07/18 13:08; Admin Dose 10 MG; Start 07/06/18 at 09:00 Albuterol (Ventolin Hfa) 2 puff Q4 INH Last administered on 08/07/18 13:07; Admin Dose 2 PUFF; Start 07/06/18 at 04:30 Ondansetron HCl (Zofran Odt) 4 mg Q6H PRN ODT NAUSEA AND/OR VOMITING Last administered on 08/01/18 03:37; Admin Dose 4 MG; Start 07/06/18 at 04:00 Rifaximin (Xifaxan) 200 mg TID PO Last administered on 08/07/18 13:04; Admin Dose 200 MG; Start 07/09/18 at 21:00 Acetaminophen/ Hydrocodone Bitart ([place] (5/325)) 1 tab Q6H PRN PO MODERATE PAIN LEVEL 4-6 Last administered on 08/06/18 14:18; Admin Dose 1 TAB; Start 07/14/18 at 17:30 Sodium Hypochlorite (Dakin'S (Dilute 1/40)) 1 applic DAILY IRR Last administered on 08/05/18 08:51; Admin Dose 1 APPLIC; Start 07/15/18 at 23:45 Simethicone (Mylicon) 80 mg Q6H PRN PO DISTENSION/GAS/BLOATING Last administered on 08/07/18 15:05; Admin Dose 80 MG; Start 07/16/18 at 15:30 Lactulose (Enulose) 10 gm DAILY PO Last administered on 08/07/18 08:52; Admin Dose 10 GM; Start 07/19/18 at 09:00 Spironolactone (Aldactone) 25 mg BID DIURETICS PO Last administered on 08/07/18 05:24; Admin Dose 25 MG; Start 07/19/18 at 13:00 Diphenhydramine HCl (Benadryl) 25 mg Q8H PRN IV PRURITUS/ITCHING Last administered on 08/04/18 07:15; Admin Dose 25 MG; Start 07/20/18 at 18:30 Morphine Sulfate (morphine) 6 mg Q4H PRN PO SEVERE PAIN LEVEL 7-10 Last adminis tered on 08/05/18 05:23; Admin Dose 6 MG; Start 07/20/18 at 23:30 Trazodone HCl (Desyrel) 50 mg HS PRN PO insomnia Last administered on 08/06/18 22:37; Admin Dose 50 MG; Start 07/21/18 at 23:30 Nystatin (Nystatin Powder) 1 applic BID TOP Last administered on 08/07/18 08:58; Admin Dose 1 APPLIC; Start 07/25/18 at 21:00 Nystatin (Nystatin Oint) 1 applic TID TOP Last administered on 08/07/18 13:06; Admin Dose 1 APPLIC; Start 07/27/18 at 21:00 Hydromorphone HCl (Dilaudid) 1 mg Q3H PRN IV SEVERE PAIN LEVEL 7-10 Last administered on 08/07/18 15:05; Admin Dose 1 MG; Start 07/30/18 at 13:00 CATARINO JONES NP Aug 07, 2018 17:14
--- NOTE | 2018-08-07 18:43 | PN ---
Date/Time of Note Date/Time of Note DATE: 08/07/18 TIME: 18:41 Assessment/Plan VTE Prophylaxis Risk score (from Nsg)>0 risk: 1 Pharmacological prophylaxis: NA/contraindicated Pharm contraindication: liver dx Lines/Catheters IV Catheter Type (from Nrsg): Mid Line Urinary Cath still in place: No Assessment/Plan Hospital Course 1. Left foot wound s/p debridement with wound VAC- stable - s/p skin allograft and wound vac placement 07/27/18 - pain control effective - MRI foot shows no evidence of OM - Podiatry on board and appreciate recommendations. continue wound care, IV antibiotics and wound vac - Continue current antibiotics 2. SBP with klebsiella bacteremia: - Continue Abx course per ID 3. Cirrhosis with ascites - Status post paracentesis x4, patient will have another paracentesis ordered for tomorrow - Continue Aldactone but increased dose to 50 mg p.o. twice daily, monitor BP - Continue rifaximin/lactulose - has follow up with Dr. Gómez as outpatient, liver transplant preop EGD and colonoscopy shows nonbleeding varices and diverticulosis 4. Anemia - most likely 2/2 liver dz 5. Acute kidney injury likely secondary to hemodynamics and intravascular volume depletion-resolved - Nephrology consultation appreciated 6. Anemia of chronic disease - stable 7. C Diff diarrhea - s/p PO vanco course - resolving 8. Disposition - Continue current care. Pending placement to SNF for wound care, wound vac, and IV antibiotics Result Diagram: 08/03/1852208/03/18 0523 Subjective 24 Hr Interval Summary Constitutional: no complaints Exam/Review of Systems Exam Vitals Vital Signs Date Temp Pulse Resp B/P (MAP) Pulse Ox O2 O2 Flow FiO2 Time Delivery Rate 08/07/18 97.9 79 16 102/50 96 14:52 (67) 08/04/18 Nasal 20:16 Cannula 08/04/18 2.0 14:10 Intake and Output 08/06/18 08/06/18 08/07/18 1414:59 22:59 06:59 IntakeIntake Total 710 ml 250 ml BalanceBalance 710 ml 250 ml Constitutional: alert, oriented Respiratory: clear to auscultation Cardiovascular: regular rate and rhythm Gastrointestinal: soft, distended Musculoskeletal: nl extremities to inspection Medications Medication Current Medications IV Flush (NS 3 ml) 3 ml PER PROTOCOL IV Last administered on 07/26/18 20:08; Admin Dose 3 ML; Start 07/04/18 at 18:30 Ondansetron HCl (Zofran Inj) 4 mg Q6H PRN IV NAUSEA/VOMITING Last administered on 08/07/18 18:08; Admin Dose 4 MG; Start 07/04/18 at 18:30 Docusate Sodium (Colace) 100 mg Q12H PRN PO .CONSTIPATION; Start 07/04/18 at 18:30 Albuterol (Proventil 0.083% (Neb)) 2.5 mg Q4H RESP THERAPY PRN HHN SHORTNESS OF BREATH; Start 07/04/18 at 18:30 Metoclopramide HCl (Reglan) 5 mg Q6H PRN IV NAUSEA Last administered on 08/07/18 15:05; Admin Dose 5 MG; Start 07/05/18 at 10:00 Midodrine (Proamatine) 10 mg TID PO Last administered on 08/07/18 13:08; Admin Dose 10 MG; Start 07/06/18 at 09:00 Albuterol (Ventolin Hfa) 2 puff Q4 INH Last administered on 08/07/18 17:52; Admin Dose 2 PUFF; Start 07/06/18 at 04:30 Ondansetron HCl (Zofran Odt) 4 mg Q6H PRN ODT NAUSEA AND/OR VOMITING Last administered on 08/01/18 03:37; Admin Dose 4 MG; Start 07/06/18 at 04:00 Rifaximin (Xifaxan) 200 mg TID PO Last administered on 08/07/18 13:04; Admin Dose 200 MG; Start 07/09/18 at 21:00 Acetaminophen/ Hydrocodone Bitart ([place] (5/325)) 1 tab Q6H PRN PO MODERATE PAIN LEVEL 4-6 Last administered on 08/06/18 14:18; Admin Dose 1 TAB; Start 07/14/18 at 17:30 Sodium Hypochlorite (Dakin'S (Dilute )) 1 applic DAILY IRR Last administered on 08/05/18 08:51; Admin Dose 1 APPLIC; Start 07/15/18 at 23:45 Simethicone (Mylicon) 80 mg Q6H PRN PO DISTENSION/GAS/BLOATING Last administered on 08/07/18 15:05; Admin Dose 80 MG; Start 07/16/18 at 15:30 Lactulose (Enulose) 10 gm DAILY PO Last administered on 08/07/18 08:52; Admin Dose 10 GM; Start 07/19/18 at 09:00 Spironolactone (Aldactone) 25 mg BID DIURETICS PO Last administered on 08/07/18 17:51; Admin Dose 25 MG; Start 07/19/18 at 13:00 Diphenhydramine HCl (Benadryl) 25 mg Q8H PRN IV PRURITUS/ITCHING Last administered on 08/04/18 07:15; Admin Dose 25 MG; Start 07/20/18 at 18:30 Morphine Sulfate (morphine) 6 mg Q4H PRN PO SEVERE PAIN LEVEL 7-10 Last ad ministered on 08/05/18 05:23; Admin Dose 6 MG; Start 07/20/18 at 23:30 Trazodone HCl (Desyrel) 50 mg HS PRN PO insomnia Last administered on 08/06/18 22:37; Admin Dose 50 MG; Start 07/21/18 at 23:30 Nystatin (Nystatin Powder) 1 applic BID TOP Last administered on 08/07/18 08:58; Admin Dose 1 APPLIC; Start 07/25/18 at 21:00 Nystatin (Nystatin Oint) 1 applic TID TOP Last administered on 08/07/18 13:06; Admin Dose 1 APPLIC; Start 07/27/18 at 21:00 Hydromorphone HCl (Dilaudid) 1 mg Q3H PRN IV SEVERE PAIN LEVEL 7-10 Last administered on 08/07/18 18:08; Admin Dose 1 MG; Start 07/30/18 at 13:00 ANA SPICER Aug 07, 2018 18:43
[2018-08-07 20:00] VITALS: BP 109/53; PULSE 84; RESP 18
[2018-08-07] MEDS: traZODone 50 MG TAB PO PRN (23:30)
[2018-08-08] VITALS (7 sets, daily range): BP systolic 94–121; BP diastolic 46–56; PULSE 78–85; RESP 17–20
[2018-08-08] MEDS: ONDANSETRON 4 MG INJ IV PRN ×4 (00:43→21:37)
[2018-08-08] MEDS: HYDROmorphONE 1 MG/ML SYG IV PRN ×5 (00:44→21:37)
[2018-08-08] MEDS: ALBUTEROL HFA 8 GM INHALER INH SCH ×6 (01:00→21:44)
[2018-08-08] MEDS: SPIRONOLACTONE 50 MG TAB PO SCH ×2 (06:17→18:26)
[2018-08-08] MEDS: HYDROCODONE/APAP (5/325) TAB PO PRN (06:18)
--- NOTE | 2018-08-08 07:41 | CONS ---
Assessment/Plan Assessment/Plan Hospital Course (Demo Recall) 48 yo female presents with left foot cellulitis 1. Alcoholic Cirrhosis of liver. -on transplant list at [facility] -AFP wnl 2. Anemia, no evidence of active bleeding, may be anemia of chronic disease. 3. Pancytopenia secondary to #1 4. 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 5. Cellulitis, status post skin graft and wound VAC. -K. pneumoniae and coagulase neg staph in wound -followed by podiatry 6. Clostridium difficile colitis. -resolved 7. S/P colonoscopy 08/04 found diverticulosis and external hemorrhoids 8. S/P EGD 08/04 shows congestive gastropathy, esophageal varices US of abd 08/01: 1. Coarse nodular liver consistent with cirrhosis. No focal hepatic masses. 2. Status post cholecystectomy. No biliary duct dilatation. 3. Patent portal vein with pulsatile hepatopetal flow. 4. Suspect portal hypertension as demonstrated by moderate ascites. 5. Moderate size right pleural effusion as well. 6. Increased right renal cortical echogenicity suggest medical renal disease PLAN: Continue present care Paracentesis as needed Monitor for GI bleeding High fiber diet Pt examined and plan of care discussed with Dr. Gómez Consultation Date/Type/Reason Admit Date/Time Jul 04, 2018 at 14:22 Initial Consult Date 07/07/18 Requesting Provider: ANA SPICER Date/Time of Note DATE: 08/08/18 TIME: 07:37 24 HR Interval Summary Free Text/Dictation Pt abdominal pain improved, states more pressure like. Last paracentesis done on Saturday 08/05 with 5 liters removed. Exam/Review of Systems Exam Vitals Vital Signs Date Temp Pulse Resp B/P (MAP) Pulse Ox O2 O2 Flow FiO2 Time Delivery Rate 08/08/18 98.0 83 18 108/56 96 02:03 (73) 08/04/18 Nasal 20:16 Cannula 08/04/18 2.0 14:10 Intake and Output 08/07/18 08/07/18 08/08/18 1515:00 23:00 07:00 IntakeIntake Total 400 ml 240 ml BalanceBalance 400 ml 240 ml Constitutional: alert, oriented Psych: no complaints Head: normocephalic Eyes: PERRL, icteric Respiratory: clear to auscultation Cardiovascular: regular rate and rhythm Gastrointestinal: soft, ascites Extremities: other (LLE edema with french bandage around wound vac site. BLE warm) 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: nl mental status, nl speech Medications Medication Current Medications IV Flush (NS 3 ml) 3 ml PER PROTOCOL IV Last administered on 07/26/18 20:08; Admin Dose 3 ML; Start 07/04/18 at 18:30 Ondansetron HCl (Zofran Inj) 4 mg Q6H PRN IV NAUSEA/VOMITING Last administered on 08/08/18 00:43; Admin Dose 4 MG; Start 07/04/18 at 18:30 Docusate Sodium (Colace) 100 mg Q12H PRN PO .CONSTIPATION; Start 07/04/18 at 18:30 Albuterol (Proventil 0.083% (Neb)) 2.5 mg Q4H RESP THERAPY PRN HHN SHORTNESS OF BREATH; Start 07/04/18 at 18:30 Metoclopramide HCl (Reglan) 5 mg Q6H PRN IV NAUSEA Last administered on 08/07/18 21:07; Admin Dose 5 MG; Start 07/05/18 at 10:00 Midodrine (Proamatine) 10 mg TID PO Last administered on 08/07/18 21:04; Admin Dose 10 MG; Start 07/06/18 at 09:00 Albuterol (Ventolin Hfa) 2 puff Q4 INH Last administered on 08/08/18 06:19; Admin Dose 2 PUFF; Start 07/06/18 at 04:30 Ondansetron HCl (Zofran Odt) 4 mg Q6H PRN ODT NAUSEA AND/OR VOMITING Last administered on 08/01/18 03:37; Admin Dose 4 MG; Start 07/06/18 at 04:00 Rifaximin (Xifaxan) 200 mg TID PO Last administered on 08/07/18 21:05; Admin Do se 200 MG; Start 07/09/18 at 21:00 Acetaminophen/ Hydrocodone Bitart ([place] (5/325)) 1 tab Q6H PRN PO MODERATE PAIN LEVEL 4-6 Last administered on 08/08/18 06:18; Admin Dose 1 TAB; Start 07/14/18 at 17:30 Sodium Hypochlorite (Dakin'S (Dilute )) 1 applic DAILY IRR Last administered on 08/05/18 08:51; Admin Dose 1 APPLIC; Start 07/15/18 at 23:45 Simethicone (Mylicon) 80 mg Q6H PRN PO DISTENSION/GAS/BLOATING Last administered on 08/07/18 15:05; Admin Dose 80 MG; Start 07/16/18 at 15:30 Lactulose (Enulose) 10 gm DAILY PO Last administered on 08/07/18 08:52; Admin Dose 10 GM; Start 07/19/18 at 09:00 Diphenhydramine HCl (Benadryl) 25 mg Q8H PRN IV PRURITUS/ITCHING Last administered on 08/04/18 07:15; Admin Dose 25 MG; Start 07/20/18 at 18:30 Morphine Sulfate (morphine) 6 mg Q4H PRN PO SEVERE PAIN LEVEL 7-10 Last administered on 08/05/18 05:23; Admin Dose 6 MG; Start 07/20/18 at 23:30 Trazodone HCl (Desyrel) 50 mg HS PRN PO insomnia Last administered on 08/07/18 23:30; Admin Dose 50 MG; Start 07/21/18 at 23:30 Nystatin (Nystatin Powder) 1 applic BID TOP Last administered on 08/07/18 21:06; Admin Dose 1 APPLIC; Start 07/25/18 at 21:00 Nystatin (Nystatin Oint) 1 applic TID TOP Last administered on 08/07/18 21:06; Admin Dose 1 APPLIC; Start 07/27/18 at 21:00 Hydromorphone HCl (Dilaudid) 1 mg Q3H PRN IV SEVERE PAIN LEVEL 7-10 Last administered on 08/08/18 00:44; Admin Dose 1 MG; Start 07/30/18 at 13:00 Spironolactone (Aldactone) 50 mg BID DIURETICS PO Last administered on 08/08/18 06:17; Admin Dose 50 MG; Start 08/08/18 at 06:00 SARA EISENBERG Aug 08, 2018 07:41
[2018-08-08] MEDS: LIDOCAINE 1% (MDV) 20 ML INJ ONE ×2 (09:23→09:28)
[2018-08-08] MEDS: LACTULOSE 30ML CUP PO SCH (10:08)
--- NOTE | 2018-08-08 10:08 | PN ---
Date/Time of Note Date/Time of Note DATE: 08/08/18 TIME: 10:08 Assessment/Plan VTE Prophylaxis Risk score (from Ns)>0 risk: 7 SCD applied (from Ns): Yes Pharmacological prophylaxis: NA/contraindicated Pharm contraindication: thrombocytopenia Lines/Catheters IV Catheter Type (from Nrsg): Mid Line Urinary Cath still in place: No Assessment/Plan Assessment/Plan 1. Left foot wound s/p debridement with wound VAC- stable - s/p skin allograft and wound vac placement 07/27/18 - pain control effective - MRI foot shows no evidence of OM - Podiatry on board and appreciate recommendations. continue wound care and wound vac - Completed course of antibiotics 2. SBP with klebsiella bacteremia: - finished course of antibiotics - last culture from paracentesis negative 3. Cirrhosis with ascites - Status post paracentesis x5 - Continue current increased dose of Aldactone - Continue rifaximin/lactulose - has follow up with Dr. Gómez as outpatient, liver transplant preop EGD and colonoscopy shows nonbleeding varices and diverticulosis 4. Anemia - most likely 2/2 liver dz 5. Acute kidney injury likely secondary to hemodynamics and intravascular vol ume depletion-resolved - Nephrology consultation appreciated 6. Anemia of chronic disease - stable 7. C Diff diarrhea - s/p PO vanco course - resolving 8. Disposition - Pending SNF placement - encouraged more mobility with PT Subjective 24 Hr Interval Summary Free Text/Dictation Patient states shes feeling better. Had paracentesis today which has helped relieve pain in abdominal area but now has tenderness in breast area which is chronic. Exam/Review of Systems Exam Vitals Vital Signs Date Temp Pulse Resp B/P (MAP) Pulse Ox O2 O2 Flow FiO2 Time Delivery Rate 08/08/18 98.0 83 18 108/56 96 02:03 (73) 08/04/18 Nasal 20:16 Cannula 08/04/18 2.0 14:10 Intake and Output 08/07/18 08/07/18 08/08/18 1515:00 23:00 07:00 IntakeIntake Total 400 ml 240 ml OutputOutput Total 200 ml BalanceBalance 400 ml 40 ml Exam General: Patient is laying in bed, no acute distress HEENT: scleral icterus Neck: Supple Lungs: clear to auscultation bilaterally. no wheezing or rhonchi CVS: S1, S2, regular rate and rhythm, no obvious murmurs Gurwinder: non-tender to palpation, bowel sounds heard. 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: Moves all extremities spontaneously Skin: No new skin lesions Medications Medication Current Medications IV Flush (NS 3 ml) 3 ml PER PROTOCOL IV Last administered on 07/26/18 20:08; Admin Dose 3 ML; Start 07/04/18 at 18:30 Ondansetron HCl (Zofran Inj) 4 mg Q6H PRN IV NAUSEA/VOMITING Last administered on 08/08/18 00:43; Admin Dose 4 MG; Start 07/04/18 at 18:30 Docusate Sodium (Colace) 100 mg Q12H PRN PO .CONSTIPATION; Start 07/04/18 at 18:30 Albuterol (Proventil 0.083% (Neb)) 2.5 mg Q4H RESP THERAPY PRN HHN SHORTNESS OF BREATH; Start 07/04/18 at 18:30 Metoclopramide HCl (Reglan) 5 mg Q6H PRN IV NAUSEA Last administered on 08/07/18 21:07; Admin Dose 5 MG; Start 07/05/18 at 10:00 Midodrine (Proamatine) 10 mg TID PO Last administered on 08/07/18 21:04; Admin Dose 10 MG; Start 07/06/18 at 09:00 Albuterol (Ventolin Hfa) 2 puff Q4 INH Last administered on 08/08/18 06:19; Admin Dose 2 PUFF; Start 07/06/18 at 04:30 Ondansetron HCl (Zofran Odt) 4 mg Q6H PRN ODT NAUSEA AND/OR VOMITING Last administered on 08/01/18 03:37; Admin Dose 4 MG; Start 07/06/18 at 04:00 Rifaximin (Xifaxan) 200 mg TID PO Last administered on 08/07/18 21:05; Admin Dose 200 MG; Start 07/09/18 at 21:00 Acetaminophen/ Hydrocodone Bitart ([place] (5/325)) 1 tab Q6H PRN PO MODERATE PAIN LEVEL 4-6 Last administered on 08/08/18 06:18; Admin Dose 1 TAB; Start 07/14/18 at 17:30 Sodium Hypochlorite (Dakin'S (Dilute )) 1 applic DAILY IRR Last administered on 08/05/18 08:51; Admin Dose 1 APPLIC; Start 07/15/18 at 23:45 Simethicone (Mylicon) 80 mg Q6H PRN PO DISTENSION/GAS/BLOATING Last admi nistered on 08/07/18 15:05; Admin Dose 80 MG; Start 07/16/18 at 15:30 Lactulose (Enulose) 10 gm DAILY PO Last administered on 08/07/18 08:52; Admin Dose 10 GM; Start 07/19/18 at 09:00 Diphenhydramine HCl (Benadryl) 25 mg Q8H PRN IV PRURITUS/ITCHING Last a dministered on 08/04/18 07:15; Admin Dose 25 MG; Start 07/20/18 at 18:30 Morphine Sulfate (morphine) 6 mg Q4H PRN PO SEVERE PAIN LEVEL 7-10 Last administered on 08/05/18 05:23; Admin Dose 6 MG; Start 07/20/18 at 23:30 Trazodone HCl (Desyrel) 50 mg HS PRN PO insomnia Last administered on 08/07/18 23:30; Admin Dose 50 MG; Start 07/21/18 at 23:30 Nystatin (Nystatin Powder) 1 applic BID TOP Last administered on 08/07/18 21:06; Admin Dose 1 APPLIC; Start 07/25/18 at 21:00 Nystatin (Nystatin Oint) 1 applic TID TOP Last administered on 08/07/18 21:06; Admin Dose 1 APPLIC; Start 07/27/18 at 21:00 Hydromorphone HCl (Dilaudid) 1 mg Q3H PRN IV SEVERE PAIN LEVEL 7-10 Last administered on 08/08/18 00:44; Admin Dose 1 MG; Start 07/30/18 at 13:00 Spironolactone (Aldactone) 50 mg BID DIURETICS PO Last administered on 08/08/18 06:17; Admin Dose 50 MG; Start 08/08/18 at 06:00 LOUIE RUIZ MD Aug 08, 2018 10:08
[2018-08-08] MEDS: MIDODRINE 5 MG TAB PO SCH ×3 (10:09→21:41)
[2018-08-08] MEDS: RIFAXIMIN 200 MG TAB PO SCH ×3 (10:09→21:37)
[2018-08-08] MEDS: NYSTATIN 15 GM OINT TOP SCH ×3 (10:11→21:45)
[2018-08-08] MEDS: NYSTATIN 30 GM POWDER BTL TOP SCH ×2 (10:11→21:45)
[2018-08-08] MEDS: SODIUM HYPOCHLORITE (1/40) 1 APPLIC BTL IRR SCH (10:12)
--- NOTE | 2018-08-08 10:45 | CONS ---
Assessment/Plan Assessment/Plan Hospital Course (Demo Recall) No events over night, no fevers Microbiology: Blood culture grew Klebsiella pneumonia on July 04 susceptible to Cipro and Levaquin, stool for C. difficile positive, urine culture negative MRSA swab negative, L foot wound culture grew Klebsiella pneumoniae susceptible to ming quinolones and staph species Physical examination: Chronically ill-appearing middle-aged woman who is in no distress. Head atraumatic normocephalic sclera nonicteric vehicle mucosa dry neck is supple chest rise symmetrical breath sounds diminished at bases. Heart: S1-S2. Abdomen soft bowel sounds present extremities with bilateral edema, left lower extremity dressing intact Assessment: 1. S/p sepsis with Klebsiella pneumonia bacteremia likely secondary to SBP vs #2 2. Left lower extremity abscess/ cellulitis==> neg OM, s/p i/d 07/18/18 with wound vac 3. C. difficile colitis==> treated 4. Alcoholic liver cirrhosis==> on tx list at [facility] 5. Recurrent ascites 6. Anemia and thrombocytopenia Plan: Remains stable, off abx, continue wound care per podiatry recommendations, pending SNF Consultation Date/Type/Reason Admit Date/Time Jul 04, 2018 at 14:22 Initial Consult Date 07/07/18 Type of Consult id Requesting Provider: ANA SPICER Date/Time of Note DATE: 08/08/18 TIME: 10:43 Exam/Review of Systems Exam Vitals Vital Signs Date Temp Pulse Resp B/P (MAP) Pulse Ox O2 O2 Flow FiO2 Time Delivery Rate 08/08/18 98.0 83 18 108/56 96 02:03 (73) 08/04/18 Nasal 20:16 Cannula 08/04/18 2.0 14:10 Intake and Output 08/07/18 08/07/18 08/08/18 1515:00 23:00 07:00 IntakeIntake Total 400 ml 240 ml OutputOutput Total 200 ml BalanceBalance 400 ml 40 ml Medications Medication Current Medications IV Flush (NS 3 ml) 3 ml PER PROTOCOL IV Last administered on 07/26/18at 20:08; Admin Dose 3 ML; Start 07/04/18 at 18:30 Ondansetron HCl (Zofran Inj) 4 mg Q6H PRN IV NAUSEA/VOMITING Last administered on 08/08/18at 00:43; Admin Dose 4 MG; Start 07/04/18 at 18:30 Docusate Sodium (Colace) 100 mg Q12H PRN PO .CONSTIPATION; Start 07/04/18 at 18:30 Albuterol (Proventil 0.083% (Neb)) 2.5 mg Q4H RESP THERAPY PRN HHN SHORTNESS OF BREATH; Start 07/04/18 at 18:30 Metoclopramide HCl (Reglan) 5 mg Q6H PRN IV NAUSEA Last administered on 08/07/18 21:07; Admin Dose 5 MG; Start 07/05/18 at 10:00 Midodrine (Proamatine) 10 mg TID PO Last administered on 08/08/18 10:09; Admin Dose 10 MG; Start 07/06/18 at 09:00 Albuterol (Ventolin Hfa) 2 puff Q4 INH Last administered on 08/08/18 10:12; Admin Dose 2 PUFF; Start 07/06/18 at 04:30 Ondansetron HCl (Zofran Odt) 4 mg Q6H PRN ODT NAUSEA AND/OR VOMITING Last administered on 08/01/18 03:37; Admin Dose 4 MG; Start 07/06/18 at 04:00 Rifaximin (Xifaxan) 200 mg TID PO Last administered on 08/08/18 10:09; Admin Dose 200 MG; Start 07/09/18 at 21:00 Acetaminophen/ Hydrocodone Bitart ([place] (5/325)) 1 tab Q6H PRN PO MODERATE PAIN LEVEL 4-6 Last administered on 08/08/18 06:18; Admin Dose 1 TAB; Start 07/14/18 at 17:30 Sodium Hypochlorite (Dakin'S (Dilute 1/40)) 1 applic DAILY IRR Last administered on 08/08/18 10:12; Admin Dose 1 APPLIC; Start 07/15/18 at 23:45 Simethicone (Mylicon) 80 mg Q6H PRN PO DISTENSION/GAS/BLOATING Last administered on 08/07/18 15:05; Admin Dose 80 MG; Start 07/16/18 at 15:30 Lactulose (Enulose) 10 gm DAILY PO Last administered on 08/08/18 10:08; Admin Dose 10 GM; Start 07/19/18 at 09:00 Diphenhydramine HCl (Benadryl) 25 mg Q8H PRN IV PRURITUS/ITCHING Last administered on 08/04/18 07:15; Admin Dose 25 MG; Start 07/20/18 at 18:30 Morphine Sulfate (morphine) 6 mg Q4H PRN PO SEVERE PAIN LEVEL 7-10 Last administered on 08/05/18 05:23; Admin Dose 6 MG; Start 07/20/18 at 23:30 Trazodone HCl (Desyrel) 50 mg HS PRN PO insomnia Last administered on 08/07/18 23:30; Admin Dose 50 MG; Start 07/21/18 at 23:30 Nystatin (Nystatin Powder) 1 applic BID TOP Last administered on 08/08/18 10:11; Admin Dose 1 APPLIC; Start 07/25/18 at 21:00 Nystatin (Nystatin Oint) 1 applic TID TOP Last administered on 08/08/18 10:11; Admin Dose 1 APPLIC; Start 07/27/18 at 21:00 Hydromorphone HCl (Dilaudid) 1 mg Q3H PRN IV SEVERE PAIN LEVEL 7-10 Last administered on 08/08/18 00:44; Admin Dose 1 MG; Start 07/30/18 at 13:00 Spironolactone (Aldactone) 50 mg BID DIURETICS PO Last administered on 08/08/18 06:17; Admin Dose 50 MG; Start 08/08/18 at 06:00 EMA MUELLER NP Aug 08, 2018 10:45
[2018-08-08] MEDS: METOCLOPRAMIDE 10 MG INJ IV PRN (11:44)
[2018-08-08] MEDS ORDERED: LIDOCAINE 1% (MPF) 5 ML VIAL ONE (14:11)
[2018-08-09] MEDS: METOCLOPRAMIDE 10 MG INJ IV PRN ×4 (00:36→21:46)
[2018-08-09] MEDS: HYDROmorphONE 1 MG/ML SYG IV PRN ×7 (00:36→21:46)
[2018-08-09] MEDS: ALBUTEROL HFA 8 GM INHALER INH SCH ×6 (00:41→21:44)
[2018-08-09 02:00] VITALS: BP 90/49; PULSE 81; RESP 18
[2018-08-09] MEDS: traZODone 50 MG TAB PO PRN (02:11)
[2018-08-09] MEDS: ONDANSETRON 4 MG INJ IV PRN ×3 (04:07→18:07)
[2018-08-09] MEDS: SPIRONOLACTONE 50 MG TAB PO SCH ×2 (06:52→18:06)
[2018-08-09 08:14] VITALS: BP 93/48; PULSE 76; RESP 16
--- NOTE | 2018-08-09 08:38 | CONS ---
Assessment/Plan Assessment/Plan Hospital Course (Demo Recall) 48 yo female presents with left foot cellulitis 1. Alcoholic Cirrhosis of liver. -on transplant list at [facility] -AFP wnl 2. Anemia of chronic disease. 3. Pancytopenia secondary to #1 4. 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 5. Cellulitis, status post skin graft and wound VAC. -K. pneumoniae and coagulase neg staph in wound -followed by podiatry 6. Clostridium difficile colitis. -resolved 7. SBP -resolved, treatment complete 8. S/P colonoscopy 08/04 found diverticulosis and external hemorrhoids 9. S/P EGD 08/04 shows congestive gastropathy, esophageal varices 10. Anasarca -on aldactone 50 mg BID PO US of abd 08/01: 1. Coarse nodular liver consistent with cirrhosis. No focal hepatic masses. 2. Status post cholecystectomy. No biliary duct dilatation. 3. Patent portal vein with pulsatile hepatopetal flow. 4. Suspect portal hypertension as demonstrated by moderate ascites. 5. Moderate size right pleural effusion as well. 6. Increased right renal cortical echogenicity suggest medical renal disease PLAN: Consider giving lasix 20 mg PO x 1 Salt restriction with fluid restriction Spoke with charge regarding protocol of removing C diff isolation. She will follow up Continue present care Paracentesis as needed Monitor for GI bleeding High fiber diet Pt examined and plan of care discussed with Dr. Gómez Consultation Date/Type/Reason Admit Date/Time Jul 04, 2018 at 14:22 Initial Consult Date 07/07/18 Requesting Provider: ANA SPICER Date/Time of Note DATE: 08/09/18 TIME: 08:32 Exam/Review of Systems Exam Vitals Vital Signs Date Temp Pulse Resp B/P (MAP) Pulse Ox O2 O2 Flow FiO2 Time Delivery Rate 08/09/18 97.8 76 16 93/48 (63) 99 08:14 08/08/18 Room Air 14:44 Intake and Output 08/08/18 08/08/18 08/09/18 1515:00 23:00 07:00 IntakeIntake Total 440 ml 200 ml OutputOutput Total 5400 ml 600 ml BalanceBalance -4960 ml -400 ml Constitutional: alert, oriented Psych: no complaints Head: normocephalic Eyes: PERRL, icteric Respiratory: clear to auscultation Cardiovascular: regular rate and rhythm Gastrointestinal: soft, ascites, other (anasarca) Extremities: edema 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: nl mental status Results Result Diagram: 08/09/18 0600 08/09/18 0600 Results 24hrs Laboratory Tests Test 08/09/18 06:00 White Blood Count 4.6 #L Red Blood Count 2.78 L Hemoglobin 9.3 L Hematocrit 29.0 L Mean Corpuscular Volume 104.3 H Mean Corpuscular Hemoglobin 33.5 H Mean Corpuscular Hemoglobin Concent 32.1 Red Cell Distribution Width 18.0 H Platelet Count 55 #L Mean Platelet Volume 10.6 H Immature Granulocytes % 0.600 H Neutrophils % 56.7 Lymphocytes % 24.8 Monocytes % 13.4 H Eosinophils % 4.3 Basophils % 0.2 Nucleated Red Blood Cells % 0.0 Immature Granulocytes # 0.030 Neutrophils # 2.6 Lymphocytes # 1.2 Monocytes # 0.6 Eosinophils # 0.2 Basophils # 0.0 Nucleated Red Blood Cells # 0.0 Sodium Level 134 L Potassium Level 3.3 L Chloride Level 103 Carbon Dioxide Level 25 Anion Gap 6 Blood Urea Nitrogen 6 L Creatinine 0.41 L Est Glomerular Filtrat Rate mL/min > 60 Glucose Level 78 Calcium Level 7.5 L Magnesium Level 1.9 Total Bilirubin 4.4 H Direct Bilirubin 0.30 H Indirect Bilirubin 4.1 H Aspartate Amino Transf (AST/SGOT) 54 H Alanine Aminotransferase (ALT/SGPT) 43 Alkaline Phosphatase 155 H Total Protein 4.9 L Albumin 2.0 L Globulin 2.90 Albumin/Globulin Ratio 0.68 Medications Medication Current Medications IV Flush (NS 3 ml) 3 ml PER PROTOCOL IV Last administered on 07/26/18at 20:08; Admin Dose 3 ML; Start 07/04/18 at 18:30 Ondansetron HCl (Zofran Inj) 4 mg Q6H PRN IV NAUSEA/VOMITING Last administered on 08/09/18at 04:07; Admin Dose 4 MG; Start 07/04/18 at 18:30 Docusate Sodium (Colace) 100 mg Q12H PRN PO .CONSTIPATION; Start 07/04/18 at 18:30 Albuterol (Proventil 0.083% (Neb)) 2.5 mg Q4H RESP THERAPY PRN HHN SHORTNESS OF BREATH; Start 07/04/18 at 18:30 Metoclopramide HCl (Reglan) 5 mg Q6H PRN IV NAUSEA Last administered on 08/09/18 06:53; Admin Dose 5 MG; Start 07/05/18 at 10:00 Midodrine (Proamatine) 10 mg TID PO Last administered on 08/08/18 21:41; Admin Dose 10 MG; Start 07/06/18 at 09:00 Albuterol (Ventolin Hfa) 2 puff Q4 INH Last administered on 08/09/18 00:41; Admin Dose 2 PUFF; Start 07/06/18 at 04:30 Ondansetron HCl (Zofran Odt) 4 mg Q6H PRN ODT NAUSEA AND/OR VOMITING Last administered on 08/01/18 03:37; Admin Dose 4 MG; Start 07/06/18 at 04:00 Rifaximin (Xifaxan) 200 mg TID PO Last administered on 08/08/18 21:37; Admin Dose 200 MG; Start 07/09/18 at 21:00 Acetaminophen/ Hydrocodone Bitart ([place] (5/325)) 1 tab Q6H PRN PO MODERATE PAIN LEVEL 4-6 Last administered on 08/08/18 06:18; Admin Dose 1 TAB; Start 07/14/18 at 17:30 Sodium Hypochlorite (Dakin'S (Dilute )) 1 applic DAILY IRR Last administered on 08/08/18 10:12; Admin Dose 1 APPLIC; Start 07/15/18 at 23:45 Simethicone (Mylicon) 80 mg Q6H PRN PO DISTENSION/GAS/BLOATING Last administe red on 08/09/18 04:07; Admin Dose 80 MG; Start 07/16/18 at 15:30 Lactulose (Enulose) 10 gm DAILY PO Last administered on 08/08/18 10:08; Admin Dose 10 GM; Start 07/19/18 at 09:00 Diphenhydramine HCl (Benadryl) 25 mg Q8H PRN IV PRURITUS/ITCHING Last administered on 08/04/18 07:15; Admin Dose 25 MG; Start 07/20/18 at 18:30 Morphine Sulfate (morphine) 6 mg Q4H PRN PO SEVERE PAIN LEVEL 7-10 Last ad ministered on 08/05/18 05:23; Admin Dose 6 MG; Start 07/20/18 at 23:30 Trazodone HCl (Desyrel) 50 mg HS PRN PO insomnia Last administered on 08/09/18 02:11; Admin Dose 50 MG; Start 07/21/18 at 23:30 Nystatin (Nystatin Powder) 1 applic BID TOP Last administered on 08/08/18 21:45; Admin Dose 1 APPLIC; Start 07/25/18 at 21:00 Nystatin (Nystatin Oint) 1 applic TID TOP Last administered on 08/08/18 21:45; Admin Dose 1 APPLIC; Start 07/27/18 at 21:00 Hydromorphone HCl (Dilaudid) 1 mg Q3H PRN IV SEVERE PAIN LEVEL 7-10 Last administered on 08/09/18 06:54; Admin Dose 1 MG; Start 07/30/18 at 13:00 Spironolactone (Aldactone) 50 mg BID DIURETICS PO Last administered on 08/09/18 06:52; Admin Dose 50 MG; Start 08/08/18 at 06:00 SARA EISENBERG Aug 09, 2018 08:38
[2018-08-09] MEDS: LACTULOSE 30ML CUP PO SCH (08:59)
[2018-08-09] MEDS: RIFAXIMIN 200 MG TAB PO SCH ×3 (09:00→21:45)
[2018-08-09] MEDS: MIDODRINE 5 MG TAB PO SCH ×3 (09:01→21:50)
[2018-08-09] MEDS: NYSTATIN 30 GM POWDER BTL TOP SCH ×2 (09:01→21:52)
[2018-08-09] MEDS: NYSTATIN 15 GM OINT TOP SCH ×3 (09:01→21:52)
[2018-08-09] MEDS: SODIUM HYPOCHLORITE (1/40) 1 APPLIC BTL IRR SCH (09:02)
[2018-08-09] MEDS ORDERED: POTASSIUM CHLORIDE (SR) 20 MEQ TAB PO STA (09:18)
--- NOTE | 2018-08-09 09:19 | PN ---
Date/Time of Note Date/Time of Note DATE: 08/09/18 TIME: 09:19 Assessment/Plan VTE Prophylaxis Risk score (from Ns)>0 risk: 5 SCD applied (from Ns): Yes Pharmacological prophylaxis: NA/contraindicated Pharm contraindication: thrombocytopenia Lines[facility] still in place: No Assessment/Plan Assessment/Plan 1. Left foot wound s/p debridement with wound VAC- stable - s/p skin allograft and wound vac placement 07/27/18 - pain control effective - MRI foot shows no evidence of OM - Podiatry on board and appreciate recommendations. continue wound care and wound vac - Completed course of antibiotics 2. SBP with klebsiella bacteremia: - finished course of antibiotics - last culture from paracentesis negative 3. Cirrhosis with ascites - Status post paracentesis x5. developing increased ascites on left side of abdomen and plans for paracentesis when available - Continue current increased dose of Aldactone - Continue rifaximin/lactulose - has follow up with Dr. Gómez as outpatient, liver transplant preop EGD and colonoscopy shows nonbleeding varices and diverticulosis 4. Anemia - most likely 2/2 liver dz 5. Acute kidney injury likely secondary to hemodynamics and intravascular volume depletion-resolved - Nephrology consultation appreciated 6. Anemia of chronic disease - stable 7. C Diff diarrhea - s/p PO vanco course - resolving 8. Disposition - Pending SNF placement - encouraged more mobility with PT Result Diagram: 08/09/18 0600 08/09/18 0600 Results 24hrs Laboratory Tests Test 08/09/18 06:00 White Blood Count 4.6 #L Red Blood Count 2.78 L Hemoglobin 9.3 L Hematocrit 29.0 L Mean Corpuscular Volume 104.3 H Mean Corpuscular Hemoglobin 33.5 H Mean Corpuscular Hemoglobin Concent 32.1 Red Cell Distribution Width 18.0 H Platelet Count 55 #L Mean Platelet Volume 10.6 H Immature Granulocytes % 0.600 H Neutrophils % 56.7 Lymphocytes % 24.8 Monocytes % 13.4 H Eosinophils % 4.3 Basophils % 0.2 Nucleated Red Blood Cells % 0.0 Immature Granulocytes # 0.030 Neutrophils # 2.6 Lymphocytes # 1.2 Monocytes # 0.6 Eosinophils # 0.2 Basophils # 0.0 Nucleated Red Blood Cells # 0.0 Sodium Level 134 L Potassium Level 3.3 L Chloride Level 103 Carbon Dioxide Level 25 Anion Gap 6 Blood Urea Nitrogen 6 L Creatinine 0.41 L Est Glomerular Filtrat Rate mL/min > 60 Glucose Level 78 Calcium Level 7.5 L Magnesium Level 1.9 Total Bilirubin 4.4 H Direct Bilirubin 0.30 H Indirect Bilirubin 4.1 H Aspartate Amino Transf (AST/SGOT) 54 H Alanine Aminotransferase (ALT/SGPT) 43 Alkaline Phosphatase 155 H Total Protein 4.9 L Albumin 2.0 L Globulin 2.90 Albumin/Globulin Ratio 0.68 Subjective 24 Hr Interval Summary Free Text/Dictation Patient still with nausea this am but medications have been helping. Complainin g of left sided abdominal pain. Exam/Review of Systems Exam Vitals Vital Signs Date Temp Pulse Resp B/P (MAP) Pulse Ox O2 O2 Flow FiO2 Time Delivery Rate 08/09/18 97.8 76 16 93/48 (63) 99 08:14 08/08/18 Room Air 14:44 Intake and Output 08/08/18 08/08/18 08/09/18 1515:00 23:00 07:00 IntakeIntake Total 440 ml 200 ml OutputOutput Total 5400 ml 600 ml BalanceBalance -4960 ml -400 ml Exam General: Patient is laying in bed, no acute distress HEENT: scleral icterus Lungs: clear to auscultation bilaterally. no wheezing or rhonchi CVS: S1, S2, regular rate and rhythm, no obvious murmurs GI: soft, non-tender to palpation, bowel sounds heard. Skin: No new skin lesions Results Results 24hrs Laboratory Tests Test 08/09/18 06:00 White Blood Count 4.6 #L Red Blood Count 2.78 L Hemoglobin 9.3 L Hematocrit 29.0 L Mean Corpuscular Volume 104.3 H Mean Corpuscular Hemoglobin 33.5 H Mean Corpuscular Hemoglobin Concent 32.1 Red Cell Distribution Width 18.0 H Platelet Count 55 #L Mean Platelet Volume 10.6 H Immature Granulocytes % 0.600 H Neutrophils % 56.7 Lymphocytes % 24.8 Monocytes % 13.4 H Eosinophils % 4.3 Basophils % 0.2 Nucleated Red Blood Cells % 0.0 Immature Granulocytes # 0.030 Neutrophils # 2.6 Lymphocytes # 1.2 Monocytes # 0.6 Eosinophils # 0.2 Basophils # 0.0 Nucleated Red Blood Cells # 0.0 Sodium Level 134 L Potassium Level 3.3 L Chloride Level 103 Carbon Dioxide Level 25 Anion Gap 6 Blood Urea Nitrogen 6 L Creatinine 0.41 L Est Glomerular Filtrat Rate mL/min > 60 Glucose Level 78 Calcium Level 7.5 L Magnesium Level 1.9 Total Bilirubin 4.4 H Direct Bilirubin 0.30 H Indirect Bilirubin 4.1 H Aspartate Amino Transf (AST/SGOT) 54 H Alanine Aminotransferase (ALT/SGPT) 43 Alkaline Phosphatase 155 H Total Protein 4.9 L Albumin 2.0 L Globulin 2.90 Albumin/Globulin Ratio 0.68 Medications Medication Current Medications IV Flush (NS 3 ml) 3 ml PER PROTOCOL IV Last administered on 07/26/18 20:08; Admin Dose 3 ML; Start 07/04/18 at 18:30 Ondansetron HCl (Zofran Inj) 4 mg Q6H PRN IV NAUSEA/VOMITING Last administered on 08/09/18 04:07; Admin Dose 4 MG; Start 07/04/18 at 18:30 Docusate Sodium (Colace) 100 mg Q12H PRN PO .CONSTIPATION; Start 07/04/18 at 18:30 Albuterol (Proventil 0.083% (Neb)) 2.5 mg Q4H RESP THERAPY PRN HHN SHORTNESS OF BREATH; Start 07/04/18 at 18:30 Metoclopramide HCl (Reglan) 5 mg Q6H PRN IV NAUSEA Last administered on 08/09/18 06:53; Admin Dose 5 MG; Start 07/05/18 at 10:00 Midodrine (Proamatine) 10 mg TID PO Last administered on 08/09/18 09:01; Admin Dose 10 MG; Start 07/06/18 at 09:00 Albuterol (Ventolin Hfa) 2 puff Q4 INH Last administered on 08/09/18 09:00; Admin Dose 2 PUFF; Start 07/06/18 at 04:30 Ondansetron HCl (Zofran Odt) 4 mg Q6H PRN ODT NAUSEA AND/OR VOMITING Last administered on 08/01/18 03:37; Admin Dose 4 MG; Start 07/06/18 at 04:00 Rifaximin (Xifaxan) 200 mg TID PO Last administered on 08/09/18 09:00; Admin Dose 200 MG; Start 07/09/18 at 21:00 Acetaminophen/ Hydrocodone Bitart ([place] (5/325)) 1 tab Q6H PRN PO MODERATE PAIN LEVEL 4-6 Last administered on 08/08/18 06:18; Admin Dose 1 TAB; Start 07/14/18 at 17:30 Sodium Hypochlorite (Dakin'S (Dilute )) 1 applic DAILY IRR Last administered on 08/09/18 09:02; Admin Dose 1 APPLIC; Start 07/15/18 at 23:45 Simethicone (Mylicon) 80 mg Q6H PRN PO DISTENSION/GAS/BLOATING Last administered on 08/09/18 04:07; Admin Dose 80 MG; Start 07/16/18 at 15:30 Lactulose (Enulose) 10 gm DAILY PO Last administered on 08/09/18 08:59; Admin Dose 10 GM; Start 07/19/18 at 09:00 Diphenhydramine HCl (Benadryl) 25 mg Q8H PRN IV PRURITUS/ITCHING Last administered on 08/04/18 07:15; Admin Dose 25 MG; Start 07/20/18 at 18:30 Morphine Sulfate (morphine) 6 mg Q4H PRN PO SEVERE PAIN LEVEL 7-10 Last administered on 08/05/18 05:23; Admin Dose 6 MG; Start 07/20/18 at 23:30 Trazodone HCl (Desyrel) 50 mg HS PRN PO insomnia Last administered on 08/09/18 02:11; Admin Dose 50 MG; Start 07/21/18 at 23:30 Nystatin (Nystatin Powder) 1 applic BID TOP Last administered on 08/09/18 09:01; Admin Dose 1 APPLIC; Start 07/25/18 at 21:00 Nystatin (Nystatin Oint) 1 applic TID TOP Last administered on 08/09/18 09:01; Admin Dose 1 APPLIC; Start 07/27/18 at 21:00 Hydromorphone HCl (Dilaudid) 1 mg Q3H PRN IV SEVERE PAIN LEVEL 7-10 Last administered on 08/09/18 06:54; Admin Dose 1 MG; Start 07/30/18 at 13:00 Spironolactone (Aldactone) 50 mg BID DIURETICS PO Last administered on 08/09/18at 06:52; Admin Dose 50 MG; Start 08/08/18 at 06:00 LOUIE RUIZ MD Aug 09, 2018 09:19
--- NOTE | 2018-08-09 13:13 | CONS ---
Assessment/Plan Assessment/Plan Hospital Course (Demo Recall) Alert, feels good, no fevers overnight Microbiology: Blood culture grew Klebsiella pneumonia on July 04 susceptible to Cipro and Levaquin, stool for C. difficile positive, urine culture negative MRSA swab negative, L foot wound culture grew Klebsiella pneumoniae susceptible to ming quinolones and staph species Physical examination: Chronically ill-appearing middle-aged woman who is in no distress. Head atraumatic normocephalic sclera nonicteric vehicle mucosa dry neck is supple chest rise symmetrical breath sounds diminished at bases. Heart: S1-S2. Abdomen soft bowel sounds present extremities with bilateral edema, left lower extremity dressing intact Assessment: 1. S/p sepsis with Klebsiella pneumonia bacteremia likely secondary to SBP vs #2 2. Left lower extremity abscess/ cellulitis==> neg OM, s/p i/d 07/18/18 with wound vac 3. C. difficile colitis==> treated 4. Alcoholic liver cirrhosis==> on tx list at [facility] 5. Recurrent ascites 6. Anemia and thrombocytopenia Plan: Remains stable off abx, continue wound care per podiatry recommendations, pending SNF, pending repeat stool for C. difficile for isolation clearance Consultation Date/Type/Reason Admit Date/Time Jul 04, 2018 at 14:22 Initial Consult Date 07/07/18 Type of Consult id Requesting Provider: ANA SPICER Date/Time of Note DATE: 08/09/18 TIME: 13:12 Exam/Review of Systems Exam Vitals Vital Signs Date Temp Pulse Resp B/P (MAP) Pulse Ox O2 O2 Flow FiO2 Time Delivery Rate 08/09/18 97.8 76 16 93/48 (63) 99 08:14 08/08/18 Room Air 14:44 Intake and Output 08/08/18 08/08/18 08/09/18 1414:59 22:59 06:59 IntakeIntake Total 440 ml 200 ml OutputOutput Total 5400 ml 600 ml BalanceBalance -4960 ml -400 ml Results Result Diagram: 08/09/18 0600 08/09/18 0600 Results 24hrs Laboratory Tests Test 08/09/18 06:00 White Blood Count 4.6 #L Red Blood Count 2.78 L Hemoglobin 9.3 L Hematocrit 29.0 L Mean Corpuscular Volume 104.3 H Mean Corpuscular Hemoglobin 33.5 H Mean Corpuscular Hemoglobin Concent 32.1 Red Cell Distribution Width 18.0 H Platelet Count 55 #L Mean Platelet Volume 10.6 H Immature Granulocytes % 0.600 H Neutrophils % 56.7 Lymphocytes % 24.8 Monocytes % 13.4 H Eosinophils % 4.3 Basophils % 0.2 Nucleated Red Blood Cells % 0.0 Immature Granulocytes # 0.030 Neutrophils # 2.6 Lymphocytes # 1.2 Monocytes # 0.6 Eosinophils # 0.2 Basophils # 0.0 Nucleated Red Blood Cells # 0.0 Sodium Level 134 L Potassium Level 3.3 L Chloride Level 103 Carbon Dioxide Level 25 Anion Gap 6 Blood Urea Nitrogen 6 L Creatinine 0.41 L Est Glomerular Filtrat Rate mL/min > 60 Glucose Level 78 Calcium Level 7.5 L Magnesium Level 1.9 Total Bilirubin 4.4 H Direct Bilirubin 0.30 H Indirect Bilirubin 4.1 H Aspartate Amino Transf (AST/SGOT) 54 H Alanine Aminotransferase (ALT/SGPT) 43 Alkaline Phosphatase 155 H Total Protein 4.9 L Albumin 2.0 L Globulin 2.90 Albumin/Globulin Ratio 0.68 Medications Medication Current Medications IV Flush (NS 3 ml) 3 ml PER PROTOCOL IV Last administered on 07/26/18 20:08; Admin Dose 3 ML; Start 07/04/18 at 18:30 Ondansetron HCl (Zofran Inj) 4 mg Q6H PRN IV NAUSEA/VOMITING Last administered on 08/09/18 10:49; Admin Dose 4 MG; Start 07/04/18 at 18:30 Docusate Sodium (Colace) 100 mg Q12H PRN PO .CONSTIPATION; Start 07/04/18 at 18:30 Albuterol (Proventil 0.083% (Neb)) 2.5 mg Q4H RESP THERAPY PRN HHN SHORTNESS OF BREATH; Start 07/04/18 at 18:30 Metoclopramide HCl (Reglan) 5 mg Q6H PRN IV NAUSEA Last administered on 08/09/18 06:53; Admin Dose 5 MG; Start 07/05/18 at 10:00 Midodrine (Proamatine) 10 mg TID PO Last administered on 08/09/18 12:55; Admin Dose 10 MG; Start 07/06/18 at 09:00 Albuterol (Ventolin Hfa) 2 puff Q4 INH Last administered on 08/09/18 12:55; Admin Dose 2 PUFF; Start 07/06/18 at 04:30 Rifaximin (Xifaxan) 200 mg TID PO Last administered on 08/09/18 12:54; Admin Dose 200 MG; Start 07/09/18 at 21:00 Acetaminophen/ Hydrocodone Bitart ([place] (5/325)) 1 tab Q6H PRN PO MODERATE PAIN LEVEL 4-6 Last administered on 08/08/18 06:18; Admin Dose 1 TAB; Start 07/14/18 at 17:30 Sodium Hypochlorite (Dakin'S (Dilute )) 1 applic DAILY IRR Last administered on 08/09/18 09:02; Admin Dose 1 APPLIC; Start 07/15/18 at 23:45 Simethicone (Mylicon) 80 mg Q6H PRN PO DISTENSION/GAS/BLOATING Last administered on 08/09/18 10:48; Admin Dose 80 MG; Start 07/16/18 at 15:30 Lactulose (Enulose) 10 gm DAILY PO Last administered on 08/09/18 08:59; Admin Dose 10 GM; Start 07/19/18 at 09:00 Diphenhydramine HCl (Benadryl) 25 mg Q8H PRN IV PRURITUS/ITCHING Last administe red on 08/04/18 07:15; Admin Dose 25 MG; Start 07/20/18 at 18:30 Morphine Sulfate (morphine) 6 mg Q4H PRN PO SEVERE PAIN LEVEL 7-10 Last administered on 08/05/18 05:23; Admin Dose 6 MG; Start 07/20/18 at 23:30 Trazodone HCl (Desyrel) 50 mg HS PRN PO insomnia Last administered on 08/09/18 02:11; Admin Dose 50 MG; Start 07/21/18 at 23:30 Nystatin (Nystatin Powder) 1 applic BID TOP Last administered on 08/09/18 09:01; Admin Dose 1 APPLIC; Start 07/25/18 at 21:00 Nystatin (Nystatin Oint) 1 applic TID TOP Last administered on 08/09/18 12:55; Admin Dose 1 APPLIC; Start 07/27/18 at 21:00 Hydromorphone HCl (Dilaudid) 1 mg Q3H PRN IV SEVERE PAIN LEVEL 7-10 Last administered on 08/09/18at 10:49; Admin Dose 1 MG; Start 07/30/18 at 13:00 Spironolactone (Aldactone) 50 mg BID DIURETICS PO Last administered on 08/09/18at 06:52; Admin Dose 50 MG; Start 08/08/18 at 06:00 Ondansetron HCl (Zofran Odt) 8 mg Q6H PRN ODT NAUSEA AND/OR VOMITING; Start 08/09/18 at 16:00 EMA MUELLER NP Aug 09, 2018 13:13
[2018-08-09 14:46] VITALS: BP 102/56; PULSE 77; RESP 18
[2018-08-09 20:00] VITALS: BP 99/49; PULSE 73; RESP 18
[2018-08-10] VITALS (7 sets, daily range): BP systolic 92–106; BP diastolic 44–55; PULSE 78–87; RESP 16–20
[2018-08-10] MEDS: HYDROmorphONE 1 MG/ML SYG IV PRN ×8 (01:05→23:48)
[2018-08-10] MEDS: ONDANSETRON 4 MG INJ IV PRN ×4 (01:05→20:20)
[2018-08-10] MEDS: ALBUTEROL HFA 8 GM INHALER INH SCH ×6 (01:05→20:17)
[2018-08-10] MEDS: METOCLOPRAMIDE 10 MG INJ IV PRN ×4 (04:13→23:49)
[2018-08-10] MEDS: SPIRONOLACTONE 50 MG TAB PO SCH ×2 (06:52→17:08)
[2018-08-10] MEDS ORDERED: LIDOCAINE 1% (MPF) 5 ML VIAL ONE (08:47)
--- NOTE | 2018-08-10 09:10 | PN ---
Date/Time of Note Date/Time of Note DATE: 08/10/18 TIME: 09:10 Assessment/Plan VTE Prophylaxis Risk score (from Ns)>0 risk: 5 SCD applied (from Ns): Yes Pharmacological prophylaxis: NA/contraindicated Pharm contraindication: thrombocytopenia Lines/Catheters IV Catheter Type (from Nrsg): Mid Line Urinary Cath still in place: No Assessment/Plan Assessment/Plan 1. Left foot wound s/p debridement with wound VAC- stable - s/p skin allograft and wound vac placement 07/27/18 - pain control effective - MRI foot shows no evidence of OM - Podiatry on board and appreciate recommendations. continue wound care and wound vac - Completed course of antibiotics 2. SBP with klebsiella bacteremia: - finished course of antibiotics - last culture from paracentesis negative 3. Cirrhosis with ascites - Status post paracentesis x6. 4.5 L removed from L side this am - Continue current increased dose of Aldactone. Will hold off on Lasix given low BP - Continue rifaximin/lactulose - has follow up with Dr. Gómez as outpatient, liver transplant preop EGD and colonoscopy shows nonbleeding varices and diverticulosis 4. Anemia - most likely 2/2 liver dz 5. Acute kidney injury likely secondary to hemodynamics and intravascular volume depletion-resolved - Nephrology consultation appreciated 6. Anemia of chronic disease - stable 7. C Diff diarrhea - s/p PO vanco course - resolving - repeat ordered but given on Lactulose, lab will not process sample 8. Disposition - Pending SNF placement - US L breast ordered given complaints of pain Result Diagram: 08/10/1827 08/10/18 0527 Results 24hrs Laboratory Tests Test 08/10/18 05:27 White Blood Count 4.4 L Red Blood Count 2.74 L Hemoglobin 9.2 L Hematocrit 27.7 L Mean Corpuscular Volume 101.1 H Mean Corpuscular Hemoglobin 33.6 H Mean Corpuscular Hemoglobin Concent 33.2 Red Cell Distribution Width 17.7 H Platelet Count 59 L Mean Platelet Volume 10.4 Immature Granulocytes % 0.500 H Neutrophils % 53.7 Lymphocytes % 26.7 Monocytes % 14.7 H Eosinophils % 3.7 Basophils % 0.7 Nucleated Red Blood Cells % 0.0 Immature Granulocytes # 0.020 Neutrophils # 2.3 Lymphocytes # 1.2 Monocytes # 0.6 Eosinophils # 0.2 Basophils # 0.0 Nucleated Red Blood Cells # 0.0 Sodium Level 135 Potassium Level 3.9 Chloride Level 104 Carbon Dioxide Level 26 Anion Gap 5 Blood Urea Nitrogen 6 L Creatinine 0.41 L Est Glomerular Filtrat Rate mL/min > 60 Glucose Level 98 Calcium Level 7.6 L Total Bilirubin 4.9 H Direct Bilirubin 0.20 Indirect Bilirubin 4.7 H Aspartate Amino Transf (AST/SGOT) 52 H Alanine Aminotransferase (ALT/SGPT) 39 Alkaline Phosphatase 125 H Total Protein 4.8 L Albumin 2.0 L Globulin 2.80 Albumin/Globulin Ratio 0.71 Subjective 24 Hr Interval Summary Free Text/Dictation Patient underwent L paracentesis this am with 4.5 L removed which provided relief. Still with discomfort in left breast area. Exam/Review of Systems Exam Vitals Vital Signs Date Temp Pulse Resp B/P (MAP) Pulse Ox O2 O2 Flow FiO2 Time Delivery Rate 08/10/18 97.7 81 18 100/55 96 02:00 (70) 08/08/18 Room Air 14:44 Intake and Output 08/09/18 08/09/18 08/10/18 1515:00 23:00 07:00 IntakeIntake Total 400 ml OutputOutput Total 0 ml BalanceBalance 0 ml 400 ml Exam General: Patient is laying in bed, no acute distress HEENT: scleral icterus Chest: tenderness to palpation left breast, no masses appreciated Lungs: clear to auscultation bilaterally. no wheezing or rhonchi CVS: S1, S2, regular rate and rhythm, no obvious murmurs GI: soft, non-tender to palpation, distension, bowel sounds heard. Skin: No new skin lesions Results Results 24hrs Laboratory Tests Test 08/10/18 05:27 White Blood Count 4.4 L Red Blood Count 2.74 L Hemoglobin 9.2 L Hematocrit 27.7 L Mean Corpuscular Volume 101.1 H Mean Corpuscular Hemoglobin 33.6 H Mean Corpuscular Hemoglobin Concent 33.2 Red Cell Distribution Width 17.7 H Platelet Count 59 L Mean Platelet Volume 10.4 Immature Granulocytes % 0.500 H Neutrophils % 53.7 Lymphocytes % 26.7 Monocytes % 14.7 H Eosinophils % 3.7 Basophils % 0.7 Nucleated Red Blood Cells % 0.0 Immature Granulocytes # 0.020 Neutrophils # 2.3 Lymphocytes # 1.2 Monocytes # 0.6 Eosinophils # 0.2 Basophils # 0.0 Nucleated Red Blood Cells # 0.0 Sodium Level 135 Potassium Level 3.9 Chloride Level 104 Carbon Dioxide Level 26 Anion Gap 5 Blood Urea Nitrogen 6 L Creatinine 0.41 L Est Glomerular Filtrat Rate mL/min > 60 Glucose Level 98 Calcium Level 7.6 L Total Bilirubin 4.9 H Direct Bilirubin 0.20 Indirect Bilirubin 4.7 H Aspartate Amino Transf (AST/SGOT) 52 H Alanine Aminotransferase (ALT/SGPT) 39 Alkaline Phosphatase 125 H Total Protein 4.8 L Albumin 2.0 L Globulin 2.80 Albumin/Globulin Ratio 0.71 Medications Medication Current Medications IV Flush (NS 3 ml) 3 ml PER PROTOCOL IV Last administered on 07/26/18 20:08; Admin Dose 3 ML; Start 07/04/18 at 18:30 Ondansetron HCl (Zofran Inj) 4 mg Q6H PRN IV NAUSEA/VOMITING Last administered on 08/10/18 07:03; Admin Dose 4 MG; Start 07/04/18 at 18:30 Docusate Sodium (Colace) 100 mg Q12H PRN PO .CONSTIPATION; Start 07/04/18 at 18:30 Albuterol (Proventil 0.083% (Neb)) 2.5 mg Q4H RESP THERAPY PRN HHN SHORTNESS OF BREATH; Start 07/04/18 at 18:30 Metoclopramide HCl (Reglan) 5 mg Q6H PRN IV NAUSEA Last administered on 08/10/18 04:13; Admin Dose 5 MG; Start 07/05/18 at 10:00 Midodrine (Proamatine) 10 mg TID PO Last administered on 08/09/18 21:50; Admin Dose 10 MG; Start 07/06/18 at 09:00 Albuterol (Ventolin Hfa) 2 puff Q4 INH Last administered on 08/10/18 05:10; Admin Dose 2 PUFF; Start 07/06/18 at 04:30 Rifaximin (Xifaxan) 200 mg TID PO Last administered on 08/09/18 21:45; Admin Dose 200 MG; Start 07/09/18 at 21:00 Acetaminophen/ Hydrocodone Bitart ([place] (5/325)) 1 tab Q6H PRN PO MODERATE PAIN LEVEL 4-6 Last administered on 08/08/18 06:18; Admin Dose 1 TAB; Start 07/14/18 at 17:30 Sodium Hypochlorite ([place]akin'S (Dilute )) 1 applic DAILY IRR Last a dministered on 08/09/18 09:02; Admin Dose 1 APPLIC; Start 07/15/18 at 23:45 Simethicone (Mylicon) 80 mg Q6H PRN PO DISTENSION/GAS/BLOATING Last administered on 08/10/18 04:13; Admin Dose 80 MG; Start 07/16/18 at 15:30 Lactulose (Enulose) 10 gm DAILY PO Last administered on 08/09/18 08:59; Admin Dose 10 GM; Start 07/19/18 at 09:00 Diphenhydramine HCl (Benadryl) 25 mg Q8H PRN IV PRURITUS/ITCHING Last administered on 08/04/18 07:15; Admin Dose 25 MG; Start 07/20/18 at 18:30 Morphine Sulfate (morphine) 6 mg Q4H PRN PO SEVERE PAIN LEVEL 7-10 Last administered on 08/05/18 05:23; Admin Dose 6 MG; Start 07/20/18 at 23:30 Trazodone HCl (Desyrel) 50 mg HS PRN PO insomnia Last administered on 08/09/18 02:11; Admin Dose 50 MG; Start 07/21/18 at 23:30 Nystatin (Nystatin Powder) 1 applic BID TOP Last administered on 08/09/18 21:52; Admin Dose 1 APPLIC; Start 07/25/18 at 21:00 Nystatin (Nystatin Oint) 1 applic TID TOP Last administered on 08/09/18 21:52; Admin Dose 1 APPLIC; Start 07/27/18 at 21:00 Hydromorphone HCl (Dilaudid) 1 mg Q3H PRN IV SEVERE PAIN LEVEL 7-10 Last administered on 08/10/18 07:03; Admin Dose 1 MG; Start 07/30/18 at 13:00 Spironolactone (Aldactone) 50 mg BID DIURETICS PO Last administered on 08/10/18 06:52; Admin Dose 50 MG; Start 08/08/18 at 06:00 Ondansetron HCl (Zofran Odt) 8 mg Q6H PRN ODT NAUSEA AND/OR VOMITING; Start 08/09/18 at 16:00 LOUIE RUIZ MD Aug 10, 2018 09:10
[2018-08-10] MEDS: LACTULOSE 30ML CUP PO SCH (09:18)
[2018-08-10] MEDS: NYSTATIN 30 GM POWDER BTL TOP SCH ×2 (09:18→20:26)
[2018-08-10] MEDS: RIFAXIMIN 200 MG TAB PO SCH ×3 (09:18→20:20)
[2018-08-10] MEDS: NYSTATIN 15 GM OINT TOP SCH ×3 (09:19→20:26)
[2018-08-10] MEDS: SODIUM HYPOCHLORITE (1/40) 1 APPLIC BTL IRR SCH (09:19)
[2018-08-10] MEDS: MIDODRINE 5 MG TAB PO SCH ×3 (09:22→20:20)
--- NOTE | 2018-08-10 11:11 | CONS ---
Assessment/Plan Assessment/Plan Hospital Course (Demo Recall) All noted, no fevers overnight, s/p paracentesis==> 4200 cc Microbiology: Blood culture grew Klebsiella pneumonia on July 04 susceptible to Cipro and Levaquin, stool for C. difficile positive, urine culture negative MRSA swab negative, L foot wound culture grew Klebsiella pneumoniae susceptible to ming quinolones and staph species Physical examination: Chronically ill-appearing middle-aged woman who is in no distress. Head atraumatic normocephalic sclera nonicteric vehicle mucosa dry neck is supple chest rise symmetrical breath sounds diminished at bases. Heart: S1-S2. Abdomen soft bowel sounds present extremities with bilateral edema, left lower extremity dressing intact Assessment: 1. S/p sepsis with Klebsiella pneumonia bacteremia likely secondary to SBP vs #2 2. Left lower extremity abscess/ cellulitis==> neg OM, s/p i/d 07/18/18 with wound vac 3. C. difficile colitis==> treated 4. Alcoholic liver cirrhosis==> on tx list at [facility] 5. Recurrent ascites 6. Anemia and thrombocytopenia Plan: Remains stable off abx, continue wound care per podiatry recommendations, pending SNF, pending repeat stool for C. difficile for isolation clearance Consultation Date/Type/Reason Admit Date/Time Jul 04, 2018 at 14:22 Initial Consult Date 07/07/18 Type of Consult id Requesting Provider: ANA SPICER Date/Time of Note DATE: 08/10/18 TIME: 11:10 Exam/Review of Systems Exam Vitals Vital Signs Date Temp Pulse Resp B/P (MAP) Pulse Ox O2 O2 Flow FiO2 Time Delivery Rate 08/10/18 78 98/47 (64) 09:20 08/10/18 97.7 18 96 02:00 08/08/18 Room Air 14:44 Intake and Output 08/09/18 08/09/18 08/10/18 1515:00 23:00 07:00 IntakeIntake Total 400 ml OutputOutput Total 0 ml BalanceBalance 0 ml 400 ml Results Result Diagram: 08/10/18 0527 08/10/18 0527 Results 24hrs Laboratory Tests Test 08/10/18 05:27 White Blood Count 4.4 L Red Blood Count 2.74 L Hemoglobin 9.2 L Hematocrit 27.7 L Mean Corpuscular Volume 101.1 H Mean Corpuscular Hemoglobin 33.6 H Mean Corpuscular Hemoglobin Concent 33.2 Red Cell Distribution Width 17.7 H Platelet Count 59 L Mean Platelet Volume 10.4 Immature Granulocytes % 0.500 H Neutrophils % 53.7 Lymphocytes % 26.7 Monocytes % 14.7 H Eosinophils % 3.7 Basophils % 0.7 Nucleated Red Blood Cells % 0.0 Immature Granulocytes # 0.020 Neutrophils # 2.3 Lymphocytes # 1.2 Monocytes # 0.6 Eosinophils # 0.2 Basophils # 0.0 Nucleated Red Blood Cells # 0.0 Sodium Level 135 Potassium Level 3.9 Chloride Level 104 Carbon Dioxide Level 26 Anion Gap 5 Blood Urea Nitrogen 6 L Creatinine 0.41 L Est Glomerular Filtrat Rate mL/min > 60 Glucose Level 98 Calcium Level 7.6 L Total Bilirubin 4.9 H Direct Bilirubin 0.20 Indirect Bilirubin 4.7 H Aspartate Amino Transf (AST/SGOT) 52 H Alanine Aminotransferase (ALT/SGPT) 39 Alkaline Phosphatase 125 H Total Protein 4.8 L Albumin 2.0 L Globulin 2.80 Albumin/Globulin Ratio 0.71 Medications Medication Current Medications IV Flush (NS 3 ml) 3 ml PER PROTOCOL IV Last administered on 07/26/18 20:08; Admin Dose 3 ML; Start 07/04/18 at 18:30 Ondansetron HCl (Zofran Inj) 4 mg Q6H PRN IV NAUSEA/VOMITING Last administered on 08/10/18 07:03; Admin Dose 4 MG; Start 07/04/18 at 18:30 Docusate Sodium (Colace) 100 mg Q12H PRN PO .CONSTIPATION; Start 07/04/18 at 18:30 Albuterol (Proventil 0.083% (Neb)) 2.5 mg Q4H RESP THERAPY PRN HHN SHORTNESS OF BREATH; Start 07/04/18 at 18:30 Metoclopramide HCl (Reglan) 5 mg Q6H PRN IV NAUSEA Last administered on 08/10/18 10:14; Admin Dose 5 MG; Start 07/05/18 at 10:00 Midodrine (Proamatine) 10 mg TID PO Last administered on 08/10/18 09:22; Admin Dose 10 MG; Start 07/06/18 at 09:00 Albuterol (Ventolin Hfa) 2 puff Q4 INH Last administered on 08/10/18 09:19; Admin Dose 2 PUFF; Start 07/06/18 at 04:30 Rifaximin (Xifaxan) 200 mg TID PO Last administered on 08/10/18 09:18; Admin Dose 200 MG; Start 07/09/18 at 21:00 Acetaminophen/ Hydrocodone Bitart ([place] (5/325)) 1 tab Q6H PRN PO MODERATE PAIN LEVEL 4-6 Last administered on 08/08/18 06:18; Admin Dose 1 TAB; Start 07/14/18 at 17:30 Sodium Hypochlorite ([place]akin'S (Dilute )) 1 applic DAILY IRR Last administered on 08/10/18 09:19; Admin Dose 1 APPLIC; Start 07/15/18 at 23:45 Simethicone (Mylicon) 80 mg Q6H PRN PO DISTENSION/GAS/BLOATING Last administered on 08/10/18 04:13; Admin Dose 80 MG; Start 07/16/18 at 15:30 Lactulose (Enulose) 10 gm DAILY PO Last administered on 08/10/18 09:18; Admin Dose 10 GM; Start 07/19/18 at 09:00 Diphenhydramine HCl (Benadryl) 25 mg Q8H PRN IV PRURITUS/ITCHING Last administered on 08/04/18 07:15; Admin Dose 25 MG; Start 07/20/18 at 18:30 Morphine Sulfate (morphine) 6 mg Q4H PRN PO SEVERE PAIN LEVEL 7-10 Last administered on 08/05/18 05:23; Admin Dose 6 MG; Start 07/20/18 at 23:30 Trazodone HCl (Desyrel) 50 mg HS PRN PO insomnia Last administered on 08/09/18 02:11; Admin Dose 50 MG; Start 07/21/18 at 23:30 Nystatin (Nystatin Powder) 1 applic BID TOP Last administered on 08/10/18 09:18; Admin Dose 1 APPLIC; Start 07/25/18 at 21:00 Nystatin (Nystatin Oint) 1 applic TID TOP Last administered on 08/10/18 09:19; Admin Dose 1 APPLIC; Start 07/27/18 at 21:00 Hydromorphone HCl (Dilaudid) 1 mg Q3H PRN IV SEVERE PAIN LEVEL 7-10 Last administered on 08/10/18at 10:15; Admin Dose 1 MG; Start 07/30/18 at 13:00 Spironolactone (Aldactone) 50 mg BID DIURETICS PO Last administered on 08/10/18at 06:52; Admin Dose 50 MG; Start 08/08/18 at 06:00 Ondansetron HCl (Zofran Odt) 8 mg Q6H PRN ODT NAUSEA AND/OR VOMITING; Start 08/09/18 at 16:00 EMA MUELLER NP Aug 10, 2018 11:11
--- NOTE | 2018-08-10 17:57 | CONS ---
Assessment/Plan Assessment/Plan Assessment/Plan (Daily) 48 yo female presents with left foot cellulitis 1. Alcoholic Cirrhosis of liver. -on transplant list at [facility] -AFP wnl 2. Anemia of chronic disease. 3. Pancytopenia secondary to #1 4. 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 5. Cellulitis, status post skin graft and wound VAC. -K. pneumoniae and coagulase neg staph in wound -followed by podiatry 6. Clostridium difficile colitis. -resolved 7. SBP -resolved, treatment complete 8. S/P colonoscopy 08/04 found diverticulosis and external hemorrhoids 9. S/P EGD 08/04 shows congestive gastropathy, esophageal varices 10. Anasarca -on aldactone 50 mg BID PO US of abd 08/01: 1. Coarse nodular liver consistent with cirrhosis. No focal hepatic masses. 2. Status post cholecystectomy. No biliary duct dilatation. 3. Patent portal vein with pulsatile hepatopetal flow. 4. Suspect portal hypertension as demonstrated by moderate ascites. 5. Moderate size right pleural effusion as well. 6. Increased right renal cortical echogenicity suggest medical renal disease PLAN: Increase Aldactone 200 mg p.o. twice daily Consider giving lasix 20 mg PO x 1 Salt restriction with fluid restriction Spoke with charge regarding protocol of removing C diff isolation. She will follow up Continue present care Paracentesis as needed Monitor for GI bleeding High fiber diet Consultation Date/Type/Reason Admit Date/Time Jul 04, 2018 at 14:22 Initial Consult Date 07/07/18 Requesting Provider: ANA SPICER Date/Time of Note DATE: 08/10/18 TIME: 17:55 24 HR Interval Summary Free Text/Dictation Patient had paracentesis today 4 1/2 L of fluid was removed Exam/Review of Systems Exam Vitals Vital Signs Date Temp Pulse Resp B/P (MAP) Pulse Ox O2 O2 Flow FiO2 Time Delivery Rate 08/10/18 98.2 78 16 105/52 99 14:00 (69) 08/10/18 Room Air 08:55 Intake and Output 08/09/18 08/09/18 08/10/18 1515:00 23:00 07:00 IntakeIntake Total 400 ml OutputOutput Total 0 ml BalanceBalance 0 ml 400 ml Constitutional: alert, oriented, well developed Psych: no complaints, nl mood/affect Head: normocephalic, atraumatic Eyes: nl conjunctiva, EOMI, nl lids, nl sclera, PERRL ENMT: nl external ears & nose, nl lips & teeth, nl nasal mucosa & septum Neck: supple, non-tender Respiratory: clear to auscultation, normal air movement Cardiovascular: regular rate and rhythm, nl pulses Gastrointestinal: soft, nl liver, spleen, non-tender Musculoskeletal: nl extremities to inspection, nl gait and stance Extremities: normal pulses 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: [employer] II-XII intact, nl mental status, nl speech, nl strength Skin: nl turgor; No rash or lesions Lymph: nl lymph nodes Results Result Diagram: 08/10/1852608/10/18526 Results 24hrs Laboratory Tests Test 08/10/18 05:27 White Blood Count 4.4 L Red Blood Count 2.74 L Hemoglobin 9.2 L Hematocrit 27.7 L Mean Corpuscular Volume 101.1 H Mean Corpuscular Hemoglobin 33.6 H Mean Corpuscular Hemoglobin Concent 33.2 Red Cell Distribution Width 17.7 H Platelet Count 59 L Mean Platelet Volume 10.4 Immature Granulocytes % 0.500 H Neutrophils % 53.7 Lymphocytes % 26.7 Monocytes % 14.7 H Eosinophils % 3.7 Basophils % 0.7 Nucleated Red Blood Cells % 0.0 Immature Granulocytes # 0.020 Neutrophils # 2.3 Lymphocytes # 1.2 Monocytes # 0.6 Eosinophils # 0.2 Basophils # 0.0 Nucleated Red Blood Cells # 0.0 Sodium Level 135 Potassium Level 3.9 Chloride Level 104 Carbon Dioxide Level 26 Anion Gap 5 Blood Urea Nitrogen 6 L Creatinine 0.41 L Est Glomerular Filtrat Rate mL/min > 60 Glucose Level 98 Calcium Level 7.6 L Total Bilirubin 4.9 H Direct Bilirubin 0.20 Indirect Bilirubin 4.7 H Aspartate Amino Transf (AST/SGOT) 52 H Alanine Aminotransferase (ALT/SGPT) 39 Alkaline Phosphatase 125 H Total Protein 4.8 L Albumin 2.0 L Globulin 2.80 Albumin/Globulin Ratio 0.71 Medications Medication Current Medications IV Flush (NS 3 ml) 3 ml PER PROTOCOL IV Last administered on 07/26/18at 20:08; Admin Dose 3 ML; Start 07/04/18 at 18:30 Ondansetron HCl (Zofran Inj) 4 mg Q6H PRN IV NAUSEA/VOMITING Last administered on 08/10/18 13:19; Admin Dose 4 MG; Start 07/04/18 at 18:30 Docusate Sodium (Colace) 100 mg Q12H PRN PO .CONSTIPATION; Start 07/04/18 at 18:30 Albuterol (Proventil 0.083% (Neb)) 2.5 mg Q4H RESP THERAPY PRN HHN SHORTNESS OF BREATH; Start 07/04/18 at 18:30 Metoclopramide HCl (Reglan) 5 mg Q6H PRN IV NAUSEA Last administered on 08/10/18 17:07; Admin Dose 5 MG; Start 07/05/18 at 10:00 Midodrine (Proamatine) 10 mg TID PO Last administered on 08/10/18 12:46; Admin Dose 10 MG; Start 07/06/18 at 09:00 Albuterol (Ventolin Hfa) 2 puff Q4 INH Last administered on 08/10/18 17:08; Admin Dose 2 PUFF; Start 07/06/18 at 04:30 Rifaximin (Xifaxan) 200 mg TID PO Last administered on 08/10/18 12:45; Admin Dose 200 MG; Start 07/09/18 at 21:00 Acetaminophen/ Hydrocodone Bitart ([place] (5/325)) 1 tab Q6H PRN PO MODERATE P AIN LEVEL 4-6 Last administered on 08/08/18 06:18; Admin Dose 1 TAB; Start 07/14/18 at 17:30 Sodium Hypochlorite ([place] (Dilute 140)) 1 applic DAILY IRR Last administered on 08/10/18 09:19; Admin Dose 1 APPLIC; Start 07/15/18 at 23:45 Simethicone (Mylicon) 80 mg Q6H PRN PO DISTENSION/GAS/BLOATING Last administered on 08/10/18 04:13; Admin Dose 80 MG; Start 07/16/18 at 15:30 Lactulose (Enulose) 10 gm DAILY PO Last administered on 08/10/18 09:18; Admin Dose 10 GM; Start 07/19/18 at 09:00 Diphenhydramine HCl (Benadryl) 25 mg Q8H PRN IV PRURITUS/ITCHING Last administered on 08/04/18 07:15; Admin Dose 25 MG; Start 07/20/18 at 18:30 Morphine Sulfate (morphine) 6 mg Q4H PRN PO SEVERE PAIN LEVEL 7-10 Last administered on 08/05/18 05:23; Admin Dose 6 MG; Start 07/20/18 at 23:30 Trazodone HCl (Desyrel) 50 mg HS PRN PO insomnia Last administered on 08/09/18 02:11; Admin Dose 50 MG; Start 07/21/18 at 23:30 Nystatin (Nystatin Powder) 1 applic BID TOP Last administered on 08/10/18 09:18; Admin Dose 1 APPLIC; Start 07/25/18 at 21:00 Nystatin (Nystatin Oint) 1 applic TID TOP Last administered on 08/10/18 12:46; Admin Dose 1 APPLIC; Start 07/27/18 at 21:00 Hydromorphone HCl (Dilaudid) 1 mg Q3H PRN IV SEVERE PAIN LEVEL 7-10 Last administered on 08/10/18 17:08; Admin Dose 1 MG; Start 07/30/18 at 13:00 Spironolactone (Aldactone) 50 mg BID DIURETICS PO Last administered on 08/10/18 17:08; Admin Dose 50 MG; Start 08/08/18 at 06:00 Ondansetron HCl (Zofran Odt) 8 mg Q6H PRN ODT NAUSEA AND/OR VOMITING; Start 08/09/18 at 16:00 TRISTIAN NAIDU MD Aug 10, 2018 17:57
[2018-08-10] MEDS ORDERED: SPIRONOLACTONE 50 MG TAB PO SCH ×2 (18:00→18:30)
[2018-08-10] MEDS: traZODone 50 MG TAB PO PRN (21:19)
[2018-08-11] MEDS: ALBUTEROL HFA 8 GM INHALER INH SCH ×6 (01:00→21:55)
[2018-08-11 02:05] VITALS: BP 98/54; PULSE 84; RESP 18
[2018-08-11] MEDS: HYDROmorphONE 1 MG/ML SYG IV PRN ×7 (03:16→21:51)
[2018-08-11] MEDS: ONDANSETRON 4 MG INJ IV PRN ×4 (03:16→21:51)
[2018-08-11] MEDS: SPIRONOLACTONE 50 MG TAB PO SCH ×2 (06:20→18:23)
[2018-08-11] MEDS: METOCLOPRAMIDE 10 MG INJ IV PRN ×3 (06:20→18:28)
[2018-08-11 07:35] VITALS: BP 86/50; PULSE 81; RESP 16
[2018-08-11] MEDS: SODIUM HYPOCHLORITE (1/40) 1 APPLIC BTL IRR SCH (09:00)
--- NOTE | 2018-08-11 09:16 | PN ---
Date/Time of Note Date/Time of Note DATE: 08/11/18 TIME: 09:16 Assessment/Plan VTE Prophylaxis Risk score (from Ns)>0 risk: 5 SCD applied (from Ns): Yes Pharmacological prophylaxis: NA/contraindicated Pharm contraindication: thrombocytopenia Lines/Catheters IV Catheter Type (from Nrsg): Mid Line Urinary Cath still in place: No Assessment/Plan Assessment/Plan 1. Left foot wound s/p debridement with wound VAC- stable - s/p skin allograft and wound vac placement 07/27/18 - pain control effective - MRI foot shows no evidence of OM - Podiatry on board and appreciate recommendations. continue wound care and wound vac - Completed course of antibiotics 2. SBP with klebsiella bacteremia: - finished course of antibiotics - last culture from paracentesis negative 3. Cirrhosis with ascites - Status post paracentesis x 6 - Continue current increased dose of Aldactone 200mg BID. Will hold off on Lasix given low BP - Continue rifaximin/lactulose - has follow up with Dr. Gómez as outpatient, liver transplant preop EGD and colonoscopy shows nonbleeding varices and diverticulosis 4. Anemia - most likely 2/2 liver dz 5. Acute kidney injury likely secondary to hemodynamics and intravascular volume depletion-resolved - Nephrology consultation appreciated 6. Anemia of chronic disease - stable 7. C Diff diarrhea - s/p PO vanco course - resolving - repeat ordered but given on Lactulose, lab will not process sample 8. Disposition - Pending SNF placement - US L breast results pending Result Diagram: 08/11/18 0455 08/11/18 0455 Results 24hrs Laboratory Tests Test 08/11/18 04:55 White Blood Count 3.9 L Red Blood Count 2.63 L Hemoglobin 8.7 L Hematocrit 26.5 L Mean Corpuscular Volume 100.8 Mean Corpuscular Hemoglobin 33.1 H Mean Corpuscular Hemoglobin Concent 32.8 Red Cell Distribution Width 17.6 H Platelet Count 58 L Mean Platelet Volume 10.0 Immature Granulocytes % 0.300 Neutrophils % 50.1 Lymphocytes % 31.0 Monocytes % 14.0 H Eosinophils % 4.1 Basophils % 0.5 Nucleated Red Blood Cells % 0.0 Immature Granulocytes # 0.010 Neutrophils # 1.9 Lymphocytes # 1.2 Monocytes # 0.5 Eosinophils # 0.2 Basophils # 0.0 Nucleated Red Blood Cells # 0.0 Sodium Level 134 L Potassium Level 3.9 Chloride Level 104 Carbon Dioxide Level 27 Anion Gap 3 L Blood Urea Nitrogen 4 L Creatinine 0.43 L Est Glomerular Filtrat Rate mL/min > 60 Glucose Level 104 Calcium Level 7.5 L Magnesium Level 1.9 Total Bilirubin 4.0 H Direct Bilirubin 0.10 Indirect Bilirubin 3.9 H Aspartate Amino Transf (AST/SGOT) 44 Alanine Aminotransferase (ALT/SGPT) 37 Alkaline Phosphatase 113 Total Protein 4.3 L Albumin 1.7 L Globulin 2.60 Albumin/Globulin Ratio 0.65 Subjective 24 Hr Interval Summary Free Text/Dictation Patient states her left foot and abdomen are no longer causing her pain but she does admit to discomfort in left breast. No acute overnight events. Aware GI wants to initiate Lasix but her BP has been running very low. Exam/Review of Systems Exam Vitals Vital Signs Date Temp Pulse Resp B/P (MAP) Pulse Ox O2 O2 Flow FiO2 Time Delivery Rate 08/11/18 98.0 81 16 86/50 (62) 92 Room Air 07:35 Intake and Output 08/10/18 08/10/18 08/11/18 1515:00 23:00 07:00 IntakeIntake Total 120 ml 500 ml OutputOutput Total 4200 ml 0 ml BalanceBalance -4080 ml 500 ml Exam General: Patient is laying in bed, no acute distress HEENT: scleral icterus Chest: tenderness to palpation left breast, no masses appreciated Lungs: clear to auscultation bilaterally. no wheezing or rhonchi CVS: S1, S2, regular rate and rhythm, no obvious murmurs GI: soft, non-tender to palpation, distension, bowel sounds heard. Skin: No new skin lesions Results Results 24hrs Laboratory Tests Test 08/11/18 04:55 White Blood Count 3.9 L Red Blood Count 2.63 L Hemoglobin 8.7 L Hematocrit 26.5 L Mean Corpuscular Volume 100.8 Mean Corpuscular Hemoglobin 33.1 H Mean Corpuscular Hemoglobin Concent 32.8 Red Cell Distribution Width 17.6 H Platelet Count 58 L Mean Platelet Volume 10.0 Immature Granulocytes % 0.300 Neutrophils % 50.1 Lymphocytes % 31.0 Monocytes % 14.0 H Eosinophils % 4.1 Basophils % 0.5 Nucleated Red Blood Cells % 0.0 Immature Granulocytes # 0.010 Neutrophils # 1.9 Lymphocytes # 1.2 Monocytes # 0.5 Eosinophils # 0.2 Basophils # 0.0 Nucleated Red Blood Cells # 0.0 Sodium Level 134 L Potassium Level 3.9 Chloride Level 104 Carbon Dioxide Level 27 Anion Gap 3 L Blood Urea Nitrogen 4 L Creatinine 0.43 L Est Glomerular Filtrat Rate mL/min > 60 Glucose Level 104 Calcium Level 7.5 L Magnesium Level 1.9 Total Bilirubin 4.0 H Direct Bilirubin 0.10 Indirect Bilirubin 3.9 H Aspartate Amino Transf (AST/SGOT) 44 Alanine Aminotransferase (ALT/SGPT) 37 Alkaline Phosphatase 113 Total Protein 4.3 L Albumin 1.7 L Globulin 2.60 Albumin/Globulin Ratio 0.65 Medications Medication Current Medications IV Flush (NS 3 ml) 3 ml PER PROTOCOL IV Last administered on 07/26/18 20:08; Admin Dose 3 ML; Start 07/04/18 at 18:30 Ondansetron HCl (Zofran Inj) 4 mg Q6H PRN IV NAUSEA/VOMITING Last administered on 08/11/18 03:16; Admin Dose 4 MG; Start 07/04/18 at 18:30 Docusate Sodium (Colace) 100 mg Q12H PRN PO .CONSTIPATION; Start 07/04/18 at 18:30 Albuterol (Proventil 0.083% (Neb)) 2.5 mg Q4H RESP THERAPY PRN HHN SHORTNESS OF BREATH; Start 07/04/18 at 18:30 Metoclopramide HCl (Reglan) 5 mg Q6H PRN IV NAUSEA Last administered on 08/11/18 06:20; Admin Dose 5 MG; Start 07/05/18 at 10:00 Midodrine (Proamatine) 10 mg TID PO Last administered on 08/10/18 20:20; Admin Dose 10 MG; Start 07/06/18 at 09:00 Albuterol (Ventolin Hfa) 2 puff Q4 INH Last administered on 08/11/18 06:44; Admin Dose 2 PUFF; Start 07/06/18 at 04:30 Rifaximin (Xifaxan) 200 mg TID PO Last administered on 08/10/18 20:20; Admin Dose 200 MG; Start 07/09/18 at 21:00 Acetaminophen/ Hydrocodone Bitart ([place] (5/325)) 1 tab Q6H PRN PO MODERATE PAIN LEVEL 4-6 Last administered on 08/08/18 06:18; Admin Dose 1 TAB; Start 07/14/18 at 17:30 Sodium Hypochlorite ([place] (Dilute )) 1 applic DAILY IRR Last administe red on 08/10/18 09:19; Admin Dose 1 APPLIC; Start 07/15/18 at 23:45 Simethicone (Mylicon) 80 mg Q6H PRN PO DISTENSION/GAS/BLOATING Last administered on 08/11/18 06:19; Admin Dose 80 MG; Start 07/16/18 at 15:30 Lactulose (Enulose) 10 gm DAILY PO Last administered on 08/10/18 09:18; Admin Dose 10 GM; Start 07/19/18 at 09:00 Diphenhydramine HCl (Benadryl) 25 mg Q8H PRN IV PRURITUS/ITCHING Last admin istered on 08/04/18 07:15; Admin Dose 25 MG; Start 07/20/18 at 18:30 Morphine Sulfate (morphine) 6 mg Q4H PRN PO SEVERE PAIN LEVEL 7-10 Last administered on 08/05/18 05:23; Admin Dose 6 MG; Start 07/20/18 at 23:30 Trazodone HCl (Desyrel) 50 mg HS PRN PO insomnia Last administered on 08/10/18 21:19; Admin Dose 50 MG; Start 07/21/18 at 23:30 Nystatin (Nystatin Powder) 1 applic BID TOP Last administered on 08/10/18 20:26; Admin Dose 1 APPLIC; Start 07/25/18 at 21:00 Nystatin (Nystatin Oint) 1 applic TID TOP Last administered on 08/10/18 20:26; Admin Dose 1 APPLIC; Start 07/27/18 at 21:00 Hydromorphone HCl (Dilaudid) 1 mg Q3H PRN IV SEVERE PAIN LEVEL 7-10 Last administered on 08/11/18 06:20; Admin Dose 1 MG; Start 07/30/18 at 13:00 Ondansetron HCl (Zofran Odt) 8 mg Q6H PRN ODT NAUSEA AND/OR VOMITING; Start 08/09/18 at 16:00 Spironolactone (Aldactone) 100 mg BID DIURETICS PO Last administered on 08/11/18at 06:20; Admin Dose 100 MG; Start 08/11/18 at 06:00 LOUIE RUIZ MD Aug 11, 2018 09:16
[2018-08-11] MEDS: LACTULOSE 30ML CUP PO SCH (09:33)
[2018-08-11] MEDS: MIDODRINE 5 MG TAB PO SCH ×3 (09:34→23:00)
[2018-08-11] MEDS: RIFAXIMIN 200 MG TAB PO SCH ×3 (09:34→22:59)
[2018-08-11] MEDS: NYSTATIN 15 GM OINT TOP SCH ×3 (09:37→21:00)
[2018-08-11] MEDS: NYSTATIN 30 GM POWDER BTL TOP SCH ×2 (09:38→21:00)
--- NOTE | 2018-08-11 11:01 | CONS ---
Assessment/Plan Assessment/Plan Hospital Course (Demo Recall) No acute changes, looks comfortable, no fevers over night Microbiology: Blood culture grew Klebsiella pneumonia on July 04 susceptible to Cipro and Levaquin, stool for C. difficile positive, urine culture negative MRSA swab negative, L foot wound culture grew Klebsiella pneumoniae susceptible to ming quinolones and staph species Physical examination: Chronically ill-appearing middle-aged woman who is in no distress. Head atraumatic normocephalic sclera nonicteric vehicle mucosa dry neck is supple chest rise symmetrical breath sounds diminished at bases. Heart: S1-S2. Abdomen soft bowel sounds present extremities with bilateral edema, left lower extremity dressing intact Assessment: 1. S/p sepsis with Klebsiella pneumonia bacteremia likely secondary to SBP vs #2 2. Left lower extremity abscess/ cellulitis==> neg OM, s/p i/d 07/18/18 with wound vac 3. C. difficile colitis==> treated 4. Alcoholic liver cirrhosis==> on tx list at [facility] 5. Recurrent ascites 6. Anemia and thrombocytopenia Plan: Remains stable off abx, pending dc to SNF Consultation Date/Type/Reason Admit Date/Time Jul 04, 2018 at 14:22 Initial Consult Date 07/07/18 Type of Consult id Requesting Provider: ANA SPICER Date/Time of Note DATE: 08/11/18 TIME: 11:01 Exam/Review of Systems Exam Vitals Vital Signs Date Temp Pulse Resp B/P (MAP) Pulse Ox O2 O2 Flow FiO2 Time Delivery Rate 08/11/18 98.0 81 16 86/50 (62) 92 Room Air 07:35 Intake and Output 08/10/18 08/10/18 08/11/18 1515:00 23:00 07:00 IntakeIntake Total 120 ml 500 ml OutputOutput Total 4200 ml 0 ml BalanceBalance -4080 ml 500 ml Results Result Diagram: 08/11/18 0455 08/11/18 0455 Results 24hrs Laboratory Tests Test 08/11/18 04:55 White Blood Count 3.9 L Red Blood Count 2.63 L Hemoglobin 8.7 L Hematocrit 26.5 L Mean Corpuscular Volume 100.8 Mean Corpuscular Hemoglobin 33.1 H Mean Corpuscular Hemoglobin Concent 32.8 Red Cell Distribution Width 17.6 H Platelet Count 58 L Mean Platelet Volume 10.0 Immature Granulocytes % 0.300 Neutrophils % 50.1 Lymphocytes % 31.0 Monocytes % 14.0 H Eosinophils % 4.1 Basophils % 0.5 Nucleated Red Blood Cells % 0.0 Immature Granulocytes # 0.010 Neutrophils # 1.9 Lymphocytes # 1.2 Monocytes # 0.5 Eosinophils # 0.2 Basophils # 0.0 Nucleated Red Blood Cells # 0.0 Sodium Level 134 L Potassium Level 3.9 Chloride Level 104 Carbon Dioxide Level 27 Anion Gap 3 L Blood Urea Nitrogen 4 L Creatinine 0.43 L Est Glomerular Filtrat Rate mL/min > 60 Glucose Level 104 Calcium Level 7.5 L Magnesium Level 1.9 Total Bilirubin 4.0 H Direct Bilirubin 0.10 Indirect Bilirubin 3.9 H Aspartate Amino Transf (AST/SGOT) 44 Alanine Aminotransferase (ALT/SGPT) 37 Alkaline Phosphatase 113 Total Protein 4.3 L Albumin 1.7 L Globulin 2.60 Albumin/Globulin Ratio 0.65 Medications Medication Current Medications IV Flush (NS 3 ml) 3 ml PER PROTOCOL IV Last administered on 07/26/18at 20:08; Admin Dose 3 ML; Start 07/04/18 at 18:30 Ondansetron HCl (Zofran Inj) 4 mg Q6H PRN IV NAUSEA/VOMITING Last administered on 08/11/18 09:27; Admin Dose 4 MG; Start 07/04/18 at 18:30 Docusate Sodium (Colace) 100 mg Q12H PRN PO .CONSTIPATION; Start 07/04/18 at 18:30 Albuterol (Proventil 0.083% (Neb)) 2.5 mg Q4H RESP THERAPY PRN HHN SHORTNESS OF BREATH; Start 07/04/18 at 18:30 Metoclopramide HCl (Reglan) 5 mg Q6H PRN IV NAUSEA Last administered on 08/11/18 06:20; Admin Dose 5 MG; Start 07/05/18 at 10:00 Midodrine (Proamatine) 10 mg TID PO Last administered on 08/11/18 09:34; Admin Dose 10 MG; Start 07/06/18 at 09:00 Albuterol (Ventolin Hfa) 2 puff Q4 INH Last administered on 08/11/18 09:41; Admin Dose 2 PUFF; Start 07/06/18 at 04:30 Rifaximin (Xifaxan) 200 mg TID PO Last administered on 08/11/18 09:34; Admin Dose 200 MG; Start 07/09/18 at 21:00 Acetaminophen/ Hydrocodone Bitart ([place] (5/325)) 1 tab Q6H PRN PO MODERATE PAIN LEVEL 4-6 Last administered on 08/08/18 06:18; Admin Dose 1 TAB; Start 07/14/18 at 17:30 Sodium Hypochlorite (Dakin'S (Dilute )) 1 applic DAILY IRR Last administered on 08/10/18 09:19; Admin Dose 1 APPLIC; Start 07/15/18 at 23:45 Simethicone (Mylicon) 80 mg Q6H PRN PO DISTENSION/GAS/BLOATING Last administered on 08/11/18 06:19; Admin Dose 80 MG; Start 07/16/18 at 15:30 Lactulose (Enulose) 10 gm DAILY PO Last administered on 08/11/18 09:33; Admin Dose 10 GM; Start 07/19/18 at 09:00 Diphenhydramine HCl (Benadryl) 25 mg Q8H PRN IV PRURITUS/ITCHING Last administered on 08/04/18 07:15; Admin Dose 25 MG; Start 07/20/18 at 18:30 Morphine Sulfate (morphine) 6 mg Q4H PRN PO SEVERE PAIN LEVEL 7-10 Last administered on 08/05/18 05:23; Admin Dose 6 MG; Start 07/20/18 at 23:30 Trazodone HCl (Desyrel) 50 mg HS PRN PO insomnia Last administered on 08/10/18 21:19; Admin Dose 50 MG; Start 07/21/18 at 23:30 Nystatin (Nystatin Powder) 1 applic BID TOP Last administered on 08/11/18 09:38 ; Admin Dose 1 APPLIC; Start 07/25/18 at 21:00 Nystatin (Nystatin Oint) 1 applic TID TOP Last administered on 08/11/18 09:37; Admin Dose 1 APPLIC; Start 07/27/18 at 21:00 Hydromorphone HCl (Dilaudid) 1 mg Q3H PRN IV SEVERE PAIN LEVEL 7-10 Last administered on 08/11/18 09:27; Admin Dose 1 MG; Start 07/30/18 at 13:00 Ondansetron HCl (Zofran Odt) 8 mg Q6H PRN ODT NAUSEA AND/OR VOMITING; Start 08/09/18 at 16:00 Spironolactone (Aldactone) 100 mg BID DIURETICS PO Last administered on 08/11/18at 06:20; Admin Dose 100 MG; Start 08/11/18 at 06:00 EMA MUELLER NP Aug 11, 2018 11:01
[2018-08-11 11:39] VITALS: BP 92/54; PULSE 80
[2018-08-11 14:30] VITALS: BP 109/53; PULSE 76; RESP 16
--- NOTE | 2018-08-11 15:35 | CONS ---
Consultation Date/Type/Reason Admit Date/Time Jul 04, 2018 at 14:22 Initial Consult Date 07/07/18 Type of Consult nephrology Requesting Provider: ANA SPICER Date/Time of Note DATE: 08/11/18 TIME: 15:35 Exam/Review of Systems Exam Vitals Vital Signs Date Temp Pulse Resp B/P (MAP) Pulse Ox O2 O2 Flow FiO2 Time Delivery Rate 08/11/18 98.2 76 16 109/53 97 Room Air 14:30 (71) Intake and Output 08/10/18 08/10/18 08/11/18 1515:00 23:00 07:00 IntakeIntake Total 120 ml 500 ml OutputOutput Total 4200 ml 0 ml BalanceBalance -4080 ml 500 ml Results Result Diagram: 08/11/18 0455 08/11/18 0455 Results 24hrs Laboratory Tests Test 08/11/18 04:55 08/11/18 14:38 White Blood Count 3.9 L Red Blood Count 2.63 L Hemoglobin 8.7 L Hematocrit 26.5 L Mean Corpuscular Volume 100.8 Mean Corpuscular Hemoglobin 33.1 H Mean Corpuscular Hemoglobin Concent 32.8 Red Cell Distribution Width 17.6 H Platelet Count 58 L Mean Platelet Volume 10.0 Immature Granulocytes % 0.300 Neutrophils % 50.1 Lymphocytes % 31.0 Monocytes % 14.0 H Eosinophils % 4.1 Basophils % 0.5 Nucleated Red Blood Cells % 0.0 Immature Granulocytes # 0.010 Neutrophils # 1.9 Lymphocytes # 1.2 Monocytes # 0.5 Eosinophils # 0.2 Basophils # 0.0 Nucleated Red Blood Cells # 0.0 Sodium Level 134 L Potassium Level 3.9 Chloride Level 104 Carbon Dioxide Level 27 Anion Gap 3 L Blood Urea Nitrogen 4 L Creatinine 0.43 L Est Glomerular Filtrat Rate mL/min > 60 Glucose Level 104 Calcium Level 7.5 L Magnesium Level 1.9 Total Bilirubin 4.0 H Direct Bilirubin 0.10 Indirect Bilirubin 3.9 H Aspartate Amino Transf (AST/SGOT) 44 Alanine Aminotransferase (ALT/SGPT) 37 Alkaline Phosphatase 113 Total Protein 4.3 L Albumin 1.7 L Globulin 2.60 Albumin/Globulin Ratio 0.65 Prothrombin Time 27.8 H Prothrombin Time Ratio 2.2 INR International Normalized Ratio 2.59 Medications Medication Current Medications IV Flush (NS 3 ml) 3 ml PER PROTOCOL IV Last administered on 07/26/18 20:08; Admin Dose 3 ML; Start 07/04/18 at 18:30 Ondansetron HCl (Zofran Inj) 4 mg Q6H PRN IV NAUSEA/VOMITING Last administered on 08/11/18 15:31; Admin Dose 4 MG; Start 07/04/18 at 18:30 Docusate Sodium (Colace) 100 mg Q12H PRN PO .CONSTIPATION; Start 07/04/18 at 18:30 Albuterol (Proventil 0.083% (Neb)) 2.5 mg Q4H RESP THERAPY PRN HHN SHORTNESS OF BREATH; Start 07/04/18 at 18:30 Metoclopramide HCl (Reglan) 5 mg Q6H PRN IV NAUSEA Last administered on 08/11/18 12:26; Admin Dose 5 MG; Start 07/05/18 at 10:00 Midodrine (Proamatine) 10 mg TID PO Last administered on 08/11/18 13:18; Admin Dose 10 MG; Start 07/06/18 at 09:00 Albuterol (Ventolin Hfa) 2 puff Q4 INH Last administered on 08/11/18 13:19; Admin Dose 2 PUFF; Start 07/06/18 at 04:30 Rifaximin (Xifaxan) 200 mg TID PO Last administered on 08/11/18 13:18; Admin Dose 200 MG; Start 07/09/18 at 21:00 Acetaminophen/ Hydrocodone Bitart ([place] (5/325)) 1 tab Q6H PRN PO MODERATE PAIN LEVEL 4-6 Last administered on 08/08/18 06:18; Admin Dose 1 TAB; Start 07/14/18 at 17:30 Sodium Hypochlorite (Dakin'S (Dilute 40)) 1 applic DAILY IRR Last administered on 08/10/18 09:19; Admin Dose 1 APPLIC; Start 07/15/18 at 23:45 Simethicone (Mylicon) 80 mg Q6H PRN PO DISTENSION/GAS/BLOATING Last administered on 08/11/18 15:31; Admin Dose 80 MG; Start 07/16/18 at 15:30 Lactulose (Enulose) 10 gm DAILY PO Last administered on 08/11/18 09:33; Admin Dose 10 GM; Start 07/19/18 at 09:00 Diphenhydramine HCl (Benadryl) 25 mg Q8H PRN IV PRURITUS/ITCHING Last administered on 08/04/18 07:15; Admin Dose 25 MG; Start 07/20/18 at 18:30 Morphine Sulfate (morphine) 6 mg Q4H PRN PO SEVERE PAIN LEVEL 7-10 Last administered on 08/05/18 05:23; Admin Dose 6 MG; Start 07/20/18 at 23:30 Trazodone HCl (Desyrel) 50 mg HS PRN PO insomnia Last administered on 08/10/18 21:19; Admin Dose 50 MG; Start 07/21/18 at 23:30 Nystatin (Nystatin Powder) 1 applic BID TOP Last administered on 08/11/18 09:38; Admin Dose 1 APPLIC; Start 07/25/18 at 21:00 Nystatin (Nystatin Oint) 1 applic TID TOP Last administered on 08/11/18 13:20; Admin Dose 1 APPLIC; Start 07/27/18 at 21:00 Hydromorphone HCl (Dilaudid) 1 mg Q3H PRN IV SEVERE PAIN LEVEL 7-10 Last administered on 08/11/18 15:31; Admin Dose 1 MG; Start 07/30/18 at 13:00 Ondansetron HCl (Zofran Odt) 8 mg Q6H PRN ODT NAUSEA AND/OR VOMITING; Start 08/09/18 at 16:00 Spironolactone (Aldactone) 100 mg BID DIURETICS PO Last administered on 08/11 06:20; Admin Dose 100 MG; Start 08/11/18 at 06:00 PAMELA ORTIZ MD Aug 11, 2018 15:35
[2018-08-11 20:00] VITALS: BP 98/50; PULSE 87; RESP 19
[2018-08-11] MEDS: traZODone 50 MG TAB PO PRN (23:00)
[2018-08-12] VITALS (8 sets, daily range): BP systolic 91–113; BP diastolic 48–57; PULSE 74–87; RESP 16–18
[2018-08-12] MEDS: ALBUTEROL HFA 8 GM INHALER INH SCH ×6 (01:10→20:14)
[2018-08-12] MEDS: METOCLOPRAMIDE 10 MG INJ IV PRN ×3 (01:10→22:47)
[2018-08-12] MEDS: HYDROmorphONE 1 MG/ML SYG IV PRN ×6 (01:11→22:47)
[2018-08-12] MEDS: SPIRONOLACTONE 50 MG TAB PO SCH ×2 (05:14→18:31)
[2018-08-12] MEDS: ONDANSETRON 4 MG INJ IV PRN ×2 (05:15→19:55)
[2018-08-12] MEDS: MIDODRINE 5 MG TAB PO SCH ×3 (08:34→20:12)
[2018-08-12] MEDS: NYSTATIN 30 GM POWDER BTL TOP SCH ×3 (08:34→22:06)
[2018-08-12] MEDS: RIFAXIMIN 200 MG TAB PO SCH ×3 (08:34→20:12)
[2018-08-12] MEDS: NYSTATIN 15 GM OINT TOP SCH ×4 (08:34→22:07)
[2018-08-12] MEDS: LACTULOSE 30ML CUP PO SCH (08:34)
[2018-08-12] MEDS: SODIUM HYPOCHLORITE (1/40) 1 APPLIC BTL IRR SCH (08:35)
--- NOTE | 2018-08-12 09:02 | PN ---
Date/Time of Note Date/Time of Note DATE: 08/12/18 TIME: 09:02 Assessment/Plan VTE Prophylaxis Risk score (from Ns)>0 risk: 5 SCD applied (from Ns): Yes Pharmacological prophylaxis: NA/contraindicated Pharm contraindication: thrombocytopenia Lines/Catheters IV [facility]ter [facility]from [facility] Mid Line Urinary Cath still in place: No Assessment/Plan Assessment/Plan 1. Left foot wound s/p debridement with wound VAC- stable - s/p skin allograft and wound vac placement 07/27/18 - MRI foot shows no evidence of OM - Podiatry on board and appreciate recommendations. continue wound care and wound vac. will consider placement of skin graft next week given patient still hospitalized. - Completed course of antibiotics 2. SBP with klebsiella bacteremia: - finished course of antibiotics - last culture from paracentesis negative 3. Cirrhosis with ascites - Status post paracentesis x 6 - Continue current increased dose of Aldactone 200mg BID. Will hold off on Lasix given low BP - Continue rifaximin/lactulose - has follow up with Dr. Gómez as outpatient, liver transplant preop EGD and colonoscopy shows nonbleeding varices and diverticulosis 4. Anemia - most likely 2/2 liver dz 5. Acute kidney injury likely secondary to hemodynamics and intravascular volume depletion-resolved - Nephrology consultation appreciated 6. Anemia of chronic disease - stable 7. C Diff diarrhea - s/p PO vanco course - resolving - repeat ordered but given on Lactulose, lab will not process sample 8. Disposition - Pending SNF placement - US L breast results pending Result Diagram: 08/12/18 0442 08/12/18 0442 Results 24hrs Laboratory Tests Test 08/11/18 14:38 08/12/18 04:42 Prothrombin Time 27.8 H Prothrombin Time Ratio 2.2 INR International Normalized Ratio 2.59 White Blood Count 4.1 L Red Blood Count 2.58 L Hemoglobin 8.7 L Hematocrit 27.0 L Mean Corpuscular Volume 104.7 H Mean Corpuscular Hemoglobin 33.7 H Mean Corpuscular Hemoglobin Concent 32.2 Red Cell Distribution Width 17.6 H Platelet Count 58 L Mean Platelet Volume 10.4 Immature Granulocytes % 0.200 Neutrophils % 51.5 Lymphocytes % 29.2 Monocytes % 14.0 H Eosinophils % 4.6 Basophils % 0.5 Nucleated Red Blood Cells % 0.0 Immature Granulocytes # 0.010 Neutrophils # 2.1 Lymphocytes # 1.2 Monocytes # 0.6 Eosinophils # 0.2 Basophils # 0.0 Nucleated Red Blood Cells # 0.0 Sodium Level 135 Potassium Level 4.1 Chloride Level 103 Carbon Dioxide Level 25 Anion Gap 7 Blood Urea Nitrogen 4 L Creatinine 0.47 Est Glomerular Filtrat Rate mL/min > 60 Glucose Level 108 Calcium Level 7.5 L Magnesium Level 1.9 Total Bilirubin 4.1 H Direct Bilirubin 0.20 Indirect Bilirubin 3.9 H Aspartate Amino Transf (AST/SGOT) 45 Alanine Aminotransferase (ALT/SGPT) 31 Alkaline Phosphatase 134 H Total Protein 4.6 L Albumin 1.8 L Globulin 2.80 Albumin/Globulin Ratio 0.64 Subjective 24 Hr Interval Summary Free Text/Dictation Patient slightly upset given breakfast and lunch order were wrong and shes hungry. Still with left breast discomfort but feels its associated with midline location. Exam/Review of Systems Exam Vitals Vital Signs Date Temp Pulse Resp B/P (MAP) Pulse Ox O2 O2 Flow FiO2 Time Delivery Rate 08/12/18 98.7 83 16 91/48 (62) 98 Room Air 07:45 Intake and Output 08/11/18 08/11/18 08/12/18 1515:00 23:00 07:00 IntakeIntake Total 350 ml OutputOutput Total 0 ml BalanceBalance 350 ml 0 ml Exam General: Patient is laying in bed, no acute distress HEENT: scleral icterus Chest: mild tenderness to palpation left breast, no masses appreciated Lungs: clear to auscultation bilaterally. no wheezing or rhonchi CVS: S1, S2, regular rate and rhythm, no obvious murmurs GI: soft, non-tender to palpation, distension, bowel sounds heard. Skin: No new skin lesions Results Results 24hrs Laboratory Tests Test 08/11/18 14:38 08/12/18 04:42 Prothrombin Time 27.8 H Prothrombin Time Ratio 2.2 INR International Normalized Ratio 2.59 White Blood Count 4.1 L Red Blood Count 2.58 L Hemoglobin 8.7 L Hematocrit 27.0 L Mean Corpuscular Volume 104.7 H Mean Corpuscular Hemoglobin 33.7 H Mean Corpuscular Hemoglobin Concent 32.2 Red Cell Distribution Width 17.6 H Platelet Count 58 L Mean Platelet Volume 10.4 Immature Granulocytes % 0.200 Neutrophils % 51.5 Lymphocytes % 29.2 Monocytes % 14.0 H Eosinophils % 4.6 Basophils % 0.5 Nucleated Red Blood Cells % 0.0 Immature Granulocytes # 0.010 Neutrophils # 2.1 Lymphocytes # 1.2 Monocytes # 0.6 Eosinophils # 0.2 Basophils # 0.0 Nucleated Red Blood Cells # 0.0 Sodium Level 135 Potassium Level 4.1 Chloride Level 103 Carbon Dioxide Level 25 Anion Gap 7 Blood Urea Nitrogen 4 L Creatinine 0.47 Est Glomerular Filtrat Rate mL/min > 60 Glucose Level 108 Calcium Level 7.5 L Magnesium Level 1.9 Total Bilirubin 4.1 H Direct Bilirubin 0.20 Indirect Bilirubin 3.9 H Aspartate Amino Transf (AST/SGOT) 45 Alanine Aminotransferase (ALT/SGPT) 31 Alkaline Phosphatase 134 H Total Protein 4.6 L Albumin 1.8 L Globulin 2.80 Albumin/Globulin Ratio 0.64 Medications Medication Current Medications IV Flush (NS 3 ml) 3 ml PER PROTOCOL IV Last administered on 07/26/18at 20:08; Admin Dose 3 ML; Start 07/04/18 at 18:30 Ondansetron HCl (Zofran Inj) 4 mg Q6H PRN IV NAUSEA/VOMITING Last administered on 08/12/18at 05:15; Admin Dose 4 MG; Start 07/04/18 at 18:30 Docusate Sodium (Colace) 100 mg Q12H PRN PO .CONSTIPATION; Start 07/04/18 at 18:30 Albuterol (Proventil 0.083% (Neb)) 2.5 mg Q4H RESP THERAPY PRN HHN SHORTNESS OF BREATH; Start 07/04/18 at 18:30 Metoclopramide HCl (Reglan) 5 mg Q6H PRN IV NAUSEA Last administered on 08/12/18at 01:10; Admin Dose 5 MG; Start 07/05/18 at 10:00 Midodrine (Proamatine) 10 mg TID PO Last administered on 08/12/18at 08:34; Admin Dose 10 MG; Start 07/06/18 at 09:00 Albuterol (Ventolin Hfa) 2 puff Q4 INH Last administered on 08/12/18at 08:35; Admin Dose 2 PUFF; Start 07/06/18 at 04:30 Rifaximin (Xifaxan) 200 mg TID PO Last administered on 08/12/18 08:34; Admin Dose 200 MG; Start 07/09/18 at 21:00 Acetaminophen/ Hydrocodone Bitart ([place] (5/325)) 1 tab Q6H PRN PO MODERATE PAIN LEVEL 4-6 Last administered on 08/08/18 06:18; Admin Dose 1 TAB; Start 07/14/18 at 17:30 Sodium Hypochlorite ([place]akin[place]S (Dilute )) 1 applic DAILY IRR Last administered on 08/12/18 08:35; Admin Dose 1 APPLIC; Start 07/15/18 at 23:45 Simethicone (Mylicon) 80 mg Q6H PRN PO DISTENSION/GAS/BLOATING Last administered on 08/11/18 15:31; Admin Dose 80 MG; Start 07/16/18 at 15:30 Lactulose (Enulose) 10 gm DAILY PO Last administered on 08/12/18 08:34; Admin Dose 10 GM; Start 07/19/18 at 09:00 Diphenhydramine HCl (Benadryl) 25 mg Q8H PRN IV PRURITUS/ITCHING Last administered on 08/04/18 07:15; Admin Dose 25 MG; Start 07/20/18 at 18:30 Morphine Sulfate (morphine) 6 mg Q4H PRN PO SEVERE PAIN LEVEL 7-10 Last administered on 08/05/18 05:23; Admin Dose 6 MG; Start 07/20/18 at 23:30 Trazodone HCl (Desyrel) 50 mg HS PRN PO insomnia Last administered on 08/11/18 23:00; Admin Dose 50 MG; Start 07/21/18 at 23:30 Nystatin (Nystatin Powder) 1 applic BID TOP Last administered on 08/12/18 08:34; Admin Dose 1 APPLIC; Start 07/25/18 at 21:00 Nystatin (Nystatin Oint) 1 applic TID TOP Last administered on 08/12/18 08:34; Admin Dose 1 APPLIC; Start 07/27/18 at 21:00 Hydromorphone HCl (Dilaudid) 1 mg Q3H PRN IV SEVERE PAIN LEVEL 7-10 Last a dministered on 08/12/18 05:15; Admin Dose 1 MG; Start 07/30/18 at 13:00 Ondansetron HCl (Zofran Odt) 8 mg Q6H PRN ODT NAUSEA AND/OR VOMITING; Start 08/09/18 at 16:00 Spironolactone (Aldactone) 100 mg BID DIURETICS PO Last administered on 08/12/18at 05:14; Admin Dose 100 MG; Start 08/11/18 at 06:00 LOUIE RUIZ MD Aug 12, 2018 09:02
[2018-08-12] MEDS: ONDANSETRON (ODT) 4 MG TAB ODT PRN ×2 (10:47→20:12)
[2018-08-12] MEDS ORDERED: ALBUMIN HUMAN 25% 50 ML IV ONE (11:00)
--- NOTE | 2018-08-12 13:53 | CONS ---
Assessment/Plan Assessment/Plan Assessment/Plan (Daily) 1. Left foot abscess with tissue necrosis, left foot. s/p excisional debridement, skin allograft and application of wound VAC (DOS: 07/27/18) 2. Cellulitis, left lower extremity. 3. Sepsis with Klebsiella pneumoniae bacteremia. 4. Clostridium difficile colitis. 5. Alcoholic liver cirrhosis with recurrent ascites. 6. Anemia and thrombocytopenia. Plan Patient will benefit from split thickness skin graft and planned for Wednesday08/16/18. Continue with wound VAC therapy and change dressings every 3 days. Previous cultures showing klebsiel pna and coag staph (-). IntraOp pathology showing necrotic tissue no malignancy. Continue with IV abx as recommended. Offload heels with pillows. 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 She reports that she is on the list for a liver transplant. Recommend patient to have home VAC and continued VAC dressing changes upon discharge. Patient to follow up in [facility] in 1 week from discharge date. Consultation Date/Type/Reason Admit Date/Time Jul 04, 2018 at 14:22 Initial Consult Date 07/07/18 Requesting Provider: ANA SPICER Date/Time of Note DATE: 08/12/18 TIME: 13:51 24 HR Interval Summary Free Text/Dictation No acute events overnight. Exam/Review of Systems Exam Vitals Vital Signs Date Temp Pulse Resp B/P (MAP) Pulse Ox O2 O2 Flow FiO2 Time Delivery Rate 08/12/18 97/48 (64) 12:45 08/12/18 83 11:48 08/12/18 98.7 16 98 Room Air 07:45 Intake and Output 08/11/18 08/11/18 08/12/18 1414:59 22:59 06:59 IntakeIntake Total 350 ml OutputOutput Total 0 ml BalanceBalance 350 ml 0 ml Results Result Diagram: 08/12/18 0442 08/12/18 0442 Results 24hrs Laboratory Tests Test 08/11/18 14:38 08/12/18 04:42 Prothrombin Time 27.8 H Prothrombin Time Ratio 2.2 INR International Normalized Ratio 2.59 White Blood Count 4.1 L Red Blood Count 2.58 L Hemoglobin 8.7 L Hematocrit 27.0 L Mean Corpuscular Volume 104.7 H Mean Corpuscular Hemoglobin 33.7 H Mean Corpuscular Hemoglobin Concent 32.2 Red Cell Distribution Width 17.6 H Platelet Count 58 L Mean Platelet Volume 10.4 Immature Granulocytes % 0.200 Neutrophils % 51.5 Lymphocytes % 29.2 Monocytes % 14.0 H Eosinophils % 4.6 Basophils % 0.5 Nucleated Red Blood Cells % 0.0 Immature Granulocytes # 0.010 Neutrophils # 2.1 Lymphocytes # 1.2 Monocytes # 0.6 Eosinophils # 0.2 Basophils # 0.0 Nucleated Red Blood Cells # 0.0 Sodium Level 135 Potassium Level 4.1 Chloride Level 103 Carbon Dioxide Level 25 Anion Gap 7 Blood Urea Nitrogen 4 L Creatinine 0.47 Est Glomerular Filtrat Rate mL/min > 60 Glucose Level 108 Calcium Level 7.5 L Magnesium Level 1.9 Total Bilirubin 4.1 H Direct Bilirubin 0.20 Indirect Bilirubin 3.9 H Aspartate Amino Transf (AST/SGOT) 45 Alanine Aminotransferase (ALT/SGPT) 31 Alkaline Phosphatase 134 H Total Protein 4.6 L Albumin 1.8 L Globulin 2.80 Albumin/Globulin Ratio 0.64 Medications Medication Current Medications IV Flush (NS 3 ml) 3 ml PER PROTOCOL IV Last administered on 07/26/18 20:08; Admin Dose 3 ML; Start 07/04/18 at 18:30 Ondansetron HCl (Zofran Inj) 4 mg Q6H PRN IV NAUSEA/VOMITING Last administered on 08/12/18 05:15; Admin Dose 4 MG; Start 07/04/18 at 18:30 Docusate Sodium (Colace) 100 mg Q12H PRN PO .CONSTIPATION; Start 07/04/18 at 18:30 Albuterol (Proventil 0.083% (Neb)) 2.5 mg Q4H RESP THERAPY PRN HHN SHORTNESS OF BREATH; Start 07/04/18 at 18:30 Metoclopramide HCl (Reglan) 5 mg Q6H PRN IV NAUSEA Last administered on 08/12/18 01:10; Admin Dose 5 MG; Start 07/05/18 at 10:00 Midodrine (Proamatine) 10 mg TID PO Last administered on 08/12/18 12:47; Admin Dose 10 MG; Start 07/06/18 at 09:00 Albuterol (Ventolin Hfa) 2 puff Q4 INH Last administered on 08/12/18 12:48; Admin Dose 2 PUFF; Start 07/06/18 at 04:30 Rifaximin (Xifaxan) 200 mg TID PO Last administered on 08/12/18 12:47; Admin Dose 200 MG; Start 07/09/18 at 21:00 Acetaminophen/ Hydrocodone Bitart ([place] (5/325)) 1 tab Q6H PRN PO MODERATE PAIN LEVEL 4-6 Last administered on 08/08/18 06:18; Admin Dose 1 TAB; Start 07/14/18 at 17:30 Sodium Hypochlorite (Dakin'S (Dilute )) 1 applic DAILY IRR Last administered on 08/12/18 08:35; Admin Dose 1 APPLIC; Start 07/15/18 at 23:45 Simethicone (Mylicon) 80 mg Q6H PRN PO DISTENSION/GAS/BLOATING Last administered on 08/11/18 15:31; Admin Dose 80 MG; Start 07/16/18 at 15:30 Lactulose (Enulose) 10 gm DAILY PO Last administered on 08/12/18 08:34; Admin Dose 10 GM; Start 07/19/18 at 09:00 Diphenhydramine HCl (Benadryl) 25 mg Q8H PRN IV PRURITUS/ITCHING Last administered on 08/04/18 07:15; Admin Dose 25 MG; Start 07/20/18 at 18:30 Morphine Sulfate (morphine) 6 mg Q4H PRN PO SEVERE PAIN LEVEL 7-10 Last administered on 08/05/18 05:23; Admin Dose 6 MG; Start 07/20/18 at 23:30 Trazodone HCl (Desyrel) 50 mg HS PRN PO insomnia Last administered on 08/11/18 23:00; Admin Dose 50 MG; Start 07/21/18 at 23:30 Nystatin (Nystatin Powder) 1 applic BID TOP Last administered on 08/12/18 08:34; Admin Dose 1 APPLIC; Start 07/25/18 at 21:00 Nystatin (Nystatin Oint) 1 applic TID TOP Last administered on 08/12/18 12:47; Admin Dose 1 APPLIC; Start 07/27/18 at 21:00 Hydromorphone HCl (Dilaudid) 1 mg Q3H PRN IV SEVERE PAIN LEVEL 7-10 Last administered on 08/12/18 11:50; Admin Dose 1 MG; Start 07/30/18 at 13:00 Ondansetron HCl (Zofran Odt) 8 mg Q6H PRN ODT NAUSEA AND/OR VOMITING Last administered on 08/12/18 10:47; Admin Dose 8 MG; Start 08/09/18 at 16:00 Spironolactone (Aldactone) 100 mg BID DIURETICS PO Last administered on 08/12/18 05:14; Admin Dose 100 MG; Start 08/11/18 at 06:00 JEANINE SAWYER DPM Aug 12, 2018 13:53
--- NOTE | 2018-08-12 14:36 | CONS ---
Assessment/Plan Assessment/Plan Hospital Course (Demo Recall) No events overnight patient is alert feels good denies pain, no fevers overnight. She is off antibiotics Microbiology: Blood culture grew Klebsiella pneumonia on July 04 susceptible to Cipro and Levaquin, stool for C. difficile positive, urine culture negative MRSA swab negative, L foot wound culture grew Klebsiella pneumoniae susceptible to ming quinolones and staph species Physical examination: Chronically ill-appearing middle-aged woman who is in no distress. Head atraumatic normocephalic sclera nonicteric vehicle mucosa dry neck is supple chest rise symmetrical breath sounds diminished at bases. Heart: S1-S2. Abdomen soft bowel sounds present extremities with bilateral edema, left lower extremity dressing intact Assessment: 1. S/p sepsis with Klebsiella pneumonia bacteremia likely secondary to SBP vs #2 2. Left lower extremity abscess/ cellulitis==> neg OM, s/p i/d 07/18/18 with wound vac 3. C. difficile colitis==> treated 4. Alcoholic liver cirrhosis==> on tx list at [facility] 5. Recurrent ascites 6. Anemia and thrombocytopenia Plan: Remains stable off abx, podiatry follows, plan for skin graft Consultation Date/Type/Reason Admit Date/Time Jul 04, 2018 at 14:22 Initial Consult Date 07/07/18 Type of Consult id Requesting Provider: ANA SPICER Date/Time of Note DATE: 08/12/18 TIME: 14:35 Exam/Review of Systems Exam Vitals Vital Signs Date Temp Pulse Resp B/P (MAP) Pulse Ox O2 O2 Flow FiO2 Time Delivery Rate 08/12/18 98.3 74 16 113/53 99 Room Air 14:33 (73) Intake and Output 08/11/18 08/11/18 08/12/18 1414:59 22:59 06:59 IntakeIntake Total 350 ml OutputOutput Total 0 ml BalanceBalance 350 ml 0 ml Results Result Diagram: 08/12/182 08/12/18441 Results 24hrs Laboratory Tests Test 08/11/18 14:38 08/12/18 04:42 Prothrombin Time 27.8 H Prothrombin Time Ratio 2.2 INR International Normalized Ratio 2.59 White Blood Count 4.1 L Red Blood Count 2.58 L Hemoglobin 8.7 L Hematocrit 27.0 L Mean Corpuscular Volume 104.7 H Mean Corpuscular Hemoglobin 33.7 H Mean Corpuscular Hemoglobin Concent 32.2 Red Cell Distribution Width 17.6 H Platelet Count 58 L Mean Platelet Volume 10.4 Immature Granulocytes % 0.200 Neutrophils % 51.5 Lymphocytes % 29.2 Monocytes % 14.0 H Eosinophils % 4.6 Basophils % 0.5 Nucleated Red Blood Cells % 0.0 Immature Granulocytes # 0.010 Neutrophils # 2.1 Lymphocytes # 1.2 Monocytes # 0.6 Eosinophils # 0.2 Basophils # 0.0 Nucleated Red Blood Cells # 0.0 Sodium Level 135 Potassium Level 4.1 Chloride Level 103 Carbon Dioxide Level 25 Anion Gap 7 Blood Urea Nitrogen 4 L Creatinine 0.47 Est Glomerular Filtrat Rate mL/min > 60 Glucose Level 108 Calcium Level 7.5 L Magnesium Level 1.9 Total Bilirubin 4.1 H Direct Bilirubin 0.20 Indirect Bilirubin 3.9 H Aspartate Amino Transf (AST/SGOT) 45 Alanine Aminotransferase (ALT/SGPT) 31 Alkaline Phosphatase 134 H Total Protein 4.6 L Albumin 1.8 L Globulin 2.80 Albumin/Globulin Ratio 0.64 Medications Medication Current Medications IV Flush (NS 3 ml) 3 ml PER PROTOCOL IV Last administered on 07/26/18 20:08; Admin Dose 3 ML; Start 07/04/18 at 18:30 Ondansetron HCl (Zofran Inj) 4 mg Q6H PRN IV NAUSEA/VOMITING Last administered on 08/12/18 05:15; Admin Dose 4 MG; Start 07/04/18 at 18:30 Docusate Sodium (Colace) 100 mg Q12H PRN PO .CONSTIPATION; Start 07/04/18 at 18:30 Albuterol (Proventil 0.083% (Neb)) 2.5 mg Q4H RESP THERAPY PRN HHN SHORTNESS OF BREATH; Start 07/04/18 at 18:30 Metoclopramide HCl (Reglan) 5 mg Q6H PRN IV NAUSEA Last administered on 08/12/18 01:10; Admin Dose 5 MG; Start 07/05/18 at 10:00 Midodrine (Proamatine) 10 mg TID PO Last administered on 08/12/18 12:47; Admin Dose 10 MG; Start 07/06/18 at 09:00 Albuterol (Ventolin Hfa) 2 puff Q4 INH Last administered on 08/12/18 12:48; Admin Dose 2 PUFF; Start 07/06/18 at 04:30 Rifaximin (Xifaxan) 200 mg TID PO Last administered on 08/12/18 12:47; Admin Dose 200 MG; Start 07/09/18 at 21:00 Acetaminophen/ Hydrocodone Bitart ([place] (5/325)) 1 tab Q6H PRN PO MODERATE PAIN LEVEL 4-6 Last administered on 08/08/18 06:18; Admin Dose 1 TAB; Start 07/14/18 at 17:30 Sodium Hypochlorite (Dakin'S (Dilute )) 1 applic DAILY IRR Last administered on 08/12/18 08:35; Admin Dose 1 APPLIC; Start 07/15/18 at 23:45 Simethicone (Mylicon) 80 mg Q6H PRN PO DISTENSION/GAS/BLOATING Last administered on 08/11/18 15:31; Admin Dose 80 MG; Start 07/16/18 at 15:30 Lactulose (Enulose) 10 gm DAILY PO Last administered on 08/12/18 08:34; Admin Dose 10 GM; Start 07/19/18 at 09:00 Diphenhydramine HCl (Benadryl) 25 mg Q8H PRN IV PRURITUS/ITCHING Last administered on 08/04/18 07:15; Admin Dose 25 MG; Start 07/20/18 at 18:30 Morphine Sulfate (morphine) 6 mg Q4H PRN PO SEVERE PAIN LEVEL 7-10 Last administered on 08/05/18 05:23; Admin Dose 6 MG; Start 07/20/18 at 23:30 Trazodone HCl (Desyrel) 50 mg HS PRN PO insomnia Last administered on 08/11/18 23:00; Admin Dose 50 MG; Start 07/21/18 at 23:30 Nystatin (Nystatin Powder) 1 applic BID TOP Last administered on 08/12/18 08:34; Admin Dose 1 APPLIC; Start 07/25/18 at 21:00 Nystatin (Nystatin Oint) 1 applic TID TOP Last administered on 08/12/18 12:47; Admin Dose 1 APPLIC; Start 07/27/18 at 21:00 Hydromorphone HCl (Dilaudid) 1 mg Q3H PRN IV SEVERE PAIN LEVEL 7-10 Last administered on 08/12/18 11:50; Admin Dose 1 MG; Start 07/30/18 at 13:00 Ondansetron HCl (Zofran Odt) 8 mg Q6H PRN ODT NAUSEA AND/OR VOMITING Last administered on 08/12/18 10:47; Admin Dose 8 MG; Start 08/09/18 at 16:00 Spironolactone (Aldactone) 100 mg BID DIURETICS PO Last administered on 08/12/18at 05:14; Admin Dose 100 MG; Start 08/11/18 at 06:00 EMA MUELLER NP Aug 12, 2018 14:36
--- NOTE | 2018-08-12 16:28 | CONS ---
Assessment/Plan Assessment/Plan Assessment/Plan (Daily) Assessment/Plan (Daily) 48 yo female presents with left foot cellulitis 1. Alcoholic Cirrhosis of liver. -on transplant list at [facility] -AFP wnl 2. Anemia of chronic disease. 3. Pancytopenia secondary to #1 4. 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 5. Cellulitis, status post skin graft and wound VAC. -K. pneumoniae and coagulase neg staph in wound -followed by podiatry 6. Clostridium difficile colitis. -resolved 7. SBP -resolved, treatment complete 8. S/P colonoscopy 08/04 found diverticulosis and external hemorrhoids 9. S/P EGD 08/04 shows congestive gastropathy, esophageal varices 10. Anasarca -on aldactone 50 mg BID PO US of abd 08/01: 1. Coarse nodular liver consistent with cirrhosis. No focal hepatic masses. 2. Status post cholecystectomy. No biliary duct dilatation. 3. Patent portal vein with pulsatile hepatopetal flow. 4. Suspect portal hypertension as demonstrated by moderate ascites. 5. Moderate size right pleural effusion as well. 6. Increased right renal cortical echogenicity suggest medical renal disease PLAN: Increase Aldactone 100 mg p.o. twice daily Consider giving lasix 20 mg PO x 1 Salt restriction with fluid restriction Spoke with charge regarding protocol of removing C diff isolation. She will follow up Continue present care Paracentesis as needed Monitor for GI bleeding High fiber diet Consultation Date/Type/Reason Admit Date/Time Jul 04, 2018 at 14:22 Initial Consult Date 07/07/18 Requesting Provider: ANA SPICER Date/Time of Note DATE: 08/12/18 TIME: 16:27 24 HR Interval Summary Free Text/Dictation And feels better, has good urine output, no diarrhea Exam/Review of Systems Exam Vitals Vital Signs Date Temp Pulse Resp B/P (MAP) Pulse Ox O2 O2 Flow FiO2 Time Delivery Rate 08/12/18 98.3 74 16 113/53 99 Room Air 14:33 (73) Intake and Output 08/11/18 08/11/18 08/12/18 1414:59 22:59 06:59 IntakeIntake Total 350 ml OutputOutput Total 0 ml BalanceBalance 350 ml 0 ml Constitutional: alert, oriented, well developed Psych: no complaints, nl mood/affect Head: normocephalic, atraumatic Eyes: nl conjunctiva, EOMI, nl lids, nl sclera, PERRL ENMT: nl external ears & nose, nl lips & teeth, nl nasal mucosa & septum Neck: supple, non-tender Respiratory: clear to auscultation, normal air movement Cardiovascular: regular rate and rhythm, nl pulses Gastrointestinal: soft, nl liver, spleen, non-tender Musculoskeletal: nl extremities to inspection, nl gait and stance Extremities: normal pulses 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: CIVIL STRUCTURAL ENGINEER II-XII intact, nl mental status, nl speech, nl strength Skin: nl turgor; No rash or lesions Lymph: nl lymph nodes Results Result Diagram: 08/12/1844108/12/18441 Results 24hrs Laboratory Tests Test 08/12/18 04:42 White Blood Count 4.1 L Red Blood Count 2.58 L Hemoglobin 8.7 L Hematocrit 27.0 L Mean Corpuscular Volume 104.7 H Mean Corpuscular Hemoglobin 33.7 H Mean Corpuscular Hemoglobin Concent 32.2 Red Cell Distribution Width 17.6 H Platelet Count 58 L Mean Platelet Volume 10.4 Immature Granulocytes % 0.200 Neutrophils % 51.5 Lymphocytes % 29.2 Monocytes % 14.0 H Eosinophils % 4.6 Basophils % 0.5 Nucleated Red Blood Cells % 0.0 Immature Granulocytes # 0.010 Neutrophils # 2.1 Lymphocytes # 1.2 Monocytes # 0.6 Eosinophils # 0.2 Basophils # 0.0 Nucleated Red Blood Cells # 0.0 Sodium Level 135 Potassium Level 4.1 Chloride Level 103 Carbon Dioxide Level 25 Anion Gap 7 Blood Urea Nitrogen 4 L Creatinine 0.47 Est Glomerular Filtrat Rate mL/min > 60 Glucose Level 108 Calcium Level 7.5 L Magnesium Level 1.9 Total Bilirubin 4.1 H Direct Bilirubin 0.20 Indirect Bilirubin 3.9 H Aspartate Amino Transf (AST/SGOT) 45 Alanine Aminotransferase (ALT/SGPT) 31 Alkaline Phosphatase 134 H Total Protein 4.6 L Albumin 1.8 L Globulin 2.80 Albumin/Globulin Ratio 0.64 Medications Medication Current Medications IV Flush (NS 3 ml) 3 ml PER PROTOCOL IV Last administered on 07/26/18at 20:08; Admin Dose 3 ML; Start 07/04/18 at 18:30 Ondansetron HCl (Zofran Inj) 4 mg Q6H PRN IV NAUSEA/VOMITING Last administered on 08/12/18at 05:15; Admin Dose 4 MG; Start 07/04/18 at 18:30 Docusate Sodium (Colace) 100 mg Q12H PRN PO .CONSTIPATION; Start 07/04/18 at 18:30 Albuterol (Proventil 0.083% (Neb)) 2.5 mg Q4H RESP THERAPY PRN HHN SHORTNESS OF BREATH; Start 07/04/18 at 18:30 Metoclopramide HCl (Reglan) 5 mg Q6H PRN IV NAUSEA Last administered on 08/12/18 16:01; Admin Dose 5 MG; Start 07/05/18 at 10:00 Midodrine (Proamatine) 10 mg TID PO Last administered on 08/12/18 12:47; Admin Dose 10 MG; Start 07/06/18 at 09:00 Albuterol (Ventolin Hfa) 2 puff Q4 INH Last administered on 08/12/18 16:02; Admin Dose 2 PUFF; Start 07/06/18 at 04:30 Rifaximin (Xifaxan) 200 mg TID PO Last administered on 08/12/18 12:47; Admin Dose 200 MG; Start 07/09/18 at 21:00 Acetaminophen/ Hydrocodone Bitart ([place] (5/325)) 1 tab Q6H PRN PO MODERATE PAIN LEVEL 4-6 Last administered on 08/08/18 06:18; Admin Dose 1 TAB; Start 07/14/18 at 17:30 Sodium Hypochlorite (Dakin'S (Dilute 1/40)) 1 applic DAILY IRR Last administered on 08/12/18 08:35; Admin Dose 1 APPLIC; Start 07/15/18 at 23:45 Simethicone (Mylicon) 80 mg Q6H PRN PO DISTENSION/GAS/BLOATING Last administered on 08/11/18 15:31; Admin Dose 80 MG; Start 07/16/18 at 15:30 Lactulose (Enulose) 10 gm DAILY PO Last administered on 08/12/18 08:34; Admin Dose 10 GM; Start 07/19/18 at 09:00 Diphenhydramine HCl (Benadryl) 25 mg Q8H PRN IV PRURITUS/ITCHING Last administered on 08/04/18 07:15; Admin Dose 25 MG; Start 07/20/18 at 18:30 Morphine Sulfate (morphine) 6 mg Q4H PRN PO SEVERE PAIN LEVEL 7-10 Last administered on 08/05/18 05:23; Admin Dose 6 MG; Start 07/20/18 at 23:30 Trazodone HCl (Desyrel) 50 mg HS PRN PO insomnia Last administered on 08/11/18 23:00; Admin Dose 50 MG; Start 07/21/18 at 23:30 Nystatin (Nystatin Powder) 1 applic BID TOP Last administered on 08/12/18 08:34; Admin Dose 1 APPLIC; Start 07/25/18 at 21:00 Nystatin (Nystatin Oint) 1 applic TID TOP Last administered on 08/12/18 12:47; Admin Dose 1 APPLIC; Start 07/27/18 at 21:00 Hydromorphone HCl (Dilaudid) 1 mg Q3H PRN IV SEVERE PAIN LEVEL 7-10 Last administered on 08/12/18 16:01; Admin Dose 1 MG; Start 07/30/18 at 13:00 Ondansetron HCl (Zofran Odt) 8 mg Q6H PRN ODT NAUSEA AND/OR VOMITING Last administered on 08/12/18 10:47; Admin Dose 8 MG; Start 08/09/18 at 16:00 Spironolactone (Aldactone) 100 mg BID DIURETICS PO Last administered on 08/12/18 05:14; Admin Dose 100 MG; Start 08/11/18 at 06:00 TRISTIAN NAIDU MD Aug 12, 2018 16:28
[2018-08-12] MEDS: traZODone 50 MG TAB PO PRN (21:11)
[2018-08-13 02:00] VITALS: BP 102/53; PULSE 80; RESP 18
[2018-08-13] MEDS: ONDANSETRON (ODT) 4 MG TAB ODT PRN ×2 (02:14→16:32)
[2018-08-13] MEDS: HYDROmorphONE 1 MG/ML SYG IV PRN ×5 (02:14→19:42)
[2018-08-13] MEDS: ALBUTEROL HFA 8 GM INHALER INH SCH ×6 (02:14→21:00)
[2018-08-13] MEDS: SPIRONOLACTONE 50 MG TAB PO SCH ×2 (06:18→17:54)
[2018-08-13] MEDS: METOCLOPRAMIDE 10 MG INJ IV PRN ×3 (06:23→19:50)
[2018-08-13 08:02] VITALS: BP 92/51; PULSE 84; RESP 17
[2018-08-13] MEDS: SODIUM HYPOCHLORITE (1/40) 1 APPLIC BTL IRR SCH (08:53)
[2018-08-13] MEDS: RIFAXIMIN 200 MG TAB PO SCH ×3 (08:53→20:56)
[2018-08-13] MEDS: MIDODRINE 5 MG TAB PO SCH ×3 (08:53→20:56)
[2018-08-13] MEDS: LACTULOSE 30ML CUP PO SCH (08:53)
[2018-08-13] MEDS: NYSTATIN 30 GM POWDER BTL TOP SCH ×2 (08:59→21:00)
[2018-08-13] MEDS: NYSTATIN 15 GM OINT TOP SCH ×3 (08:59→20:59)
--- NOTE | 2018-08-13 09:04 | PN ---
Date/Time of Note Date/Time of Note DATE: 08/13/18 TIME: 09:04 Assessment/Plan VTE [place]axis [place] [facility] [place]: 6 [place] [facility] [place] Yes Pharmacological prophylaxis: NA/contraindicated Pharm contraindication: thrombocytopenia Lines/Catheters [facility] Mid Line Urinary Cath still in place: No Assessment/Plan Assessment/Plan 1. Left foot wound s/p debridement with wound VAC- stable - s/p skin allograft and wound vac placement 07/27/18 - MRI foot shows no evidence of OM - Podiatry on board and appreciate recommendations. continue wound care and wound vac. will plan for skin graft next week if patient remains inhouse - Completed course of antibiotics 2. SBP with klebsiella bacteremia: - finished course of antibiotics - last culture from paracentesis negative 3. Cirrhosis with ascites - Status post paracentesis x 6 - Continue current increased dose of Aldactone 100mg BID. Will hold off on Lasix given low BP - Continue rifaximin/lactulose - has follow up with Dr. Gómez as outpatient, liver transplant preop EGD and colonoscopy shows nonbleeding varices and diverticulosis 4. Anemia - most likely 2/2 liver dz 5. Acute kidney injury likely secondary to hemodynamics and intravascular volume depletion-resolved - Nephrology consultation appreciated 6. Anemia of chronic disease - stable 7. C Diff diarrhea - s/p PO vanco course - resolving - repeat ordered but given on Lactulose, lab will not process sample 8. Disposition - Pending SNF placement Result Diagram: 08/13/18 0525 08/13/18 0525 Results 24hrs Laboratory Tests Test 08/13/18 05:25 White Blood Count 4.0 L Red Blood Count 2.55 L Hemoglobin 8.6 L Hematocrit 26.6 L Mean Corpuscular Volume 104.3 H Mean Corpuscular Hemoglobin 33.7 H Mean Corpuscular Hemoglobin Concent 32.3 Red Cell Distribution Width 17.7 H Platelet Count 49 L Mean Platelet Volume 10.9 H Immature Granulocytes % 0.500 H Neutrophils % 48.4 Lymphocytes % 31.6 Monocytes % 15.0 H Eosinophils % 4.0 Basophils % 0.5 Nucleated Red Blood Cells % 0.0 Immature Granulocytes # 0.020 Neutrophils # 1.9 Lymphocytes # 1.3 Monocytes # 0.6 Eosinophils # 0.2 Basophils # 0.0 Nucleated Red Blood Cells # 0.0 Sodium Level 134 L Potassium Level 4.3 Chloride Level 102 Carbon Dioxide Level 28 Anion Gap 4 L Blood Urea Nitrogen 4 L Creatinine 0.52 Est Glomerular Filtrat Rate mL/min > 60 Glucose Level 81 Calcium Level 7.6 L Total Bilirubin 4.2 H Direct Bilirubin 0.20 Indirect Bilirubin 4.0 H Aspartate Amino Transf (AST/SGOT) 60 H Alanine Aminotransferase (ALT/SGPT) 45 Alkaline Phosphatase 140 H Total Protein 5.1 L Albumin 2.1 L Globulin 3.00 Albumin/Globulin Ratio 0.70 Subjective 24 Hr Interval Summary Free Text/Dictation Patient concerned about swelling of legs bilaterally but discussed since not ambulating well will continue to swell. No acute overnight events. Exam/Review of Systems Exam Vitals Vital Signs Date Temp Pulse Resp B/P (MAP) Pulse Ox O2 O2 Flow FiO2 Time Delivery Rate 08/13/18 98.1 84 17 92/51 (65) 96 Room Air 08:02 Intake and Output 08/12/18 08/12/18 08/13/18 1515:00 23:00 07:00 IntakeIntake Total 500 ml 200 ml 240 ml BalanceBalance 500 ml 200 ml 240 ml Exam General: Patient is laying in bed, no acute distress HEENT: mild scleral icterus Chest: mild tenderness to palpation left breast, no masses appreciated Lungs: clear to auscultation bilaterally. no wheezing or rhonchi CVS: S1, S2, regular rate and rhythm, no obvious murmurs GI: soft, non-tender to palpation, distension, bowel sounds heard. Ext: swelling LE b/l. pitting LLE Skin: No new skin lesions Results Results 24hrs Laboratory Tests Test 08/13/18 05:25 White Blood Count 4.0 L Red Blood Count 2.55 L Hemoglobin 8.6 L Hematocrit 26.6 L Mean Corpuscular Volume 104.3 H Mean Corpuscular Hemoglobin 33.7 H Mean Corpuscular Hemoglobin Concent 32.3 Red Cell Distribution Width 17.7 H Platelet Count 49 L Mean Platelet Volume 10.9 H Immature Granulocytes % 0.500 H Neutrophils % 48.4 Lymphocytes % 31.6 Monocytes % 15.0 H Eosinophils % 4.0 Basophils % 0.5 Nucleated Red Blood Cells % 0.0 Immature Granulocytes # 0.020 Neutrophils # 1.9 Lymphocytes # 1.3 Monocytes # 0.6 Eosinophils # 0.2 Basophils # 0.0 Nucleated Red Blood Cells # 0.0 Sodium Level 134 L Potassium Level 4.3 Chloride Level 102 Carbon Dioxide Level 28 Anion Gap 4 L Blood Urea Nitrogen 4 L Creatinine 0.52 Est Glomerular Filtrat Rate mL/min > 60 Glucose Level 81 Calcium Level 7.6 L Total Bilirubin 4.2 H Direct Bilirubin 0.20 Indirect Bilirubin 4.0 H Aspartate Amino Transf (AST/SGOT) 60 H Alanine Aminotransferase (ALT/SGPT) 45 Alkaline Phosphatase 140 H Total Protein 5.1 L Albumin 2.1 L Globulin 3.00 Albumin/Globulin Ratio 0.70 Medications Medication Current Medications IV Flush (NS 3 ml) 3 ml PER PROTOCOL IV Last administered on 07/26/18 20:08; Admin Dose 3 ML; Start 07/04/18 at 18:30 Docusate Sodium (Colace) 100 mg Q12H PRN PO .CONSTIPATION; Start 07/04/18 at 18:30 Albuterol (Proventil 0.083% (Neb)) 2.5 mg Q4H RESP THERAPY PRN HHN SHORTNESS OF BREATH; Start 07/04/18 at 18:30 Metoclopramide HCl (Reglan) 5 mg Q6H PRN IV NAUSEA Last administered on 08/13/18 06:23; Admin Dose 5 MG; Start 07/05/18 at 10:00 Midodrine (Proamatine) 10 mg TID PO Last administered on 08/13/18 08:53; Admin Dose 10 MG; Start 07/06/18 at 09:00 Albuterol (Ventolin Hfa) 2 puff Q4 INH Last administered on 08/13/18 08:53; Admin Dose 2 PUFF; Start 07/06/18 at 04:30 Rifaximin (Xifaxan) 200 mg TID PO Last administered on 08/13/18 08:53; Admin Dose 200 MG; Start 07/09/18 at 21:00 Acetaminophen/ Hydrocodone Bitart ([place] (5/325)) 1 tab Q6H PRN PO MODERATE PAIN LEVEL 4-6 Last administered on 08/08/18 06:18; Admin Dose 1 TAB; Start 07/14/18 at 17:30 Sodium Hypochlorite (Dakin'S (Dilute )) 1 applic DAILY IRR Last administered on 08/13/18 08:53; Admin Dose 1 APPLIC; Start 07/15/18 at 23:45 Simethicone (Mylicon) 80 mg Q6H PRN PO DISTENSION/GAS/BLOATING Last administered on 08/12/18 22:53; Admin Dose 80 MG; Start 07/16/18 at 15:30 Lactulose (Enulose) 10 gm DAILY PO Last administered on 08/13/18 08:53; Admin Dose 10 GM; Start 07/19/18 at 09:00 Diphenhydramine HCl (Benadryl) 25 mg Q8H PRN IV PRURITUS/ITCHING Last administered on 08/04/18 07:15; Admin Dose 25 MG; Start 07/20/18 at 18:30 Morphine Sulfate (morphine) 6 mg Q4H PRN PO SEVERE PAIN LEVEL 7-10 Last administered on 08/05/18 05:23; Admin Dose 6 MG; Start 07/20/18 at 23:30 Trazodone HCl (Desyrel) 50 mg HS PRN PO insomnia Last administered on 08/12/18 21:11; Admin Dose 50 MG; Start 07/21/18 at 23:30 Nystatin (Nystatin Powder) 1 applic BID TOP Last administered on 08/13/18 08:59; Admin Dose 1 APPLIC; Start 07/25/18 at 21:00 Nystatin (Nystatin Oint) 1 applic TID TOP Last administered on 08/13/18 08:59; Admin Dose 1 APPLIC; Start 07/27/18 at 21:00 Hydromorphone HCl (Dilaudid) 1 mg Q3H PRN IV SEVERE PAIN LEVEL 7-10 Last administered on 08/13/18 08:52; Admin Dose 1 MG; Start 07/30/18 at 13:00 Ondansetron HCl (Zofran Odt) 8 mg Q6H PRN ODT NAUSEA AND/OR VOMITING Last administered on 08/13/18 02:14; Admin Dose 8 MG; Start 08/09/18 at 16:00 Spironolactone (Aldactone) 100 mg BID DIURETICS PO Last administered on 08/13/18 06:18; Admin Dose 100 MG; Start 08/11/18 at 06:00 LOUIE RUIZ MD Aug 13, 2018 09:04
--- NOTE | 2018-08-13 12:08 | CONS ---
Assessment/Plan Assessment/Plan Hospital Course (Demo Recall) Interval HX- no acute events overnight, tolerating diet well 1. Alcoholic Cirrhosis of liver. -on transplant list at [facility] -AFP wnl 2. Anemia of chronic disease. 3. Pancytopenia secondary to #1 4. 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 5. Cellulitis, status post skin graft and wound VAC. -K. pneumoniae and coagulase neg staph in wound -followed by podiatry 6. Clostridium difficile colitis. -resolved 7. SBP -resolved, treatment complete 8. S/P colonoscopy 08/04 found diverticulosis and external hemorrhoids 9. S/P EGD 08/04 shows congestive gastropathy, esophageal varices 10. Anasarca -on aldactone 50 mg BID PO US of abd 08/01: 1. Coarse nodular liver consistent with cirrhosis. No focal hepatic masses. 2. Status post cholecystectomy. No biliary duct dilatation. 3. Patent portal vein with pulsatile hepatopetal flow. 4. Suspect portal hypertension as demonstrated by moderate ascites. 5. Moderate size right pleural effusion as well. 6. Increased right renal cortical echogenicity suggest medical renal disease PLAN: Continue Aldactone 100 mg p.o. twice daily Salt restriction with fluid restriction Continue present care Paracentesis as needed Monitor for GI bleeding High fiber diet Podiatry following, plan for skin graft Consultation Date/Type/Reason Admit Date/Time Jul 04, 2018 at 14:22 Initial Consult Date 07/07/18 Requesting Provider: ANA SPICER Date/Time of Note DATE: 08/13/18 TIME: 12:06 Exam/Review of Systems Exam Vitals Vital Signs Date Temp Pulse Resp B/P (MAP) Pulse Ox O2 O2 Flow FiO2 Time Delivery Rate 08/13/18 98.1 84 17 92/51 (65) 96 Room Air 08:02 Intake and Output 08/12/18 08/12/18 08/13/18 1515:00 23:00 07:00 IntakeIntake Total 500 ml 200 ml 240 ml BalanceBalance 500 ml 200 ml 240 ml Constitutional: alert, oriented Psych: no complaints Head: normocephalic Neck: supple Respiratory: clear to auscultation Cardiovascular: regular rate and rhythm, nl pulses Gastrointestinal: soft, non-tender Musculoskeletal: nl extremities to inspection, other (Dressing to LLE) Extremities: normal pulses 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: TIMBER PACKER II-XII intact Results Result Diagram: 3/9/19 0525 08/13/18 0525 Results 24hrs Laboratory Tests Test 08/13/18 05:25 White Blood Count 4.0 L Red Blood Count 2.55 L Hemoglobin 8.6 L Hematocrit 26.6 L Mean Corpuscular Volume 104.3 H Mean Corpuscular Hemoglobin 33.7 H Mean Corpuscular Hemoglobin Concent 32.3 Red Cell Distribution Width 17.7 H Platelet Count 49 L Mean Platelet Volume 10.9 H Immature Granulocytes % 0.500 H Neutrophils % 48.4 Lymphocytes % 31.6 Monocytes % 15.0 H Eosinophils % 4.0 Basophils % 0.5 Nucleated Red Blood Cells % 0.0 Immature Granulocytes # 0.020 Neutrophils # 1.9 Lymphocytes # 1.3 Monocytes # 0.6 Eosinophils # 0.2 Basophils # 0.0 Nucleated Red Blood Cells # 0.0 Sodium Level 134 L Potassium Level 4.3 Chloride Level 102 Carbon Dioxide Level 28 Anion Gap 4 L Blood Urea Nitrogen 4 L Creatinine 0.52 Est Glomerular Filtrat Rate mL/min > 60 Glucose Level 81 Calcium Level 7.6 L Total Bilirubin 4.2 H Direct Bilirubin 0.20 Indirect Bilirubin 4.0 H Aspartate Amino Transf (AST/SGOT) 60 H Alanine Aminotransferase (ALT/SGPT) 45 Alkaline Phosphatase 140 H Total Protein 5.1 L Albumin 2.1 L Globulin 3.00 Albumin/Globulin Ratio 0.70 Medications Medication Current Medications IV Flush (NS 3 ml) 3 ml PER PROTOCOL IV Last administered on 07/26/18at 20:08; Admin Dose 3 ML; Start 07/04/18 at 18:30 Docusate Sodium (Colace) 100 mg Q12H PRN PO .CONSTIPATION; Start 07/04/18 at 18:30 Albuterol (Proventil 0.083% (Neb)) 2.5 mg Q4H RESP THERAPY PRN HHN SHORTNESS OF BREATH; Start 07/04/18 at 18:30 Metoclopramide HCl (Reglan) 5 mg Q6H PRN IV NAUSEA Last administered on 08/13/18at 06:23; Admin Dose 5 MG; Start 07/05/18 at 10:00 Midodrine (Proamatine) 10 mg TID PO Last administered on 08/13/18at 08:53; Admin Dose 10 MG; Start 07/06/18 at 09:00 Albuterol (Ventolin Hfa) 2 puff Q4 INH Last administered on 08/13/18 08:53; Admin Dose 2 PUFF; Start 07/06/18 at 04:30 Rifaximin (Xifaxan) 200 mg TID PO Last administered on 08/13/18 08:53; Admin Dose 200 MG; Start 07/09/18 at 21:00 Acetaminophen/ Hydrocodone Bitart ([place] (5/325)) 1 tab Q6H PRN PO MODERATE PAIN LEVEL 4-6 Last administered on 08/08/18 06:18; Admin Dose 1 TAB; Start 07/14/18 at 17:30 Sodium Hypochlorite (Dakin'S (Dilute )) 1 applic DAILY IRR Last administ ered on 08/13/18 08:53; Admin Dose 1 APPLIC; Start 07/15/18 at 23:45 Simethicone (Mylicon) 80 mg Q6H PRN PO DISTENSION/GAS/BLOATING Last administered on 08/12/18 22:53; Admin Dose 80 MG; Start 07/16/18 at 15:30 Lactulose (Enulose) 10 gm DAILY PO Last administered on 08/13/18 08:53; Admin Dose 10 GM; Start 07/19/18 at 09:00 Diphenhydramine HCl (Benadryl) 25 mg Q8H PRN IV PRURITUS/ITCHING Last admi nistered on 08/04/18 07:15; Admin Dose 25 MG; Start 07/20/18 at 18:30 Morphine Sulfate (morphine) 6 mg Q4H PRN PO SEVERE PAIN LEVEL 7-10 Last administered on 08/05/18 05:23; Admin Dose 6 MG; Start 07/20/18 at 23:30 Trazodone HCl (Desyrel) 50 mg HS PRN PO insomnia Last administered on 08/12/18 21:11; Admin Dose 50 MG; Start 07/21/18 at 23:30 Nystatin (Nystatin Powder) 1 applic BID TOP Last administered on 08/13/18 08:59; Admin Dose 1 APPLIC; Start 07/25/18 at 21:00 Nystatin (Nystatin Oint) 1 applic TID TOP Last administered on 08/13/18 08:59; Admin Dose 1 APPLIC; Start 07/27/18 at 21:00 Hydromorphone HCl (Dilaudid) 1 mg Q3H PRN IV SEVERE PAIN LEVEL 7-10 Last administered on 08/13/18at 08:52; Admin Dose 1 MG; Start 07/30/18 at 13:00 Ondansetron HCl (Zofran Odt) 8 mg Q6H PRN ODT NAUSEA AND/OR VOMITING Last administered on 08/13/18at 02:14; Admin Dose 8 MG; Start 08/09/18 at 16:00 Spironolactone (Aldactone) 100 mg BID DIURETICS PO Last administered on 08/13/18at 06:18; Admin Dose 100 MG; Start 08/11/18 at 06:00 CATARINO JONES NP Aug 13, 2018 12:08
[2018-08-13 14:00] VITALS: BP 101/56; PULSE 79; RESP 17
--- NOTE | 2018-08-13 18:30 | CONS ---
Assessment/Plan Assessment/Plan Assessment/Plan (Daily) 1. Left foot abscess with tissue necrosis, left foot. s/p excisional debridement, skin allograft and application of wound VAC (DOS: 07/27/18) 2. Cellulitis, left lower extremity. 3. Sepsis with Klebsiella pneumoniae bacteremia. 4. Clostridium difficile colitis. 5. Alcoholic liver cirrhosis with recurrent ascites. 6. Anemia and thrombocytopenia. Plan Nails were debrided x10 with nail nipper. Patient will benefit from split thickness skin graft and planned for Wednesday08/16/18. Continue with wound VAC therapy and change dressings every 3 days. Previous cultures showing klebsiel pna and coag staph (-). IntraOp pathology showing necrotic tissue no malignancy. Continue with IV abx as recommended. Offload heels with pillows. Patient states she has a hospital cna and GI specialist that she follows up. She reports that she is on the list for a liver transplant. Recommend patient to have home VAC and continued VAC dressing changes upon discharge. Patient to [facility] in [facility] in 1 week from discharge date. Consultation Date/Type/Reason Admit Date/Time Jul 04, 2018 at 14:22 Initial Consult Date 07/07/18 Requesting Provider: ANA SPICER Date/Time of Note DATE: 08/13/18 TIME: 18:30 24 HR Interval Summary Free Text/Dictation No acute events overnight. Exam/Review of Systems Exam Vitals Vital Signs Date Temp Pulse Resp B/P (MAP) Pulse Ox O2 O2 Flow FiO2 Time Delivery Rate 08/13/18 98.0 79 17 101/56 98 Room Air 14:00 (71) Intake and Output 08/12/18 08/12/18 08/13/18 1515:00 23:00 07:00 IntakeIntake Total 500 ml 200 ml 240 ml BalanceBalance 500 ml 200 ml 240 ml Exam wound vac dressings clean dry and intact with serosanguinous drainage noted to the canister. No leaks or strikethrough drainage to the dressings. Nails elongated and thickened. Results Result Diagram: 08/13/18 0525 08/13/18 0525 Results 24hrs Laboratory Tests Test 08/13/18 05:25 White Blood Count 4.0 L Red Blood Count 2.55 L Hemoglobin 8.6 L Hematocrit 26.6 L Mean Corpuscular Volume 104.3 H Mean Corpuscular Hemoglobin 33.7 H Mean Corpuscular Hemoglobin Concent 32.3 Red Cell Distribution Width 17.7 H Platelet Count 49 L Mean Platelet Volume 10.9 H Immature Granulocytes % 0.500 H Neutrophils % 48.4 Lymphocytes % 31.6 Monocytes % 15.0 H Eosinophils % 4.0 Basophils % 0.5 Nucleated Red Blood Cells % 0.0 Immature Granulocytes # 0.020 Neutrophils # 1.9 Lymphocytes # 1.3 Monocytes # 0.6 Eosinophils # 0.2 Basophils # 0.0 Nucleated Red Blood Cells # 0.0 Sodium Level 134 L Potassium Level 4.3 Chloride Level 102 Carbon Dioxide Level 28 Anion Gap 4 L Blood Urea Nitrogen 4 L Creatinine 0.52 Est Glomerular Filtrat Rate mL/min > 60 Glucose Level 81 Calcium Level 7.6 L Total Bilirubin 4.2 H Direct Bilirubin 0.20 Indirect Bilirubin 4.0 H Aspartate Amino Transf (AST/SGOT) 60 H Alanine Aminotransferase (ALT/SGPT) 45 Alkaline Phosphatase 140 H Total Protein 5.1 L Albumin 2.1 L Globulin 3.00 Albumin/Globulin Ratio 0.70 Medications Medication Current Medications IV Flush (NS 3 ml) 3 ml PER PROTOCOL IV Last administered on 07/26/18 20:08; Admin Dose 3 ML; Start 07/04/18 at 18:30 Docusate Sodium (Colace) 100 mg Q12H PRN PO .CONSTIPATION; Start 07/04/18 at 18:30 Albuterol (Proventil 0.083% (Neb)) 2.5 mg Q4H RESP THERAPY PRN HHN SHORTNESS OF BREATH; Start 07/04/18 at 18:30 Metoclopramide HCl (Reglan) 5 mg Q6H PRN IV NAUSEA Last administered on 08/13/18 12:54; Admin Dose 5 MG; Start 07/05/18 at 10:00 Midodrine (Proamatine) 10 mg TID PO Last administered on 08/13/18 12:53; Admin Dose 10 MG; Start 07/06/18 at 09:00 Albuterol (Ventolin Hfa) 2 puff Q4 INH Last administered on 08/13/18 17:54; Admin Dose 2 PUFF; Start 07/06/18 at 04:30 Rifaximin (Xifaxan) 200 mg TID PO Last administered on 08/13/18 12:49; Admin Dose 200 MG; Start 07/09/18 at 21:00 Acetaminophen/ Hydrocodone Bitart ([place] (5/325)) 1 tab Q6H PRN PO MODERATE PAIN LEVEL 4-6 Last administered on 08/08/18 06:18; Admin Dose 1 TAB; Start 07/14/18 at 17:30 Sodium Hypochlorite (Dakin'S (Dilute )) 1 applic DAILY IRR Last administered on 08/13/18 08:53; Admin Dose 1 APPLIC; Start 07/15/18 at 23:45 Simethicone (Mylicon) 80 mg Q6H PRN PO DISTENSION/GAS/BLOATING Last admini stered on 08/13/18 16:34; Admin Dose 80 MG; Start 07/16/18 at 15:30 Lactulose (Enulose) 10 gm DAILY PO Last administered on 08/13/18 08:53; Admin Dose 10 GM; Start 07/19/18 at 09:00 Diphenhydramine HCl (Benadryl) 25 mg Q8H PRN IV PRURITUS/ITCHING Last administered on 08/04/18 07:15; Admin Dose 25 MG; Start 07/20/18 at 18:30 Morphine Sulfate (morphine) 6 mg Q4H PRN PO SEVERE PAIN LEVEL 7-10 Last administered on 08/05/18 05:23; Admin Dose 6 MG; Start 07/20/18 at 23:30 Trazodone HCl (Desyrel) 50 mg HS PRN PO insomnia Last administered on 08/12/18 21:11; Admin Dose 50 MG; Start 07/21/18 at 23:30 Nystatin (Nystatin Powder) 1 applic BID TOP Last administered on 08/13/18 08:59; Admin Dose 1 APPLIC; Start 07/25/18 at 21:00 Nystatin (Nystatin Oint) 1 applic TID TOP Last administered on 08/13/18 13:03; Admin Dose 1 APPLIC; Start 07/27/18 at 21:00 Hydromorphone HCl (Dilaudid) 1 mg Q3H PRN IV SEVERE PAIN LEVEL 7-10 Last administered on 08/13/18 16:32; Admin Dose 1 MG; Start 07/30/18 at 13:00 Ondansetron HCl (Zofran Odt) 8 mg Q6H PRN ODT NAUSEA AND/OR VOMITING Last administered on 08/13/18 16:32; Admin Dose 8 MG; Start 08/09/18 at 16:00 Spironolactone (Aldactone) 100 mg BID DIURETICS PO Last administered on 08/13/18 17:54; Admin Dose 100 MG; Start 08/11/18 at 06:00 JEANINE SAWYER DPM Aug 13, 2018 18:30
[2018-08-13 20:00] VITALS: BP 107/55; PULSE 83; RESP 18
[2018-08-13] MEDS: traZODone 50 MG TAB PO PRN (20:57)
[2018-08-14] MEDS: HYDROmorphONE 1 MG/ML SYG IV PRN ×7 (00:21→21:49)
[2018-08-14] MEDS: ONDANSETRON (ODT) 4 MG TAB ODT PRN ×4 (00:26→21:49)
[2018-08-14] MEDS: DOCUSATE SODIUM 100 MG CAP PO PRN ×2 (00:38→21:49)
[2018-08-14] MEDS: ALBUTEROL HFA 8 GM INHALER INH SCH ×6 (01:06→20:49)
[2018-08-14 02:00] VITALS: BP 95/61; PULSE 85; RESP 18
[2018-08-14] MEDS: METOCLOPRAMIDE 10 MG INJ IV PRN ×3 (05:28→18:46)
[2018-08-14] MEDS: SPIRONOLACTONE 50 MG TAB PO SCH ×2 (05:28→17:35)
[2018-08-14 07:54] VITALS: BP 93/48; PULSE 83; RESP 16
[2018-08-14] MEDS: LACTULOSE 30ML CUP PO SCH (08:23)
[2018-08-14] MEDS: MIDODRINE 5 MG TAB PO SCH ×3 (08:23→20:37)
[2018-08-14] MEDS: RIFAXIMIN 200 MG TAB PO SCH ×3 (08:24→20:37)
[2018-08-14] MEDS: SODIUM HYPOCHLORITE (1/40) 1 APPLIC BTL IRR SCH (09:00)
--- NOTE | 2018-08-14 09:03 | PN ---
Date/Time of Note Date/Time of Note DATE: 08/14/18 TIME: 09:03 Assessment/Plan VTE Prophylaxis Risk score (from Ns)>0 risk: 6 SCD applied (from Ns): Yes Pharmacological prophylaxis: NA/contraindicated Pharm contraindication: thrombocytopenia Lines/Catheters IV [facility] Mid Line Urinary Cath still in place: No Assessment/Plan Assessment/Plan 1. Left foot wound s/p debridement with wound VAC- stable - Podiatry on board and appreciate recommendations. Plans for skin graft on Wednesday 08/16 - s/p skin allograft and wound vac placement 07/27/18 - MRI foot shows no evidence of OM - Completed course of antibiotics 2. SBP with klebsiella bacteremia: - finished course of antibiotics - last culture from paracentesis negative 3. Cirrhosis with ascites - Status post paracentesis x 6. Requesting therapeutic tap tomorrow - Continue current increased dose of Aldactone 100mg BID. Will hold off on Lasix given low BP - Continue rifaximin/lactulose - has follow up with Dr. Gómez as outpatient, liver transplant preop EGD and c olonoscopy shows nonbleeding varices and diverticulosis 4. Anemia - most likely 2/2 liver dz 5. Acute kidney injury likely secondary to hemodynamics and intravascular volume depletion-resolved - Nephrology consultation appreciated 6. Anemia of chronic disease - stable 7. C Diff diarrhea - s/p PO vanco course - resolving - repeat ordered but given on Lactulose, lab will not process sample 8. Left breast implant rupture - MRI ordered but patient unable to undergo until can walk - patient has had saline implant in for the past 20 years. Has had issues with it in the past given behind the muscle 9. Disposition - Skin graft planned for wednesday - Therapeutic tap ordered for wednesday - Pending SNF placement Result Diagram: 08/13/18 0525 08/14/18 0448 Results 24hrs Laboratory Tests Test 08/14/18 04:48 Sodium Level 136 Potassium Level 4.1 Chloride Level 103 Carbon Dioxide Level 27 Anion Gap 6 Blood Urea Nitrogen 4 L Creatinine 0.50 Est Glomerular Filtrat Rate mL/min > 60 Glucose Level 96 Calcium Level 7.7 L Total Bilirubin 4.6 H Direct Bilirubin 0.20 Indirect Bilirubin 4.4 H Aspartate Amino Transf (AST/SGOT) 43 Alanine Aminotransferase (ALT/SGPT) 35 Alkaline Phosphatase 114 Total Protein 4.9 L Albumin 2.0 L Globulin 2.90 Albumin/Globulin Ratio 0.68 Subjective 24 Hr Interval Summary Free Text/Dictation Patient doing well but still with left breast discomfort. Discussed US findings of ruptured breast implant she states has been in place for 20+ years. Complaining of abdominal distension and requesting paracentesis tomorrow. Exam/Review of Systems Exam Vitals Vital Signs Date Temp Pulse Resp B/P (MAP) Pulse Ox O2 O2 Flow FiO2 Time Delivery Rate 08/14/18 98.4 83 16 93/48 (63) 98 07:54 08/13/18 Room Air 14:00 Intake and Output 08/13/18 08/13/18 08/14/18 1515:00 23:00 07:00 IntakeIntake Total 600 ml 240 ml OutputOutput Total 900 ml 3200 ml BalanceBalance -300 ml -2960 ml Exam General: Patient is laying in bed, no acute distress HEENT: mild scleral icterus Chest: mild tenderness to palpation left breast, no masses appreciated Lungs: clear to auscultation bilaterally. no wheezing or rhonchi CVS: S1, S2, regular rate and rhythm, no obvious murmurs GI: soft but firming up on L quadrant, non-tender to palpation, distension, +fluid shift, bowel sounds heard. Ext: swelling LE b/l. pitting LLE L>R Skin: No new skin lesions Results Results 24hrs Laboratory Tests Test 08/14/18 04:48 Sodium Level 136 Potassium Level 4.1 Chloride Level 103 Carbon Dioxide Level 27 Anion Gap 6 Blood Urea Nitrogen 4 L Creatinine 0.50 Est Glomerular Filtrat Rate mL/min > 60 Glucose Level 96 Calcium Level 7.7 L Total Bilirubin 4.6 H Direct Bilirubin 0.20 Indirect Bilirubin 4.4 H Aspartate Amino Transf (AST/SGOT) 43 Alanine Aminotransferase (ALT/SGPT) 35 Alkaline Phosphatase 114 Total Protein 4.9 L Albumin 2.0 L Globulin 2.90 Albumin/Globulin Ratio 0.68 Medications Medication Current Medications IV Flush (NS 3 ml) 3 ml PER PROTOCOL IV Last administered on 07/26/18at 20:08; Admin Dose 3 ML; Start 07/04/18 at 18:30 Docusate Sodium (Colace) 100 mg Q12H PRN PO .CONSTIPATION Last administered on 08/14/18at 00:38; Admin Dose 100 MG; Start 07/04/18 at 18:30 Albuterol (Proventil 0.083% (Neb)) 2.5 mg Q4H RESP THERAPY PRN HHN SHORTNESS OF BREATH; Start 07/04/18 at 18:30 Metoclopramide HCl (Reglan) 5 mg Q6H PRN IV NAUSEA Last administered on 08/14/18 05:28; Admin Dose 5 MG; Start 07/05/18 at 10:00 Midodrine (Proamatine) 10 mg TID PO Last administered on 08/14/18 08:23; Admin Dose 10 MG; Start 07/06/18 at 09:00 Albuterol (Ventolin Hfa) 2 puff Q4 INH Last administered on 08/14/18 08:23; Admin Dose 2 PUFF; Start 07/06/18 at 04:30 Rifaximin (Xifaxan) 200 mg TID PO Last administered on 08/14/18 08:24; Admin Dose 200 MG; Start 07/09/18 at 21:00 Acetaminophen/ Hydrocodone Bitart ([place] (5/325)) 1 tab Q6H PRN PO MODERATE PAIN LEVEL 4-6 Last administered on 08/08/18 06:18; Admin Dose 1 TAB; Start 07/14/18 at 17:30 Sodium Hypochlorite (Dakin'S (Dilute 40)) 1 applic DAILY IRR Last administered on 08/13/18 08:53; Admin Dose 1 APPLIC; Start 07/15/18 at 23:45 Simethicone (Mylicon) 80 mg Q6H PRN PO DISTENSION/GAS/BLOATING Last administered on 08/14/18 05:28; Admin Dose 80 MG; Start 07/16/18 at 15:30 Lactulose (Enulose) 10 gm DAILY PO Last administered on 08/14/18 08:23; Admin Dose 10 GM; Start 07/19/18 at 09:00 Diphenhydramine HCl (Benadryl) 25 mg Q8H PRN IV PRURITUS/ITCHING Last administered on 08/04/18 07:15; Admin Dose 25 MG; Start 07/20/18 at 18:30 Morphine Sulfate (morphine) 6 mg Q4H PRN PO SEVERE PAIN LEVEL 7-10 Last administered on 08/05/18 05:23; Admin Dose 6 MG; Start 07/20/18 at 23:30 Trazodone HCl (Desyrel) 50 mg HS PRN PO insomnia Last administered on 08/13/18 20:57; Admin Dose 50 MG; Start 07/21/18 at 23:30 Nystatin (Nystatin Powder) 1 applic BID TOP Last administered on 08/13/18 21:00; Admin Dose 1 APPLIC; Start 07/25/18 at 21:00 Nystatin (Nystatin Oint) 1 applic TID TOP Last administered on 08/13/18 20:59; Admin Dose 1 APPLIC; Start 07/27/18 at 21:00 Hydromorphone HCl (Dilaudid) 1 mg Q3H PRN IV SEVERE PAIN LEVEL 7-10 Last administered on 08/14/18 08:35; Admin Dose 1 MG; Start 07/30/18 at 13:00 Ondansetron HCl (Zofran Odt) 8 mg Q6H PRN ODT NAUSEA AND/OR VOMITING Last administered on 08/14/18 08:35; Admin Dose 8 MG; Start 08/09/18 at 16:00 Spironolactone (Aldactone) 100 mg BID DIURETICS PO Last administered on 08/14/18 05:28; Admin Dose 100 MG; Start 08/11/18 at 06:00 LOUIE RUIZ MD Aug 14, 2018 09:03
--- NOTE | 2018-08-14 12:00 | CONS ---
Assessment/Plan Assessment/Plan Hospital Course (Demo Recall) Interval HX- no acute events overnight, tolerating diet well 1. Alcoholic Cirrhosis of liver. -on transplant list at [facility] -AFP wnl 2. Anemia of chronic disease. 3. Pancytopenia secondary to #1 4. 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 5. Cellulitis, status post skin graft and wound VAC. -K. pneumoniae and coagulase neg staph in wound -followed by podiatry 6. Clostridium difficile colitis. -resolved 7. SBP -resolved, treatment complete 8. S/P colonoscopy 08/04 found diverticulosis and external hemorrhoids 9. S/P EGD 08/04 shows congestive gastropathy, esophageal varices 10. Anasarca -on aldactone 50 mg BID PO US of abd 08/01: 1. Coarse nodular liver consistent with cirrhosis. No focal hepatic masses. 2. Status post cholecystectomy. No biliary duct dilatation. 3. Patent portal vein with pulsatile hepatopetal flow. 4. Suspect portal hypertension as demonstrated by moderate ascites. 5. Moderate size right pleural effusion as well. 6. Increased right renal cortical echogenicity suggest medical renal disease PLAN: Continue Aldactone 100 mg p.o. twice daily Salt restriction with fluid restriction Continue present care Paracentesis as needed Monitor for GI bleeding High fiber diet Podiatry following, plan for skin graft Consultation Date/Type/Reason Admit Date/Time Jul 04, 2018 at 14:22 Initial Consult Date 07/07/18 Requesting Provider: ANA SPICER Date/Time of Note DATE: 08/14/18 TIME: 11:58 Exam/Review of Systems Exam Vitals Vital Signs Date Temp Pulse Resp B/P (MAP) Pulse Ox O2 O2 Flow FiO2 Time Delivery Rate 08/14/18 98.4 83 16 93/48 (63) 98 07:54 08/13/18 Room Air 14:00 Intake and Output 08/13/18 08/13/18 08/14/18 1515:00 23:00 07:00 IntakeIntake Total 600 ml 240 ml OutputOutput Total 900 ml 3200 ml BalanceBalance -300 ml -2960 ml Constitutional: alert, oriented Psych: no complaints Head: normocephalic, atraumatic Eyes: nl conjunctiva ENMT: nl external ears & nose Neck: supple Respiratory: clear to auscultation Cardiovascular: regular rate and rhythm Gastrointestinal: soft Musculoskeletal: nl extremities to inspection (Dressing to LLE) Extremities: normal pulses 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: CONVEYOR ATTENDANT II-XII intact Results Result Diagram: 08/13/18 0525 08/14/18 0448 Results 24hrs Laboratory Tests Test 08/14/18 04:48 Sodium Level 136 Potassium Level 4.1 Chloride Level 103 Carbon Dioxide Level 27 Anion Gap 6 Blood Urea Nitrogen 4 L Creatinine 0.50 Est Glomerular Filtrat Rate mL/min > 60 Glucose Level 96 Calcium Level 7.7 L Total Bilirubin 4.6 H Direct Bilirubin 0.20 Indirect Bilirubin 4.4 H Aspartate Amino Transf (AST/SGOT) 43 Alanine Aminotransferase (ALT/SGPT) 35 Alkaline Phosphatase 114 Total Protein 4.9 L Albumin 2.0 L Globulin 2.90 Albumin/Globulin Ratio 0.68 Medications Medication Current Medications IV Flush (NS 3 ml) 3 ml PER PROTOCOL IV Last administered on 07/26/18 20:08; Admin Dose 3 ML; Start 07/04/18 at 18:30 Docusate Sodium (Colace) 100 mg Q12H PRN PO .CONSTIPATION Last administered on 08/14/18at 00:38; Admin Dose 100 MG; Start 07/04/18 at 18:30 Albuterol (Proventil 0.083% (Neb)) 2.5 mg Q4H RESP THERAPY PRN HHN SHORTNESS OF BREATH; Start 07/04/18 at 18:30 Metoclopramide HCl (Reglan) 5 mg Q6H PRN IV NAUSEA Last administered on 08/14/18 11:36; Admin Dose 5 MG; Start 07/05/18 at 10:00 Midodrine (Proamatine) 10 mg TID PO Last administered on 08/14/18 08:23; Admin Dose 10 MG; Start 07/06/18 at 09:00 Albuterol (Ventolin Hfa) 2 puff Q4 INH Last administered on 08/14/18 08:23; Admin Dose 2 PUFF; Start 07/06/18 at 04:30 Rifaximin (Xifaxan) 200 mg TID PO Last administered on 08/14/18 08:24; Admin Dose 200 MG; Start 07/09/18 at 21:00 Acetaminophen/ Hydrocodone Bitart ([place] (5/325)) 1 tab Q6H PRN PO MODERATE PAIN LEVEL 4-6 Last administered on 08/08/18 06:18; Admin Dose 1 TAB; Start 07/14/18 at 17:30 Sodium Hypochlorite (Dakin'S (Dilute )) 1 applic DAILY IRR Last administered on 08/13/18 08:53; Admin Dose 1 APPLIC; Start 07/15/18 at 23:45 Simethicone (Mylicon) 80 mg Q6H PRN PO DISTENSION/GAS/BLOATING Last administered on 08/14/18 05:28; Admin Dose 80 MG; Start 07/16/18 at 15:30 Lactulose (Enulose) 10 gm DAILY PO Last administered on 08/14/18 08:23; Admin Dose 10 GM; Start 07/19/18 at 09:00 Diphenhydramine HCl (Benadryl) 25 mg Q8H PRN IV PRURITUS/ITCHING Last administered on 08/04/18 07:15; Admin Dose 25 MG; Start 07/20/18 at 18:30 Morphine Sulfate (morphine) 6 mg Q4H PRN PO SEVERE PAIN LEVEL 7-10 Last administered on 08/05/18 05:23; Admin Dose 6 MG; Start 07/20/18 at 23:30 Nystatin (Nystatin Powder) 1 applic BID TOP Last administered on 08/13/18 21:00; Admin Dose 1 APPLIC; Start 07/25/18 at 21:00 Nystatin (Nystatin Oint) 1 applic TID TOP Last administered on 08/13/18 20:59; Admin Dose 1 APPLIC; Start 07/27/18 at 21:00 Hydromorphone HCl (Dilaudid) 1 mg Q3H PRN IV SEVERE PAIN LEVEL 7-10 Last administered on 08/14/18 11:35; Admin Dose 1 MG; Start 07/30/18 at 13:00 Ondansetron HCl (Zofran Odt) 8 mg Q6H PRN ODT NAUSEA AND/OR VOMITING Last administered on 08/14/18 08:35; Admin Dose 8 MG; Start 08/09/18 at 16:00 Spironolactone (Aldactone) 100 mg BID DIURETICS PO Last administered on 08/14/18 05:28; Admin Dose 100 MG; Start 08/11/18 at 06:00 Trazodone HCl (Desyrel) 100 mg HS PRN PO insomnia; Start 08/14/18 at 12:00 CATARINO JONES NP Aug 14, 2018 12:00
[2018-08-14] MEDS: NYSTATIN 15 GM OINT TOP SCH ×3 (13:00→20:38)
[2018-08-14 13:50] VITALS: BP 95/59; PULSE 82; RESP 16
[2018-08-14] MEDS: NYSTATIN 30 GM POWDER BTL TOP SCH ×2 (14:39→20:38)
[2018-08-14 21:35] VITALS: BP 97/50; RESP 18
[2018-08-14] MEDS: traZODone 100 MG TAB PO PRN (22:50)
[2018-08-15] VITALS (8 sets, daily range): BP systolic 92–102; BP diastolic 40–54; PULSE 74–85; RESP 16–18
[2018-08-15] MEDS: ALBUTEROL HFA 8 GM INHALER INH SCH ×6 (00:59→21:29)
[2018-08-15] MEDS: METOCLOPRAMIDE 10 MG INJ IV PRN ×4 (02:10→23:00)
[2018-08-15] MEDS: HYDROmorphONE 1 MG/ML SYG IV PRN ×7 (02:10→23:00)
[2018-08-15] MEDS: SPIRONOLACTONE 50 MG TAB PO SCH ×2 (05:16→17:26)
[2018-08-15] MEDS: ONDANSETRON (ODT) 4 MG TAB ODT PRN ×3 (05:17→18:42)
[2018-08-15] MEDS: LACTULOSE 30ML CUP PO SCH (08:22)
[2018-08-15] MEDS: RIFAXIMIN 200 MG TAB PO SCH ×3 (08:23→21:29)
[2018-08-15] MEDS: SODIUM HYPOCHLORITE (1/40) 1 APPLIC BTL IRR SCH (08:28)
[2018-08-15] MEDS: NYSTATIN 30 GM POWDER BTL TOP SCH ×2 (08:28→21:00)
[2018-08-15] MEDS: NYSTATIN 15 GM OINT TOP SCH ×3 (08:29→21:00)
[2018-08-15] MEDS: MIDODRINE 5 MG TAB PO SCH ×3 (08:30→21:28)
[2018-08-15] MEDS ORDERED: LIDOCAINE 1% (MPF) 5 ML VIAL ONE (09:46)
--- NOTE | 2018-08-15 12:44 | CONS ---
Assessment/Plan Assessment/Plan Hospital Course (Demo Recall) Patient is alert looks comfortable denies pain no fevers overnight. Microbiology: Blood culture on admission grew Klebsiella pneumonia on July 04 susceptible to Cipro and Levaquin, stool for C. difficile positive, urine culture negative MRSA swab negative, L foot wound culture grew Klebsiella pneumoniae susceptible to ming quinolones and staph species. Repeat left foot wound culture growing coag negative staph species Physical examination: Chronically ill-appearing middle-aged woman who is in no distress. Head atraumatic normocephalic sclera nonicteric vehicle mucosa dry neck is supple chest rise symmetrical breath sounds diminished at bases. Heart: S1-S2. Abdomen soft bowel sounds present extremities with bilateral edema, left lower extremity dressing intact Assessment: 1. S/p sepsis with Klebsiella pneumonia bacteremia likely secondary to SBP vs #2 2. Left lower extremity abscess/ cellulitis==> neg OM, s/p i/d 07/18/18 with wound vac 3. C. difficile colitis==> treated 4. Alcoholic liver cirrhosis==> on tx list at [facility] 5. Recurrent ascites 6. Anemia and thrombocytopenia Plan: Remains stable plan for skin graft tentatively tomorrow, will start levofloxacin to cover staph species Consultation Date/Type/Reason Admit Date/Time Jul 04, 2018 at 14:22 Initial Consult Date 07/07/18 Type of Consult id Requesting Provider: ANA SPICER Date/Time of Note DATE: 08/15/18 TIME: 12:43 Exam/Review of Systems Exam Vitals Vital Signs Date Temp Pulse Resp B/P (MAP) Pulse Ox O2 O2 Flow FiO2 Time Delivery Rate 08/15/18 75 99/50 (66) 12:35 08/15/18 18 97 Room Air 09:50 08/15/18 98.0 09:00 Intake and Output 08/14/18 08/14/18 08/15/18 1414:59 22:59 06:59 IntakeIntake Total 540 ml 240 ml 360 ml BalanceBalance 540 ml 240 ml 360 ml Results Result Diagram: 08/15/18 0449 08/15/18 0449 Results 24hrs Laboratory Tests Test 08/15/18 04:49 White Blood Count 4.1 L Red Blood Count 2.42 L Hemoglobin 8.0 L Hematocrit 24.8 L Mean Corpuscular Volume 102.5 H Mean Corpuscular Hemoglobin 33.1 H Mean Corpuscular Hemoglobin Concent 32.3 Red Cell Distribution Width 17.4 H Platelet Count 52 L Mean Platelet Volume 10.7 H Immature Granulocytes % 0.500 H Neutrophils % 48.9 Lymphocytes % 31.3 Monocytes % 16.1 H Eosinophils % 2.7 Basophils % 0.5 Nucleated Red Blood Cells % 0.0 Immature Granulocytes # 0.020 Neutrophils # 2.0 Lymphocytes # 1.3 Monocytes # 0.7 Eosinophils # 0.1 Basophils # 0.0 Nucleated Red Blood Cells # 0.0 Sodium Level 137 Potassium Level 4.1 Chloride Level 105 Carbon Dioxide Level 26 Anion Gap 6 Blood Urea Nitrogen 5 L Creatinine 0.51 Est Glomerular Filtrat Rate mL/min > 60 Glucose Level 96 Calcium Level 7.8 L Magnesium Level 2.0 Total Bilirubin 4.7 H Direct Bilirubin 0.30 H Indirect Bilirubin 4.4 H Aspartate Amino Transf (AST/SGOT) 40 Alanine Aminotransferase (ALT/SGPT) 33 Alkaline Phosphatase 90 Total Protein 4.3 L Albumin 1.8 L Globulin 2.50 Albumin/Globulin Ratio 0.72 Medications Medication Current Medications IV Flush (NS 3 ml) 3 ml PER PROTOCOL IV Last administered on 07/26/18 20:08; Admin Dose 3 ML; Start 07/04/18 at 18:30 Docusate Sodium (Colace) 100 mg Q12H PRN PO .CONSTIPATION Last administered on 08/14/18 21:49; Admin Dose 100 MG; Start 07/04/18 at 18:30 Albuterol (Proventil 0.083% (Neb)) 2.5 mg Q4H RESP THERAPY PRN HHN SHORTNESS OF BREATH; Start 07/04/18 at 18:30 Metoclopramide HCl (Reglan) 5 mg Q6H PRN IV NAUSEA Last administered on 08/15/18 08:32; Admin Dose 5 MG; Start 07/05/18 at 10:00 Midodrine (Proamatine) 10 mg TID PO Last administered on 08/15/18 12:34; Admin Dose 10 MG; Start 07/06/18 at 09:00 Albuterol (Ventolin Hfa) 2 puff Q4 INH Last administered on 08/15/18 11:39; Admin Dose 2 PUFF; Start 07/06/18 at 04:30 Rifaximin (Xifaxan) 200 mg TID PO Last administered on 08/15/18 12:35; Admin Dose 200 MG; Start 07/09/18 at 21:00 Acetaminophen/ Hydrocodone Bitart ([place] (5/325)) 1 tab Q6H PRN PO MODERATE PAIN LEVEL 4-6 Last administered on 08/08/18 06:18; Admin Dose 1 TAB; Start 07/14/18 at 17:30 Sodium Hypochlorite (Dakin'S (Dilute )) 1 applic DAILY IRR Last administered on 08/15/18 08:28; Admin Dose 1 APPLIC; Start 07/15/18 at 23:45 Simethicone (Mylicon) 80 mg Q6H PRN PO DISTENSION/GAS/BLOATING Last administered on 08/14/18 15:42; Admin Dose 80 MG; Start 07/16/18 at 15:30 Lactulose (Enulose) 10 gm DAILY PO Last administered on 08/15/18 08:22; Admin Dose 10 GM; Start 07/19/18 at 09:00 Diphenhydramine HCl (Benadryl) 25 mg Q8H PRN IV PRURITUS/ITCHING Last administered on 08/04/18 07:15; Admin Dose 25 MG; Start 07/20/18 at 18:30 Morphine Sulfate (morphine) 6 mg Q4H PRN PO SEVERE PAIN LEVEL 7-10 Last administered on 08/05/18 05:23; Admin Dose 6 MG; Start 07/20/18 at 23:30 Nystatin (Nystatin Powder) 1 applic BID TOP Last administered on 08/15/18 08:28; Admin Dose 1 APPLIC; Start 07/25/18 at 21:00 Nystatin (Nystatin Oint) 1 applic TID TOP Last administered on 08/15/18 12:35; Admin Dose 1 APPLIC; Start 07/27/18 at 21:00 Hydromorphone HCl (Dilaudid) 1 mg Q3H PRN IV SEVERE PAIN LEVEL 7-10 Last administered on 08/15/18 11:42; Admin Dose 1 MG; Start 07/30/18 at 13:00 Ondansetron HCl (Zofran Odt) 8 mg Q6H PRN ODT NAUSEA AND/OR VOMITING Last administered on 08/15/18 11:42; Admin Dose 8 MG; Start 08/09/18 at 16:00 Spironolactone (Aldactone) 100 mg BID DIURETICS PO Last administered on 08/15/18at 05:16; Admin Dose 100 MG; Start 08/11/18 at 06:00 Trazodone HCl (Desyrel) 100 mg HS PRN PO insomnia Last administered on 08/14/18at 22:50; Admin Dose 100 MG; Start 08/14/18 at 12:00 EMA MUELLER NP Aug 15, 2018 12:44
--- NOTE | 2018-08-15 16:39 | PN ---
Date/Time of Note Date/Time of Note DATE: 08/15/18 TIME: 16:37 Assessment/Plan VTE Prophylaxis Risk score (from Nsg)>0 risk: 4 Pharmacological prophylaxis: NA/contraindicated Pharm contraindication: liver dx Lines/Catheters IV Catheter Type (from Nrsg): Mid Line Urinary Cath still in place: No Assessment/Plan Hospital Course 1. Left foot wound s/p debridement with wound VAC- stable - Podiatry on board and appreciate recommendations. Plans for skin graft on Wednesday 08/16 - s/p skin allograft and wound vac placement 07/27/18 - MRI foot shows no evidence of OM - Completed course of antibiotics 2. SBP with klebsiella bacteremia: - finished course of antibiotics - last culture from paracentesis negative 3. Cirrhosis with ascites - Status post paracentesis x 7 - Continue current increased dose of Aldactone 100mg BID. Will hold off on Lasix given low BP - Continue rifaximin/lactulose - has follow up with Dr. Gómez as outpatient, liver transplant preop EGD and colonoscopy shows nonbleeding varices and diverticulosis 4. Anemia - most likely 2/2 liver dz 5. Acute kidney injury likely secondary to hemodynamics and intravascular volume depletion-resolved - Nephrology consultation appreciated 6. Anemia of chronic disease - stable 7. C Diff diarrhea - s/p PO vanco course - resolving - repeat ordered but given on Lactulose, lab will not process sample 8. Left breast implant rupture - MRI ordered but patient unable to undergo until can walk - patient has had saline implant in for the past 20 years. Has had issues with it in the past given behind the muscle 9. Disposition - Skin graft planned for wednesday - Therapeutic tap ordered for wednesday - Pending SNF placement Result Diagram: 08/15/18 0449 08/15/18 0449 Results 24hrs Laboratory Tests Test 08/15/18 04:49 White Blood Count 4.1 L Red Blood Count 2.42 L Hemoglobin 8.0 L Hematocrit 24.8 L Mean Corpuscular Volume 102.5 H Mean Corpuscular Hemoglobin 33.1 H Mean Corpuscular Hemoglobin Concent 32.3 Red Cell Distribution Width 17.4 H Platelet Count 52 L Mean Platelet Volume 10.7 H Immature Granulocytes % 0.500 H Neutrophils % 48.9 Lymphocytes % 31.3 Monocytes % 16.1 H Eosinophils % 2.7 Basophils % 0.5 Nucleated Red Blood Cells % 0.0 Immature Granulocytes # 0.020 Neutrophils # 2.0 Lymphocytes # 1.3 Monocytes # 0.7 Eosinophils # 0.1 Basophils # 0.0 Nucleated Red Blood Cells # 0.0 Sodium Level 137 Potassium Level 4.1 Chloride Level 105 Carbon Dioxide Level 26 Anion Gap 6 Blood Urea Nitrogen 5 L Creatinine 0.51 Est Glomerular Filtrat Rate mL/min > 60 Glucose Level 96 Calcium Level 7.8 L Magnesium Level 2.0 Total Bilirubin 4.7 H Direct Bilirubin 0.30 H Indirect Bilirubin 4.4 H Aspartate Amino Transf (AST/SGOT) 40 Alanine Aminotransferase (ALT/SGPT) 33 Alkaline Phosphatase 90 Total Protein 4.3 L Albumin 1.8 L Globulin 2.50 Albumin/Globulin Ratio 0.72 Subjective 24 Hr Interval Summary Constitutional: no complaints Exam/Review of Systems Exam Vitals Vital Signs Date Temp Pulse Resp B/P (MAP) Pulse Ox O2 O2 Flow FiO2 Time Delivery Rate 08/15/18 98.2 74 16 99/49 (66) 97 Room Air 14:32 Intake and Output 08/14/18 08/14/18 08/15/18 1515:00 23:00 07:00 IntakeIntake Total 540 ml 240 ml 360 ml BalanceBalance 540 ml 240 ml 360 ml Constitutional: alert, oriented Respiratory: clear to auscultation Cardiovascular: regular rate and rhythm Gastrointestinal: soft; No distended Musculoskeletal: nl extremities to inspection Results Results 24hrs Laboratory Tests Test 08/15/18 04:49 White Blood Count 4.1 L Red Blood Count 2.42 L Hemoglobin 8.0 L Hematocrit 24.8 L Mean Corpuscular Volume 102.5 H Mean Corpuscular Hemoglobin 33.1 H Mean Corpuscular Hemoglobin Concent 32.3 Red Cell Distribution Width 17.4 H Platelet Count 52 L Mean Platelet Volume 10.7 H Immature Granulocytes % 0.500 H Neutrophils % 48.9 Lymphocytes % 31.3 Monocytes % 16.1 H Eosinophils % 2.7 Basophils % 0.5 Nucleated Red Blood Cells % 0.0 Immature Granulocytes # 0.020 Neutrophils # 2.0 Lymphocytes # 1.3 Monocytes # 0.7 Eosinophils # 0.1 Basophils # 0.0 Nucleated Red Blood Cells # 0.0 Sodium Level 137 Potassium Level 4.1 Chloride Level 105 Carbon Dioxide Level 26 Anion Gap 6 Blood Urea Nitrogen 5 L Creatinine 0.51 Est Glomerular Filtrat Rate mL/min > 60 Glucose Level 96 Calcium Level 7.8 L Magnesium Level 2.0 Total Bilirubin 4.7 H Direct Bilirubin 0.30 H Indirect Bilirubin 4.4 H Aspartate Amino Transf (AST/SGOT) 40 Alanine Aminotransferase (ALT/SGPT) 33 Alkaline Phosphatase 90 Total Protein 4.3 L Albumin 1.8 L Globulin 2.50 Albumin/Globulin Ratio 0.72 Medications Medication Current Medications IV Flush (NS 3 ml) 3 ml PER PROTOCOL IV Last administered on 07/26/18 20:08; Admin Dose 3 ML; Start 07/04/18 at 18:30 Docusate Sodium (Colace) 100 mg Q12H PRN PO .CONSTIPATION Last administered on 08/14/18 21:49; Admin Dose 100 MG; Start 07/04/18 at 18:30 Albuterol (Proventil 0.083% (Neb)) 2.5 mg Q4H RESP THERAPY PRN HHN SHORTNESS OF BREATH; Start 07/04/18 at 18:30 Metoclopramide HCl (Reglan) 5 mg Q6H PRN IV NAUSEA Last administered on 08/15/18 15:09; Admin Dose 5 MG; Start 07/05/18 at 10:00 Midodrine (Proamatine) 10 mg TID PO Last administered on 08/15/18 12:34; Admin Dose 10 MG; Start 07/06/18 at 09:00 Albuterol (Ventolin Hfa) 2 puff Q4 INH Last administered on 08/15/18 15:46; Admin Dose 2 PUFF; Start 07/06/18 at 04:30 Rifaximin (Xifaxan) 200 mg TID PO Last administered on 08/15/18 12:35; Admin Dose 200 MG; Start 07/09/18 at 21:00 Acetaminophen/ Hydrocodone Bitart ([place] (5/325)) 1 tab Q6H PRN PO MODERATE PAIN LEVEL 4-6 Last administered on 08/08/18 06:18; Admin Dose 1 TAB; Start 07/14/18 at 17:30 Sodium Hypochlorite (Dakin'S (Dilute )) 1 applic DAILY IRR Last administered on 08/15/18 08:28; Admin Dose 1 APPLIC; Start 07/15/18 at 23:45 Simethicone (Mylicon) 80 mg Q6H PRN PO DISTENSION/GAS/BLOATING Last admi nistered on 08/15/18 15:08; Admin Dose 80 MG; Start 07/16/18 at 15:30 Lactulose (Enulose) 10 gm DAILY PO Last administered on 08/15/18 08:22; Admin Dose 10 GM; Start 07/19/18 at 09:00 Diphenhydramine HCl (Benadryl) 25 mg Q8H PRN IV PRURITUS/ITCHING Last administered on 08/04/18 07:15; Admin Dose 25 MG; Start 07/20/18 at 18:30 Morphine Sulfate (morphine) 6 mg Q4H PRN PO SEVERE PAIN LEVEL 7-10 Last administered on 08/05/18 05:23; Admin Dose 6 MG; Start 07/20/18 at 23:30 Nystatin (Nystatin Powder) 1 applic BID TOP Last administered on 08/15/18 08:28; Admin Dose 1 APPLIC; Start 07/25/18 at 21:00 Nystatin (Nystatin Oint) 1 applic TID TOP Last administered on 08/15/18 12:35; Admin Dose 1 APPLIC; Start 07/27/18 at 21:00 Hydromorphone HCl (Dilaudid) 1 mg Q3H PRN IV SEVERE PAIN LEVEL 7-10 Last administered on 08/15/18 15:14; Admin Dose 1 MG; Start 07/30/18 at 13:00 Ondansetron HCl (Zofran Odt) 8 mg Q6H PRN ODT NAUSEA AND/OR VOMITING Last administered on 08/15/18 11:42; Admin Dose 8 MG; Start 08/09/18 at 16:00 Spironolactone (Aldactone) 100 mg BID DIURETICS PO Last administered on 08/15/18 05:16; Admin Dose 100 MG; Start 08/11/18 at 06:00 Trazodone HCl (Desyrel) 100 mg HS PRN PO insomnia Last administered on 08/14/18 22:50; Admin Dose 100 MG; Start 08/14/18 at 12:00 Levofloxacin (Levaquin) 500 mg DAILY@06 PO ; Start 08/16/18 at 06:00 Miscellaneous Information (*Order Clarification Bulletin) MEDICATION REQUIRES CLARIFICATI... Q8H XX ; Start 08/15/18 at 16:00 ANA SPICER Aug 15, 2018 16:39
--- NOTE | 2018-08-15 17:27 | PREAC ---
Date/Time of Note Date/Time of Note DATE: 08/15/18 TIME: 17:26 Anesthesia Eval and Record Evaluation Time Pre-Procedure Interview DATE: 08/15/18 TIME: 17:26 Age 48 Sex female NPO: 8 hrs Preoperative diagnosis LEFT LOWER EXTRMITY WOUND Planned procedure LEFT LOWER EXTRMITY WOUND BED PREP W/ SKIN GRAFT Past Medical History Past Medical History: Includes Cardio: HTN Hepatic: Hepatitis, Cirrhosis Heme: Anemia Surgery & Anesthesia Issues No known issue Meds Anticoagulation: No Beta Dipak within 24 hr: No Reason Beta Dipak not given: Pt. not on B-Idpak Active Scripts Hydrocodone/Acetaminophen ([place] 5-325 Tablet) 1 Each Tablet, 1 TAB PO Q6H PRN for PAIN, #7 TAB Prov:RADHA MORALES MD 06/28/18 Ondansetron (Ondansetron Odt) 4 Mg Tab.rapdis, 4 MG PO Q6H PRN for NAUSEA AND/OR VOMITING, #10 TAB Prov:ALEXANDRIA QUIROGA MD 06/14/18 Reported Medications Lactulose (Constulose) 10 Gm/15 Ml Solution, 10 GM PO NEEDED 06/28/18 Albuterol Sulfate* (Ventolin HFA*) 18 Gm Hfa.aer.ad, 2 PUFF INHALATION Q4H, #1 INHALER 06/28/18 Midodrine* (Midodrine*) 5 Mg Tablet, 5 MG PO TID, TAB 06/28/18 Spironolactone* (Aldactone*) 100 Mg Tablet, 100 MG PO BID, #60 TAB 05/15/18 Omeprazole* (Omeprazole*) 20 Mg Capsule.dr, 20 MG PO BID, #60 CAP 05/15/18 Potassium Chloride* (K-Dur*) 20 Meq Tab.prt.sr, 20 MEQ PO BID, TAB.SA 05/15/18 Current Medications IV Flush (NS 3 ml) 3 ml PER PROTOCOL IV Last administered on 07/26/18at 20:08; Admin Dose 3 ML; Start 07/04/18 at 18:30 Docusate Sodium (Colace) 100 mg Q12H PRN PO .CONSTIPATION Last administered on 08/14/18at 21:49; Admin Dose 100 MG; Start 07/04/18 at 18:30 Albuterol (Proventil 0.083% (Neb)) 2.5 mg Q4H RESP THERAPY PRN HHN SHORTNESS OF BREATH; Start 07/04/18 at 18:30 Metoclopramide HCl (Reglan) 5 mg Q6H PRN IV NAUSEA Last administered on 08/15/18 15:09; Admin Dose 5 MG; Start 07/05/18 at 10:00 Midodrine (Proamatine) 10 mg TID PO Last administered on 08/15/18 12:34; Admin Dose 10 MG; Start 07/06/18 at 09:00 Albuterol (Ventolin Hfa) 2 puff Q4 INH Last administered on 08/15/18 15:46; Admin Dose 2 PUFF; Start 07/06/18 at 04:30 Rifaximin (Xifaxan) 200 mg TID PO Last administered on 08/15/18 12:35; Admin Dose 200 MG; Start 07/09/18 at 21:00 Acetaminophen/ Hydrocodone Bitart ([place] (5/325)) 1 tab Q6H PRN PO MODERATE PAIN LEVEL 4-6 Last administered on 08/08/18 06:18; Admin Dose 1 TAB; Start 07/14/18 at 17:30 Sodium Hypochlorite (Dakin'S (Dilute 40)) 1 applic DAILY IRR Last administered on 08/15/18 08:28; Admin Dose 1 APPLIC; Start 07/15/18 at 23:45 Simethicone (Mylicon) 80 mg Q6H PRN PO DISTENSION/GAS/BLOATING Last administered on 08/15/18 15:08; Admin Dose 80 MG; Start 07/16/18 at 15:30 Lactulose (Enulose) 10 gm DAILY PO Last administered on 08/15/18 08:22; Admin Dose 10 GM; Start 07/19/18 at 09:00 Diphenhydramine HCl (Benadryl) 25 mg Q8H PRN IV PRURITUS/ITCHING Last administered on 08/04/18 07:15; Admin Dose 25 MG; Start 07/20/18 at 18:30 Morphine Sulfate (morphine) 6 mg Q4H PRN PO SEVERE PAIN LEVEL 7-10 Last administered on 08/05/18 05:23; Admin Dose 6 MG; Start 07/20/18 at 23:30 Nystatin (Nystatin Powder) 1 applic BID TOP Last administered on 08/15/18 08:28; Admin Dose 1 APPLIC; Start 07/25/18 at 21:00 Nystatin (Nystatin Oint) 1 applic TID TOP Last administered on 08/15/18at 12:35; Admin Dose 1 APPLIC; Start 07/27/18 at 21:00 Hydromorphone HCl (Dilaudid) 1 mg Q3H PRN IV SEVERE PAIN LEVEL 7-10 Last administered on 08/15/18 15:14; Admin Dose 1 MG; Start 07/30/18 at 13:00 Ondansetron HCl (Zofran Odt) 8 mg Q6H PRN ODT NAUSEA AND/OR VOMITING Last administered on 08/15/18 11:42; Admin Dose 8 MG; Start 08/09/18 at 16:00 Spironolactone (Aldactone) 100 mg BID DIURETICS PO Last administered on 08/15/18 05:16; Admin Dose 100 MG; Start 08/11/18 at 06:00 Trazodone HCl (Desyrel) 100 mg HS PRN PO insomnia Last administered on 08/14/18 22:50; Admin Dose 100 MG; Start 08/14/18 at 12:00 Levofloxacin (Levaquin) 500 mg DAILY@06 PO ; Start 08/16/18 at 06:00 Miscellaneous Information (*Order Clarification Bulletin) MEDICATION REQUIRES CLARIFICATI... Q8H XX ; Start 08/15/18 at 16:00 Meds reviewed: Yes Allergies Coded Allergies: No Known Allergy (Unverified , 07/04/18) Allergies Reviewed: Yes Labs/Studies Labs Reviewed: Reviewed by anesthesiologist Result Diagram: 08/15/189 08/15/189 Laboratory Tests 08/15/18 04:49 test: Negative Pre-procedure Exam Last vitals Vital Signs Date Temp Pulse Resp B/P (MAP) Pulse Ox O2 O2 Flow FiO2 Time Delivery Rate 08/15/18 98.2 74 16 99/49 (66) 97 Room Air 14:32 Airway: Adequate mouth opening Mallampati: Mallampati II Teeth: Normal Lung: Normal Heart: Normal ASA Physical Status ASA physical status: 2 Emergency: None Planned Anesthetic General/MAC: ETT Pre-operative Attestations Prior to commencing anesthesia and surgery, the patient was re-evaluated, there was verification of: *The patient's identity *The results of appropriate recent lab work and preoperative vital signs *The above evaluation not changing prior to induction *Anesthetic plan, risk benefits, alternative and complications discussed with patient/family; questions answered; patient/family understands, accepts and wishes to proceed. ADRIAN SALDAÑA Aug 15, 2018 17:27
--- NOTE | 2018-08-15 18:12 | CONS ---
Assessment/Plan Assessment/Plan Assessment/Plan (Daily) 1. Alcoholic Cirrhosis of liver. -on transplant list at [facility] -AFP wnl 2. Anemia of chronic disease. 3. Pancytopenia secondary to #1 4. 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 5. Cellulitis, status post skin graft and wound VAC. -K. pneumoniae and coagulase neg staph in wound -followed by podiatry 6. Clostridium difficile colitis. -resolved 7. SBP -resolved, treatment complete 8. S/P colonoscopy 08/04 found diverticulosis and external hemorrhoids 9. S/P EGD 08/04 shows congestive gastropathy, esophageal varices 10. Anasarca -on aldactone 50 mg BID PO US of abd 08/01: 1. Coarse nodular liver consistent with cirrhosis. No focal hepatic masses. 2. Status post cholecystectomy. No biliary duct dilatation. 3. Patent portal vein with pulsatile hepatopetal flow. 4. Suspect portal hypertension as demonstrated by moderate ascites. 5. Moderate size right pleural effusion as well. 6. Increased right renal cortical echogenicity suggest medical renal disease PLAN: Continue Aldactone 100 mg p.o. twice daily Salt restriction with fluid restriction Continue present care Paracentesis as needed Monitor for GI bleeding High fiber diet Podiatry following, plan for skin graft Add lasix 20 mg Consultation Date/Type/Reason Admit Date/Time Jul 04, 2018 at 14:22 Initial Consult Date 07/07/18 Requesting Provider: ANA SPICER Date/Time of Note DATE: 08/15/18 TIME: 18:11 24 HR Interval Summary Constitutional: improved Exam/Review of Systems Exam Vitals Vital Signs Date Temp Pulse Resp B/P (MAP) Pulse Ox O2 O2 Flow FiO2 Time Delivery Rate 08/15/18 98.2 74 16 99/49 (66) 97 Room Air 14:32 Intake and Output 08/14/18 08/14/18 08/15/18 1515:00 23:00 07:00 IntakeIntake Total 540 ml 240 ml 360 ml BalanceBalance 540 ml 240 ml 360 ml Constitutional: alert, oriented, well developed Psych: no complaints, nl mood/affect Head: normocephalic, atraumatic Eyes: nl conjunctiva, EOMI, nl lids, nl sclera, PERRL ENMT: nl external ears & nose, nl lips & teeth, nl nasal mucosa & septum Neck: supple, non-tender Respiratory: clear to auscultation, normal air movement Cardiovascular: regular rate and rhythm, nl pulses Gastrointestinal: soft, nl liver, spleen, non-tender Musculoskeletal: nl extremities to inspection, nl gait and stance Extremities: normal pulses 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: COOK BARBECUE II-XII intact, nl mental status, nl speech, nl strength Skin: nl turgor; No rash or lesions Lymph: nl lymph nodes Results Result Diagram: 08/15/1844808/15/18448 Results 24hrs Laboratory Tests Test 08/15/18 04:49 White Blood Count 4.1 L Red Blood Count 2.42 L Hemoglobin 8.0 L Hematocrit 24.8 L Mean Corpuscular Volume 102.5 H Mean Corpuscular Hemoglobin 33.1 H Mean Corpuscular Hemoglobin Concent 32.3 Red Cell Distribution Width 17.4 H Platelet Count 52 L Mean Platelet Volume 10.7 H Immature Granulocytes % 0.500 H Neutrophils % 48.9 Lymphocytes % 31.3 Monocytes % 16.1 H Eosinophils % 2.7 Basophils % 0.5 Nucleated Red Blood Cells % 0.0 Immature Granulocytes # 0.020 Neutrophils # 2.0 Lymphocytes # 1.3 Monocytes # 0.7 Eosinophils # 0.1 Basophils # 0.0 Nucleated Red Blood Cells # 0.0 Sodium Level 137 Potassium Level 4.1 Chloride Level 105 Carbon Dioxide Level 26 Anion Gap 6 Blood Urea Nitrogen 5 L Creatinine 0.51 Est Glomerular Filtrat Rate mL/min > 60 Glucose Level 96 Calcium Level 7.8 L Magnesium Level 2.0 Total Bilirubin 4.7 H Direct Bilirubin 0.30 H Indirect Bilirubin 4.4 H Aspartate Amino Transf (AST/SGOT) 40 Alanine Aminotransferase (ALT/SGPT) 33 Alkaline Phosphatase 90 Total Protein 4.3 L Albumin 1.8 L Globulin 2.50 Albumin/Globulin Ratio 0.72 Medications Medication Current Medications IV Flush (NS 3 ml) 3 ml PER PROTOCOL IV Last administered on 07/26/18at 20:08; Admin Dose 3 ML; Start 07/04/18 at 18:30 Docusate Sodium (Colace) 100 mg Q12H PRN PO .CONSTIPATION Last administered on 08/14/18at 21:49; Admin Dose 100 MG; Start 07/04/18 at 18:30 Albuterol (Proventil 0.083% (Neb)) 2.5 mg Q4H RESP THERAPY PRN HHN SHORTNESS OF BREATH; Start 07/04/18 at 18:30 Metoclopramide HCl (Reglan) 5 mg Q6H PRN IV NAUSEA Last administered on 08/15/18 15:09; Admin Dose 5 MG; Start 07/05/18 at 10:00 Midodrine (Proamatine) 10 mg TID PO Last administered on 08/15/18 12:34; Admin Dose 10 MG; Start 07/06/18 at 09:00 Albuterol (Ventolin Hfa) 2 puff Q4 INH Last administered on 08/15/18 17:27; Admin Dose 2 PUFF; Start 07/06/18 at 04:30 Rifaximin (Xifaxan) 200 mg TID PO Last administered on 08/15/18 12:35; Admin Dose 200 MG; Start 07/09/18 at 21:00 Sodium Hypochlorite (Dakin'S (Dilute )) 1 applic DAILY IRR Last administered on 08/15/18 08:28; Admin Dose 1 APPLIC; Start 07/15/18 at 23:45 Simethicone (Mylicon) 80 mg Q6H PRN PO DISTENSION/GAS/BLOATING Last adminis tered on 08/15/18 15:08; Admin Dose 80 MG; Start 07/16/18 at 15:30 Lactulose (Enulose) 10 gm DAILY PO Last administered on 08/15/18 08:22; Admin Dose 10 GM; Start 07/19/18 at 09:00 Diphenhydramine HCl (Benadryl) 25 mg Q8H PRN IV PRURITUS/ITCHING Last administered on 08/04/18 07:15; Admin Dose 25 MG; Start 07/20/18 at 18:30 Morphine Sulfate (morphine) 6 mg Q4H PRN PO SEVERE PAIN LEVEL 7-10 Last administered on 08/05/18 05:23; Admin Dose 6 MG; Start 07/20/18 at 23:30 Nystatin (Nystatin Powder) 1 applic BID TOP Last administered on 08/15/18 08:28; Admin Dose 1 APPLIC; Start 07/25/18 at 21:00 Nystatin (Nystatin Oint) 1 applic TID TOP Last administered on 3/11/19at 12:35; Admin Dose 1 APPLIC; Start 07/27/18 at 21:00 Hydromorphone HCl (Dilaudid) 1 mg Q3H PRN IV SEVERE PAIN LEVEL 7-10 Last administered on 08/15/18at 15:14; Admin Dose 1 MG; Start 07/30/18 at 13:00 Ondansetron HCl (Zofran Odt) 8 mg Q6H PRN ODT NAUSEA AND/OR VOMITING Last administered on 08/15/18at 11:42; Admin Dose 8 MG; Start 08/09/18 at 16:00 Spironolactone (Aldactone) 100 mg BID DIURETICS PO Last administered on at 17:26; Admin Dose 100 MG; Start 08/11/18 at 06:00 Trazodone HCl (Desyrel) 100 mg HS PRN PO insomnia Last administered on 08/14/18at 22:50; Admin Dose 100 MG; Start 08/14/18 at 12:00 Levofloxacin (Levaquin) 500 mg DAILY@06 PO ; Start 08/16/18 at 06:00 Miscellaneous Information (*Order Clarification Bulletin) MEDICATION REQUIRES CLARIFICATI... Q8H XX ; Start 08/15/18 at 16:00 TRISTIAN NAIDU MD Aug 15, 2018 18:12
[2018-08-15] MEDS: traZODone 100 MG TAB PO PRN (21:28)
[2018-08-16] VITALS (17 sets, daily range): BP systolic 94–128; BP diastolic 48–69; PULSE 74–90; RESP 11–20
[2018-08-16] MEDS: ALBUTEROL HFA 8 GM INHALER INH SCH ×6 (01:00→21:34)
[2018-08-16] MEDS: METOCLOPRAMIDE 10 MG INJ IV PRN ×2 (05:17→17:52)
[2018-08-16] MEDS: SPIRONOLACTONE 50 MG TAB PO SCH ×2 (05:18→17:53)
[2018-08-16] MEDS: LEVOFLOXACIN 500 MG TAB PO SCH (05:18)
[2018-08-16] MEDS: HYDROmorphONE 1 MG/ML SYG IV PRN ×4 (05:18→21:36)
[2018-08-16] MEDS ORDERED: METOCLOPRAMIDE 10 MG INJ ONE ×2 (07:00→07:45)
[2018-08-16] MEDS ORDERED: DEXAMETHASONE 4 MG/ML 5 ML INJ ONE (07:00)
[2018-08-16] MEDS ORDERED: ALBUMIN HUMAN 25% 100 ML INJ ONE (07:00)
[2018-08-16] MEDS ORDERED: ONDANSETRON 4 MG INJ ONE (07:00)
--- NOTE | 2018-08-16 07:35 | HPN ---
Date/Time of Note Date/Time of Note DATE: 08/16/18 TIME: 07:35 Interval H&P Admission Note Pt. seen H&P reviewed: No system changes JEANINE SAWYER DPM Aug 16, 2018 07:35
--- NOTE | 2018-08-16 07:37 | PREAC ---
Date/Time of Note Date/Time of Note DATE: 08/16/18 TIME: 07:34 Anesthesia Eval and Record Evaluation Time Pre-Procedure Interview DATE: 08/16/18 TIME: 07:34 Age 48 Sex female NPO: 8 hrs Preoperative diagnosis leg cellulitis Planned procedure leg debridement w/ skin graft Past Medical History Past Medical History: Includes Cardio: CHF Pulm: COPD Hepatic: Alcohol abuse, Hepatitis, Cirrhosis GI: GERD Heme: Anemia, Coagulation disorder, Thrombocytopenia, Other (pancytopenia) Psych: Anxiety Infection(s): Hep C Surgery & Anesthesia Issues No known issue Meds Anticoagulation: No Beta Dipak within 24 hr: No Reason Beta Dipak not given: Pt. not on B-Dipak Active Scripts Hydrocodone/Acetaminophen ([place] 5-325 Tablet) 1 Each Tablet, 1 TAB PO Q6H PRN for PAIN, #7 TAB Prov:RADHA MORALES MD 06/28/18 Ondansetron (Ondansetron Odt) 4 Mg Tab.rapdis, 4 MG PO Q6H PRN for NAUSEA AND/OR VOMITING, #10 TAB Prov:ALEXANDRIA QUIROGA MD 06/14/18 Reported Medications Lactulose (Constulose) 10 Gm/15 Ml Solution, 10 GM PO NEEDED 06/28/18 Albuterol Sulfate* (Ventolin HFA*) 18 Gm Hfa.aer.ad, 2 PUFF INHALATION Q4H, #1 INHALER 06/28/18 Midodrine* (Midodrine*) 5 Mg Tablet, 5 MG PO TID, TAB 06/28/18 Spironolactone* (Aldactone*) 100 Mg Tablet, 100 MG PO BID, #60 TAB 05/15/18 Omeprazole* (Omeprazole*) 20 Mg Capsule.dr, 20 MG PO BID, #60 CAP 05/15/18 Potassium Chloride* (K-Dur*) 20 Meq Tab.prt.sr, 20 MEQ PO BID, TAB.SA 05/15/18 Current Medications IV Flush (NS 3 ml) 3 ml PER PROTOCOL IV Last administered on 07/26/18at 20:08; Admin Dose 3 ML; Start 07/04/18 at 18:30 Docusate Sodium (Colace) 100 mg Q12H PRN PO .CONSTIPATION Last administered on 08/14/18at 21:49; Admin Dose 100 MG; Start 07/04/18 at 18:30 Albuterol (Proventil 0.083% (Neb)) 2.5 mg Q4H RESP THERAPY PRN HHN SHORTNESS OF BREATH; Start 07/04/18 at 18:30 Metoclopramide HCl (Reglan) 5 mg Q6H PRN IV NAUSEA Last administered on 08/16/18 05:17; Admin Dose 5 MG; Start 07/05/18 at 10:00 Midodrine (Proamatine) 10 mg TID PO Last administered on 08/15/18 21:28; Admin Dose 10 MG; Start 07/06/18 at 09:00 Albuterol (Ventolin Hfa) 2 puff Q4 INH Last administered on 08/16/18 05:18; Admin Dose 2 PUFF; Start 07/06/18 at 04:30 Rifaximin (Xifaxan) 200 mg TID PO Last administered on 08/15/18 21:29; Admin Dose 200 MG; Start 07/09/18 at 21:00 Sodium Hypochlorite (Dakin'S (Dilute 40)) 1 applic DAILY IRR Last administered on 08/15/18 08:28; Admin Dose 1 APPLIC; Start 07/15/18 at 23:45 Simethicone (Mylicon) 80 mg Q6H PRN PO DISTENSION/GAS/BLOATING Last administered on 08/15/18 15:08; Admin Dose 80 MG; Start 07/16/18 at 15:30 Lactulose (Enulose) 10 gm DAILY PO Last administered on 08/15/18 08:22; Admin Dose 10 GM; Start 07/19/18 at 09:00 Diphenhydramine HCl (Benadryl) 25 mg Q8H PRN IV PRURITUS/ITCHING Last administered on 08/04/18 07:15; Admin Dose 25 MG; Start 07/20/18 at 18:30 Morphine Sulfate (morphine) 6 mg Q4H PRN PO SEVERE PAIN LEVEL 7-10 Last adminis tered on 08/05/18 05:23; Admin Dose 6 MG; Start 07/20/18 at 23:30 Nystatin (Nystatin Powder) 1 applic BID TOP Last administered on 08/15/18 08:28; Admin Dose 1 APPLIC; Start 07/25/18 at 21:00 Nystatin (Nystatin Oint) 1 applic TID TOP Last administered on 08/15/18at 12:35; Admin Dose 1 APPLIC; Start 07/27/18 at 21:00 Hydromorphone HCl (Dilaudid) 1 mg Q3H PRN IV SEVERE PAIN LEVEL 7-10 Last admini stered on 08/16/18at 05:18; Admin Dose 1 MG; Start 07/30/18 at 13:00 Ondansetron HCl (Zofran Odt) 8 mg Q6H PRN ODT NAUSEA AND/OR VOMITING Last administered on 08/15/18 18:42; Admin Dose 8 MG; Start 08/09/18 at 16:00 Spironolactone (Aldactone) 100 mg BID DIURETICS PO Last administered on 08/15/18 17:26; Admin Dose 100 MG; Start 08/11/18 at 06:00 Trazodone HCl (Desyrel) 100 mg HS PRN PO insomnia Last administered on 08/15/18 21:28; Admin Dose 100 MG; Start 08/14/18 at 12:00 Levofloxacin (Levaquin) 500 mg DAILY@06 PO ; Start 08/16/18 at 06:00 Miscellaneous Information (*Order Clarification Bulletin) MEDICATION REQUIRES CLARIFICATI... Q8H XX ; Start 08/15/18 at 16:00 Furosemide (Lasix) 20 mg DAILY GTB ; Start 08/16/18 at 09:00 Meds reviewed: Yes Allergies Coded Allergies: No Known Allergy (Unverified , 07/04/18) Allergies Reviewed: Yes Labs/Studies Labs Reviewed: Reviewed by anesthesiologist Result Diagram: 08/15/18 0449 08/16/18 0618 Laboratory Tests 08/16/18 06:18 test: Negative Studies: ECG, CXR Pre-procedure Exam Last vitals Vital Signs Date Temp Pulse Resp B/P (MAP) Pulse Ox O2 O2 Flow FiO2 Time Delivery Rate 08/16/18 98.0 81 20 94/56 (69) 99 02:00 08/15/18 Room Air 14:32 Airway: Adequate mouth opening, Adequate thyromental dist Mallampati: Mallampati III Teeth: Normal Lung: Normal Heart: Normal ASA Physical Status ASA physical status: 3 Emergency: None Planned Anesthetic General/MAC: LMA Planned Pain Management Single shot nerve block, Parenteral pain med, Local by surgeon Pre-operative Attestations Prior to commencing anesthesia and surgery, the patient was re-evaluated, there was verification of: *The patient's identity *The results of appropriate recent lab work and preoperative vital signs *The above evaluation not changing prior to induction *Anesthetic plan, risk benefits, alternative and complications discussed with patient/family; questions answered; patient/family understands, accepts and wishes to proceed. DORON SANTIAGO MD Aug 16, 2018 07:37
[2018-08-16] MEDS ORDERED: MIDAZOLAM 1 MG/ML 2 ML INJ ONE (07:41)
[2018-08-16] MEDS ORDERED: ETOMIDATE 20 MG INJ ONE (07:41)
[2018-08-16] MEDS ORDERED: LIDOCAINE 2% (SDV) 5 ML INJ ONE (07:41)
[2018-08-16] MEDS ORDERED: ROPIVACAINE 0.5 % 30 ML VIAL ONE (07:41)
[2018-08-16] MEDS ORDERED: FENTAnyl 50 MCG/ML VIAL ONE (07:41)
[2018-08-16] MEDS ORDERED: THROMBIN (BOVINE) 5,000 UNIT VIAL TP ONE (07:46)
[2018-08-16] MEDS ORDERED: LIDOCAINE 1%/EPI (1:100,000) (MDV) 20 ML ONE (07:46)
[2018-08-16] MEDS ORDERED: LIDOCAINE 2% (MDV) 20 ML INJ ONE (07:46)
[2018-08-16] MEDS ORDERED: MIDAZOLAM 1 MG/ML 2 ML INJ IV PRN (08:00)
[2018-08-16] MEDS ORDERED: LEVALBUTEROL (NEB) 1.25 MG/0.5 ML AMP HHN PRN (08:00)
[2018-08-16] MEDS ORDERED: ONDANSETRON 4 MG INJ IV PRN (08:00)
[2018-08-16] MEDS ORDERED: MEPERIDINE 25 MG INJ IV PRN (08:00)
[2018-08-16] MEDS ORDERED: HYDROmorphONE 1 MG/5 ML IV SYRINGE IV PRN ×2 (08:00)
[2018-08-16] MEDS ORDERED: ALBUMIN HUMAN 5% 250 ML IV PRN (08:00)
[2018-08-16] MEDS ORDERED: DIPHENHYDRAMINE 50 MG INJ IV PRN (08:00)
[2018-08-16] MEDS ORDERED: IPRATROPIUM (NEB) 0.5 MG/2.5 ML AMP HHN PRN (08:00)
[2018-08-16] MEDS ORDERED: FENTAnyl 50 MCG/ML VIAL IV PRN ×2 (08:00)
[2018-08-16] MEDS ORDERED: LORAZEPAM 2 MG INJ IV PRN (08:00)
[2018-08-16] MEDS ORDERED: MINERAL OIL LIGHT 10 ML VIAL ONE (08:27)
--- NOTE | 2018-08-16 08:44 | SIPON ---
Date/Time of Note Date/Time of Note DATE: 08/16/18 TIME: 08:44 Operative Report Preoperative Diagnosis Left lower extremity non-pressure ulceration Liver cirrhosis Edema Postoperative Diagnosis Left lower extremity non-pressure ulceration Liver cirrhosis Edema Operation/Procedure Performed left lower extremity skin prep Application of split thickness skin graft Surgeon Jcak Sawyer DPM clerical administrative assistant none Anesthesia: general Estimated blood loss: 0 - 10 ml's Transfusion Required none Specimen none Grafts/Implants none Complications none JACK SAWYER DPM Aug 16, 2018 08:44
--- NOTE | 2018-08-16 08:55 | OPR ---
Date/Time of Note Date/Time of Note DATE: 08/16/18 TIME: 08:55 Operative Report Preoperative Diagnosis Left lower extremity non-pressure ulceration Liver cirrhosis Edema Postoperative Diagnosis Left lower extremity non-pressure ulceration Liver cirrhosis Edema Operation/Procedure Performed left lower extremity skin prep Application of split thickness skin graft Surgeon Jack Sawyer DPM Event Set Up Specialist none Anesthesia Type: general Estimated Blood Loss: 0 - 10 ml's Transfusion none Specimen none Grafts/Implants none Complications none Indications 48 y/o F with history of a non pressure ulceration to the left foot with abscess and cellulitis underwent debridement, I&D, and application of allograft with wound VAC therapy. She has been progressing well with granulation tissue being formed. Discussed benefits of split thickness skin grafting with the patient and she is amenable to the procedure to help accelerate wound healing. All of the patient's questions and concerns were addressed, no promises or guarantees were given. Procedure Description Patient was brought into the OR and kept in the supine position. A pre- operative sciatic block was performed by anesthesia team. The left lower extremity was scrubbed, prepped, and draped in the usual aseptic fashion. A formal time out was conducted. Attention was directed to the left foot ulceration site which measured 7.5 x 2.5 x 0.1cm located on the dorsal aspect. The ulceration is 100% granular with no tunneling, undermining, or purulence appreciated and without erythema. The wound bed was prepared using curettage with removal of any biofilm and fibrotic tissue. Copious irrigation to the wound site. Next the proximal left lower extremity donor site was prepared with local injection of lidocaine 1% with epinephrine. Mineral oil was applied topically and a dermatome was used with 0.018 of inch depth to harvest the autogenous split thickness skin graft. The autograft was meshed using 1 to 1.5 mesher. The skin graft was applied to the dorsal left foot and secured with skin [place]. Topical thrombin was applied to the donor site and dressed with xeroform, 4x4 gauze and tegaderm. The dorsal left foot was dressed with xeroform, 4x4 gauze, and dry sterile dressings. Patient was transferred to PACU with vital signs stable and neurovascular status intact. JACK SAWYER DPM Aug 16, 2018 08:55
[2018-08-16] MEDS: NYSTATIN 15 GM OINT TOP SCH ×3 (09:00→21:35)
[2018-08-16] MEDS: LACTULOSE 30ML CUP PO SCH (09:00)
[2018-08-16] MEDS: FUROSEMIDE 20 MG TAB GTB SCH (09:00)
[2018-08-16] MEDS: NYSTATIN 30 GM POWDER BTL TOP SCH ×2 (09:00→21:35)
[2018-08-16] MEDS: SODIUM HYPOCHLORITE (1/40) 1 APPLIC BTL IRR SCH (09:00)
[2018-08-16] MEDS: MIDODRINE 5 MG TAB PO SCH ×3 (09:00→21:35)
[2018-08-16] MEDS: RIFAXIMIN 200 MG TAB PO SCH ×3 (09:00→21:35)
--- NOTE | 2018-08-16 10:44 | PAC ---
Date/Time of Note Date/Time of Note DATE: 08/16/18 TIME: 10:44 Post-Anesthesia Notes Post-Anesthesia Note Last documented vital signs Vital Signs Date Temp Pulse Resp B/P (MAP) Pulse Ox O2 O2 Flow FiO2 Time Delivery Rate 08/16/18 97.6 84 16 102/52 96 Nasal 2.0 10:14 (69) Cannula Activity: WNL Respiratory function: WNL Cardiovascular function: WNL Mental status: Baseline Pain reasonably controlled: Yes Hydration appropriate: Yes Nausea/Vomiting absent: Yes DORON SANTIAGO MD Aug 16, 2018 10:44
--- NOTE | 2018-08-16 12:59 | CONS ---
Assessment/Plan Assessment/Plan Hospital Course (Demo Recall) All noted, no events no fevers Microbiology: Blood culture on admission grew Klebsiella pneumonia on July 04 susceptible to Cipro and Levaquin, stool for C. difficile positive, urine culture negative MRSA swab negative, L foot wound culture grew Klebsiella pneumoniae susceptible to ming quinolones and staph species. Repeat left foot wound culture growing coag negative staph species Physical examination: Chronically ill-appearing middle-aged woman who is in no distress. Head atraumatic normocephalic sclera nonicteric vehicle mucosa dry neck is supple chest rise symmetrical breath sounds diminished at bases. Heart: S1-S2. Abdomen soft bowel sounds present extremities with bilateral edema, left lower extremity dressing intact Assessment: 1. S/p sepsis with Klebsiella pneumonia bacteremia likely secondary to SBP vs #2 2. Left lower extremity abscess/ cellulitis==> neg OM, s/p i/d 07/18/18 with wound vac, s/p skin graft 08/16/18 3. C. difficile colitis==> treated 4. Alcoholic liver cirrhosis==> on tx list at [facility] 5. Recurrent ascites s/p multiple paracentesis 6. Anemia and thrombocytopenia Plan: Remains stable, continue Levaquin for 6 more days Consultation Date/Type/Reason Admit Date/Time Jul 04, 2018 at 14:22 Initial Consult Date 07/07/18 Type of Consult id Requesting Provider: ANA SPICER Date/Time of Note DATE: 08/16/18 TIME: 12:58 Exam/Review of Systems Exam Vitals Vital Signs Date Temp Pulse Resp B/P (MAP) Pulse Ox O2 O2 Flow FiO2 Time Delivery Rate 08/16/18 97.6 84 16 102/52 96 Nasal 2.0 10:14 (69) Cannula Intake and Output 08/15/18 08/15/18 08/16/18 1515:00 23:00 07:00 IntakeIntake Total 350 ml 275 ml OutputOutput Total 3700 ml BalanceBalance -3350 ml 275 ml Results Result Diagram: 08/15/18 0449 08/16/18 0618 Results 24hrs Laboratory Tests Test 08/16/18 06:16 08/16/18 06:18 Serum HCG, Qualitative NEGATIVE Sodium Level 137 Potassium Level 4.0 Chloride Level 105 Carbon Dioxide Level 25 Anion Gap 7 Blood Urea Nitrogen 5 L Creatinine 0.47 Est Glomerular Filtrat Rate mL/min > 60 Glucose Level 89 Calcium Level 7.8 L Total Bilirubin 4.6 H Direct Bilirubin 0.40 H Indirect Bilirubin 4.2 H Aspartate Amino Transf (AST/SGOT) 40 Alanine Aminotransferase (ALT/SGPT) 35 Alkaline Phosphatase 106 Total Protein 4.6 L Albumin 1.9 L Globulin 2.70 Albumin/Globulin Ratio 0.70 Medications Medication Current Medications IV Flush (NS 3 ml) 3 ml PER PROTOCOL IV Last administered on 07/26/18 20:08; Admin Dose 3 ML; Start 07/04/18 at 18:30 Docusate Sodium (Colace) 100 mg Q12H PRN PO .CONSTIPATION Last administered on 08/14/18 21:49; Admin Dose 100 MG; Start 07/04/18 at 18:30 Albuterol (Proventil 0.083% (Neb)) 2.5 mg Q4H RESP THERAPY PRN HHN SHORTNESS OF BREATH; Start 07/04/18 at 18:30 Metoclopramide HCl (Reglan) 5 mg Q6H PRN IV NAUSEA Last administered on 08/16/18 05:17; Admin Dose 5 MG; Start 07/05/18 at 10:00 Midodrine (Proamatine) 10 mg TID PO Last administered on 08/16/18 12:35; Admin Dose 10 MG; Start 07/06/18 at 09:00 Albuterol (Ventolin Hfa) 2 puff Q4 INH Last administered on 08/16/18 12:35; Admin Dose 2 PUFF; Start 07/06/18 at 04:30 Rifaximin (Xifaxan) 200 mg TID PO Last administered on 08/16/18 12:34; Admin Dose 200 MG; Start 07/09/18 at 21:00 Sodium Hypochlorite (Dakin'S (Dilute )) 1 applic DAILY IRR Last administered on 08/15/18 08:28; Admin Dose 1 APPLIC; Start 07/15/18 at 23:45 Simethicone (Mylicon) 80 mg Q6H PRN PO DISTENSION/GAS/BLOATING Last administered on 08/15/18 15:08; Admin Dose 80 MG; Start 07/16/18 at 15:30 Lactulose (Enulose) 10 gm DAILY PO Last administered on 08/15/18 08:22; Admin Dose 10 GM; Start 07/19/18 at 09:00 Diphenhydramine HCl (Benadryl) 25 mg Q8H PRN IV PRURITUS/ITCHING Last administered on 08/04/18 07:15; Admin Dose 25 MG; Start 07/20/18 at 18:30 Morphine Sulfate (morphine) 6 mg Q4H PRN PO SEVERE PAIN LEVEL 7-10 Last administered on 08/05/18 05:23; Admin Dose 6 MG; Start 07/20/18 at 23:30 Nystatin (Nystatin Powder) 1 applic BID TOP Last administered on 08/15/18 08:28; Admin Dose 1 APPLIC; Start 07/25/18 at 21:00 Nystatin (Nystatin Oint) 1 applic TID TOP Last administered on 08/16/18 12:34; Admin Dose 1 APPLIC; Start 07/27/18 at 21:00 Hydromorphone HCl (Dilaudid) 1 mg Q3H PRN IV SEVERE PAIN LEVEL 7-10 Last administered on 08/16/18 05:18; Admin Dose 1 MG; Start 07/30/18 at 13:00 Ondansetron HCl (Zofran Odt) 8 mg Q6H PRN ODT NAUSEA AND/OR VOMITING Last administered on 08/15/18 18:42; Admin Dose 8 MG; Start 08/09/18 at 16:00 Spironolactone (Aldactone) 100 mg BID DIURETICS PO Last administered on 08/15/18 17:26; Admin Dose 100 MG; Start 08/11/18 at 06:00 Trazodone HCl (Desyrel) 100 mg HS PRN PO insomnia Last administered on 08/15/18 21:28; Admin Dose 100 MG; Start 08/14/18 at 12:00 Levofloxacin (Levaquin) 500 mg DAILY@06 PO ; Start 08/16/18 at 06:00 Miscellaneous Information (*Order Clarification Bulletin) MEDICATION REQUIRES CLARIFICATI... Q8H XX ; Start 08/15/18 at 16:00 Furosemide (Lasix) 20 mg DAILY GTB ; Start 08/16/18 at 09:00 Hydromorphone HCl (Dilaudid) 0.2 mg PACU PRN IV MILD PAIN 1-3; Start 08/16/18 at 08:00; Stop 08/16/18 at 17:00 Hydromorphone HCl (Dilaudid) 0.4 mg PACU PRN IV MOD PAIN 4-6; Start 08/16/18 at 08:00; Stop 08/16/18 at 17:00 Fentanyl (Sublimaze) 25 mcg PACU ORDER PRN IV MILD PAIN 1-3; Start 08/16/18 at 08:00; Stop 08/16/18 at 17:00 Fentanyl (Sublimaze) 50 mcg PACU ORDER PRN IV MOD PAIN 4-6; Start 08/16/18 at 08:00; Stop 08/16/18 at 17:00 Ondansetron HCl (Zofran Inj) 4 mg PACU ORDER PRN IV NAUSEA/VOMITING; Start 08/16/18 at 08:00; Stop 08/16/18 at 17:00 Albumin Human 250 ml @ 750 mls/hr PACU ORDER PRN IV BP SUPPORT; Start 08/16/18 at 08:00; Stop 08/16/18 at 17:00 Levalbuterol (Xopenex Neb) 1.25 mg PACU ORDER PRN HHN .WHEEZING; Start 08/16/18 at 08:00; Stop 08/16/18 at 17:00 Ipratropium [place] (Atrovent 0.02% (Neb)) 0.5 mg PACU ORDER PRN HHN .WHEEZING; Start 08/16/18 at 08:00; Stop 08/16/18 at 17:00 Meperidine HCl (Demerol) 25 mg PACU ORDER PRN IV .RIGORS; Start 08/16/18 at 08:00; Stop 08/16/18 at 17:00 Diphenhydramine HCl (Benadryl) 25 mg PACU ORDER PRN IV .PRURITUS; Start 08/16/18 at 08:00; Stop 08/16/18 at 17:00 Lorazepam (Ativan) 1 mg PACU ORDER PRN IV .ANXIETY; Start 08/16/18 at 08:00; Stop 08/16/18 at 17:00 Midazolam HCl (Versed) 0.5 mg PACU ORDER PRN IV .ANXIETY; Start 08/16/18 at 08:00; Stop 08/16/18 at 17:00 EMA MUELLER NP Aug 16, 2018 12:59
[2018-08-16] MEDS: DOCUSATE SODIUM 100 MG CAP PO PRN ×2 (14:09→14:10)
[2018-08-16] MEDS: ONDANSETRON (ODT) 4 MG TAB ODT PRN ×2 (14:22→21:35)
--- NOTE | 2018-08-16 15:03 | PN ---
Date/Time of Note Date/Time of Note DATE: 08/16/18 TIME: 15:02 Assessment/Plan VTE Prophylaxis Risk score (from Nsg)>0 risk: 3 Pharmacological prophylaxis: NA/contraindicated Pharm contraindication: liver dx Lines/Catheters IV Catheter Type (from Nrsg): Peripheral IV Urinary Cath still in place: No Assessment/Plan Hospital Course 1. Left foot wound s/p debridement with wound VAC- stable - Podiatry on board and appreciate recommendations, skin graft done today - s/p skin allograft and wound vac placement 07/27/18 - MRI foot shows no evidence of OM - Completed course of antibiotics 2. SBP with klebsiella bacteremia: - finished course of antibiotics - last culture from paracentesis negative 3. Cirrhosis with ascites - Status post paracentesis x 7 - Continue current increased dose of Aldactone 100mg BID. Will hold off on Lasix given low BP - Continue rifaximin/lactulose - has follow up with Dr. Gómez as outpatient, liver transplant preop EGD and colonoscopy shows nonbleeding varices and diverticulosis 4. Anemia - most likely 2/2 liver dz 5. Acute kidney injury likely secondary to hemodynamics and intravascular volume depletion-resolved - Nephrology consultation appreciated 6. Anemia of chronic disease - stable 7. C Diff diarrhea - s/p PO vanco course - resolving - repeat ordered but given on Lactulose, lab will not process sample 8. Left breast implant rupture - MRI ordered but patient unable to undergo until can walk - patient has had saline implant in for the past 20 years. Has had issues with it in the past given behind the muscle 9. Disposition - Pending SNF placement Result Diagram: 08/15/18 0449 08/16/18 0618 Results 24hrs Laboratory Tests Test 08/16/18 06:16 08/16/18 06:18 Serum HCG, Qualitative NEGATIVE Sodium Level 137 Potassium Level 4.0 Chloride Level 105 Carbon Dioxide Level 25 Anion Gap 7 Blood Urea Nitrogen 5 L Creatinine 0.47 Est Glomerular Filtrat Rate mL/min > 60 Glucose Level 89 Calcium Level 7.8 L Total Bilirubin 4.6 H Direct Bilirubin 0.40 H Indirect Bilirubin 4.2 H Aspartate Amino Transf (AST/SGOT) 40 Alanine Aminotransferase (ALT/SGPT) 35 Alkaline Phosphatase 106 Total Protein 4.6 L Albumin 1.9 L Globulin 2.70 Albumin/Globulin Ratio 0.70 Subjective 24 Hr Interval Summary Constitutional: no complaints Exam/Review of Systems Exam Vitals Vital Signs Date Temp Pulse Resp B/P (MAP) Pulse Ox O2 O2 Flow FiO2 Time Delivery Rate 08/16/18 97.6 84 16 102/52 96 Nasal 2.0 10:14 (69) Cannula Intake and Output 08/15/18 08/15/18 08/16/18 1515:00 23:00 07:00 IntakeIntake Total 350 ml 275 ml OutputOutput Total 3700 ml BalanceBalance -3350 ml 275 ml Constitutional: alert, oriented Respiratory: clear to auscultation Cardiovascular: regular rate and rhythm Gastrointestinal: soft; No distended Musculoskeletal: No nl extremities to inspection Results Results 24hrs Laboratory Tests Test 08/16/18 06:16 08/16/18 06:18 Serum HCG, Qualitative NEGATIVE Sodium Level 137 Potassium Level 4.0 Chloride Level 105 Carbon Dioxide Level 25 Anion Gap 7 Blood Urea Nitrogen 5 L Creatinine 0.47 Est Glomerular Filtrat Rate mL/min > 60 Glucose Level 89 Calcium Level 7.8 L Total Bilirubin 4.6 H Direct Bilirubin 0.40 H Indirect Bilirubin 4.2 H Aspartate Amino Transf (AST/SGOT) 40 Alanine Aminotransferase (ALT/SGPT) 35 Alkaline Phosphatase 106 Total Protein 4.6 L Albumin 1.9 L Globulin 2.70 Albumin/Globulin Ratio 0.70 Medications Medication Current Medications IV Flush (NS 3 ml) 3 ml PER PROTOCOL IV Last administered on 07/26/18at 20:08; Admin Dose 3 ML; Start 07/04/18 at 18:30 Docusate Sodium (Colace) 100 mg Q12H PRN PO .CONSTIPATION Last administered on 08/16/18at 14:09; Admin Dose 100 MG; Start 07/04/18 at 18:30 Albuterol (Proventil 0.083% (Neb)) 2.5 mg Q4H RESP THERAPY PRN HHN SHORTNESS OF BREATH; Start 07/04/18 at 18:30 Metoclopramide HCl (Reglan) 5 mg Q6H PRN IV NAUSEA Last administered on 08/16/18at 05:17; Admin Dose 5 MG; Start 07/05/18 at 10:00 Midodrine (Proamatine) 10 mg TID PO Last administered on 08/16/18at 12:35; Admin Dose 10 MG; Start 07/06/18 at 09:00 Albuterol (Ventolin Hfa) 2 puff Q4 INH Last administered on 08/16/18 12:35; Admin Dose 2 PUFF; Start 07/06/18 at 04:30 Rifaximin (Xifaxan) 200 mg TID PO Last administered on 08/16/18 12:34; Admin D ose 200 MG; Start 07/09/18 at 21:00 Sodium Hypochlorite (Dakin'S (Dilute )) 1 applic DAILY IRR Last administered on 08/15/18 08:28; Admin Dose 1 APPLIC; Start 07/15/18 at 23:45 Simethicone (Mylicon) 80 mg Q6H PRN PO DISTENSION/GAS/BLOATING Last administered on 08/16/18 14:22; Admin Dose 80 MG; Start 07/16/18 at 15:30 Lactulose (Enulose) 10 gm DAILY PO Last administered on 08/15/18 08:22; Admin Dose 10 GM; Start 07/19/18 at 09:00 Diphenhydramine HCl (Benadryl) 25 mg Q8H PRN IV PRURITUS/ITCHING Last administered on 08/04/18 07:15; Admin Dose 25 MG; Start 07/20/18 at 18:30 Morphine Sulfate (morphine) 6 mg Q4H PRN PO SEVERE PAIN LEVEL 7-10 Last administered on 08/05/18 05:23; Admin Dose 6 MG; Start 07/20/18 at 23:30 Nystatin (Nystatin Powder) 1 applic BID TOP Last administered on 08/15/18 08:28; Admin Dose 1 APPLIC; Start 07/25/18 at 21:00 Nystatin (Nystatin Oint) 1 applic TID TOP Last administered on 08/16/18 12:34; Admin Dose 1 APPLIC; Start 07/27/18 at 21:00 Hydromorphone HCl (Dilaudid) 1 mg Q3H PRN IV SEVERE PAIN LEVEL 7-10 Last administered on 08/16/18 14:23; Admin Dose 1 MG; Start 07/30/18 at 13:00 Ondansetron HCl (Zofran Odt) 8 mg Q6H PRN ODT NAUSEA AND/OR VOMITING Last administered on 08/16/18 14:22; Admin Dose 8 MG; Start 08/09/18 at 16:00 Spironolactone (Aldactone) 100 mg BID DIURETICS PO Last administered on 08/15/18at 17:26; Admin Dose 100 MG; Start 08/11/18 at 06:00 Trazodone HCl (Desyrel) 100 mg HS PRN PO insomnia Last administered on 08/15/18at 21:28; Admin Dose 100 MG; Start 08/14/18 at 12:00 Levofloxacin (Levaquin) 500 mg DAILY@06 PO ; Start 08/16/18 at 06:00 Miscellaneous Information (*Order Clarification Bulletin) MEDICATION REQUIRES CLARIFICATI... Q8H XX ; Start 08/15/18 at 16:00 Furosemide (Lasix) 20 mg DAILY GTB ; Start 08/16/18 at 09:00 Hydromorphone HCl (Dilaudid) 0.2 mg PACU PRN IV MILD PAIN 1-3; Start 08/16/18 at 08:00; Stop 08/16/18 at 17:00 Hydromorphone HCl (Dilaudid) 0.4 mg PACU PRN IV MOD PAIN 4-6; Start 08/16/18 at 08:00; Stop 08/16/18 at 17:00 Fentanyl (Sublimaze) 25 mcg PACU ORDER PRN IV MILD PAIN 1-3; Start 08/16/18 at 08:00; Stop 08/16/18 at 17:00 Fentanyl (Sublimaze) 50 mcg PACU ORDER PRN IV MOD PAIN 4-6; Start 08/16/18 at 08:00; Stop 08/16/18 at 17:00 Ondansetron HCl (Zofran Inj) 4 mg PACU ORDER PRN IV NAUSEA/VOMITING; Start 08/16/18 at 08:00; Stop 08/16/18 at 17:00 Albumin Human 250 ml @ 750 mls/hr PACU ORDER PRN IV BP SUPPORT; Start 08/16/18 at 08:00; Stop 08/16/18 at 17:00 Levalbuterol (Xopenex Neb) 1.25 mg PACU ORDER PRN HHN .WHEEZING; Start 08/16/18 at 08:00; Stop 08/16/18 at 17:00 Ipratropium [place] (Atrovent 0.02% (Neb)) 0.5 mg PACU ORDER PRN HHN .WHEEZING; Start 08/16/18 at 08:00; Stop 08/16/18 at 17:00 Meperidine HCl (Demerol) 25 mg PACU ORDER PRN IV .RIGORS; Start 08/16/18 at 08:00; Stop 08/16/18 at 17:00 Diphenhydramine HCl (Benadryl) 25 mg PACU ORDER PRN IV .PRURITUS; Start 08/16/18 at 08:00; Stop 08/16/18 at 17:00 Lorazepam (Ativan) 1 mg PACU ORDER PRN IV .ANXIETY; Start 08/16/18 at 08:00; Stop 08/16/18 at 17:00 Midazolam HCl (Versed) 0.5 mg PACU ORDER PRN IV .ANXIETY; Start 08/16/18 at 08:00; Stop 08/16/18 at 17:00 ANA SPICER Aug 16, 2018 15:03
--- NOTE | 2018-08-16 19:02 | CONS ---
Assessment/Plan Assessment/Plan Assessment/Plan (Daily) Assessment/Plan (Daily) 1. Alcoholic Cirrhosis of liver. -on transplant list at [facility] -AFP wnl 2. Anemia of chronic disease. 3. Pancytopenia secondary to #1 4. 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 5. Cellulitis, status post skin graft and wound VAC. -K. pneumoniae and coagulase neg staph in wound -followed by podiatry 6. Clostridium difficile colitis. -resolved 7. SBP -resolved, treatment complete 8. S/P colonoscopy 08/04 found diverticulosis and external hemorrhoids 9. S/P EGD 08/04 shows congestive gastropathy, esophageal varices 10. Anasarca -on aldactone 50 mg BID PO US of abd 08/01: 1. Coarse nodular liver consistent with cirrhosis. No focal hepatic masses. 2. Status post cholecystectomy. No biliary duct dilatation. 3. Patent portal vein with pulsatile hepatopetal flow. 4. Suspect portal hypertension as demonstrated by moderate ascites. 5. Moderate size right pleural effusion as well. 6. Increased right renal cortical echogenicity suggest medical renal disease PLAN: Continue Aldactone 100 mg p.o. twice daily Salt restriction with fluid restriction Continue present care Paracentesis as needed Monitor for GI bleeding High fiber diet Podiatry following, plan for skin graft Add lasix 20 mg Patient's input output is not recorded at all Consultation Date/Type/Reason Admit Date/Time Jul 04, 2018 at 14:22 Initial Consult Date 07/07/18 Requesting Provider: ANA SPICER Date/Time of Note DATE: 08/16/18 TIME: 19:02 24 HR Interval Summary Constitutional: no complaints, improved Exam/Review of Systems Exam Vitals Vital Signs Date Temp Pulse Resp B/P (MAP) Pulse Ox O2 O2 Flow FiO2 Time Delivery Rate 08/16/18 98.6 74 18 105/55 96 14:00 (72) 08/16/18 Nasal 2.0 10:14 Cannula Intake and Output 08/15/18 08/15/18 08/16/18 1515:00 23:00 07:00 IntakeIntake Total 350 ml 275 ml OutputOutput Total 3700 ml BalanceBalance -3350 ml 275 ml Constitutional: alert, oriented, well developed Psych: no complaints, nl mood/affect Head: normocephalic, atraumatic Eyes: nl conjunctiva, EOMI, nl lids, nl sclera, PERRL ENMT: nl external ears & nose, nl lips & teeth, nl nasal mucosa & septum Neck: supple, non-tender Respiratory: clear to auscultation, normal air movement Cardiovascular: regular rate and rhythm, nl pulses Gastrointestinal: soft, nl liver, spleen, non-tender Musculoskeletal: nl extremities to inspection, nl gait and stance Extremities: normal pulses 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: 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 FLOW 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 II-XII 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, nl mental status, nl speech, nl strength Skin: nl turgor; No rash or lesions Lymph: nl lymph nodes Results Result Diagram: 08/15/18 0449 08/16/18 0618 Results 24hrs Laboratory Tests Test 08/16/18 06:16 08/16/18 06:18 Serum HCG, Qualitative NEGATIVE Sodium Level 137 Potassium Level 4.0 Chloride Level 105 Carbon Dioxide Level 25 Anion Gap 7 Blood Urea Nitrogen 5 L Creatinine 0.47 Est Glomerular Filtrat Rate mL/min > 60 Glucose Level 89 Calcium Level 7.8 L Total Bilirubin 4.6 H Direct Bilirubin 0.40 H Indirect Bilirubin 4.2 H Aspartate Amino Transf (AST/SGOT) 40 Alanine Aminotransferase (ALT/SGPT) 35 Alkaline Phosphatase 106 Total Protein 4.6 L Albumin 1.9 L Globulin 2.70 Albumin/Globulin Ratio 0.70 Medications Medication Current Medications IV Flush (NS 3 ml) 3 ml PER PROTOCOL IV Last administered on 07/26/18at 20:08; Admin Dose 3 ML; Start 07/04/18 at 18:30 Docusate Sodium (Colace) 100 mg Q12H PRN PO .CONSTIPATION Last administered on 08/16/18at 14:09; Admin Dose 100 MG; Start 07/04/18 at 18:30 Albuterol (Proventil 0.083% (Neb)) 2.5 mg Q4H RESP THERAPY PRN HHN SHORTNESS OF BREATH; Start 07/04/18 at 18:30 Metoclopramide HCl (Reglan) 5 mg Q6H PRN IV NAUSEA Last administered on 08/16/18at 17:52; Admin Dose 5 MG; Start 07/05/18 at 10:00 Midodrine (Proamatine) 10 mg TID PO Last administered on 08/16/18at 12:35; Admin Dose 10 MG; Start 07/06/18 at 09:00 Albuterol (Ventolin Hfa) 2 puff Q4 INH Last administered on 08/16/18 17:53; Admin Dose 2 PUFF; Start 07/06/18 at 04:30 Rifaximin (Xifaxan) 200 mg TID PO Last administered on 08/16/18 12:34; Admin Dose 200 MG; Start 07/09/18 at 21:00 Sodium Hypochlorite (Dakin'S (Dilute )) 1 applic DAILY IRR Last administered on 08/15/18 08:28; Admin Dose 1 APPLIC; Start 07/15/18 at 23:45 Simethicone (Mylicon) 80 mg Q6H PRN PO DISTENSION/GAS/BLOATING Last administered on 08/16/18 14:22; Admin Dose 80 MG; Start 07/16/18 at 15:30 Lactulose (Enulose) 10 gm DAILY PO Last administered on 08/15/18 08:22; Admin Dose 10 GM; Start 07/19/18 at 09:00 Diphenhydramine HCl (Benadryl) 25 mg Q8H PRN IV PRURITUS/ITCHING Last administered on 08/04/18 07:15; Admin Dose 25 MG; Start 07/20/18 at 18:30 Morphine Sulfate (morphine) 6 mg Q4H PRN PO SEVERE PAIN LEVEL 7-10 Last administered on 08/05/18 05:23; Admin Dose 6 MG; Start 07/20/18 at 23:30 Nystatin (Nystatin Powder) 1 applic BID TOP Last administered on 08/15/18 08:28; Admin Dose 1 APPLIC; Start 07/25/18 at 21:00 Nystatin (Nystatin Oint) 1 applic TID TOP Last administered on 08/16/18 12:34; Admin Dose 1 APPLIC; Start 07/27/18 at 21:00 Hydromorphone HCl (Dilaudid) 1 mg Q3H PRN IV SEVERE PAIN LEVEL 7-10 Last administered on 08/16/18 17:53; Admin Dose 1 MG; Start 07/30/18 at 13:00 Ondansetron HCl (Zofran Odt) 8 mg Q6H PRN ODT NAUSEA AND/OR VOMITING Last administered on 08/16/18 14:22; Admin Dose 8 MG; Start 08/09/18 at 16:00 Spironolactone (Aldactone) 100 mg BID DIURETICS PO Last administered on 08/16/18at 17:53; Admin Dose 100 MG; Start 08/11/18 at 06:00 Trazodone HCl (Desyrel) 100 mg HS PRN PO insomnia Last administered on 08/15/18at 21:28; Admin Dose 100 MG; Start 08/14/18 at 12:00 Levofloxacin (Levaquin) 500 mg DAILY@06 PO ; Start 08/16/18 at 06:00 Miscellaneous Information (*Order Clarification Bulletin) MEDICATION REQUIRES CLARIFICATI... Q8H XX ; Start 08/15/18 at 16:00 Furosemide (Lasix) 20 mg DAILY GTB ; Start 08/16/18 at 09:00 TRISTIAN NAIDU MD Aug 16, 2018 19:02
[2018-08-16] MEDS: traZODone 100 MG TAB PO PRN (23:47)
[2018-08-17] MEDS: ALBUTEROL HFA 8 GM INHALER INH SCH ×6 (00:42→21:58)
[2018-08-17] MEDS: METOCLOPRAMIDE 10 MG INJ IV PRN ×4 (00:42→21:54)
[2018-08-17] MEDS: HYDROmorphONE 1 MG/ML SYG IV PRN ×7 (00:42→21:55)
[2018-08-17 02:00] VITALS: BP 109/55; PULSE 86; RESP 18
[2018-08-17] MEDS: ONDANSETRON (ODT) 4 MG TAB ODT PRN ×3 (05:03→18:44)
[2018-08-17] MEDS: SPIRONOLACTONE 50 MG TAB PO SCH ×2 (06:05→18:44)
[2018-08-17] MEDS: LEVOFLOXACIN 500 MG TAB PO SCH (06:05)
--- NOTE | 2018-08-17 07:01 | CONS ---
Assessment/Plan Assessment/Plan Hospital Course (Demo Recall) 48 yo female with h/o ESLD waiting for liver transplant presents with left foot cellulitis Interval hx: Pt has not had bm since 08/10. c/o nausea for last few days. had skin graft done yesterday to left foot. Denies abd pain, less pressure since paracentesis. 1. Alcoholic Cirrhosis of liver. -on transplant list at [facility] -AFP wnl 2. Anemia of chronic disease. 3. Pancytopenia secondary to #1 4. 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 5. Cellulitis, status post skin graft and wound VAC. -K. pneumoniae and coagulase neg staph in wound -followed by podiatry 6. Clostridium difficile colitis. -resolved 7. SBP -resolved, treatment complete 8. S/P colonoscopy 08/04 found diverticulosis and external hemorrhoids 9. S/P EGD 08/04 shows congestive gastropathy, esophageal varices 10. Anasarca -on aldactone 50 mg BID PO US of abd 08/01: 1. Coarse nodular liver consistent with cirrhosis. No focal hepatic masses. 2. Status post cholecystectomy. No biliary duct dilatation. 3. Patent portal vein with pulsatile hepatopetal flow. 4. Suspect portal hypertension as demonstrated by moderate ascites. 5. Moderate size right pleural effusion as well. 6. Increased right renal cortical echogenicity suggest medical renal disease PLAN: PRN reglan for nausea Start amitiza 24 mcg BID and dulcolax supp x 1 Continue Aldactone 100 mg p.o. twice daily and lasix 20 mg QD Salt restriction with fluid restriction Continue present care Paracentesis as needed Monitor for GI bleeding High fiber diet Podiatry following, plan for skin graft Pt examined and plan of care discussed with Dr. Gómez Consultation Date/Type/Reason Admit Date/Time Jul 04, 2018 at 14:22 Initial Consult Date 07/07/18 Requesting Provider: ANA SPICER Date/Time of Note DATE: 08/17/18 TIME: 06:59 Exam/Review of Systems Exam Vitals Vital Signs Date Temp Pulse Resp B/P (MAP) Pulse Ox O2 O2 Flow FiO2 Time Delivery Rate 08/17/18 98.2 86 18 109/55 96 02:00 (73) 08/16/18 Nasal 2.0 10:14 Cannula Intake and Output 08/16/18 08/16/18 08/17/18 1515:00 23:00 07:00 IntakeIntake Total 1000 ml OutputOutput Total 10 ml BalanceBalance 990 ml Results Result Diagram: 08/15/18 0449 08/17/18 0535 Results 24hrs Laboratory Tests Test 08/17/18 05:35 Sodium Level 135 Potassium Level 4.1 Chloride Level 101 Carbon Dioxide Level 24 Anion Gap 10 Blood Urea Nitrogen 10 Creatinine 0.42 L Est Glomerular Filtrat Rate mL/min > 60 Glucose Level 138 # Calcium Level 8.7 Total Bilirubin 5.6 H Direct Bilirubin 0.20 # Indirect Bilirubin 5.4 H Aspartate Amino Transf (AST/SGOT) 41 Alanine Aminotransferase (ALT/SGPT) 33 Alkaline Phosphatase 98 Total Protein 5.6 #L Albumin 2.5 L Globulin 3.10 Albumin/Globulin Ratio 0.80 Medications Medication Current Medications IV Flush (NS 3 ml) 3 ml PER PROTOCOL IV Last administered on 07/26/18 20:08; Admin Dose 3 ML; Start 07/04/18 at 18:30 Docusate Sodium (Colace) 100 mg Q12H PRN PO .CONSTIPATION Last administered on 08/16/18 14:09; Admin Dose 100 MG; Start 07/04/18 at 18:30 Albuterol (Proventil 0.083% (Neb)) 2.5 mg Q4H RESP THERAPY PRN HHN SHORTNESS OF BREATH; Start 07/04/18 at 18:30 Metoclopramide HCl (Reglan) 5 mg Q6H PRN IV NAUSEA Last administered on 08/17/18 00:42; Admin Dose 5 MG; Start 07/05/18 at 10:00 Midodrine (Proamatine) 10 mg TID PO Last administered on 08/16/18 21:35; Admin Dose 10 MG; Start 07/06/18 at 09:00 Albuterol (Ventolin Hfa) 2 puff Q4 INH Last administered on 08/17/18 06:06; Admin Dose 2 PUFF; Start 07/06/18 at 04:30 Rifaximin (Xifaxan) 200 mg TID PO Last administered on 08/16/18 21:35; Admin Dose 200 MG; Start 07/09/18 at 21:00 Sodium Hypochlorite (Dakin'S (Dilute 1/40)) 1 applic DAILY IRR Last administered on 08/15/18 08:28; Admin Dose 1 APPLIC; Start 07/15/18 at 23:45 Simethicone (Mylicon) 80 mg Q6H PRN PO DISTENSION/GAS/BLOATING Last admi nistered on 08/17/18 00:53; Admin Dose 80 MG; Start 07/16/18 at 15:30 Lactulose (Enulose) 10 gm DAILY PO Last administered on 08/15/18 08:22; Admin Dose 10 GM; Start 07/19/18 at 09:00 Diphenhydramine HCl (Benadryl) 25 mg Q8H PRN IV PRURITUS/ITCHING Last administered on 08/04/18 07:15; Admin Dose 25 MG; Start 07/20/18 at 18:30 Morphine Sulfate (morphine) 6 mg Q4H PRN PO SEVERE PAIN LEVEL 7-10 Last administered on 08/05/18 05:23; Admin Dose 6 MG; Start 07/20/18 at 23:30 Nystatin (Nystatin Powder) 1 applic BID TOP Last administered on 08/16/18 21:35; Admin Dose 1 APPLIC; Start 07/25/18 at 21:00 Nystatin (Nystatin Oint) 1 applic TID TOP Last administered on 08/16/18 21:35; Admin Dose 1 APPLIC; Start 07/27/18 at 21:00 Hydromorphone HCl (Dilaudid) 1 mg Q3H PRN IV SEVERE PAIN LEVEL 7-10 Last administered on 08/17/18 05:03; Admin Dose 1 MG; Start 07/30/18 at 13:00 Ondansetron HCl (Zofran Odt) 8 mg Q6H PRN ODT NAUSEA AND/OR VOMITING Last administered on 08/17/18 05:03; Admin Dose 8 MG; Start 08/09/18 at 16:00 Spironolactone (Aldactone) 100 mg BID DIURETICS PO Last administered on 08/17/18 06:05; Admin Dose 100 MG; Start 08/11/18 at 06:00 Trazodone HCl (Desyrel) 100 mg HS PRN PO insomnia Last administered on 08/16/18 23:47; Admin Dose 100 MG; Start 08/14/18 at 12:00 Levofloxacin (Levaquin) 500 mg DAILY@06 PO Last administered on 08/17/18at 06:05; Admin Dose 500 MG; Start 08/16/18 at 06:00 Miscellaneous Information (*Order Clarification Bulletin) MEDICATION REQUIRES CLARIFICATI... Q8H XX ; Start 08/15/18 at 16:00 Furosemide (Lasix) 20 mg DAILY GTB ; Start 08/16/18 at 09:00 SARA EISENBERG Aug 17, 2018 07:01
[2018-08-17 08:00] VITALS: BP 99/55; PULSE 72; RESP 20
[2018-08-17] MEDS: FUROSEMIDE 20 MG TAB GTB SCH (08:15)
[2018-08-17] MEDS: MIDODRINE 5 MG TAB PO SCH ×3 (08:15→20:21)
[2018-08-17] MEDS: RIFAXIMIN 200 MG TAB PO SCH ×3 (08:16→22:13)
[2018-08-17] MEDS: LACTULOSE 30ML CUP PO SCH (08:16)
[2018-08-17] MEDS: NYSTATIN 15 GM OINT TOP SCH ×3 (08:23→21:59)
[2018-08-17] MEDS: SODIUM HYPOCHLORITE (1/40) 1 APPLIC BTL IRR SCH (08:23)
[2018-08-17] MEDS: NYSTATIN 30 GM POWDER BTL TOP SCH ×2 (08:24→21:59)
[2018-08-17] MEDS ORDERED: BISACODYL 10 MG SUPP PR ONE (09:30)
[2018-08-17 14:00] VITALS: BP 99/61; PULSE 64; RESP 20
--- NOTE | 2018-08-17 14:05 | CONS ---
Assessment/Plan Assessment/Plan Hospital Course (Demo Recall) Alert, feels good, no fevers Microbiology: Blood culture on admission grew Klebsiella pneumonia on July 04 susceptible to Cipro and Levaquin, stool for C. difficile positive, urine culture negative MRSA swab negative, L foot wound culture grew Klebsiella pneumoniae susceptible to ming quinolones and staph species. Repeat left foot wound culture growing coag negative staph species Physical examination: Chronically ill-appearing middle-aged woman who is in no distress. Head atraumatic normocephalic sclera nonicteric vehicle mucosa dry neck is supple chest rise symmetrical breath sounds diminished at bases. Heart: S1-S2. Abdomen soft bowel sounds present extremities with bilateral edema, left lower extremity dressing intact Assessment: 1. S/p sepsis with Klebsiella pneumonia bacteremia likely secondary to SBP vs #2 2. Left lower extremity abscess/ cellulitis==> neg OM, s/p i/d 07/18/18 with wound vac, s/p skin graft 08/16/18 3. C. difficile colitis==> treated 4. Alcoholic liver cirrhosis==> on tx list at [facility] 5. Recurrent ascites s/p multiple paracentesis 6. Anemia and thrombocytopenia Plan: Remains stable, continue Levaquin for 5 more days Consultation Date/Type/Reason Admit Date/Time Jul 04, 2018 at 14:22 Initial Consult Date 07/07/18 Type of Consult id Requesting Provider: ANA SPICER Date/Time of Note DATE: 08/17/18 TIME: 14:05 Exam/Review of Systems Exam Vitals Vital Signs Date Temp Pulse Resp B/P (MAP) Pulse Ox O2 O2 Flow FiO2 Time Delivery Rate 08/17/18 97.6 72 20 99/55 (70) 96 08:00 08/16/18 Nasal 2.0 10:14 Cannula Intake and Output 08/16/18 08/16/18 08/17/18 1515:00 23:00 07:00 IntakeIntake Total 1000 ml OutputOutput Total 10 ml BalanceBalance 990 ml Results Result Diagram: 08/15/18 0449 08/17/18 0535 Results 24hrs Laboratory Tests Test 08/17/18 05:35 Sodium Level 135 Potassium Level 4.1 Chloride Level 101 Carbon Dioxide Level 24 Anion Gap 10 Blood Urea Nitrogen 10 Creatinine 0.42 L Est Glomerular Filtrat Rate mL/min > 60 Glucose Level 138 # Calcium Level 8.7 Total Bilirubin 5.6 H Direct Bilirubin 0.20 # Indirect Bilirubin 5.4 H Aspartate Amino Transf (AST/SGOT) 41 Alanine Aminotransferase (ALT/SGPT) 33 Alkaline Phosphatase 98 Total Protein 5.6 #L Albumin 2.5 L Globulin 3.10 Albumin/Globulin Ratio 0.80 Medications Medication Current Medications IV Flush (NS 3 ml) 3 ml PER PROTOCOL IV Last administered on 07/26/18 20:08; Admin Dose 3 ML; Start 07/04/18 at 18:30 Docusate Sodium (Colace) 100 mg Q12H PRN PO .CONSTIPATION Last administered on 08/16/18 14:09; Admin Dose 100 MG; Start 07/04/18 at 18:30 Albuterol (Proventil 0.083% (Neb)) 2.5 mg Q4H RESP THERAPY PRN HHN SHORTNESS OF BREATH; Start 07/04/18 at 18:30 Metoclopramide HCl (Reglan) 5 mg Q6H PRN IV NAUSEA Last administered on 08/17/18 08:20; Admin Dose 5 MG; Start 07/05/18 at 10:00 Midodrine (Proamatine) 10 mg TID PO Last administered on 08/17/18 08:15; Admin Dose 10 MG; Start 07/06/18 at 09:00 Albuterol (Ventolin Hfa) 2 puff Q4 INH Last administered on 08/17/18 08:19; Admin Dose 2 PUFF; Start 07/06/18 at 04:30 Rifaximin (Xifaxan) 200 mg TID PO Last administered on 08/17/18 08:16; Admin Dose 200 MG; Start 07/09/18 at 21:00 Sodium Hypochlorite (Dakin'S (Dilute 140)) 1 applic DAILY IRR Last administered on 08/15/18 08:28; Admin Dose 1 APPLIC; Start 07/15/18 at 23:45 Simethicone (Mylicon) 80 mg Q6H PRN PO DISTENSION/GAS/BLOATING Last administered on 08/17/18 00:53; Admin Dose 80 MG; Start 07/16/18 at 15:30 Lactulose (Enulose) 10 gm DAILY PO Last administered on 08/17/18 08:16; Admin Dose 10 GM; Start 07/19/18 at 09:00 Diphenhydramine HCl (Benadryl) 25 mg Q8H PRN IV PRURITUS/ITCHING Last administered on 08/04/18 07:15; Admin Dose 25 MG; Start 07/20/18 at 18:30 Morphine Sulfate (morphine) 6 mg Q4H PRN PO SEVERE PAIN LEVEL 7-10 Last administered on 08/05/18 05:23; Admin Dose 6 MG; Start 07/20/18 at 23:30 Nystatin (Nystatin Powder) 1 applic BID TOP Last administered on 08/17/18 08:24; Admin Dose 1 APPLIC; Start 07/25/18 at 21:00 Nystatin (Nystatin Oint) 1 applic TID TOP Last administered on 08/17/18 08:23; Admin Dose 1 APPLIC; Start 07/27/18 at 21:00 Hydromorphone HCl (Dilaudid) 1 mg Q3H PRN IV SEVERE PAIN LEVEL 7-10 Last administered on 08/17/18 12:08; Admin Dose 1 MG; Start 07/30/18 at 13:00 Ondansetron HCl (Zofran Odt) 8 mg Q6H PRN ODT NAUSEA AND/OR VOMITING Last administered on 08/17/18 12:08; Admin Dose 8 MG; Start 08/09/18 at 16:00 Spironolactone (Aldactone) 100 mg BID DIURETICS PO Last administered on 08/17/18 06:05; Admin Dose 100 MG; Start 08/11/18 at 06:00 Trazodone HCl (Desyrel) 100 mg HS PRN PO insomnia Last administered on 08/16/18 23:47; Admin Dose 100 MG; Start 08/14/18 at 12:00 Levofloxacin (Levaquin) 500 mg DAILY@06 PO Last administered on 08/17/18 06:05; Admin Dose 500 MG; Start 08/16/18 at 06:00 Miscellaneous Information (*Order Clarification Bulletin) MEDICATION REQUIRES CLARIFICATI... Q8H XX ; Start 08/15/18 at 16:00 Furosemide (Lasix) 20 mg DAILY GTB Last administered on 08/17/18 08:15; Admin Dose 20 MG; Start 08/16/18 at 09:00 Lubiprostone (Amitiza) 24 mcg BID PO ; Start 08/17/18 at 21:00 EMA MEULLER NP Aug 17, 2018 14:05
--- NOTE | 2018-08-17 19:08 | PN ---
Date/Time of Note Date/Time of Note DATE: 08/17/18 TIME: 19:08 Assessment/Plan VTE Prophylaxis Risk score (from Nsg)>0 risk: 4 Pharmacological prophylaxis: NA/contraindicated Pharm contraindication: liver dx Lines/Catheters IV Catheter Type (from Nrsg): Mid Line Urinary Cath still in place: No Assessment/Plan Hospital Course 1. Left foot wound s/p debridement with wound VAC- stable - Podiatry on board and appreciate recommendations, skin graft done today - s/p skin allograft and wound vac placement 07/27/18 - MRI foot shows no evidence of OM - Completed course of antibiotics 2. SBP with klebsiella bacteremia: - finished course of antibiotics - last culture from paracentesis negative 3. Cirrhosis with ascites - Status post paracentesis x 7 - Continue current increased dose of Aldactone 100mg BID. Will hold off on Lasix given low BP - Continue rifaximin/lactulose - has follow up with Dr. Gómez as outpatient, liver transplant preop EGD and colonoscopy shows nonbleeding varices and diverticulosis 4. Anemia - most likely 2/2 liver dz 5. Acute kidney injury likely secondary to hemodynamics and intravascular volume depletion-resolved - Nephrology consultation appreciated 6. Anemia of chronic disease - stable 7. C Diff diarrhea - s/p PO vanco course - resolving - repeat ordered but given on Lactulose, lab will not process sample 8. Left breast implant rupture - MRI ordered but patient unable to undergo until can walk - patient has had saline implant in for the past 20 years. Has had issues with it in the past given behind the muscle 9. Disposition - Pending SNF placement Result Diagram: 08/15/18 0449 08/17/18 0535 Results 24hrs Laboratory Tests Test 08/17/18 05:35 Sodium Level 135 Potassium Level 4.1 Chloride Level 101 Carbon Dioxide Level 24 Anion Gap 10 Blood Urea Nitrogen 10 Creatinine 0.42 L Est Glomerular Filtrat Rate mL/min > 60 Glucose Level 138 # Calcium Level 8.7 Total Bilirubin 5.6 H Direct Bilirubin 0.20 # Indirect Bilirubin 5.4 H Aspartate Amino Transf (AST/SGOT) 41 Alanine Aminotransferase (ALT/SGPT) 33 Alkaline Phosphatase 98 Total Protein 5.6 #L Albumin 2.5 L Globulin 3.10 Albumin/Globulin Ratio 0.80 Subjective 24 Hr Interval Summary Constitutional: no complaints Exam/Review of Systems Exam Vitals Vital Signs Date Temp Pulse Resp B/P (MAP) Pulse Ox O2 O2 Flow FiO2 Time Delivery Rate 08/17/18 98.6 64 20 99/61 (74) 96 14:00 08/16/18 Nasal 2.0 10:14 Cannula Intake and Output 08/16/18 08/16/18 08/17/18 1515:00 23:00 07:00 IntakeIntake Total 1000 ml OutputOutput Total 10 ml BalanceBalance 990 ml Constitutional: alert, oriented Respiratory: clear to auscultation Cardiovascular: regular rate and rhythm Gastrointestinal: soft; No distended Musculoskeletal: nl extremities to inspection Results Results 24hrs Laboratory Tests Test 08/17/18 05:35 Sodium Level 135 Potassium Level 4.1 Chloride Level 101 Carbon Dioxide Level 24 Anion Gap 10 Blood Urea Nitrogen 10 Creatinine 0.42 L Est Glomerular Filtrat Rate mL/min > 60 Glucose Level 138 # Calcium Level 8.7 Total Bilirubin 5.6 H Direct Bilirubin 0.20 # Indirect Bilirubin 5.4 H Aspartate Amino Transf (AST/SGOT) 41 Alanine Aminotransferase (ALT/SGPT) 33 Alkaline Phosphatase 98 Total Protein 5.6 #L Albumin 2.5 L Globulin 3.10 Albumin/Globulin Ratio 0.80 Medications Medication Current Medications IV Flush (NS 3 ml) 3 ml PER PROTOCOL IV Last administered on 07/26/18at 20:08; Admin Dose 3 ML; Start 07/04/18 at 18:30 Docusate Sodium (Colace) 100 mg Q12H PRN PO .CONSTIPATION Last administered on 08/16/18 14:09; Admin Dose 100 MG; Start 07/04/18 at 18:30 Albuterol (Proventil 0.083% (Neb)) 2.5 mg Q4H RESP THERAPY PRN HHN SHORTNESS OF BREATH; Start 07/04/18 at 18:30 Metoclopramide HCl (Reglan) 5 mg Q6H PRN IV NAUSEA Last administered on 08/17/18 15:54; Admin Dose 5 MG; Start 07/05/18 at 10:00 Midodrine (Proamatine) 10 mg TID PO Last administered on 08/17/18at 16:00; Admin Dose 10 MG; Start 07/06/18 at 09:00 Albuterol (Ventolin Hfa) 2 puff Q4 INH Last administered on 08/17/18 18:44; Admin Dose 2 PUFF; Start 07/06/18 at 04:30 Rifaximin (Xifaxan) 200 mg TID PO Last administered on 08/17/18 16:00; Admin Dose 200 MG; Start 07/09/18 at 21:00 Sodium Hypochlorite (Dakin'S (Dilute )) 1 applic DAILY IRR Last administered on 08/15/18 08:28; Admin Dose 1 APPLIC; Start 07/15/18 at 23:45 Simethicone (Mylicon) 80 mg Q6H PRN PO DISTENSION/GAS/BLOATING Last administered on 08/17/18 15:54; Admin Dose 80 MG; Start 07/16/18 at 15:30 Lactulose (Enulose) 10 gm DAILY PO Last administered on 08/17/18 08:16; Admin Dose 10 GM; Start 07/19/18 at 09:00 Diphenhydramine HCl (Benadryl) 25 mg Q8H PRN IV PRURITUS/ITCHING Last administered on 08/04/18 07:15; Admin Dose 25 MG; Start 07/20/18 at 18:30 Morphine Sulfate (morphine) 6 mg Q4H PRN PO SEVERE PAIN LEVEL 7-10 Last administered on 08/05/18 05:23; Admin Dose 6 MG; Start 07/20/18 at 23:30 Nystatin (Nystatin Powder) 1 applic BID TOP Last administered on 08/17/18 08:24; Admin Dose 1 APPLIC; Start 07/25/18 at 21:00 Nystatin (Nystatin Oint) 1 applic TID TOP Last administered on 08/17/18 16:02; Admin Dose 1 APPLIC; Start 07/27/18 at 21:00 Hydromorphone HCl (Dilaudid) 1 mg Q3H PRN IV SEVERE PAIN LEVEL 7-10 Last administered on 08/17/18 18:48; Admin Dose 1 MG; Start 07/30/18 at 13:00 Ondansetron HCl (Zofran Odt) 8 mg Q6H PRN ODT NAUSEA AND/OR VOMITING Last administered on 08/17/18 18:44; Admin Dose 8 MG; Start 08/09/18 at 16:00 Spironolactone (Aldactone) 100 mg BID DIURETICS PO Last administered on 08/17/18at 18:44; Admin Dose 100 MG; Start 08/11/18 at 06:00 Trazodone HCl (Desyrel) 100 mg HS PRN PO insomnia Last administered on 08/16/18at 23:47; Admin Dose 100 MG; Start 08/14/18 at 12:00 Levofloxacin (Levaquin) 500 mg DAILY@06 PO Last administered on 08/17/18at 06:05; Admin Dose 500 MG; Start 08/16/18 at 06:00 Miscellaneous Information (*Order Clarification Bulletin) MEDICATION REQUIRES CLARIFICATI... Q8H XX ; Start 08/15/18 at 16:00 Furosemide (Lasix) 20 mg DAILY GTB Last administered on 08/17/18at 08:15; Admin Dose 20 MG; Start 08/16/18 at 09:00 Lubiprostone (Amitiza) 24 mcg BID PO ; Start 08/17/18 at 21:00 ANA SPICER Aug 17, 2018 19:08
[2018-08-17 20:00] VITALS: BP 98/55; PULSE 81; RESP 18
[2018-08-17] MEDS: LUBIPROSTONE 24 MCG CAP PO SCH (20:21)
[2018-08-17] MEDS: traZODone 100 MG TAB PO PRN (20:22)
[2018-08-18] MEDS: ONDANSETRON (ODT) 4 MG TAB ODT PRN ×4 (00:55→20:02)
[2018-08-18] MEDS: HYDROmorphONE 1 MG/ML SYG IV PRN ×8 (00:55→23:25)
[2018-08-18] MEDS: ALBUTEROL HFA 8 GM INHALER INH SCH ×6 (01:00→21:29)
[2018-08-18 02:00] VITALS: BP 95/54; PULSE 82; RESP 18
[2018-08-18] MEDS: METOCLOPRAMIDE 10 MG INJ IV PRN ×4 (03:57→23:25)
[2018-08-18] MEDS: SPIRONOLACTONE 50 MG TAB PO SCH ×2 (06:48→16:54)
[2018-08-18] MEDS: LEVOFLOXACIN 500 MG TAB PO SCH (06:49)
--- NOTE | 2018-08-18 07:44 | CONS ---
Assessment/Plan Assessment/Plan Hospital Course (Demo Recall) 48 yo female with h/o ESLD waiting for liver transplant presents with left foot cellulitis Interval hx: Pt has not had bm since 08/10. Still no bm. She was started on amitiza. She refused dulcolax [place], will change to PO. Nausea improved. Denies abd pain, less pressure since paracentesis. 1. Alcoholic Cirrhosis of liver. -on transplant list at [facility] -AFP wnl 2. Anemia of chronic disease. 3. Pancytopenia secondary to #1 4. 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 5. Cellulitis, status post skin graft and wound VAC. -K. pneumoniae and coagulase neg staph in wound -followed by podiatry 6. Clostridium difficile colitis. -resolved 7. SBP -resolved, treatment complete 8. S/P colonoscopy 08/04 found diverticulosis and external hemorrhoids 9. S/P EGD 08/04 shows congestive gastropathy, esophageal varices 10. Anasarca -on aldactone 50 mg BID PO US of abd 08/01: 1. Coarse nodular liver consistent with cirrhosis. No focal hepatic masses. 2. Status post cholecystectomy. No biliary duct dilatation. 3. Patent portal vein with pulsatile hepatopetal flow. 4. Suspect portal hypertension as demonstrated by moderate ascites. 5. Moderate size right pleural effusion as well. 6. Increased right renal cortical echogenicity suggest medical renal disease PLAN: PRN reglan for nausea Start amitiza 24 mcg BID and dulcolax PO x 1, miralax Continue Aldactone 100 mg p.o. twice daily and lasix 20 mg QD Salt restriction with fluid restriction Continue present care Paracentesis as needed Monitor for GI bleeding High fiber diet Podiatry following, plan for skin graft Pt examined and plan of care discussed with Dr. Gómez Consultation Date/Type/Reason Admit Date/Time Jul 04, 2018 at 14:22 Initial Consult Date 07/07/18 Requesting Provider: ANA SPICER Date/Time of Note DATE: 08/18/18 TIME: 07:43 Exam/Review of Systems Exam Vitals Vital Signs Date Temp Pulse Resp B/P (MAP) Pulse Ox O2 O2 Flow FiO2 Time Delivery Rate 08/18/18 98.2 82 18 95/54 (68) 97 02:00 08/16/18 Nasal 2.0 10:14 Cannula Intake and Output 08/17/18 08/17/18 08/18/18 1515:00 23:00 07:00 IntakeIntake Total 700 ml 240 ml BalanceBalance 700 ml 240 ml Results Result Diagram: 08/15/18 0449 08/17/18 0535 Medications Medication Current Medications IV Flush (NS 3 ml) 3 ml PER PROTOCOL IV Last administered on 07/26/18 20:08; Admin Dose 3 ML; Start 07/04/18 at 18:30 Docusate Sodium (Colace) 100 mg Q12H PRN PO .CONSTIPATION Last administered on 08/16/18 14:09; Admin Dose 100 MG; Start 07/04/18 at 18:30 Albuterol (Proventil 0.083% (Neb)) 2.5 mg Q4H RESP THERAPY PRN HHN SHORTNESS OF BREATH; Start 07/04/18 at 18:30 Metoclopramide HCl (Reglan) 5 mg Q6H PRN IV NAUSEA Last administered on 08/18/18 03:57; Admin Dose 5 MG; Start 07/05/18 at 10:00 Midodrine (Proamatine) 10 mg TID PO Last administered on 08/17/18 20:21; Admin Dose 10 MG; Start 07/06/18 at 09:00 Albuterol (Ventolin Hfa) 2 puff Q4 INH Last administered on 08/18/18 04:10; Admin Dose 2 PUFF; Start 07/06/18 at 04:30 Rifaximin (Xifaxan) 200 mg TID PO Last administered on 08/17/18 22:13; Admin Dose 200 MG; Start 07/09/18 at 21:00 Sodium Hypochlorite (Dakin'S (Dilute 1/40)) 1 applic DAILY IRR Last administered on 08/15/18 08:28; Admin Dose 1 APPLIC; Start 07/15/18 at 23:45 Simethicone (Mylicon) 80 mg Q6H PRN PO DISTENSION/GAS/BLOATING Last administered on 08/17/18 21:54; Admin Dose 80 MG; Start 07/16/18 at 15:30 Lactulose (Enulose) 10 gm DAILY PO Last administered on 08/17/18 08:16; Admin Dose 10 GM; Start 07/19/18 at 09:00 Diphenhydramine HCl (Benadryl) 25 mg Q8H PRN IV PRURITUS/ITCHING Last administered on 08/04/18 07:15; Admin Dose 25 MG; Start 07/20/18 at 18:30 Morphine Sulfate (morphine) 6 mg Q4H PRN PO SEVERE PAIN LEVEL 7-10 Last admin istered on 08/05/18 05:23; Admin Dose 6 MG; Start 07/20/18 at 23:30 Nystatin (Nystatin Powder) 1 applic BID TOP Last administered on 08/17/18 21:59; Admin Dose 1 APPLIC; Start 07/25/18 at 21:00 Nystatin (Nystatin Oint) 1 applic TID TOP Last administered on 08/17/18 21:59; Admin Dose 1 APPLIC; Start 07/27/18 at 21:00 Hydromorphone HCl (Dilaudid) 1 mg Q3H PRN IV SEVERE PAIN LEVEL 7-10 Last admi nistered on 08/18/18 06:50; Admin Dose 1 MG; Start 07/30/18 at 13:00 Ondansetron HCl (Zofran Odt) 8 mg Q6H PRN ODT NAUSEA AND/OR VOMITING Last administered on 08/18/18 06:50; Admin Dose 8 MG; Start 08/09/18 at 16:00 Spironolactone (Aldactone) 100 mg BID DIURETICS PO Last administered on 08/18/18 06:48; Admin Dose 100 MG; Start 08/11/18 at 06:00 Trazodone HCl (Desyrel) 100 mg HS PRN PO insomnia Last administered on 08/17/18 20:22; Admin Dose 100 MG; Start 08/14/18 at 12:00 Levofloxacin (Levaquin) 500 mg DAILY@06 PO Last administered on 08/18/18 06:49; Admin Dose 500 MG; Start 08/16/18 at 06:00 Miscellaneous Information (*Order Clarification Bulletin) MEDICATION REQUIRES CLARIFICATI... Q8H XX ; Start 08/15/18 at 16:00 Furosemide (Lasix) 20 mg DAILY GTB Last administered on 08/17/18 08:15; Admin Dose 20 MG; Start 08/16/18 at 09:00 Lubiprostone (Amitiza) 24 mcg BID PO Last administered on 08/17/18at 20:21; Admin Dose 24 MCG; Start 08/17/18 at 21:00 SARA EISENBERG Aug 18, 2018 07:44
[2018-08-18 07:50] VITALS: BP 86/48; PULSE 80; RESP 17
[2018-08-18] MEDS ORDERED: BISACODYL (EC) 5 MG TAB PO ONE (08:30)
[2018-08-18] MEDS: RIFAXIMIN 200 MG TAB PO SCH ×3 (08:32→21:28)
[2018-08-18] MEDS: LUBIPROSTONE 24 MCG CAP PO SCH ×2 (08:38→21:28)
[2018-08-18] MEDS: LACTULOSE 30ML CUP PO SCH (08:38)
[2018-08-18] MEDS: FUROSEMIDE 20 MG TAB GTB SCH (08:38)
[2018-08-18] MEDS: NYSTATIN 30 GM POWDER BTL TOP SCH ×2 (08:39→21:32)
[2018-08-18] MEDS: NYSTATIN 15 GM OINT TOP SCH ×3 (08:39→21:32)
[2018-08-18] MEDS: MIDODRINE 5 MG TAB PO SCH ×3 (08:39→21:27)
[2018-08-18] MEDS: SODIUM HYPOCHLORITE (1/40) 1 APPLIC BTL IRR SCH (08:40)
[2018-08-18] MEDS ORDERED: POLYETHYLENE GLYCOL 17 GM PACKET ONE (08:42)
[2018-08-18 12:50] VITALS: BP 103/59; PULSE 78
[2018-08-18] MEDS: POLYETHYLENE GLYCOL 17 GM PACKET PO SCH (14:01)
[2018-08-18 14:40] VITALS: BP 107/52; PULSE 93; RESP 16
--- NOTE | 2018-08-18 15:03 | PN ---
Date/Time of Note Date/Time of Note DATE: 08/18/18 TIME: 15:02 Assessment/Plan VTE Prophylaxis Risk score (from Ns)>0 risk: 5 SCD applied (from Ns): Yes Pharmacological prophylaxis: heparin Lines/Catheters IV Catheter Type (from Nrsg): Mid Line Urinary Cath still in place: No Assessment/Plan Hospital Course 48 yo female with cirrhosis, sepsis with bacteremia, C Diff colitis and large foot wound Foot wound - s/p skin grafting. Continue wound vac SBP with klebsiella bacteremia: - Abx course per ID Cirrhosis: - Serial paracentesis - Continue diuretics - rifaxamin/lactulose C Diff diarrhea: - s/p PO vanco course Hyponatremia: - Hypervolemic Limit free water PT/OT DIscharge to SNF when able Result Diagram: 08/15/18 0449 08/17/18 0535 Subjective 24 Hr Interval Summary Free Text/Dictation Doing well, awaiting discharge to SNF Wound vac to foot Exam/Review of Systems Exam Vitals Vital Signs Date Temp Pulse Resp B/P (MAP) Pulse Ox O2 O2 Flow FiO2 Time Delivery Rate 08/18/18 97.6 93 16 107/52 93 Room Air 14:40 (70) 08/16/18 2.0 10:14 Intake and Output 08/17/18 08/17/18 08/18/18 1515:00 23:00 07:00 IntakeIntake Total 700 ml 240 ml BalanceBalance 700 ml 240 ml Exam AOX3 RRR Pleasant, apporpriate breathin comfortabl abdomen soft, mildly distended wound vac to foot Medications Medication Current Medications IV Flush (NS 3 ml) 3 ml PER PROTOCOL IV Last administered on 07/26/18at 20:08; Admin Dose 3 ML; Start 07/04/18 at 18:30 Docusate Sodium (Colace) 100 mg Q12H PRN PO .CONSTIPATION Last administered on 08/16/18at 14:09; Admin Dose 100 MG; Start 07/04/18 at 18:30 Albuterol (Proventil 0.083% (Neb)) 2.5 mg Q4H RESP THERAPY PRN HHN SHORTNESS OF BREATH; Start 07/04/18 at 18:30 Metoclopramide HCl (Reglan) 5 mg Q6H PRN IV NAUSEA Last administered on 08/18/18at 10:07; Admin Dose 5 MG; Start 07/05/18 at 10:00 Midodrine (Proamatine) 10 mg TID PO Last administered on 08/18/18 12:55; Admin Dose 10 MG; Start 07/06/18 at 09:00 Albuterol (Ventolin Hfa) 2 puff Q4 INH Last administered on 08/18/18 12:56; Admin Dose 2 PUFF; Start 07/06/18 at 04:30 Rifaximin (Xifaxan) 200 mg TID PO Last administered on 08/18/18 12:55; Admin Dose 200 MG; Start 07/09/18 at 21:00 Sodium Hypochlorite (Dakin'S (Dilute )) 1 applic DAILY IRR Last administered on 08/15/18 08:28; Admin Dose 1 APPLIC; Start 07/15/18 at 23:45 Simethicone (Mylicon) 80 mg Q6H PRN PO DISTENSION/GAS/BLOATING Last administered on 08/17/18 21:54; Admin Dose 80 MG; Start 07/16/18 at 15:30 Lactulose (Enulose) 10 gm DAILY PO Last administered on 08/18/18 08:38; Admin Dose 10 GM; Start 07/19/18 at 09:00 Diphenhydramine HCl (Benadryl) 25 mg Q8H PRN IV PRURITUS/ITCHING Last administered on 08/04/18 07:15; Admin Dose 25 MG; Start 07/20/18 at 18:30 Morphine Sulfate (morphine) 6 mg Q4H PRN PO SEVERE PAIN LEVEL 7-10 Last administered on 08/05/18 05:23; Admin Dose 6 MG; Start 07/20/18 at 23:30 Nystatin (Nystatin Powder) 1 applic BID TOP Last administered on 08/18/18 08:39; Admin Dose 1 APPLIC; Start 07/25/18 at 21:00 Nystatin (Nystatin Oint) 1 applic TID TOP Last administered on 08/18/18 12:56; Admin Dose 1 APPLIC; Start 07/27/18 at 21:00 Hydromorphone HCl (Dilaudid) 1 mg Q3H PRN IV SEVERE PAIN LEVEL 7-10 Last administered on 08/18/18 12:54; Admin Dose 1 MG; Start 07/30/18 at 13:00 Ondansetron HCl (Zofran Odt) 8 mg Q6H PRN ODT NAUSEA AND/OR VOMITING Last administered on 08/18/18 12:54; Admin Dose 8 MG; Start 08/09/18 at 16:00 Spironolactone (Aldactone) 100 mg BID DIURETICS PO Last administered on 08/18/18 06:48; Admin Dose 100 MG; Start 08/11/18 at 06:00 Trazodone HCl (Desyrel) 100 mg HS PRN PO insomnia Last administered on 08/17/18 20:22; Admin Dose 100 MG; Start 08/14/18 at 12:00 Levofloxacin (Levaquin) 500 mg DAILY@06 PO Last administered on 08/18/18 06:49; Admin Dose 500 MG; Start 08/16/18 at 06:00 Miscellaneous Information (*Order Clarification Bulletin) MEDICATION REQUIRES CLARIFICATI... Q8H XX ; Start 08/15/18 at 16:00 Furosemide (Lasix) 20 mg DAILY GTB Last administered on 08/18/18 08:38; Admin Dose 20 MG; Start 08/16/18 at 09:00 Lubiprostone (Amitiza) 24 mcg BID PO Last administered on 08/18/18 08:38; Admin Dose 24 MCG; Start 08/17/18 at 21:00 Polyethylene Glycol (Miralax) 17 gm DAILY PO Last administered on 08/18/18 14:01; Admin Dose 17 GM; Start 08/18/18 at 09:00 MARIA DEL CARMEN BENITES MD Aug 18, 2018 15:03
--- NOTE | 2018-08-18 16:35 | CONS ---
Assessment/Plan Assessment/Plan Hospital Course (Demo Recall) Alert, feels good, no fevers Microbiology: Blood culture on admission grew Klebsiella pneumonia on July 04 susceptible to Cipro and Levaquin, stool for C. difficile positive, urine culture negative MRSA swab negative, L foot wound culture grew Klebsiella pneumoniae susceptible to ming quinolones and staph species. Repeat left foot wound culture growing coag negative staph species Physical examination: Chronically ill-appearing middle-aged woman who is in no distress. Head atraumatic normocephalic sclera nonicteric vehicle mucosa dry neck is supple chest rise symmetrical breath sounds diminished at bases. Heart: S1-S2. Abdomen soft bowel sounds present extremities with bilateral edema, left lower extremity dressing intact Assessment: 1. S/p sepsis with Klebsiella pneumonia bacteremia likely secondary to SBP vs #2 2. Left lower extremity abscess/ cellulitis==> neg OM, s/p i/d 07/18/18 with wound vac, s/p skin graft 08/16/18 3. C. difficile colitis==> treated 4. Alcoholic liver cirrhosis==> on tx list at [facility] 5. Recurrent ascites s/p multiple paracentesis 6. Anemia and thrombocytopenia Plan: Remains stable, continue Levaquin for 5 more days GI rec-s Consultation Date/Type/Reason Admit Date/Time Jul 04, 2018 at 14:22 Initial Consult Date 07/07/18 Type of Consult id Requesting Provider: ANA SPICER Date/Time of Note DATE: 08/18/18 TIME: 16:34 Exam/Review of Systems Exam Vitals Vital Signs Date Temp Pulse Resp B/P (MAP) Pulse Ox O2 O2 Flow FiO2 Time Delivery Rate 08/18/18 97.6 93 16 107/52 93 Room Air 14:40 (70) 08/16/18 2.0 10:14 Intake and Output 08/17/18 08/17/18 08/18/18 1515:00 23:00 07:00 IntakeIntake Total 700 ml 240 ml BalanceBalance 700 ml 240 ml Results Result Diagram: 08/15/18 0449 08/17/18 0535 Medications Medication Current Medications IV Flush (NS 3 ml) 3 ml PER PROTOCOL IV Last administered on 07/26/18at 20:08; Admin Dose 3 ML; Start 07/04/18 at 18:30 Docusate Sodium (Colace) 100 mg Q12H PRN PO .CONSTIPATION Last administered on 08/16/18 14:09; Admin Dose 100 MG; Start 07/04/18 at 18:30 Albuterol (Proventil 0.083% (Neb)) 2.5 mg Q4H RESP THERAPY PRN HHN SHORTNESS OF BREATH; Start 07/04/18 at 18:30 Metoclopramide HCl (Reglan) 5 mg Q6H PRN IV NAUSEA Last administered on 08/18/18 10:07; Admin Dose 5 MG; Start 07/05/18 at 10:00 Midodrine (Proamatine) 10 mg TID PO Last administered on 08/18/18 12:55; Admin Dose 10 MG; Start 07/06/18 at 09:00 Albuterol (Ventolin Hfa) 2 puff Q4 INH Last administered on 08/18/18 12:56; Admin Dose 2 PUFF; Start 07/06/18 at 04:30 Rifaximin (Xifaxan) 200 mg TID PO Last administered on 08/18/18 12:55; Admin Dose 200 MG; Start 07/09/18 at 21:00 Sodium Hypochlorite (Dakin'S (Dilute )) 1 applic DAILY IRR Last administered on 08/15/18 08:28; Admin Dose 1 APPLIC; Start 07/15/18 at 23:45 Simethicone (Mylicon) 80 mg Q6H PRN PO DISTENSION/GAS/BLOATING Last administered on 08/17/18 21:54; Admin Dose 80 MG; Start 07/16/18 at 15:30 Lactulose (Enulose) 10 gm DAILY PO Last administered on 08/18/18 08:38; Admin Dose 10 GM; Start 07/19/18 at 09:00 Diphenhydramine HCl (Benadryl) 25 mg Q8H PRN IV PRURITUS/ITCHING Last administered on 08/04/18 07:15; Admin Dose 25 MG; Start 07/20/18 at 18:30 Morphine Sulfate (morphine) 6 mg Q4H PRN PO SEVERE PAIN LEVEL 7-10 Last administered on 08/05/18 05:23; Admin Dose 6 MG; Start 07/20/18 at 23:30 Nystatin (Nystatin Powder) 1 applic BID TOP Last administered on 08/18/18 08:39; Admin Dose 1 APPLIC; Start 07/25/18 at 21:00 Nystatin (Nystatin Oint) 1 applic TID TOP Last administered on 08/18/18 12:56; Admin Dose 1 APPLIC; Start 07/27/18 at 21:00 Hydromorphone HCl (Dilaudid) 1 mg Q3H PRN IV SEVERE PAIN LEVEL 7-10 Last administered on 08/18/18 12:54; Admin Dose 1 MG; Start 07/30/18 at 13:00 Ondansetron HCl (Zofran Odt) 8 mg Q6H PRN ODT NAUSEA AND/OR VOMITING Last administered on 08/18/18 12:54; Admin Dose 8 MG; Start 08/09/18 at 16:00 Spironolactone (Aldactone) 100 mg BID DIURETICS PO Last administered on 08/18/18 06:48; Admin Dose 100 MG; Start 08/11/18 at 06:00 Trazodone HCl (Desyrel) 100 mg HS PRN PO insomnia Last administered on 08/17/18 20:22; Admin Dose 100 MG; Start 08/14/18 at 12:00 Levofloxacin (Levaquin) 500 mg DAILY@06 PO Last administered on 08/18/18 06:49; Admin Dose 500 MG; Start 08/16/18 at 06:00 Miscellaneous Information (*Order Clarification Bulletin) MEDICATION REQUIRES CLARIFICATI... Q8H XX ; Start 08/15/18 at 16:00 Furosemide (Lasix) 20 mg DAILY GTB Last administered on 08/18/18 08:38; Admin Dose 20 MG; Start 08/16/18 at 09:00 Lubiprostone (Amitiza) 24 mcg BID PO Last administered on 08/18/18 08:38; Admin Dose 24 MCG; Start 08/17/18 at 21:00 Polyethylene Glycol (Miralax) 17 gm DAILY PO Last administered on 08/18/18 14:01; Admin Dose 17 GM; Start 08/18/18 at 09:00 EMA MUELLER NP Aug 18, 2018 16:35
[2018-08-18 20:29] VITALS: BP 107/52; PULSE 87; RESP 20
[2018-08-18] MEDS: traZODone 100 MG TAB PO PRN (21:28)
[2018-08-19] MEDS: HYDROmorphONE 1 MG/ML SYG IV PRN ×7 (03:03→21:48)
[2018-08-19] MEDS: ONDANSETRON (ODT) 4 MG TAB ODT PRN ×4 (03:03→21:44)
[2018-08-19] MEDS: ALBUTEROL HFA 8 GM INHALER INH SCH ×6 (03:11→21:48)
[2018-08-19] MEDS: SPIRONOLACTONE 50 MG TAB PO SCH ×2 (06:23→21:45)
[2018-08-19] MEDS: METOCLOPRAMIDE 10 MG INJ IV PRN ×3 (06:24→18:29)
[2018-08-19] MEDS: LEVOFLOXACIN 500 MG TAB PO SCH (06:24)
[2018-08-19 08:22] VITALS: BP 101/50; PULSE 93; RESP 18
[2018-08-19] MEDS: LACTULOSE 30ML CUP PO SCH (08:57)
[2018-08-19] MEDS: FUROSEMIDE 20 MG TAB GTB SCH (08:58)
[2018-08-19] MEDS: MIDODRINE 5 MG TAB PO SCH ×3 (08:58→21:44)
[2018-08-19] MEDS: POLYETHYLENE GLYCOL 17 GM PACKET PO SCH (08:59)
[2018-08-19] MEDS: RIFAXIMIN 200 MG TAB PO SCH ×3 (08:59→21:45)
[2018-08-19] MEDS: SODIUM HYPOCHLORITE (1/40) 1 APPLIC BTL IRR SCH (08:59)
[2018-08-19] MEDS: NYSTATIN 15 GM OINT TOP SCH ×3 (08:59→21:54)
[2018-08-19] MEDS: LUBIPROSTONE 24 MCG CAP PO SCH ×2 (08:59→21:44)
[2018-08-19] MEDS: NYSTATIN 30 GM POWDER BTL TOP SCH ×2 (09:00→21:55)
[2018-08-19 14:00] VITALS: BP 107/51; PULSE 86; RESP 17
--- NOTE | 2018-08-19 15:09 | PN ---
Date/Time of Note Date/Time of Note DATE: 08/19/18 TIME: 15:07 Assessment/Plan VTE Prophylaxis Risk score (from Ns)>0 risk: 3 SCD applied (from Ns): Yes Pharmacological prophylaxis: heparin Lines/Catheters IV Catheter Type (from Nrsg): Mid Line Urinary Cath still in place: No Assessment/Plan Hospital Course 48 yo female with cirrhosis, sepsis with bacteremia, C Diff colitis and large foot wound Foot wound - s/p skin grafting. Continue wound care. Per patient report podiatyr says can be cleared on Wednesday SBP with klebsiella bacteremia: - Abx course per ID Cirrhosis: - Serial paracentesis - Continue diuretics - rifaxamin/lactulose C Diff diarrhea: - s/p PO vanco course Hyponatremia: - Hypervolemic Limit free water PT/OT DIscharge to SNF early next week when cleared by podiatry Result Diagram: 08/15/18 0449 08/17/18 0535 Subjective 24 Hr Interval Summary Free Text/Dictation Still with wound wrapped Awaiting dispo plan per report, patient accpeted to facility but no cleared by poidatry for dc until next week Exam/Review of Systems Exam Vitals Vital Signs Date Temp Pulse Resp B/P (MAP) Pulse Ox O2 O2 Flow FiO2 Time Delivery Rate 08/19/18 98.1 93 18 101/50 98 Room Air 08:22 (67) 08/16/18 2.0 10:14 Intake and Output 08/18/18 08/18/18 08/19/18 1515:00 23:00 07:00 IntakeIntake Total 250 ml 200 ml 350 ml BalanceBalance 250 ml 200 ml 350 ml Medications Medication Current Medications IV Flush (NS 3 ml) 3 ml PER PROTOCOL IV Last administered on 07/26/18at 20:08; Admin Dose 3 ML; Start 07/04/18 at 18:30 Docusate Sodium (Colace) 100 mg Q12H PRN PO .CONSTIPATION Last administered on 08/16/18at 14:09; Admin Dose 100 MG; Start 07/04/18 at 18:30 Albuterol (Proventil 0.083% (Neb)) 2.5 mg Q4H RESP THERAPY PRN HHN SHORTNESS OF BREATH; Start 07/04/18 at 18:30 Metoclopramide HCl (Reglan) 5 mg Q6H PRN IV NAUSEA Last administered on 08/19/18 12:31; Admin Dose 5 MG; Start 07/05/18 at 10:00 Midodrine (Proamatine) 10 mg TID PO Last administered on 08/19/18 12:30; Admin Dose 10 MG; Start 07/06/18 at 09:00 Albuterol (Ventolin Hfa) 2 puff Q4 INH Last administered on 08/19/18 12:30; Admin Dose 2 PUFF; Start 07/06/18 at 04:30 Rifaximin (Xifaxan) 200 mg TID PO Last administered on 08/19/18 12:31; Admin Dose 200 MG; Start 07/09/18 at 21:00 Sodium Hypochlorite (Dakin'S (Dilute )) 1 applic DAILY IRR Last administered on 08/19/18 08:59; Admin Dose 1 APPLIC; Start 07/15/18 at 23:45 Simethicone (Mylicon) 80 mg Q6H PRN PO DISTENSION/GAS/BLOATING Last administered on 08/19/18 06:28; Admin Dose 80 MG; Start 07/16/18 at 15:30 Lactulose (Enulose) 10 gm DAILY PO Last administered on 08/19/18 08:57; Admin Dose 10 GM; Start 07/19/18 at 09:00 Diphenhydramine HCl (Benadryl) 25 mg Q8H PRN IV PRURITUS/ITCHING Last administered on 08/04/18 07:15; Admin Dose 25 MG; Start 07/20/18 at 18:30 Morphine Sulfate (morphine) 6 mg Q4H PRN PO SEVERE PAIN LEVEL 7-10 Last administered on 08/05/18 05:23; Admin Dose 6 MG; Start 07/20/18 at 23:30 Nystatin (Nystatin Powder) 1 applic BID TOP Last administered on 08/19/18 09:00; Admin Dose 1 APPLIC; Start 07/25/18 at 21:00 Nystatin (Nystatin Oint) 1 applic TID TOP Last administered on 08/19/18 12:31; Admin Dose 1 APPLIC; Start 07/27/18 at 21:00 Hydromorphone HCl (Dilaudid) 1 mg Q3H PRN IV SEVERE PAIN LEVEL 7-10 Last administered on 08/19/18 12:31; Admin Dose 1 MG; Start 07/30/18 at 13:00 Ondansetron HCl (Zofran Odt) 8 mg Q6H PRN ODT NAUSEA AND/OR VOMITING Last administered on 08/19/18 09:01; Admin Dose 8 MG; Start 08/09/18 at 16:00 Spironolactone (Aldactone) 100 mg BID DIURETICS PO Last administered on 08/19/18 06:23; Admin Dose 100 MG; Start 08/11/18 at 06:00 Trazodone HCl (Desyrel) 100 mg HS PRN PO insomnia Last administered on 08/18/18 21:28; Admin Dose 100 MG; Start 08/14/18 at 12:00 Levofloxacin (Levaquin) 500 mg DAILY@06 PO Last administered on 08/19/18 06:24; Admin Dose 500 MG; Start 08/16/18 at 06:00 Miscellaneous Information (*Order Clarification Bulletin) MEDICATION REQUIRES CLARIFICATI... Q8H XX ; Start 08/15/18 at 16:00 Furosemide (Lasix) 20 mg DAILY GTB Last administered on 08/19/18 08:58; Admin Dose 20 MG; Start 08/16/18 at 09:00 Lubiprostone (Amitiza) 24 mcg BID PO Last administered on 08/19/18 08:59; Admin Dose 24 MCG; Start 08/17/18 at 21:00 Polyethylene Glycol (Miralax) 17 gm DAILY PO Last administered on 08/19/18 08:59; Admin Dose 17 GM; Start 08/18/18 at 09:00 MARIA DEL CARMEN BENITES MD Aug 19, 2018 15:09
--- NOTE | 2018-08-19 15:12 | CONS ---
Assessment/Plan Assessment/Plan Hospital Course (Demo Recall) Alert, feels good, no fevers Microbiology: Blood culture on admission grew Klebsiella pneumonia on July 04 susceptible to Cipro and Levaquin, stool for C. difficile positive, urine culture negative MRSA swab negative, L foot wound culture grew Klebsiella pneumoniae susceptible to ming quinolones and staph species. Repeat left foot wound culture growing coag negative staph species Physical examination: Chronically ill-appearing middle-aged woman who is in no distress. Head atraumatic normocephalic sclera nonicteric vehicle mucosa dry neck is supple chest rise symmetrical breath sounds diminished at bases. Heart: S1-S2. Abdomen soft bowel sounds present extremities with bilateral edema, left lower extremity dressing intact Assessment: 1. S/p sepsis with Klebsiella pneumonia bacteremia likely secondary to SBP vs #2 2. Left lower extremity abscess/ cellulitis==> neg OM, s/p i/d 07/18/18 with wound vac, s/p skin graft 08/16/18 3. C. difficile colitis==> treated 4. Alcoholic liver cirrhosis==> on tx list at [facility] 5. Recurrent ascites s/p multiple paracentesis 6. Anemia and thrombocytopenia Plan: Remains stable, continue Levaquin for 4 more days GI rec-s Consultation Date/Type/Reason Admit Date/Time Jul 04, 2018 at 14:22 Initial Consult Date 07/07/18 Type of Consult id Requesting Provider: ANA SPICER Date/Time of Note DATE: 08/19/18 TIME: 15:11 Exam/Review of Systems Exam Vitals Vital Signs Date Temp Pulse Resp B/P (MAP) Pulse Ox O2 O2 Flow FiO2 Time Delivery Rate 08/19/18 98.1 93 18 101/50 98 Room Air 08:22 (67) 08/16/18 2.0 10:14 Intake and Output 08/18/18 08/18/18 08/19/18 1515:00 23:00 07:00 IntakeIntake Total 250 ml 200 ml 350 ml BalanceBalance 250 ml 200 ml 350 ml Results Result Diagram: 08/15/18 0449 08/17/18 0535 Medications Medication Current Medications IV Flush (NS 3 ml) 3 ml PER PROTOCOL IV Last administered on 07/26/18at 20:08; Admin Dose 3 ML; Start 07/04/18 at 18:30 Docusate Sodium (Colace) 100 mg Q12H PRN PO .CONSTIPATION Last administered on 08/16/18 14:09; Admin Dose 100 MG; Start 07/04/18 at 18:30 Albuterol (Proventil 0.083% (Neb)) 2.5 mg Q4H RESP THERAPY PRN HHN SHORTNESS OF BREATH; Start 07/04/18 at 18:30 Metoclopramide HCl (Reglan) 5 mg Q6H PRN IV NAUSEA Last administered on 08/19/18 12:31; Admin Dose 5 MG; Start 07/05/18 at 10:00 Midodrine (Proamatine) 10 mg TID PO Last administered on 08/19/18 12:30; Admin Dose 10 MG; Start 07/06/18 at 09:00 Albuterol (Ventolin Hfa) 2 puff Q4 INH Last administered on 08/19/18 12:30; Admin Dose 2 PUFF; Start 07/06/18 at 04:30 Rifaximin (Xifaxan) 200 mg TID PO Last administered on 08/19/18 12:31; Admin Dose 200 MG; Start 07/09/18 at 21:00 Sodium Hypochlorite (Dakin'S (Dilute )) 1 applic DAILY IRR Last administered on 08/19/18 08:59; Admin Dose 1 APPLIC; Start 07/15/18 at 23:45 Simethicone (Mylicon) 80 mg Q6H PRN PO DISTENSION/GAS/BLOATING Last administered on 08/19/18 06:28; Admin Dose 80 MG; Start 07/16/18 at 15:30 Lactulose (Enulose) 10 gm DAILY PO Last administered on 08/19/18 08:57; Admin Dose 10 GM; Start 07/19/18 at 09:00 Diphenhydramine HCl (Benadryl) 25 mg Q8H PRN IV PRURITUS/ITCHING Last administered on 08/04/18 07:15; Admin Dose 25 MG; Start 07/20/18 at 18:30 Morphine Sulfate (morphine) 6 mg Q4H PRN PO SEVERE PAIN LEVEL 7-10 Last administered on 08/05/18 05:23; Admin Dose 6 MG; Start 07/20/18 at 23:30 Nystatin (Nystatin Powder) 1 applic BID TOP Last administered on 08/19/18 09:00; Admin Dose 1 APPLIC; Start 07/25/18 at 21:00 Nystatin (Nystatin Oint) 1 applic TID TOP Last administered on 08/19/18 12:31; Admin Dose 1 APPLIC; Start 07/27/18 at 21:00 Hydromorphone HCl (Dilaudid) 1 mg Q3H PRN IV SEVERE PAIN LEVEL 7-10 Last administered on 08/19/18 12:31; Admin Dose 1 MG; Start 07/30/18 at 13:00 Ondansetron HCl (Zofran Odt) 8 mg Q6H PRN ODT NAUSEA AND/OR VOMITING Last administered on 08/19/18 09:01; Admin Dose 8 MG; Start 08/09/18 at 16:00 Spironolactone (Aldactone) 100 mg BID DIURETICS PO Last administered on 08/19/18 06:23; Admin Dose 100 MG; Start 08/11/18 at 06:00 Trazodone HCl (Desyrel) 100 mg HS PRN PO insomnia Last administered on 08/18/18 21:28; Admin Dose 100 MG; Start 08/14/18 at 12:00 Levofloxacin (Levaquin) 500 mg DAILY@06 PO Last administered on 08/19/18 06:24; Admin Dose 500 MG; Start 08/16/18 at 06:00 Miscellaneous Information (*Order Clarification Bulletin) MEDICATION REQUIRES CLARIFICATI... Q8H XX ; Start 08/15/18 at 16:00 Furosemide (Lasix) 20 mg DAILY GTB Last administered on 08/19/18 08:58; Admin Dose 20 MG; Start 08/16/18 at 09:00 Lubiprostone (Amitiza) 24 mcg BID PO Last administered on 08/19/18 08:59; Admin Dose 24 MCG; Start 08/17/18 at 21:00 Polyethylene Glycol (Miralax) 17 gm DAILY PO Last administered on 08/19/18 08:59; Admin Dose 17 GM; Start 08/18/18 at 09:00 EMA MUELLER NP Aug 19, 2018 15:12
--- NOTE | 2018-08-19 18:04 | CONS ---
Assessment/Plan Assessment/Plan Assessment/Plan (Daily) Interval hx: Pt has not had bm since 08/10. Still no bm. She was started on amitiza. She refused dulcolax [facility], will change to PO. Nausea improved. Denies abd pain, less pressure since paracentesis. 1. Alcoholic Cirrhosis of liver. -on transplant list at [facility] -AFP wnl 2. Anemia of chronic disease. 3. Pancytopenia secondary to #1 4. 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 5. Cellulitis, status post skin graft and wound VAC. -K. pneumoniae and coagulase neg staph in wound -followed by podiatry 6. Clostridium difficile colitis. -resolved 7. SBP -resolved, treatment complete 8. S/P colonoscopy 08/04 found diverticulosis and external hemorrhoids 9. S/P EGD 08/04 shows congestive gastropathy, esophageal varices 10. Anasarca -on aldactone 50 mg BID PO US of abd 08/01: 1. Coarse nodular liver consistent with cirrhosis. No focal hepatic masses. 2. Status post cholecystectomy. No biliary duct dilatation. 3. Patent portal vein with pulsatile hepatopetal flow. 4. Suspect portal hypertension as demonstrated by moderate ascites. 5. Moderate size right pleural effusion as well. 6. Increased right renal cortical echogenicity suggest medical renal disease 7. Severe constipation narcotic induced PLAN: PRN reglan for nausea Start amitiza 24 mcg BID and dulcolax PO x 1, miralax Continue Aldactone 100 mg p.o. twice daily and lasix 20 mg QD Salt restriction with fluid restriction Continue present care Paracentesis as needed Monitor for GI bleeding High fiber diet Podiatry following, plan for skin graft Relistor Consultation Date/Type/Reason Admit Date/Time Jul 04, 2018 at 14:22 Initial Consult Date 07/07/18 Requesting Provider: ANA SPICER Date/Time of Note DATE: 08/19/18 TIME: 18:03 24 HR Interval Summary Free Text/Dictation Patient's complains of severe constipation Constitutional: improved Exam/Review of Systems Exam Vitals Vital Signs Date Temp Pulse Resp B/P (MAP) Pulse Ox O2 O2 Flow FiO2 Time Delivery Rate 08/19/18 98.1 93 18 101/50 98 Room Air 08:22 (67) 08/16/18 2.0 10:14 Intake and Output 08/18/18 08/18/18 08/19/18 1515:00 23:00 07:00 IntakeIntake Total 250 ml 200 ml 350 ml BalanceBalance 250 ml 200 ml 350 ml Constitutional: alert, oriented, well developed Psych: no complaints, nl mood/affect Head: normocephalic, atraumatic Eyes: nl conjunctiva, EOMI, nl lids, nl sclera, PERRL ENMT: nl external ears & nose, nl lips & teeth, nl nasal mucosa & septum Neck: supple, non-tender Respiratory: clear to auscultation, normal air movement Cardiovascular: regular rate and rhythm, nl pulses Gastrointestinal: soft, nl liver, spleen, non-tender Musculoskeletal: nl extremities to inspection, nl gait and stance Extremities: normal pulses 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: SONG LYRICIST II-XII intact, nl mental status, nl speech, nl strength Skin: nl turgor; No rash or lesions Lymph: nl lymph nodes Results Result Diagram: 08/15/18 0449 08/17/18 0535 Medications Medication Current Medications IV Flush (NS 3 ml) 3 ml PER PROTOCOL IV Last administered on 07/26/18 20:08; Admin Dose 3 ML; Start 07/04/18 at 18:30 Docusate Sodium (Colace) 100 mg Q12H PRN PO .CONSTIPATION Last administered on 08/16/18 14:09; Admin Dose 100 MG; Start 07/04/18 at 18:30 Albuterol (Proventil 0.083% (Neb)) 2.5 mg Q4H RESP THERAPY PRN HHN SHORTNESS OF BREATH; Start 07/04/18 at 18:30 Metoclopramide HCl (Reglan) 5 mg Q6H PRN IV NAUSEA Last administered on 12:31; Admin Dose 5 MG; Start 07/05/18 at 10:00 Midodrine (Proamatine) 10 mg TID PO Last administered on 08/19/18 12:30; Admin Dose 10 MG; Start 07/06/18 at 09:00 Albuterol (Ventolin Hfa) 2 puff Q4 INH Last administered on 08/19/18 12:30; Admin Dose 2 PUFF; Start 07/06/18 at 04:30 Rifaximin (Xifaxan) 200 mg TID PO Last administered on 08/19/18 12:31; Admin Dose 200 MG; Start 07/09/18 at 21:00 Sodium Hypochlorite (Dakin'S (Dilute )) 1 applic DAILY IRR Last administered on 08/19/18 08:59; Admin Dose 1 APPLIC; Start 07/15/18 at 23:45 Simethicone (Mylicon) 80 mg Q6H PRN PO DISTENSION/GAS/BLOATING Last administered on 08/19/18 06:28; Admin Dose 80 MG; Start 07/16/18 at 15:30 Lactulose (Enulose) 10 gm DAILY PO Last administered on 08/19/18 08:57; Admin Dose 10 GM; Start 07/19/18 at 09:00 Diphenhydramine HCl (Benadryl) 25 mg Q8H PRN IV PRURITUS/ITCHING Last administered on 08/04/18 07:15; Admin Dose 25 MG; Start 07/20/18 at 18:30 Morphine Sulfate (morphine) 6 mg Q4H PRN PO SEVERE PAIN LEVEL 7-10 Last administered on 08/05/18 05:23; Admin Dose 6 MG; Start 07/20/18 at 23:30 Nystatin (Nystatin Powder) 1 applic BID TOP Last administered on 08/19/18 09:00; Admin Dose 1 APPLIC; Start 07/25/18 at 21:00 Nystatin (Nystatin Oint) 1 applic TID TOP Last administered on 08/19/18 12:31; Admin Dose 1 APPLIC; Start 07/27/18 at 21:00 Hydromorphone HCl (Dilaudid) 1 mg Q3H PRN IV SEVERE PAIN LEVEL 7-10 Last administered on 08/19/18 15:48; Admin Dose 1 MG; Start 07/30/18 at 13:00 Ondansetron HCl (Zofran Odt) 8 mg Q6H PRN ODT NAUSEA AND/OR VOMITING Last administered on 08/19/18 15:47; Admin Dose 8 MG; Start 08/09/18 at 16:00 Spironolactone (Aldactone) 100 mg BID DIURETICS PO Last administered on 08/19/18 06:23; Admin Dose 100 MG; Start 08/11/18 at 06:00 Trazodone HCl (Desyrel) 100 mg HS PRN PO insomnia Last administered on 08/18/18 21:28; Admin Dose 100 MG; Start 08/14/18 at 12:00 Levofloxacin (Levaquin) 500 mg DAILY@06 PO Last administered on 08/19/18 06:24; Admin Dose 500 MG; Start 08/16/18 at 06:00 Miscellaneous Information (*Order Clarification Bulletin) MEDICATION REQUIRES CLARIFICATI... Q8H XX ; Start 08/15/18 at 16:00 Furosemide (Lasix) 20 mg DAILY GTB Last administered on 08/19/18 08:58; Admin Dose 20 MG; Start 08/16/18 at 09:00 Lubiprostone (Amitiza) 24 mcg BID PO Last administered on 08/19/18 08:59; Admin Dose 24 MCG; Start 08/17/18 at 21:00 Polyethylene Glycol (Miralax) 17 gm DAILY PO Last administered on 08/19/18 08:59; Admin Dose 17 GM; Start 08/18/18 at 09:00 TRISTIAN NAIDU MD Aug 19, 2018 18:04
[2018-08-19] MEDS: METHYLNALTREXONE 12 MG/0.6 ML VIAL SC SCH (19:30)
[2018-08-19 20:42] VITALS: BP 98/50; PULSE 89; RESP 18
[2018-08-19] MEDS: traZODone 100 MG TAB PO PRN (23:34)
[2018-08-20] MEDS: METOCLOPRAMIDE 10 MG INJ IV PRN ×4 (01:06→21:26)
[2018-08-20] MEDS: HYDROmorphONE 1 MG/ML SYG IV PRN ×6 (01:06→19:44)
[2018-08-20] MEDS: ALBUTEROL HFA 8 GM INHALER INH SCH ×6 (01:08→21:27)
[2018-08-20 02:00] VITALS: BP 103/51; PULSE 100; RESP 20
[2018-08-20] MEDS: ONDANSETRON (ODT) 4 MG TAB ODT PRN ×3 (05:59→19:44)
[2018-08-20] MEDS: LEVOFLOXACIN 500 MG TAB PO SCH (05:59)
[2018-08-20] MEDS: SPIRONOLACTONE 50 MG TAB PO SCH ×2 (05:59→17:43)
[2018-08-20] MEDS: LACTULOSE 30ML CUP PO SCH (08:33)
[2018-08-20] MEDS: RIFAXIMIN 200 MG TAB PO SCH ×3 (08:34→21:26)
[2018-08-20] MEDS: MIDODRINE 5 MG TAB PO SCH ×3 (08:34→21:26)
[2018-08-20] MEDS: FUROSEMIDE 20 MG TAB GTB SCH (08:35)
[2018-08-20] MEDS: LUBIPROSTONE 24 MCG CAP PO SCH ×2 (08:35→21:26)
[2018-08-20] MEDS: POLYETHYLENE GLYCOL 17 GM PACKET PO SCH (08:35)
[2018-08-20] MEDS: SODIUM HYPOCHLORITE (1/40) 1 APPLIC BTL IRR SCH (08:36)
[2018-08-20] MEDS: NYSTATIN 30 GM POWDER BTL TOP SCH ×2 (08:42→21:33)
[2018-08-20] MEDS: NYSTATIN 15 GM OINT TOP SCH ×3 (08:43→21:33)
[2018-08-20 08:52] VITALS: BP 102/53; PULSE 104; RESP 17
--- NOTE | 2018-08-20 13:01 | CONS ---
Assessment/Plan Assessment/Plan Hospital Course (Demo Recall) Interval HX- no acute events overnight, tolerating diet well, had BM Yesterday and today am. Denies abdominal pain 1. Alcoholic Cirrhosis of liver. -on transplant list at [facility] -AFP wnl 2. Anemia of chronic disease. 3. Pancytopenia secondary to #1 4. 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 5. Cellulitis, status post skin graft and wound VAC. -K. pneumoniae and coagulase neg staph in wound -followed by podiatry 6. Clostridium difficile colitis. -resolved 7. SBP -resolved, treatment complete 8. S/P colonoscopy 08/04 found diverticulosis and external hemorrhoids 9. S/P EGD 08/04 shows congestive gastropathy, esophageal varices 10. Anasarca -on aldactone 50 mg BID PO US of abd 08/01: 1. Coarse nodular liver consistent with cirrhosis. No focal hepatic masses. 2. Status post cholecystectomy. No biliary duct dilatation. 3. Patent portal vein with pulsatile hepatopetal flow. 4. Suspect portal hypertension as demonstrated by moderate ascites. 5. Moderate size right pleural effusion as well. 6. Increased right renal cortical echogenicity suggest medical renal disease 7. Severe constipation narcotic induced PLAN: PRN reglan for nausea Continue amitiza 24 mcg BID and miralax daily Continue Aldactone 100 mg p.o. twice daily and lasix 20 mg QD Salt restriction with fluid restriction Continue present care Paracentesis as needed Monitor for GI bleeding High fiber diet Podiatry following, s/p skin graft D/C planning to SNF in progress Patient seen and examined and plan of care discussed with Dr Bautista Consultation Date/Type/Reason Admit Date/Time Jul 04, 2018 at 14:22 Initial Consult Date 07/07/18 Requesting Provider: ANA SPICER Date/Time of Note DATE: 08/20/18 TIME: 12:59 Exam/Review of Systems Exam Vitals Vital Signs Date Temp Pulse Resp B/P (MAP) Pulse Ox O2 O2 Flow FiO2 Time Delivery Rate 08/20/18 98.5 104 17 102/53 94 Room Air 08:52 (69) 08/16/18 2.0 10:14 Intake and Output 08/19/18 08/19/18 08/20/18 1515:00 23:00 07:00 IntakeIntake Total 400 ml 500 ml 480 ml OutputOutput Total 1000 ml BalanceBalance 400 ml -500 ml 480 ml Constitutional: alert, oriented Psych: no complaints Head: normocephalic, atraumatic Eyes: nl conjunctiva ENMT: nl external ears & nose Neck: supple, non-tender Respiratory: clear to auscultation Cardiovascular: regular rate and rhythm Gastrointestinal: soft Musculoskeletal: other (s/p skin graft,dressing to left thigh clean, dry and intact) 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: BLASTING CONTRACT MAN II-XII intact Results Result Diagram: 08/17/18 0535 Medications Medication Current Medications IV Flush (NS 3 ml) 3 ml PER PROTOCOL IV Last administered on 07/26/18 20:08; Admin Dose 3 ML; Start 07/04/18 at 18:30 Docusate Sodium (Colace) 100 mg Q12H PRN PO .CONSTIPATION Last administered on 08/16/18 14:09; Admin Dose 100 MG; Start 07/04/18 at 18:30 Albuterol (Proventil 0.083% (Neb)) 2.5 mg Q4H RESP THERAPY PRN HHN SHORTNESS OF BREATH; Start 07/04/18 at 18:30 Metoclopramide HCl (Reglan) 5 mg Q6H PRN IV NAUSEA Last administered on 08/20/18 09:01; Admin Dose 5 MG; Start 07/05/18 at 10:00 Midodrine (Proamatine) 10 mg TID PO Last administered on 08/20/18 12:42; Admin Dose 10 MG; Start 07/06/18 at 09:00 Albuterol (Ventolin Hfa) 2 puff Q4 INH Last administered on 08/20/18 12:41; Admin Dose 2 PUFF; Start 07/06/18 at 04:30 Rifaximin (Xifaxan) 200 mg TID PO Last administered on 08/20/18 12:42; Admin Dose 200 MG; Start 07/09/18 at 21:00 Sodium Hypochlorite (Dakin'S (Dilute )) 1 applic DAILY IRR Last admi nistered on 08/19/18 08:59; Admin Dose 1 APPLIC; Start 07/15/18 at 23:45 Simethicone (Mylicon) 80 mg Q6H PRN PO DISTENSION/GAS/BLOATING Last administered on 08/19/18 06:28; Admin Dose 80 MG; Start 07/16/18 at 15:30 Lactulose (Enulose) 10 gm DAILY PO Last administered on 08/20/18 08:33; Admin Dose 10 GM; Start 07/19/18 at 09:00 Diphenhydramine HCl (Benadryl) 25 mg Q8H PRN IV PRURITUS/ITCHING Last administered on 08/04/18 07:15; Admin Dose 25 MG; Start 07/20/18 at 18:30 Morphine Sulfate (morphine) 6 mg Q4H PRN PO SEVERE PAIN LEVEL 7-10 Last administered on 08/05/18 05:23; Admin Dose 6 MG; Start 07/20/18 at 23:30 Nystatin (Nystatin Powder) 1 applic BID TOP Last administered on 08/20/18 08:42; Admin Dose 1 APPLIC; Start 07/25/18 at 21:00 Nystatin (Nystatin Oint) 1 applic TID TOP Last administered on 08/20/18 12:54; Admin Dose 1 APPLIC; Start 07/27/18 at 21:00 Hydromorphone HCl (Dilaudid) 1 mg Q3H PRN IV SEVERE PAIN LEVEL 7-10 Last administered on 08/20/18 12:42; Admin Dose 1 MG; Start 07/30/18 at 13:00 Ondansetron HCl (Zofran Odt) 8 mg Q6H PRN ODT NAUSEA AND/OR VOMITING Last administered on 08/20/18 12:42; Admin Dose 8 MG; Start 08/09/18 at 16:00 Spironolactone (Aldactone) 100 mg BID DIURETICS PO Last administered on 08/20/18 05:59; Admin Dose 100 MG; Start 08/11/18 at 06:00 Trazodone HCl (Desyrel) 100 mg HS PRN PO insomnia Last administered on 08/19/18 23:34; Admin Dose 100 MG; Start 08/14/18 at 12:00 Levofloxacin (Levaquin) 500 mg DAILY@06 PO Last administered on 08/20/18 05:59; Admin Dose 500 MG; Start 08/16/18 at 06:00 Furosemide (Lasix) 20 mg DAILY GTB Last administered on 08/20/18 08:35; Admin Dose 20 MG; Start 08/16/18 at 09:00 Lubiprostone (Amitiza) 24 mcg BID PO Last administered on 08/19/18at 21:44; Admin Dose 24 MCG; Start 08/17/18 at 21:00 Polyethylene Glycol (Miralax) 17 gm DAILY PO Last administered on 08/19/18at 08:59; Admin Dose 17 GM; Start 08/18/18 at 09:00 Methylnaltrexone [place] (Relistor) 12 mg Q48H SC ; Start 08/19/18 at 19:30 Miscellaneous Information (*Order Clarification Bulletin) MEDICATION REQUIRES CLARIFICATI... Q8H XX ; Start 08/19/18 at 19:30; Stop 08/21/18 at 19:29 CATARINO JONES NP Aug 20, 2018 13:01
--- NOTE | 2018-08-20 16:04 | PN ---
Date/Time of Note Date/Time of Note DATE: 08/20/18 TIME: 16:03 Assessment/Plan VTE Prophylaxis Risk score (from Ns)>0 risk: 7 SCD applied (from Ns): No SCD contraindicated: other (no) Pharmacological prophylaxis: NA/contraindicated Pharm contraindication: low risk/ambulating Lines/Catheters IV [facility] Mid Line Urinary Cath still in place: No Assessment/Plan Assessment/Plan 48 yo female with cirrhosis, sepsis with bacteremia, C Diff colitis and large foot wound Foot wound - s/p skin grafting. Continue wound care. Per patient report podiatry says can be cleared on Wednesday SBP with klebsiella bacteremia: - Abx course per ID Cirrhosis: - Serial paracentesis - Continue diuretics - rifaxamin/lactulose C Diff diarrhea: - s/p PO vanco course Hyponatremia: - Hypervolemic Limit free water PT/OT DIscharge to SNF early next week when cleared by podiatry Result Diagram: 08/17/18 0535 Subjective 24 Hr Interval Summary Free Text/Dictation Patient doing well, no acute complaints. She does continue to report mild nausea and vomiting. This has improved significantly since she had bowel movement yesterday but is still present. Exam/Review of Systems Exam Vitals Vital Signs Date Temp Pulse Resp B/P (MAP) Pulse Ox O2 O2 Flow FiO2 Time Delivery Rate 08/20/18 98.5 104 17 102/53 94 Room Air 08:52 (69) 08/16/18 2.0 10:14 Intake and Output 08/19/18 08/19/18 08/20/18 1515:00 23:00 07:00 IntakeIntake Total 400 ml 500 ml 480 ml OutputOutput Total 1000 ml BalanceBalance 400 ml -500 ml 480 ml Exam Gen: Well developed woman lying in bed, no distress Eyes: PERRL, no icterus HEENT: Moist mucous membranes, clear oropharynx Neck: supple, no lymphadenopathy Card: Regular rate and rhythm, no murmurs Pulm: Clear to auscultation bilaterally Abd: Distended, soft. No leaking from paracentesis sites. Nontender. Ext: 1+ LE nonpitting edema. Bandaged wounds. Skin: warm, dry, well perfused. Medications Medication Current Medications IV Flush (NS 3 ml) 3 ml PER PROTOCOL IV Last administered on 2/19/19at 20:08; Admin Dose 3 ML; Start 07/04/18 at 18:30 Docusate Sodium (Colace) 100 mg Q12H PRN PO .CONSTIPATION Last administered on 08/16/18 14:09; Admin Dose 100 MG; Start 07/04/18 at 18:30 Albuterol (Proventil 0.083% (Neb)) 2.5 mg Q4H RESP THERAPY PRN HHN SHORTNESS OF BREATH; Start 07/04/18 at 18:30 Metoclopramide HCl (Reglan) 5 mg Q6H PRN IV NAUSEA Last administered on 08/20/18 15:57; Admin Dose 5 MG; Start 07/05/18 at 10:00 Midodrine (Proamatine) 10 mg TID PO Last administered on 08/20/18 12:42; Admin Dose 10 MG; Start 07/06/18 at 09:00 Albuterol (Ventolin Hfa) 2 puff Q4 INH Last administered on 08/20/18 12:41; Admin Dose 2 PUFF; Start 07/06/18 at 04:30 Rifaximin (Xifaxan) 200 mg TID PO Last administered on 08/20/18 12:42; Admin Dose 200 MG; Start 07/09/18 at 21:00 Sodium Hypochlorite (Dakin'S (Dilute )) 1 applic DAILY IRR Last administ ered on 08/19/18 08:59; Admin Dose 1 APPLIC; Start 07/15/18 at 23:45 Simethicone (Mylicon) 80 mg Q6H PRN PO DISTENSION/GAS/BLOATING Last administered on 08/19/18 06:28; Admin Dose 80 MG; Start 07/16/18 at 15:30 Lactulose (Enulose) 10 gm DAILY PO Last administered on 08/20/18 08:33; Admin Dose 10 GM; Start 07/19/18 at 09:00 Diphenhydramine HCl (Benadryl) 25 mg Q8H PRN IV PRURITUS/ITCHING Last a dministered on 08/04/18 07:15; Admin Dose 25 MG; Start 07/20/18 at 18:30 Morphine Sulfate (morphine) 6 mg Q4H PRN PO SEVERE PAIN LEVEL 7-10 Last administered on 08/05/18 05:23; Admin Dose 6 MG; Start 07/20/18 at 23:30 Nystatin (Nystatin Powder) 1 applic BID TOP Last administered on 08/20/18 08:4 2; Admin Dose 1 APPLIC; Start 07/25/18 at 21:00 Nystatin (Nystatin Oint) 1 applic TID TOP Last administered on 08/20/18 12:54; Admin Dose 1 APPLIC; Start 07/27/18 at 21:00 Hydromorphone HCl (Dilaudid) 1 mg Q3H PRN IV SEVERE PAIN LEVEL 7-10 Last administered on 08/20/18 16:00; Admin Dose 1 MG; Start 07/30/18 at 13:00 Ondansetron HCl (Zofran Odt) 8 mg Q6H PRN ODT NAUSEA AND/OR VOMITING Last adm inistered on 08/20/18 12:42; Admin Dose 8 MG; Start 08/09/18 at 16:00 Spironolactone (Aldactone) 100 mg BID DIURETICS PO Last administered on 08/20/18 05:59; Admin Dose 100 MG; Start 08/11/18 at 06:00 Trazodone HCl (Desyrel) 100 mg HS PRN PO insomnia Last administered on 08/19/18 23:34; Admin Dose 100 MG; Start 08/14/18 at 12:00 Levofloxacin (Levaquin) 500 mg DAILY@06 PO Last administered on 08/20/18 05:59; Admin Dose 500 MG; Start 08/16/18 at 06:00 Furosemide (Lasix) 20 mg DAILY GTB Last administered on 08/20/18 08:35; Admin Dose 20 MG; Start 08/16/18 at 09:00 Lubiprostone (Amitiza) 24 mcg BID PO Last administered on 08/19/18 21:44; Admin Dose 24 MCG; Start 08/17/18 at 21:00 Polyethylene Glycol (Miralax) 17 gm DAILY PO Last administered on 08/19/18 08:59; Admin Dose 17 GM; Start 08/18/18 at 09:00 Methylnaltrexone [place] (Relistor) 12 mg Q48H SC ; Start 08/19/18 at 19:30 Miscellaneous Information (*Order Clarification Bulletin) MEDICATION REQUIRES CLARIFICATI... Q8H XX ; Start 08/19/18 at 19:30; Stop 08/21/18 at 19:29 SKYE JAVED MD Aug 20, 2018 16:04
--- NOTE | 2018-08-20 16:46 | CONS ---
Assessment/Plan Assessment/Plan Hospital Course (Demo Recall) ID PROGRESS NOTE CURRENT ABX: DAY # =>Levaquin # 5 + Rifaximin s/p Doxycycline IV + CIPRO + Vanco Liq PO + Rifaximin 24H INTERVAL SUMMARY * Awake, VSS, nausea x 3 days, feels better after BM today -- doing OK coping very well, DC planning to SNF in process MICRO/OTHER * 07/18/2018 LEFT FOOT WOUND CX: TISSUE (BIOPSY) CULTURE Final Organism 1 K.PNEUMONIAE SSP PNEUMONIAE QUANTITY SCANT GROWTH Organism 2 COAGULASE NEGATIVE STAPH QUANTITY SCANT GROWTH K PNE SPP COAG NEG M.I.C. RX M.I.C. RX --------- --- --------- --- CEFAZOLIN I S CEFOTAXIME S CIPROFLOXACIN <=0.25 S <=0.5 S CLINDAMYCIN <=0.25 S DOXYCYCLINE S ERYTHROMYCIN >=8 R GENTAMICIN <=1 S LEVOFLOXACIN <=0.12 S 0.25 S OXACILLIN <=0.25 S PENICILLIN-G R RIFAMPIN <=0.5 S VANCOMYCIN <=0.5 S TOBRAMYCIN <=1 S TRIMETHOPRIM/SULFAMETHOXAZOLE <=20 S <=10 S * 07/15/18 Wound Cx: WOUND CULTURE Final Organism 1 K.PNEUMONIAE SSP PNEUMONIAE QUANTITY ISOLATED FROM BROTH ONLY * 07/15/18 PARA (-) * 07/08/18 BCx (-) * 07/07/18 (+)C.Diff * 07/06/18 Urine (-) * 07/04/18 BCx (+) GNR BLOOD CULTURE Final Organism 1 K.PNEUMONIAE SSP PNEUMONIAE K PNE SPP M.I.C. RX --------- --- CEFAZOLIN I CEFOTAXIME S CIPROFLOXACIN <=0.25 S GENTAMICIN <=1 S LEVOFLOXACIN <=0.12 S TOBRAMYCIN <=1 S TRIMETHOPRIM/SULFAMETHOXAZOLE <=20 S PHYSICAL EXAMINATION: GENERAL: Afebrile, VSS --NAD HEENT: AT, NC, anicteric NECK: Supple, trach midline CHEST: Equal chest rise bilaterally, without dyspnea on observation HEART: Pulse RRR ABDOMEN: Distended EXTREMITIES: Warm, dry - LLEXT SHIRLEY wrapped SKIN: No rash, no diaphoresis ID ASSESSMENT 48 yo F admit with: 1. GNR Sepsis on admission w/lactic acidosis + BCx (+)GNR Kleb Pneumoniae due to #2 => RESOLVED * Leukocytosis due to C.Diff recurrence 2. Acute cellulitis LLEXT w/ left foot wound == >NO OSTEOMYELITIS * POD# 07/27/18-> s/p LEFT FOOT revision surgery w/application of skin graft * s/p I&D 07/18/28 with wound vac * 07/18/2018 LEFT FOOT WOUND CX: TISSUE (BIOPSY) CULTURE Final Organism 1 K.PNEUMONIAE SSP PNEUMONIAE Organism 2 COAGULASE NEGATIVE STAPH 3. ETOH Cirrhosis with persistent ascites and encephalopathy - improved w/lactulose * Status post paracentesis 07/29/18 & 08/06/18 * Patient is on the transplant list 4. Recurrent C.Diff colitis 5. Oliguric acute kidney injury = improved (-)MRSA Nares ABX ALLERGIES: KNDA INVASIVES: PIV CURRENT ABX: DAY # =>Levaquin # 5 + Rifaximin s/p Doxycycline IV + CIPRO + Vanco Liq PO + Rifaximin ID RECOMMENDATIONS/PLAN: 1. Continue current ABX 2. DC PLANNING TO SNF IN PROCESS . . Consultation Date/Type/Reason Admit Date/Time Jul 04, 2018 at 14:22 Initial Consult Date 07/07/18 Requesting Provider: ANA SPICER Date/Time of Note DATE: 08/20/18 TIME: 16:43 Exam/Review of Systems Exam Vitals Vital Signs Date Temp Pulse Resp B/P (MAP) Pulse Ox O2 O2 Flow FiO2 Time Delivery Rate 08/20/18 98.5 104 17 102/53 94 Room Air 08:52 (69) 08/16/18 2.0 10:14 Intake and Output 08/19/18 08/19/18 08/20/18 1515:00 23:00 07:00 IntakeIntake Total 400 ml 500 ml 480 ml OutputOutput Total 1000 ml BalanceBalance 400 ml -500 ml 480 ml Results Result Diagram: 08/17/18 0535 Medications Medication Current Medications IV Flush (NS 3 ml) 3 ml PER PROTOCOL IV Last administered on 07/26/18 20:08; Admin Dose 3 ML; Start 07/04/18 at 18:30 Docusate Sodium (Colace) 100 mg Q12H PRN PO .CONSTIPATION Last administered on 08/16/18 14:09; Admin Dose 100 MG; Start 07/04/18 at 18:30 Albuterol (Proventil 0.083% (Neb)) 2.5 mg Q4H RESP THERAPY PRN HHN SHORTNESS OF BREATH; Start 07/04/18 at 18:30 Metoclopramide HCl (Reglan) 5 mg Q6H PRN IV NAUSEA Last administered on 08/20/18 15:57; Admin Dose 5 MG; Start 07/05/18 at 10:00 Midodrine (Proamatine) 10 mg TID PO Last administered on 08/20/18 12:42; Admin Dose 10 MG; Start 07/06/18 at 09:00 Albuterol (Ventolin Hfa) 2 puff Q4 INH Last administered on 08/20/18 16:29; Admin Dose 2 PUFF; Start 07/06/18 at 04:30 Rifaximin (Xifaxan) 200 mg TID PO Last administered on 08/20/18 12:42; Admin Dose 200 MG; Start 07/09/18 at 21:00 Sodium Hypochlorite (Dakin'S (Dilute )) 1 applic DAILY IRR Last administe red on 08/19/18 08:59; Admin Dose 1 APPLIC; Start 07/15/18 at 23:45 Simethicone (Mylicon) 80 mg Q6H PRN PO DISTENSION/GAS/BLOATING Last administered on 08/19/18 06:28; Admin Dose 80 MG; Start 07/16/18 at 15:30 Lactulose (Enulose) 10 gm DAILY PO Last administered on 08/20/18 08:33; Admin Dose 10 GM; Start 07/19/18 at 09:00 Diphenhydramine HCl (Benadryl) 25 mg Q8H PRN IV PRURITUS/ITCHING Last ad ministered on 08/04/18 07:15; Admin Dose 25 MG; Start 07/20/18 at 18:30 Morphine Sulfate (morphine) 6 mg Q4H PRN PO SEVERE PAIN LEVEL 7-10 Last administered on 08/05/18 05:23; Admin Dose 6 MG; Start 07/20/18 at 23:30 Nystatin (Nystatin Powder) 1 applic BID TOP Last administered on 08/20/18 08:42; Admin Dose 1 APPLIC; Start 07/25/18 at 21:00 Nystatin (Nystatin Oint) 1 applic TID TOP Last administered on 08/20/18 12:54; Admin Dose 1 APPLIC; Start 07/27/18 at 21:00 Hydromorphone HCl (Dilaudid) 1 mg Q3H PRN IV SEVERE PAIN LEVEL 7-10 Last administered on 08/20/18 16:00; Admin Dose 1 MG; Start 07/30/18 at 13:00 Ondansetron HCl (Zofran Odt) 8 mg Q6H PRN ODT NAUSEA AND/OR VOMITING Last admi nistered on 08/20/18 12:42; Admin Dose 8 MG; Start 08/09/18 at 16:00 Spironolactone (Aldactone) 100 mg BID DIURETICS PO Last administered on 08/20/18 05:59; Admin Dose 100 MG; Start 08/11/18 at 06:00 Trazodone HCl (Desyrel) 100 mg HS PRN PO insomnia Last administered on 08/19/18 23:34; Admin Dose 100 MG; Start 08/14/18 at 12:00 Levofloxacin (Levaquin) 500 mg DAILY@06 PO Last administered on 08/20/18 05:59; Admin Dose 500 MG; Start 08/16/18 at 06:00 Furosemide (Lasix) 20 mg DAILY GTB Last administered on 08/20/18 08:35; Admin Dose 20 MG; Start 08/16/18 at 09:00 Lubiprostone (Amitiza) 24 mcg BID PO Last administered on 08/19/18 21:44; Admin Dose 24 MCG; Start 08/17/18 at 21:00 Polyethylene Glycol (Miralax) 17 gm DAILY PO Last administered on 08/19/18at 08:59; Admin Dose 17 GM; Start 08/18/18 at 09:00 Methylnaltrexone [place] (Relistor) 12 mg Q48H SC ; Start 08/19/18 at 19:30 Miscellaneous Information (*Order Clarification Bulletin) MEDICATION REQUIRES CLARIFICATI... Q8H XX ; Start 08/19/18 at 19:30; Stop 08/21/18 at 19:29 CHRIS BOWEN NP Aug 20, 2018 16:46
[2018-08-20 17:30] VITALS: BP 115/64; PULSE 89; RESP 17
[2018-08-20 20:00] VITALS: BP 102/51; PULSE 84; RESP 18
[2018-08-20] MEDS: traZODone 100 MG TAB PO PRN (21:26)
[2018-08-21] MEDS: ALBUTEROL HFA 8 GM INHALER INH SCH ×6 (01:07→19:40)
[2018-08-21] MEDS: HYDROmorphONE 1 MG/ML SYG IV PRN ×7 (01:08→21:54)
[2018-08-21] MEDS: ONDANSETRON (ODT) 4 MG TAB ODT PRN ×4 (01:43→21:54)
[2018-08-21 02:00] VITALS: BP 96/54; PULSE 99; RESP 18
[2018-08-21] MEDS: METOCLOPRAMIDE 10 MG INJ IV PRN ×3 (03:31→18:51)
[2018-08-21] MEDS: LEVOFLOXACIN 500 MG TAB PO SCH (06:03)
[2018-08-21] MEDS: SPIRONOLACTONE 50 MG TAB PO SCH ×2 (06:06→17:51)
[2018-08-21] MEDS: MIDODRINE 5 MG TAB PO SCH ×3 (08:10→21:55)
[2018-08-21] MEDS: LUBIPROSTONE 24 MCG CAP PO SCH ×2 (08:10→21:54)
[2018-08-21] MEDS: RIFAXIMIN 200 MG TAB PO SCH ×3 (08:10→21:54)
[2018-08-21] MEDS: FUROSEMIDE 20 MG TAB GTB SCH (08:11)
[2018-08-21] MEDS: SODIUM HYPOCHLORITE (1/40) 1 APPLIC BTL IRR SCH (08:15)
[2018-08-21] MEDS: LACTULOSE 30ML CUP PO SCH (08:15)
[2018-08-21] MEDS: POLYETHYLENE GLYCOL 17 GM PACKET PO SCH (08:15)
[2018-08-21] MEDS: NYSTATIN 15 GM OINT TOP SCH ×3 (08:16→19:40)
[2018-08-21] MEDS: NYSTATIN 30 GM POWDER BTL TOP SCH ×2 (08:16→19:40)
[2018-08-21 08:37] VITALS: BP 102/54; PULSE 91; RESP 17
[2018-08-21] MEDS ORDERED: POTASSIUM CHLORIDE 20 MEQ POWDER FOR ORAL SOLN PO ONE (09:30)
[2018-08-21] MEDS ORDERED: MAGNESIUM SULFATE 2 GM/50 ML 50 ML IVPB ONE (10:00)
--- NOTE | 2018-08-21 12:46 | CONS ---
Assessment/Plan Assessment/Plan Hospital Course (Demo Recall) Interval HX- no acute events overnight, tolerating diet well, had BM Yesterday and today am. Denies abdominal pain, no nausea 1. Alcoholic Cirrhosis of liver. -on transplant list at [facility] -AFP wnl 2. Anemia of chronic disease. 3. Pancytopenia secondary to #1 4. 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 5. Cellulitis, status post skin graft and wound VAC. -K. pneumoniae and coagulase neg staph in wound -followed by podiatry 6. Clostridium difficile colitis. -resolved 7. SBP -resolved, treatment complete 8. S/P colonoscopy 08/04 found diverticulosis and external hemorrhoids 9. S/P EGD 08/04 shows congestive gastropathy, esophageal varices 10. Anasarca -on aldactone 50 mg BID PO US of abd 08/01: 1. Coarse nodular liver consistent with cirrhosis. No focal hepatic masses. 2. Status post cholecystectomy. No biliary duct dilatation. 3. Patent portal vein with pulsatile hepatopetal flow. 4. Suspect portal hypertension as demonstrated by moderate ascites. 5. Moderate size right pleural effusion as well. 6. Increased right renal cortical echogenicity suggest medical renal disease 7. Severe constipation narcotic induced PLAN: PRN reglan for nausea Continue amitiza 24 mcg BID and miralax daily Continue Aldactone 100 mg p.o. twice daily and lasix 20 mg QD Salt restriction with fluid restriction Continue present care Paracentesis as needed Monitor for GI bleeding High fiber diet Podiatry following, s/p skin graft D/C planning to SNF in progress Patient seen and examined and plan of care discussed with Dr Bautista Consultation Date/Type/Reason Admit Date/Time Jul 04, 2018 at 14:22 Initial Consult Date 07/07/18 Requesting Provider: ANA SPICER Date/Time of Note DATE: 08/21/18 TIME: 12:43 Exam/Review of Systems Exam Vitals Vital Signs Date Temp Pulse Resp B/P (MAP) Pulse Ox O2 O2 Flow FiO2 Time Delivery Rate 08/21/18 98.6 91 17 102/54 94 Room Air 08:37 (70) Intake and Output 08/20/18 08/20/18 08/21/18 1515:00 23:00 07:00 IntakeIntake Total 200 ml 120 ml OutputOutput Total 400 ml 300 ml BalanceBalance -200 ml -180 ml Constitutional: alert, oriented Psych: no complaints Head: normocephalic Neck: supple, non-tender Respiratory: clear to auscultation Cardiovascular: regular rate and rhythm Gastrointestinal: soft, distended Musculoskeletal: nl extremities to inspection, other (Trace edema to BLE) Extremities: other (Dressing to LLE) 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: STEREOPTICIAN II-XII intact Results Result Diagram: 08/21/18 0435 08/21/18 0435 Results 24hrs Laboratory Tests Test 08/21/18 04:35 White Blood Count 6.7 # Red Blood Count 2.59 L Hemoglobin 8.8 L Hematocrit 26.1 L Mean Corpuscular Volume 100.8 Mean Corpuscular Hemoglobin 34.0 H Mean Corpuscular Hemoglobin Concent 33.7 Red Cell Distribution Width 16.7 H Platelet Count 49 L Mean Platelet Volume 10.6 H Immature Granulocytes % 0.600 H Neutrophils % 59.4 Lymphocytes % 20.9 Monocytes % 16.5 H Eosinophils % 2.3 Basophils % 0.3 Nucleated Red Blood Cells % 0.0 Immature Granulocytes # 0.040 H Neutrophils # 4.0 Lymphocytes # 1.4 Monocytes # 1.1 H Eosinophils # 0.2 Basophils # 0.0 Nucleated Red Blood Cells # 0.0 Sodium Level 131 L Potassium Level 3.2 L Chloride Level 96 L Carbon Dioxide Level 28 Anion Gap 7 Blood Urea Nitrogen 8 Creatinine 0.46 Est Glomerular Filtrat Rate mL/min > 60 Glucose Level 97 Calcium Level 7.9 L Phosphorus Level 3.7 Magnesium Level 1.7 Medications Medication Current Medications IV Flush (NS 3 ml) 3 ml PER PROTOCOL IV Last administered on 07/26/18at 20:08; Admin Dose 3 ML; Start 07/04/18 at 18:30 Docusate Sodium (Colace) 100 mg Q12H PRN PO .CONSTIPATION Last administered on 08/16/18at 14:09; Admin Dose 100 MG; Start 07/04/18 at 18:30 Albuterol (Proventil 0.083% (Neb)) 2.5 mg Q4H RESP THERAPY PRN HHN SHORTNESS OF BREATH; Start 07/04/18 at 18:30 Metoclopramide HCl (Reglan) 5 mg Q6H PRN IV NAUSEA Last administered on 08/21at 11:22; Admin Dose 5 MG; Start 07/05/18 at 10:00 Midodrine (Proamatine) 10 mg TID PO Last administered on 08/21/18 08:10; Admin Dose 10 MG; Start 07/06/18 at 09:00 Albuterol (Ventolin Hfa) 2 puff Q4 INH Last administered on 08/21/18 08:15; Admin Dose 2 PUFF; Start 07/06/18 at 04:30 Rifaximin (Xifaxan) 200 mg TID PO Last administered on 08/21/18 08:10; Admin Dose 200 MG; Start 07/09/18 at 21:00 Sodium Hypochlorite (Dakin'S (Dilute )) 1 applic DAILY IRR Last administered on 08/21/18 08:15; Admin Dose 1 APPLIC; Start 07/15/18 at 23:45 Simethicone (Mylicon) 80 mg Q6H PRN PO DISTENSION/GAS/BLOATING Last administered on 08/21/18 08:10; Admin Dose 80 MG; Start 07/16/18 at 15:30 Lactulose (Enulose) 10 gm DAILY PO Last administered on 08/21/18 08:15; Admin Dose 10 GM; Start 07/19/18 at 09:00 Diphenhydramine HCl (Benadryl) 25 mg Q8H PRN IV PRURITUS/ITCHING Last administered on 08/04/18 07:15; Admin Dose 25 MG; Start 07/20/18 at 18:30 Morphine Sulfate (morphine) 6 mg Q4H PRN PO SEVERE PAIN LEVEL 7-10 Last administered on 08/05/18 05:23; Admin Dose 6 MG; Start 07/20/18 at 23:30 Nystatin (Nystatin Powder) 1 applic BID TOP Last administered on 08/21/18 08:16; Admin Dose 1 APPLIC; Start 07/25/18 at 21:00 Nystatin (Nystatin Oint) 1 applic TID TOP Last administered on 08/21/18 08:16; Admin Dose 1 APPLIC; Start 07/27/18 at 21:00 Hydromorphone HCl (Dilaudid) 1 mg Q3H PRN IV SEVERE PAIN LEVEL 7-10 Last administered on 08/21/18 11:22; Admin Dose 1 MG; Start 07/30/18 at 13:00 Ondansetron HCl (Zofran Odt) 8 mg Q6H PRN ODT NAUSEA AND/OR VOMITING Last administered on 08/21/18 08:11; Admin Dose 8 MG; Start 08/09/18 at 16:00 Spironolactone (Aldactone) 100 mg BID DIURETICS PO Last administered on 08/21/18 06:06; Admin Dose 100 MG; Start 08/11/18 at 06:00 Trazodone HCl (Desyrel) 100 mg HS PRN PO insomnia Last administered on 08/20/18 21:26; Admin Dose 100 MG; Start 08/14/18 at 12:00 Levofloxacin (Levaquin) 500 mg DAILY@06 PO Last administered on 08/21/18 06:03; Admin Dose 500 MG; Start 08/16/18 at 06:00 Furosemide (Lasix) 20 mg DAILY GTB Last administered on 08/21/18 08:11; Admin Dose 20 MG; Start 08/16/18 at 09:00 Lubiprostone (Amitiza) 24 mcg BID PO Last administered on 08/21/18 08:10; Admin Dose 24 MCG; Start 08/17/18 at 21:00 Polyethylene Glycol (Miralax) 17 gm DAILY PO Last administered on 08/19/18at 08:59; Admin Dose 17 GM; Start 08/18/18 at 09:00 Methylnaltrexone [place] (Relistor) 12 mg Q48H SC ; Start 08/19/18 at 19:30 Miscellaneous Information (*Order Clarification Bulletin) MEDICATION REQUIRES CLARIFICATI... Q8H XX ; Start 08/19/18 at 19:30; Stop 08/21/18 at 19:29 CATARINO JONES NP Aug 21, 2018 12:46
--- NOTE | 2018-08-21 14:11 | CONS ---
Assessment/Plan Assessment/Plan Hospital Course (Demo Recall) ID PROGRESS NOTE CURRENT ABX: DAY # =>Levaquin # 6 + Rifaximin s/p Doxycycline IV + CIPRO + Vanco Liq PO + Rifaximin 24H INTERVAL SUMMARY * Lethargic today -- jaundice much improved, no fevers, VSS --> DC planning to SNF in process MICRO/OTHER * 07/18/2018 LEFT FOOT WOUND CX: TISSUE (BIOPSY) CULTURE Final Organism 1 K.PNEUMONIAE SSP PNEUMONIAE QUANTITY SCANT GROWTH Organism 2 COAGULASE NEGATIVE STAPH QUANTITY SCANT GROWTH K PNE SPP COAG NEG M.I.C. RX M.I.C. RX --------- --- --------- --- CEFAZOLIN I S CEFOTAXIME S CIPROFLOXACIN <=0.25 S <=0.5 S CLINDAMYCIN <=0.25 S DOXYCYCLINE S ERYTHROMYCIN >=8 R GENTAMICIN <=1 S LEVOFLOXACIN <=0.12 S 0.25 S OXACILLIN <=0.25 S PENICILLIN-G R RIFAMPIN <=0.5 S VANCOMYCIN <=0.5 S TOBRAMYCIN <=1 S TRIMETHOPRIM/SULFAMETHOXAZOLE <=20 S <=10 S * 07/15/18 Wound Cx: WOUND CULTURE Final Organism 1 K.PNEUMONIAE SSP PNEUMONIAE QUANTITY ISOLATED FROM BROTH ONLY * 07/15/18 PARA (-) * 07/08/18 BCx (-) * 07/07/18 (+)C.Diff * 07/06/18 Urine (-) * 07/04/18 BCx (+) GNR BLOOD CULTURE Final Organism 1 K.PNEUMONIAE SSP PNEUMONIAE K PNE SPP M.I.C. RX --------- --- CEFAZOLIN I CEFOTAXIME S CIPROFLOXACIN <=0.25 S GENTAMICIN <=1 S LEVOFLOXACIN <=0.12 S TOBRAMYCIN <=1 S TRIMETHOPRIM/SULFAMETHOXAZOLE <=20 S PHYSICAL EXAMINATION: GENERAL: Afebrile, VSS --NAD HEENT: AT, NC, anicteric NECK: Supple, trach midline CHEST: Equal chest rise bilaterally, without dyspnea on observation HEART: Pulse RRR ABDOMEN: Distended EXTREMITIES: Warm, dry - LLEXT SHIRLEY wrapped SKIN: No rash, no diaphoresis ID ASSESSMENT 48 yo F admit with: 1. GNR Sepsis on admission w/lactic acidosis + BCx (+)GNR Kleb Pneumoniae due to #2 => RESOLVED * Leukocytosis due to C.Diff recurrence 2. Acute cellulitis LLEXT w/ left foot wound == >NO OSTEOMYELITIS * POD# 07/27/18-> s/p LEFT FOOT revision surgery w/application of skin graft * s/p I&D 07/18/28 with wound vac * 07/18/2018 LEFT FOOT WOUND CX: TISSUE (BIOPSY) CULTURE Final Organism 1 K.PNEUMONIAE SSP PNEUMONIAE Organism 2 COAGULASE NEGATIVE STAPH 3. ETOH Cirrhosis with persistent ascites and encephalopathy - improved w/lactulose * Status post paracentesis 07/29/18 & 08/06/18 * Patient is on the transplant list 4. Recurrent C.Diff colitis 5. Oliguric acute kidney injury = improved (-)MRSA Nares ABX ALLERGIES: KNDA INVASIVES: PIV CURRENT ABX: DAY # =>Levaquin # 6 + Rifaximin s/p Doxycycline IV + CIPRO + Vanco Liq PO + Rifaximin ID RECOMMENDATIONS/PLAN: 1. Continue current ABX 2. DC PLANNING TO SNF IN PROCESS . . Consultation Date/Type/Reason Admit Date/Time Jul 04, 2018 at 14:22 Initial Consult Date 07/07/18 Requesting Provider: ANA SPICER Date/Time of Note DATE: 08/21/18 TIME: 14:10 Exam/Review of Systems Exam Vitals Vital Signs Date Temp Pulse Resp B/P (MAP) Pulse Ox O2 O2 Flow FiO2 Time Delivery Rate 08/21/18 98.6 91 17 102/54 94 Room Air 08:37 (70) Intake and Output 08/20/18 08/20/18 08/21/18 1515:00 23:00 07:00 IntakeIntake Total 200 ml 120 ml OutputOutput Total 400 ml 300 ml BalanceBalance -200 ml -180 ml Results Result Diagram: 08/21/1843408/21/185 Results 24hrs Laboratory Tests Test 08/21/18 04:35 White Blood Count 6.7 # Red Blood Count 2.59 L Hemoglobin 8.8 L Hematocrit 26.1 L Mean Corpuscular Volume 100.8 Mean Corpuscular Hemoglobin 34.0 H Mean Corpuscular Hemoglobin Concent 33.7 Red Cell Distribution Width 16.7 H Platelet Count 49 L Mean Platelet Volume 10.6 H Immature Granulocytes % 0.600 H Neutrophils % 59.4 Lymphocytes % 20.9 Monocytes % 16.5 H Eosinophils % 2.3 Basophils % 0.3 Nucleated Red Blood Cells % 0.0 Immature Granulocytes # 0.040 H Neutrophils # 4.0 Lymphocytes # 1.4 Monocytes # 1.1 H Eosinophils # 0.2 Basophils # 0.0 Nucleated Red Blood Cells # 0.0 Sodium Level 131 L Potassium Level 3.2 L Chloride Level 96 L Carbon Dioxide Level 28 Anion Gap 7 Blood Urea Nitrogen 8 Creatinine 0.46 Est Glomerular Filtrat Rate mL/min > 60 Glucose Level 97 Calcium Level 7.9 L Phosphorus Level 3.7 Magnesium Level 1.7 Medications Medication Current Medications IV Flush (NS 3 ml) 3 ml PER PROTOCOL IV Last administered on 07/26/18at 20:08; Admin Dose 3 ML; Start 07/04/18 at 18:30 Docusate Sodium (Colace) 100 mg Q12H PRN PO .CONSTIPATION Last administered on 08/16/18at 14:09; Admin Dose 100 MG; Start 07/04/18 at 18:30 Albuterol (Proventil 0.083% (Neb)) 2.5 mg Q4H RESP THERAPY PRN HHN SHORTNESS OF BREATH; Start 07/04/18 at 18:30 Metoclopramide HCl (Reglan) 5 mg Q6H PRN IV NAUSEA Last administered on 08/21/18at 11:22; Admin Dose 5 MG; Start 07/05/18 at 10:00 Midodrine (Proamatine) 10 mg TID PO Last administered on 08/21/18at 12:54; Admin Dose 10 MG; Start 07/06/18 at 09:00 Albuterol (Ventolin Hfa) 2 puff Q4 INH Last administered on 08/21/18 12:53; Admin Dose 2 PUFF; Start 07/06/18 at 04:30 Rifaximin (Xifaxan) 200 mg TID PO Last administered on 08/21/18 12:54; Admin Dose 200 MG; Start 07/09/18 at 21:00 Sodium Hypochlorite (Dakin'S (Dilute )) 1 applic DAILY IRR Last administered on 08/21/18 08:15; Admin Dose 1 APPLIC; Start 07/15/18 at 23:45 Simethicone (Mylicon) 80 mg Q6H PRN PO DISTENSION/GAS/BLOATING Last administered on 08/21/18 08:10; Admin Dose 80 MG; Start 07/16/18 at 15:30 Lactulose (Enulose) 10 gm DAILY PO Last administered on 08/21/18 08:15; Admin Dose 10 GM; Start 07/19/18 at 09:00 Diphenhydramine HCl (Benadryl) 25 mg Q8H PRN IV PRURITUS/ITCHING Last administered on 08/04/18 07:15; Admin Dose 25 MG; Start 07/20/18 at 18:30 Morphine Sulfate (morphine) 6 mg Q4H PRN PO SEVERE PAIN LEVEL 7-10 Last administered on 08/05/18 05:23; Admin Dose 6 MG; Start 07/20/18 at 23:30 Nystatin (Nystatin Powder) 1 applic BID TOP Last administered on 08/21/18 08:16; Admin Dose 1 APPLIC; Start 07/25/18 at 21:00 Nystatin (Nystatin Oint) 1 applic TID TOP Last administered on 08/21/18 12:54; Admin Dose 1 APPLIC; Start 07/27/18 at 21:00 Hydromorphone HCl (Dilaudid) 1 mg Q3H PRN IV SEVERE PAIN LEVEL 7-10 Last administered on 08/21/18 11:22; Admin Dose 1 MG; Start 07/30/18 at 13:00 Ondansetron HCl (Zofran Odt) 8 mg Q6H PRN ODT NAUSEA AND/OR VOMITING Last administered on 08/21/18 08:11; Admin Dose 8 MG; Start 08/09/18 at 16:00 Spironolactone (Aldactone) 100 mg BID DIURETICS PO Last administered on 08/21/18at 06:06; Admin Dose 100 MG; Start 08/11/18 at 06:00 Trazodone HCl (Desyrel) 100 mg HS PRN PO insomnia Last administered on 08/20/18at 21:26; Admin Dose 100 MG; Start 08/14/18 at 12:00 Levofloxacin (Levaquin) 500 mg DAILY@06 PO Last administered on 08/21/18at 06:03; Admin Dose 500 MG; Start 08/16/18 at 06:00 Furosemide (Lasix) 20 mg DAILY GTB Last administered on 08/21/18at 08:11; Admin Dose 20 MG; Start 08/16/18 at 09:00 Lubiprostone (Amitiza) 24 mcg BID PO Last administered on 08/21/18at 08:10; Admin Dose 24 MCG; Start 08/17/18 at 21:00 Polyethylene Glycol (Miralax) 17 gm DAILY PO Last administered on 08/19/18at 08:59; Admin Dose 17 GM; Start 08/18/18 at 09:00 Methylnaltrexone [place] (Relistor) 12 mg Q48H SC ; Start 08/19/18 at 19:30 Miscellaneous Information (*Order Clarification Bulletin) MEDICATION REQUIRES CLARIFICATI... Q8H XX ; Start 08/19/18 at 19:30; Stop 08/21/18 at 19:29 CHRIS BOWEN NP Aug 21, 2018 14:11
--- NOTE | 2018-08-21 15:17 | PN ---
Date/Time of Note Date/Time of Note DATE: 08/21/18 TIME: 15:16 Assessment/Plan VTE Prophylaxis Risk score (from Ns)>0 risk: 4 SCD applied (from [facility] [place]): No SCD contraindicated: other (not contraindicated) Pharmacological prophylaxis: NA/contraindicated Pharm contraindication: thrombocytopenia Lines/Catheters IV C[facility]ter Type (from [facility] Mid Line Urinary Cath still in place: No Assessment/Plan Assessment/Plan 48 yo female with cirrhosis, sepsis with bacteremia, C Diff colitis and large foot wound Foot wound - s/p skin grafting. Continue wound care. Per patient report podiatry says can be cleared on Wednesday SBP with klebsiella bacteremia: - Abx course per ID Cirrhosis: - Serial paracentesis - Continue diuretics - rifaxamin/lactulose C Diff diarrhea: - s/p PO vanco course Hyponatremia: - Hypervolemic Limit free water PT/OT DIscharge to SNF early next week when cleared by podiatry Result Diagram: 08/21/185 08/21/18434 Subjective 24 Hr Interval Summary Free Text/Dictation No acute overnight events. Still mild nausea and abdominal pain. Exam/Review of Systems Exam Vitals Vital Signs Date Temp Pulse Resp B/P (MAP) Pulse Ox O2 O2 Flow FiO2 Time Delivery Rate 08/21/18 98.6 91 17 102/54 94 Room Air 08:37 (70) Intake and Output 08/20/18 08/20/18 08/21/18 1515:00 23:00 07:00 IntakeIntake Total 200 ml 120 ml OutputOutput Total 400 ml 300 ml BalanceBalance -200 ml -180 ml Exam Gen: Well developed woman lying in bed, no distress Eyes: PERRL, no icterus HEENT: Moist mucous membranes, clear oropharynx Neck: supple, no lymphadenopathy Card: Regular rate and rhythm, no murmurs Pulm: Clear to auscultation bilaterally Abd: Distended, soft. No leaking from paracentesis sites. LLQ with severe induration and excoriations, tender to palpation. Ext: 1+ LE nonpitting edema. Bandaged wounds. Skin: warm, dry, well perfused. Results Results 24hrs Laboratory Tests Test 08/21/18 04:35 White Blood Count 6.7 # Red Blood Count 2.59 L Hemoglobin 8.8 L Hematocrit 26.1 L Mean Corpuscular Volume 100.8 Mean Corpuscular Hemoglobin 34.0 H Mean Corpuscular Hemoglobin Concent 33.7 Red Cell Distribution Width 16.7 H Platelet Count 49 L Mean Platelet Volume 10.6 H Immature Granulocytes % 0.600 H Neutrophils % 59.4 Lymphocytes % 20.9 Monocytes % 16.5 H Eosinophils % 2.3 Basophils % 0.3 Nucleated Red Blood Cells % 0.0 Immature Granulocytes # 0.040 H Neutrophils # 4.0 Lymphocytes # 1.4 Monocytes # 1.1 H Eosinophils # 0.2 Basophils # 0.0 Nucleated Red Blood Cells # 0.0 Sodium Level 131 L Potassium Level 3.2 L Chloride Level 96 L Carbon Dioxide Level 28 Anion Gap 7 Blood Urea Nitrogen 8 Creatinine 0.46 Est Glomerular Filtrat Rate mL/min > 60 Glucose Level 97 Calcium Level 7.9 L Phosphorus Level 3.7 Magnesium Level 1.7 Medications Medication Current Medications IV Flush (NS 3 ml) 3 ml PER PROTOCOL IV Last administered on 07/26/18 20:08; Admin Dose 3 ML; Start 07/04/18 at 18:30 Docusate Sodium (Colace) 100 mg Q12H PRN PO .CONSTIPATION Last administered on 08/16/18 14:09; Admin Dose 100 MG; Start 07/04/18 at 18:30 Albuterol (Proventil 0.083% (Neb)) 2.5 mg Q4H RESP THERAPY PRN HHN SHORTNESS OF BREATH; Start 07/04/18 at 18:30 Metoclopramide HCl (Reglan) 5 mg Q6H PRN IV NAUSEA Last administered on 08/21 11:22; Admin Dose 5 MG; Start 07/05/18 at 10:00 Midodrine (Proamatine) 10 mg TID PO Last administered on 08/21/18 12:54; Admin Dose 10 MG; Start 07/06/18 at 09:00 Albuterol (Ventolin Hfa) 2 puff Q4 INH Last administered on 08/21/18 12:53; Admin Dose 2 PUFF; Start 07/06/18 at 04:30 Rifaximin (Xifaxan) 200 mg TID PO Last administered on 08/21/18 12:54; Admin Dose 200 MG; Start 07/09/18 at 21:00 Sodium Hypochlorite (Dakin'S (Dilute )) 1 applic DAILY IRR Last administered on 08/21/18 08:15; Admin Dose 1 APPLIC; Start 07/15/18 at 23:45 Simethicone (Mylicon) 80 mg Q6H PRN PO DISTENSION/GAS/BLOATING Last administered on 08/21/18 08:10; Admin Dose 80 MG; Start 07/16/18 at 15:30 Lactulose (Enulose) 10 gm DAILY PO Last administered on 08/21/18 08:15; Admin Dose 10 GM; Start 07/19/18 at 09:00 Diphenhydramine HCl (Benadryl) 25 mg Q8H PRN IV PRURITUS/ITCHING Last administered on 08/04/18 07:15; Admin Dose 25 MG; Start 07/20/18 at 18:30 Morphine Sulfate (morphine) 6 mg Q4H PRN PO SEVERE PAIN LEVEL 7-10 Last administered on 08/05/18 05:23; Admin Dose 6 MG; Start 07/20/18 at 23:30 Nystatin (Nystatin Powder) 1 applic BID TOP Last administered on 08/21/18 08:16; Admin Dose 1 APPLIC; Start 07/25/18 at 21:00 Nystatin (Nystatin Oint) 1 applic TID TOP Last administered on 08/21/18 12:54; Admin Dose 1 APPLIC; Start 07/27/18 at 21:00 Hydromorphone HCl (Dilaudid) 1 mg Q3H PRN IV SEVERE PAIN LEVEL 7-10 Last administered on 08/21/18 11:22; Admin Dose 1 MG; Start 07/30/18 at 13:00 Ondansetron HCl (Zofran Odt) 8 mg Q6H PRN ODT NAUSEA AND/OR VOMITING Last administered on 08/21/18 08:11; Admin Dose 8 MG; Start 08/09/18 at 16:00 Spironolactone (Aldactone) 100 mg BID DIURETICS PO Last administered on 08/21/18 06:06; Admin Dose 100 MG; Start 08/11/18 at 06:00 Trazodone HCl (Desyrel) 100 mg HS PRN PO insomnia Last administered on 08/20/18 21:26; Admin Dose 100 MG; Start 08/14/18 at 12:00 Levofloxacin (Levaquin) 500 mg DAILY@06 PO Last administered on 08/21/18at 06:03; Admin Dose 500 MG; Start 08/16/18 at 06:00 Furosemide (Lasix) 20 mg DAILY GTB Last administered on 08/21/18at 08:11; Admin Dose 20 MG; Start 08/16/18 at 09:00 Lubiprostone (Amitiza) 24 mcg BID PO Last administered on 08/21/18at 08:10; Admin Dose 24 MCG; Start 08/17/18 at 21:00 Polyethylene Glycol (Miralax) 17 gm DAILY PO Last administered on 08/19/18at 08:59; Admin Dose 17 GM; Start 08/18/18 at 09:00 Methylnaltrexone [place] (Relistor) 12 mg Q48H SC ; Start 08/19/18 at 19:30 Miscellaneous Information (*Order Clarification Bulletin) MEDICATION REQUIRES CLARIFICATI... Q8H XX ; Start 08/19/18 at 19:30; Stop 08/21/18 at 19:29 SKYE JAVED MD Aug 21, 2018 15:17
[2018-08-21 15:25] VITALS: BP 95/51; PULSE 85; RESP 17
[2018-08-21] MEDS: METHYLNALTREXONE 12 MG/0.6 ML VIAL SC SCH (17:52)
[2018-08-21] MEDS: traZODone 100 MG TAB PO PRN (19:38)
[2018-08-21 20:00] VITALS: BP 99/53; PULSE 85; RESP 19
[2018-08-22] MEDS: ALBUTEROL HFA 8 GM INHALER INH SCH ×6 (00:53→21:28)
[2018-08-22] MEDS: HYDROmorphONE 1 MG/ML SYG IV PRN ×7 (00:53→22:24)
[2018-08-22] MEDS: METOCLOPRAMIDE 10 MG INJ IV PRN ×4 (00:53→18:54)
[2018-08-22 02:20] VITALS: BP 96/53; PULSE 98; RESP 18
[2018-08-22] MEDS: ONDANSETRON (ODT) 4 MG TAB ODT PRN ×4 (04:40→22:24)
[2018-08-22] MEDS: LEVOFLOXACIN 500 MG TAB PO SCH (06:36)
[2018-08-22] MEDS: SPIRONOLACTONE 50 MG TAB PO SCH ×2 (06:39→18:21)
--- NOTE | 2018-08-22 07:47 | CONS ---
Assessment/Plan Assessment/Plan Hospital Course (Demo Recall) 48 yo female with h/o ESLD waiting for liver transplant presents with left foot cellulitis Interval hx: BM 08/20, soft brown. C/O abd pain secondary to ascites. Mild nausea. 1. Alcoholic Cirrhosis of liver. -on transplant list at [facility] -AFP wnl 2. Anemia of chronic disease. 3. Pancytopenia secondary to #1 4. 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 5. Cellulitis, status post skin graft and wound VAC. -K. pneumoniae and coagulase neg staph in wound -followed by podiatry 6. Clostridium difficile colitis. -resolved 7. SBP -resolved, treatment complete 8. S/P colonoscopy 08/04 found diverticulosis and external hemorrhoids 9. S/P EGD 08/04 shows congestive gastropathy, esophageal varices 10. Anasarca -on aldactone 50 mg BID PO US of abd 08/01: 1. Coarse nodular liver consistent with cirrhosis. No focal hepatic masses. 2. Status post cholecystectomy. No biliary duct dilatation. 3. Patent portal vein with pulsatile hepatopetal flow. 4. Suspect portal hypertension as demonstrated by moderate ascites. 5. Moderate size right pleural effusion as well. 6. Increased right renal cortical echogenicity suggest medical renal disease PLAN: Paracentesis with cx/cell ct PRN reglan for nausea Continue bowel regimen Continue Aldactone 100 mg p.o. twice daily and lasix 20 mg QD Salt restriction with fluid restriction Paracentesis as needed Monitor for GI bleeding High fiber diet DC planning for SNF Pt examined and plan of care discussed with Dr. Gómez Consultation Date/Type/Reason Admit Date/Time Jul 04, 2018 at 14:22 Initial Consult Date 07/07/18 Requesting Provider: ANA SPICER Date/Time of Note DATE: 08/22/18 TIME: 07:45 Exam/Review of Systems Exam Vitals Vital Signs Date Temp Pulse Resp B/P (MAP) Pulse Ox O2 O2 Flow FiO2 Time Delivery Rate 08/22/18 99.0 98 18 96/53 (67) 92 02:20 08/21/18 Room Air 15:25 Intake and Output 08/21/18 08/21/18 08/22/18 1515:00 23:00 07:00 IntakeIntake Total 50 ml 440 ml 600 ml BalanceBalance 50 ml 440 ml 600 ml Constitutional: alert, oriented Psych: no complaints Eyes: PERRL, icteric Respiratory: clear to auscultation Cardiovascular: regular rate and rhythm Gastrointestinal: ascites, other (pitting edema) Musculoskeletal: other (LLE bandages) Extremities: edema 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: nl mental status, nl speech Results Result Diagram: 08/21/185 08/21/18434 Medications Medication Current Medications IV Flush (NS 3 ml) 3 ml PER PROTOCOL IV Last administered on 07/26/18 20:08; Admin Dose 3 ML; Start 07/04/18 at 18:30 Docusate Sodium (Colace) 100 mg Q12H PRN PO .CONSTIPATION Last administered on 08/16/18 14:09; Admin Dose 100 MG; Start 07/04/18 at 18:30 Albuterol (Proventil 0.083% (Neb)) 2.5 mg Q4H RESP THERAPY PRN HHN SHORTNESS OF BREATH; Start 07/04/18 at 18:30 Metoclopramide HCl (Reglan) 5 mg Q6H PRN IV NAUSEA Last administered on 06:39; Admin Dose 5 MG; Start 07/05/18 at 10:00 Midodrine (Proamatine) 10 mg TID PO Last administered on 08/21/18 21:55; Admin Dose 10 MG; Start 07/06/18 at 09:00 Albuterol (Ventolin Hfa) 2 puff Q4 INH Last administered on 08/22/18 06:36; Admin Dose 2 PUFF; Start 07/06/18 at 04:30 Rifaximin (Xifaxan) 200 mg TID PO Last administered on 08/21/18 21:54; Admin Dose 200 MG; Start 07/09/18 at 21:00 Sodium Hypochlorite (Dakin'S (Dilute )) 1 applic DAILY IRR Last administered on 08/21/18 08:15; Admin Dose 1 APPLIC; Start 07/15/18 at 23:45 Simethicone (Mylicon) 80 mg Q6H PRN PO DISTENSION/GAS/BLOATING Last administered on 08/21/18 19:39; Admin Dose 80 MG; Start 07/16/18 at 15:30 Lactulose (Enulose) 10 gm DAILY PO Last administered on 08/21/18 08:15; Admin Dose 10 GM; Start 07/19/18 at 09:00 Diphenhydramine HCl (Benadryl) 25 mg Q8H PRN IV PRURITUS/ITCHING Last administered on 08/04/18 07:15; Admin Dose 25 MG; Start 07/20/18 at 18:30 Morphine Sulfate (morphine) 6 mg Q4H PRN PO SEVERE PAIN LEVEL 7-10 Last administered on 08/05/18 05:23; Admin Dose 6 MG; Start 07/20/18 at 23:30 Nystatin (Nystatin Powder) 1 applic BID TOP Last administered on 08/21/18 19:40; Admin Dose 1 APPLIC; Start 07/25/18 at 21:00 Nystatin (Nystatin Oint) 1 applic TID TOP Last administered on 08/21/18 19:40; Admin Dose 1 APPLIC; Start 07/27/18 at 21:00 Hydromorphone HCl (Dilaudid) 1 mg Q3H PRN IV SEVERE PAIN LEVEL 7-10 Last administered on 08/22/18 04:40; Admin Dose 1 MG; Start 07/30/18 at 13:00 Ondansetron HCl (Zofran Odt) 8 mg Q6H PRN ODT NAUSEA AND/OR VOMITING Last administered on 08/22/18 04:40; Admin Dose 8 MG; Start 08/09/18 at 16:00 Spironolactone (Aldactone) 100 mg BID DIURETICS PO Last administered on 08/22/18 06:39; Admin Dose 100 MG; Start 08/11/18 at 06:00 Trazodone HCl (Desyrel) 100 mg HS PRN PO insomnia Last administered on 08/21/18 19:38; Admin Dose 100 MG; Start 08/14/18 at 12:00 Levofloxacin (Levaquin) 500 mg DAILY@06 PO Last administered on 08/22/18 06:3 6; Admin Dose 500 MG; Start 08/16/18 at 06:00 Furosemide (Lasix) 20 mg DAILY GTB Last administered on 08/21/18 08:11; Admin Dose 20 MG; Start 08/16/18 at 09:00 Lubiprostone (Amitiza) 24 mcg BID PO Last administered on 3/17/19at 21:54; Admin Dose 24 MCG; Start 08/17/18 at 21:00 Polyethylene Glycol (Miralax) 17 gm DAILY PO Last administered on 08/19/18at 08:59; Admin Dose 17 GM; Start 08/18/18 at 09:00 Methylnaltrexone [place] (Relistor) 12 mg Q48H SC ; Start 08/19/18 at 19:30 SARA EISENBERG Aug 22, 2018 07:47
[2018-08-22] MEDS: LACTULOSE 30ML CUP PO SCH (08:13)
[2018-08-22] MEDS: MIDODRINE 5 MG TAB PO SCH ×3 (08:14→21:30)
[2018-08-22] MEDS: RIFAXIMIN 200 MG TAB PO SCH ×3 (08:14→21:29)
[2018-08-22] MEDS: POLYETHYLENE GLYCOL 17 GM PACKET PO SCH (08:15)
[2018-08-22] MEDS: FUROSEMIDE 20 MG TAB GTB SCH (08:15)
[2018-08-22] MEDS: LUBIPROSTONE 24 MCG CAP PO SCH ×2 (08:15→21:30)
[2018-08-22] MEDS: NYSTATIN 15 GM OINT TOP SCH ×3 (08:18→21:36)
[2018-08-22] MEDS: NYSTATIN 30 GM POWDER BTL TOP SCH ×2 (08:18→21:36)
[2018-08-22] MEDS: SODIUM HYPOCHLORITE (1/40) 1 APPLIC BTL IRR SCH (08:18)
[2018-08-22 08:21] VITALS: BP 106/53; PULSE 89; RESP 17
--- NOTE | 2018-08-22 09:46 | PN ---
Date/Time of Note Date/Time of Note DATE: 08/22/18 TIME: 09:46 Assessment/Plan VTE Prophylaxis Risk score (from Ns)>0 risk: 3 SCD applied (from Ns): Yes Pharmacological prophylaxis: NA/contraindicated Pharm contraindication: liver dx Lines/Catheters IV [facility] Mid Line Urinary Cath still in place: No Assessment/Plan Assessment/Plan 1. Left foot wound s/p debridement with wound VAC and skin graft - Podiatry on board and per patient will plan to look at graft tomorrow - s/p skin allograft and wound vac placement 07/27/18 - MRI foot shows no evidence of OM - Completing course of antibiotics 2. SBP with klebsiella bacteremia: - Last day of Levaquin tomorrow 3. Cirrhosis with ascites - Status post paracentesis x 7 - Continue on Aldactone 100mg BID and Lasix as BP will tolerate - Follows with Dr. Gómez as outpatient, liver transplant preop EGD and colonoscopy shows nonbleeding varices and diverticulosis 4. Anemia - most likely 2/2 liver dz 5. Acute kidney injury likely secondary to hemodynamics and intravascular volume depletion-resolved - Nephrology consultation appreciated 6. Anemia of chronic disease - stable 7. C Diff diarrhea - s/p PO vanco course - resolved - repeat ordered but given on Lactulose, lab will not process sample 8. Left breast implant rupture - MRI ordered but patient unable to tolerate position needing to be placed in - patient has had saline implant in for the past 20 years. Has had issues with it in the past given behind the muscle 9. Disposition - Once cleared by Podiatry, will d/c to [facility] Result Diagram: 08/21/18 0435 08/22/18 0645 Results 24hrs Laboratory Tests Test 08/22/18 06:45 08/22/18 08:44 Sodium Level 134 L Potassium Level 3.6 Chloride Level 99 Carbon Dioxide Level 27 Anion Gap 8 Blood Urea Nitrogen 7 Creatinine 0.48 Est Glomerular Filtrat Rate mL/min > 60 Glucose Level 103 Calcium Level 7.6 L Total Bilirubin 7.0 H Direct Bilirubin 1.20 H Indirect Bilirubin 5.8 H Aspartate Amino Transf (AST/SGOT) 33 Alanine Aminotransferase (ALT/SGPT) 40 Alkaline Phosphatase 91 Total Protein 5.0 L Albumin 2.2 L Globulin 2.80 Albumin/Globulin Ratio 0.78 Prothrombin Time 28.2 H Prothrombin Time Ratio 2.2 INR International Normalized Ratio 2.64 Subjective 24 Hr Interval Summary Free Text/Dictation Patient complaining of left sided abdominal pain and last BM with 08/20. Discussed should be experiencing 3-4 BMs a day on lactulose. Went for paracentesis this am but no fluid removed Exam/Review of Systems Exam Vitals Vital Signs Date Temp Pulse Resp B/P (MAP) Pulse Ox O2 O2 Flow FiO2 Time Delivery Rate 08/22/18 98.8 89 17 106/53 95 Room Air 08:21 (70) Intake and Output 08/21/18 08/21/18 08/22/18 1414:59 22:59 06:59 IntakeIntake Total 50 ml 440 ml 600 ml BalanceBalance 50 ml 440 ml 600 ml Exam General: Patient is laying in bed and answers questions appropriately Eyes: EOMI, pupils reactive to light Neck: Supple, nontender, midline Respiratory: Clear to auscultation bilaterally. no wheezing or rhonchi Cardiovascular: regular rate and rhythm, no obvious murmurs Gastrointestinal: soft, tender LLQ, distended with fluid shift, bowel sounds heard. 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: Moves all extremities spontaneously Ext: LLE dressing in place. swelling of legs bilaterally Skin: No new skin lesions Results Results 24hrs Laboratory Tests Test 08/22/18 06:45 08/22/18 08:44 Sodium Level 134 L Potassium Level 3.6 Chloride Level 99 Carbon Dioxide Level 27 Anion Gap 8 Blood Urea Nitrogen 7 Creatinine 0.48 Est Glomerular Filtrat Rate mL/min > 60 Glucose Level 103 Calcium Level 7.6 L Total Bilirubin 7.0 H Direct Bilirubin 1.20 H Indirect Bilirubin 5.8 H Aspartate Amino Transf (AST/SGOT) 33 Alanine Aminotransferase (ALT/SGPT) 40 Alkaline Phosphatase 91 Total Protein 5.0 L Albumin 2.2 L Globulin 2.80 Albumin/Globulin Ratio 0.78 Prothrombin Time 28.2 H Prothrombin Time Ratio 2.2 INR International Normalized Ratio 2.64 Medications Medication Current Medications IV Flush (NS 3 ml) 3 ml PER PROTOCOL IV Last administered on 07/26/18at 20:08; Admin Dose 3 ML; Start 07/04/18 at 18:30 Docusate Sodium (Colace) 100 mg Q12H PRN PO .CONSTIPATION Last administered on 08/16/18at 14:09; Admin Dose 100 MG; Start 07/04/18 at 18:30 Albuterol (Proventil 0.083% (Neb)) 2.5 mg Q4H RESP THERAPY PRN HHN SHORTNESS OF BREATH; Start 07/04/18 at 18:30 Metoclopramide HCl (Reglan) 5 mg Q6H PRN IV NAUSEA Last administered on 08/22/18 06:39; Admin Dose 5 MG; Start 07/05/18 at 10:00 Midodrine (Proamatine) 10 mg TID PO Last administered on 08/22/18 08:14; Admin Dose 10 MG; Start 07/06/18 at 09:00 Albuterol (Ventolin Hfa) 2 puff Q4 INH Last administered on 08/22/18 08:18; Admin Dose 2 PUFF; Start 07/06/18 at 04:30 Rifaximin (Xifaxan) 200 mg TID PO Last administered on 08/22/18 08:14; Admin Dose 200 MG; Start 07/09/18 at 21:00 Sodium Hypochlorite (Dakin'S (Dilute )) 1 applic DAILY IRR Last administered on 08/21/18 08:15; Admin Dose 1 APPLIC; Start 07/15/18 at 23:45 Simethicone (Mylicon) 80 mg Q6H PRN PO DISTENSION/GAS/BLOATING Last administered on 08/22/18 08:15; Admin Dose 80 MG; Start 07/16/18 at 15:30 Lactulose (Enulose) 10 gm DAILY PO Last administered on 08/22/18 08:13; Admin Dose 10 GM; Start 07/19/18 at 09:00 Diphenhydramine HCl (Benadryl) 25 mg Q8H PRN IV PRURITUS/ITCHING Last administered on 08/04/18 07:15; Admin Dose 25 MG; Start 07/20/18 at 18:30 Morphine Sulfate (morphine) 6 mg Q4H PRN PO SEVERE PAIN LEVEL 7-10 Last administered on 08/05/18 05:23; Admin Dose 6 MG; Start 07/20/18 at 23:30 Nystatin (Nystatin Powder) 1 applic BID TOP Last administered on 08/22/18 08:18; Admin Dose 1 APPLIC; Start 07/25/18 at 21:00 Nystatin (Nystatin Oint) 1 applic TID TOP Last administered on 08/22/18 08:18; Admin Dose 1 APPLIC; Start 07/27/18 at 21:00 Hydromorphone HCl (Dilaudid) 1 mg Q3H PRN IV SEVERE PAIN LEVEL 7-10 Last administered on 08/22/18 08:12; Admin Dose 1 MG; Start 07/30/18 at 13:00 Ondansetron HCl (Zofran Odt) 8 mg Q6H PRN ODT NAUSEA AND/OR VOMITING Last administered on 08/22/18 08:12; Admin Dose 8 MG; Start 08/09/18 at 16:00 Spironolactone (Aldactone) 100 mg BID DIURETICS PO Last administered on 08/22/18 06:39; Admin Dose 100 MG; Start 08/11/18 at 06:00 Trazodone HCl (Desyrel) 100 mg HS PRN PO insomnia Last administered on 08/21/18 at 19:38; Admin Dose 100 MG; Start 08/14/18 at 12:00 Levofloxacin (Levaquin) 500 mg DAILY@06 PO Last administered on 08/22/18 06:36; Admin Dose 500 MG; Start 08/16/18 at 06:00 Furosemide (Lasix) 20 mg DAILY GTB Last administered on 08/22/18 08:15; Admin Dose 20 MG; Start 08/16/18 at 09:00 Lubiprostone (Amitiza) 24 mcg BID PO Last administered on 08/22/18 08:15; Admin Dose 24 MCG; Start 08/17/18 at 21:00 Polyethylene Glycol (Miralax) 17 gm DAILY PO Last administered on 08/19/18 08:59; Admin Dose 17 GM; Start 08/18/18 at 09:00 Methylnaltrexone [place] (Relistor) 12 mg Q48H SC ; Start 08/19/18 at 19:30 LOUIE RUIZ MD Aug 22, 2018 09:46
[2018-08-22] MEDS ORDERED: CEPASTAT LOZENGE MT PRN (12:00)
--- NOTE | 2018-08-22 13:19 | CONS ---
Assessment/Plan Assessment/Plan Hospital Course (Demo Recall) Alert, feels good, no fevers Microbiology: Blood culture on admission grew Klebsiella pneumonia on July 04 susceptible to Cipro and Levaquin, stool for C. difficile positive, urine culture negative MRSA swab negative, L foot wound culture grew Klebsiella pneumoniae susceptible to ming quinolones and staph species. Repeat left foot wound culture growing coag negative staph species Physical examination: Chronically ill-appearing middle-aged woman who is in no distress. Head atraumatic normocephalic sclera nonicteric vehicle mucosa dry neck is supple chest rise symmetrical breath sounds diminished at bases. Heart: S1-S2. Abdomen soft bowel sounds present extremities with bilateral edema, left lower extremity dressing intact Assessment: 1. S/p sepsis with Klebsiella pneumonia bacteremia likely secondary to SBP vs #2 2. Left lower extremity abscess/ cellulitis==> neg OM, s/p i/d 07/18/18 with wound vac, s/p skin graft 08/16/18 3. C. difficile colitis==> treated 4. Alcoholic liver cirrhosis==> on tx list at [facility] 5. Recurrent ascites s/p multiple paracentesis 6. Anemia and thrombocytopenia Plan: Remains stable, dc Levaquin in am Consultation Date/Type/Reason Admit Date/Time Jul 04, 2018 at 14:22 Initial Consult Date 07/07/18 Type of Consult id Requesting Provider: ANA SPICER Date/Time of Note DATE: 08/22/18 TIME: 13:19 Exam/Review of Systems Exam Vitals Vital Signs Date Temp Pulse Resp B/P (MAP) Pulse Ox O2 O2 Flow FiO2 Time Delivery Rate 08/22/18 98.8 89 17 106/53 95 Room Air 08:21 (70) Intake and Output 08/21/18 08/21/18 08/22/18 1515:00 23:00 07:00 IntakeIntake Total 50 ml 440 ml 600 ml BalanceBalance 50 ml 440 ml 600 ml Results Result Diagram: 08/21/18 0435 08/22/18 0645 Results 24hrs Laboratory Tests Test 08/22/18 06:45 08/22/18 08:44 Sodium Level 134 L Potassium Level 3.6 Chloride Level 99 Carbon Dioxide Level 27 Anion Gap 8 Blood Urea Nitrogen 7 Creatinine 0.48 Est Glomerular Filtrat Rate mL/min > 60 Glucose Level 103 Calcium Level 7.6 L Total Bilirubin 7.0 H Direct Bilirubin 1.20 H Indirect Bilirubin 5.8 H Aspartate Amino Transf (AST/SGOT) 33 Alanine Aminotransferase (ALT/SGPT) 40 Alkaline Phosphatase 91 Total Protein 5.0 L Albumin 2.2 L Globulin 2.80 Albumin/Globulin Ratio 0.78 Prothrombin Time 28.2 H Prothrombin Time Ratio 2.2 INR International Normalized Ratio 2.64 Medications Medication Current Medications IV Flush (NS 3 ml) 3 ml PER PROTOCOL IV Last administered on 07/26/18 20:08; Admin Dose 3 ML; Start 07/04/18 at 18:30 Docusate Sodium (Colace) 100 mg Q12H PRN PO .CONSTIPATION Last administered on 08/16/18 14:09; Admin Dose 100 MG; Start 07/04/18 at 18:30 Albuterol (Proventil 0.083% (Neb)) 2.5 mg Q4H RESP THERAPY PRN HHN SHORTNESS OF BREATH; Start 07/04/18 at 18:30 Metoclopramide HCl (Reglan) 5 mg Q6H PRN IV NAUSEA Last administered on 08/22/18 11:35; Admin Dose 5 MG; Start 07/05/18 at 10:00 Midodrine (Proamatine) 10 mg TID PO Last administered on 08/22/18 13:06; Admin Dose 10 MG; Start 07/06/18 at 09:00 Albuterol (Ventolin Hfa) 2 puff Q4 INH Last administered on 08/22/18 13:07; Admin Dose 2 PUFF; Start 07/06/18 at 04:30 Rifaximin (Xifaxan) 200 mg TID PO Last administered on 08/22/18 13:07; Admin Dose 200 MG; Start 07/09/18 at 21:00 Sodium Hypochlorite (Dakin'S (Dilute 40)) 1 applic DAILY IRR Last administered on 08/21/18 08:15; Admin Dose 1 APPLIC; Start 07/15/18 at 23:45 Simethicone (Mylicon) 80 mg Q6H PRN PO DISTENSION/GAS/BLOATING Last administered on 08/22/18 08:15; Admin Dose 80 MG; Start 07/16/18 at 15:30 Lactulose (Enulose) 10 gm DAILY PO Last administered on 08/22/18 08:13; Admin Dose 10 GM; Start 07/19/18 at 09:00 Diphenhydramine HCl (Benadryl) 25 mg Q8H PRN IV PRURITUS/ITCHING Last administered on 08/04/18 07:15; Admin Dose 25 MG; Start 07/20/18 at 18:30 Morphine Sulfate (morphine) 6 mg Q4H PRN PO SEVERE PAIN LEVEL 7-10 Last administered on 08/05/18 05:23; Admin Dose 6 MG; Start 07/20/18 at 23:30 Nystatin (Nystatin Powder) 1 applic BID TOP Last administered on 08/22/18 08:18; Admin Dose 1 APPLIC; Start 07/25/18 at 21:00 Nystatin (Nystatin Oint) 1 applic TID TOP Last administered on 08/22/18 13:07; Admin Dose 1 APPLIC; Start 07/27/18 at 21:00 Hydromorphone HCl (Dilaudid) 1 mg Q3H PRN IV SEVERE PAIN LEVEL 7-10 Last administered on 08/22/18 11:35; Admin Dose 1 MG; Start 07/30/18 at 13:00 Ondansetron HCl (Zofran Odt) 8 mg Q6H PRN ODT NAUSEA AND/OR VOMITING Last administered on 08/22/18 08:12; Admin Dose 8 MG; Start 08/09/18 at 16:00 Spironolactone (Aldactone) 100 mg BID DIURETICS PO Last administered on 08/22/18 06:39; Admin Dose 100 MG; Start 08/11/18 at 06:00 Trazodone HCl (Desyrel) 100 mg HS PRN PO insomnia Last administered on 08/21/18 19:38; Admin Dose 100 MG; Start 08/14/18 at 12:00 Levofloxacin (Levaquin) 500 mg DAILY@06 PO Last administered on 08/22/18 06:36; Admin Dose 500 MG; Start 08/16/18 at 06:00 Furosemide (Lasix) 20 mg DAILY GTB Last administered on 08/22/18 08:15; Admin Dose 20 MG; Start 08/16/18 at 09:00 Lubiprostone (Amitiza) 24 mcg BID PO Last administered on 3/18/19at 08:15; Admin Dose 24 MCG; Start 08/17/18 at 21:00 Polyethylene Glycol (Miralax) 17 gm DAILY PO Last administered on 08/19/18at 08:59; Admin Dose 17 GM; Start 08/18/18 at 09:00 Methylnaltrexone [place] (Relistor) 12 mg Q48H SC ; Start 08/19/18 at 19:30 Phenol (Cepastat Lozenge) 1 lozenge Q1H PRN MT sore throat; Start 08/22/18 at 12:00 EMA MUELLER NP Aug 22, 2018 13:19
[2018-08-22 15:34] VITALS: BP 106/53; PULSE 86; RESP 17
--- NOTE | 2018-08-22 17:02 | CONS ---
Assessment/Plan Assessment/Plan Assessment/Plan (Daily) 1. Left foot abscess with tissue necrosis, left foot - s/p split thickness skin graft application (DOS: 08/16/18) 2. Cellulitis, left lower extremity - resolved 3. Sepsis with Klebsiella pneumoniae bacteremia. 4. Clostridium difficile colitis. 5. Alcoholic liver cirrhosis with recurrent ascites. 6. Anemia and thrombocytopenia. Plan Donor site dressings were changed. Patient's left lower extremity dressings to remain clean dry and intact no changes necessary. Patient has placement at SNF. Patient is stable from podiatry stand point for discharge. Patient may follow up in outpatient [facility] wound care clinic. Consultation Date/Type/Reason Admit Date/Time Jul 04, 2018 at 14:22 Initial Consult Date 07/07/18 Requesting Provider: ANA SPICER Date/Time of Note DATE: 08/22/18 TIME: 17:02 24 HR Interval Summary Free Text/Dictation No acute events overnight Exam/Review of Systems Exam Vitals Vital Signs Date Temp Pulse Resp B/P (MAP) Pulse Ox O2 O2 Flow FiO2 Time Delivery Rate 08/22/18 98.7 86 17 106/53 96 Room Air 15:34 (70) Intake and Output 08/21/18 08/21/18 08/22/18 1414:59 22:59 06:59 IntakeIntake Total 50 ml 440 ml 600 ml BalanceBalance 50 ml 440 ml 600 ml Exam left foot dressings clean dry and intact no strikethrough no proximal streaking Left thigh donor site with granulation tissue, no signs of erythema or purulence. Results Result Diagram: 08/21/18 0435 08/22/18 0645 Results 24hrs Laboratory Tests Test 08/22/18 06:45 08/22/18 08:44 Sodium Level 134 L Potassium Level 3.6 Chloride Level 99 Carbon Dioxide Level 27 Anion Gap 8 Blood Urea Nitrogen 7 Creatinine 0.48 Est Glomerular Filtrat Rate mL/min > 60 Glucose Level 103 Calcium Level 7.6 L Total Bilirubin 7.0 H Direct Bilirubin 1.20 H Indirect Bilirubin 5.8 H Aspartate Amino Transf (AST/SGOT) 33 Alanine Aminotransferase (ALT/SGPT) 40 Alkaline Phosphatase 91 Total Protein 5.0 L Albumin 2.2 L Globulin 2.80 Albumin/Globulin Ratio 0.78 Prothrombin Time 28.2 H Prothrombin Time Ratio 2.2 INR International Normalized Ratio 2.64 Medications Medication Current Medications IV Flush (NS 3 ml) 3 ml PER PROTOCOL IV Last administered on 07/26/18 20:08; Admin Dose 3 ML; Start 07/04/18 at 18:30 Docusate Sodium (Colace) 100 mg Q12H PRN PO .CONSTIPATION Last administered on 08/16/18 14:09; Admin Dose 100 MG; Start 07/04/18 at 18:30 Albuterol (Proventil 0.083% (Neb)) 2.5 mg Q4H RESP THERAPY PRN HHN SHORTNESS OF BREATH; Start 07/04/18 at 18:30 Metoclopramide HCl (Reglan) 5 mg Q6H PRN IV NAUSEA Last administered on 08/22/18 11:35; Admin Dose 5 MG; Start 07/05/18 at 10:00 Midodrine (Proamatine) 10 mg TID PO Last administered on 08/22/18 13:06; Admin Dose 10 MG; Start 07/06/18 at 09:00 Albuterol (Ventolin Hfa) 2 puff Q4 INH Last administered on 08/22/18 13:07; Admin Dose 2 PUFF; Start 07/06/18 at 04:30 Rifaximin (Xifaxan) 200 mg TID PO Last administered on 08/22/18 13:07; Admin Dose 200 MG; Start 07/09/18 at 21:00 Sodium Hypochlorite (Dakin'S (Dilute 1/40)) 1 applic DAILY IRR Last administe red on 08/21/18 08:15; Admin Dose 1 APPLIC; Start 07/15/18 at 23:45 Simethicone (Mylicon) 80 mg Q6H PRN PO DISTENSION/GAS/BLOATING Last administered on 08/22/18 08:15; Admin Dose 80 MG; Start 07/16/18 at 15:30 Lactulose (Enulose) 10 gm DAILY PO Last administered on 08/22/18 08:13; Admin Dose 10 GM; Start 07/19/18 at 09:00 Diphenhydramine HCl (Benadryl) 25 mg Q8H PRN IV PRURITUS/ITCHING Last ad ministered on 08/04/18 07:15; Admin Dose 25 MG; Start 07/20/18 at 18:30 Morphine Sulfate (morphine) 6 mg Q4H PRN PO SEVERE PAIN LEVEL 7-10 Last administered on 08/05/18 05:23; Admin Dose 6 MG; Start 07/20/18 at 23:30 Nystatin (Nystatin Powder) 1 applic BID TOP Last administered on 08/22/18 08:18; Admin Dose 1 APPLIC; Start 07/25/18 at 21:00 Nystatin (Nystatin Oint) 1 applic TID TOP Last administered on 08/22/18 13:07; Admin Dose 1 APPLIC; Start 07/27/18 at 21:00 Hydromorphone HCl (Dilaudid) 1 mg Q3H PRN IV SEVERE PAIN LEVEL 7-10 Last administered on 08/22/18 15:54; Admin Dose 1 MG; Start 07/30/18 at 13:00 Ondansetron HCl (Zofran Odt) 8 mg Q6H PRN ODT NAUSEA AND/OR VOMITING Last admi nistered on 08/22/18 15:54; Admin Dose 8 MG; Start 08/09/18 at 16:00 Spironolactone (Aldactone) 100 mg BID DIURETICS PO Last administered on 08/22/18 06:39; Admin Dose 100 MG; Start 08/11/18 at 06:00 Trazodone HCl (Desyrel) 100 mg HS PRN PO insomnia Last administered on 08/21/18 19:38; Admin Dose 100 MG; Start 08/14/18 at 12:00 Levofloxacin (Levaquin) 500 mg DAILY@06 PO Last administered on 08/22/18 06:36; Admin Dose 500 MG; Start 08/16/18 at 06:00; Stop 08/23/18 at 06:00 Furosemide (Lasix) 20 mg DAILY GTB Last administered on 08/22/18 08:15; Admin Dose 20 MG; Start 08/16/18 at 09:00 Lubiprostone (Amitiza) 24 mcg BID PO Last administered on 08/22/18 08:15; Admin Dose 24 MCG; Start 08/17/18 at 21:00 Polyethylene Glycol (Miralax) 17 gm DAILY PO Last administered on 08/19/18 08:59; Admin Dose 17 GM; Start 08/18/18 at 09:00 Methylnaltrexone [place] (Relistor) 12 mg Q48H SC ; Start 08/19/18 at 19:30 Phenol (Cepastat Lozenge) 1 lozenge Q1H PRN MT sore throat; Start 08/22/18 at 1 2:00 JEANINE SAWYER DPM Aug 22, 2018 17:02
[2018-08-22] MEDS: CEPASTAT LOZENGE MT PRN ×2 (19:02→21:28)
[2018-08-22 20:00] VITALS: BP 105/51; PULSE 87; RESP 18
[2018-08-22] MEDS: traZODone 100 MG TAB PO PRN (21:28)
[2018-08-23] MEDS: ALBUTEROL HFA 8 GM INHALER INH SCH ×6 (01:35→22:06)
[2018-08-23] MEDS: METOCLOPRAMIDE 10 MG INJ IV PRN ×3 (01:36→18:39)
[2018-08-23] MEDS: HYDROmorphONE 1 MG/ML SYG IV PRN ×2 (01:37→05:22)
[2018-08-23] MEDS: CEPASTAT LOZENGE MT PRN ×5 (01:37→22:08)
[2018-08-23 02:00] VITALS: BP 91/50; PULSE 100; RESP 17
[2018-08-23] MEDS: ONDANSETRON (ODT) 4 MG TAB ODT PRN ×3 (05:21→23:06)
[2018-08-23] MEDS: LEVOFLOXACIN 500 MG TAB PO SCH (05:21)
[2018-08-23] MEDS: SPIRONOLACTONE 50 MG TAB PO SCH ×2 (05:22→17:29)
--- NOTE | 2018-08-23 08:11 | CONS ---
Assessment/Plan Assessment/Plan Hospital Course (Demo Recall) 48 yo female with h/o ESLD waiting for liver transplant presents with left foot cellulitis Interval hx: TB 7.3. Unable to do paracentesis due to not enough fluid. No acute events 1. Alcoholic Cirrhosis of liver. -on transplant list at [facility] -AFP wnl 2. Anemia of chronic disease. 3. Pancytopenia secondary to #1 4. 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 5. Cellulitis, status post skin graft and wound VAC. -K. pneumoniae and coagulase neg staph in wound -followed by podiatry 6. Clostridium difficile colitis. -resolved 7. SBP -resolved, treatment complete 8. S/P colonoscopy 08/04 found diverticulosis and external hemorrhoids 9. S/P EGD 08/04 shows congestive gastropathy, esophageal varices 10. Anasarca -on aldactone 50 mg BID PO US of abd 08/01: 1. Coarse nodular liver consistent with cirrhosis. No focal hepatic masses. 2. Status post cholecystectomy. No biliary duct dilatation. 3. Patent portal vein with pulsatile hepatopetal flow. 4. Suspect portal hypertension as demonstrated by moderate ascites. 5. Moderate size right pleural effusion as well. 6. Increased right renal cortical echogenicity suggest medical renal disease Plan: Follow up with Dr. Gómez as outpatient PRN reglan for nausea Continue bowel regimen Continue Aldactone 100 mg p.o. twice daily and lasix 20 mg QD Salt restriction with fluid restriction Paracentesis as needed Monitor for GI bleeding High fiber diet DC planning for SNF today or tomorrow Pt examined and plan of care discussed with Dr. Gómez Consultation Date/Type/Reason Admit Date/Time Jul 04, 2018 at 14:22 Initial Consult Date 07/07/18 Requesting Provider: ANA SPICER Date/Time of Note DATE: 08/23/18 TIME: 08:09 Exam/Review of Systems Exam Vitals Vital Signs Date Temp Pulse Resp B/P (MAP) Pulse Ox O2 O2 Flow FiO2 Time Delivery Rate 08/23/18 98.5 100 17 91/50 (64) 94 02:00 08/22/18 Room Air 15:34 Intake and Output 08/22/18 08/22/18 08/23/18 1515:00 23:00 07:00 IntakeIntake Total 320 ml BalanceBalance 320 ml Constitutional: alert, oriented Psych: no complaints Eyes: PERRL, icteric Respiratory: clear to auscultation Cardiovascular: regular rate and rhythm Gastrointestinal: ascites, tender Musculoskeletal: other (L thigh dressing, LLE dressing, BLE warm, mild edema) 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: nl mental status Results Result Diagram: 08/23/18 0517 08/23/18 0517 Results 24hrs Laboratory Tests Test 08/22/18 08:44 08/23/18 05:17 Prothrombin Time 28.2 H Prothrombin Time Ratio 2.2 INR International Normalized Ratio 2.64 White Blood Count 6.0 Red Blood Count 2.66 L Hemoglobin 8.9 L Hematocrit 27.2 L Mean Corpuscular Volume 102.3 H Mean Corpuscular Hemoglobin 33.5 H Mean Corpuscular Hemoglobin Concent 32.7 Red Cell Distribution Width 16.5 H Platelet Count 57 L Mean Platelet Volume 10.6 H Immature Granulocytes % 1.200 H Neutrophils % 51.0 Lymphocytes % 25.7 Monocytes % 18.9 H Eosinophils % 2.7 Basophils % 0.5 Nucleated Red Blood Cells % 0.0 Immature Granulocytes # 0.070 H Neutrophils # 3.1 Lymphocytes # 1.6 Monocytes # 1.1 H Eosinophils # 0.2 Basophils # 0.0 Nucleated Red Blood Cells # 0.0 Sodium Level 134 L Potassium Level 3.4 L Chloride Level 96 L Carbon Dioxide Level 27 Anion Gap 11 Blood Urea Nitrogen 6 L Creatinine 0.51 Est Glomerular Filtrat Rate mL/min > 60 Glucose Level 95 Calcium Level 7.9 L Magnesium Level 1.9 Total Bilirubin 7.3 H Direct Bilirubin 1.40 H Indirect Bilirubin 5.9 H Aspartate Amino Transf (AST/SGOT) 37 Alanine Aminotransferase (ALT/SGPT) 36 Alkaline Phosphatase 101 Total Protein 5.5 L Albumin 2.4 L Globulin 3.10 Albumin/Globulin Ratio 0.77 Medications Medication Current Medications IV Flush (NS 3 ml) 3 ml PER PROTOCOL IV Last administered on 07/26/18at 20:08; Admin Dose 3 ML; Start 07/04/18 at 18:30 Docusate Sodium (Colace) 100 mg Q12H PRN PO .CONSTIPATION Last administered on 08/16/18at 14:09; Admin Dose 100 MG; Start 07/04/18 at 18:30 Albuterol (Proventil 0.083% (Neb)) 2.5 mg Q4H RESP THERAPY PRN HHN SHORTNESS OF BREATH; Start 07/04/18 at 18:30 Metoclopramide HCl (Reglan) 5 mg Q6H PRN IV NAUSEA Last administered on 08/23/18 01:36; Admin Dose 5 MG; Start 07/05/18 at 10:00 Midodrine (Proamatine) 10 mg TID PO Last administered on 08/22/18 21:30; Admin Dose 10 MG; Start 07/06/18 at 09:00 Albuterol (Ventolin Hfa) 2 puff Q4 INH Last administered on 08/23/18 05:23; Admin Dose 2 PUFF; Start 07/06/18 at 04:30 Rifaximin (Xifaxan) 200 mg TID PO Last administered on 08/22/18 21:29; Admin Dose 200 MG; Start 07/09/18 at 21:00 Sodium Hypochlorite (Dakin'S (Dilute )) 1 applic DAILY IRR Last administered on 08/21/18 08:15; Admin Dose 1 APPLIC; Start 07/15/18 at 23:45 Simethicone (Mylicon) 80 mg Q6H PRN PO DISTENSION/GAS/BLOATING Last administered on 08/22/18 21:28; Admin Dose 80 MG; Start 07/16/18 at 15:30 Lactulose (Enulose) 10 gm DAILY PO Last administered on 08/22/18 08:13; Admin Dose 10 GM; Start 07/19/18 at 09:00 Diphenhydramine HCl (Benadryl) 25 mg Q8H PRN IV PRURITUS/ITCHING Last administered on 08/04/18 07:15; Admin Dose 25 MG; Start 07/20/18 at 18:30 Morphine Sulfate (morphine) 6 mg Q4H PRN PO SEVERE PAIN LEVEL 7-10 Last administered on 08/05/18 05:23; Admin Dose 6 MG; Start 07/20/18 at 23:30 Nystatin (Nystatin Powder) 1 applic BID TOP Last administered on 08/22/18 21:36; Admin Dose 1 APPLIC; Start 07/25/18 at 21:00 Nystatin (Nystatin Oint) 1 applic TID TOP Last administered on 08/22/18 21:36; Admin Dose 1 APPLIC; Start 07/27/18 at 21:00 Hydromorphone HCl (Dilaudid) 1 mg Q3H PRN IV SEVERE PAIN LEVEL 7-10 Last administered on 08/23/18 05:22; Admin Dose 1 MG; Start 07/30/18 at 13:00 Ondansetron HCl (Zofran Odt) 8 mg Q6H PRN ODT NAUSEA AND/OR VOMITING Last administered on 08/23/18 05:21; Admin Dose 8 MG; Start 08/09/18 at 16:00 Spironolactone (Aldactone) 100 mg BID DIURETICS PO Last administered on 08/23/18 05:22; Admin Dose 100 MG; Start 08/11/18 at 06:00 Trazodone HCl (Desyrel) 100 mg HS PRN PO insomnia Last administered on 08/22/18 21:28; Admin Dose 100 MG; Start 08/14/18 at 12:00 Furosemide (Lasix) 20 mg DAILY GTB Last administered on 08/22/18 08:15; Admin Dose 20 MG; Start 08/16/18 at 09:00 Lubiprostone (Amitiza) 24 mcg BID PO Last administered on 08/22/18 21:30; Admin Dose 24 MCG; Start 08/17/18 at 21:00 Polyethylene Glycol (Miralax) 17 gm DAILY PO Last administered on 08/19/18 08:59; Admin Dose 17 GM; Start 08/18/18 at 09:00 Methylnaltrexone [place] (Relistor) 12 mg Q48H SC ; Start 08/19/18 at 19:30 Phenol (Cepastat Lozenge) 1 lozenge Q1H PRN MT sore throat Last administered on 08/23/18 05:21; Admin Dose 1 LOZENGE; Start 08/22/18 at 12:00 SARA EISENBERG Aug 23, 2018 08:11
[2018-08-23] MEDS: RIFAXIMIN 200 MG TAB PO SCH ×3 (08:23→22:06)
[2018-08-23] MEDS: POLYETHYLENE GLYCOL 17 GM PACKET PO SCH (08:25)
[2018-08-23] MEDS: LUBIPROSTONE 24 MCG CAP PO SCH ×2 (08:25→22:06)
[2018-08-23] MEDS: LACTULOSE 30ML CUP PO SCH (08:25)
[2018-08-23] MEDS: FUROSEMIDE 20 MG TAB GTB SCH (08:25)
[2018-08-23] MEDS: SODIUM HYPOCHLORITE (1/40) 1 APPLIC BTL IRR SCH (08:25)
[2018-08-23] MEDS: MIDODRINE 5 MG TAB PO SCH ×3 (08:26→22:08)
[2018-08-23] MEDS: NYSTATIN 15 GM OINT TOP SCH ×3 (08:26→22:12)
[2018-08-23] MEDS: NYSTATIN 30 GM POWDER BTL TOP SCH ×2 (08:26→22:12)
[2018-08-23 08:28] VITALS: BP 99/50; PULSE 98; RESP 16
[2018-08-23] MEDS ORDERED: POTASSIUM CHLORIDE (SR) 20 MEQ TAB PO STA (09:13)
--- NOTE | 2018-08-23 09:14 | PN ---
Date/Time of Note Date/Time of Note DATE: 08/23/18 TIME: 09:14 Assessment/Plan VTE Prophylaxis Risk score (from Ns)>0 risk: 4 SCD applied (from [facility] [place]): No SCD contraindicated: other Pharmacological prophylaxis: NA/contraindicated Pharm contraindication: thrombocytopenia Lines/Catheters IV Catheter Type (from [facility]): Mid Line Urinary Cath still in place: No Assessment/Plan Assessment/Plan 1. Left foot wound s/p debridement with wound VAC and skin graft - Podiatry on board and cleared for discharge. Will need to follow up in [facility] clinic in 1 week - s/p skin allograft and wound vac placement 07/27/18 - MRI foot shows no evidence of OM - Completed course of antibiotics 2. SBP with klebsiella bacteremia: 3. Cirrhosis with ascites - Status post paracentesis x 7 - Continue on Aldactone 100mg BID and Lasix as BP will tolerate - Follows with Dr. Gómez as outpatient, liver transplant preop EGD and colonoscopy shows nonbleeding varices and diverticulosis 4. Anemia - most likely 2/2 liver dz 5. Acute kidney injury likely secondary to hemodynamics and intravascular volume depletion-resolved - Nephrology consultation appreciated 6. Anemia of chronic disease - stable 7. C Diff diarrhea - s/p PO vanco course - resolved 8. Left breast implant rupture - MRI ordered but patient unable to tolerate position needing to be placed in - patient has had saline implant in for the past 20 years. Has had issues with it in the past given behind the muscle 9. Disposition - Will transition to PO pain control and d/c to SNF tomorrow Result Diagram: 08/23/18 0517 08/23/18 0517 Results 24hrs Laboratory Tests Test 08/23/18 05:17 White Blood Count 6.0 Red Blood Count 2.66 L Hemoglobin 8.9 L Hematocrit 27.2 L Mean Corpuscular Volume 102.3 H Mean Corpuscular Hemoglobin 33.5 H Mean Corpuscular Hemoglobin Concent 32.7 Red Cell Distribution Width 16.5 H Platelet Count 57 L Mean Platelet Volume 10.6 H Immature Granulocytes % 1.200 H Neutrophils % 51.0 Lymphocytes % 25.7 Monocytes % 18.9 H Eosinophils % 2.7 Basophils % 0.5 Nucleated Red Blood Cells % 0.0 Immature Granulocytes # 0.070 H Neutrophils # 3.1 Lymphocytes # 1.6 Monocytes # 1.1 H Eosinophils # 0.2 Basophils # 0.0 Nucleated Red Blood Cells # 0.0 Sodium Level 134 L Potassium Level 3.4 L Chloride Level 96 L Carbon Dioxide Level 27 Anion Gap 11 Blood Urea Nitrogen 6 L Creatinine 0.51 Est Glomerular Filtrat Rate mL/min > 60 Glucose Level 95 Calcium Level 7.9 L Magnesium Level 1.9 Total Bilirubin 7.3 H Direct Bilirubin 1.40 H Indirect Bilirubin 5.9 H Aspartate Amino Transf (AST/SGOT) 37 Alanine Aminotransferase (ALT/SGPT) 36 Alkaline Phosphatase 101 Total Protein 5.5 L Albumin 2.4 L Globulin 3.10 Albumin/Globulin Ratio 0.77 Subjective 24 Hr Interval Summary Free Text/Dictation Patient states swelling of right lower extremity is causing some pain this am. had a BM which helped improve abdominal discomfort. No acute overnight events. Exam/Review of Systems Exam Vitals Vital Signs Date Temp Pulse Resp B/P (MAP) Pulse Ox O2 O2 Flow FiO2 Time Delivery Rate 08/23/18 98.5 98 16 99/50 (66) 92 08:28 08/22/18 Room Air 15:34 Intake and Output 08/22/18 08/22/18 08/23/18 1414:59 22:59 06:59 IntakeIntake Total 320 ml BalanceBalance 320 ml Exam General: Patient is laying in bed and answers questions appropriately Neck: Supple, nontender, midline Respiratory: Clear to auscultation bilaterally. no wheezing or rhonchi Cardiovascular: regular rate and rhythm, no obvious murmurs Gastrointestinal: soft, mildly LLQ, distended, bowel sounds heard. 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: Moves all extremities spontaneously Ext: LLE dressing in place as well L thigh area. swelling of legs bilaterally with discomfort RLE with palpation Skin: No new skin lesions Results Results 24hrs Laboratory Tests Test 08/23/18 05:17 White Blood Count 6.0 Red Blood Count 2.66 L Hemoglobin 8.9 L Hematocrit 27.2 L Mean Corpuscular Volume 102.3 H Mean Corpuscular Hemoglobin 33.5 H Mean Corpuscular Hemoglobin Concent 32.7 Red Cell Distribution Width 16.5 H Platelet Count 57 L Mean Platelet Volume 10.6 H Immature Granulocytes % 1.200 H Neutrophils % 51.0 Lymphocytes % 25.7 Monocytes % 18.9 H Eosinophils % 2.7 Basophils % 0.5 Nucleated Red Blood Cells % 0.0 Immature Granulocytes # 0.070 H Neutrophils # 3.1 Lymphocytes # 1.6 Monocytes # 1.1 H Eosinophils # 0.2 Basophils # 0.0 Nucleated Red Blood Cells # 0.0 Sodium Level 134 L Potassium Level 3.4 L Chloride Level 96 L Carbon Dioxide Level 27 Anion Gap 11 Blood Urea Nitrogen 6 L Creatinine 0.51 Est Glomerular Filtrat Rate mL/min > 60 Glucose Level 95 Calcium Level 7.9 L Magnesium Level 1.9 Total Bilirubin 7.3 H Direct Bilirubin 1.40 H Indirect Bilirubin 5.9 H Aspartate Amino Transf (AST/SGOT) 37 Alanine Aminotransferase (ALT/SGPT) 36 Alkaline Phosphatase 101 Total Protein 5.5 L Albumin 2.4 L Globulin 3.10 Albumin/Globulin Ratio 0.77 Medications Medication Current Medications IV Flush (NS 3 ml) 3 ml PER PROTOCOL IV Last administered on 07/26/18 20:08; Admin Dose 3 ML; Start 07/04/18 at 18:30 Docusate Sodium (Colace) 100 mg Q12H PRN PO .CONSTIPATION Last administered on 08/16/18at 14:09; Admin Dose 100 MG; Start 07/04/18 at 18:30 Albuterol (Proventil 0.083% (Neb)) 2.5 mg Q4H RESP THERAPY PRN HHN SHORTNESS OF BREATH; Start 07/04/18 at 18:30 Metoclopramide HCl (Reglan) 5 mg Q6H PRN IV NAUSEA Last administered on 08/23/18 at 01:36; Admin Dose 5 MG; Start 07/05/18 at 10:00 Midodrine (Proamatine) 10 mg TID PO Last administered on 08/23/18 08:26; Admin Dose 10 MG; Start 07/06/18 at 09:00 Albuterol (Ventolin Hfa) 2 puff Q4 INH Last administered on 08/23/18 08:23; Admin Dose 2 PUFF; Start 07/06/18 at 04:30 Rifaximin (Xifaxan) 200 mg TID PO Last administered on 08/23/18 08:23; Admin Dose 200 MG; Start 07/09/18 at 21:00 Sodium Hypochlorite (Dakin'S (Dilute )) 1 applic DAILY IRR Last administered on 08/21/18 08:15; Admin Dose 1 APPLIC; Start 07/15/18 at 23:45 Simethicone (Mylicon) 80 mg Q6H PRN PO DISTENSION/GAS/BLOATING Last administered on 08/22/18 21:28; Admin Dose 80 MG; Start 07/16/18 at 15:30 Lactulose (Enulose) 10 gm DAILY PO Last administered on 08/23/18 08:25; Admin Dose 10 GM; Start 07/19/18 at 09:00 Diphenhydramine HCl (Benadryl) 25 mg Q8H PRN IV PRURITUS/ITCHING Last administered on 08/04/18 07:15; Admin Dose 25 MG; Start 07/20/18 at 18:30 Morphine Sulfate (morphine) 6 mg Q4H PRN PO SEVERE PAIN LEVEL 7-10 Last administered on 08/05/18 05:23; Admin Dose 6 MG; Start 07/20/18 at 23:30 Nystatin (Nystatin Powder) 1 applic BID TOP Last administered on 08/23/18 08:26; Admin Dose 1 APPLIC; Start 07/25/18 at 21:00 Nystatin (Nystatin Oint) 1 applic TID TOP Last administered on 08/23/18 08:26; Admin Dose 1 APPLIC; Start 07/27/18 at 21:00 Hydromorphone HCl (Dilaudid) 1 mg Q3H PRN IV SEVERE PAIN LEVEL 7-10 Last administered on 08/23/18 05:22; Admin Dose 1 MG; Start 07/30/18 at 13:00 Ondansetron HCl (Zofran Odt) 8 mg Q6H PRN ODT NAUSEA AND/OR VOMITING Last administered on 08/23/18 05:21; Admin Dose 8 MG; Start 08/09/18 at 16:00 Spironolactone (Aldactone) 100 mg BID DIURETICS PO Last administered on 08/23/18 05:22; Admin Dose 100 MG; Start 08/11/18 at 06:00 Trazodone HCl (Desyrel) 100 mg HS PRN PO insomnia Last administered on 08/22/18 21:28; Admin Dose 100 MG; Start 08/14/18 at 12:00 Furosemide (Lasix) 20 mg DAILY GTB Last administered on 08/23/18 08:25; Admin Dose 20 MG; Start 08/16/18 at 09:00 Lubiprostone (Amitiza) 24 mcg BID PO Last administered on 08/23/18 08:25; Admin Dose 24 MCG; Start 08/17/18 at 21:00 Polyethylene Glycol (Miralax) 17 gm DAILY PO Last administered on 08/19/18at 08:59; Admin Dose 17 GM; Start 08/18/18 at 09:00 Methylnaltrexone [place] (Relistor) 12 mg Q48H SC ; Start 08/19/18 at 19:30 Phenol (Cepastat Lozenge) 1 lozenge Q1H PRN MT sore throat Last administered on 08/23/18 08:24; Admin Dose 1 LOZENGE; Start 08/22/18 at 12:00 LOUIE RUIZ MD Aug 23, 2018 09:14
[2018-08-23] MEDS ORDERED: HYDROmorphONE 1 MG/ML SYG IV PRN (11:00)
[2018-08-23] MEDS: HYDROmorphONE 4 MG TAB PO PRN ×4 (12:12→23:06)
[2018-08-23 14:30] VITALS: BP 101/54; PULSE 94; RESP 16
[2018-08-23] MEDS ORDERED: MIDO10TA PO (16:47)
[2018-08-23] MEDS ORDERED: LUBI24CA7 PO (16:47)
[2018-08-23] MEDS ORDERED: LAS20 PO (16:47)
[2018-08-23] MEDS ORDERED: RIFA200T5 PO (16:47)
[2018-08-23] MEDS ORDERED: TRA100 PO (16:47)
[2018-08-23] MEDS ORDERED: LACT20SO2 PO (16:47)
--- NOTE | 2018-08-23 16:51 | PDOCDIS ---
Discharge Instructions DIAGNOSIS Discharge Diagnosis 1. Left foot wound s/p debridement with wound VAC and skin graft 2. SBP with klebsiella bacteremia: 3. Cirrhosis with ascites 4. Anemia 5. Acute kidney injury likely secondary to hemodynamics and intravascular volume depletion-resolved 6. Anemia of chronic disease 7. C Diff diarrhea 8. Left breast implant rupture 9. Thrombocytopenia CONDITION [id number] Patient Condition: [id number] Stable HOME CARE INSTRUCTIONS: [id number] Diet Instructions: [id number] Reduced Sodium FOLLOW UP/APPOINTMENTS Follow-up Plan 1. Follow up with your primary care physician in 1 week 2. Follow up with [facility] clinic in 1 week () 3. Continue therapeutic paracentesis as previously scheduled 4. Follow up with Dr. Gómez in 2-4 weeks 5. Continue pain control as needed 6. Work with physical therapy daily as tolerated 7. If any concerning symptoms, please go to your closest emergency department LOUIE RUIZ MD Aug 23, 2018 16:51
[2018-08-23] MEDS: METHYLNALTREXONE 12 MG/0.6 ML VIAL SC SCH (19:30)
[2018-08-23 20:00] VITALS: BP 103/53; PULSE 89; RESP 18
[2018-08-23] MEDS: traZODone 100 MG TAB PO PRN (22:08)
[2018-08-24 02:00] VITALS: BP 92/50; PULSE 100; RESP 18
[2018-08-24] MEDS: METOCLOPRAMIDE 10 MG INJ IV PRN ×2 (02:12→09:17)
[2018-08-24] MEDS: CEPASTAT LOZENGE MT PRN ×2 (02:12→09:18)
[2018-08-24] MEDS: HYDROmorphONE 4 MG TAB PO PRN ×4 (02:12→12:09)
[2018-08-24] MEDS: ALBUTEROL HFA 8 GM INHALER INH SCH ×3 (02:22→08:37)
[2018-08-24] MEDS: SPIRONOLACTONE 50 MG TAB PO SCH (06:22)
[2018-08-24] MEDS: ONDANSETRON (ODT) 4 MG TAB ODT PRN ×2 (06:22→12:08)
[2018-08-24 08:07] VITALS: BP 99/51; PULSE 96; RESP 16
[2018-08-24] MEDS: MIDODRINE 5 MG TAB PO SCH (08:34)
[2018-08-24] MEDS: RIFAXIMIN 200 MG TAB PO SCH (08:34)
[2018-08-24] MEDS: LUBIPROSTONE 24 MCG CAP PO SCH (08:34)
[2018-08-24] MEDS: POLYETHYLENE GLYCOL 17 GM PACKET PO SCH (08:35)
[2018-08-24] MEDS: SODIUM HYPOCHLORITE (1/40) 1 APPLIC BTL IRR SCH (08:36)
[2018-08-24] MEDS: LACTULOSE 30ML CUP PO SCH (08:36)
[2018-08-24] MEDS: NYSTATIN 15 GM OINT TOP SCH (08:37)
[2018-08-24] MEDS: NYSTATIN 30 GM POWDER BTL TOP SCH (08:37)
[2018-08-24] MEDS ORDERED: FUROSEMIDE 20 MG TAB PO SCH (09:00)
[2018-08-24] MEDS ORDERED: ALBUMIN HUMAN 25% 50 ML IV ONE (10:00)
--- NOTE | 2018-08-24 11:08 | PN ---
Date/Time of Note Date/Time of Note DATE: 08/24/18 TIME: 11:06 Assessment/Plan VTE Prophylaxis Risk score (from Ns)>0 risk: 4 SCD applied (from Ns): No SCD contraindicated: other Pharmacological prophylaxis: NA/contraindicated Pharm contraindication: thrombocytopenia Lines/Catheters [facility] Mid Line Urinary Cath still in place: No Assessment/Plan Assessment/Plan 1. Left foot wound s/p debridement with wound VAC and skin graft - Podiatry on board and cleared for discharge. Will need to follow up in [facility] clinic in 1 week () - s/p skin allograft and wound vac placement 07/27/18 - MRI foot shows no evidence of OM - Completed course of antibiotics 2. SBP with klebsiella bacteremia- resolved 3. Cirrhosis with ascites - Status post paracentesis x 7 - Continue on Aldactone 100mg BID and Lasix as BP will tolerate - Follows with Dr. Gómez as outpatient, liver transplant preop EGD and co lonoscopy shows nonbleeding varices and diverticulosis 4. Anemia of chronic disease - most likely 2/2 liver dz 5. Acute kidney injury likely secondary to hemodynamics and intravascular volume depletion-resolved - Nephrology consultation appreciated 6. Anemia of chronic disease - stable 7. C Diff diarrhea - s/p PO vanco course - resolved 8. Left breast implant rupture - MRI ordered but patient unable to tolerate position needing to be placed in - patient has had saline implant in for the past 20 years. Has had issues with it in the past given behind the muscle 9. Disposition - Medically stable for discharge to SNF Result Diagram: 08/23/18 0517 08/23/18 0517 Subjective 24 Hr Interval Summary Free Text/Dictation Patient denies any acute issues. Has had 4 BMs since yesterday. Still with some abdominal discomfort but tolerable. No acute overnight events. Exam/Review of Systems Exam Vitals Vital Signs Date Temp Pulse Resp B/P (MAP) Pulse Ox O2 O2 Flow FiO2 Time Delivery Rate 08/24/18 98.6 96 16 99/51 (67) 97 08:07 08/22/18 Room Air 15:34 Intake and Output 08/23/18 08/23/18 08/24/18 1414:59 22:59 06:59 IntakeIntake Total 700 ml BalanceBalance 700 ml Exam General: Patient is laying in bed and answers questions appropriately Neck: Supple Respiratory: Clear to auscultation bilaterally. no wheezing or rhonchi Cardiovascular: regular rate and rhythm, no obvious murmurs Gastrointestinal: soft, mildly LLQ, distended, minimal fluid shifts, bowel sounds heard. 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: Moves all extremities spontaneously Ext: LLE dressing in place as well L thigh area. swelling of legs bilaterally with discomfort RLE with palpation Skin: No new skin lesions Medications Medication Current Medications IV Flush (NS 3 ml) 3 ml PER PROTOCOL IV Last administered on 07/26/18 20:08; Admin Dose 3 ML; Start 07/04/18 at 18:30 Docusate Sodium (Colace) 100 mg Q12H PRN PO .CONSTIPATION Last administered on 08/16/18 14:09; Admin Dose 100 MG; Start 07/04/18 at 18:30 Albuterol (Proventil 0.083% (Neb)) 2.5 mg Q4H RESP THERAPY PRN HHN SHORTNESS OF BREATH; Start 07/04/18 at 18:30 Metoclopramide HCl (Reglan) 5 mg Q6H PRN IV NAUSEA Last administered on 08/24/18 09:17; Admin Dose 5 MG; Start 07/05/18 at 10:00 Midodrine (Proamatine) 10 mg TID PO Last administered on 08/24/18 08:34; Admin Dose 10 MG; Start 07/06/18 at 09:00 Albuterol (Ventolin Hfa) 2 puff Q4 INH Last administered on 08/24/18 08:37; Admin Dose 2 PUFF; Start 07/06/18 at 04:30 Rifaximin (Xifaxan) 200 mg TID PO Last administered on 08/24/18 08:34; Admin Dose 200 MG; Start 07/09/18 at 21:00 Sodium Hypochlorite (Dakin'S (Dilute )) 1 applic DAILY IRR Last administered on 08/21/18 08:15; Admin Dose 1 APPLIC; Start 07/15/18 at 23:45 Simethicone (Mylicon) 80 mg Q6H PRN PO DISTENSION/GAS/BLOATING Last administered on 08/23/18 22:08; Admin Dose 80 MG; Start 07/16/18 at 15:30 Lactulose (Enulose) 10 gm DAILY PO Last administered on 08/23/18 08:25; Admin Dose 10 GM; Start 07/19/18 at 09:00 Diphenhydramine HCl (Benadryl) 25 mg Q8H PRN IV PRURITUS/ITCHING Last administered on 08/04/18 07:15; Admin Dose 25 MG; Start 07/20/18 at 18:30 Morphine Sulfate (morphine) 6 mg Q4H PRN PO SEVERE PAIN LEVEL 7-10 Last administered on 08/05/18 05:23; Admin Dose 6 MG; Start 07/20/18 at 23:30 Nystatin (Nystatin Powder) 1 applic BID TOP Last administered on 08/24/18 08:37; Admin Dose 1 APPLIC; Start 07/25/18 at 21:00 Nystatin (Nystatin Oint) 1 applic TID TOP Last administered on 08/24/18 08:37; Admin Dose 1 APPLIC; Start 07/27/18 at 21:00 Ondansetron HCl (Zofran Odt) 8 mg Q6H PRN ODT NAUSEA AND/OR VOMITING Last administered on 08/24/18 06:22; Admin Dose 8 MG; Start 08/09/18 at 16:00 Spironolactone (Aldactone) 100 mg BID DIURETICS PO Last administered on 08/24/18 06:22; Admin Dose 100 MG; Start 08/11/18 at 06:00 Trazodone HCl (Desyrel) 100 mg HS PRN PO insomnia Last administered on 08/23/18 22:08; Admin Dose 100 MG; Start 08/14/18 at 12:00 Lubiprostone (Amitiza) 24 mcg BID PO Last administered on 08/24/18 08:34; Admin Dose 24 MCG; Start 08/17/18 at 21:00 Polyethylene Glycol (Miralax) 17 gm DAILY PO Last administered on 08/19/18 08:59; Admin Dose 17 GM; Start 08/18/18 at 09:00 Methylnaltrexone [place] (Relistor) 12 mg Q48H SC ; Start 08/19/18 at 19:30 Phenol (Cepastat Lozenge) 1 lozenge Q1H PRN MT sore throat Last administered on 08/24/18 09:18; Admin Dose 1 LOZENGE; Start 08/22/18 at 12:00 Hydromorphone HCl (Dilaudid) 1 mg Q8H PRN IV SEVERE PAIN LEVEL 7-10; Start 08/23/18 at 11:00 Hydromorphone HCl (Dilaudid) 4 mg Q3H PRN PO SEVERE PAIN LEVEL 7-10 Last administered on 08/24/18at 09:18; Admin Dose 4 MG; Start 08/23/18 at 11:00 Furosemide (Lasix) 20 mg DAILY PO Last administered on 08/24/18at 09:18; Admin Dose 20 MG; Start 08/24/18 at 09:00 LOUIE RUIZ MD Aug 24, 2018 11:08
--- NOTE | 2018-08-24 13:46 | CONS ---
Assessment/Plan Assessment/Plan Assessment/Plan (Daily) Interval hx: BM 08/20, soft brown. C/O abd pain secondary to ascites. Mild nausea. 1. Alcoholic Cirrhosis of liver. -on transplant list at [facility] -AFP wnl 2. Anemia of chronic disease. 3. Pancytopenia secondary to #1 4. 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 5. Cellulitis, status post skin graft and wound VAC. -K. pneumoniae and coagulase neg staph in wound -followed by podiatry 6. Clostridium difficile colitis. -resolved 7. SBP -resolved, treatment complete 8. S/P colonoscopy 08/04 found diverticulosis and external hemorrhoids 9. S/P EGD 08/04 shows congestive gastropathy, esophageal varices 10. Anasarca -on aldactone 50 mg BID PO US of abd 08/01: 1. Coarse nodular liver consistent with cirrhosis. No focal hepatic masses. 2. Status post cholecystectomy. No biliary duct dilatation. 3. Patent portal vein with pulsatile hepatopetal flow. 4. Suspect portal hypertension as demonstrated by moderate ascites. 5. Moderate size right pleural effusion as well. 6. Increased right renal cortical echogenicity suggest medical renal disease PLAN: Paracentesis with cx/cell ct PRN reglan for nausea Continue bowel regimen Continue Aldactone 100 mg p.o. twice daily and lasix 20 mg QD Salt restriction with fluid restriction Paracentesis as needed Monitor for GI bleeding High fiber diet DC planning for SNF Patient is responded well to diuretics, her weight has come down. We can defer paracentesis. Patient's total bilirubin is going up which needs to be monitored as an outpati ent. Hoping that patient is not going into decompensated cirrhosis Consultation Date/Type/Reason Admit Date/Time Jul 04, 2018 at 14:22 Initial Consult Date 07/07/18 Requesting Provider: ANA SPICER Date/Time of Note DATE: 08/24/18 TIME: 13:45 24 HR Interval Summary Constitutional: improved Exam/Review of Systems Exam Vitals Vital Signs Date Temp Pulse Resp B/P (MAP) Pulse Ox O2 O2 Flow FiO2 Time Delivery Rate 08/24/18 98.6 96 16 99/51 (67) 97 08:07 08/22/18 Room Air 15:34 Intake and Output 08/23/18 08/23/18 08/24/18 1515:00 23:00 07:00 IntakeIntake Total 700 ml BalanceBalance 700 ml Constitutional: alert, oriented, well developed Psych: no complaints, nl mood/affect Head: normocephalic, atraumatic Eyes: nl conjunctiva, EOMI, nl lids, nl sclera, PERRL ENMT: nl external ears & nose, nl lips & teeth, nl nasal mucosa & septum Neck: supple, non-tender Respiratory: clear to auscultation, normal air movement Cardiovascular: regular rate and rhythm, nl pulses Gastrointestinal: soft, nl liver, spleen, non-tender Musculoskeletal: nl extremities to inspection, nl gait and stance Extremities: normal pulses 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: PRESSURE TEST OPERATOR II-XII intact, nl mental status, nl speech, nl strength Skin: nl turgor; No rash or lesions Lymph: nl lymph nodes Results Result Diagram: 08/23/1851608/23/18516 Medications Medication Current Medications IV Flush (NS 3 ml) 3 ml PER PROTOCOL IV Last administered on 07/26/18 20:08; Admin Dose 3 ML; Start 07/04/18 at 18:30 Docusate Sodium (Colace) 100 mg Q12H PRN PO .CONSTIPATION Last administered on 08/16/18 14:09; Admin Dose 100 MG; Start 07/04/18 at 18:30 Albuterol (Proventil 0.083% (Neb)) 2.5 mg Q4H RESP THERAPY PRN HHN SHORTNESS OF BREATH; Start 07/04/18 at 18:30 Metoclopramide HCl (Reglan) 5 mg Q6H PRN IV NAUSEA Last administered on 08/24/18 09:17; Admin Dose 5 MG; Start 07/05/18 at 10:00 Midodrine (Proamatine) 10 mg TID PO Last administered on 08/24/18 08:34; Admin Dose 10 MG; Start 07/06/18 at 09:00 Albuterol (Ventolin Hfa) 2 puff Q4 INH Last administered on 08/24/18 08:37; Admin Dose 2 PUFF; Start 07/06/18 at 04:30 Rifaximin (Xifaxan) 200 mg TID PO Last administered on 08/24/18 08:34; Admin Dose 200 MG; Start 07/09/18 at 21:00 Sodium Hypochlorite (Dakin'S (Dilute )) 1 applic DAILY IRR Last admin istered on 08/21/18 08:15; Admin Dose 1 APPLIC; Start 07/15/18 at 23:45 Simethicone (Mylicon) 80 mg Q6H PRN PO DISTENSION/GAS/BLOATING Last administered on 08/23/18 22:08; Admin Dose 80 MG; Start 07/16/18 at 15:30 Lactulose (Enulose) 10 gm DAILY PO Last administered on 08/23/18 08:25; Admin Dose 10 GM; Start 07/19/18 at 09:00 Diphenhydramine HCl (Benadryl) 25 mg Q8H PRN IV PRURITUS/ITCHING Last administered on 08/04/18 07:15; Admin Dose 25 MG; Start 07/20/18 at 18:30 Morphine Sulfate (morphine) 6 mg Q4H PRN PO SEVERE PAIN LEVEL 7-10 Last administered on 08/05/18 05:23; Admin Dose 6 MG; Start 07/20/18 at 23:30 Nystatin (Nystatin Powder) 1 applic BID TOP Last administered on 08/24/18 0 8:37; Admin Dose 1 APPLIC; Start 07/25/18 at 21:00 Nystatin (Nystatin Oint) 1 applic TID TOP Last administered on 08/24/18 08:37; Admin Dose 1 APPLIC; Start 07/27/18 at 21:00 Ondansetron HCl (Zofran Odt) 8 mg Q6H PRN ODT NAUSEA AND/OR VOMITING Last administered on 08/24/18 12:08; Admin Dose 8 MG; Start 08/09/18 at 16:00 Spironolactone (Aldactone) 100 mg BID DIURETICS PO Last administered on 06:22; Admin Dose 100 MG; Start 08/11/18 at 06:00 Trazodone HCl (Desyrel) 100 mg HS PRN PO insomnia Last administered on 08/23/18 22:08; Admin Dose 100 MG; Start 08/14/18 at 12:00 Lubiprostone (Amitiza) 24 mcg BID PO Last administered on 08/24/18 08:34; Admin Dose 24 MCG; Start 08/17/18 at 21:00 Polyethylene Glycol (Miralax) 17 gm DAILY PO Last administered on 08/19/18 08:59; Admin Dose 17 GM; Start 08/18/18 at 09:00 Methylnaltrexone [place] (Relistor) 12 mg Q48H SC ; Start 08/19/18 at 19:30 Phenol (Cepastat Lozenge) 1 lozenge Q1H PRN MT sore throat Last administered on 08/24/18 09:18; Admin Dose 1 LOZENGE; Start 08/22/18 at 12:00 Hydromorphone HCl (Dilaudid) 1 mg Q8H PRN IV SEVERE PAIN LEVEL 7-10; Start 08/23/18 at 11:00 Hydromorphone HCl (Dilaudid) 4 mg Q3H PRN PO SEVERE PAIN LEVEL 7-10 Last administered on 08/24/18 12:09; Admin Dose 4 MG; Start 08/23/18 at 11:00 Furosemide (Lasix) 20 mg DAILY PO Last administered on 08/24/18 09:18; Admin Dose 20 MG; Start 08/24/18 at 09:00 TRISTIAN NAIDU MD Aug 24, 2018 13:46
[2018-08-24] MEDS ORDERED: HYDR4TAB51 PO (13:51)
--- NOTE | 2018-08-24 17:15 | DS ---
Date/Time of Note Date/Time of Note DATE: 08/24/18 TIME: 17:15 Discharge Summary Admission/Discharge Info Admit Date/Time Jul 04, 2018 at 14:22 Discharge Date/Time Aug 24, 2018 at 12:50 Discharge Diagnosis 1. Left foot wound s/p debridement with wound VAC and skin graft 2. SBP with klebsiella bacteremia: 3. Cirrhosis with ascites 4. Anemia 5. Acute kidney injury likely secondary to hemodynamics and intravascular volume depletion-resolved 6. Anemia of chronic disease 7. C Diff diarrhea 8. Left breast implant rupture 9. Thrombocytopenia Patient Condition: Stable Consults GI- Dr. Gómez ID- Dr. Marti Podiatry- Dr. Morales Nephrology- Dr. Dennis Procedures DATE: 07/18/18 TIME: 21:21 Operation/Procedure Performed Left foot excisional debridement Left foot incision and drainage Application of wound VAC left foot Surgeon Jack Morales DPM DATE: 07/27/18 TIME: 20:0 Operation/Procedure Performed Left foot excisional debridement application of skin allograft to left foot application of wound VAC to left foot Surgeon Jack Morales DPM DATE: 07/18/18 TIME: 21:21 Operation/Procedure Performed Left foot excisional debridement Left foot incision and drainage Application of wound VAC left foot Surgeon Jack Morales DPM S/P colonoscopy 08/04 found diverticulosis and external hemorrhoids S/P EGD 08/04 shows congestive gastropathy, esophageal varices DATE: 08/16/18 TIME: 08:55 Operation/Procedure Performed left lower extremity skin prep Application of split thickness skin graft Surgeon Jack Morales DPM PROCEDURE: US Abdomen (limited). CLINICAL INDICATION: Abdominal pain and distension. TECHNIQUE: Multiple real-time longitudinal and transverse images of the four quadrants of the abdomen were acquired utilizing a curved array transducer. Images were reviewed on a high-resolution PACS workstation. COMPARISON: None FINDINGS: There is a small amount of free fluid in the abdomen. There is not enough fluid to safely aspirate. Paracentesis was not performed. IMPRESSION: 1. Small amount of free fluid in the abdomen. 2. Paracentesis was not performed. RPTAT: QQ .Gilson Buckner MD, MD Date Time Electronically viewed and signed by .Gilson Buckner MD, MD on 08/22/2018 17:34 PROCEDURE: Ultrasound guided paracentesis. CLINICAL INDICATION: Ascites and shortness of breath. COMPARISON: 08/10/2018. TECHNIQUE: The risks, benefits, and alternatives were explained to the patient and/or the patient's family, including but not limited to bleeding, infection, pain, visceral or vascular damage, shock, and . The patient and/or the patient's family understood the risks and the alternatives and wished to proceed with the procedure. Informed written consent was obtained. A procedural time out was performed. The patient's name, date of , and procedure to be performed were verified. Utilizing ultrasound guidance, optimal location for entry to the peritoneal cavity was ascertained. The overlying skin was prepped and draped in the usual sterile fashion. Approximately 10 ml of 1% Xylocaine was injected locally for pain control. Using ultrasound guidance, an 8 Welsh catheter was introduced into the peritoneal cavity in the right lower quadrant without difficulty. Specimens: None. Blood loss: 1 ml. Complications: None. Supervisor Type Bar And Segment: None. Anesthesia: Local. Graft/Implant: None. FINDINGS: Initial images demonstrate ascites. Approximately 3.6 liters of serous fluid was aspirated and discarded. The patient tolerated the procedure well without complication. IMPRESSION: 1. Successful ultrasound-guided paracentesis. RPTAT: QQ .Gilson Buckner MD, MD Date Time Electronically viewed and signed by .Gilson Buckner MD, MD on 08/15/2018 13:01 PROCEDURE: Ultrasound guided paracentesis. CLINICAL INDICATION: Ascites and shortness of breath. COMPARISON: Paracentesis dated 08/08/2018. TECHNIQUE: The risks, benefits, and alternatives were explained to the patient and/or the patient's family, including but not limited to bleeding, infection, pain, visceral or vascular damage, shock, and . The patient and/or the patient's family understood the risks and the alternatives and wished to proceed with the procedure. Informed written consent was obtained. A procedural time out was performed. The patient's name, date of , and procedure to be performed were verified. Utilizing ultrasound guidance, optimal location for entry to the peritoneal cavity was ascertained. The overlying skin was prepped and draped in the usual sterile fashion. Approximately 10 ml of 1% Xylocaine was injected locally for pain control. Using ultrasound guidance, an 8 Welsh catheter was introduced into the peritoneal cavity in the right lower quadrant without difficulty. Specimens: None. Blood loss: 1 ml. Complications: None. Supervisor Type Bar And Segment: None. Anesthesia: Local. Graft/Implant: None. FINDINGS: Initial images demonstrate ascites. Approximately 4.2 liters of serous fluid was aspirated and discarded. The patient tolerated the procedure well without complication. IMPRESSION: 1. Successful ultrasound-guided paracentesis. RPTAT: QQ .Gilson Buckner MD, Date Time Electronically viewed and signed by .Gilson Buckner MD, MD on 08/10/2018 12:11 PROCEDURE: Left breast ultrasound. CLINICAL INDICATION: Left breast tenderness TECHNIQUE: Left whole breast, 4 quadrant and retroareolar, and axillary sonography was performed. COMPARISON: None FINDINGS: No solid or suspicious masses. No areas of architectural distortion. No malignant adenopathy. Parenchymal edema is present without any discrete walled off fluid collection No dominant cysts are present. There is suggestion of a irregular appearing implant which may represent rupture. IMPRESSION: 1. Parenchymal edema is present without any discrete walled off fluid collection. Complete evaluation with the bilateral diagnostic mammogram is recommended. 2. Additionally, there is irregularity to the left implant which may represent implant rupture. If there is further clinical concern, MRI with silicone sen sitive sequences can be performed BI-RADS 0: INCOMPLETE, NEED ADDITIONAL IMAGING EVALUATION RPTAT: EE .Shanell Nichols MD, Date Time Electronically viewed and signed by .Shanell Nichols MD, MD on 08/12/2018 09:12 PROCEDURE: Ultrasound guided paracentesis. CLINICAL INDICATION: Ascites and shortness of breath. COMPARISON: 08/05/2018. TECHNIQUE: The risks, benefits, and alternatives were explained to the patient and/or the patient's family, including but not limited to bleeding, infection, pain, visceral or vascular damage, shock, and . The patient and/or the patient's family understood the risks and the alternatives and wished to proceed with the procedure. Informed written consent was obtained. A procedural time out was performed. The patient's name, date of , and procedure to be performed were verified. Utilizing ultrasound guidance, optimal location for entry to the peritoneal cavity was ascertained. The overlying skin was prepped and draped in the usual sterile fashion. Approximately 10 ml of 1% Xylocaine was injected locally for pain control. Using ultrasound guidance, an 8 Welsh catheter was introduced into the peritoneal cavity in the right lower quadrant without difficulty. Specimens: None. Blood loss: 1 ml. Complications: None. Supervisor Type Bar And Segment: None. Anesthesia: Local. Graft/Implant: None. FINDINGS: Initial images demonstrate ascites. Approximately 5 liters of serous fluid was aspirated and discarded. The patient tolerated the procedure well without complication. IMPRESSION: 1. Successful ultrasound-guided paracentesis. RPTAT: QQ .Gilson Buckner MD, Date Time Electronically viewed and signed by .Gilson Buckner MD, on 08/08/2018 11:37 PROCEDURE: Ultrasound guided paracentesis. CLINICAL INDICATION: Ascites and shortness of breath. COMPARISON: Ultrasound guided paracentesis dated July 29, 2018. TECHNIQUE: The risks, benefits, and alternatives were explained to the patient and/or the patient's family, including but not limited to bleeding, infection, pain, visceral or vascular damage, shock, and . The patient and/or the patient's family understood the risks and the alternatives and wished to proceed with the procedure. Informed written consent was obtained. A procedural time out was performed. The patient's name, date of , and procedure to be performed were verified. Utilizing ultrasound guidance, optimal location for entry to the peritoneal cavity was ascertained. The overlying skin was prepped and draped in the usual sterile fashion. Approximately 10 ml of 1% Xylocaine was injected locally for pain control. Using ultrasound guidance, an 8 Welsh catheter was introduced into the peritoneal cavity in the right lower quadrant without difficulty. Specimens: None. Blood loss: 1 ml. Complications: None. Supervisor Type Bar And Segment: None. Anesthesia: Local. Graft/Implant: None. FINDINGS: Initial images demonstrate ascites. Approximately 5 liters of serous fluid was aspirated and discarded. The patient tolerated the procedure well without complication. IMPRESSION: 1. Successful ultrasound-guided paracentesis. RPTAT: QQ .Gilson Buckner MD, Date Time Electronically viewed and signed by .Gilson Buckner MD, MD on 08/05/2018 20:16 PROCEDURE: Right upper quadrant ultrasound CLINICAL INDICATION: Cirrhosis. TECHNIQUE: Multiple real-time images were acquired of the patient's abdomen and right retroperitoneum utilizing a high resolution transducer. COMPARISON: 11/26/2017 FINDINGS: The liver is coarse and nodular consistent with cirrhosis. The liver measures 13.0 cm.. No focal hepatic masses are seen. The gallbladder surgically absent. The intra and extrahepatic bile ducts are normal in caliber. The common bile duct measures 4.8 mm. Doppler images demonstrate patent main portal vein with pulsatile hepatopetal flow. Midline images demonstrate the pancreas to be normal in echogenicity without obvious inflammatory change. Pancreatic tail is suboptimally seen. Survey views of the right kidney demonstrate no evidence of hydronephrosis or renal calculi. Right kidney is increased in echogenicity. The right kidney measures 10.7 cm. There is moderate ascites and moderate size right pleural effusion. IMPRESSION: 1. Coarse nodular liver consistent with cirrhosis. No focal hepatic masses. 2. Status post cholecystectomy. No biliary duct dilatation. 3. Patent portal vein with pulsatile hepatopetal flow. 4. Suspect portal hypertension as demonstrated by moderate ascites. 5. Moderate size right pleural effusion as well. 6. Increased right renal cortical echogenicity suggest medical renal disease RPTAT: HH .Nnamdi Peterson MD, Date Time Electronically viewed and signed by .Nnamdi Peterson MD, MD on 08/01/2018 17:47 PROCEDURE: Ultrasound guided paracentesis CLINICAL INDICATION: Ascites TECHNIQUE: The risks benefits and alternatives of the procedure were explained to the patient. Informed written consent was obtained. A time out was performed. The patient understood the risks benefits and alternatives and wished to proceed with the procedure. COMPARISON: None available FINDINGS: A time out was performed. The overlying skin of the left lower quadrant of the abdomen was prepped and draped in the usual sterile fashion. Approximately 10 cc of lidocaine was injected locally for pain control. Utilizing ultrasound guidance, a skinny 5-Welsh Yueh catheter was placed into the peritoneal cavity without difficulty. The patient tolerated the procedure well without complication. Approximately 5000 cc of clear yellow fluid was obtained. The fluid was not sent to the lab for further analysis. IMPRESSION: Successful ultrasound-guided paracentesis. RPTAT: PP Physician Elidia Date Time Electronically viewed and signed by Physician Elidia on 07/29/2018 11:51 PROCEDURE: Ultrasound guided paracentesis. CLINICAL INDICATION: Ascites and shortness of breath. COMPARISON: Ultrasound guided paracentesis dated 06/28/2018. TECHNIQUE: The risks, benefits, and alternatives were explained to the patient and/or the patient's family, including but not limited to bleeding, infection, pain, visceral or vascular damage, shock, and . The patient and/or the patient's family understood the risks and the alternatives and wished to proceed with the procedure. Informed written consent was obtained. A procedural time out was performed. The patient's name, date of , and procedure to be performed were verified. Utilizing ultrasound guidance, optimal location for entry to the peritoneal cavity was ascertained. The overlying skin was prepped and draped in the usual sterile fashion. Approximately 10 ml of 1% Xylocaine was injected locally for pain control. Using ultrasound guidance, an 8 Welsh catheter was introduced into the peritoneal cavity in the right lower quadrant without difficulty. Specimens: Ascites fluid. Blood loss: 1 ml. Complications: None. Supervisor Type Bar And Segment: None. Anesthesia: Local. Graft/Implant: None. FINDINGS: Initial images demonstrate ascites. Approximately 5 liters of serous fluid was aspirated and sent for laboratory analysis. The patient tolerated the procedure well without complication. IMPRESSION: 1. Successful ultrasound-guided paracentesis. RPTAT: QQ .Gilson Buckner MD, Date Time Electronically viewed and signed by .Gilson Buckner MD, on 07/15/2018 16:25 PROCEDURE: MR left mid foot. CLINICAL INDICATION: Left foot wound, severe sepsis, cellulitis TECHNIQUE: Multiplanar multi sequence MRI imaging of the left mid foot was ob tained without the use of IV contrast. Images were evaluated on a high resolution PACS system. COMPARISON: No prior studies are available for comparison. FINDINGS: Bones: No acute fracture. No infiltrative marrow signal or bone marrow edema. Marginal osteophyte formation and mild cartilage thinning of the first MTP joint. Soft tissues: Diffuse subcutaneous edema in the dorsum of the forefoot and midfoot, with skin irregularity of the lateral forefoot. Diffuse edema throughout the visualized intrinsic musculature of the foot. No acute tendon rupture identified. IMPRESSION: 1. No evidence of osteomyelitis. 2. Diffuse subcutaneous edema as detailed above most prominent in the dorsal forefoot and midfoot, with focal skin irregularity in the lateral forefoot. 3. Diffuse edema in the intrinsic musculature of the foot. RPTAT: [facility] Physician Sammy Date Time Electronically viewed and signed by Paty Solis Physician on 07/13/2018 22:47 PROCEDURE: XR Chest. CLINICAL INDICATION: Cough. TECHNIQUE: Single portable view of the chest was obtained COMPARISON: CHEST 07/04/2018 FINDINGS: Heart is borderline enlarged. Aorta is tortuous and atherosclerotic. Vascular prominence and indistinctness. No pleural effusion or pneumothorax. No acute osseous abnormality. IMPRESSION: Mild cardiomegaly with aortic atherosclerosis. Mild congestive change. RPTAT: [facility] Physician Dionne Date Time Electronically viewed and signed by Physician Dionne on 07/11/2018 16:22 PROCEDURE: US Retroperitoneum. CLINICAL INDICATION: Renal injury. TECHNIQUE: Multiple sonographic images of the retroperitoneum were obtained. Evaluation of the kidneys and bladder was performed as well as visualization of the aorta and other retroperitoneal structures using a curved array transducer. The images were reviewed on a PACS workstation. COMPARISON: CT from 11/26/2017 FINDINGS: The kidneys are well visualized. The right kidney measures 10.5 cm in length. The left kidney measures 10.9 cm in length. There are no focal areas of abnormal echogenicity. There is no mass, calculus, or obstructive uropathy. No perinephric fluid collection is seen. The aorta and IVC are of normal caliber. There is no evidence for aortic aneurysm. Small amount of ascites is seen in all 4 quadrants with the largest pocket in the left upper quadrant. The bladder is unremarkable. Ureteral jets were not seen. IMPRESSION: 1. Unremarkable sonographic appearance of the kidneys. 2. Moderate ascites.. RPTAT: JJ .Zachary Park MD, MD Date Time Electronically viewed and signed by .Zachary Park MD, on 07/07/2018 16:30 PROCEDURE: Ultrasound guided paracentesis. CLINICAL INDICATION: Ascites and shortness of breath. COMPARISON: June 28, 2018. TECHNIQUE: The risks, benefits, and alternatives were explained to the patient and/or the patient's family, including but not limited to bleeding, infection, pain, visceral or vascular damage, shock, and . The patient and/or the patient's family understood the risks and the alternatives and wished to proceed with the procedure. Informed written consent was obtained. A procedural time out was performed. The patient's name, date of , and procedure to be performed were verified. Utilizing ultrasound guidance, optimal location for entry to the peritoneal cavity was ascertained. The overlying skin was prepped and draped in the usual sterile fashion. Approximately 10 ml of 1% Xylocaine was injected locally for pain control. Using ultrasound guidance, an 8 Welsh catheter was introduced into the peritoneal cavity in the right lower quadrant without difficulty. Specimens: None. Blood loss: 1 ml. Complications: None. Supervisor Type Bar And Segment: None. Anesthesia: Local. Graft/Implant: None. FINDINGS: Initial images demonstrate ascites. Approximately 5 liters of serous fluid was aspirated and discarded. The patient tolerated the procedure well without complication. IMPRESSION: 1. Successful ultrasound-guided paracentesis. PROCEDURE: XR Chest. CLINICAL INDICATION: Chest pain TECHNIQUE: Single frontal view of the chest was obtained. COMPARISON: CR CHEST 01/13/2016 FINDINGS: The heart is within normal limits. The thoracic aorta is calcified. The lungs are clear. There is no pleural effusion or pneumothorax. RPTAT: AA IMPRESSION: No acute disease. Calcified aorta consistent with atherosclerotic disease. .Tomy Zambrano MD, MD Date Time Electronically viewed and signed by .Tomy Zambrano MD, MD on 07/04/2018 12:03 AMENDMENT: 07/04/2018 12:26:58 PM Tomy Zambrano M.d Limited evaluation of the left leg due to severe pain. PROCEDURE: US Lower extremity Venous. CLINICAL INDICATION: Bilateral lower extremity edema TECHNIQUE: Multiple sonographic images of the bilateral lower extremity deep venous system was obtained utilizing grayscale, color-flow, compressive sonography and doppler imaging with augmentation. The images were reviewed on a PACS workstation. COMPARISON: None. FINDINGS: There is normal compressibility and flow within the bilateral common femoral, femoral , posterior tibial and popliteal veins. RPTAT: AA IMPRESSION: No sonographic evidence for deep venous thrombosis. .Tomy Zambrano MD, Date Time Electronically viewed and signed by .Tomy Zambrano MD, MD on 07/04/2018 12:26 Hx of Present Illness Patient is a 48-year-old female with a history of alcohol cirrhosis status post multiple paracenteses on the transplant list, C. difficile, hypertension, IBS. Patient presents with 4 days of worsening left lower extremity redness and swelling. Patient also reports abdominal distention and did receive a paracentesis in the ER. Patient has no other complaints at this time. 1. Sepsis secondary to left lower extremity cellulitis Lactic acidosis secondary to sepsis and/or decreased clearance from liver disease IV antibiotics with cefepime 2. History of alcohol cirrhosis with persistent ascites Status post paracentesis in the ER Continue home meds Patient is on the transplant list 3. History of C. difficile No acute issues 4. Hyperkalemia IV fluids Monitor Hospital Course Patient was admitted for sepsis secondary to lower extremity cellulitis and started on IV antibiotics. Patient was found to have bacteremia and antibiotics were adjusted based on cultures. Patient was experiencing abdominal swelling and underwent therapeutic paracentesis. Diuretic dosages were adjusted for treatment of anasarca. Patients renal function was worsening and nephrology c onsultation was placed for evaluation given high suspicion of hepatorenal syndrome. Renal function returned to normal during course of hospitalization. ID was consulted for antibiotic management given cdiff history, bacteremia, and cellulitis. Podiatry was consulted given foot wound was not improving and patients underwent debridement,I&D, wound vac placement and skin graft appli cation with improvement in left foot wound. GI was consulted per patients request and underwent EGD and colonoscopy for evaluation for liver transplants. SNF consultation was placed and despite her completing a course of antibiotics and no longer required wound vac care, she was unable to ambulate or care for herself. Patient underwent 7 paracentesis during hospital stay with improvement in abdominal distension. Patient was also found to have a ruptured breast implants but given thrombocytopenia and decompensated liver failure, patient was instructed to follow up as outpatient. Patients left foot improved and cirrhosis remained stable. Patients presenting symptoms improved significantly and on day of discharge patients vitals and physical exam were stable. Patient was discharged to SNF in good condition. Home Meds Active Scripts Hydromorphone Hcl* (Dilaudid*) 4 Mg Tablet, 4 MG PO Q3H PRN for SEVERE PAIN LEVEL 7-10 for 10 Days, #30 TAB Prov:LOUIE RUIZ MD 08/24/18 Lubiprostone* (Amitiza*) 24 Mcg Capsule, 24 MCG PO BID for 30 Days, #60 CAP Prov:LOUIE RUIZ MD 08/23/18 Lactulose* (Lactulose*) 20 Gm/30 Ml Solution, 10 GM PO DAILY for 30 Days, #1 BOTTLE Prov:LOUIE RUIZ MD 08/23/18 Furosemide (Lasix) 20 Mg Tab, 20 MG PO DAILY for 30 Days, #30 TAB 6 Refills Prov:LOUIE RUIZ MD 08/23/18 Trazodone Hcl* (Trazodone Hcl*) 100 Mg Tablet, 100 MG PO HS PRN for insomnia for 30 Days, #30 TAB Prov:LOUIE RUIZ MD 08/23/18 Rifaximin* (Xifaxan*) 200 Mg Tab, 200 MG PO TID for 30 Days, #90 TAB 6 Refills Prov:LOUIE RUIZ MD 08/23/18 Midodrine* (Midodrine*) 10 Mg Tablet, 10 MG PO TID for 30 Days, #90 TAB Prov:LOUIE RUIZ MD 08/23/18 Hydrocodone/Acetaminophen ([place] 5-325 Tablet) 1 Each Tablet, 1 TAB PO Q6H PRN for PAIN, #7 TAB Prov:RADHA MORALES MD 06/28/18 Ondansetron (Ondansetron Odt) 4 Mg Tab.rapdis, 4 MG PO Q6H PRN for NAUSEA AND/OR VOMITING, #10 TAB Prov:ALEXANDRIA QUIROGA MD 06/14/18 Reported Medications Albuterol Sulfate* (Ventolin HFA*) 18 Gm Hfa.aer.ad, 2 PUFF INHALATION Q4H, #1 INHALER 06/28/18 Spironolactone* (Aldactone*) 100 Mg Tablet, 100 MG PO BID, #60 TAB 05/15/18 Discontinued Reported Medications Midodrine* (Midodrine*) 5 Mg Tablet, 5 MG PO TID, TAB 06/28/18 Lactulose (Constulose) 10 Gm/15 Ml Solution, 10 GM PO NEEDED 06/28/18 Omeprazole* (Omeprazole*) 20 Mg Capsule.dr, 20 MG PO BID, #60 CAP 05/15/18 Potassium Chloride* (K-Dur*) 20 Meq Tab.prt.sr, 20 MEQ PO BID, TAB.SA 05/15/18 Follow-up Plan 1. Follow up with your primary care physician in 1 week 2. Follow up with [facility] in 1 week () 3. Continue therapeutic paracentesis as previously scheduled 4. Follow up with Dr. Gómez in 2-4 weeks 5. Continue pain control as needed 6. Work with physical therapy daily as tolerated 7. If any concerning symptoms, please go to your closest emergency department Primary Care Provider [facility] Time spent on discharge: > 30 minutes LOUIE RUIZ MD Aug 24, 2018 17:15
== END 2018-08-24 12:50 | DRG 853 ==
LOC: E/R 11:25 → TEL 14:22 → CANRESERV 14:32 → EDBEDREQSVC 15:53 → EDBEDREQ 15:53 → ICU 07-06 04:03 → TEL 07-06 20:30 → PP2 07-12 17:45
PROVIDERS: ADMIT Internal Medicine; ATTEND Internal Medicine
PROC: 0W9G3ZZ Drainage of Peritoneal Cavity, Percutaneous Approach (ICD-10-PCS; 2018-07-04)
PROC: 0W9G3ZZ Drainage of Peritoneal Cavity, Percutaneous Approach (ICD-10-PCS; 2018-07-15)
PROC: 30233K1 Transfusion of Nonautologous Frozen Plasma into Peripheral Vein, Percutaneous Approach (ICD-10-PCS; 2018-07-18)
PROC: 30233N1 Transfusion of Nonautologous Red Blood Cells into Peripheral Vein, Percutaneous Approach (ICD-10-PCS; 2018-07-18)
PROC: 30233R1 Transfusion of Nonautologous Platelets into Peripheral Vein, Percutaneous Approach (ICD-10-PCS; 2018-07-18)
PROC: 0JBR0ZZ Excision of Left Foot Subcutaneous Tissue and Fascia, Open Approach (ICD-10-PCS; principal; 2018-07-18 18:00)
PROC: 0HRNXK3 Replacement of Left Foot Skin with Nonautologous Tissue Substitute, Full Thickness, External Approach (ICD-10-PCS; 2018-07-27)
PROC: 0JBR0ZZ Excision of Left Foot Subcutaneous Tissue and Fascia, Open Approach (ICD-10-PCS; 2018-07-27)
PROC: 0HRNXK3 Replacement of Left Foot Skin with Nonautologous Tissue Substitute, Full Thickness, External Approach (ICD-10-PCS; 2018-07-27)
PROC: 0W9G3ZZ Drainage of Peritoneal Cavity, Percutaneous Approach (ICD-10-PCS; 2018-07-29)
PROC: 0DJ08ZZ Inspection of Upper Intestinal Tract, Via Natural or Artificial Opening Endoscopic (ICD-10-PCS; 2018-08-04)
PROC: 0DJD8ZZ Inspection of Lower Intestinal Tract, Via Natural or Artificial Opening Endoscopic (ICD-10-PCS; 2018-08-04)
PROC: 0W9G3ZZ Drainage of Peritoneal Cavity, Percutaneous Approach (ICD-10-PCS; 2018-08-05)
PROC: 0W9G3ZZ Drainage of Peritoneal Cavity, Percutaneous Approach (ICD-10-PCS; 2018-08-08)
PROC: 0W9G3ZZ Drainage of Peritoneal Cavity, Percutaneous Approach (ICD-10-PCS; 2018-08-10)
PROC: 0W9G3ZZ Drainage of Peritoneal Cavity, Percutaneous Approach (ICD-10-PCS; 2018-08-15)
PROC: 0HRLXJ4 Replacement of Left Lower Leg Skin with Synthetic Substitute, Partial Thickness, External Approach (ICD-10-PCS; 2018-08-24)
DX: A41.59 Other Gram-negative sepsis (principal); K65.2 Spontaneous bacterial peritonitis; L03.116 Cellulitis of left lower limb; E87.2 Acidosis; E87.1 Hypo-osmolality and hyponatremia; A04.72 Enterocolitis due to Clostridium difficile, not specified as recurrent; K76.6 Portal hypertension; I85.10 Secondary esophageal varices without bleeding; L97.528 Non-pressure chronic ulcer of other part of left foot with other specified severity; G93.40 Encephalopathy, unspecified; N17.9 Acute kidney failure, unspecified; D61.818 Other pancytopenia; T85.49XA Other mechanical complication of breast prosthesis and implant, initial encounter; D68.4 Acquired coagulation factor deficiency; E87.5 Hyperkalemia; K70.31 Alcoholic cirrhosis of liver with ascites; B96.89 Other specified bacterial agents as the cause of diseases classified elsewhere; K31.89 Other diseases of stomach and duodenum; K57.30 Diverticulosis of large intestine without perforation or abscess without bleeding; K64.4 Residual hemorrhoidal skin tags; L08.89 Other specified local infections of the skin and subcutaneous tissue; Z87.891 Personal history of nicotine dependence; Z76.82 Awaiting organ transplant status; B96.1 Klebsiella pneumoniae [K. pneumoniae] as the cause of diseases classified elsewhere; F34.0 Cyclothymic disorder
CPT/HCPCS: 36415; 36430; 71045; 73718; 76642; 76705; 76775; 80048; 80053; 80076; 81003; 82105; 82140; 82962; 83540; 83605; 83735; 83935; 84100; 84155; 84300; 84484; 84703; 85025; 85049; 85610; 85670; 85730; 86078; 86850; 86900; 86901; 86920; 87040; 87070; 87075; 87081; 87086; 87102; 87116; 88104; 88107; 88304; 88305; 89051; 93005; 93970; 96374; 96375; 96376; 97110; 97116; 97162; 97530; J0692; J0696; J1100; J1170; J1200; J1335; J1885; J2250; J2270; J2370; J2405; J2543; J2765; J2795; J3010; J3370; J3475; J7030; J7040; J7050; J7060; P9016; P9035; P9045; P9047; P9059

== ENCOUNTER 2018-08-25 18:18 | Emergency (ER) | payer OTHER ==
[~2018-08-25] VITALS: Ht 157.5 cm; Wt 69.5 kg
[~2018-08-25 18:18] MED LIST changes: +HYDR4TAB51 PO; -LACT10SO53 PO; +LACT20SO2 PO; +LAS20 PO; +LUBI24CA7 PO; -METO10TA92 PO; -METO5TAB58 PO; +MIDO10TA PO; -MIDO5TAB PO; -OMEP20CA16 PO; -POTA20TA15 PO; +RIFA200T5 PO; -SPIR50TA PO; +TRA100 PO
[2018-08-25 19:08] VITALS: Ht 157.5 cm; Wt 69.5 kg
[2018-08-25] MEDS ORDERED: ONDANSETRON (ODT) 4 MG TAB ODT STA (20:20)
--- NOTE | 2018-08-25 20:23 | ERD ---
ER Documentation Chief Complaint Chief Complaint BIBA C/O RUQ AP X24 HOURS. NO N/V HPI Patient is a 48-year-old female with cirrhosis who presents with the patient was brought in by ambulance. She was discharged after 52 days of admission yesterday. She said that her pain is now a 10 out of 10 and "they did not have the right pain regimen for me at the nursing facility". She also says "I might need a paracentesis". Upon review of old medical record she has multiple visits to the ER for various complaints. Her primary doctors at the [facility]. ROS All systems reviewed and are negative except as per history of present illness. Medications Home Meds Active Scripts Hydromorphone Hcl* (Dilaudid*) 4 Mg Tablet, 4 MG PO Q3H PRN for SEVERE PAIN [place] 7-10 for 10 Days, #30 TAB Prov:LOUIE RUIZ MD 08/24/18 Lubiprostone* (Amitiza*) 24 Mcg Capsule, 24 MCG PO BID for 30 Days, #60 CAP Prov:LOUIE RUIZ MD 08/23/18 Lactulose* (Lactulose*) 20 Gm/30 Ml Solution, 10 GM PO DAILY for 30 Days, #1 BOTTLE Prov:LOUIE RUIZ MD 08/23/18 Furosemide (Lasix) 20 Mg Tab, 20 MG PO DAILY for 30 Days, #30 TAB 6 Refills Prov:LOUIE RUIZ MD 08/23/18 Trazodone Hcl* (Trazodone Hcl*) 100 Mg Tablet, 100 MG PO HS PRN for insomnia for 30 Days, #30 TAB Prov:LOUIE RUIZ MD 08/23/18 Rifaximin* (Xifaxan*) 200 Mg Tab, 200 MG PO TID for 30 Days, #90 TAB 6 Refills Prov:LOUIE RUIZ MD 08/23/18 Midodrine* (Midodrine*) 10 Mg Tablet, 10 MG PO TID for 30 Days, #90 TAB Prov:LOUIE RUIZ MD 08/23/18 Hydrocodone/Acetaminophen ([place] 5-325 Tablet) 1 Each Tablet, 1 TAB PO Q6H PRN for PAIN, #7 TAB Prov:RADHA MORALES MD 06/28/18 Ondansetron (Ondansetron Odt) 4 Mg Tab.rapdis, 4 MG PO Q6H PRN for NAUSEA AND/OR VOMITING, #10 TAB Prov:ALEXANDRIA QUIROGA MD 06/14/18 Reported Medications Albuterol Sulfate* (Ventolin HFA*) 18 Gm Hfa.aer.ad, 2 PUFF INHALATION Q4H, #1 INHALER 06/28/18 Spironolactone* (Aldactone*) 100 Mg Tablet, 100 MG PO BID, #60 TAB 05/15/18 Discontinued Reported Medications Midodrine* (Midodrine*) 5 Mg Tablet, 5 MG PO TID, TAB 06/28/18 Lactulose (Constulose) 10 Gm/15 Ml Solution, 10 GM PO NEEDED 06/28/18 Omeprazole* (Omeprazole*) 20 Mg Capsule.dr, 20 MG PO BID, #60 CAP 05/15/18 Potassium Chloride* (K-Dur*) 20 Meq Tab.prt.sr, 20 MEQ PO BID, TAB.SA 05/15/18 Allergies Allergies: Coded Allergies: No Known Allergy (Unverified , 07/04/18) PMhx/Soc History of Surgery: Yes (BRAIN SX, TONSILLECTOMY, CHOLECYSTECTOMY, , HERNIA SX) Anesthesia Reaction: No Hx 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 Disorder: No Hx Respiratory Disorders: No Hx Cardiac Disorders: Yes (CARDIOMEGALY, HYPERLIPIDEMIA) Hx Psychiatric Problems: Yes (LIVER CIRHOSSIS, PTSD, BIPOLAR, OCD ) Hx Miscellaneous Medical Probl: No Hx Alcohol Use: Yes Hx Substance Use: No Hx Tobacco Use: Yes Smoking Status: Smoker,current status unk FmHx Family History: No diabetes Physical Exam Vitals Vital Signs Date Temp Pulse Resp B/P (MAP) Pulse Ox O2 O2 Flow FiO2 Time Delivery Rate 08/25/18 105 19 112/68 98 Room Air 21:54 (83) 08/25/18 99.2 97 18 105/66 97 19:08 (79) Physical Exam Const: No acute distress Head: Atraumatic Eyes: Normal Conjunctiva ENT: Normal External Ears, Nose and Mouth. Neck: Full range of motion. No meningismus. Resp: Clear to auscultation bilaterally Cardio: Regular rate and rhythm, no murmurs Abd: Distended abdomen Skin: No petechiae or rashes Back: No midline or flank tenderness Ext: No cyanosis, or edema Neur: Awake and alert Psych: Normal Mood and Affect Results 24 hrs Current Medications Medications Dose Sig/Corey Start Time Status Last (Trade) Ordered Route PRN Stop Time Admin Dose Reason Admin Ondansetron 4 mg ONCE STAT 08/25/18 DC 08/25/18 HCl (Zofran ODT 20:20 20:22 Odt) 08/25/18 20:21 Procedures/MDM EKG read by me: Rate/Rhythm: Sinus tachycardia at a rate of 101 Intervals: Normal Impression: Tachycardia without ischemia Chest x-ray read by radiology. Patient is a 48-year-old female with cirrhosis who presents saying that she is in pain. I believe there is some pain seeking behavior here and I do not feel she requires readmission to the hospital after a 52-day stay. I doubt spontaneous bacterial peritonitis. I believe outpatient management is appropriate but the patient will need close follow-up with the primary doctor within 24-48 hours. The patient can return for any worsening symptoms. The patient was seen by Dr. Moraes from the panel team who does not feel she requires further workup or admission. EKG and chest x-ray showed no signs of significant etiology. I doubt acute coronary syndrome, pneumonia, pneumothorax, pulmonary embolism, or aortic dissection. Departure Diagnosis: Primary Impression: Chest pain Chest pain type: unspecified Qualified Codes: R07.9 - Chest pain, unspecif ied Additional Impression: Abdominal pain Abdominal location: generalized Qualified Codes: R10.84 - Generalized abdominal pain Condition: Fair Patient Instructions: Abdominal Pain, Chest Pain, Uncertain Cause Additional Instructions: Call your primary care doctor TOMORROW for an appointment during the next 1-2 days.See the doctor sooner or return here if your condition worsens before your appointment time. ANDRIA PELAEZ MD Aug 25, 2018 20:23
[2018-08-25 21:54] VITALS: BP 112/68; PULSE 105; RESP 19
== END 2018-08-25 21:58 | disposition home or self-care (01) ==
LOC: E/R 18:18
DX: R07.9 Chest pain, unspecified (principal); F17.210 Nicotine dependence, cigarettes, uncomplicated
CPT/HCPCS: 71045; 93005; Z7502; Z7610

== ENCOUNTER 2018-09-26 17:43 | Inpatient (IN) | payer OTHER ==
[~2018-09-26] VITALS: Ht 154.9 cm; Wt 69.4 kg
--- NOTE | 2018-09-26 18:38 | ERD ---
ER Documentation Chief Complaint Chief Complaint Abdominal distention HPI The patient is a 48-year-old female, presenting to the ER because of abdominal distention today, her last paracentesis was about 4 weeks ago, complains of loose bowel movement today. She did receive Dilaudid at 4:30 PM at the group home for pain. She had similar symptoms previously, denies fever, chills, neck pain, chest pain, dyspnea, dysuria, denies hematemesis/hematochezia. She does not smoke nor drink Past medical history: Cardiomyopathy, dyslipidemia, cirrhosis, PTSD, bipolar, thrombocytopenia, OCD Past surgical history: Craniotomy, cholecystectomy, 2 , frequent paracentesis ROS All systems reviewed and are negative except as per history of present illness. Medications Home Meds Active Scripts Hydromorphone Hcl* (Dilaudid*) 4 Mg Tablet, 4 MG PO Q3H PRN for SEVERE PAIN LEVEL 7-10 for 10 Days, #30 TAB Prov:LOUIE RUIZ MD 08/24/18 Lubiprostone* (Amitiza*) 24 Mcg Capsule, 24 MCG PO BID for 30 Days, #60 CAP Prov:LOUIE RUIZ MD 08/23/18 Lactulose* (Lactulose*) 20 Gm/30 Ml Solution, 10 GM PO DAILY for 30 Days, #1 BOTTLE Prov:LOUIE RUIZ MD 08/23/18 Furosemide (Lasix) 20 Mg Tab, 20 MG PO DAILY for 30 Days, #30 TAB 6 Refills Prov:LOUIE RUIZ MD 08/23/18 Trazodone Hcl* (Trazodone Hcl*) 100 Mg Tablet, 100 MG PO HS PRN for insomnia for 30 Days, #30 TAB Prov:LOUIE RUIZ MD 08/23/18 Rifaximin* (Xifaxan*) 200 Mg Tab, 200 MG PO TID for 30 Days, #90 TAB 6 Refills Prov:LOUIE RUIZ MD 08/23/18 Midodrine* (Midodrine*) 10 Mg Tablet, 10 MG PO TID for 30 Days, #90 TAB Prov:LOUIE RUIZ MD 08/23/18 Hydrocodone/Acetaminophen ([place] 5-325 Tablet) 1 Each Tablet, 1 TAB PO Q6H PRN for PAIN, #7 TAB Prov:RADHA MORALES MD 06/28/18 Ondansetron (Ondansetron Odt) 4 Mg Tab.rapdis, 4 MG PO Q6H PRN for NAUSEA AND/OR VOMITING, #10 TAB Prov:ALEXANDRIA QUIROGA MD 06/14/18 Reported Medications Albuterol Sulfate* (Ventolin HFA*) 18 Gm Hfa.aer.ad, 2 PUFF INHALATION Q4H, #1 INHALER 06/28/18 Spironolactone* (Aldactone*) 100 Mg Tablet, 100 MG PO BID, #60 TAB 05/15/18 Allergies Allergies: Coded Allergies: No Known Allergy (Unverified , 07/04/18) PMhx/Soc History of Surgery: Yes (BRAIN SX, TONSILLECTOMY, CHOLECYSTECTOMY, , HERNIA SX) Anesthesia Reaction: No Hx 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 Disorder: No Hx Respiratory Disorders: No Hx Cardiac Disorders: Yes (CARDIOMEGALY, HYPERLIPIDEMIA) Hx Psychiatric Problems: Yes (LIVER CIRHOSSIS, PTSD, BIPOLAR, OCD ) Hx Miscellaneous Medical Probl: No Hx Alcohol Use: Yes Hx Substance Use: No Hx Tobacco Use: Yes Physical Exam Vitals Vital Signs Date Temp Pulse Resp B/P (MAP) Pulse Ox O2 O2 Flow FiO2 Time Delivery Rate 09/26/18 Nasal 1 19:10 Cannula 09/26/18 99.1 96 19 100/66 98 18:42 (77) Physical Exam Const: No acute distress. Head: Atraumatic. Eyes: Normal Conjunctiva. ENT: Normal External Ears, Nose and Mouth. Neck: Full range of motion. No meningismus. Resp: Clear to auscultation bilaterally. Cardio: Regular rate and rhythm. Abd: Soft, distended, normal bowel sounds, vague minimal abdominal discomfort, no rigidity, rebound, CVA tenderness Skin: No petechiae or rashes. Back: No midline or flank tenderness. Ext: No cyanosis, or edema. Neur: Awake and alert. No focal deficit Psych: Normal Mood and Affect. Result Diagram: 09/26/18190009/26/181900 Results 24 hrs Laboratory Tests Test 09/26/18 18:58 09/26/18 19:01 09/26/18 19:15 POC Venous Lactate 1.8 mmol/L White Blood Count 7.6 10^3/ul Red Blood Count 2.02 10^6/ul Hemoglobin 7.4 g/dl Hematocrit 21.5 % Mean Corpuscular Volume 106.4 fl Mean Corpuscular Hemoglobin 36.6 pg Mean Corpuscular 34.4 g/dl Hemoglobin Concent Red Cell Distribution Width 18.6 % Platelet Count 49 10^3/UL Mean Platelet Volume 10.1 fl Immature Granulocytes % 0.800 % Neutrophils % % Segmented Neutrophils % (Manual) 74 % Lymphocytes % % Lymphocytes % (Manual) 13 % Monocytes % % Monocytes % (Manual) 10 % Eosinophils % % Eosinophils % (Manual) 2 % Basophils % % Basophils % (Manual) 1 % Nucleated Red Blood Cells % 0.0 /100WBC Immature Granulocytes # 0.060 10^3/ul Neutrophils # 10^3/ul Lymphocytes (Manual) 0.9 10^3/ul Lymphocytes # 10^3/ul Monocytes # 10^3/ul Monocytes # (Manual) 0.7 10^3/ul Eosinophils # 10^3/ul Basophils # 10^3/ul Basophils # (Manual) 0.0 10^3/ul Nucleated Red Blood Cells # 10^3/ul Platelet Estimate DECREASED Polychromasia 1+ Poikilocytosis 3+ Anisocytosis 1+ Macrocytosis 1+ Tear Drop Cells 1+ Ovalocytes 1+ Acanthocytes 2+ Prothrombin Time 33.4 Sec Prothrombin Time Ratio 2.6 INR International 3.28 Normalized Ratio Activated Partial Thromboplast 46.8 Sec Time Sodium Level 124 mmol/L Potassium Level 4.5 mmol/L Chloride Level 96 mmol/L Carbon Dioxide Level 23 mmol/L Anion Gap 5 Blood Urea Nitrogen 6 mg/dl Creatinine 0.46 mg/dl Est Glomerular Filtrat > 60 mL/min Rate mL/min Glucose Level 107 mg/dl Calcium Level 7.8 mg/dl Total Bilirubin 7.1 mg/dl Direct Bilirubin 0.90 mg/dl Indirect Bilirubin 6.2 mg/dl Aspartate Amino 41 IU/L Transf (AST/SGOT) Alanine 35 IU/L Aminotransferase (ALT/SGPT) Alkaline Phosphatase 172 IU/L Troponin I < 0.012 ng/ml Total Protein 5.8 g/dl Albumin 2.2 g/dl Globulin 3.60 g/dl Albumin/Globulin Ratio 0.61 Urine Color KALEB Urine Clarity SLIGHTLY CLOUDY Urine pH 5.0 Urine Specific [place] 1.016 Urine Ketones NEGATIVE mg/dL Urine Nitrite NEGATIVE mg/dL Urine Bilirubin 1+ mg/dL Urine Urobilinogen 2+ mg/dL Urine Leukocyte Esterase NEGATIVE Cindi/ul Urine Microscopic RBC 1 /HPF Urine Microscopic WBC 0 /HPF Urine Squamous Epithelial Cells MODERATE /HPF Urine Bacteria FEW /HPF Urine Mucus FEW /HPF Urine Hemoglobin NEGATIVE mg/dL Urine Glucose NEGATIVE mg/dL Urine Total Protein NEGATIVE mg/dl Current Medications Medications Dose Sig/Corey Start Time Status Last (Trade) Ordered Route PRN Stop Time Admin Dose Reason Admin Sodium 1,950 ml BOLUS OVER 2 09/26/18 Cancel Chloride HOURS STAT 18:46 (NS) IV* 09/26/18 18:47 Ondansetron 4 mg ONCE STAT 09/26/18 DC HCl (Zofran IV 19:58 Inj) 09/26/18 19:59 Fentanyl 25 mcg ONCE ONCE 09/26/18 DC (Sublimaze) IV 20:00 09/26/18 20:01 Ceftriaxone 50 ml @ ONCE ONCE 09/26/18 Sodium 100 mls/hr IVPB 20:00 09/26/18 20:29 Procedures/[place] [id number] Radiology Main Line: [phone] DIAGNOSTIC IMAGING REPORT Patient: ESTHER AGUILLON : 1970 Age: 48 Sex: F MR #: [id number] DOS: 09/26/18 1846 Ordering MD: ALEXANDRIA QUIROGA MD Location: E/R Room/Bed: PROCEDURE: XR Chest AP portable CLINICAL INDICATION: Sepsis TECHNIQUE: An AP portable radiograph of the chest was submitted. COMPARISON: 08/25/2018 FINDINGS: Support Hardware: None Cardiovascular: The heart remains mildly enlarged although pulmonary vasculature appears unremarkable. The aorta again appears atherosclerotic. Lung [place]: The patient is again taken a suboptimal inspiration. There is improved now minimal discoid atelectasis at the lung bases. Pleural Spaces: No pneumothorax or pleural effusion is identified. Osseous Structures: The osseous structures appear intact. Soft Tissues: The soft tissues appear unremarkable. IMPRESSION: 1. Mild cardiomegaly without CHF. The aorta again appears atherosclerotic. 2. Suboptimal inspiration with improved discoid atelectasis at the lung bases. No effusion is evident. 3. Otherwise, stable and unremarkable portable chest. Physician Jessica Date Time Electronically viewed and signed by Physician Jessica on 09/26/2018 19:06 RH/ CC: ALEXANDRIA QUIROGA MD [id number] EKG: Read by emergency physician Rate/Rhythm: Normal Sinus Rhythm 90 beats/min QRS, ST, T-waves: No ST elevation, no T inversion, PVC Impression: Abnormal EKG MEDICAL MAKING DECISION: The patient is a 48-year-old female, presenting with recurrent ascites, acute hyponatremia, anemia that is suspected for acute GI bleeding, her hemoglobin was 8.9 on August 23, 2018, today only 7.4. She was treated with Zofran IV for nausea and fentanyl 25 mcg IV for her pain, Rocephin IV empirically for acute GI bleeding The differential diagnoses considered include but are not limited to esophageal varices, cholelithiasis, cholecystitis, choledocholithiasis, cholangitis, pancreatitis, hepatitis, gastritis, peptic ulcer disease, gastric ulcer, appendicitis, cystitis, diverticulitis, partial small bowel obstruction. Departure Diagnosis: Primary Impression: Ascites Additional Impressions: Hyponatremia GI bleed Anemia Thrombocytopenia Condition: Stable Comments I discussed the findings with the patient. I discussed the patient with Dr Olsen at , who was made aware of the lab, the treatment, the patient condition. The patient is admitted to [facility] Disclaimer: Inadvertent spelling and grammatical errors are likely due to EHR/dictation software use and do not reflect on the overall quality of patient care. Also, please note that the electronic time recorded on this note does not necessarily reflect the actual time of the patient encounter. ALEXANDRIA QUIROGA MD Sep 26, 2018 18:38
[2018-09-26] MEDS ORDERED: SODIUM CHLORIDE 0.9% 1L BAG IV* STA (18:46)
[2018-09-26] MEDS ORDERED: ONDANSETRON 4 MG INJ IV STA (19:58)
[2018-09-26] MEDS ORDERED: CEFTRIAXONE 1 GM/50 ML (PMX) 50 ML IVPB ONE (20:00)
[2018-09-26] MEDS ORDERED: FENTAnyl 50 MCG/ML VIAL IV ONE (20:00)
[2018-09-26 20:50] VITALS: BP 99/57; PULSE 90; RESP 16
[2018-09-26 20:53] VITALS: PULSE 90
[2018-09-26 21:17] VITALS: Ht 154.9 cm; Wt 69.4 kg
[2018-09-26] MEDS ORDERED: POTA20TA15 PO (21:31)
[2018-09-26] MEDS ORDERED: MIDO5TAB PO (21:31)
[2018-09-26] MEDS ORDERED: LORA0.5T PO (21:31)
[2018-09-26] MEDS ORDERED: HYDR4TAB PO (21:31)
[2018-09-26] MEDS ORDERED: ZOLP5TAB7 PO (21:31)
[2018-09-26] MEDS ORDERED: ALBUTEROL/IPRATROPIUM (NEB) 3 ML AMP HHN PRN (22:00)
[2018-09-26] MEDS ORDERED: NACL 0.9% 3 ML SYG IV SCH (22:00)
[2018-09-26] MEDS ORDERED: HYDROCODONE/APAP (5/325) TAB PO PRN (22:00)
[2018-09-26] MEDS ORDERED: ACETAMINOPHEN 325 MG TAB PO PRN (22:00)
[2018-09-26] MEDS ORDERED: ONDANSETRON 4 MG INJ IV PRN (22:00)
[2018-09-26] MEDS ORDERED: FUROSEMIDE 20 MG INJ IV ONE (22:30)
[2018-09-26] MEDS ORDERED: SODIUM CHLORIDE 1 GM TAB PO ONE (22:30)
--- NOTE | 2018-09-26 23:48 | HP ---
Date/Time of Note Date/Time of Note DATE: 09/26/18 TIME: 23:48 Assessment/Plan VTE Prophylaxis Pharmacological prophylaxis: heparin Lines/Catheters IV Catheter Type (from Nrs): Saline Lock Assessment/Plan Assessment/Plan 1. Decompensated alcoholic liver cirrhosis: Last paracentesis 6 weeks ago with removal of 3.6 L -Order ultrasound-guided paracentesis -Continue Lasix and Aldactone 2. Hypervolemic hyponatremia: Secondary to above 3. Anemia: Likely of chronic disease -FOBT, check ferritin (patient had recent iron panel) -Transfuse as needed 4. History of Klebsiella bacteremia: During recent hospitalization 5. Left foot wound: Status post recent debridement with a wound VAC -Podiatry consult as needed 6. History of C. difficile colitis -Patient reported loose stool, but she is on a lactulose -Place on isolation and recheck a C. difficile 7. History of left breast implant Rupture -Not acute issue Result Diagram: 09/26/18 1901 09/26/18 1901 Results 24hrs Laboratory Tests Test 09/26/18 18:58 09/26/18 19:01 09/26/18 19:15 09/26/18 22:12 POC Venous 1.8 Lactate White Blood Count 7.6 # Red Blood Count 2.02 #L Hemoglobin 7.4 L Hematocrit 21.5 #L Mean Corpuscular 106.4 H Volume Mean Corpuscular 36.6 H Hemoglobin Mean Corpuscular 34.4 Hemoglobin Concen t Red Cell 18.6 H Distribution Width Platelet Count 49 L Mean Platelet 10.1 Volume Immature 0.800 H Granulocytes % Neutrophils % Segmented 74 Neutrophils % (Manual) Lymphocytes % Lymphocytes % 13 L (Manual) Monocytes % Monocytes % 10 (Manual) Eosinophils % Eosinophils % 2 (Manual) Basophils % Basophils % 1 (Manual) Nucleated Red 0.0 Blood Cells % Immature 0.060 H Granulocytes # Neutrophils # Lymphocytes 0.9 (Manual) Lymphocytes # Monocytes # Monocytes # 0.7 (Manual) Eosinophils # Basophils # Basophils # 0.0 (Manual) Nucleated Red Blood Cells # Platelet Estimate DECREASED Polychromasia 1+ Poikilocytosis 3+ Anisocytosis 1+ Macrocytosis 1+ Tear Drop Cells 1+ Ovalocytes 1+ Acanthocytes 2+ Prothrombin Time 33.4 H Prothrombin Time 2.6 Ratio INR International 3.28 Normalized Ratio Activated 46.8 H Partial Thrombopl ast Time Sodium Level 124 L Potassium Level 4.5 Chloride Level 96 L Carbon Dioxide 23 Level Anion Gap 5 Blood Urea 6 L Nitrogen Creatinine 0.46 Est Glomerular > 60 Filtrat Rate mL/min Glucose Level 107 Calcium Level 7.8 L Total Bilirubin 7.1 H Direct Bilirubin 0.90 H Indirect 6.2 H Bilirubin Aspartate Amino 41 Transf (AST/SGOT) Alanine 35 Aminotransferase (ALT/SGPT) Alkaline 172 H Phosphatase Troponin I < 0.012 Total Protein 5.8 L Albumin 2.2 L Globulin 3.60 H Albumin/Globulin 0.61 Ratio Urine Color KALEB Urine Clarity SLIGHTLY CLOUDY A Urine pH 5.0 Urine Specific 1.016 [place] Urine Ketones NEGATIVE Urine Nitrite NEGATIVE Urine Bilirubin 1+ H Urine 2+ H Urobilinogen Urine Leukocyte NEGATIVE Esterase Urine Microscopic 1 RBC Urine Microscopic 0 WBC Urine Squamous MODERATE Epithelial Cells Urine Bacteria FEW A Urine Mucus FEW A Urine Hemoglobin NEGATIVE Urine Glucose NEGATIVE Urine Total NEGATIVE Protein Lactic Acid Level 1.7 HPI/ROS Admit Date/Time Admit Date/Time Sep 26, 2018 at 20:00 Hx of Present Illness This is a 48-year-old female with history of decompensated alcoholic liver cirrhosis, SBP, Klebsiella bacteremia, left foot wound status post debridement with wound VAC, C. difficile colitis, left breast implant rupture, PTSD, bipolar. Patient was brought from SNF for abdominal distention. Patient was discharged from here about a month ago. At that time she had a paracentesis with removal of 3.6 L. She also have debridement of the left foot wound. Blood culture was positive for Klebsiella. PMH/Family/Social Past Medical History Past Surgical History Past Surgical Hx: other Family History Significant Family History: no pertinent family hx Social History Alcohol Use: other Smoking Status: Unknown if ever smoked Drug Use: other Exam Constitutional: other (no acute distress) Head: normocephalic ENMT: nl external ears & nose Neck: supple Respiratory: normal air movement Cardiovascular: nl pulses Gastrointestinal: soft Extremities: normal pulses Medications Current Medications IV Flush (NS 3 ml) 3 ml PER PROTOCOL IV ; Start 09/26/18 at 22:00 Ondansetron HCl (Zofran Inj) 4 mg Q6H PRN IV NAUSEA/VOMITING; Start 09/26/18 at 22:00 Acetaminophen (Tylenol Tab) 650 mg Q6H PRN PO .PAIN 1-3 OR TEMP; Start 09/26/18 at 22:00 Acetaminophen/ Hydrocodone Bitart ([place] (5/325)) 1 tab Q6H PRN PO .PAIN 4-6; Start 09/26/18 at 22:00 Albuterol/ Ipratropium (Duoneb) 3 ml Q2H RESP THERAPY PRN HHN SHORTNESS OF BREATH; Start 09/26/18 at 22:00 Albuterol (Ventolin Hfa) 2 puff Q4 INH ; Start 09/27/18 at 01:00 Furosemide (Lasix) 20 mg DAILY PO ; Start 09/27/18 at 09:00 Lactulose (Enulose) 10 gm DAILY PO ; Start 09/27/18 at 09:00 Lorazepam (Ativan) 0.5 mg DAILY PO ; Start 09/27/18 at 09:00 Lubiprostone (Amitiza) 24 mcg BID PO ; Start 09/27/18 at 09:00 Midodrine (Proamatine) 5 mg DAILY PO ; Start 09/27/18 at 09:00 Potassium Chloride (Klor-Con 20) 20 meq DAILY PO ; Start 09/27/18 at 09:00 Spironolactone (Aldactone) 100 mg BID PO ; Start 09/27/18 at 09:00 Zolpidem Tartrate (Ambien) 5 mg QHS PO ; Start 09/27/18 at 21:00 Zolpidem Tartrate (Ambien) 5 mg ONCE PRN PO INSOMNIA; Start 09/27/18 at 00:00; Status UNV Coded Allergies: No Known Allergy (Unverified , 09/26/18) Social History Smoking Status: Unknown if ever smoked Exam/Review of Systems Vital Signs Vitals Vital Signs Date Temp Pulse Resp B/P (MAP) Pulse Ox O2 O2 Flow FiO2 Time Delivery Rate 09/26/18 90 20:53 09/26/18 98.3 16 99/57 (71) 95 Room Air 20:50 09/26/18 1.0 20:23 LEVAR MCLAIN MD Sep 26, 2018 23:48
[2018-09-27] VITALS (10 sets, daily range): BP systolic 90–107; BP diastolic 51–58; PULSE 88–105; RESP 17–19
[2018-09-27] MEDS ORDERED: ZOLPIDEM 5 MG TAB PO PRN
[2018-09-27] MEDS: ALBUTEROL HFA 8 GM INHALER INH SCH ×6 (01:00→20:58)
[2018-09-27] MEDS ORDERED: morphine 4 MG/ML VIAL IV STA (02:44)
[2018-09-27] MEDS: ALBUMIN HUMAN 25% 100 ML IV SCH ×3 (06:15→21:01)
[2018-09-27] MEDS: LACTULOSE 30ML CUP PO SCH (09:19)
[2018-09-27] MEDS: POTASSIUM CHLORIDE (SR) 20 MEQ TAB PO SCH (09:20)
[2018-09-27] MEDS: SPIRONOLACTONE 50 MG TAB PO SCH ×2 (09:20→20:57)
[2018-09-27] MEDS: LUBIPROSTONE 24 MCG CAP PO SCH ×2 (09:20→20:57)
[2018-09-27] MEDS: LORAZEPAM 0.5 MG TAB PO SCH (09:20)
[2018-09-27] MEDS: MIDODRINE 5 MG TAB PO SCH (09:20)
[2018-09-27] MEDS: FUROSEMIDE 20 MG TAB PO SCH (09:20)
[2018-09-27] MEDS ORDERED: SOD CHLORIDE 0.9% 250 ML IV* ONE (10:21)
[2018-09-27] MEDS: HYDROmorphONE 0.5 MG/0.5 ML SYG IV PRN ×3 (11:53→22:02)
[2018-09-27] MEDS: MICONAZOLE 2% 30 GM CR TOP SCH ×2 (14:18→20:57)
--- NOTE | 2018-09-27 15:19 | PN ---
Date/Time of Note Date/Time of Note DATE: 09/27/18 TIME: 15:18 Assessment/Plan VTE Prophylaxis Risk score (from [facility] [place])>0 risk: 1 SCD applied (from [facility] [place]): Yes Pharmacological prophylaxis: NA/contraindicated Pharm contraindication: liver dx Lines/Catheters IV [facility]ter Type (from [facility] [place] Urinary Cath still in place: No Assessment/Plan Hospital Course 1. Decompensated alcoholic liver cirrhosis: Last paracentesis 6 weeks ago with removal of 3.6 L -Order ultrasound-guided paracentesis -Continue Lasix and Aldactone 2. Hypervolemic hyponatremia: Secondary to above 3. Anemia: Likely of chronic disease and cirrhosis -Transfuse 2 units -No reports of melena 4. History of Klebsiella bacteremia: During recent hospitalization 5. Left foot wound: Status post recent debridement with a wound VAC -Podiatry consult as needed 6. History of C. difficile colitis -Patient reported loose stool, but she is on a lactulose -No evidence of acute C. difficile infection 7. History of left breast implant fracture -Not acute issue Result Diagram: 09/27/18 0529 09/27/18 0529 Results 24hrs Laboratory Tests Test 09/26/18 18:58 09/26/18 19:01 09/26/18 19:15 09/26/18 22:12 POC Venous 1.8 Lactate White Blood 7.6 # Count Red Blood Count 2.02 #L Hemoglobin 7.4 L Hematocrit 21.5 #L Mean Corpuscular 106.4 H Volume Mean Corpuscular 36.6 H Hemoglobin Mean Corpuscular 34.4 Hemoglobin Jaclyn nt Red Cell 18.6 H Distribution Width Platelet Count 49 L Mean Platelet 10.1 Volume Immature 0.800 H Granulocytes % Neutrophils % Segmented 74 Neutrophils % (Manual) Lymphocytes % Lymphocytes % 13 L (Manual) Monocytes % Monocytes % 10 (Manual) Eosinophils % Eosinophils % 2 (Manual) Basophils % Basophils % 1 (Manual) Nucleated Red 0.0 Blood Cells % Immature 0.060 H Granulocytes # Neutrophils # Lymphocytes 0.9 (Manual) Lymphocytes # Monocytes # Monocytes # 0.7 (Manual) Eosinophils # Basophils # Basophils # 0.0 (Manual) Nucleated Red Blood Cells # Platelet DECREASED Estimate Polychromasia 1+ Poikilocytosis 3+ Anisocytosis 1+ Macrocytosis 1+ Tear Drop Cells 1+ Ovalocytes 1+ Acanthocytes 2+ Prothrombin Time 33.4 H Prothrombin Time 2.6 Ratio INR 3.28 International Normalized Ratio Activated 46.8 H Partial Thrombop last Time Sodium Level 124 L Potassium Level 4.5 Chloride Level 96 L Carbon Dioxide 23 Level Anion Gap 5 Blood Urea 6 L Nitrogen Creatinine 0.46 Est Glomerular > 60 Filtrat Rate mL/min Glucose Level 107 Calcium Level 7.8 L Total Bilirubin 7.1 H Direct Bilirubin 0.90 H Indirect 6.2 H Bilirubin Aspartate Amino 41 Transf (AST/SGOT ) Alanine 35 Aminotransferase (ALT/SGPT) Alkaline 172 H Phosphatase Troponin I < 0.012 Total Protein 5.8 L Albumin 2.2 L Globulin 3.60 H Albumin/Globulin 0.61 Ratio Urine Color KALEB Urine Clarity SLIGHTLY CLOUDY A Urine pH 5.0 Urine Specific 1.016 [place] Urine Ketones NEGATIVE Urine Nitrite NEGATIVE Urine Bilirubin 1+ H Urine 2+ H Urobilinogen Urine Leukocyte NEGATIVE Esterase Urine 1 Microscopic RBC Urine 0 Microscopic WBC Urine Squamous MODERATE Epithelial Cells Urine Bacteria FEW A Urine Mucus FEW A Urine Hemoglobin NEGATIVE Urine Glucose NEGATIVE Urine Total NEGATIVE Protein Lactic Acid 1.7 Level Test 09/27/18 05:29 White Blood 6.3 Count Red Blood Count 1.78 L Hemoglobin 6.6 *L Hematocrit 19.4 L Mean Corpuscular 109.0 H Volume Mean Corpuscular 37.1 H Hemoglobin Mean Corpuscular 34.0 Hemoglobin Jaclyn nt Red Cell 18.6 H Distribution Width Platelet Count 48 L Mean Platelet 9.8 Volume Immature 0.600 H Granulocytes % Neutrophils % 50.7 Segmented 57 Neutrophils % (Manual) Band Neutrophils 1 % (Manual) Lymphocytes % 26.2 Lymphocytes % 24 (Manual) Monocytes % 17.2 H Monocytes % 12 H (Manual) Eosinophils % 5.0 Eosinophils % 3 (Manual) Basophils % 0.3 Basophils % 2 (Manual) Myelocytes % 1 H (Manual) Nucleated Red 0.0 Blood Cells % Immature 0.040 H Granulocytes # Neutrophils # 3.2 Neutrophils # 3.6 (Manual) Band Neutrophils 0.0 # Lymphocytes 1.5 (Manual) Lymphocytes # 1.7 Monocytes # 1.1 H Monocytes # 0.7 (Manual) Eosinophils # 0.3 Basophils # 0.0 Basophils # 0.1 H (Manual) Myelocytes # 0.0 Nucleated Red 0.0 Blood Cells # Pathologist YES Review (Hematolo gy) Platelet SIG DECREASED Estimate Polychromasia 1+ Poikilocytosis 1+ Anisocytosis 1+ Macrocytosis 1+ Spherocytes 1+ Sodium Level 130 L Potassium Level 4.2 Chloride Level 100 Carbon Dioxide 24 Level Anion Gap 6 Blood Urea 6 L Nitrogen Creatinine 0.54 Est Glomerular > 60 Filtrat Rate mL/min Glucose Level 98 Calcium Level 7.8 L Magnesium Level 2.0 Total Bilirubin 6.7 H Direct Bilirubin 1.00 H Indirect 5.7 H Bilirubin Aspartate Amino 39 Transf (AST/SGOT ) Alanine 37 Aminotransferase (ALT/SGPT) Alkaline 138 H Phosphatase Total Protein 5.1 L Albumin 2.0 L Globulin 3.10 Albumin/Globulin 0.64 Ratio Subjective 24 Hr Interval Summary Gastrointestinal: pain Exam/Review of Systems Exam Vitals Vital Signs Date Temp Pulse Resp B/P (MAP) Pulse Ox O2 O2 Flow FiO2 Time Delivery Rate 09/27/18 99.2 96 19 90/54 (66) 96 15:14 09/26/18 Room Air 20:50 09/26/18 1.0 20:23 Intake and Output 09/26/18 09/26/18 09/27/18 1515:00 23:00 07:00 IntakeIntake Total 580 ml OutputOutput Total 900 ml BalanceBalance -320 ml Constitutional: alert, oriented Respiratory: clear to auscultation Cardiovascular: regular rate and rhythm Gastrointestinal: soft, distended Musculoskeletal: nl extremities to inspection Results Results 24hrs Laboratory Tests Test 09/26/18 18:58 09/26/18 19:01 09/26/18 19:15 09/26/18 22:12 POC Venous 1.8 Lactate White Blood 7.6 # Count Red Blood Count 2.02 #L Hemoglobin 7.4 L Hematocrit 21.5 #L Mean Corpuscular 106.4 H Volume Mean Corpuscular 36.6 H Hemoglobin Mean Corpuscular 34.4 Hemoglobin Jaclyn nt Red Cell 18.6 H Distribution Width Platelet Count 49 L Mean Platelet 10.1 Volume Immature 0.800 H Granulocytes % Neutrophils % Segmented 74 Neutrophils % (Manual) Lymphocytes % Lymphocytes % 13 L (Manual) Monocytes % Monocytes % 10 (Manual) Eosinophils % Eosinophils % 2 (Manual) Basophils % Basophils % 1 (Manual) Nucleated Red 0.0 Blood Cells % Immature 0.060 H Granulocytes # Neutrophils # Lymphocytes 0.9 (Manual) Lymphocytes # Monocytes # Monocytes # 0.7 (Manual) Eosinophils # Basophils # Basophils # 0.0 (Manual) Nucleated Red Blood Cells # Platelet DECREASED Estimate Polychromasia 1+ Poikilocytosis 3+ Anisocytosis 1+ Macrocytosis 1+ Tear Drop Cells 1+ Ovalocytes 1+ Acanthocytes 2+ Prothrombin Time 33.4 H Prothrombin Time 2.6 Ratio INR 3.28 International Normalized Ratio Activated 46.8 H Partial Thrombop last Time Sodium Level 124 L Potassium Level 4.5 Chloride Level 96 L Carbon Dioxide 23 Level Anion Gap 5 Blood Urea 6 L Nitrogen Creatinine 0.46 Est Glomerular > 60 Filtrat Rate mL/min Glucose Level 107 Calcium Level 7.8 L Total Bilirubin 7.1 H Direct Bilirubin 0.90 H Indirect 6.2 H Bilirubin Aspartate Amino 41 Transf (AST/SGOT ) Alanine 35 Aminotransferase (ALT/SGPT) Alkaline 172 H Phosphatase Troponin I < 0.012 Total Protein 5.8 L Albumin 2.2 L Globulin 3.60 H Albumin/Globulin 0.61 Ratio Urine Color KALEB Urine Clarity SLIGHTLY CLOUDY A Urine pH 5.0 Urine Specific 1.016 [place] Urine Ketones NEGATIVE Urine Nitrite NEGATIVE Urine Bilirubin 1+ H Urine 2+ H Urobilinogen Urine Leukocyte NEGATIVE Esterase Urine 1 Microscopic RBC Urine 0 Microscopic WBC Urine Squamous MODERATE Epithelial Cells Urine Bacteria FEW A Urine Mucus FEW A Urine Hemoglobin NEGATIVE Urine Glucose NEGATIVE Urine Total NEGATIVE Protein Lactic Acid 1.7 Level Test 09/27/18 05:29 White Blood 6.3 Count Red Blood Count 1.78 L Hemoglobin 6.6 *L Hematocrit 19.4 L Mean Corpuscular 109.0 H Volume Mean Corpuscular 37.1 H Hemoglobin Mean Corpuscular 34.0 Hemoglobin Jaclyn nt Red Cell 18.6 H Distribution Width Platelet Count 48 L Mean Platelet 9.8 Volume Immature 0.600 H Granulocytes % Neutrophils % 50.7 Segmented 57 Neutrophils % (Manual) Band Neutrophils 1 % (Manual) Lymphocytes % 26.2 Lymphocytes % 24 (Manual) Monocytes % 17.2 H Monocytes % 12 H (Manual) Eosinophils % 5.0 Eosinophils % 3 (Manual) Basophils % 0.3 Basophils % 2 (Manual) Myelocytes % 1 H (Manual) Nucleated Red 0.0 Blood Cells % Immature 0.040 H Granulocytes # Neutrophils # 3.2 Neutrophils # 3.6 (Manual) Band Neutrophils 0.0 # Lymphocytes 1.5 (Manual) Lymphocytes # 1.7 Monocytes # 1.1 H Monocytes # 0.7 (Manual) Eosinophils # 0.3 Basophils # 0.0 Basophils # 0.1 H (Manual) Myelocytes # 0.0 Nucleated Red 0.0 Blood Cells # Pathologist YES Review (Hematolo gy) Platelet SIG DECREASED Estimate Polychromasia 1+ Poikilocytosis 1+ Anisocytosis 1+ Macrocytosis 1+ Spherocytes 1+ Sodium Level 130 L Potassium Level 4.2 Chloride Level 100 Carbon Dioxide 24 Level Anion Gap 6 Blood Urea 6 L Nitrogen Creatinine 0.54 Est Glomerular > 60 Filtrat Rate mL/min Glucose Level 98 Calcium Level 7.8 L Magnesium Level 2.0 Total Bilirubin 6.7 H Direct Bilirubin 1.00 H Indirect 5.7 H Bilirubin Aspartate Amino 39 Transf (AST/SGOT ) Alanine 37 Aminotransferase (ALT/SGPT) Alkaline 138 H Phosphatase Total Protein 5.1 L Albumin 2.0 L Globulin 3.10 Albumin/Globulin 0.64 Ratio Medications Medication Current Medications IV Flush (NS 3 ml) 3 ml PER PROTOCOL IV ; Start 09/26/18 at 22:00 Ondansetron HCl (Zofran Inj) 4 mg Q6H PRN IV NAUSEA/VOMITING; Start 09/26/18 at 22:00 Acetaminophen (Tylenol Tab) 650 mg Q6H PRN PO .PAIN 1-3 OR TEMP; Start 09/26/18 at 22:00 Acetaminophen/ Hydrocodone Bitart ([place] (5/325)) 1 tab Q6H PRN PO .PAIN 4-6 Last administered on 09/27/18at 00:02; Admin Dose 1 TAB; Start 09/26/18 at 22:00 Albuterol/ Ipratropium (Duoneb) 3 ml Q2H RESP THERAPY PRN HHN SHORTNESS OF BREATH; Start 09/26/18 at 22:00 Albuterol (Ventolin Hfa) 2 puff Q4 INH Last administered on 09/27/18at 09:00; Admin Dose 2 PUFF; Start 09/27/18 at 01:00 Furosemide (Lasix) 20 mg DAILY PO Last administered on 09/27/18at 09:20; Admin Dose 20 MG; Start 09/27/18 at 09:00 Lactulose (Enulose) 10 gm DAILY PO Last administered on 09/27/18at 09:19; Admin Dose 10 GM; Start 09/27/18 at 09:00 Lorazepam (Ativan) 0.5 mg DAILY PO Last administered on 09/27/18 09:20; Admin Dose 0.5 MG; Start 09/27/18 at 09:00 Lubiprostone (Amitiza) 24 mcg BID PO Last administered on 09/27/18 09:20; Admin Dose 24 MCG; Start 09/27/18 at 09:00 Midodrine (Proamatine) 5 mg DAILY PO Last administered on 09/27/18 09:20; Admin Dose 5 MG; Start 09/27/18 at 09:00 Potassium Chloride (Klor-Con 20) 20 meq DAILY PO Last administered on 09/27/18 09:20; Admin Dose 20 MEQ; Start 09/27/18 at 09:00 Spironolactone (Aldactone) 100 mg BID PO Last administered on 09/27/18 09:20; Admin Dose 100 MG; Start 09/27/18 at 09:00 Zolpidem Tartrate (Ambien) 5 mg QHS PO ; Start 09/27/18 at 21:00 Albumin Human 100 ml @ 100 mls/hr Q8H IV Last administered on 09/27/18 13:35; Admin Dose 100 MLS/HR; Start 09/27/18 at 05:30; Stop 09/27/18 at 22:29 Miconazole Nitrate (Miconazole 2% Cr) 1 applic BID TOP Last administered on 09/27/18 14:18; Admin Dose 1 APPLIC; Start 09/27/18 at 13:00 Hydromorphone HCl (Dilaudid) 0.5 mg Q3H PRN IV SEVERE PAIN LEVEL 7-10 Last administered on 09/27/18 11:53; Admin Dose 0.5 MG; Start 09/27/18 at 11:30 ANA SPICER Sep 27, 2018 15:19
[2018-09-27] MEDS ORDERED: LIDOCAINE 1% (MPF) 5 ML VIAL ONE (16:54)
--- NOTE | 2018-09-27 17:14 | CONS ---
Assessment/Plan Assessment/Plan Assessment/Plan (Daily) Hx of left foot ulceration s/p debridements and application of skin allograft - resolved Hx of alcohol abuse Peripheral neuropathy Liver cirrhosis Plan Patient was seen and evaluated and discussed findings of the healed left foot ulceration site. No dressings required. Patient may bear weight as tolerated provided that she is in protective shoe gear. Educated patient on close monitoring of feet and lower extremities due to her neuropathy. Stable from podiatry standpoint. Consultation Date/Type/Reason Admit Date/Time Sep 26, 2018 at 20:00 Date/Time of Note DATE: 09/27/18 TIME: 17:14 Hx of Present Illness 48-year-old female with history of decompensated alcoholic liver cirrhosis, SBP, Klebsiella bacteremia, left foot wound status post debridement with wound VAC and subsequent skin graft application, C. difficile colitis, left breast implant rupture, PTSD, bipolar. Patient was brought from SNF for abdominal distention. Patient presents to the floor for follow up on left foot ulceration site. Patient denies complaints to the previous foot ulceration sites. Denies new findings of ulcerations. ROS negative except for HPI Past Medical History decompensated alcoholic liver cirrhosis, SBP, Klebsiella bacteremia, left foot wound status post debridement with wound VAC and subsequent skin graft application, C. difficile colitis, left breast implant rupture, PTSD, bipolar Home Meds Active Scripts Lubiprostone* (Amitiza*) 24 Mcg Capsule, 24 MCG PO BID for 30 Days, #60 CAP Prov:LOUIE RUIZ MD 08/23/18 Lactulose* (Lactulose*) 20 Gm/30 Ml Solution, 10 GM PO DAILY for 30 Days, #1 BOT TLE Prov:LOUIE RUIZ MD 08/23/18 Furosemide (Lasix) 20 Mg Tab, 20 MG PO DAILY for 30 Days, #30 TAB 6 Refills Prov:LOUIE RUIZ MD 08/23/18 Ondansetron (Ondansetron Odt) 4 Mg Tab.rapdis, 4 MG PO Q6H PRN for NAUSEA AND/OR VOMITING, #10 TAB Prov:ALEXANDRIA QUIROGA MD 06/14/18 Reported Medications Hydromorphone Hcl (Dilaudid) 4 Mg Tab, 4 MG PO DAILY 09/26/18 Lorazepam* (Lorazepam*) 0.5 Mg Tablet, 0.5 MG PO DAILY for 30 Days 09/26/18 Zolpidem Tartrate* (Zolpidem Tartrate*) 5 Mg Tablet, 5 MG PO QHS 09/26/18 Midodrine* (Midodrine*) 5 Mg Tablet, 5 MG PO DAILY 09/26/18 Potassium Chloride* (K-Dur*) 20 Meq Tab.prt.sr, 20 MEQ PO DAILY for 30 Days 09/26/18 Albuterol Sulfate* (Ventolin HFA*) 18 Gm Hfa.aer.ad, 2 PUFF INHALATION Q4H, #1 I NHALER 06/28/18 Spironolactone* (Aldactone*) 100 Mg Tablet, 100 MG PO BID, #60 TAB 05/15/18 Discontinued Scripts Hydromorphone Hcl* (Dilaudid*) 4 Mg Tablet, 4 MG PO Q3H PRN for SEVERE PAIN LEVEL 7-10 for 10 Days, #30 TAB Prov:LOUIE RUIZ MD 08/24/18 Trazodone Hcl* (Trazodone Hcl*) 100 Mg Tablet, 100 MG PO HS PRN for insomnia for 30 Days, #30 TAB Prov:LOUIE RUIZ MD 08/23/18 Rifaximin* (Xifaxan*) 200 Mg Tab, 200 MG PO TID for 30 Days, #90 TAB 6 Refills Prov:LOUIE RUIZ MD 08/23/18 Midodrine* (Midodrine*) 10 Mg Tablet, 10 MG PO TID for 30 Days, #90 TAB Prov:LOUIE RUIZ MD 08/23/18 Hydrocodone/Acetaminophen (Willard 5-325 Tablet) 1 Each Tablet, 1 TAB PO Q6H PRN f or PAIN, #7 TAB Prov:RADHA MORALES MD 06/28/18 Medications Current Medications IV Flush (NS 3 ml) 3 ml PER PROTOCOL IV ; Start 09/26/18 at 22:00 Ondansetron HCl (Zofran Inj) 4 mg Q6H PRN IV NAUSEA/VOMITING; Start 09/26/18 at 22:00 Acetaminophen (Tylenol Tab) 650 mg Q6H PRN PO .PAIN 1-3 OR TEMP; Start 09/26/18 at 22:00 Acetaminophen/ Hydrocodone Bitart ([place] (5/325)) 1 tab Q6H PRN PO .PAIN 4-6 Last administered on 09/27/18 00:02; Admin Dose 1 TAB; Start 09/26/18 at 22:00 Albuterol/ Ipratropium (Duoneb) 3 ml Q2H RESP THERAPY PRN HHN SHORTNESS OF BREATH; Start 09/26/18 at 22:00 Albuterol (Ventolin Hfa) 2 puff Q4 INH Last administered on 09/27/18 17:09; Admin Dose 2 PUFF; Start 09/27/18 at 01:00 Furosemide (Lasix) 20 mg DAILY PO Last administered on 09/27/18 09:20; Admin Dose 20 MG; Start 09/27/18 at 09:00 Lactulose (Enulose) 10 gm DAILY PO Last administered on 09/27/18 09:19; Admin Dose 10 GM; Start 09/27/18 at 09:00 Lorazepam (Ativan) 0.5 mg DAILY PO Last administered on 09/27/18 09:20; Admin Dose 0.5 MG; Start 09/27/18 at 09:00 Lubiprostone (Amitiza) 24 mcg BID PO Last administered on 09/27/18 09:20; Admin Dose 24 MCG; Start 09/27/18 at 09:00 Midodrine (Proamatine) 5 mg DAILY PO Last administered on 09/27/18 09:20; Admin Dose 5 MG; Start 09/27/18 at 09:00 Potassium Chloride (Klor-Con 20) 20 meq DAILY PO Last administered on 09/27/18 09:20; Admin Dose 20 MEQ; Start 09/27/18 at 09:00 Spironolactone (Aldactone) 100 mg BID PO Last administered on 09/27/18 09:20; Admin Dose 100 MG; Start 09/27/18 at 09:00 Zolpidem Tartrate (Ambien) 5 mg QHS PO ; Start 09/27/18 at 21:00 Albumin Human 100 ml @ 100 mls/hr Q8H IV Last administered on 09/27/18 13:35; Admin Dose 100 MLS/HR; Start 09/27/18 at 05:30; Stop 09/27/18 at 22:29 Miconazole Nitrate (Miconazole 2% Cr) 1 applic BID TOP Last administered on 09/27/18 14:18; Admin Dose 1 APPLIC; Start 09/27/18 at 13:00 Hydromorphone HCl (Dilaudid) 0.5 mg Q3H PRN IV SEVERE PAIN LEVEL 7-10 Last administered on 09/27/18at 17:09; Admin Dose 0.5 MG; Start 09/27/18 at 11:30 Allergies: Coded Allergies: No Known Allergy (Unverified , 09/26/18) Past Surgical History left foot wound debridement and application of split thickness skin graft. Past Surgical Hx: cholecystectomy, endoscopy Family History Significant Family History: no pertinent family hx Social History Alcohol Use: other (previous history of alcohol abuse) Smoking Status: Never smoker Exam/Review of Systems Exam Vitals Vital Signs Date Temp Pulse Resp B/P (MAP) Pulse Ox O2 O2 Flow FiO2 Time Delivery Rate 09/27/18 99.2 96 19 90/54 (66) 96 15:14 09/26/18 Room Air 20:50 09/26/18 1.0 20:23 Intake and Output 09/26/18 09/26/18 09/27/18 1515:00 23:00 07:00 IntakeIntake Total 580 ml OutputOutput Total 900 ml BalanceBalance -320 ml Exam Palpable pedal pulses Absent protective sensations Epithelialized left foot dorsal ulceration site Proximal left lower extremity skin donor site epithelialized no pain on palpation to previous ulcer site Muscle strength 5/5 in all compartments of the foot. Results Result Diagram: 09/27/18 0529 09/27/18 0529 Results 24hrs Laboratory Tests Test 09/26/18 18:58 09/26/18 19:01 09/26/18 19:15 09/26/18 22:12 POC Venous 1.8 Lactate White Blood 7.6 # Count Red Blood Count 2.02 #L Hemoglobin 7.4 L Hematocrit 21.5 #L Mean Corpuscular 106.4 H Volume Mean Corpuscular 36.6 H Hemoglobin Mean Corpuscular 34.4 Hemoglobin Jaclyn nt Red Cell 18.6 H Distribution Width Platelet Count 49 L Mean Platelet 10.1 Volume Immature 0.800 H Granulocytes % Neutrophils % Segmented 74 Neutrophils % (Manual) Lymphocytes % Lymphocytes % 13 L (Manual) Monocytes % Monocytes % 10 (Manual) Eosinophils % Eosinophils % 2 (Manual) Basophils % Basophils % 1 (Manual) Nucleated Red 0.0 Blood Cells % Immature 0.060 H Granulocytes # Neutrophils # Lymphocytes 0.9 (Manual) Lymphocytes # Monocytes # Monocytes # 0.7 (Manual) Eosinophils # Basophils # Basophils # 0.0 (Manual) Nucleated Red Blood Cells # Platelet DECREASED Estimate Polychromasia 1+ Poikilocytosis 3+ Anisocytosis 1+ Macrocytosis 1+ Tear Drop Cells 1+ Ovalocytes 1+ Acanthocytes 2+ Prothrombin Time 33.4 H Prothrombin Time 2.6 Ratio INR 3.28 International Normalized Ratio Activated 46.8 H Partial Thrombop last Time Sodium Level 124 L Potassium Level 4.5 Chloride Level 96 L Carbon Dioxide 23 Level Anion Gap 5 Blood Urea 6 L Nitrogen Creatinine 0.46 Est Glomerular > 60 Filtrat Rate mL/min Glucose Level 107 Calcium Level 7.8 L Total Bilirubin 7.1 H Direct Bilirubin 0.90 H Indirect 6.2 H Bilirubin Aspartate Amino 41 Transf (AST/SGOT ) Alanine 35 Aminotransferase (ALT/SGPT) Alkaline 172 H Phosphatase Troponin I < 0.012 Total Protein 5.8 L Albumin 2.2 L Globulin 3.60 H Albumin/Globulin 0.61 Ratio Urine Color KALEB Urine Clarity SLIGHTLY CLOUDY A Urine pH 5.0 Urine Specific 1.016 [place] Urine Ketones NEGATIVE Urine Nitrite NEGATIVE Urine Bilirubin 1+ H Urine 2+ H Urobilinogen Urine Leukocyte NEGATIVE Esterase Urine 1 Microscopic RBC Urine 0 Microscopic WBC Urine Squamous MODERATE Epithelial Cells Urine Bacteria FEW A Urine Mucus FEW A Urine Hemoglobin NEGATIVE Urine Glucose NEGATIVE Urine Total NEGATIVE Protein Lactic Acid 1.7 Level Test 09/27/18 05:29 White Blood 6.3 Count Red Blood Count 1.78 L Hemoglobin 6.6 *L Hematocrit 19.4 L Mean Corpuscular 109.0 H Volume Mean Corpuscular 37.1 H Hemoglobin Mean Corpuscular 34.0 Hemoglobin Jaclyn nt Red Cell 18.6 H Distribution Width Platelet Count 48 L Mean Platelet 9.8 Volume Immature 0.600 H Granulocytes % Neutrophils % 50.7 Segmented 57 Neutrophils % (Manual) Band Neutrophils 1 % (Manual) Lymphocytes % 26.2 Lymphocytes % 24 (Manual) Monocytes % 17.2 H Monocytes % 12 H (Manual) Eosinophils % 5.0 Eosinophils % 3 (Manual) Basophils % 0.3 Basophils % 2 (Manual) Myelocytes % 1 H (Manual) Nucleated Red 0.0 Blood Cells % Immature 0.040 H Granulocytes # Neutrophils # 3.2 Neutrophils # 3.6 (Manual) Band Neutrophils 0.0 # Lymphocytes 1.5 (Manual) Lymphocytes # 1.7 Monocytes # 1.1 H Monocytes # 0.7 (Manual) Eosinophils # 0.3 Basophils # 0.0 Basophils # 0.1 H (Manual) Myelocytes # 0.0 Nucleated Red 0.0 Blood Cells # Pathologist YES Review (Hematolo gy) Platelet SIG DECREASED Estimate Polychromasia 1+ Poikilocytosis 1+ Anisocytosis 1+ Macrocytosis 1+ Spherocytes 1+ Sodium Level 130 L Potassium Level 4.2 Chloride Level 100 Carbon Dioxide 24 Level Anion Gap 6 Blood Urea 6 L Nitrogen Creatinine 0.54 Est Glomerular > 60 Filtrat Rate mL/min Glucose Level 98 Calcium Level 7.8 L Magnesium Level 2.0 Total Bilirubin 6.7 H Direct Bilirubin 1.00 H Indirect 5.7 H Bilirubin Aspartate Amino 39 Transf (AST/SGOT ) Alanine 37 Aminotransferase (ALT/SGPT) Alkaline 138 H Phosphatase Total Protein 5.1 L Albumin 2.0 L Globulin 3.10 Albumin/Globulin 0.64 Ratio Medications Medication Current Medications IV Flush (NS 3 ml) 3 ml PER PROTOCOL IV ; Start 09/26/18 at 22:00 Ondansetron HCl (Zofran Inj) 4 mg Q6H PRN IV NAUSEA/VOMITING; Start 09/26/18 at 22:00 Acetaminophen (Tylenol Tab) 650 mg Q6H PRN PO .PAIN 1-3 OR TEMP; Start 09/26/18 at 22:00 Acetaminophen/ Hydrocodone Bitart ([place] (5/325)) 1 tab Q6H PRN PO .PAIN 4-6 Last administered on 09/27/18at 00:02; Admin Dose 1 TAB; Start 09/26/18 at 22:00 Albuterol/ Ipratropium (Duoneb) 3 ml Q2H RESP THERAPY PRN HHN SHORTNESS OF BREATH; Start 09/26/18 at 22:00 Albuterol (Ventolin Hfa) 2 puff Q4 INH Last administered on 09/27/18at 17:09; Admin Dose 2 PUFF; Start 09/27/18 at 01:00 Furosemide (Lasix) 20 mg DAILY PO Last administered on 09/27/18 09:20; Admin Dose 20 MG; Start 09/27/18 at 09:00 Lactulose (Enulose) 10 gm DAILY PO Last administered on 09/27/18at 09:19; Admin Dose 10 GM; Start 09/27/18 at 09:00 Lorazepam (Ativan) 0.5 mg DAILY PO Last administered on 09/27/18 09:20; Admin Dose 0.5 MG; Start 09/27/18 at 09:00 Lubiprostone (Amitiza) 24 mcg BID PO Last administered on 09/27/18 09:20; Admin Dose 24 MCG; Start 09/27/18 at 09:00 Midodrine (Proamatine) 5 mg DAILY PO Last administered on 09/27/18 09:20; Admin Dose 5 MG; Start 09/27/18 at 09:00 Potassium Chloride (Klor-Con 20) 20 meq DAILY PO Last administered on 09/27/18 09:20; Admin Dose 20 MEQ; Start 09/27/18 at 09:00 Spironolactone (Aldactone) 100 mg BID PO Last administered on 09/27/18 09:20; Admin Dose 100 MG; Start 09/27/18 at 09:00 Zolpidem Tartrate (Ambien) 5 mg QHS PO ; Start 09/27/18 at 21:00 Albumin Human 100 ml @ 100 mls/hr Q8H IV Last administered on 09/27/18 13:35; Admin Dose 100 MLS/HR; Start 09/27/18 at 05:30; Stop 09/27/18 at 22:29 Miconazole Nitrate (Miconazole 2% Cr) 1 applic BID TOP Last administered on 09/27/18 14:18; Admin Dose 1 APPLIC; Start 09/27/18 at 13:00 Hydromorphone HCl (Dilaudid) 0.5 mg Q3H PRN IV SEVERE PAIN LEVEL 7-10 Last administered on 09/27/18 17:09; Admin Dose 0.5 MG; Start 09/27/18 at 11:30 JEANINE SAWYER DPM Sep 27, 2018 17:14
[2018-09-27] MEDS ORDERED: ZOLPIDEM 5 MG TAB PO SCH (21:00)
[2018-09-28] VITALS (9 sets, daily range): BP systolic 91–108; BP diastolic 45–54; PULSE 89–110; RESP 18
[2018-09-28] MEDS: ALBUTEROL HFA 8 GM INHALER INH SCH ×4 (01:00→13:22)
[2018-09-28] MEDS: HYDROmorphONE 0.5 MG/0.5 ML SYG IV PRN (06:40)
[2018-09-28] MEDS: LACTULOSE 30ML CUP PO SCH (09:00)
[2018-09-28] MEDS: LORAZEPAM 0.5 MG TAB PO SCH (09:00)
[2018-09-28] MEDS: MIDODRINE 5 MG TAB PO SCH (09:01)
[2018-09-28] MEDS: SPIRONOLACTONE 50 MG TAB PO SCH (09:01)
[2018-09-28] MEDS: POTASSIUM CHLORIDE (SR) 20 MEQ TAB PO SCH (09:01)
[2018-09-28] MEDS: FUROSEMIDE 20 MG TAB PO SCH (09:02)
[2018-09-28] MEDS: MICONAZOLE 2% 30 GM CR TOP SCH (09:05)
[2018-09-28] MEDS: LUBIPROSTONE 24 MCG CAP PO SCH (13:22)
--- NOTE | 2018-09-28 15:16 | DS ---
Date/Time of Note Date/Time of Note DATE: 09/28/18 TIME: 15:13 Discharge Summary Admission/Discharge Info Admit Date/Time Sep 26, 2018 at 20:00 Discharge Date/Time September 28, 2018 Discharge Diagnosis 1. Decompensated alcoholic liver cirrhosis: Last paracentesis 6 weeks ago with removal of 3.6 L -Status post paracentesis with removal of 4.2 L -Continue Lasix and Aldactone 2. Hypervolemic hyponatremia: Secondary to above 3. 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 History of Klebsiella bacteremia: During recent hospitalization 5. Left foot wound: Status post recent debridement with a wound VAC -Podiatry consult appreciated, no intervention indicated at this time 6. History of C. difficile colitis -Patient reported loose stool, but she is on a lactulose -No evidence of acute C. difficile infection 7. History of left breast implant fracture -No acute issues Patient Condition: Good Hospital Course Patient is a 48-year-old female with a history of alcohol cirrhosis with recurrent ascites, Bacteremia, Left Foot Wound, Debility. Patient Resides at a Senior Living Facility and Was Transferred for Refractory Ascites. Patient had a paracentesis with 4.2 L removed, patient was found to be anemic and was transfused 2 units of blood, patient has no evidence of acute blood loss anemia secondary to chronic disease and liver disease. Patient stable for DC back to nursing facility with plans to ultimately return home in the coming days. On day of discharge patient's vitals, labs and physical exam are stable. Home Meds Active Scripts Lubiprostone* (Amitiza*) 24 Mcg Capsule, 24 MCG PO BID for 30 Days, #60 CAP Prov:LOUIE RUIZ MD 08/23/18 Lactulose* (Lactulose*) 20 Gm/30 Ml Solution, 10 GM PO DAILY for 30 Days, #1 BOTTLE Prov:LOUIE RUIZ MD 08/23/18 Furosemide (Lasix) 20 Mg Tab, 20 MG PO DAILY for 30 Days, #30 TAB 6 Refills Prov:LOUIE RUIZ MD 08/23/18 Ondansetron (Ondansetron Odt) 4 Mg Tab.rapdis, 4 MG PO Q6H PRN for NAUSEA AND/OR VOMITING, #10 TAB Prov:ALEXANDRIA QUIROGA MD 06/14/18 Reported Medications Hydromorphone Hcl (Dilaudid) 4 Mg Tab, 4 MG PO DAILY 09/26/18 Lorazepam* (Lorazepam*) 0.5 Mg Tablet, 0.5 MG PO DAILY for 30 Days 09/26/18 Zolpidem Tartrate* (Zolpidem Tartrate*) 5 Mg Tablet, 5 MG PO QHS 09/26/18 Midodrine* (Midodrine*) 5 Mg Tablet, 5 MG PO DAILY 09/26/18 Potassium Chloride* (K-Dur*) 20 Meq Tab.prt.sr, 20 MEQ PO DAILY for 30 Days 09/26/18 Albuterol Sulfate* (Ventolin HFA*) 18 Gm Hfa.aer.ad, 2 PUFF INHALATION Q4H, #1 INHALER 06/28/18 Spironolactone* (Aldactone*) 100 Mg Tablet, 100 MG PO BID, #60 TAB 05/15/18 Discontinued Scripts Hydromorphone Hcl* (Dilaudid*) 4 Mg Tablet, 4 MG PO Q3H PRN for SEVERE PAIN LEVEL 7-10 for 10 Days, #30 TAB Prov:LOUIE RUIZ MD 08/24/18 Trazodone Hcl* (Trazodone Hcl*) 100 Mg Tablet, 100 MG PO HS PRN for insomnia for 30 Days, #30 TAB Prov:LOUIE RUIZ MD 08/23/18 Rifaximin* (Xifaxan*) 200 Mg Tab, 200 MG PO TID for 30 Days, #90 TAB 6 Refills Prov:LOUIE RUIZ MD 08/23/18 Midodrine* (Midodrine*) 10 Mg Tablet, 10 MG PO TID for 30 Days, #90 TAB Prov:LOUIE RUIZ MD 08/23/18 Hydrocodone/Acetaminophen (Boykin 5-325 Tablet) 1 Each Tablet, 1 TAB PO Q6H PRN for PAIN, #7 TAB Prov:RADHA MORALES MD 06/28/18 Follow-up Plan Follow-up with physicians at the long term facility Primary Care Provider [facility] Time spent on discharge: > 30 minutes ANA SPICER Sep 28, 2018 15:16
== END 2018-09-28 16:02 | DRG 432 ==
LOC: E/R 17:43 → 6WM 20:00
PROVIDERS: ADMIT Internal Medicine; ATTEND Internal Medicine
PROC: 0W9G3ZZ Drainage of Peritoneal Cavity, Percutaneous Approach (ICD-10-PCS; principal; 2018-09-27)
PROC: 30233N1 Transfusion of Nonautologous Red Blood Cells into Peripheral Vein, Percutaneous Approach (ICD-10-PCS; 2018-09-27)
DX: K70.31 Alcoholic cirrhosis of liver with ascites (principal); E43 Unspecified severe protein-calorie malnutrition; E87.1 Hypo-osmolality and hyponatremia; R18.8 Other ascites; E87.70 Fluid overload, unspecified; G62.89 Other specified polyneuropathies; D63.8 Anemia in other chronic diseases classified elsewhere; E78.5 Hyperlipidemia, unspecified; F43.10 Post-traumatic stress disorder, unspecified; F31.9 Bipolar disorder, unspecified; F42.9 Obsessive-compulsive disorder, unspecified; Z68.28 Body mass index [BMI] 28.0-28.9, adult
CPT/HCPCS: 36415; 36430; 71045; 80048; 80053; 81001; 81003; 83605; 83735; 84484; 85025; 85610; 85730; 86850; 86900; 86901; 86920; 87086; 93005; J0696; J1170; J1940; J2270; J2405; J3010; J7030; J7040; P9016; P9047

== ENCOUNTER 2018-10-05 18:45 | Inpatient (IN) | payer OTHER ==
[~2018-10-05] VITALS: Ht 172.7 cm; Wt 72.0 kg
[~2018-10-05 18:45] MED LIST changes: -HYDR-4011 PO; +HYDR4TAB PO; -HYDR4TAB51 PO; +LORA0.5T PO; -MIDO10TA PO; +MIDO5TAB PO; +POTA20TA15 PO; -RIFA200T5 PO; -TRA100 PO; +ZOLP5TAB7 PO
[2018-10-05 18:51] VITALS: Ht 172.7 cm; Wt 72.0 kg
[2018-10-05] MEDS ORDERED: CEFEPIME 2GM/50 ML (PMX) 50 ML IVPB STA (19:07)
[2018-10-05] MEDS ORDERED: SOD CHLORIDE 0.9% 1,000 ML IV STA (19:48)
[2018-10-05] MEDS ORDERED: LIDOCAINE 2%/EPI (MDV) 20ML INJ INJ ONE (21:00)
--- NOTE | 2018-10-05 22:33 | ERD ---
ER Documentation Chief Complaint Chief Complaint bib pa for abd. pain, fever, and tachycardia HPI 48-year-old female with a history of end-stage liver disease due to alcoholic cirrhosis brought in by ambulance from her custodial for abdominal pain and fever. Patient states that her last paracentesis was 1 week ago. She is comp laining of diffuse abdominal pain unable to give me more detail. She denies any vomiting but has dried blood around her lips. Otherwise she seems somewhat confused and not answering questions appropriately. ROS Limited due to altered mental status Medications Home Meds Active Scripts Lubiprostone* (Amitiza*) 24 Mcg Capsule, 24 MCG PO BID for 30 Days, #60 CAP Prov:LOUIE RUIZ MD 08/23/18 Lactulose* (Lactulose*) 20 Gm/30 Ml Solution, 10 GM PO DAILY for 30 Days, #1 BOTTLE Prov:LOUIE RUIZ MD 08/23/18 Furosemide (Lasix) 20 Mg Tab, 20 MG PO DAILY for 30 Days, #30 TAB 6 Refills Prov:LOUIE RUIZ MD 08/23/18 Ondansetron (Ondansetron Odt) 4 Mg Tab.rapdis, 4 MG PO Q6H PRN for NAUSEA AND/OR VOMITING, #10 TAB Prov:ALEXANDRIA QUIROGA MD 06/14/18 Reported Medications Furosemide* (Furosemide*) 20 Mg Tablet, 20 MG PO DAILY for 30 Days 10/06/18 Hydromorphone Hcl (Dilaudid) 4 Mg Tab, 4 MG PO DAILY 09/26/18 Lorazepam* (Lorazepam*) 0.5 Mg Tablet, 0.5 MG PO DAILY for 30 Days 09/26/18 Zolpidem Tartrate* (Zolpidem Tartrate*) 5 Mg Tablet, 5 MG PO QHS 09/26/18 Midodrine* (Midodrine*) 5 Mg Tablet, 5 MG PO DAILY 09/26/18 Potassium Chloride* (K-Dur*) 20 Meq Tab.prt.sr, 20 MEQ PO DAILY for 30 Days 09/26/18 Albuterol Sulfate* (Ventolin HFA*) 18 Gm Hfa.aer.ad, 2 PUFF INHALATION Q4H, #1 INHALER 06/28/18 Spironolactone* (Aldactone*) 100 Mg Tablet, 100 MG PO BID, #60 TAB 05/15/18 Allergies Allergies: Coded Allergies: No Known Allergy (Unverified , 10/06/18) PMhx/Soc History of Surgery: Yes (tonsillectomy, cholecysectomy, c sectioin, hernia) Anesthesia Reaction: No Hx 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 Disorder: No Hx Respiratory Disorders: No Hx Cardiac Disorders: No Hx Psychiatric Problems: Yes (bi-polar, ocd, ptsd) Hx Miscellaneous Medical Probl: Yes (Cirrhosis) Hx Alcohol Use: Yes Hx Substance Use: No Hx Tobacco Use: No Smoking Status: Former smoker FmHx Unable to obtain Physical Exam Vitals Vital Signs Date Temp Pulse Resp B/P (MAP) Pulse Ox O2 O2 Flow FiO2 Time Delivery Rate 10/05/18 138 89/52 (64) 100 Nasal 4.0 21:30 Cannula 10/05/18 133 20 90/45 (60) 98 Room Air 4.0 20:20 Nasal Cannula 10/05/18 Nasal 2 19:13 Cannula 10/05/18 100.4 146 14 85/50 (62) 93 Room Air 19:13 10/05/18 100.8 143 23 94/54 (67) 89 18:51 Physical Exam Const: Very ill-appearing, mild distress due to pain Head: Atraumatic Eyes: Scleral icterus, PERRLA, EOMI ENT: Dry mucous membranes with dried blood around lips and teeth. No oral lacerations Neck: Full range of motion. No meningismus. +JVD Resp: Diminished breath sounds bilaterally. No wheezing rales or rhonchi Cardio: Tachycardic with regular rhythm, no murmurs cap refill delayed in distal extremities. 1+ distal pulses noted in all 4 extremities. Abd: Soft, distended, diffusely tender with no rebound or guarding. Questionable peritoneal signs. Normal bowel sounds Skin: Jaundiced. Multiple bruises and petechiae noted Back: No midline or flank tenderness Ext: No cyanosis, 1+ BLE edema Neur: Awake and alert, answers some questions appropriately but cannot tell me the date. Appears to be hallucinating. Strength and sensations grossly intact in all 4 extremities Psych: Normal Mood and Affect Result Diagram: 10/06/18 0836 10/06/18 0836 Results 24 hrs Laboratory Tests Test 10/05/18 19:03 10/05/18 19:06 10/05/18 19:50 10/05/18 20:23 White Blood Count 1.4 10^3/ul Red Blood Count 2.64 10^6/ul Hemoglobin 9.4 g/dl Hematocrit 27.4 % Mean Corpuscular 103.8 fl Volume Mean Corpuscular 35.6 pg Hemoglobin Mean Corpuscular 34.3 g/dl Hemoglobin Concent Red Cell 20.4 % Distribution Width Platelet Count 61 10^3/UL Mean Platelet 8.8 fl Volume Immature 0.000 % Granulocytes % Neutrophils % % Segmented 52 % Neutrophils % (Manual) Band Neutrophils % 19 % (Manual) Lymphocytes % % Lymphocytes % 23 % (Manual) Monocytes % % Monocytes % 3 % (Manual) Eosinophils % % Eosinophils % 1 % (Manual) Myelocytes % 2 % (Manual) Nucleated Red Blood 5 % Cells % Immature 0.000 10^3/ul Granulocytes # Neutrophils # 10^3/ul Neutrophils # 0.7 10^3/ul (Manual) Band Neutrophils # 0.2 10^3/ul Lymphocytes 0.3 10^3/ul (Manual) Lymphocytes # 10^3/ul Monocytes # 10^3/ul Monocytes # 0.0 10^3/ul (Manual) Eosinophils # 10^3/ul Myelocytes # 0.0 10^3/ul Pathologist YES Review (Hematology) Poikilocytosis 3+ Anisocytosis 1+ Microcytosis 1+ Prothrombin Time 33.0 Sec Prothrombin Time 2.6 Ratio INR International 3.23 Normalized Ratio Activated 42.8 Sec Partial Thromboplas t Time Sodium Level 130 mmol/L Potassium Level 4.1 mmol/L Chloride Level 99 mmol/L Carbon Dioxide 17 mmol/L Level Anion Gap 14 Blood Urea Nitrogen 11 mg/dl Creatinine 0.74 mg/dl Est Glomerular > 60 mL/min Filtrat Rate mL/min Glucose Level 78 mg/dl Calcium Level 8.5 mg/dl Total Bilirubin 12.7 mg/dl Direct Bilirubin 3.70 mg/dl Indirect Bilirubin 9.0 mg/dl Aspartate Amino 50 IU/L Transf (AST/SGOT) Alanine 36 IU/L Aminotransferase (A LT/SGPT) Alkaline 92 IU/L Phosphatase Troponin I 0.020 ng/ml Total Protein 5.8 g/dl Albumin 2.4 g/dl Globulin 3.40 g/dl Albumin/Globulin 0.70 Ratio POC Venous Lactate 4.9 mmol/L Urine Color KALEB Urine Clarity CLEAR Urine pH 5.0 Urine Specific 1.008 [place] Urine Ketones NEGATIVE mg/dL Urine Nitrite NEGATIVE mg/dL Urine Bilirubin NEGATIVE mg/dL Urine Urobilinogen NEGATIVE mg/dL Urine Leukocyte NEGATIVE Cindi/ul Esterase Urine Hemoglobin NEGATIVE mg/dL Urine Glucose NEGATIVE mg/dL Urine Total Protein NEGATIVE mg/dl Ammonia 35 umol/l Test 10/05/18 21:47 POC Venous Lactate 8.1 mmol/L Current Medications Medications Dose Sig/Corey Start Time Status Last (Trade) Ordered Route PRN Stop Time Admin Dose Reason Admin Cefepime HCl 50 ml @ ONCE STAT 10/05/18 DC 10/05/18 100 mls/hr IVPB 19:07 10/05/18 19:25 19:36 Sodium 1,000 ml @ Q1H STAT 10/05/18 DC 10/05/18 Chloride 1,000 mls/hr IV 19:48 10/05/18 19:51 20:47 Lidocaine/ 20 ml ONCE ONCE 10/05/18 DC Epinephrine INJ 21:00 10/05/18 (Xylocaine 21:01 2%/ Epi (Mdv) 20 ml) Procedures/MDM EMERGENT LABS AND DIAGNOSTIC STUDIES: Lab Results above were reviewed and interpreted by me. CBC: Pancytopenia, likely due to sepsis and ESLD CMP: Evidence of liver disease, consistent with history of end-stage liver disease. Mild hyponatremia with evidence of acidosis. No evidence of clinically significant renal failure, hypoglycemia Ammonia elevated, due to hepatic dysfunction Troponin within normal limits, not indicative of cardiac ischemia Lactate severely elevated, consistent with septic shock UA: no evidence of infection 12-lead EKG was interpreted by Shin Espinal MD: Sinus tachycardia 145 Normal axis Normal intervals No acute ST or T wave changes suggestive of acute ischemia or STEMI. Radiology Results as interpreted by Radiology below were reviewed by Daisy Espinal MD: Chest x-ray: No acute abnormalities Initial Nursing notes reviewed. Previous Medical Records requested via the Electronic Health Record. EMERGENCY DEPARTMENT COURSE / MEDICAL DECISION MAKING: Procedure - Paracentesis by me: Patient consented, sterilely draped, full prep, gown, glove, mask, time out performed. Anesthesia: 1% lidocaine with epi locally Location: Left mid abdomen Device: Needle aspiration with spinal needle Results: 40 ml bloody, cloudy fluid aspirated No complications. ED Ultrasound: Fluid pocket localized by me under concurrent ultrasound guidance. Central Line Placement by me: After the patient was consented and a time out was performed, appropriate hand hygiene was performed, the skin site was fully prepped and maximal sterile barrier technique was employed where the patient was sterilely draped, and the provider wore a mask and sterile gown and gloves. Anesthesia: 1% lidocaine locally Location: Right IJ Device: Multiple lumen Technique: Seldinger technique. Secured with suture. Results: Venous return from all ports with easy saline flush. No complications. Guide wire retrieved and disposed of Ultrasound guidance for procedure performed by me: Procedural Indication: Central venous access Technique: localized under ultrasound guidance during this procedure Chest X-ray 1V Interpreted by me: Central line in right atrium, Normal soft tissue, No evidence of pneumothorax Admit MDM: Patient's presentation was concerning for severe sepsis with signs of SBP. Sepsis workup and treatment was initiated. Lactate elevated, consistent with septic shock. However her baseline lactate is likely elevated given her history of liver disease causing decreased lactic acid clearance. She had borderline hypotension on arrival with tachycardia and fever. According to patient and her previous records, patient does have chornic hypotension due to chronic disease. IV antibiotics for SBP given and small fluid bolus given her signs of fluid overload on exam. She started to become more hypotensive and remained tachycardic. Her lactic acid was also increasing. For this reason, patient required CVC placement and vasopressor support. Her CVC was placed to deep and needs to be pulled back. Patient is being signed out to Dr. Lama and line will be repositioned by him. Patient's infectious symptoms have not stabilized, and the patient is at risk of rapid decompensation. The patient will be admitted for careful hydration, antibiotic therapy, and infectious source control. Severe Sepsis criteria: Infectious source: Suspect intra-abdominal End organ damage indicated by: Lactate > 2.0 mmol/L Hypotension (SBP < 90 or >40 mmHG drop or MAP < 65) INR > 1.5 Plt < 100 Bili > 2 Sepsis Management: Time of recognition of severe sepsis: 18:53 Within 3 hours of recognition: Blood cultures x 2 before broad-spectrum antibiotics: Yes 30 ml/kg NS bolus not completed given patient's fluid overload on exam Initial lactate 4.9 Repeat lactate 8.1 Septic Shock Assessment: Any lactic acid > 4.0 Yes Persistent hypotension A focused sepsis perfusion/reperfusion reassessment examination was performed post 30ml/kg bolus @ 20:20: Temp 101.6F, BP 71/45, HR 130, RR20, Pox 96% on 4L o2 Persistent Hypotension Treatment: Comfort care No Hypotension caused by: pt. baseline, med-induced, erroneous value, condition other than infection- No Refusal by patient/decision maker for: blood draw, IVF, Antibiotics, Pressors - No Central line placed Vasopressor started Norepinephrine Accepting Care Team Current data and ongoing care discussed. Admitting Physician: Dr. Gamble Mix Mill Tender(s): Outstanding Data: Blood cultures, ascites fluid studies Critical Care Time: 70 minutes Treatments/Evaluations: Close monitoring and treatment of unstable vital signs, cardiorespiratory, and neurologic status, while maintaining tight balance of fluid, respiratory, and cardiac interventions. This includes the administration of emergency fluid management while maintaining close respiratory support as well as the provision of immediate and broad-spectrum antibiotic therapy, while performing a simultaneous assessment for possible sources in order to direct targeted therapy. This time includes discussing the case with the patient and the patients family.This time also includes the consideration for invasive and chemical support to prevent cardiopulmonary collapse. This time does not include all procedures stated elsewhere in this record. This time also includes reviewing old records, labs and radiological studies. This time includes examining and reexamining the patient. Additionally, this time also includes arranging care with admitting and consulting physicians. Departure Diagnosis: Primary Impression: Septic shock Additional Impressions: Spontaneous bacterial peritonitis Liver failure Liver failure chronicity: chronic Hepatic coma status: without hepatic coma Qualified Codes: K72.10 - Chronic hepatic failure without coma Acute hepatic encephalopathy Coagulopathy Pancytopenia, acquired Condition: Critical RADHA ESPINAL MD October 05, 2018 22:33
[2018-10-05] MEDS ORDERED: VANCOMYCIN IV PER PHARMACY XX SCH (23:00)
[2018-10-05] MEDS ORDERED: PHYTONADIONE 10 MG in DEXTROSE 5% 50 ML IVPB ONE (23:00)
[2018-10-05] MEDS ORDERED: ALBUMIN HUMAN 25% 100 ML IV ONE (23:00)
[2018-10-05] MEDS ORDERED: CEFTRIAXONE 2 GM/50 ML (PMX) 50 ML IVPB SCH (23:00)
[2018-10-05] MEDS ORDERED: VANCOMYCIN HCL 1.75 GM in SOD CHLORIDE 0.9% 500 ML IVPB SCH (23:30)
[2018-10-05] MEDS ORDERED: MIDAZOLAM 1 MG/ML 2 ML INJ IV ONE (23:30)
[2018-10-05] MEDS ORDERED: ACETAMINOPHEN 325 MG TAB ONE (23:38)
[2018-10-06] VITALS (63 sets, daily range): BP systolic 46–122; BP diastolic 21–109; PULSE 112–133; RESP 16–33
[2018-10-06] MEDS ORDERED: ACETAMINOPHEN 325 MG TAB PO ONE
[2018-10-06] MEDS: NORepinephrine 8MG/250 ML (PMX 250 ML IV SCH ×4 (00:11→17:25)
[2018-10-06] MEDS ORDERED: FENTAnyl 50 MCG/ML VIAL IV ONE (00:30)
[2018-10-06] MEDS ORDERED: ALBUMIN HUMAN 25% 200 ML IV ONE (01:00)
[2018-10-06] MEDS ORDERED: DOPamine-D5W 1.6 MG/ML 250 ML IV STA (01:04)
[2018-10-06] MEDS ORDERED: VASOPRESSIN 60 UNIT in SOD CHLORIDE 0.9% 57 ML IV STA (01:04)
[2018-10-06] MEDS ORDERED: ACETAMINOPHEN 650MG/20.3ML CUP PO PRN (01:30)
[2018-10-06] MEDS ORDERED: ONDANSETRON 4 MG INJ IV PRN (01:30)
[2018-10-06] MEDS ORDERED: LEVOFLOXACIN 750MG/D5W (PMX) 150 ML IVPB ONE (01:30)
[2018-10-06] MEDS ORDERED: HYDROCORTISONE 100 MG INJ IV ONE (01:30)
--- NOTE | 2018-10-06 01:37 | HP ---
Date/Time of Note Date/Time of Note DATE: 10/06/18 TIME: 01:37 Assessment/Plan VTE Prophylaxis SCD applied (from Nsg): Yes Pharmacological prophylaxis: NA/contraindicated Pharm contraindication: low risk/ambulating Lines/Catheters IV Catheter Type (from Nrsg): Saline Lock Assessment/Plan Hospital Course 48-year-old female being admitted to the ICU floor for: #1 septic shock: Secondary to suspected SBP, possible pneumonia. Broad-spectrum antibiotics. Patient will be having a central line placed and then will be initiated on vasopressor support. Will trend lactic acid levels. Initially was before. Patient does appear to be volume depleted we will also give a bolus of normal saline and albumin. Cultures are pending. We will hold off on diuretics at the current time given patient's hypotension. #2 hepatic encephalopathy: Patient does appear to be slightly confused, ammonia level is 45. Lactulose and rifaximin as tolerated. #3 suspect SBP: Patient did have a diagnostic tap in the ED, we will await fluid analysis. Currently on broad-spectrum antibiotics including ceftriaxone follow- up fluid analysis. #4 Possible healthcare associated pneumonia: Chest x-ray shows signs concerning for possible healthcare associated pneumonia. Again broad-spectrum antibiotics. Cultures are pending. #5 metabolic acidosis: Multifactorial secondary to underlying becomes alcoholic cirrhosis, septic shock. Patient's bicarbonate BG is 9. She also has a significant lactic acidosis. Will initiate patient on bicarb drip at 100 cc an hour. Consult nephrology. #6 decompensated alcoholic liver cirrhosis: Patient has had multiple paracentesis in the past. Bilirubin 12. Patient is jaundiced. Continue lactulose, rifaximin. Consult GI Dr. sharp. #7 hyponatremia: Secondary to decompensated alcoholic liver cirrhosis. Patient at the current time does appear to be intravascularly depleted. Will hydrate patient gently. #8 anemia secondary to liver disease, chronic. No signs of active bleeding. Protonix IV #9 coagulopathy: Secondary to decompensated alcohol liver cirrhosis with possible worsening with septic shock. Follow coag studies. She did receive a dose of vitamin K 10 mg she did have a paracentesis performed. #10 pancytopenia: Secondary to underlying decompensated alcoholic liver cirrhosis as well as worsened by underlying septic shock. Neutropenic precautions. Broad-spectrum antibiotics. Avoid anticoagulation. SCDs #11 DVT GI prophylaxis: SCDs, Protonix Greater than 45 minutes critical care time spent in the care management this patient. Prognosis: poor Code status: full code, will consult palliative care dr. butterfield Further treatment strategy will be provided as per the clinical course. Result Diagram: 10/05/18190210/05/183 Results 24hrs Laboratory Tests Test 10/05/18 19:03 10/05/18 19:06 10/05/18 19:50 10/05/18 20:23 White Blood Count 1.4 #L Red Blood Count 2.64 L Hemoglobin 9.4 L Hematocrit 27.4 L Mean Corpuscular 103.8 H Volume Mean Corpuscular 35.6 H Hemoglobin Mean Corpuscular 34.3 Hemoglobin Concen t Red Cell 20.4 H Distribution Width Platelet Count 61 #L Mean Platelet 8.8 Volume Immature 0.000 L Granulocytes % Neutrophils % Segmented 52 Neutrophils % (Manual) Band Neutrophils 19 H % (Manual) Lymphocytes % Lymphocytes % 23 (Manual) Monocytes % Monocytes % 3 (Manual) Eosinophils % Eosinophils % 1 (Manual) Myelocytes % 2 H (Manual) Nucleated Red 5 H Blood Cells % Immature 0.000 Granulocytes # Neutrophils # Neutrophils # 0.7 L (Manual) Band Neutrophils 0.2 # Lymphocytes 0.3 L (Manual) Lymphocytes # Monocytes # Monocytes # 0.0 L (Manual) Eosinophils # Myelocytes # 0.0 Pathologist YES Review (Hematolog y) Poikilocytosis 3+ Anisocytosis 1+ Microcytosis 1+ Prothrombin Time 33.0 H Prothrombin Time 2.6 Ratio INR International 3.23 Normalized Ratio Activated 42.8 H Partial Thrombopl ast Time Sodium Level 130 L Potassium Level 4.1 Chloride Level 99 Carbon Dioxide 17 L Level Anion Gap 14 H Blood Urea 11 Nitrogen Creatinine 0.74 Est Glomerular > 60 Filtrat Rate mL/min Glucose Level 78 Calcium Level 8.5 Total Bilirubin 12.7 H Direct Bilirubin 3.70 H Indirect 9.0 H Bilirubin Aspartate Amino 50 H Transf (AST/SGOT) Alanine 36 Aminotransferase (ALT/SGPT) Alkaline 92 Phosphatase Troponin I 0.020 Total Protein 5.8 L Albumin 2.4 L Globulin 3.40 H Albumin/Globulin 0.70 Ratio POC Venous 4.9 *H Lactate Urine Color KALEB Urine Clarity CLEAR Urine pH 5.0 Urine Specific 1.008 [place] Urine Ketones NEGATIVE Urine Nitrite NEGATIVE Urine Bilirubin NEGATIVE Urine NEGATIVE Urobilinogen Urine Leukocyte NEGATIVE Esterase Urine Hemoglobin NEGATIVE Urine Glucose NEGATIVE Urine Total NEGATIVE Protein Ammonia 35 #H Test 10/05/18 21:47 10/05/18 22:32 10/05/18 22:57 10/05/18 23:34 POC Venous 8.1 *H Lactate Body Fluid Type ASCITES Body Fluid Volume 45.0 Body Fluid Color ORANGE Body Fluid SLIGHTLY CLOUDY Appearance Body Fluid WBC 3527 Body Fluid RBC 45556 (Auto) Body Fluid 95.1 Polynuclear WBCs (%) Body Fluid 4.9 Mononuclear Cells % Auto Blood Gas Blood arterial Specimen Source Arterial Blood 10/05/2018 11:10:1 Date Drawn 3 PM Arterial Blood pH 7.320 L (Temp corrected) Arterial Blood 19.4 L pCO2 (Temp correct) Arterial Blood 92.5 pO2 (Temp corrected) Arterial Blood 9.8 *L HCO3 Arterial Blood -14.2 L Base Excess Arterial Blood 96.2 Oxygen Saturation Luke Test ACCEPTAB Arterial Blood Left Radial Gas Puncture Site Arterial 1.5 Blood Carboxyhemo globin Arterial Blood 0.5 Methemoglobin Blood Gas A-a O2 113.0 H Differential Oxyhemoglobin 94.3 Percent Blood Gas 37.0 Temperature Blood Gas NASAL CANNULA Modality FiO2 32.0 Blood Gas Allen CHAMPION MD Critical Value Read Back Blood Gas Notified Whom Blood Gas 10/05/2018 11:21:5 Notified Time 5 PM Lactic Acid Level 12.6 *H HPI/ROS Admit Date/Time Admit Date/Time Hx of Present Illness cc: fevers, ab pain x 1 day 48-year-old female with a history of end-stage liver disease due to alcoholic cirrhosis brought in by ambulance from [facility] for abdominal pain and fever. Patient states that her last paracentesis was 1 week ago. She is complaining of diffuse abdominal pain. She denies any vomiting but has dried blood around her lips and tongue. She appears icteric and abdomen is distended. She does appear to be in distress from abdominal pain. She is able to answer some questions however she does appear slightly confused. She has multiple petechiae and bruising of her skin. Patient had a bedside paracentesis performed by the ED physician with the fluid sent to the labs for suspected SBP. On examination patient was noted to be febrile tachycardic and had blood pressure in systolic of the 80s. Allergies: NKDA medications: See MAR ROS Const: As per HPI Eyes : No pain discharge or redness or change in visual acuity ENT: No pain, sore throat, congestion, congestion, dysphagia or discharge Respiratory: No shortness of breath, cough, sputum, wheezing, or pleuritic pain Cardiovascular: No chest pain, palpitation, PND, or edema GI : As per HPI Genitourinary: No dysuria, hematuria, flank pain , discharge or CVA tenderness Musculoskeletal: No joint pain, back pain, neck pain, restricted range of motion in neck or joints Skin: No rash, bruising or hives Neuro: No headache, dizziness, syncope, seizure, focal weakness Endocrine: No polyuria, polydipsia, temperature intolerance Psych: No hallucination, depression, anxiety or suicidal ideation PMH/Family/Social Past Medical History decompensated alcoholic liver cirrhosis, SBP, Klebsiella bacteremia, left foot wound status post debridement with wound VAC, C. difficile colitis, left breast implant rupture, PTSD, bipolar Medications Current Medications Vancomycin HCl (Vanco Iv Per Pharmacy) VANCOMYCIN PER PHARMACY PER PROTOCOL XX ; Start 10/05/18 at 23:00 Ceftriaxone Sodium 50 ml @ 100 mls/hr Q24H IVPB Last administered on 10/05/18at 23:45; Admin Dose 100 MLS/HR; Start 10/05/18 at 23:00 Vancomycin HCl 1.75 gm/Sodium Chloride 500 ml @ 125 mls/hr NOW IVPB Last administered on 10/06/18at 01:21; Admin Dose 125 MLS/HR; Start 10/05/18 at 23:30; Stop 10/06/18 at 05:00 Norepinephrine 250 ml @ 1.875 mls/ hr TITRATE IV Last administered on 10/06/18at 00:11; Admin Dose 1.875 MLS/HR; Start 10/05/18 at 23:30 Vancomycin HCl 1.25 gm/Sodium Chloride 250 ml @ 83.333 mls/ hr Q12H IVPB ; Start 10/06/18 at 13:00 Albumin Human 200 ml @ 100 mls/hr ONCE ONCE IV Last administered on 10/06/18at 01:20; Admin Dose 100 MLS/HR; Start 10/06/18 at 01:00; Stop 10/06/18 at 02:59 Vasopressin 60 unit/Sodium Chloride 60 ml @ 2.4 mls/hr ONCE STAT IV ; Start 10/06/18 at 01:04; Stop 10/07/18 at 02:03 Sodium Bicarbonate 150 meq/Dextrose 1,000 ml @ 70 mls/hr [id number] IV ; Start 10/06/18 at 01:30 Ondansetron HCl (Zofran Inj) 4 mg Q6H PRN IV NAUSEA AND/OR VOMITING; Start 10/06/18 at 01:30 Acetaminophen (Tylenol Liquid) 650 mg Q6H PRN PO PAIN LEVEL 1-3 OR FEVER; Start 10/06/18 at 01:30 Morphine Sulfate (morphine) 1 mg Q4H PRN IV PAIN LEVEL 7-10; Start 10/06/18 at 01:30 Pantoprazole (Protonix Iv) 40 mg DAILY@06 IV ; Start 10/06/18 at 06:00 Levofloxacin/ Dextrose 150 ml @ 100 mls/hr ONCE ONCE IVPB ; Start 10/06/18 at 01:30; Stop 10/06/18 at 02:59 Hydrocortisone (Solu-Cortef) 100 mg Q8 IV ; Start 10/06/18 at 06:00; Status UNV Coded Allergies: No Known Allergy (Unverified , 10/06/18) Past Surgical History Multiple paracentesis, history of breast implants Family History Significant Family History: no pertinent family hx Social History Alcohol Use: sober Smoking Status: Former smoker Drug Use: none Exam/Review of Systems Vital Signs Vitals Vital Signs Date Temp Pulse Resp B/P (MAP) Pulse Ox O2 O2 Flow FiO2 Time Delivery Rate 10/06/18 101.6 00:44 10/06/18 130 20 71/45 (54) 100 Room Air 4.0 00:16 Nasal Cannula Exam Additional Comments PROCEDURE: XR Chest AP portable CLINICAL INDICATION: Sepsis TECHNIQUE: An AP portable radiograph of the chest was submitted. COMPARISON: 09/26/2018 FINDINGS: Support Hardware: None Cardiovascular: The heart remains mildly enlarged although pulmonary vasculature is again unremarkable. Mild atherosclerotic calcification is noted within the aortic arch. Lung [place]: The patient is again taken a poor inspiration compressing lung parenchyma with increasing density seen to the heart within the left lung base suspicious for atelectasis or infiltrate. Pleural Spaces: No pneumothorax or pleural effusion is identified. Osseous Structures: The osseous structures appear intact. Soft Tissues: The soft tissues appear unremarkable. IMPRESSION: 1. Persistent mild cardiomegaly without CHF. Atherosclerotic calcification is again noted within the aorta. 2. Poor inspiration with vague increase in density seen to the heart suspicious for subsegmental atelectasis or infiltrate within the left lung base. No effusi on or pneumothorax is evident. Physician Jessica Date Time Electronically viewed and signed by Carl Teresa Physician on 10/05/2018 19:54 RH/ CC: RADHA MORALES MD [phone] REMY CHAMPION October 06, 2018 01:37
[2018-10-06] MEDS: SODIUM BICARBONATE (IV ADD) 150 MEQ in DEXTROSE 5% 1,000 ML IV SCH ×3 (02:17→21:32)
--- NOTE | 2018-10-06 02:17 | QN ---
Documentation Comment The patient was endorsed to me. The patient's triple-lumen catheter was too deep and required pulling back. Triple-lumen catheter adjustment: A sterile procedure was performed. The patient was laid down. Using scissors I was able to remove 2 of the sutures. The triple-lumen catheter was pulled back to [address] New sterile dressing was applied. Repeat chest x- ray was ordered. The patient tolerated procedure well and no complications. Repeat chest x-ray Chest x-ray: I reviewed and interpreted a 1 view of the chest Mediastinum: No enlargement Cardiac silhouette: No cardiomegaly Airspace: Triple-lumen catheter in improved position. No pneumothorax Bones: No evidence of fracture the patient continued to be hypotensive and is pending ICU placement. I have added vasopressin, dopamine and stress dose steroids. The patient continues to protect her airway but given severe sepsis and septic shock, low threshold for intubation and airway protection to reduce metabolic demand. Currently the patient is protecting airway, continue to monitor. I discussed the case with Dr. Gamble. The patient is pending ICU bed. SEA FARRAR MD October 06, 2018 02:17
[2018-10-06] MEDS ORDERED: FURO20TA3 PO (02:27)
[2018-10-06] MEDS ORDERED: SOD CHLORIDE 0.9% 500 ML IV ONE ×3 (04:30→22:00)
[2018-10-06] MEDS: morphine 2 MG INJ IV PRN ×4 (04:32→22:40)
[2018-10-06] MEDS ORDERED: LORAZEPAM 2 MG INJ IV ONE (05:00)
[2018-10-06] MEDS: HYDROCORTISONE 100 MG INJ IV SCH ×3 (05:30→21:49)
[2018-10-06] MEDS ORDERED: PANTOPRAZOLE 40 MG INJ IV SCH (06:00)
[2018-10-06] MEDS: PHENYLephrine 40 MG in DEXTROSE 5% 246 ML IV SCH ×4 (06:03→17:25)
--- NOTE | 2018-10-06 08:15 | CONS ---
Assessment/Plan Assessment/Plan Assessment/Plan (Daily) Septic shock, probably peritonitis Past medical history of C. difficile colitis Hemodynamic compromise on 2 pressors Leukopenia Anemia cytosis Thrombocytopenia Mental status changes Overall prognosis extremely poor in spite of the fact she says she does not want me to contact family members I will anyway. Consultation Date/Type/Reason Admit Date/Time Date/Time of Note DATE: 10/06/18 TIME: 08:12 Hx of Present Illness This is a 48-year-old confused female who was admitted through the emergency room [facility] when shock. Patient has a chronic history of decompensated liver cirrhosis presented this time septic. Multiple fluid and electrolyte abnormalities are being corrected at this time. Patient is confused and cannot give a clear past medical history. Reviewing her medical records she has been admitted here in the past she has a history of C. difficile colitis left foot wound past medical history of Klebsiella bacteremia. Apparently she lives in a long-term unit and was transferred to [facility] with abdominal pain and fever in the emergency room she was complaining of diffuse abdominal discomfort and underwent a paracentesis results of those studies are unavailable. What I can ascertain from patient she denies IV drug abuse or recent history of alcohol consumption. Once again her past medical history is suspect. Paracentesis shows slightly cloudy fluid white blood cell count of 3527 RBC 22,095% polymorphonuclear white blood cells. I have asked if I could contact family members although she is treated at this time adamantly says no. Past Medical History Medical History: colitis, hepatitis Home Meds Active Scripts Lubiprostone* (Amitiza*) 24 Mcg Capsule, 24 MCG PO BID for 30 Days, #60 CAP Prov:LOUIE RUIZ MD 08/23/18 Lactulose* (Lactulose*) 20 Gm/30 Ml Solution, 10 GM PO DAILY for 30 Days, #1 BOTTLE Prov:LOUIE RUIZ MD 08/23/18 Furosemide (Lasix) 20 Mg Tab, 20 MG PO DAILY for 30 Days, #30 TAB 6 Refills Prov:LOUIE RUIZ MD 08/23/18 Ondansetron (Ondansetron Odt) 4 Mg Tab.rapdis, 4 MG PO Q6H PRN for NAUSEA AND/OR VOMITING, #10 TAB Prov:ALEXANDRIA QUIROGA MD 06/14/18 Reported Medications Furosemide* (Furosemide*) 20 Mg Tablet, 20 MG PO DAILY for 30 Days 10/06/18 Hydromorphone Hcl (Dilaudid) 4 Mg Tab, 4 MG PO DAILY 09/26/18 Lorazepam* (Lorazepam*) 0.5 Mg Tablet, 0.5 MG PO DAILY for 30 Days 09/26/18 Zolpidem Tartrate* (Zolpidem Tartrate*) 5 Mg Tablet, 5 MG PO QHS 09/26/18 Midodrine* (Midodrine*) 5 Mg Tablet, 5 MG PO DAILY 09/26/18 Potassium Chloride* (K-Dur*) 20 Meq Tab.prt.sr, 20 MEQ PO DAILY for 30 Days 09/26/18 Albuterol Sulfate* (Ventolin HFA*) 18 Gm Hfa.aer.ad, 2 PUFF INHALATION Q4H, #1 INHALER 06/28/18 Spironolactone* (Aldactone*) 100 Mg Tablet, 100 MG PO BID, #60 TAB 05/15/18 Medications Current Medications Vancomycin HCl (Vanco Iv Per Pharmacy) VANCOMYCIN PER PHARMACY PER PROTOCOL XX ; Start 10/05/18 at 23:00 Ceftriaxone Sodium 50 ml @ 100 mls/hr Q24H IVPB Last administered on 10/05/18at 23:45; Admin Dose 100 MLS/HR; Start 10/05/18 at 23:00 Norepinephrine 250 ml @ 1.875 mls/ hr TITRATE IV Last administered on 10/06/18at 00:11; Admin Dose 1.875 MLS/HR; Start 10/05/18 at 23:30 Vancomycin HCl 1.25 gm/Sodium Chloride 250 ml @ 83.333 mls/ hr Q12H IVPB ; Start 10/06/18 at 13:00 Vasopressin 60 unit/Sodium Chloride 60 ml @ 2.4 mls/hr ONCE STAT IV Last administered on 10/06/18at 02:00; Admin Dose 2.4 MLS/HR; Start 10/06/18 at 01:04; Stop 10/07/18 at 02:03 Sodium Bicarbonate 150 meq/Dextrose 1,000 ml @ 100 mls/hr Q10H IV Last administered on 10/06/18at 02:17; Admin Dose 100 MLS/HR; Start 10/06/18 at 01:30 Ondansetron HCl (Zofran Inj) 4 mg Q6H PRN IV NAUSEA AND/OR VOMITING; Start 10/06/18 at 01:30 Acetaminophen (Tylenol Liquid) 650 mg Q6H PRN PO PAIN LEVEL 1-3 OR FEVER; Start 10/06/18 at 01:30 Morphine Sulfate (morphine) 1 mg Q4H PRN IV PAIN LEVEL 7-10 Last administered on 10/06/18at 04:32; Admin Dose 1 MG; Start 10/06/18 at 01:30 Pantoprazole (Protonix Iv) 40 mg DAILY@06 IV Last administered on 10/06/18at 05:30; Admin Dose 40 MG; Start 10/06/18 at 06:00 Hydrocortisone (Solu-Cortef) 100 mg Q8 IV Last administered on 10/06/18at 05:30; Admin Dose 100 MG; Start 10/06/18 at 06:00 Phenylephrine HCl 40 mg/Dextrose 250 ml @ 37.5 mls/hr TITRATE IV Last administered on 10/06/18at 06:03; Admin Dose 37.5 MLS/HR; Start 10/06/18 at 05:00 Allergies: Coded Allergies: No Known Allergy (Unverified , 10/06/18) Past Surgical History Past Surgical Hx: other (Unknown) Social History Alcohol Use: heavy Smoking Status: Former smoker Exam/Review of Systems Exam Vitals Vital Signs Date Temp Pulse Resp B/P (MAP) Pulse Ox O2 O2 Flow FiO2 Time Delivery Rate 10/06/18 131 22 99 06:45 10/06/18 98.0 06:30 10/06/18 98/57 (71) Room Air 06:00 10/06/18 4.0 00:16 Intake and Output 10/05/18 10/05/18 10/06/18 1515:00 23:00 07:00 IntakeIntake Total 600 ml BalanceBalance 600 ml Constitutional: frail Psych: confusion Head: normocephalic, atraumatic Eyes: icteric ENMT: nl external ears & nose, nl lips & teeth, nl nasal mucosa & septum Neck: supple, non-tender Respiratory: congested cough, crackles/rales, intercostal retraction Cardiovascular: edema, S3, S4 Gastrointestinal: distended, tender, other (Low active bowel sounds all 4 quadrants tenderness right lower quadrant greater than left tenderness right upper quadrant greater than left) 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: [employer]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, lethargic, other (Confuse confabulates oriented x1 person, cranial nerves grossly intact) Skin: ecchymosis, other (Bilateral ecchymosis head to toe circumferential arm circumferential bilateral lower extremities) Results Result Diagram: 10/05/18190210/05/181902 Results 24hrs Laboratory Tests Test 10/05/18 19:03 10/05/18 19:06 10/05/18 19:50 10/05/18 20:23 White Blood Count 1.4 #L Red Blood Count 2.64 L Hemoglobin 9.4 L Hematocrit 27.4 L Mean Corpuscular 103.8 H Volume Mean Corpuscular 35.6 H Hemoglobin Mean Corpuscular 34.3 Hemoglobin Concen t Red Cell 20.4 H Distribution Width Platelet Count 61 #L Mean Platelet 8.8 Volume Immature 0.000 L Granulocytes % Neutrophils % Segmented 52 Neutrophils % (Manual) Band Neutrophils 19 H % (Manual) Lymphocytes % Lymphocytes % 23 (Manual) Monocytes % Monocytes % 3 (Manual) Eosinophils % Eosinophils % 1 (Manual) Myelocytes % 2 H (Manual) Nucleated Red 5 H Blood Cells % Immature 0.000 Granulocytes # Neutrophils # Neutrophils # 0.7 L (Manual) Band Neutrophils 0.2 # Lymphocytes 0.3 L (Manual) Lymphocytes # Monocytes # Monocytes # 0.0 L (Manual) Eosinophils # Myelocytes # 0.0 Pathologist YES Review (Hematolog y) Poikilocytosis 3+ Anisocytosis 1+ Microcytosis 1+ Prothrombin Time 33.0 H Prothrombin Time 2.6 Ratio INR International 3.23 Normalized Ratio Activated 42.8 H Partial Thrombopl ast Time Sodium Level 130 L Potassium Level 4.1 Chloride Level 99 Carbon Dioxide 17 L Level Anion Gap 14 H Blood Urea 11 Nitrogen Creatinine 0.74 Est Glomerular > 60 Filtrat Rate mL/min Glucose Level 78 Calcium Level 8.5 Total Bilirubin 12.7 H Direct Bilirubin 3.70 H Indirect 9.0 H Bilirubin Aspartate Amino 50 H Transf (AST/SGOT) Alanine 36 Aminotransferase (ALT/SGPT) Alkaline 92 Phosphatase Troponin I 0.020 Total Protein 5.8 L Albumin 2.4 L Globulin 3.40 H Albumin/Globulin 0.70 Ratio POC Venous 4.9 *H Lactate Urine Color KALEB Urine Clarity CLEAR Urine pH 5.0 Urine Specific 1.008 [place] Urine Ketones NEGATIVE Urine Nitrite NEGATIVE Urine Bilirubin NEGATIVE Urine NEGATIVE Urobilinogen Urine Leukocyte NEGATIVE Esterase Urine Hemoglobin NEGATIVE Urine Glucose NEGATIVE Urine Total NEGATIVE Protein Ammonia 35 #H Test 10/05/18 21:47 10/05/18 22:32 10/05/18 22:57 10/05/18 23:34 POC Venous 8.1 *H Lactate Body Fluid Type ASCITES Body Fluid Volume 45.0 Body Fluid Color ORANGE Body Fluid SLIGHTLY CLOUDY Appearance Body Fluid WBC 3527 Body Fluid RBC 43713 (Auto) Body Fluid 95.1 Polynuclear WBCs (%) Body Fluid 4.9 Mononuclear Cells % Auto Blood Gas Blood arterial Specimen Source Arterial Blood 10/05/2018 11:10:1 Date Drawn 3 PM Arterial Blood pH 7.320 L (Temp corrected) Arterial Blood 19.4 L pCO2 (Temp correct) Arterial Blood 92.5 pO2 (Temp corrected) Arterial Blood 9.8 *L HCO3 Arterial Blood -14.2 L Base Excess Arterial Blood 96.2 Oxygen Saturation Luke Test ACCEPTAB Arterial Blood Left Radial Gas Puncture Site Arterial 1.5 Blood Carboxyhemo globin Arterial Blood 0.5 Methemoglobin Blood Gas A-a O2 113.0 H Differential Oxyhemoglobin 94.3 Percent Blood Gas 37.0 Temperature Blood Gas NASAL CANNULA Modality FiO2 32.0 Blood Gas Allen CHAMPION MD Critical Value Read Back Blood Gas Notified Whom Blood Gas 10/05/2018 11:21:5 Notified Time 5 PM Lactic Acid Level 12.6 *H Medications Medication Current Medications Vancomycin HCl (Vanco Iv Per Pharmacy) VANCOMYCIN PER PHARMACY PER PROTOCOL XX ; Start 10/05/18 at 23:00 Ceftriaxone Sodium 50 ml @ 100 mls/hr Q24H IVPB Last administered on 10/05/18at 23:45; Admin Dose 100 MLS/HR; Start 10/05/18 at 23:00 Norepinephrine 250 ml @ 1.875 mls/ hr TITRATE IV Last administered on 10/06/18at 00:11; Admin Dose 1.875 MLS/HR; Start 10/05/18 at 23:30 Vancomycin HCl 1.25 gm/Sodium Chloride 250 ml @ 83.333 mls/ hr Q12H IVPB ; Start 10/06/18 at 13:00 Vasopressin 60 unit/Sodium Chloride 60 ml @ 2.4 mls/hr ONCE STAT IV Last administered on 10/06/18at 02:00; Admin Dose 2.4 MLS/HR; Start 10/06/18 at 01:04; Stop 10/07/18 at 02:03 Sodium Bicarbonate 150 meq/Dextrose 1,000 ml @ 100 mls/hr Q10H IV Last administered on 10/06/18at 02:17; Admin Dose 100 MLS/HR; Start 10/06/18 at 01:30 Ondansetron HCl (Zofran Inj) 4 mg Q6H PRN IV NAUSEA AND/OR VOMITING; Start 10/06/18 at 01:30 Acetaminophen (Tylenol Liquid) 650 mg Q6H PRN PO PAIN LEVEL 1-3 OR FEVER; Start 10/06/18 at 01:30 Morphine Sulfate (morphine) 1 mg Q4H PRN IV PAIN LEVEL 7-10 Last administered on 10/06/18at 04:32; Admin Dose 1 MG; Start 10/06/18 at 01:30 Pantoprazole (Protonix Iv) 40 mg DAILY@06 IV Last administered on 10/06/18at 05:30; Admin Dose 40 MG; Start 10/06/18 at 06:00 Hydrocortisone (Solu-Cortef) 100 mg Q8 IV Last administered on 10/06/18at 05:30; Admin Dose 100 MG; Start 10/06/18 at 06:00 Phenylephrine HCl 40 mg/Dextrose 250 ml @ 37.5 mls/hr TITRATE IV Last administered on 10/06/18at 06:03; Admin Dose 37.5 MLS/HR; Start 10/06/18 at 05:00 EDI RAMÍREZ October 06, 2018 08:15
[2018-10-06] MEDS ORDERED: SOD CHLORIDE 0.9% 1,000 ML IV ONE (08:30)
--- NOTE | 2018-10-06 08:40 | CONS ---
Assessment/Plan Assessment/Plan Assessment/Plan (Daily) Long discussion with patient's mother this morning at 08 30. She is made a very clear that she has been through this before with her daughter where she has been very ill and has had multiple hospitalizations related to alcohol consumption and end-stage liver disease. We spoke about options, level of care CODE STATUS. She is made it clear she does not want her daughter live on artificial life support which would include cardiopulmonary resuscitation and intubation and including a temporary trial of intubation. To clarify no intubation however all other measures will be done with high level of care in the intensive care unit. I will change patient's CODE STATUS. Consultation Date/Type/Reason Admit Date/Time October 05, 2018 at 22:27 Initial Consult Date Date/Time of Note DATE: 10/06/18 TIME: 08:38 Exam/Review of Systems Exam Vitals Vital Signs Date Temp Pulse Resp B/P (MAP) Pulse Ox O2 O2 Flow FiO2 Time Delivery Rate 10/06/18 131 22 99 06:45 10/06/18 98.0 06:30 10/06/18 98/57 (71) Room Air 06:00 10/06/18 4.0 00:16 Intake and Output 10/05/18 10/05/18 10/06/18 1515:00 23:00 07:00 IntakeIntake Total 600 ml BalanceBalance 600 ml Results Result Diagram: 10/05/18 1903 10/05/18 1903 Results 24hrs Laboratory Tests Test 10/05/18 19:03 10/05/18 19:06 10/05/18 19:50 10/05/18 20:23 White Blood Count 1.4 #L Red Blood Count 2.64 L Hemoglobin 9.4 L Hematocrit 27.4 L Mean Corpuscular 103.8 H Volume Mean Corpuscular 35.6 H Hemoglobin Mean Corpuscular 34.3 Hemoglobin Concen t Red Cell 20.4 H Distribution Width Platelet Count 61 #L Mean Platelet 8.8 Volume Immature 0.000 L Granulocytes % Neutrophils % Segmented 52 Neutrophils % (Manual) Band Neutrophils 19 H % (Manual) Lymphocytes % Lymphocytes % 23 (Manual) Monocytes % Monocytes % 3 (Manual) Eosinophils % Eosinophils % 1 (Manual) Myelocytes % 2 H (Manual) Nucleated Red 5 H Blood Cells % Immature 0.000 Granulocytes # Neutrophils # Neutrophils # 0.7 L (Manual) Band Neutrophils 0.2 # Lymphocytes 0.3 L (Manual) Lymphocytes # Monocytes # Monocytes # 0.0 L (Manual) Eosinophils # Myelocytes # 0.0 Pathologist YES Review (Hematolog y) Poikilocytosis 3+ Anisocytosis 1+ Microcytosis 1+ Prothrombin Time 33.0 H Prothrombin Time 2.6 Ratio INR International 3.23 Normalized Ratio Activated 42.8 H Partial Thrombopl ast Time Sodium Level 130 L Potassium Level 4.1 Chloride Level 99 Carbon Dioxide 17 L Level Anion Gap 14 H Blood Urea 11 Nitrogen Creatinine 0.74 Est Glomerular > 60 Filtrat Rate mL/min Glucose Level 78 Calcium Level 8.5 Total Bilirubin 12.7 H Direct Bilirubin 3.70 H Indirect 9.0 H Bilirubin Aspartate Amino 50 H Transf (AST/SGOT) Alanine 36 Aminotransferase (ALT/SGPT) Alkaline 92 Phosphatase Troponin I 0.020 Total Protein 5.8 L Albumin 2.4 L Globulin 3.40 H Albumin/Globulin 0.70 Ratio POC Venous 4.9 *H Lactate Urine Color KALEB Urine Clarity CLEAR Urine pH 5.0 Urine Specific 1.008 [place] Urine Ketones NEGATIVE Urine Nitrite NEGATIVE Urine Bilirubin NEGATIVE Urine NEGATIVE Urobilinogen Urine Leukocyte NEGATIVE Esterase Urine Hemoglobin NEGATIVE Urine Glucose NEGATIVE Urine Total NEGATIVE Protein Ammonia 35 #H Test 10/05/18 21:47 10/05/18 22:32 10/05/18 22:57 10/05/18 23:34 POC Venous 8.1 *H Lactate Body Fluid Type ASCITES Body Fluid Volume 45.0 Body Fluid Color ORANGE Body Fluid SLIGHTLY CLOUDY Appearance Body Fluid WBC 3527 Body Fluid RBC 13047 (Auto) Body Fluid 95.1 Polynuclear WBCs (%) Body Fluid 4.9 Mononuclear Cells % Auto Blood Gas Blood arterial Specimen Source Arterial Blood 10/05/2018 11:10:1 Date Drawn 3 PM Arterial Blood pH 7.320 L (Temp corrected) Arterial Blood 19.4 L pCO2 (Temp correct) Arterial Blood 92.5 pO2 (Temp corrected) Arterial Blood 9.8 *L HCO3 Arterial Blood -14.2 L Base Excess Arterial Blood 96.2 Oxygen Saturation Luke Test ACCEPTAB Arterial Blood Left Radial Gas Puncture Site Arterial 1.5 Blood Carboxyhemo globin Arterial Blood 0.5 Methemoglobin Blood Gas A-a O2 113.0 H Differential Oxyhemoglobin 94.3 Percent Blood Gas 37.0 Temperature Blood Gas NASAL CANNULA Modality FiO2 32.0 Blood Gas Allen CHAMPION MD Critical Value Read Back Blood Gas Notified Whom Blood Gas 10/05/2018 11:21:5 Notified Time 5 PM Lactic Acid Level 12.6 *H Medications Medication Current Medications Vancomycin HCl (Vanco Iv Per Pharmacy) VANCOMYCIN PER PHARMACY PER PROTOCOL XX ; Start 10/05/18 at 23:00 Ceftriaxone Sodium 50 ml @ 100 mls/hr Q24H IVPB Last administered on 10/05/18at 23:45; Admin Dose 100 MLS/HR; Start 10/05/18 at 23:00 Norepinephrine 250 ml @ 1.875 mls/ hr TITRATE IV Last administered on 10/06/18at 08:32; Admin Dose 56.25 MLS/HR; Start 10/05/18 at 23:30 Vancomycin HCl 1.25 gm/Sodium Chloride 250 ml @ 83.333 mls/ hr Q12H IVPB ; Start 10/06/18 at 13:00 Vasopressin 60 unit/Sodium Chloride 60 ml @ 2.4 mls/hr ONCE STAT IV Last administered on 10/06/18at 02:00; Admin Dose 2.4 MLS/HR; Start 10/06/18 at 01:04; Stop 10/07/18 at 02:03 Sodium Bicarbonate 150 meq/Dextrose 1,000 ml @ 100 mls/hr Q10H IV Last a dministered on 10/06/18at 02:17; Admin Dose 100 MLS/HR; Start 10/06/18 at 01:30 Ondansetron HCl (Zofran Inj) 4 mg Q6H PRN IV NAUSEA AND/OR VOMITING; Start 10/06/18 at 01:30 Acetaminophen (Tylenol Liquid) 650 mg Q6H PRN PO PAIN LEVEL 1-3 OR FEVER; Start 10/06/18 at 01:30 Morphine Sulfate (morphine) 1 mg Q4H PRN IV PAIN LEVEL 7-10 Last administered on 10/06/18at 04:32; Admin Dose 1 MG; Start 10/06/18 at 01:30 Pantoprazole (Protonix Iv) 40 mg DAILY@06 IV Last administered on 10/06/18at 05:30; Admin Dose 40 MG; Start 10/06/18 at 06:00 Hydrocortisone (Solu-Cortef) 100 mg Q8 IV Last administered on 10/06/18at 05:30; Admin Dose 100 MG; Start 10/06/18 at 06:00 Phenylephrine HCl 40 mg/Dextrose 250 ml @ 37.5 mls/hr TITRATE IV Last administered on 10/06/18at 06:03; Admin Dose 37.5 MLS/HR; Start 10/06/18 at 05:00 Sodium Chloride 1,000 ml @ 1,000 mls/hr Q1H ONCE IV Last administered on 10/06/18at 08:33; Admin Dose 1,000 MLS/HR; Start 10/06/18 at 08:30; Stop 10/06/18 at 09:29 EDI RAMÍREZ October 06, 2018 08:40
--- NOTE | 2018-10-06 08:55 | CONS ---
DATE OF ADMISSION: 10/05/2018 DATE OF CONSULTATION: 10/06/2018 TYPE OF CONSULTATION: Nephrology. REASON FOR CONSULTATION: Metabolic acidosis, lactic acidosis. PHYSICIAN REQUESTING CONSULT: Dr. Gamble. HISTORY OF PRESENT ILLNESS: This is a 48-year-old female with a past medical history of ETOH cirrhos is, history of anxiety disorder, history of bipolar disorder, history of PTSD who presents to [facility] due to abdominal pain, fever, and tachycardia. The patient was residing in a [facility] facility when she has noted to have abdominal pain, and fever. The patient previously had par acentesis one week ago. The patient has been having generalized pain since that time which progressi vely worsened. As a result, she came to the emergency room. Upon arrival, the patient was noted to be hypertensive with systolic pressures in the 70s. The patient had laboratory work done, which show ed an elevated lactic acid level and elevated T bilirubin. The patient was placed on broad spectrum antibiotics, was placed on pressor support for presumed septic shock and admitted to intensive care u [facility]. In terms of the patient's renal history, the patient's renal function and creatinine are currently wi thin normal limits. The patient's urinary output has been marginal in the last 6 hours. The patient does have a lactic acidosis, which has progressively increased. There have been no reports of any h emoptysis, hematemesis or hematochezia. PAST MEDICAL HISTORY: History of end-stage renal disease, history of bipolar disorder, history of an xiety. PAST SURGICAL HISTORY: Status post paracentesis, status post breast implants. SOCIAL HISTORY: Former smoker. MEDICATIONS: The patient's medication have been reviewed. ALLERGIES: Reviewed. REVIEW OF SYSTEMS: A 14-point review of systems was conducted. Pertinent positives stated in HPI, o therwise negative. PHYSICAL EXAMINATION: VITAL SIGNS: Blood pressure is 98/57, respirations 22, pulse of 132, temperature 98.0. HEENT: Head is normocephalic. NECK: Supple. HEART: Regular rate. LUNGS: Show diminished breath sounds at the base. ABDOMEN: Soft, nontender to palpation without rebound or guarding. The patient is jaundiced. EXTREMITIES: Negative for clubbing, cyanosis, no edema. DERMATOLOGIC: No rashes. MUSCULOSKELETAL: No joint effusion. NEUROLOGIC: No change in exam. LABORATORY DATA: From 10/05/2018 was reviewed. Lactic acid level was reviewed. ABG was reviewed. IMAGING STUDIES: Reviewed. MICROBIOLOGY: Reviewed. Blood cultures show gram-negative rods x2. ASSESSMENT AND PLAN: This is a 48-year-old female who presents with: 1. Hyponatremia, etiology is likely secondary to ETOH cirrhosis. The possibility of underlying supe rimposed syndrome of inappropriate antidiuretic hormone is a consideration. Plan is to do a full jung luation. We will check urine sodium and osmolarity, TSH, AM cortisol level, uric acid level. Monito r patient closely on IV fluids, avoid hypertonic fluids if possible. 2. Mixed acid base disorder. The patient has a metabolic anion gap acidosis secondary to lactic aci dosis, non-anion gap acidosis and respiratory alkalosis. The patient's ABG was reviewed. Currently, the patient is on a bicarbonate drip. We will monitor closely. Repeat an ABG level. 3. Anemia. Continue to monitor hemoglobin and hematocrit levels. 4. Septic shock, etiology is secondary to bacteremia, possible SBP. Continue current medical manage ment. Continue pressor support. Continue broad spectrum antibiotics, continue IV hydration, we will monitor closely. 5. ETOH cirrhosis/end-stage liver disease. The patient is currently decompensated. Continue to mon itor closely, monitor renal function closely. Consider GI evaluation. 6. History of Clostridium difficile colitis. The patient is being ruled out. We will check a Clost ridium difficile level. 7. Pancytopenia. Etiology is possibly due to splenic sequestration from underlying cirrhosis. Cont inue to monitor. Thank you, Dr. Gamble, for this interesting consult. It will be a pleasure to follow the patient wi th you throughout the hospital course. Dictated By: IESHA SNOW DO NR/NTS Conf#: [id number] DID#: [id number] CC: JUAN RAMON FOWLER MD; REMY GAMBLE MD;*EndCC*
[2018-10-06] MEDS: LACTULOSE 30ML CUP PO SCH ×3 (09:00→22:00)
[2018-10-06] MEDS: RIFAXIMIN 550 MG TAB PO SCH ×2 (09:00→21:00)
[2018-10-06] MEDS ORDERED: AMIKACIN IV PER PHARMACY XX SCH (09:30)
[2018-10-06] MEDS ORDERED: ALBUMIN HUMAN 25% 50 ML IV STA (09:46)
[2018-10-06] MEDS ORDERED: AMIKACIN 1,000 MG in SOD CHLORIDE 0.9% 100 ML IVPB SCH ×2 (10:30→11:00)
--- NOTE | 2018-10-06 10:34 | CONS ---
Assessment/Plan Assessment/Plan Assessment/Plan (Daily) Chest x-ray showing small lung volumes. No acute infiltrate seen. Recommendations; next 1. Patient admitted with abdominal pain and fevers with history of recent paracentesis due to end-stage cirrhotic liver disease.. Raising the possibility of possibly SBP. Currently on appropriate antimicrobial regimen. 2. Persistent shock, requiring combination pressor support. 3. Chronic anemia and thrombocytopenia due to liver disease. Continue current supportive care. Continue current antibiotics. Wean off pressor support as tolerated. Overall prognosis is poor. Consultation Date/Type/Reason Admit Date/Time October 05, 2018 at 22:27 Date of Consultation: October 06, 2018 Type of Consult Pulmonary/critical care Patient is a 48-year-old lady who came into the hospital with complaints of fever and abdominal pain. Patient does have a history of end-stage liver cirrhosis and underwent paracentesis recently at a different facility. By the time I saw the patient in the room patient appeared completely awake and alert and denied having any further abdominal pain. She denies any further fever, any nausea vomiting. Past medical history; 1. History of end-stage liver disease. 2. History of recent paracentesis. 3. Chronic anemia and thrombocytopenia. Medications; reviewed. Patient is currently on Levophed 30 mics per minute, phenylephrine drip 300 mics per minute. Other medications were reviewed as well. Allergies; none. Social history; noncontributory. Family history; noncontributory. Occupational history; patient is on disability. Review of systems; denies any headache, seizures, visual changes. Any chest pain, angina, wheezing, cough, hemoptysis. Denies any further abdominal pain. Any nausea vomiting. Any hematemesis, any melena or hematochezia. Complains of mild weight loss. Denies any orthopnea. Complains of easy skin bruising. General exam; young female, awake alert, laying comfortably in bed. Currently no distress. Date/Time of Note DATE: 10/06/18 TIME: 10:30 Past Medical History Medical History: colitis, hepatitis Home Meds Active Scripts Lubiprostone* (Amitiza*) 24 Mcg Capsule, 24 MCG PO BID for 30 Days, #60 CAP Prov:LOUIE RUIZ MD 08/23/18 Lactulose* (Lactulose*) 20 Gm/30 Ml Solution, 10 GM PO DAILY for 30 Days, #1 BOTTLE Prov:LOUIE RUIZ MD 08/23/18 Furosemide (Lasix) 20 Mg Tab, 20 MG PO DAILY for 30 Days, #30 TAB 6 Refills Prov:LOUIE RUIZ MD 08/23/18 Ondansetron (Ondansetron Odt) 4 Mg Tab.rapdis, 4 MG PO Q6H PRN for NAUSEA AND/OR VOMITING, #10 TAB Prov:ALEXANDRIA QUIROGA MD 06/14/18 Reported Medications Furosemide* (Furosemide*) 20 Mg Tablet, 20 MG PO DAILY for 30 Days 10/06/18 Hydromorphone Hcl (Dilaudid) 4 Mg Tab, 4 MG PO DAILY 09/26/18 Lorazepam* (Lorazepam*) 0.5 Mg Tablet, 0.5 MG PO DAILY for 30 Days 09/26/18 Zolpidem Tartrate* (Zolpidem Tartrate*) 5 Mg Tablet, 5 MG PO QHS 09/26/18 Midodrine* (Midodrine*) 5 Mg Tablet, 5 MG PO DAILY 09/26/18 Potassium Chloride* (K-Dur*) 20 Meq Tab.prt.sr, 20 MEQ PO DAILY for 30 Days 09/26/18 Albuterol Sulfate* (Ventolin HFA*) 18 Gm Hfa.aer.ad, 2 PUFF INHALATION Q4H, #1 INHALER 06/28/18 Spironolactone* (Aldactone*) 100 Mg Tablet, 100 MG PO BID, #60 TAB 05/15/18 Medications Current Medications Vancomycin HCl (Vanco Iv Per Pharmacy) VANCOMYCIN PER PHARMACY PER PROTOCOL XX ; Start 10/05/18 at 23:00 Norepinephrine 250 ml @ 1.875 mls/ hr TITRATE IV Last administered on 10/06/18at 08:32; Admin Dose 56.25 MLS/HR; Start 10/05/18 at 23:30 Vancomycin HCl 1.25 gm/Sodium Chloride 250 ml @ 83.333 mls/ hr Q12H IVPB ; Start 10/06/18 at 13:00 Vasopressin 60 unit/Sodium Chloride 60 ml @ 2.4 mls/hr ONCE STAT IV Last administered on 10/06/18at 02:00; Admin Dose 2.4 MLS/HR; Start 10/06/18 at 01:04; Stop 10/07/18 at 02:03 Sodium Bicarbonate 150 meq/Dextrose 1,000 ml @ 100 mls/hr Q10H IV Last administered on 10/06/18at 02:17; Admin Dose 100 MLS/HR; Start 10/06/18 at 01:30 Ondansetron HCl (Zofran Inj) 4 mg Q6H PRN IV NAUSEA AND/OR VOMITING; Start 10/06/18 at 01:30 Acetaminophen (Tylenol Liquid) 650 mg Q6H PRN PO PAIN LEVEL 1-3 OR FEVER; Start 10/06/18 at 01:30 Morphine Sulfate (morphine) 1 mg Q4H PRN IV PAIN LEVEL 7-10 Last administered on 10/06/18at 04:32; Admin Dose 1 MG; Start 10/06/18 at 01:30 Pantoprazole (Protonix Iv) 40 mg DAILY@06 IV Last administered on 10/06/18at 05:30; Admin Dose 40 MG; Start 10/06/18 at 06:00 Hydrocortisone (Solu-Cortef) 100 mg Q8 IV Last administered on 10/06/18at 05:30; Admin Dose 100 MG; Start 10/06/18 at 06:00 Phenylephrine HCl 40 mg/Dextrose 250 ml @ 37.5 mls/hr TITRATE IV Last administered on 10/06/18at 06:03; Admin Dose 37.5 MLS/HR; Start 10/06/18 at 05:00 Lactulose (Enulose) 20 gm Q8 PO ; Start 10/06/18 at 09:00 Rifaximin (Xifaxan) 550 mg BID PO ; Start 10/06/18 at 09:00 Amikacin Sulfate (Amikacin Iv Per Pharmacy) AMIKACIN PER PHARMACY NOTE XX ; Start 10/06/18 at 09:30 Phytonadione 10 mg/Dextrose 51 ml @ 102 mls/hr ONCE ONCE IVPB ; Start 10/06/18 at 11:00; Stop 10/06/18 at 11:29 Amikacin Sulfate 1000 mg/Sodium Chloride 104 ml @ 104 mls/hr Q24H IVPB ; Start 10/06/18 at 12:00 Amikacin Sulfate 1000 mg/Sodium Chloride 104 ml @ 104 mls/hr Q24H IVPB ; Start 10/06/18 at 10:30; Status UNV Meropenem/Sodium Chloride 50 ml @ 100 mls/hr Q8 IVPB ; Start 10/06/18 at 10:30; Status UNV Vasopressin 60 unit/Dextrose 60 ml @ 0 mls/hr Q12H IV ; Start 10/06/18 at 10:30; Status UNV Allergies: Coded Allergies: No Known Allergy (Unverified , 10/06/18) Past Surgical History Past Surgical Hx: other (Unknown) Social History Alcohol Use: sober Smoking Status: Former smoker Drug Use: none Exam/Review of Systems Exam Vitals Vital Signs Date Temp Pulse Resp B/P (MAP) Pulse Ox O2 O2 Flow FiO2 Time Delivery Rate 10/06/18 131 22 99 06:45 10/06/18 98.0 06:30 10/06/18 98/57 (71) Room Air 06:00 10/06/18 4.0 00:16 Intake and Output 10/05/18 10/05/18 10/06/18 1515:00 23:00 07:00 IntakeIntake Total 600 ml BalanceBalance 600 ml Exam H EENT exam; supple neck, no JVD. Patient is strongly icteric. There is crusting of blood in the oral cavity. No active bleeding seen. Dentition is fair. No neck masses. Pupils are small bilaterally. Chest exam; diminished but clear breath sounds. S1-S2 audible, no murmurs. Regular rhythm. Abdomen exam; soft, bowel sounds audible. Nontender. No organomegaly. Extremity exam; no peripheral edema. Patient does have multiple ecchymosis. 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 No tremor. Results Result Diagram: 10/06/18 0836 10/06/18 0836 Results 24hrs Laboratory Tests Test 10/05/18 19:03 10/05/18 19:06 10/05/18 19:50 10/05/18 20:23 White Blood Count 1.4 #L Red Blood Count 2.64 L Hemoglobin 9.4 L Hematocrit 27.4 L Mean Corpuscular 103.8 H Volume Mean Corpuscular 35.6 H Hemoglobin Mean Corpuscular 34.3 Hemoglobin Concen t Red Cell 20.4 H Distribution Width Platelet Count 61 #L Mean Platelet 8.8 Volume Immature 0.000 L Granulocytes % Neutrophils % Segmented 52 Neutrophils % (Manual) Band Neutrophils 19 H % (Manual) Lymphocytes % Lymphocytes % 23 (Manual) Monocytes % Monocytes % 3 (Manual) Eosinophils % Eosinophils % 1 (Manual) Myelocytes % 2 H (Manual) Nucleated Red 5 H Blood Cells % Immature 0.000 Granulocytes # Neutrophils # Neutrophils # 0.7 L (Manual) Band Neutrophils 0.2 # Lymphocytes 0.3 L (Manual) Lymphocytes # Monocytes # Monocytes # 0.0 L (Manual) Eosinophils # Myelocytes # 0.0 Pathologist YES Review (Hematolog y) Poikilocytosis 3+ Anisocytosis 1+ Microcytosis 1+ Prothrombin Time 33.0 H Prothrombin Time 2.6 Ratio INR International 3.23 Normalized Ratio Activated 42.8 H Partial Thrombopl ast Time Sodium Level 130 L Potassium Level 4.1 Chloride Level 99 Carbon Dioxide 17 L Level Anion Gap 14 H Blood Urea 11 Nitrogen Creatinine 0.74 Est Glomerular > 60 Filtrat Rate mL/min Glucose Level 78 Calcium Level 8.5 Total Bilirubin 12.7 H Direct Bilirubin 3.70 H Indirect 9.0 H Bilirubin Aspartate Amino 50 H Transf (AST/SGOT) Alanine 36 Aminotransferase (ALT/SGPT) Alkaline 92 Phosphatase Troponin I 0.020 Total Protein 5.8 L Albumin 2.4 L Globulin 3.40 H Albumin/Globulin 0.70 Ratio POC Venous 4.9 *H Lactate Urine Color KALEB Urine Clarity CLEAR Urine pH 5.0 Urine Specific 1.008 [place] Urine Ketones NEGATIVE Urine Nitrite NEGATIVE Urine Bilirubin NEGATIVE Urine NEGATIVE Urobilinogen Urine Leukocyte NEGATIVE Esterase Urine Hemoglobin NEGATIVE Urine Glucose NEGATIVE Urine Total NEGATIVE Protein Ammonia 35 #H Test 10/05/18 21:47 10/05/18 22:32 10/05/18 22:57 10/05/18 23:34 POC Venous 8.1 *H Lactate Body Fluid Type ASCITES Body Fluid Volume 45.0 Body Fluid Color ORANGE Body Fluid SLIGHTLY CLOUDY Appearance Body Fluid WBC 3527 Body Fluid RBC 49537 (Auto) Body Fluid 95.1 Polynuclear WBCs (%) Body Fluid 4.9 Mononuclear Cells % Auto Blood Gas Blood arterial Specimen Source Arterial Blood 10/05/2018 11:10:1 Date Drawn 3 PM Arterial Blood pH 7.320 L (Temp corrected) Arterial Blood 19.4 L pCO2 (Temp correct) Arterial Blood 92.5 pO2 (Temp corrected) Arterial Blood 9.8 *L HCO3 Arterial Blood -14.2 L Base Excess Arterial Blood 96.2 Oxygen Saturation Luke Test ACCEPTAB Arterial Blood Left Radial Gas Puncture Site Arterial 1.5 Blood Carboxyhemo globin Arterial Blood 0.5 Methemoglobin Blood Gas A-a O2 113.0 H Differential Oxyhemoglobin 94.3 Percent Blood Gas 37.0 Temperature Blood Gas NASAL CANNULA Modality FiO2 32.0 Blood Gas Allen HCAMPION MD Critical Value Read Back Blood Gas Notified Whom Blood Gas 10/05/2018 11:21:5 Notified Time 5 PM Lactic Acid Level 12.6 *H Test 10/06/18 08:36 White Blood Count 16.0 #H Red Blood Count 2.32 L Hemoglobin 8.4 L Hematocrit 28.4 L Mean Corpuscular 122.4 H Volume Mean Corpuscular 36.2 H Hemoglobin Mean Corpuscular 29.6 L Hemoglobin Concen t Red Cell 22.0 H Distribution Width Platelet Count 63 L Mean Platelet 10.5 H Volume Immature 1.000 H Granulocytes % Neutrophils % Segmented 39 Neutrophils % (Manual) Band Neutrophils 49 H % (Manual) Lymphocytes % Lymphocytes % 4 L (Manual) Monocytes % Monocytes % 3 (Manual) Eosinophils % Basophils % Metamyelocytes % 5 H (manual) Nucleated Red 1 H Blood Cells % Immature 0.160 H Granulocytes # Neutrophils # Neutrophils # 7.5 (Manual) Band Neutrophils 7.8 H # Lymphocytes 0.6 L (Manual) Lymphocytes # Monocytes # Monocytes # 0.4 (Manual) Eosinophils # Basophils # Metamyelocytes # 0.8 H Nucleated Red Blood Cells # Platelet Estimate DECREASED Polychromasia 1+ Poikilocytosis 3+ Anisocytosis 1+ Macrocytosis 1+ Spherocytes 2+ Prothrombin Time 59.4 #H Prothrombin Time 4.6 Ratio INR International 6.89 *H Normalized Ratio Activated 65.5 H Partial Thrombopl ast Time Sodium Level 132 L Potassium Level 4.0 Chloride Level 100 Carbon Dioxide 6 #*L Level Anion Gap 26 #H Blood Urea 13 Nitrogen Creatinine 1.16 H Est Glomerular 50 L Filtrat Rate mL/min Glucose Level 81 Lactic Acid Level 19.4 *H Calcium Level 7.8 L Total Bilirubin 15.6 H Direct Bilirubin 9.90 #H Indirect 5.7 H Bilirubin Aspartate Amino 93 H Transf (AST/SGOT) Alanine 35 Aminotransferase (ALT/SGPT) Alkaline 26 #L Phosphatase Total Protein 5.4 L Albumin 2.4 L Globulin 3.00 Albumin/Globulin 0.80 Ratio Medications Medication Current Medications Vancomycin HCl (Vanco Iv Per Pharmacy) VANCOMYCIN PER PHARMACY PER PROTOCOL XX ; Start 10/05/18 at 23:00 Norepinephrine 250 ml @ 1.875 mls/ hr TITRATE IV Last administered on 10/06/18at 08:32; Admin Dose 56.25 MLS/HR; Start 10/05/18 at 23:30 Vancomycin HCl 1.25 gm/Sodium Chloride 250 ml @ 83.333 mls/ hr Q12H IVPB ; Start 10/06/18 at 13:00 Vasopressin 60 unit/Sodium Chloride 60 ml @ 2.4 mls/hr ONCE STAT IV Last administered on 10/06/18at 02:00; Admin Dose 2.4 MLS/HR; Start 10/06/18 at 01:04; Stop 10/07/18 at 02:03 Sodium Bicarbonate 150 meq/Dextrose 1,000 ml @ 100 mls/hr Q10H IV Last administered on 10/06/18at 02:17; Admin Dose 100 MLS/HR; Start 10/06/18 at 01:30 Ondansetron HCl (Zofran Inj) 4 mg Q6H PRN IV NAUSEA AND/OR VOMITING; Start 10/06/18 at 01:30 Acetaminophen (Tylenol Liquid) 650 mg Q6H PRN PO PAIN LEVEL 1-3 OR FEVER; Start 10/06/18 at 01:30 Morphine Sulfate (morphine) 1 mg Q4H PRN IV PAIN LEVEL 7-10 Last administered on 10/06/18at 04:32; Admin Dose 1 MG; Start 10/06/18 at 01:30 Pantoprazole (Protonix Iv) 40 mg DAILY@06 IV Last administered on 10/06/18at 05:30; Admin Dose 40 MG; Start 10/06/18 at 06:00 Hydrocortisone (Solu-Cortef) 100 mg Q8 IV Last administered on 10/06/18at 05:30; Admin Dose 100 MG; Start 10/06/18 at 06:00 Phenylephrine HCl 40 mg/Dextrose 250 ml @ 37.5 mls/hr TITRATE IV Last administered on 10/06/18at 06:03; Admin Dose 37.5 MLS/HR; Start 10/06/18 at 05:00 Lactulose (Enulose) 20 gm Q8 PO ; Start 10/06/18 at 09:00 Rifaximin (Xifaxan) 550 mg BID PO ; Start 10/06/18 at 09:00 Amikacin Sulfate (Amikacin Iv Per Pharmacy) AMIKACIN PER PHARMACY NOTE XX ; Start 10/06/18 at 09:30 Phytonadione 10 mg/Dextrose 51 ml @ 102 mls/hr ONCE ONCE IVPB ; Start 10/06/18 at 11:00; Stop 10/06/18 at 11:29 Amikacin Sulfate 1000 mg/Sodium Chloride 104 ml @ 104 mls/hr Q24H IVPB ; Start 10/06/18 at 12:00 Amikacin Sulfate 1000 mg/Sodium Chloride 104 ml @ 104 mls/hr Q24H IVPB ; Start 10/06/18 at 10:30; Status UNV Meropenem/Sodium Chloride 50 ml @ 100 mls/hr Q8 IVPB ; Start 10/06/18 at 10:30; Status UNV Vasopressin 60 unit/Dextrose 60 ml @ 0 mls/hr Q12H IV ; Start 10/06/18 at 10:30; Status UNV REYES YOUSSEF October 06, 2018 10:34
[2018-10-06] MEDS: MEROPENEM 1 GM/50ML(PMX) 50 ML IVPB SCH ×3 (10:50→21:49)
[2018-10-06] MEDS ORDERED: PHYTONADIONE 10 MG in DEXTROSE 5% 50 ML IVPB ONE (11:00)
--- NOTE | 2018-10-06 11:00 | CONS ---
DATE OF ADMISSION: 10/05/2018 DATE OF CONSULTATION: TYPE OF CONSULTATION: GI consultation. REQUESTING PHYSICIAN: Emmanuel Champion MD. 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 In the ER, the patient was evaluated. A diagnosis of spontaneous ba cterial peritonitis made. Patient was started on ceftriaxone and admitted to intensive care unit for further management. She was interrogated by me in the ICU, patient denies taking and alcohol. She has been sober for the last many years. She is on a liver transplant list at [facility]. The patient had l ast abdominal paracentesis last week, almost 4.2 liters was removed. 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 PAST MEDICAL HISTORY: 1. Cirrhosis of liver. 2. Bipolar disorder. 3. Anxiety. PAST SURGICAL HISTORY: Status post breast implant which ruptured, status post paracentesis. SOCIAL HISTORY: Former smoker. MEDICATIONS: All reviewed. ALLERGIES: Reviewed. REVIEW OF SYSTEMS: Otherwise negative. PHYSICAL EXAMINATION GENERAL: Patient is alert, awake, communicating, slight slurred speech. Able to recognize me. CARDIOVASCULAR: No murmur, gallop or click. LUNGS: Air entry diminished at both the bases. No wheeze heard. ABDOMEN: Soft. The patient has got ascites. EXTREMITIES: No edema. CENTRAL NERVOUS SYSTEM: Grossly within normal limits. LABORATORY DATA: All reviewed. WBC count was 1.4 yesterday, today it is 16, hematocrit is 28. Plat elet count is 63. BUN and creatinine within normal limit. Lactic acid level was high at 12.6, total bilirubin is 12.7. Ammonia was 35. Albumin is 2.4. The patient is on pressure support medication. IMPRESSION: 1. Septic shock. 2. Possible spontaneous bacterial peritonitis. 3. Decompensated cirrhosis of liver. 4. Thrombocytopenia. 5. Coagulopathy. 6. Ascites. 7. Abdominal pain which may be related to spontaneous bacterial peritonitis. 8. Leukopenia. 9. Anemia. 10. History of Clostridium difficile colitis. PLAN: At this point, continue all supportive care. Vitamin K, continue antibiotic. Will send Ho[place] raya for a toxin and albumin to boost up the blood pressure. Once we are able to feed the patient and then will start the patient on lactulose and rifaximin. We will monitor INR and total bilirubin and WBC count closely. Dictated By: TRISTIAN CHOPRA/NTS Conf#: [id number] DID#: [id number] CC: MARIA DEL CARMEN BENITES MD; JUAN RAMON FOWLER MD; EMMANUEL CHAMPION MD;*End*
[2018-10-06] MEDS: VASOPRESSIN 60 UNIT in DEXTROSE 5% 57 ML IV SCH ×2 (11:17→23:00)
--- NOTE | 2018-10-06 13:01 | PN ---
Date/Time of Note Date/Time of Note DATE: 10/06/18 TIME: 12:59 Assessment/Plan VTE Prophylaxis SCD applied (from Nsg): Yes Pharmacological prophylaxis: heparin Lines/Catheters IV Catheter Type (from Nrsg): [place] line still needed: Yes Urinary Cath still in place: Yes Reason Cath still needed: urinary retention Assessment/Plan Hospital Course Alert, interactive Mucosal bleeding in gums Tachy, regular Jaundiced diffusely Lungs clear Abdomen a bit tender, distended A/P: 48 yo female with etoh cirrhosis presents with septic shock Septic shock: - GNR bacteremia -> double GNR coverage with merrem and amikacin - Vasopressors to MAP > 65 - IV fluids, albumin Coagulapathy wtih INR 6: - Vitamin K PATTIE: - Likely ATN, sepsis, prerenal, give albumin. octreotide per GI Cirrhosis; - Lactulose if tolerates Lactic acidosis, treat shock as above Gravely ill with poor progonsis. Palliative following. DNR Result Diagram: 10/06/18 0836 10/06/18 0836 Results 24hrs Laboratory Tests Test 10/05/18 19:03 10/05/18 19:06 10/05/18 19:50 10/05/18 20:23 White Blood Count 1.4 #L Red Blood Count 2.64 L Hemoglobin 9.4 L Hematocrit 27.4 L Mean Corpuscular 103.8 H Volume Mean Corpuscular 35.6 H Hemoglobin Mean Corpuscular 34.3 Hemoglobin Concen t Red Cell 20.4 H Distribution Width Platelet Count 61 #L Mean Platelet 8.8 Volume Immature 0.000 L Granulocytes % Neutrophils % Segmented 52 Neutrophils % (Manual) Band Neutrophils 19 H % (Manual) Lymphocytes % Lymphocytes % 23 (Manual) Monocytes % Monocytes % 3 (Manual) Eosinophils % Eosinophils % 1 (Manual) Myelocytes % 2 H (Manual) Nucleated Red 5 H Blood Cells % Immature 0.000 Granulocytes # Neutrophils # Neutrophils # 0.7 L (Manual) Band Neutrophils 0.2 # Lymphocytes 0.3 L (Manual) Lymphocytes # Monocytes # Monocytes # 0.0 L (Manual) Eosinophils # Myelocytes # 0.0 Pathologist YES Review (Hematolog y) Poikilocytosis 3+ Anisocytosis 1+ Microcytosis 1+ Prothrombin Time 33.0 H Prothrombin Time 2.6 Ratio INR International 3.23 Normalized Ratio Activated 42.8 H Partial Thrombopl ast Time Sodium Level 130 L Potassium Level 4.1 Chloride Level 99 Carbon Dioxide 17 L Level Anion Gap 14 H Blood Urea 11 Nitrogen Creatinine 0.74 Est Glomerular > 60 Filtrat Rate mL/min Glucose Level 78 Calcium Level 8.5 Total Bilirubin 12.7 H Direct Bilirubin 3.70 H Indirect 9.0 H Bilirubin Aspartate Amino 50 H Transf (AST/SGOT) Alanine 36 Aminotransferase (ALT/SGPT) Alkaline 92 Phosphatase Troponin I 0.020 Total Protein 5.8 L Albumin 2.4 L Globulin 3.40 H Albumin/Globulin 0.70 Ratio POC Venous 4.9 *H Lactate Urine Color KALEB Urine Clarity CLEAR Urine pH 5.0 Urine Specific 1.008 Jonancy Urine Ketones NEGATIVE Urine Nitrite NEGATIVE Urine Bilirubin NEGATIVE Urine NEGATIVE Urobilinogen Urine Leukocyte NEGATIVE Esterase Urine Hemoglobin NEGATIVE Urine Glucose NEGATIVE Urine Total NEGATIVE Protein Ammonia 35 #H Test 10/05/18 21:47 10/05/18 22:32 10/05/18 22:57 10/05/18 23:34 POC Venous 8.1 *H Lactate Body Fluid Type ASCITES Body Fluid Volume 45.0 Body Fluid Color ORANGE Body Fluid SLIGHTLY CLOUDY Appearance Body Fluid WBC 3527 Body Fluid RBC 14470 (Auto) Body Fluid 95.1 Polynuclear WBCs (%) Body Fluid 4.9 Mononuclear Cells % Auto Blood Gas Blood arterial Specimen Source Arterial Blood 10/05/2018 11:10:1 Date Drawn 3 PM Arterial Blood pH 7.320 L (Temp corrected) Arterial Blood 19.4 L pCO2 (Temp correct) Arterial Blood 92.5 pO2 (Temp corrected) Arterial Blood 9.8 *L HCO3 Arterial Blood -14.2 L Base Excess Arterial Blood 96.2 Oxygen Saturation Luke Test ACCEPTAB Arterial Blood Left Radial Gas Puncture Site Arterial 1.5 Blood Carboxyhemo globin Arterial Blood 0.5 Methemoglobin Blood Gas A-a O2 113.0 H Differential Oxyhemoglobin 94.3 Percent Blood Gas 37.0 Temperature Blood Gas NASAL CANNULA Modality FiO2 32.0 Blood Gas Allen CHAMPION MD Critical Value Read Back Blood Gas Notified Whom Blood Gas 10/05/2018 11:21:5 Notified Time 5 PM Lactic Acid Level 12.6 *H Test 10/06/18 08:36 White Blood Count 16.0 #H Red Blood Count 2.32 L Hemoglobin 8.4 L Hematocrit 28.4 L Mean Corpuscular 122.4 H Volume Mean Corpuscular 36.2 H Hemoglobin Mean Corpuscular 29.6 L Hemoglobin Concen t Red Cell 22.0 H Distribution Width Platelet Count 63 L Mean Platelet 10.5 H Volume Immature 1.000 H Granulocytes % Neutrophils % Segmented 39 Neutrophils % (Manual) Band Neutrophils 49 H % (Manual) Lymphocytes % Lymphocytes % 4 L (Manual) Monocytes % Monocytes % 3 (Manual) Eosinophils % Basophils % Metamyelocytes % 5 H (manual) Nucleated Red 1 H Blood Cells % Immature 0.160 H Granulocytes # Neutrophils # Neutrophils # 7.5 (Manual) Band Neutrophils 7.8 H # Lymphocytes 0.6 L (Manual) Lymphocytes # Monocytes # Monocytes # 0.4 (Manual) Eosinophils # Basophils # Metamyelocytes # 0.8 H Nucleated Red Blood Cells # Platelet Estimate DECREASED Polychromasia 1+ Poikilocytosis 3+ Anisocytosis 1+ Macrocytosis 1+ Spherocytes 2+ Prothrombin Time 59.4 #H Prothrombin Time 4.6 Ratio INR International 6.89 *H Normalized Ratio Activated 65.5 H Partial Thrombopl ast Time Sodium Level 132 L Potassium Level 4.0 Chloride Level 100 Carbon Dioxide 6 #*L Level Anion Gap 26 #H Blood Urea 13 Nitrogen Creatinine 1.16 H Est Glomerular 50 L Filtrat Rate mL/min Glucose Level 81 Lactic Acid Level 19.4 *H Calcium Level 7.8 L Total Bilirubin 15.6 H Direct Bilirubin 9.90 #H Indirect 5.7 H Bilirubin Aspartate Amino 93 H Transf (AST/SGOT) Alanine 35 Aminotransferase (ALT/SGPT) Alkaline 26 #L Phosphatase Total Protein 5.4 L Albumin 2.4 L Globulin 3.00 Albumin/Globulin 0.80 Ratio Random Cortisol > 123.0 Subjective 24 Hr Interval Summary Free Text/Dictation Gravely ill in shock on mulitple vasopressors Exam/Review of Systems Exam Vitals Vital Signs Date Temp Pulse Resp B/P (MAP) Pulse Ox O2 O2 Flow FiO2 Time Delivery Rate 10/06/18 113 08:00 10/06/18 22 99 06:45 10/06/18 98.0 06:30 10/06/18 98/57 (71) Room Air 06:00 10/06/18 4.0 00:16 Intake and Output 10/05/18 10/05/18 10/06/18 1515:00 23:00 07:00 IntakeIntake Total 600 ml BalanceBalance 600 ml Results Results 24hrs Laboratory Tests Test 10/05/18 19:03 10/05/18 19:06 10/05/18 19:50 10/05/18 20:23 White Blood Count 1.4 #L Red Blood Count 2.64 L Hemoglobin 9.4 L Hematocrit 27.4 L Mean Corpuscular 103.8 H Volume Mean Corpuscular 35.6 H Hemoglobin Mean Corpuscular 34.3 Hemoglobin Concen t Red Cell 20.4 H Distribution Width Platelet Count 61 #L Mean Platelet 8.8 Volume Immature 0.000 L Granulocytes % Neutrophils % Segmented 52 Neutrophils % (Manual) Band Neutrophils 19 H % (Manual) Lymphocytes % Lymphocytes % 23 (Manual) Monocytes % Monocytes % 3 (Manual) Eosinophils % Eosinophils % 1 (Manual) Myelocytes % 2 H (Manual) Nucleated Red 5 H Blood Cells % Immature 0.000 Granulocytes # Neutrophils # Neutrophils # 0.7 L (Manual) Band Neutrophils 0.2 # Lymphocytes 0.3 L (Manual) Lymphocytes # Monocytes # Monocytes # 0.0 L (Manual) Eosinophils # Myelocytes # 0.0 Pathologist YES Review (Hematolog y) Poikilocytosis 3+ Anisocytosis 1+ Microcytosis 1+ Prothrombin Time 33.0 H Prothrombin Time 2.6 Ratio INR International 3.23 Normalized Ratio Activated 42.8 H Partial Thrombopl ast Time Sodium Level 130 L Potassium Level 4.1 Chloride Level 99 Carbon Dioxide 17 L Level Anion Gap 14 H Blood Urea 11 Nitrogen Creatinine 0.74 Est Glomerular > 60 Filtrat Rate mL/min Glucose Level 78 Calcium Level 8.5 Total Bilirubin 12.7 H Direct Bilirubin 3.70 H Indirect 9.0 H Bilirubin Aspartate Amino 50 H Transf (AST/SGOT) Alanine 36 Aminotransferase (ALT/SGPT) Alkaline 92 Phosphatase Troponin I 0.020 Total Protein 5.8 L Albumin 2.4 L Globulin 3.40 H Albumin/Globulin 0.70 Ratio POC Venous 4.9 *H Lactate Urine Color KALEB Urine Clarity CLEAR Urine pH 5.0 Urine Specific 1.008 Jonancy Urine Ketones NEGATIVE Urine Nitrite NEGATIVE Urine Bilirubin NEGATIVE Urine NEGATIVE Urobilinogen Urine Leukocyte NEGATIVE Esterase Urine Hemoglobin NEGATIVE Urine Glucose NEGATIVE Urine Total NEGATIVE Protein Ammonia 35 #H Test 10/05/18 21:47 10/05/18 22:32 10/05/18 22:57 10/05/18 23:34 POC Venous 8.1 *H Lactate Body Fluid Type ASCITES Body Fluid Volume 45.0 Body Fluid Color ORANGE Body Fluid SLIGHTLY CLOUDY Appearance Body Fluid WBC 3527 Body Fluid RBC 37718 (Auto) Body Fluid 95.1 Polynuclear WBCs (%) Body Fluid 4.9 Mononuclear Cells % Auto Blood Gas Blood arterial Specimen Source Arterial Blood 10/05/2018 11:10:1 Date Drawn 3 PM Arterial Blood pH 7.320 L (Temp corrected) Arterial Blood 19.4 L pCO2 (Temp correct) Arterial Blood 92.5 pO2 (Temp corrected) Arterial Blood 9.8 *L HCO3 Arterial Blood -14.2 L Base Excess Arterial Blood 96.2 Oxygen Saturation Luke Test ACCEPTAB Arterial Blood Left Radial Gas Puncture Site Arterial 1.5 Blood Carboxyhemo globin Arterial Blood 0.5 Methemoglobin Blood Gas A-a O2 113.0 H Differential Oxyhemoglobin 94.3 Percent Blood Gas 37.0 Temperature Blood Gas NASAL CANNULA Modality FiO2 32.0 Blood Gas Allen CHAMPION MD Critical Value Read Back Blood Gas Notified Whom Blood Gas 10/05/2018 11:21:5 Notified Time 5 PM Lactic Acid Level 12.6 *H Test 10/06/18 08:36 White Blood Count 16.0 #H Red Blood Count 2.32 L Hemoglobin 8.4 L Hematocrit 28.4 L Mean Corpuscular 122.4 H Volume Mean Corpuscular 36.2 H Hemoglobin Mean Corpuscular 29.6 L Hemoglobin Concen t Red Cell 22.0 H Distribution Width Platelet Count 63 L Mean Platelet 10.5 H Volume Immature 1.000 H Granulocytes % Neutrophils % Segmented 39 Neutrophils % (Manual) Band Neutrophils 49 H % (Manual) Lymphocytes % Lymphocytes % 4 L (Manual) Monocytes % Monocytes % 3 (Manual) Eosinophils % Basophils % Metamyelocytes % 5 H (manual) Nucleated Red 1 H Blood Cells % Immature 0.160 H Granulocytes # Neutrophils # Neutrophils # 7.5 (Manual) Band Neutrophils 7.8 H # Lymphocytes 0.6 L (Manual) Lymphocytes # Monocytes # Monocytes # 0.4 (Manual) Eosinophils # Basophils # Metamyelocytes # 0.8 H Nucleated Red Blood Cells # Platelet Estimate DECREASED Polychromasia 1+ Poikilocytosis 3+ Anisocytosis 1+ Macrocytosis 1+ Spherocytes 2+ Prothrombin Time 59.4 #H Prothrombin Time 4.6 Ratio INR International 6.89 *H Normalized Ratio Activated 65.5 H Partial Thrombopl ast Time Sodium Level 132 L Potassium Level 4.0 Chloride Level 100 Carbon Dioxide 6 #*L Level Anion Gap 26 #H Blood Urea 13 Nitrogen Creatinine 1.16 H Est Glomerular 50 L Filtrat Rate mL/min Glucose Level 81 Lactic Acid Level 19.4 *H Calcium Level 7.8 L Total Bilirubin 15.6 H Direct Bilirubin 9.90 #H Indirect 5.7 H Bilirubin Aspartate Amino 93 H Transf (AST/SGOT) Alanine 35 Aminotransferase (ALT/SGPT) Alkaline 26 #L Phosphatase Total Protein 5.4 L Albumin 2.4 L Globulin 3.00 Albumin/Globulin 0.80 Ratio Random Cortisol > 123.0 Medications Medication Current Medications Vancomycin HCl (Vanco Iv Per Pharmacy) VANCOMYCIN PER PHARMACY PER PROTOCOL XX ; Start 10/05/18 at 23:00 Norepinephrine 250 ml @ 1.875 mls/ hr TITRATE IV Last administered on 10/06/18at 12:49; Admin Dose 56.25 MLS/HR; Start 10/05/18 at 23:30 Vancomycin HCl 1.25 gm/Sodium Chloride 250 ml @ 83.333 mls/ hr Q12H IVPB ; Start 10/06/18 at 13:00 Sodium Bicarbonate 150 meq/Dextrose 1,000 ml @ 100 mls/hr Q10H IV Last administered on 10/06/18at 02:17; Admin Dose 100 MLS/HR; Start 10/06/18 at 01:30 Ondansetron HCl (Zofran Inj) 4 mg Q6H PRN IV NAUSEA AND/OR VOMITING; Start 10/06 at 01:30 Acetaminophen (Tylenol Liquid) 650 mg Q6H PRN PO PAIN LEVEL 1-3 OR FEVER; Start 10/06/18 at 01:30 Morphine Sulfate (morphine) 1 mg Q4H PRN IV PAIN LEVEL 7-10 Last administered on 10/06/18at 04:32; Admin Dose 1 MG; Start 10/06/18 at 01:30 Pantoprazole (Protonix Iv) 40 mg DAILY@06 IV Last administered on 10/06/18at 05:30; Admin Dose 40 MG; Start 10/06/18 at 06:00 Hydrocortisone (Solu-Cortef) 100 mg Q8 IV Last administered on 10/06/18at 05:30; Admin Dose 100 MG; Start 10/06/18 at 06:00 Phenylephrine HCl 40 mg/Dextrose 250 ml @ 37.5 mls/hr TITRATE IV Last administered on 10/06/18at 10:25; Admin Dose 112.5 MLS/HR; Start 10/06/18 at 05:00 Lactulose (Enulose) 20 gm Q8 PO ; Start 10/06/18 at 09:00 Rifaximin (Xifaxan) 550 mg BID PO ; Start 10/06/18 at 09:00 Amikacin Sulfate (Amikacin Iv Per Pharmacy) AMIKACIN PER PHARMACY NOTE XX ; Start 10/06/18 at 09:30 Amikacin Sulfate 1000 mg/Sodium Chloride 104 ml @ 104 mls/hr Q24H IVPB Last administered on 10/06/18at 11:07; Admin Dose 104 MLS/HR; Start 10/06/18 at 11:00 Meropenem/Sodium Chloride 50 ml @ 100 mls/hr Q8 IVPB Last administered on 10/06/18at 10:50; Admin Dose 100 MLS/HR; Start 10/06/18 at 10:30 Vasopressin 60 unit/Dextrose 60 ml @ 1.2 mls/hr Q12H IV Last administered on 10/06/18at 11:17; Admin Dose 2.4 MLS/HR; Start 10/06/18 at 11:00 MARIA DEL CARMEN BENITES MD October 06, 2018 13:01
[2018-10-06] MEDS: VANCOMYCIN HCL 1.25 GM in SOD CHLORIDE 0.9% 250 ML IVPB SCH (14:31)
[2018-10-06] MEDS ORDERED: morphine 2 MG INJ IV PRN (15:00)
[2018-10-06] MEDS ORDERED: NORepinephrine 32 MG in DEXTROSE 5% 218 ML IV SCH (20:00)
[2018-10-06] MEDS ORDERED: PHENYLephrine 80 MG in DEXTROSE 5% 242 ML IV SCH (20:00)
[2018-10-06] MEDS ORDERED: BALSAM PERU/CASTOR OIL 60 GM TUBE TOP SCH (21:00)
[2018-10-06] MEDS ORDERED: BISACODYL 10 MG SUPP PR ONE (22:30)
[2018-10-07] VITALS (17 sets, daily range): BP systolic 49–115; BP diastolic 16–92; PULSE 0–118; RESP 11–32
[2018-10-07] MEDS: SODIUM BICARBONATE (IV ADD) 150 MEQ in DEXTROSE 5% 1,000 ML IV SCH (00:23)
[2018-10-07] MEDS ORDERED: morphine 2 MG INJ IV STA (00:29)
[2018-10-07] MEDS ORDERED: HYDROmorphONE 0.5 MG/0.5 ML SYG IV STA (00:31)
--- NOTE | 2018-10-07 00:53 | QN ---
Documentation Comment Spoke to patient's mother over the phone as patient is in severe pain and uncomfortable. I did discus giving her naroctic pain meds, however it would likely affect her blood pressures. Mom wants to help take away her pain and suffering. She at the current time is ok with us trying to relieve her pain while continuing medical management. I did discuss hospice/comfort care with the mother as well, she is going to think about this. At the meantime will give patient dilaudid as morphine was not helping. Continue current treatment.. REMY CHAMPION October 07, 2018 00:53
[2018-10-07] MEDS ORDERED: HYDROmorphONE 1 MG/ML SYG IV PRN (01:00)
[2018-10-07] MEDS ORDERED: FUROSEMIDE 20 MG INJ IV ONE (01:00)
[2018-10-07] MEDS ORDERED: HYDROmorphONE 0.5 MG/0.5 ML SYG IV PRN (01:00)
[2018-10-07] MEDS ORDERED: EPINEPHrine 4 MG in SOD CHLORIDE 0.9% 246 ML IV SCH (01:00)
[2018-10-07] MEDS: VANCOMYCIN HCL 1.25 GM in SOD CHLORIDE 0.9% 250 ML IVPB SCH (01:19)
[2018-10-07] MEDS ORDERED: HYDROmorphONE 2 MG/ML SYG IV STA (01:49)
--- NOTE | 2018-10-07 01:55 | QN ---
Documentation Comment Spoke family including patients mother at the bedside. Explained patients condition to the family. She remains hypotensive despite 4 vaspressors. She remains in severe pain. Family at this point have decided to proceed with comfort measures and to withdraw care. They would like to relieve her suffering. They will be requesting a early childhood teacher to come visit the patient. Until then we will continue current course of action and not escalate care aside from increasing her pain medications. If a early childhood teacher is not available soon, they would like to proceed with comfort measures sooner. The family will let us know regarding the early childhood teacher. In the meantime Morphine drip prn ativan, and sublingual atropine will be ordered and kept on standby until the early childhood teacher comes or family asks us to proceed. ICU charge nurse and RN are aware and family is in agreement with the plan. REMY CHAMPION October 07, 2018 01:55
[2018-10-07] MEDS ORDERED: LORAZEPAM 2 MG INJ IV PRN (02:00)
[2018-10-07] MEDS ORDERED: morphine (DRIP) 100 MG/100 ML 100 ML IV SCH (02:00)
[2018-10-07] MEDS ORDERED: ATROPINE SULFATE 1% 5ML SL PRN (02:00)
--- NOTE | 2018-10-07 04:55 | EN ---
Date/Time of Note Date/Time of Note DATE: 10/07/18 TIME: 04:54 Event Note Medicine Medicine Event Note Pronouncement note Patient seen and examined at the bedside. Patient nonresponsive to verbal commands. Patient nonresponsive to vigorous sternal rub. Pupils fixed and nonreactive to light bilaterally. No heart sounds appreciated on auscultation. property assessment monitor showing asystole. Patient pronounced at approximately 4:49 AM. Family present at the bedside. Primary team aware. REMY CHAMPION October 07, 2018 04:55
--- NOTE | 2018-10-07 05:18 | DES ---
Date/Time of Note Date/Time of Note DATE: 10/07/18 TIME: 04:56 Discharge/ Summary Admission/Discharge Info Admit Date/Time October 05, 2018 at 22:27 Final Diagnosis Septic shock secondary to spontaneous bacterial peritonitis, gram-negative bacteremia Decompensated alcoholic liver cirrhosis Hepatic encephalopathy Profound metabolic acidosis and lactic acidosis Pancytopenia Coagulopathy Chronic anemia Preliminary Cause of Septic shock secondary to spontaneous bacterial peritonitis, gram-negative bacteremia Decompensated alcoholic liver cirrhosis Hepatic encephalopathy Profound metabolic acidosis and lactic acidosis Pancytopenia Coagulopathy Chronic anemia Admit History cc: fevers, ab pain x 1 day 48-year-old female with a history of end-stage liver disease due to alcoholic cirrhosis brought in by ambulance from [facility] for abdominal pain and fever. Patient states that her last paracentesis was 1 week ago. She is complaining of diffuse abdominal pain. She denies any vomiting but has dried blood around her lips and tongue. She appears icteric and abdomen is distended. She does appear to be in distress from abdominal pain. She is able to answer some questions however she does appear slightly confused. She has multiple petechiae and bruising of her skin. Patient had a bedside paracentesis performed by the ED physician with the fluid sent to the labs for suspected SBP. On examination patient was noted to be febrile tachycardic and had blood pr essure in systolic of the 80s. Allergies: NKDA medications: See MAR Hospital Course 48-year-old female being admitted to the ICU floor for: #1 septic shock: Secondary to suspected SBP, possible pneumonia. Broad-spectrum antibiotics. Patient will be having a central line placed and then will be initiated on vasopressor support. Will trend lactic acid levels. Initially was before. Patient does appear to be volume depleted we will also give a bolus of normal saline and albumin. Cultures are pending. We will hold off on diuretics at the current time given patient's hypotension. #2 hepatic encephalopathy: Patient does appear to be slightly confused, ammonia level is 45. Lactulose and rifaximin as tolerated. #3 suspect SBP: Patient did have a diagnostic tap in the ED, we will await fluid analysis. Currently on broad-spectrum antibiotics including ceftriaxone follow- up fluid analysis. #4 Possible healthcare associated pneumonia: Chest x-ray shows signs concerning for possible healthcare associated pneumonia. Again broad-spectrum antibiotics. Cultures are pending. #5 metabolic acidosis: Multifactorial secondary to underlying becomes alcoholic cirrhosis, septic shock. Patient's bicarbonate BG is 9. She also has a significant lactic acidosis. Will initiate patient on bicarb drip at 100 cc an hour. Consult nephrology. #6 decompensated alcoholic liver cirrhosis: Patient has had multiple paracentesis in the past. Bilirubin 12. Patient is jaundiced. Continue l actulose, rifaximin. Consult GI Dr. sharp. #7 hyponatremia: Secondary to decompensated alcoholic liver cirrhosis. Patient at the current time does appear to be intravascularly depleted. Will hydrate patient gently. #8 anemia secondary to liver disease, chronic. No signs of active bleeding. Protonix IV #9 coagulopathy: Secondary to decompensated alcohol liver cirrhosis with possible worsening with septic shock. Follow coag studies. She did receive a dose of vitamin K 10 mg she did have a paracentesis performed. #10 pancytopenia: Secondary to underlying decompensated alcoholic liver cirrhosis as well as worsened by underlying septic shock. Neutropenic precautions. Broad-spectrum antibiotics. Avoid anticoagulation. SCDs #11 DVT GI prophylaxis: SCDs, Protonix Greater than 45 minutes critical care time spent in the care management this patient. Prognosis: poor Code status: full code, will consult palliative care dr. butterfield Patient had a central line placed in the emergency department. She was given albumin. She was continued on broad-spectrum antibiotic therapy. Despite this patient's blood pressure persisted to be hypotensive. She was initiated on vasopressor support. She was maintained on sodium bicarbonate drip for profound metabolic acidosis and lactic acidosis. She was also given steroids in the setting of septic shock. Patient was eventually transferred to the ICU and continued on aggressive therapy. She was seen by multiple specialists including pulmonology, gastroenterology, palliative care, and nephrology. Blood cultures grew gram-negative evelyn bacteremia, for which double coverage antibiotics were given, meropenem, amikacin. Throughout patient's hospital course she continued to be in pain likely from her abdominal distention from her ascites/SBP secondary to her decompensated liver cirrhosis. Medications were given for pain relief in a careful fashion in the setting of septic shock. Despite aggressive therapy, patient's condition continued to worsen. Discussion was had between the patient's mother and Dr. Balderas of palliative care and decision was made to make the patient a DNR/DNI. Through the course of the morning of 10/07/2018 patient continued to complain of ongoing pain in her abdomen. At this point I did discuss with the patient's mother regarding her clinical condition and the mother wanted to continue at that time the current care however she did want for us to provide pain medications with the understanding that this likely may worsen the blood press ure. Patient eventually required 4 vasopressors for blood pressure support and despite this her mean arterial pressure remained well below 65. Family did come to the bedside including the mother and after seeing the patient and discussing the patient's condition at length with myself and the RN the family did come to the decision of withdrawing care and making the patient comfortable. They did not want the patient to be suffering any longer. Patient's CODE STATUS was changed to comfort care. She was initiated on a morphine drip PRN Ativan, PRN atropine, with discontinuation of all other treatment. She was made comfortable with morphine drip and patient with family at the bedside and most pronounced at 4:49 AM. Pending Labs/Cultures Laboratory Tests Test 10/06/18 08:36 10/06/18 13:54 10/06/18 15:00 10/06/18 20:03 White Blood 16.0 Count 10^3/ul (4.8-10 .8) Red Blood 2.32 Count 10^6/ul (4.20-5 .40) Hemoglobin 8.4 g/dl (12.0-16.0 ) Hematocrit 28.4 % (37.0-47.0) Mean 122.4 Corpuscular fl (82.0-101.0) Volume Mean 36.2 Corpuscular pg (29.0-33.0) Hemoglobin Mean 29.6 Corpuscular g/dl (32.0-37.0 Hemoglobin Conc ) ent Red Cell 22.0 Distribution % (11.5-14.5) Width Platelet Count 63 10^3/UL (140-41 5) Mean Platelet 10.5 Volume fl (7.4-10.4) Immature 1.000 Granulocytes % % (0.001-0.429) Neutrophils % % (39.0-77.0) Segmented 39 % (39-77) Neutrophils % (Manual) Band 49 % (0-4) Neutrophils % (Manual) Lymphocytes % % (15.0-51.0) Lymphocytes % 4 % (15-51) (Manual) Monocytes % % (0.0-11.0) Monocytes % 3 % (0-11) (Manual) Eosinophils % % (0.0-7.0) Basophils % % (0.0-2.0) Metamyelocytes 5 % (0-0) % (manual) Nucleated Red 1 % (0-0) Blood Cells % Immature 0.160 Granulocytes # 10^3/ul (0.0-0. 031) Neutrophils # 10^3/ul (1.6-7. 5) Neutrophils # 7.5 (Manual) 10^3/ul (1.6-7. 5) Band 7.8 Neutrophils # 10^3/ul (0.0-0. 6) Lymphocytes 0.6 (Manual) 10^3/ul (0.8-2. 9) Lymphocytes # 10^3/ul (0.8-2. 9) Monocytes # 10^3/ul (0.3-0. 9) Monocytes # 0.4 (Manual) 10^3/ul (0.3-0. 9) Eosinophils # 10^3/ul (0.0-0. 5) Basophils # 10^3/ul (0.0-0. 1) Metamyelocytes 0.8 # 10^3/ul (0.0-0. 0) Nucleated Red 10^3/ul (0.0-0. Blood Cells # 0) Platelet DECREASED Estimate Polychromasia 1+ (0-0) Poikilocytosis 3+ (0-0) Anisocytosis 1+ (0-0) Macrocytosis 1+ (0-0) Spherocytes 2+ (0-0) Prothrombin 59.4 Time Sec (11.9-14.9) Prothrombin 4.6 Time Ratio INR 6.89 International Normalized Rati o Activated 65.5 Partial Thrombo Sec (23.0-35.0) plast Time Sodium Level 132 mmol/L (135-144 ) Potassium 4.0 Level mmol/L (3.5-5.1 ) Chloride Level 100 mmol/L (97-110) Carbon Dioxide 6 Level mmol/L (21-31) Anion Gap 26 (5-13) Blood Urea 13 mg/dl (7-20) Nitrogen Creatinine 1.16 mg/dl (0.44-1.0 0) Est Glomerular 50 mL/min (>60) Filtrat Rate mL/min Glucose Level 81 mg/dl (70-220) Lactic Acid 19.4 16.2 13.5 Level mmol/L (0.5-2.0 mmol/L (0.5-2. mmol/L (0.5-2. ) 0) 0) Calcium Level 7.8 mg/dl (8.4-10.2 ) Total 15.6 Bilirubin mg/dl (0.2-1.3) Direct 9.90 Bilirubin mg/dl (0.00-0.2 0) Indirect 5.7 Bilirubin mg/dl (0-1.1) Aspartate Amino 93 IU/L (15-46) Transf (AST/SGO T) Alanine 35 IU/L (13-69) Aminotransferas e (ALT/SGPT) Alkaline 26 Phosphatase IU/L (42-121) Total Protein 5.4 g/dl (6.1-8.1) Albumin 2.4 g/dl (3.3-4.9) Globulin 3.00 g/dl (1.3-3.2) Albumin/Globuli 0.80 n Ratio Random Cortisol > 123.0 ug/dl Urine Color KALEB (YELLOW) Urine Clarity TURBID (CLEAR) Urine pH 5.0 (5.0-9.0) Urine Specific 1.013 (1.003-1 [place] .030) Urine Ketones TRACE mg/dL (NEGATIV E) Urine Nitrite NEGATIVE mg/dL (NEGATIV E) Urine 1+ Bilirubin mg/dL (NEGATIV E) Urine NEGATIVE Urobilinogen mg/dL (NEGATIV E) Urine Leukocyte NEGATIVE Cindi/u Esterase l Urine > 182 Microscopic /HPF (0-5) RBC Urine 0 /HPF (0-5) Microscopic WBC Urine Bacteria FEW /HPF (NONE SEEN) Urine Granular MODERATE Casts /HPF (NONE SEEN) Urine Mucus FEW /HPF (NONE SEEN) Urine 3+ Hemoglobin mg/dL (NEGATIV E) Urine 287 Osmolality mOsm/kg (250-1 200) Urine Random 61.66 Creatinine mg/dl (20-320) Urine Random 37 Sodium mmol/L (30-90) Urine Glucose NEGATIVE mg/dL (NEGATIV E) Urine Total 43.0 Protein mg/dl (0.0-11. 9) REMY CHAMPION October 07, 2018 05:15
== END 2018-10-07 04:39 | disposition expired | DRG 871 ==
LOC: E/R 18:45 → ICU 22:27
PROVIDERS: ADMIT Family Medicine; ATTEND Internal Medicine
PROC: 02HV33Z Insertion of Infusion Device into Superior Vena Cava, Percutaneous Approach (ICD-10-PCS; principal; 2018-10-05)
DX: A41.51 Sepsis due to Escherichia coli [E. coli] (principal); R65.21 Severe sepsis with septic shock; K65.2 Spontaneous bacterial peritonitis; N17.0 Acute kidney failure with tubular necrosis; K72.00 Acute and subacute hepatic failure without coma; J18.9 Pneumonia, unspecified organism; D61.818 Other pancytopenia; E87.2 Acidosis; E87.1 Hypo-osmolality and hyponatremia; K70.31 Alcoholic cirrhosis of liver with ascites; K70.40 Alcoholic hepatic failure without coma; D63.8 Anemia in other chronic diseases classified elsewhere; Z66 Do not resuscitate
CPT/HCPCS: 36415; 36600; 71045; 76937; 80053; 80150; 81001; 81003; 82043; 82140; 82533; 82803; 83605; 83935; 84155; 84300; 84484; 85025; 85610; 85730; 86850; 86900; 86901; 87070; 87075; 87086; 87102; 87116; 89051; 93005; 96361; 96365; C9113; J0171; J0278; J0692; J0696; J1170; J1265; J1720; J1956; J2185; J2250; J2270; J3370; J7030; J7040; J7050; J7070; P9047